=== PATIENT | male | born 1945 | race Caucasian/White ===

== ENCOUNTER 2018-08-12 12:45 | Emergency (ER) | payer MEDICARE, OTHER, SELFPAY ==
[2018-08-12 12:48] VITALS: BP 192/105; PULSE 68; RESP 18; TEMP 36.7; O2SAT 97
--- NOTE | 2018-08-12 13:16 | ED.ABDPAIN ---
HPI - Abdominal Pain General Chief Complaint: Abdominal Pain Stated Complaint: SEVERE ABD PAIN Time Seen by Provider: 08/12/18 12:55 Source: patient Mode of arrival: ambulatory Limitations: no limitations History of Present Illness HPI narrative: Patient is a 73-year-old male with a history of kidney stones and myositis was at physical therapy today when he felt like he could not continue because of abdominal pain. He states that last night he went to bed without any symptoms. Woke up at 0200 hr in the morning with some right-sided abdominal pain. He did go back to sleep. When he woke up again the pain was there again in potential little bit worse. It has worsened throughout the day. Some nausea but no vomiting. Did have a bowel movement and urinated without any symptoms and did not changes abdominal pain. He has had prior abdominal surgeries. Has had his appendix removed. Has not tried anything for symptoms prior to arrival Related Data Home Medications Medication Instructions Recorded Confirmed allopurinol 300 mg PO DAILY #0 04/10/12 08/12/18 acetaminophen 1 dose PO PRN PRN 08/12/18 08/12/18 aspirin 81 mg PO DAILY 08/12/18 08/12/18 losartan 75 mg PO DAILY 08/12/18 08/12/18 melatonin 1 tab PO BEDTIME PRN 08/12/18 08/12/18 turmeric 1 tab PO DAILY 08/12/18 08/12/18 vit C,T-Ck-yysvv-lutein-zeaxan 1 cap PO BID 08/12/18 08/12/18 [PreserVision AREDS-2] Previous Rx's Medication Instructions Recorded cyclobenzaprine 10 mg PO TID PRN #14 tab 08/12/18 Allergies Allergy/AdvReac Type Severity Reaction Status Date / Time oxycodone [From Percocet] Allergy Intermediate Nausea Verified 08/12/18 12:54 codeine AdvReac Mild Redness of Verified 08/12/18 12:54 Skin Review of Systems Constitutional Denies fever(s) and Denies headache(s) ENT Ears, Nose, Mouth, and Throat: Denies headache(s) Cardiovascular Denies chest pain and Denies dyspnea Respiratory Denies dyspnea Gastrointestinal Gastrointestinal: Reports abdominal pain, Denies change in stool character, Reports nausea and Denies vomiting Genitourinary Denies hematuria, Denies flank pain, Denies urinary incontinence and Denies urinary urgency Musculoskeletal Denies myalgias and Denies arthralgias Integumentary/Breasts Denies rash Neurologic Denies headache(s) Hematologic/Lymphatic Comments: On aspirin PFSH Medical History Coronary artery disease (Acute) Hyperlipidemia (Acute) Hypertension (Acute) Kidney stones (Acute) Surgical History H/O lithotripsy (Acute) Hx of appendectomy (Acute) Social History Smoking Status: Former smoker Social History Smoking Status: Former smoker Exam Initial Vital Signs Initial Vital Signs: Vital Signs Temperature 98.1 F 08/12/18 12:48 Pulse Rate 68 08/12/18 12:48 Respiratory Rate 18 08/12/18 12:48 Blood Pressure 192/105 H 08/12/18 12:48 Pulse Oximetry 97 08/12/18 12:48 Const General: cooperative, healthy appearing, comfortable, well developed, well groomed and No acute distress Orientation: alert, awake and oriented x3 HENMT Head: normal to inspection and normocephalic Resp Effort & Inspection: normal respiratory effort Auscultation: clear to auscultation bilaterally Cardio Rate: regular rate Rhythm: regular rhythm GI Inspection: non-distended Palpation: soft, No firm, No guarding and tender (Right upper quadrant and right side of abdomen) Back/Spine/Pelvis Back: No CVA tenderness Skin Lesions: no lesions Rashes: no rashes Neuro General: alert, awake and oriented x3 Cognition: normal cognition Speech: speech normal Gait: normal gait Extrem General: normal to inspection and capillary refill normal Psych Appearance: grossly normal and well kempt Attitude: cooperative Course Orders Ordered: ED Orders 08/12/18 12:55 EKG-12 Lead Stat 08/12/18 13:17 CT abdomen pelvis w con Stat 08/12/18 13:20 CKMB Panel (CK + CKMB) Stat Complete Blood Count AUTO DIFF Stat Comprehensive Metabolic Panel Stat Lipase Stat 08/12/18 13:32 Partial Thromboplastin Time Stat Prothrombin Time INR Stat 08/12/18 15:04 Urine Microscopic Stat Discontinued Medications Sodium Chloride (Normal Saline 0.9%) 1,000 mls @ 1,000 mls/hr IV BOLUS ONE Stop: 08/12/18 13:54 Last Infusion: 08/12/18 14:45 Dose: 0 mls/hr Admin: 08/12/18 13:31 Dose: 1,000 mls/hr Vital Signs - 8 hr 08/12/18 12:48 08/12/18 13:35 08/12/18 14:00 Temperature 98.1 F Pulse Rate 68 66 66 Respiratory Rate 18 14 16 Blood Pressure 192/105 H Blood Pressure [Left Arm] 169/94 H 172/98 H Pulse Oximetry 97 95 93 08/12/18 15:03 Temperature Pulse Rate 67 Respiratory Rate 20 Blood Pressure Blood Pressure [Left Arm] 180/99 H Pulse Oximetry 98 MDM - Abdominal Pain Lab Data Attestation: I reviewed the patient's lab results. Result diagrams: 08/12/18 13:20 08/12/18 13:20 Lab Results 08/12/18 08/12/18 08/12/18 Range/Units 13:20 13:20 13:20 WBC 9.1 (4.5-11.0) X10^3/uL RBC 4.61 (4.5-5.9) X10^6/uL Hgb 15.5 (13.5-17.5) g/dL Hct 45.7 (41-53) % MCV 99.1 (80-100) fL MCH 33.6 (26-34) PG MCHC 34.0 (30-36) % RDW 13.7 (11.6-14.8) % Plt Count 209 (150-400) X10^3/uL Neut % (Auto) 59.8 (50-75) % Lymph % (Auto) 23.3 L (25-40) % [place] % (Auto) 12.6 (3-14) % Eos % (Auto) 3.1 (2-4) % Baso % (Auto) 1.2 (0-2) % Neut # (Auto) 5400 (0954-7113) /uL Lymph # (Auto) 2100 (2727-8236) /uL [place] # (Auto) 1100 H (0-900) /uL Eos # (Auto) 300 (0-450) /uL Baso # (Auto) 100 (0-100) /uL PT (10.1-12.7) SECONDS INR (0.9-1.3) APTT (26.4-36.2) SECONDS Sodium 139 (137-145) mmol/L Potassium 4.1 (3.4-5.1) mmol/L Chloride 105 (98-107) mmol/L Carbon Dioxide 23 (22-32) mmol/L BUN 20 (9-20) mg/dL Creatinine 0.80 (0.66-1.25) mg/dL Estimated GFR > 60.0 (>60) mL/min BUN/Creatinine Ratio 25.0 H (6-22) Glucose 118 H (80-110) mg/dL Calcium 9.1 (8.4-10.2) mg/dL Total Bilirubin 0.7 (0.2-1.3) mg/dL AST 63 H (17-59) IU/L ALT 61 (21-72) IU/L Alkaline Phosphatase 59 (38-126) U/L Total Creatine Kinase Cancelled CK-MB (CK-2) (<2.37) ng/mL CK-MB (CK-2) Rel Index (1.5-5.0) % Total Protein 8.1 (6.3-8.2) g/dL Albumin 4.4 (3.5-5.0) g/dL Globulin 3.7 (1.7-4.1) g/dL Albumin/Globulin Ratio 1.2 (1.0-2.8) Lipase 172 (23-300) U/L Urine RBC (0-5/HPF) Urine WBC (0-5/HPF) Urine Bacteria (None) Ur Culture Indicated? 08/12/18 08/12/18 08/12/18 Range/Units 13:20 13:32 15:04 WBC (4.5-11.0) X10^3/uL RBC (4.5-5.9) X10^6/uL Hgb (13.5-17.5) g/dL Hct (41-53) % MCV (80-100) fL MCH (26-34) PG MCHC (30-36) % RDW (11.6-14.8) % Plt Count (150-400) X10^3/uL Neut % (Auto) (50-75) % Lymph % (Auto) (25-40) % [place] % (Auto) (3-14) % Eos % (Auto) (2-4) % Baso % (Auto) (0-2) % Neut # (Auto) (4265-7500) /uL Lymph # (Auto) (8146-7126) /uL [place] # (Auto) (0-900) /uL Eos # (Auto) (0-450) /uL Baso # (Auto) (0-100) /uL PT 12.7 (10.1-12.7) SECONDS INR 1.1 (0.9-1.3) APTT 34 (26.4-36.2) SECONDS Sodium (137-145) mmol/L Potassium (3.4-5.1) mmol/L Chloride (98-107) mmol/L Carbon Dioxide (22-32) mmol/L BUN (9-20) mg/dL Creatinine (0.66-1.25) mg/dL Estimated GFR (>60) mL/min BUN/Creatinine Ratio (6-22) Glucose (80-110) mg/dL Calcium (8.4-10.2) mg/dL Total Bilirubin (0.2-1.3) mg/dL AST (17-59) IU/L ALT (21-72) IU/L Alkaline Phosphatase (38-126) U/L Total Creatine Kinase 742 H CK-MB (CK-2) 18.80 H (<2.37) ng/mL CK-MB (CK-2) Rel Index 2.5 (1.5-5.0) % Total Protein (6.3-8.2) g/dL Albumin (3.5-5.0) g/dL Globulin (1.7-4.1) g/dL Albumin/Globulin Ratio (1.0-2.8) Lipase (23-300) U/L Urine RBC 5-10/hpf H (0-5/HPF) Urine WBC None seen (0-5/HPF) Urine Bacteria None seen (None) Ur Culture Indicated? Cult not indicated Point of care testing: Urine Dip Bedside Urine Glucose Negative Bedside Urine Bilirubin - Negative Bedside Urine Ketone - Negative Urine Specific [place] 1.020 Bedside Urine Occult Blood +/- Bedside Urine pH 6.0 Bedside Urine Protein +/- 15 Bedside Urine Urobilinogen - Negative Bedside Urine Nitrite - Negative Bedside Urine Leukocytes - Negative Esterase Imaging Data CT scan - abdomen: Radiologist's impression: PROCEDURE: CT ABDOMEN PELVIS W CON INDICATIONS: right-sided abdominal pain TECHNIQUE: After the administration of intravenous contrast, 5 mm thick sections acquired from the diaphragm to the symphysis. 5 mm coronal and sagittal reformats were acquired. For radiation dose reduction, the following was used: automated exposure control, adjustment of mA and/or kV according to patient size. COMPARISON: [facility], MR, L-SPINE WITHOUT CONTRAST, 10/17/2015, 18:49. [facility], CT, KIDNEY/ URETER/BLADDER, 02/17/2011, 14:42. Formerly [facility], CT, ABDOMEN WITH AND WITHOUT CONTR, 07/09/2011, 10:57. Former[facility], CT, ABDOMEN/PELVIS WITH CONTRAST, 09/27/2004, 15:28. FINDINGS: Image quality: Significant streak artifact is present within the pelvis obscuring areas of evaluation secondary to metallic streak artifact from bilateral hip arthroplasty. ABDOMEN: Lung bases: Lung bases are clear. Heart size is normal. Solid organs: Liver is normal in size. Steatosis is present. Previous focus of relative enhancement within the medial right hepatic lobe is not well seen on current exam. Gallbladder is unremarkable. Biliary system is non dilated. Pancreas enhances normally. Spleen is normal in size and enhancement. No adrenal nodules. Kidneys are are mildly atrophic bilaterally, left greater than right. Multiple sub-centimeter renal calculi are present, appearing unchanged. Left renal cyst is unchanged. Peritoneum and bowel: Bowel loops demonstrate normal wall thickness and caliber. No free fluid or air. Nodes and vessels: No retroperitoneal or mesenteric adenopathy by size criteria. Aorta and inferior vena cava are normal in size. Miscellaneous: Fat-containing ventral hernia is noted. PELVIS: Genitourinary: Bladder wall thickness is normal. It is noted that significant portions of the inferior bladder are not well evaluated secondary to significant metallic streak artifact from bilateral hip arthroplasty. Miscellaneous: No inguinal hernias or adenopathy. Bones: No suspicious bony lesions. Superior endplate deformity at L3 is unchanged. IMPRESSION: 1. No visualized cause of acute right-sided abdominal pain. 2. Bilateral renal calculi, unchanged. No obstruction. Dictated by: Shabnam Rudolph M.D. on 08/12/2018 at 14:58 Approved by: Shabnam Rudolph M.D. on 08/12/2018 at 15:05 ECG Data Attestation: I personally reviewed and interpreted this ECG as follows: Prior ECG tracings: not available for review Interpretation: Sinus rhythm Ventricular rate is 65 First degree AV block Normal QRS Normal QTC Occasional PACs No ST T wave changes MDM Narrative Medical decision making narrative: Patient's CT scan was negative. Labs unremarkable. His CK today is actually better than what it has been in the past according to the patient. With a negative CT scan and unremarkable labs I do suspect that his symptoms today are musculoskeletal. He does have hydrocodone at home. Will send home with Flexeril. He has no rashes consistent with zoster. Patient was given return precautions. Will hold on further workup for now. With he and his expressed understanding and agreement with plan. Discharge Plan Departure Patient Disposition: Home Clinical Impression: Muscle spasm Abdominal pain Qualifiers: Abdominal location: unspecified location Qualified Code(s): R10.9 - Unspecified abdominal pain Instructions: DI for Abdominal Pain-Adult, DI for Muscle Spasm Activity Restrictions/Additional Instructions: I would recommend that you call Dr. Mojica for a follow-up. Take the pain medication you have at home for any discomfort. He could also take the muscle relaxer that you were given today for any discomfort as well. These medications can make you drowsy so no driving. Return to the emergency department for any new or worsening symptoms Prescriptions: New cyclobenzaprine 10 mg tablet 10 mg PO TID PRN (Reason: muscle spasm) Qty: 14 RF: 0 No Action allopurinol 300 MG tablet 300 mg PO DAILY Qty: 0 RF: 0 losartan 50 mg Tablet 75 mg PO DAILY RF: 0 acetaminophen 325 mg Tablet 1 dose PO PRN PRN (Reason: pain) RF: 0 aspirin 81 mg Tablet,Delayed Release (Dr/Ec) 81 mg PO DAILY RF: 0 PreserVision AREDS-2 [id number] Capsule 1 cap PO BID RF: 0 melatonin 1 tab PO BEDTIME PRN (Reason: Insomnia) RF: 0 turmeric 1 tab PO DAILY RF: 0 Referrals: Spike Mojica MD [Primary Care Provider] -
[2018-08-12] MEDS: SODIUM CHLORIDE 0.9% 1,000 ML 1000 ML IV (13:31)
[2018-08-12 13:33] LABS: Add Manual Diff / Slide Review NO; Basophils Absolute Auto 100 /uL (0-100); Basophils Percent Auto 1.2 % (0-2); Eosinophils Absolute Auto 300 /uL (0-450); Eosinophils Percent Auto 3.1 % (2-4); Hematocrit 45.7 % (41-53); Hemoglobin 15.5 g/dL (13.5-17.5); Lymphocytes Absolute Auto 2100 /uL (1100-4500); Lymphocytes Percent Auto 23.3 % (25-40); Mean Corpuscular Hemoglobin 33.6 PG (26-34); Mean Corpuscular Volume 99.1 fL (80-100); Monocytes Absolute Auto 1100 /uL (0-900); Monocytes Percent Auto 12.6 % (3-14); Neutrophils Absolute Auto 5400 /uL (1500-7000); Neutrophils Percent Auto 59.8 % (50-75); Platelet Count 209 X10^3/uL (150-400); Red Blood Cell Count 4.61 X10^6/uL (4.5-5.9); Red Cell Distribution Width 13.7 % (11.6-14.8); White Blood Cell Count 9.1 X10^3/uL (4.5-11.0)
[2018-08-12 13:35] VITALS: BP 169/94; PULSE 66; RESP 14; O2SAT 95
[2018-08-12 13:39] LABS: Creatine Kinase 742 U/L (55-170)
[2018-08-12 13:41] LABS: Alanine Aminotransferase 61 IU/L (21-72); Albumin 4.4 g/dL (3.5-5.0); Albumin Globulin Ratio 1.2 (1.0-2.8); Alkaline Phosphatase 59 U/L (38-126); Aspartate Aminotransferase 63 IU/L (17-59); Bilirubin Total 0.7 mg/dL (0.2-1.3); Blood Urea Nitrogen 20 mg/dL (9-20); Calcium 9.1 mg/dL (8.4-10.2); Carbon Dioxide 23 mmol/L (22-32); Chloride 105 mmol/L (98-107); Estimated Glomerular Filt Rate > 60.0 mL/min (>60); Globulin 3.7 g/dL (1.7-4.1); Glucose 118 mg/dL (80-110); HEMOLYSIS 27 (0-50); Lipase 172 U/L (23-300); Potassium 4.1 mmol/L (3.4-5.1); Sodium 139 mmol/L (137-145); Total Protein 8.1 g/dL (6.3-8.2)
[2018-08-12 13:43] LABS: INR 1.1 (0.9-1.3); Prothrombin Time 12.7 SECONDS (10.1-12.7)
[2018-08-12 13:46] LABS: PTT Partial Thromboplastin Tim 34 SECONDS (26.4-36.2)
[2018-08-12 13:55] LABS: CKMB % Relative Index 2.5 % (1.5-5.0)
[2018-08-12 14:00] VITALS: BP 172/98; PULSE 66; RESP 16; O2SAT 93
[2018-08-12 15:03] VITALS: BP 180/99; PULSE 67; RESP 20; O2SAT 98
[2018-08-12 15:25] LABS: Bacteria Urine None Seen; WBC Urine None Seen (0-5/HPF)
[2018-08-12 15:45] LABS: Culture Indicated Urine Cult Not Indicated; RBC Urine 5-10/HPF (0-5/HPF)
[2018-08-12 16:08] VITALS: BP 171/104; PULSE 65; RESP 19; O2SAT 97
== END 2018-08-12 16:09 | disposition home or self-care (01) ==
PROVIDERS: Emergency Provider Emergency Medicine; PCP Family Medicine
DX: R10.9 Unspecified abdominal pain (principal)
CPT/HCPCS: 36415; 36591; 74177; 80053; 81003; 81015; 82550; 82553; 83690; 85025; 85610; 85730; 93005; 96360; 99283; 99285; Q9967

== ENCOUNTER 2018-12-15 12:00 | Outpatient (RCR) | payer MEDICARE, OTHER, SELFPAY ==
--- NOTE | 2018-05-01 12:45 | PT.OIE ---
Current Diagnoses Myositis, unspecified (05/01/18) Provider Visit Care Team Role Provider Type Clement Deleon MD Family Provider Physician Specialty: Cardiology Address: [address] [place] [address] [address], [place], [address] Email: Spike Mojica MD Attending Provider Physician Primary Care Provider Specialty: Family Practice Address: [address] [facility] [place], [address] Email: Physical Therapy Initial Evaluation PT-OP-A Visit Information Start: 05/02/18 13:13 Freq: Status: Active Protocol: Document 05/01/18 12:45 RCC (Rec: 05/02/18 13:42 RCC [email or web address]) Out-Patient Physical Therapy Visit Information Visit Information Visit Type Initial Evaluation Visit Start Time 12:00 Visit Stop Time 12:45 Total Visit Minutes 45 Visit Number 1 Number of RESEARCH PROFESSIONAL Visits 0 Evaluation Information Evaluation Date 05/01/18 PT-OP-B Current Condition Start: 05/02/18 13:13 Freq: Status: Active Protocol: Document 05/01/18 12:45 RCC (Rec: 05/02/18 13:42 RCC [email or web address]) Current Condition History of Current Condition Onset Date 2015 Current Complaints SOB, weakness, unable to ambulate for exercise, pain all over body History of Current Condition Pt is a 73 y/o male presenting to physical therapy with a c/ o weakness, SOB with activity, pain throughout the body and inability to walk outdoors for exercise. 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 He states that initially his weakness and loss of function gradually started in 2015 after his from cancer. Pt admits he would sit for 6-8 hours a day, doing nothing. He has a complex medical history (see below). Pt admits that now he is embarrassed to see what little exercise he can do now but is extremely motivated to get better. He has found a female partner which he would like to be able to walk outdoors on trails with. 2 years ago, he was able to walk about 2.5 miles using walking sticks/poles. Treatment Goals Patient/Caregiver Goals walk outdoors on trails for exercise (walking on pavement increases his arthritic pain). Prior Functional Status Baseline Function- Mobility Modified Independent Baseline Function- Gait modified indep with increased time to travel community distances Baseline Function- Recreation/Hobbies trail walking 2.5 miles with walking sticks (2 yrs ago) Current Functional Impairments (Reported) Functional Limitations- Mobility/Gait fatigue/SOB and increased pain with community ambulation Functional Limitations- Recreation/ unable to perform Hobbies Personal Factors Other Personal Factors That May Effect cardiac history with 2 stents Therapy/Recovery placed, OA, L popliteal artery surgery/reconstruction, h/o prostate CA with radiation (45 sessions), HTN, B MIGUEL, depression since 2015 ( of spouse), multiple back and knee surgeries. PT-OP-E Functional Tests Start: 05/02/18 13:13 Freq: Status: Active Protocol: Document 05/01/18 12:45 RCC (Rec: 05/02/18 13:42 RCC [email or web address]) Functional Tests 6 Minute Walk Test Distance 803 Device Used none Comments 2 standing rest breaks; O2 saturation 92-96% on RA, HR 80 to 109 bpm PT-OP-G Mobility & Gait Start: 05/02/18 13:13 Freq: Status: Active Protocol: Document 05/01/18 12:45 RCC (Rec: 05/02/18 13:42 RCC [email or web address]) OP Mobility Evaluation Bed Mobility Rolling indep. Supine to and from Sit indep. but slow due to pain/ weakness OP Gait Assessment Gait Deviations General Gait Pattern Antalgic Decreased Feet Clearance Flexed Trunk Lateral Trunk Lean Wide Based Gait Stair Climbing Evaluation Evaluation Level of Assist On Stairs Independent Devices Stair Climbing Assistive Devices Left Railing Right Railing Technique/Endurance Stair Climbing Direction Ascend and Descend Stair Climbing Technique Step Over Step Number of Steps Climbed 6 Comments Stair Climbing Comments antalgic, excessive BLE ER, decreased eccentric control of B knees when descending. PT-OP-M Strength Start: 05/02/18 13:13 Freq: Status: Active Protocol: Document 05/01/18 12:45 RCC (Rec: 05/02/18 13:42 RCC [email or web address]) Hip Strength Hip Manual Muscle Testing Right Flexion (L2) 3+ Fair+ External Rotation 3 Fair Internal Rotation 4 Good Left Flexion (L2) 4- Good- External Rotation 3 Fair Internal Rotation 4 Good Knee Strength Knee Manual Muscle Testing Right Flexion (S2) 4 Good Extension (L3) 4+ Good+ Left Flexion (S2) 4- Good- Extension (L3) 4 Good Ankle/Foot Strength Ankle and Foot Manual Muscle Testing Right Dorsiflexion (L4) 4+ Good+ Left Dorsiflexion (L4) 4+ Good+ PT-OP-T Assessment and Plan Start: 05/02/18 13:13 Freq: Status: Active Protocol: Document 05/01/18 12:45 RCC (Rec: 05/02/18 13:42 RCC [email or web address]) Physical Therapy Assessment Rehab Potential Rehabilitation Potential Good Evaluation Complexity Number of Personal Factors/Comorbidities 3 or More Number of Body Systems Impaired 4 or More Clinical Presentation at Evaluation Evolving Impairments Impairments Activity Tolerance Functional Activities Functional Mobility Gait Pain Posture Strength Goals 6 minute walk test Impairment 6 MWT- 803 ft Short Term Goal (STG) >1,000 ft with 6 Minute Walk Test to improve exercise tolerance and decrease risk for falls. STG Duration 4 weeks Bowling Floor Desk Clerk Goal (LTG) >1,200 ft with 6 Minute Walk Test to improve exercise tolerance and decrease risk for falls. LTG Duration 8 weeks trail walking Impairment inability to walk on trails due to pain and fatigue Short Term Goal (STG) pt will walk outdoors on trails with bilateral walking sticks for 15 min, 3 days per week. STG Duration 4 weeks Bowling Floor Desk Clerk Goal (LTG) pt will walk outdoors on trails with bilateral walking sticks for 30 min, 5 days per week as part of an indep. home program for exercise and cardiovascular benefits. LTG Duration 8 weeks LE strength Impairment LE weakness Short Term Goal (STG) 4/5 or greater LE strength with MMT to improve functional mobility and tolerance to stairs in community. STG Duration 4 weeks Retirement Goal (LTG) 4+/5 or greater LE strength with MMT to improve functional mobility and tolerance to stairs in community. LTG Duration 8 weeks Assessment Summary Assessment Pt presents with multiple co- morbidities which have impaired his overall function progressively worsening since the passing of his 2 years ago. Pt is not longer able to perform daily activities, including outdoor ambulation/walking program, due to weakness, pain, and overall deconditioning. Pt appears highly motivated to improve, but is not safe to perform indep. home exercise program yet for strengthening and cardiovascular activities. Pt with general LE weakness, and is only able to ambulate 803 ft in 6 minutes (peers in his age group mean distance is >1500 ft) therefore he is well below the normal activity level for peers of the same age. Pt would greatly benefit from skilled physical therapy to progress his strength, gait tolerance, and overall improvements with activity level to progress toward his functional goals and be able to tolerate stairs and walking outdoors with his significant other. Pt would greatly benefit from aquatic physical therapy as well, but pt admits to feeling apprehensive given his current physical appearance. Physical Therapy Plan Frequency and Duration Frequency of Treatment 3x/Week Duration of Treatment 8 weeks Plan of Care Start Date 05/01/18 Plan of Care End Date 06/26/18 Therapeutic Interventions Therapeutic Interventions Aquatic Therapy Balance Training Gait Training Home Exercise Program Manual Therapy Neuromuscular Re-education Orthotic/Prosthetic Management Patient/Caregiver Education Self-Care/Home Management Taping Therapeutic Activities Therapeutic Exercises Modalities Cold Pack/Ice Massage Electric Stimulation Hot Packs Ultrasound Next Visit Focus/Plan Next Note Type Treatment Note Next Visit Plan hip IR/ER strengthening, Shuttle leg press, B heel raises, Sci-fit (<5 min), hip flexion (standing or supine and add to HEP).
--- NOTE | 2018-05-02 12:45 | PT.OIE ---
Current Diagnoses Myositis, unspecified (05/01/18) Provider Visit Care Team Role Provider Type Clement Deleon MD Family Provider Physician Specialty: Cardiology Address: [address] [place] [address] [address], [place], [address] Email: Spike Mojica MD Attending Provider Physician Primary Care Provider Specialty: Family Practice Address: [address] [facility], [address] Email: Physical Therapy Initial Evaluation PT-OP-A Visit Information Start: 05/02/18 13:13 Freq: Status: Active Protocol: Document 05/01/18 12:45 RCC (Rec: 05/02/18 13:42 RCC [email or web address]) Out-Patient Physical Therapy Visit Information Visit Information Visit Type Initial Evaluation Visit Start Time 12:00 Visit Stop Time 12:45 Total Visit Minutes 45 Visit Number 1 Number of VEHICLE CARE SPECIALIST Visits 0 Evaluation Information Evaluation Date 05/01/18 PT-OP-B Current Condition Start: 05/02/18 13:13 Freq: Status: Active Protocol: Document 05/01/18 12:45 RCC (Rec: 05/02/18 13:42 RCC [email or web address]) Current Condition History of Current Condition Onset Date 2015 Current Complaints SOB, weakness, unable to ambulate for exercise, pain all over body History of Current Condition Pt is a 73 y/o male presenting to physical therapy with a c/ o weakness, SOB with activity, pain throughout the body and inability to walk outdoors for exercise. 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 He states that initially his weakness and loss of function gradually started in 2015 after his from cancer. Pt admits he would sit for 6-8 hours a day, doing nothing. He has a complex medical history (see below). Pt admits that now he is embarrassed to see what little exercise he can do now but is extremely motivated to get better. He has found a female partner which he would like to be able to walk outdoors on trails with. 2 years ago, he was able to walk about 2.5 miles using walking sticks/poles. Treatment Goals Patient/Caregiver Goals walk outdoors on trails for exercise (walking on pavement increases his arthritic pain). Prior Functional Status Baseline Function- Mobility Modified Independent Baseline Function- Gait modified indep with increased time to travel community distances Baseline Function- Recreation/Hobbies trail walking 2.5 miles with walking sticks (2 yrs ago) Current Functional Impairments (Reported) Functional Limitations- Mobility/Gait fatigue/SOB and increased pain with community ambulation Functional Limitations- Recreation/ unable to perform Hobbies Personal Factors Other Personal Factors That May Effect cardiac history with 2 stents Therapy/Recovery placed, OA, L popliteal artery surgery/reconstruction, h/o prostate CA with radiation (45 sessions), HTN, B MIGUEL, depression since 2015 ( of spouse), multiple back and knee surgeries. PT-OP-E Functional Tests Start: 05/02/18 13:13 Freq: Status: Active Protocol: Document 05/01/18 12:45 RCC (Rec: 05/02/18 13:42 RCC [email or web address]) Functional Tests 6 Minute Walk Test Distance 803 Device Used none Comments 2 standing rest breaks; O2 saturation 92-96% on RA, HR 80 to 109 bpm PT-OP-G Mobility & Gait Start: 05/02/18 13:13 Freq: Status: Active Protocol: Document 05/01/18 12:45 RCC (Rec: 05/02/18 13:42 RCC [email or web address]) OP Mobility Evaluation Bed Mobility Rolling indep. Supine to and from Sit indep. but slow due to pain/ weakness OP Gait Assessment Gait Deviations General Gait Pattern Antalgic Decreased Feet Clearance Flexed Trunk Lateral Trunk Lean Wide Based Gait Stair Climbing Evaluation Evaluation Level of Assist On Stairs Independent Devices Stair Climbing Assistive Devices Left Railing Right Railing Technique/Endurance Stair Climbing Direction Ascend and Descend Stair Climbing Technique Step Over Step Number of Steps Climbed 6 Comments Stair Climbing Comments antalgic, excessive BLE ER, decreased eccentric control of B knees when descending. PT-OP-M Strength Start: 05/02/18 13:13 Freq: Status: Active Protocol: Document 05/01/18 12:45 RCC (Rec: 05/02/18 13:42 RCC [email or web address]) Hip Strength Hip Manual Muscle Testing Right Flexion (L2) 3+ Fair+ External Rotation 3 Fair Internal Rotation 4 Good Left Flexion (L2) 4- Good- External Rotation 3 Fair Internal Rotation 4 Good Knee Strength Knee Manual Muscle Testing Right Flexion (S2) 4 Good Extension (L3) 4+ Good+ Left Flexion (S2) 4- Good- Extension (L3) 4 Good Ankle/Foot Strength Ankle and Foot Manual Muscle Testing Right Dorsiflexion (L4) 4+ Good+ Left Dorsiflexion (L4) 4+ Good+ PT-OP-T Assessment and Plan Start: 05/02/18 13:13 Freq: Status: Active Protocol: Document 05/01/18 12:45 RCC (Rec: 05/02/18 13:42 RCC [email or web address]) Physical Therapy Assessment Rehab Potential Rehabilitation Potential Good Evaluation Complexity Number of Personal Factors/Comorbidities 3 or More Number of Body Systems Impaired 4 or More Clinical Presentation at Evaluation Evolving Impairments Impairments Activity Tolerance Functional Activities Functional Mobility Gait Pain Posture Strength Goals 6 minute walk test Impairment 6 MWT- 803 ft Short Term Goal (STG) >1,000 ft with 6 Minute Walk Test to improve exercise tolerance and decrease risk for falls. STG Duration 4 weeks Wood Tile Installer Goal (LTG) >1,200 ft with 6 Minute Walk Test to improve exercise tolerance and decrease risk for falls. LTG Duration 8 weeks trail walking Impairment inability to walk on trails due to pain and fatigue Short Term Goal (STG) pt will walk outdoors on trails with bilateral walking sticks for 15 min, 3 days per week. STG Duration 4 weeks Wood Tile Installer Goal (LTG) pt will walk outdoors on trails with bilateral walking sticks for 30 min, 5 days per week as part of an indep. home program for exercise and cardiovascular benefits. LTG Duration 8 weeks LE strength Impairment LE weakness Short Term Goal (STG) 4/5 or greater LE strength with MMT to improve functional mobility and tolerance to stairs in community. STG Duration 4 weeks Half-Way Goal (LTG) 4+/5 or greater LE strength with MMT to improve functional mobility and tolerance to stairs in community. LTG Duration 8 weeks Assessment Summary Assessment Pt presents with multiple co- morbidities which have impaired his overall function progressively worsening since the passing of his 2 years ago. Pt is not longer able to perform daily activities, including outdoor ambulation/walking program, due to weakness, pain, and overall deconditioning. Pt appears highly motivated to improve, but is not safe to perform indep. home exercise program yet for strengthening and cardiovascular activities. Pt with general LE weakness, and is only able to ambulate 803 ft in 6 minutes (peers in his age group mean distance is >1500 ft) therefore he is well below the normal activity level for peers of the same age. Pt would greatly benefit from skilled physical therapy to progress his strength, gait tolerance, and overall improvements with activity level to progress toward his functional goals and be able to tolerate stairs and walking outdoors with his significant other. Pt would greatly benefit from aquatic physical therapy as well, but pt admits to feeling apprehensive given his current physical appearance. Physical Therapy Plan Frequency and Duration Frequency of Treatment 3x/Week Duration of Treatment 8 weeks Plan of Care Start Date 05/01/18 Plan of Care End Date 06/26/18 Therapeutic Interventions Therapeutic Interventions Aquatic Therapy Balance Training Gait Training Home Exercise Program Manual Therapy Neuromuscular Re-education Orthotic/Prosthetic Management Patient/Caregiver Education Self-Care/Home Management Taping Therapeutic Activities Therapeutic Exercises Modalities Cold Pack/Ice Massage Electric Stimulation Hot Packs Ultrasound Next Visit Focus/Plan Next Note Type Treatment Note Next Visit Plan hip IR/ER strengthening, Shuttle leg press, B heel raises, Sci-fit (<5 min), hip flexion (standing or supine and add to HEP).
--- NOTE | 2018-05-05 16:44 | PT.OTN ---
Current Diagnoses Myositis, unspecified (05/05/18) Physical Therapy Treatment Note PT-OP-A Visit Information Start: 05/02/18 13:13 Freq: Status: Active Protocol: Document 05/05/18 16:37 GGD (Rec: 05/05/18 16:43 GGD [email or web address]) Out-Patient Physical Therapy Visit Information Visit Information Visit Type Treatment Note Visit Start Time 14:30 Visit Stop Time 15:15 Total Visit Minutes 45 Visit Number 2 Number of SENIOR OPERATIONS ANALYST Visits 1 Evaluation Information Evaluation Date 05/01/18 PT-OP-B Current Condition Start: 05/02/18 13:13 Freq: Status: Active Protocol: Document 05/01/18 12:45 RCC (Rec: 05/02/18 13:42 RCC [email or web address]) Current Condition History of Current Condition Onset Date 2015 Current Complaints SOB, weakness, unable to ambulate for exercise, pain all over body History of Current Condition Pt is a 73 y/o male presenting to physical therapy with a c/ o weakness, SOB with activity, pain throughout the body and inability to walk outdoors for exercise. 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 He states that initially his weakness and loss of function gradually started in 2015 after his from cancer. Pt admits he would sit for 6-8 hours a day, doing nothing. He has a complex medical history (see below). Pt admits that now he is embarrassed to see what little exercise he can do now but is extremely motivated to get better. He has found a female partner which he would like to be able to walk outdoors on trails with. 2 years ago, he was able to walk about 2.5 miles using walking sticks/poles. Treatment Goals Patient/Caregiver Goals walk outdoors on trails for exercise (walking on pavement increases his arthritic pain). Prior Functional Status Baseline Function- Mobility Modified Independent Baseline Function- Gait modified indep with increased time to travel community distances Baseline Function- Recreation/Hobbies trail walking 2.5 miles with walking sticks (2 yrs ago) Current Functional Impairments (Reported) Functional Limitations- Mobility/Gait fatigue/SOB and increased pain with community ambulation Functional Limitations- Recreation/ unable to perform Hobbies Personal Factors Other Personal Factors That May Effect cardiac history with 2 stents Therapy/Recovery placed, OA, L popliteal artery surgery/reconstruction, h/o prostate CA with radiation (45 sessions), HTN, B MIGUEL, depression since 2016 ( of spouse), multiple back and knee surgeries. PT-OP-C Subjective Start: 05/02/18 13:13 Freq: Status: Active Protocol: Document 05/05/18 16:37 GGD (Rec: 05/05/18 16:43 GGD [email or web address]) OP-PT Subjective Patient Comments Patient Comments Pt states he is sore today. PT-OP-E Functional Tests Start: 05/02/18 13:13 Freq: Status: Active Protocol: Document 05/01/18 12:45 RCC (Rec: 05/02/18 13:42 RCC [email or web address]) Functional Tests 6 Minute Walk Test Distance 803 Device Used none Comments 2 standing rest breaks; O2 saturation 92-96% on RA, HR 80 to 109 bpm PT-OP-G Mobility & Gait Start: 05/02/18 13:13 Freq: Status: Active Protocol: Document 05/01/18 12:45 RCC (Rec: 05/02/18 13:42 RCC [email or web address]) OP Mobility Evaluation Bed Mobility Rolling indep. Supine to and from Sit indep. but slow due to pain/ weakness OP Gait Assessment Gait Deviations General Gait Pattern Antalgic Decreased Feet Clearance Flexed Trunk Lateral Trunk Lean Wide Based Gait Stair Climbing Evaluation Evaluation Level of Assist On Stairs Independent Devices Stair Climbing Assistive Devices Left Railing Right Railing Technique/Endurance Stair Climbing Direction Ascend and Descend Stair Climbing Technique Step Over Step Number of Steps Climbed 6 Comments Stair Climbing Comments antalgic, excessive BLE ER, decreased eccentric control of B knees when descending. PT-OP-M Strength Start: 05/02/18 13:13 Freq: Status: Active Protocol: Document 05/01/18 12:45 RCC (Rec: 05/02/18 13:42 RCC [email or web address]) Hip Strength Hip Manual Muscle Testing Right Flexion (L2) 3+ Fair+ External Rotation 3 Fair Internal Rotation 4 Good Left Flexion (L2) 4- Good- External Rotation 3 Fair Internal Rotation 4 Good Knee Strength Knee Manual Muscle Testing Right Flexion (S2) 4 Good Extension (L3) 4+ Good+ Left Flexion (S2) 4- Good- Extension (L3) 4 Good Ankle/Foot Strength Ankle and Foot Manual Muscle Testing Right Dorsiflexion (L4) 4+ Good+ Left Dorsiflexion (L4) 4+ Good+ PT-OP-Q Treatments Start: 05/02/18 13:13 Freq: Status: Active Protocol: Document 05/05/18 16:37 GGD (Rec: 05/05/18 16:43 GGD [email or web address]) Cardio Equipment Recumbent Stepper (Sci-Fit) Duration (Minutes) 6 Resistance 1 Gym Equipment Shuttle Recovery Unilateral Squats Resistance 50# Reps/Time 4 Bilateral Squats Resistance 87# Reps/Time 3 Therapeutic Exercises Supine Exercises 1 Supine Exercise Name SLR Side bilateral Reps/Minutes 10 Sidelying Exercises 2 Sidelying Exercise Name reverse Clamshells Side bilateral Reps/Minutes 15 1 Sidelying Exercise Name Clamshells Side bilateral Reps/Minutes 15 Standing Exercises 2 Standing Exercise Name marches Side bilateral Reps/Minutes 10 1 Standing Exercise Name Heel raises Side bilateral Reps/Minutes 20 Neuro Re-Education Treatment Balance Activities 1 Details SLS Reps/Duration 4 Self-Care/Home Management Treatment Education Patient Education Home Exercise Program PT-OP-T Assessment and Plan Start: 05/02/18 13:13 Freq: Status: Active Protocol: Document 05/05/18 16:37 GGD (Rec: 05/05/18 16:43 GGD [email or web address]) Physical Therapy Assessment Assessment Summary Assessment Pt need cues for pace with exercises. He did fatigue, but didn't need rest breaks. HE was able to progress HEP without increase in pain. Physical Therapy Plan Frequency and Duration Frequency of Treatment 3x/Week Duration of Treatment 8 weeks Plan of Care Start Date 05/01/18 Plan of Care End Date 06/26/18 Next Visit Focus/Plan Next Note Type Treatment Note Next Visit Plan Progress LE strengthening, balance and HEP.
--- NOTE | 2018-05-08 10:30 | PT.OTN ---
Current Diagnoses Myositis, unspecified (05/08/18) Physical Therapy Treatment Note PT-OP-A Visit Information Start: 05/02/18 13:13 Freq: Status: Active Protocol: Document 05/08/18 10:30 RCC (Rec: 05/08/18 15:48 RCC [email or web address]) Out-Patient Physical Therapy Visit Information Visit Information Visit Type Treatment Note Visit Start Time 09:47 Visit Stop Time 10:30 Total Visit Minutes 43 Visit Number 3 Number of ALMOND PASTE MIXER Visits 0 Evaluation Information Evaluation Date 05/01/18 PT-OP-B Current Condition Start: 05/02/18 13:13 Freq: Status: Active Protocol: Document 05/01/18 12:45 RCC (Rec: 05/02/18 13:42 RCC [email or web address]) Current Condition History of Current Condition Onset Date 2015 Current Complaints SOB, weakness, unable to ambulate for exercise, pain all over body History of Current Condition Pt is a 73 y/o male presenting to physical therapy with a c/ o weakness, SOB with activity, pain throughout the body and inability to walk outdoors for exercise. 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 He states that initially his weakness and loss of function gradually started in 2015 after his from cancer. Pt admits he would sit for 6-8 hours a day, doing nothing. He has a complex medical history (see below). Pt admits that now he is embarrassed to see what little exercise he can do now but is extremely motivated to get better. He has found a female partner which he would like to be able to walk outdoors on trails with. 2 years ago, he was able to walk about 2.5 miles using walking sticks/poles. Treatment Goals Patient/Caregiver Goals walk outdoors on trails for exercise (walking on pavement increases his arthritic pain). Prior Functional Status Baseline Function- Mobility Modified Independent Baseline Function- Gait modified indep with increased time to travel community distances Baseline Function- Recreation/Hobbies trail walking 2.5 miles with walking sticks (2 yrs ago) Current Functional Impairments (Reported) Functional Limitations- Mobility/Gait fatigue/SOB and increased pain with community ambulation Functional Limitations- Recreation/ unable to perform Hobbies Personal Factors Other Personal Factors That May Effect cardiac history with 2 stents Therapy/Recovery placed, OA, L popliteal artery surgery/reconstruction, h/o prostate CA with radiation (45 sessions), HTN, B MIGUEL, depression since 2016 ( of spouse), multiple back and knee surgeries. PT-OP-C Subjective Start: 05/02/18 13:13 Freq: Status: Active Protocol: Document 05/08/18 10:30 RCC (Rec: 05/08/18 15:48 RCC [email or web address]) OP-PT Subjective Patient Comments Patient Comments Pt was sore but no increased pain since last session. PT-OP-E Functional Tests Start: 05/02/18 13:13 Freq: Status: Active Protocol: Document 05/01/18 12:45 RCC (Rec: 05/02/18 13:42 RCC [email or web address]) Functional Tests 6 Minute Walk Test Distance 803 Device Used none Comments 2 standing rest breaks; O2 saturation 92-96% on RA, HR 80 to 109 bpm PT-OP-G Mobility & Gait Start: 05/02/18 13:13 Freq: Status: Active Protocol: Document 05/01/18 12:45 RCC (Rec: 05/02/18 13:42 RCC [email or web address]) OP Mobility Evaluation Bed Mobility Rolling indep. Supine to and from Sit indep. but slow due to pain/ weakness OP Gait Assessment Gait Deviations General Gait Pattern Antalgic Decreased Feet Clearance Flexed Trunk Lateral Trunk Lean Wide Based Gait Stair Climbing Evaluation Evaluation Level of Assist On Stairs Independent Devices Stair Climbing Assistive Devices Left Railing Right Railing Technique/Endurance Stair Climbing Direction Ascend and Descend Stair Climbing Technique Step Over Step Number of Steps Climbed 6 Comments Stair Climbing Comments antalgic, excessive BLE ER, decreased eccentric control of B knees when descending. PT-OP-M Strength Start: 05/02/18 13:13 Freq: Status: Active Protocol: Document 05/01/18 12:45 RCC (Rec: 05/02/18 13:42 RCC [email or web address]) Hip Strength Hip Manual Muscle Testing Right Flexion (L2) 3+ Fair+ External Rotation 3 Fair Internal Rotation 4 Good Left Flexion (L2) 4- Good- External Rotation 3 Fair Internal Rotation 4 Good Knee Strength Knee Manual Muscle Testing Right Flexion (S2) 4 Good Extension (L3) 4+ Good+ Left Flexion (S2) 4- Good- Extension (L3) 4 Good Ankle/Foot Strength Ankle and Foot Manual Muscle Testing Right Dorsiflexion (L4) 4+ Good+ Left Dorsiflexion (L4) 4+ Good+ PT-OP-Q Treatments Start: 05/02/18 13:13 Freq: Status: Active Protocol: Document 05/08/18 10:30 RCC (Rec: 05/08/18 15:48 RCC [email or web address]) Cardio Equipment Recumbent Stepper (Sci-Fit) Duration (Minutes) 8 Resistance 2 Other 1.37 mi Gym Equipment Cable Column (Body Solid) Leg Curl Resistance 50# Reps/Time 2x15 Leg Extension Resistance 40# Reps/Time 2x15 Shuttle Recovery Unilateral Squats Resistance 50# Reps/Time 2x15 Bilateral Squats Resistance 87# Reps/Time 2x15 Therapeutic Exercises Standing Exercises heel cord stretch Standing Exercise Name heel cord stretch Side bilateral Equipment Used HOLLY Reps/Minutes 2x30 sec HS stretch Standing Exercise Name hamstring stretch Side bilateral Equipment Used stairs Reps/Minutes 2x30 sec resisted walking Standing Exercise Name lateral, forward, backward Side bilateral Resistance L2 band Reps/Minutes 2 laps each PT-OP-T Assessment and Plan Start: 05/02/18 13:13 Freq: Status: Active Protocol: Document 05/08/18 10:30 RCC (Rec: 05/08/18 15:48 RCC [email or web address]) Physical Therapy Assessment Assessment Summary Assessment Pt required manual assistance getting off of the Shuttle Recovery leg press today due to low back, but no increased low back pain today after session. Pt would greatly benefit from careful progression of core stability to support lumbar spine. He continues to be highly motivated to participate in therapy. Physical Therapy Plan Frequency and Duration Frequency of Treatment 3x/Week Duration of Treatment 8 weeks Plan of Care Start Date 05/01/18 Plan of Care End Date 06/26/18 Next Visit Focus/Plan Next Note Type Treatment Note Next Visit Plan transverse abdominal activation->to marching, core activation in standing ( Shuttle Balance Board?)
--- NOTE | 2018-05-11 15:24 | PT.OTN ---
Current Diagnoses Myositis, unspecified (05/11/18) Physical Therapy Treatment Note PT-OP-A Visit Information Start: 05/02/18 13:13 Freq: Status: Active Protocol: Document 05/11/18 08:21 EA (Rec: 05/11/18 08:26 EA [id number]) Out-Patient Physical Therapy Visit Information Visit Information Visit Type Treatment Note Visit Start Time 07:30 Visit Stop Time 08:13 Total Visit Minutes 43 Visit Number 4 Number of KITCHEN STEWARDESS Visits 0 PT-OP-B Current Condition Start: 05/02/18 13:13 Freq: Status: Active Protocol: Document 05/01/18 12:45 RCC (Rec: 05/02/18 13:42 RCC [email or web address]) Current Condition History of Current Condition Onset Date 2015 Current Complaints SOB, weakness, unable to ambulate for exercise, pain all over body History of Current Condition Pt is a 73 y/o male presenting to physical therapy with a c/ o weakness, SOB with activity, pain throughout the body and inability to walk outdoors for exercise. 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 He states that initially his weakness and loss of function gradually started in 2015 after his from cancer. Pt admits he would sit for 6-8 hours a day, doing nothing. He has a complex medical history (see below). Pt admits that now he is embarrassed to see what little exercise he can do now but is extremely motivated to get better. He has found a female partner which he would like to be able to walk outdoors on trails with. 2 years ago, he was able to walk about 2.5 miles using walking sticks/poles. Treatment Goals Patient/Caregiver Goals walk outdoors on trails for exercise (walking on pavement increases his arthritic pain). Prior Functional Status Baseline Function- Mobility Modified Independent Baseline Function- Gait modified indep with increased time to travel community distances Baseline Function- Recreation/Hobbies trail walking 2.5 miles with walking sticks (2 yrs ago) Current Functional Impairments (Reported) Functional Limitations- Mobility/Gait fatigue/SOB and increased pain with community ambulation Functional Limitations- Recreation/ unable to perform Hobbies Personal Factors Other Personal Factors That May Effect cardiac history with 2 stents Therapy/Recovery placed, OA, L popliteal artery surgery/reconstruction, h/o prostate CA with radiation (45 sessions), HTN, B MIGUEL, depression since 2016 ( of spouse), multiple back and knee surgeries. PT-OP-C Subjective Start: 05/02/18 13:13 Freq: Status: Active Protocol: Document 05/11/18 08:21 EA (Rec: 05/11/18 08:26 EA [id number]) OP-PT Subjective Patient Comments Patient Comments Pt reports went for a trail work for 30 mins with his partner;states balance is quite an issue this time. PT-OP-E Functional Tests Start: 05/02/18 13:13 Freq: Status: Active Protocol: Document 05/01/18 12:45 RCC (Rec: 05/02/18 13:42 RCC [email or web address]) Functional Tests 6 Minute Walk Test Distance 803 Device Used none Comments 2 standing rest breaks; O2 saturation 92-96% on RA, HR 80 to 109 bpm PT-OP-G Mobility & Gait Start: 05/02/18 13:13 Freq: Status: Active Protocol: Document 05/01/18 12:45 RCC (Rec: 05/02/18 13:42 RCC [email or web address]) OP Mobility Evaluation Bed Mobility Rolling indep. Supine to and from Sit indep. but slow due to pain/ weakness OP Gait Assessment Gait Deviations General Gait Pattern Antalgic Decreased Feet Clearance Flexed Trunk Lateral Trunk Lean Wide Based Gait Stair Climbing Evaluation Evaluation Level of Assist On Stairs Independent Devices Stair Climbing Assistive Devices Left Railing Right Railing Technique/Endurance Stair Climbing Direction Ascend and Descend Stair Climbing Technique Step Over Step Number of Steps Climbed 6 Comments Stair Climbing Comments antalgic, excessive BLE ER, decreased eccentric control of B knees when descending. PT-OP-M Strength Start: 05/02/18 13:13 Freq: Status: Active Protocol: Document 05/01/18 12:45 RCC (Rec: 05/02/18 13:42 RCC [email or web address]) Hip Strength Hip Manual Muscle Testing Right Flexion (L2) 3+ Fair+ External Rotation 3 Fair Internal Rotation 4 Good Left Flexion (L2) 4- Good- External Rotation 3 Fair Internal Rotation 4 Good Knee Strength Knee Manual Muscle Testing Right Flexion (S2) 4 Good Extension (L3) 4+ Good+ Left Flexion (S2) 4- Good- Extension (L3) 4 Good Ankle/Foot Strength Ankle and Foot Manual Muscle Testing Right Dorsiflexion (L4) 4+ Good+ Left Dorsiflexion (L4) 4+ Good+ PT-OP-Q Treatments Start: 05/02/18 13:13 Freq: Status: Active Protocol: Document 05/11/18 08:21 EA (Rec: 05/11/18 08:26 EA [id number]) Cardio Equipment Recumbent Stepper (Sci-Fit) Duration (Minutes) 9 Resistance 2 Other 1.4 mi Gym Equipment Cable Column (Body Solid) Leg Curl Resistance 50# Reps/Time 2x15 Leg Extension Resistance 40# Reps/Time 2x15 Shuttle Recovery Unilateral Squats Resistance 50# Reps/Time 2x15 Bilateral Squats Resistance 100# Reps/Time 2x15 Therapeutic Exercises Supine Exercises 1 Supine Exercise Name SLR Side bilateral Reps/Minutes 10 Sidelying Exercises 2 Sidelying Exercise Name reverse Clamshells Side bilateral Reps/Minutes 15 Standing Exercises heel cord stretch Standing Exercise Name heel cord stretch Side bilateral Equipment Used HOLLY Reps/Minutes 2x30 sec HS stretch Standing Exercise Name hamstring stretch Side bilateral Equipment Used stairs Reps/Minutes 2x30 sec 2 Standing Exercise Name marches Side bilateral Reps/Minutes 10 1 Standing Exercise Name Heel raises Side bilateral Reps/Minutes 20 PT-OP-T Assessment and Plan Start: 05/02/18 13:13 Freq: Status: Active Protocol: Document 05/11/18 08:21 EA (Rec: 05/11/18 08:26 EA [id number]) Physical Therapy Assessment Assessment Summary Assessment Pt required manual assistance getting off/on of the Shuttle Recovery leg press today; SOB still noted and that's why frequent rests was required. Patient will cont with current program. Physical Therapy Plan Next Visit Focus/Plan Next Note Type Treatment Note Next Visit Plan transverse abdominal activation->to marching, core activation in standing ( Shuttle Balance Board?)
--- NOTE | 2018-05-12 14:27 | PT.OTN ---
Current Diagnoses Myositis, unspecified (05/12/18) Physical Therapy Treatment Note PT-OP-A Visit Information Start: 05/02/18 13:13 Freq: Status: Active Protocol: Document 05/12/18 13:36 LRN (Rec: 05/12/18 14:25 LRN [id number]) Out-Patient Physical Therapy Visit Information Visit Information Visit Type Treatment Note Visit Start Time 13:36 Visit Stop Time 14:21 Total Visit Minutes 45 Visit Number 5 Number of SIGN POSTER Visits 0 Evaluation Information Evaluation Date 05/01/18 PT-OP-B Current Condition Start: 05/02/18 13:13 Freq: Status: Active Protocol: Document 05/01/18 12:45 RCC (Rec: 05/02/18 13:42 RCC [email or web address]) Current Condition History of Current Condition Onset Date 2015 Current Complaints SOB, weakness, unable to ambulate for exercise, pain all over body History of Current Condition Pt is a 73 y/o male presenting to physical therapy with a c/ o weakness, SOB with activity, pain throughout the body and inability to walk outdoors for exercise. 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 He states that initially his weakness and loss of function gradually started in 2015 after his from cancer. Pt admits he would sit for 6-8 hours a day, doing nothing. He has a complex medical history (see below). Pt admits that now he is embarrassed to see what little exercise he can do now but is extremely motivated to get better. He has found a female partner which he would like to be able to walk outdoors on trails with. 2 years ago, he was able to walk about 2.5 miles using walking sticks/poles. Treatment Goals Patient/Caregiver Goals walk outdoors on trails for exercise (walking on pavement increases his arthritic pain). Prior Functional Status Baseline Function- Mobility Modified Independent Baseline Function- Gait modified indep with increased time to travel community distances Baseline Function- Recreation/Hobbies trail walking 2.5 miles with walking sticks (2 yrs ago) Current Functional Impairments (Reported) Functional Limitations- Mobility/Gait fatigue/SOB and increased pain with community ambulation Functional Limitations- Recreation/ unable to perform Hobbies Personal Factors Other Personal Factors That May Effect cardiac history with 2 stents Therapy/Recovery placed, OA, L popliteal artery surgery/reconstruction, h/o prostate CA with radiation (45 sessions), HTN, B MIGUEL, depression since 2016 ( of spouse), multiple back and knee surgeries. PT-OP-C Subjective Start: 05/02/18 13:13 Freq: Status: Active Protocol: Document 05/12/18 13:36 LRN (Rec: 05/12/18 14:25 LRN [id number]) OP-PT Subjective Patient Comments Patient Comments States he is sore from the work out yesterday in PT. PT-OP-E Functional Tests Start: 05/02/18 13:13 Freq: Status: Active Protocol: Document 05/01/18 12:45 RCC (Rec: 05/02/18 13:42 RCC [email or web address]) Functional Tests 6 Minute Walk Test Distance 803 Device Used none Comments 2 standing rest breaks; O2 saturation 92-96% on RA, HR 80 to 109 bpm PT-OP-G Mobility & Gait Start: 05/02/18 13:13 Freq: Status: Active Protocol: Document 05/01/18 12:45 RCC (Rec: 05/02/18 13:42 RCC [email or web address]) OP Mobility Evaluation Bed Mobility Rolling indep. Supine to and from Sit indep. but slow due to pain/ weakness OP Gait Assessment Gait Deviations General Gait Pattern Antalgic Decreased Feet Clearance Flexed Trunk Lateral Trunk Lean Wide Based Gait Stair Climbing Evaluation Evaluation Level of Assist On Stairs Independent Devices Stair Climbing Assistive Devices Left Railing Right Railing Technique/Endurance Stair Climbing Direction Ascend and Descend Stair Climbing Technique Step Over Step Number of Steps Climbed 6 Comments Stair Climbing Comments antalgic, excessive BLE ER, decreased eccentric control of B knees when descending. PT-OP-M Strength Start: 05/02/18 13:13 Freq: Status: Active Protocol: Document 05/01/18 12:45 RCC (Rec: 05/02/18 13:42 RCC [email or web address]) Hip Strength Hip Manual Muscle Testing Right Flexion (L2) 3+ Fair+ External Rotation 3 Fair Internal Rotation 4 Good Left Flexion (L2) 4- Good- External Rotation 3 Fair Internal Rotation 4 Good Knee Strength Knee Manual Muscle Testing Right Flexion (S2) 4 Good Extension (L3) 4+ Good+ Left Flexion (S2) 4- Good- Extension (L3) 4 Good Ankle/Foot Strength Ankle and Foot Manual Muscle Testing Right Dorsiflexion (L4) 4+ Good+ Left Dorsiflexion (L4) 4+ Good+ PT-OP-Q Treatments Start: 05/02/18 13:13 Freq: Status: Active Protocol: Document 05/12/18 13:36 LRN (Rec: 05/12/18 14:25 LRN [id number]) Cardio Equipment Recumbent Stepper (Sci-Fit) Duration (Minutes) 10 Resistance 2 Other 1.4 mi Gym Equipment Cable Column (Body Solid) Leg Curl Resistance 50# Reps/Time 2x15, 8x Leg Extension Resistance 40# Reps/Time 2x15 Shuttle Recovery Unilateral Squats Resistance 50# Reps/Time 2x15 Bilateral Squats Resistance 100# Reps/Time 2x15 Therapeutic Exercises Sidelying Exercises Transverse Abdominus Sidelying Exercise Name Isometric contraction Side bilateral Reps/Minutes 10x each 2 Sidelying Exercise Name reverse Clamshells Side bilateral Reps/Minutes 15x 1 Sidelying Exercise Name Clamshells Side bilateral Reps/Minutes 15x PT-OP-T Assessment and Plan Start: 05/02/18 13:13 Freq: Status: Active Protocol: Document 05/12/18 13:36 LRN (Rec: 05/12/18 14:25 LRN [id number]) Physical Therapy Assessment Assessment Summary Assessment Pt did not need assist to lift legs into Scifit or Shuttle. SOB still noted. Pt is able to perform a TA contraction but has difficulty maintaining it during functional movements (rolling side to side). Physical Therapy Plan Frequency and Duration Frequency of Treatment 3x/Week Duration of Treatment 8 weeks Plan of Care Start Date 05/01/18 Plan of Care End Date 06/26/18 Next Visit Focus/Plan Next Note Type Treatment Note Next Visit Plan Add Quad stretch bilaterally. Cont with transverse abdominal activation->to marching, core activation in standing (Shuttle Balance Board?)
--- NOTE | 2018-05-19 14:30 | PT.OTN ---
Current Diagnoses Myositis, unspecified (05/19/18) Physical Therapy Treatment Note PT-OP-A Visit Information Start: 05/02/18 13:13 Freq: Status: Active Protocol: Document 05/19/18 10:30 GGD (Rec: 05/19/18 14:30 GGD [email or web address]) Out-Patient Physical Therapy Visit Information Visit Information Visit Type Treatment Note Visit Start Time 10:30 Visit Stop Time 11:11 Total Visit Minutes 41 Visit Number 6 Number of CEMENT LOADER Visits 1 Evaluation Information Evaluation Date 05/01/18 PT-OP-B Current Condition Start: 05/02/18 13:13 Freq: Status: Active Protocol: Document 05/01/18 12:45 RCC (Rec: 05/02/18 13:42 RCC [email or web address]) Current Condition History of Current Condition Onset Date 2015 Current Complaints SOB, weakness, unable to ambulate for exercise, pain all over body History of Current Condition Pt is a 73 y/o male presenting to physical therapy with a c/ o weakness, SOB with activity, pain throughout the body and inability to walk outdoors for exercise. 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 He states that initially his weakness and loss of function gradually started in 2015 after his from cancer. Pt admits he would sit for 6-8 hours a day, doing nothing. He has a complex medical history (see below). Pt admits that now he is embarrassed to see what little exercise he can do now but is extremely motivated to get better. He has found a female partner which he would like to be able to walk outdoors on trails with. 2 years ago, he was able to walk about 2.5 miles using walking sticks/poles. Treatment Goals Patient/Caregiver Goals walk outdoors on trails for exercise (walking on pavement increases his arthritic pain). Prior Functional Status Baseline Function- Mobility Modified Independent Baseline Function- Gait modified indep with increased time to travel community distances Baseline Function- Recreation/Hobbies trail walking 2.5 miles with walking sticks (2 yrs ago) Current Functional Impairments (Reported) Functional Limitations- Mobility/Gait fatigue/SOB and increased pain with community ambulation Functional Limitations- Recreation/ unable to perform Hobbies Personal Factors Other Personal Factors That May Effect cardiac history with 2 stents Therapy/Recovery placed, OA, L popliteal artery surgery/reconstruction, h/o prostate CA with radiation (45 sessions), HTN, B MIGUEL, depression since 2016 ( of spouse), multiple back and knee surgeries. PT-OP-C Subjective Start: 05/02/18 13:13 Freq: Status: Active Protocol: Document 05/19/18 10:30 GGD (Rec: 05/19/18 14:30 GGD [email or web address]) OP-PT Subjective Patient Comments Patient Comments Pt states that he is having a easier time with the stairs. PT-OP-E Functional Tests Start: 05/02/18 13:13 Freq: Status: Active Protocol: Document 05/01/18 12:45 RCC (Rec: 05/02/18 13:42 RCC [email or web address]) Functional Tests 6 Minute Walk Test Distance 803 Device Used none Comments 2 standing rest breaks; O2 saturation 92-96% on RA, HR 80 to 109 bpm PT-OP-G Mobility & Gait Start: 05/02/18 13:13 Freq: Status: Active Protocol: Document 05/01/18 12:45 RCC (Rec: 05/02/18 13:42 RCC [email or web address]) OP Mobility Evaluation Bed Mobility Rolling indep. Supine to and from Sit indep. but slow due to pain/ weakness OP Gait Assessment Gait Deviations General Gait Pattern Antalgic Decreased Feet Clearance Flexed Trunk Lateral Trunk Lean Wide Based Gait Stair Climbing Evaluation Evaluation Level of Assist On Stairs Independent Devices Stair Climbing Assistive Devices Left Railing Right Railing Technique/Endurance Stair Climbing Direction Ascend and Descend Stair Climbing Technique Step Over Step Number of Steps Climbed 6 Comments Stair Climbing Comments antalgic, excessive BLE ER, decreased eccentric control of B knees when descending. PT-OP-M Strength Start: 05/02/18 13:13 Freq: Status: Active Protocol: Document 05/01/18 12:45 RCC (Rec: 05/02/18 13:42 RCC [email or web address]) Hip Strength Hip Manual Muscle Testing Right Flexion (L2) 3+ Fair+ External Rotation 3 Fair Internal Rotation 4 Good Left Flexion (L2) 4- Good- External Rotation 3 Fair Internal Rotation 4 Good Knee Strength Knee Manual Muscle Testing Right Flexion (S2) 4 Good Extension (L3) 4+ Good+ Left Flexion (S2) 4- Good- Extension (L3) 4 Good Ankle/Foot Strength Ankle and Foot Manual Muscle Testing Right Dorsiflexion (L4) 4+ Good+ Left Dorsiflexion (L4) 4+ Good+ PT-OP-Q Treatments Start: 05/02/18 13:13 Freq: Status: Active Protocol: Document 05/19/18 10:30 GGD (Rec: 05/19/18 14:30 GGD [email or web address]) Cardio Equipment Recumbent Stepper (Sci-Fit) Duration (Minutes) 10 Resistance 3 Gym Equipment Cable Column (Body Solid) Leg Curl Resistance 50# Reps/Time 2x15 Leg Extension Resistance 35# Reps/Time 2x15 Shuttle Recovery Unilateral Squats Resistance 50# Reps/Time 2x15 Bilateral Squats Resistance 100# Reps/Time 2x15 Therapeutic Exercises Supine Exercises 4 Supine Exercise Name bridges Side bilateral Reps/Minutes 20 3 Supine Exercise Name pirif stretch Side bilateral Reps/Minutes 2 Comments passive 2 Supine Exercise Name Marching with Transverse abdominus Side bilateral Reps/Minutes 10 1 Supine Exercise Name SLR Side bilateral Reps/Minutes 10 Prone Exercises 1 Prone Exercise Name Quad stretch Side bilateral Reps/Minutes 60 secs. Comments passive Sitting Exercises 1 Sitting Exercise Name hamstring stretch Reps/Minutes 2 Standing Exercises heel cord stretch Standing Exercise Name heel cord stretch Side bilateral Equipment Used HOLLY Reps/Minutes 2x30 sec PT-OP-T Assessment and Plan Start: 05/02/18 13:13 Freq: Status: Active Protocol: Document 05/19/18 10:30 GGD (Rec: 05/19/18 14:30 GGD [email or web address]) Physical Therapy Assessment Goals 6 minute walk test Impairment 6 MWT- 803 ft Short Term Goal (STG) >1,000 ft with 6 Minute Walk Test to improve exercise tolerance and decrease risk for falls. STG Duration 4 weeks Parachute Harness Rigger Goal (LTG) >1,200 ft with 6 Minute Walk Test to improve exercise tolerance and decrease risk for falls. LTG Duration 8 weeks trail walking Impairment inability to walk on trails due to pain and fatigue Short Term Goal (STG) pt will walk outdoors on trails with bilateral walking sticks for 15 min, 3 days per week. STG Duration 4 weeks Custodial Goal (LTG) pt will walk outdoors on trails with bilateral walking sticks for 30 min, 5 days per week as part of an indep. home program for exercise and cardiovascular benefits. LTG Duration 8 weeks LE strength Impairment LE weakness Short Term Goal (STG) 4/5 or greater LE strength with MMT to improve functional mobility and tolerance to stairs in community. STG Duration 4 weeks Custodial Goal (LTG) 4+/5 or greater LE strength with MMT to improve functional mobility and tolerance to stairs in community. LTG Duration 8 weeks Assessment Summary Assessment Pt needed lesss assistance with LE on and off shuttle. He had less knee pain with decrease ressistance on knee extension. He had improved tolerance to exercise. Physical Therapy Plan Frequency and Duration Frequency of Treatment 3x/Week Duration of Treatment 8 weeks Plan of Care Start Date 05/01/18 Plan of Care End Date 06/26/18 Next Visit Focus/Plan Next Note Type Treatment Note Next Visit Plan Progress UE, glute and core strengthening
--- NOTE | 2018-05-21 15:20 | PT.OTN ---
Current Diagnoses Myositis, unspecified (05/21/18) Physical Therapy Treatment Note PT-OP-A Visit Information Start: 05/02/18 13:13 Freq: Status: Active Protocol: Document 05/21/18 15:20 RCC (Rec: 05/21/18 15:37 RCC [email or web address]) Out-Patient Physical Therapy Visit Information Visit Information Visit Type Treatment Note Visit Start Time 14:30 Visit Stop Time 15:20 Total Visit Minutes 50 Visit Number 7 Number of SPEEDER HAND Visits 0 Evaluation Information Evaluation Date 05/01/18 PT-OP-B Current Condition Start: 05/02/18 13:13 Freq: Status: Active Protocol: Document 05/01/18 12:45 RCC (Rec: 05/02/18 13:42 RCC [email or web address]) Current Condition History of Current Condition Onset Date 2015 Current Complaints SOB, weakness, unable to ambulate for exercise, pain all over body History of Current Condition Pt is a 73 y/o male presenting to physical therapy with a c/ o weakness, SOB with activity, pain throughout the body and inability to walk outdoors for exercise. 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 He states that initially his weakness and loss of function gradually started in 2015 after his from cancer. Pt admits he would sit for 6-8 hours a day, doing nothing. He has a complex medical history (see below). Pt admits that now he is embarrassed to see what little exercise he can do now but is extremely motivated to get better. He has found a female partner which he would like to be able to walk outdoors on trails with. 2 years ago, he was able to walk about 2.5 miles using walking sticks/poles. Treatment Goals Patient/Caregiver Goals walk outdoors on trails for exercise (walking on pavement increases his arthritic pain). Prior Functional Status Baseline Function- Mobility Modified Independent Baseline Function- Gait modified indep with increased time to travel community distances Baseline Function- Recreation/Hobbies trail walking 2.5 miles with walking sticks (2 yrs ago) Current Functional Impairments (Reported) Functional Limitations- Mobility/Gait fatigue/SOB and increased pain with community ambulation Functional Limitations- Recreation/ unable to perform Hobbies Personal Factors Other Personal Factors That May Effect cardiac history with 2 stents Therapy/Recovery placed, OA, L popliteal artery surgery/reconstruction, h/o prostate CA with radiation (45 sessions), HTN, B MIGUEL, depression since 2016 ( of spouse), multiple back and knee surgeries. PT-OP-C Subjective Start: 05/02/18 13:13 Freq: Status: Active Protocol: Document 05/21/18 15:20 RCC (Rec: 05/21/18 15:37 RCC [email or web address]) OP-PT Subjective Patient Comments Patient Comments Pt reports some L knee soreness after back to back sessions last week. Pt does feel like it is easier for him to move and is noticing that curbs feel less challenging to him. PT-OP-E Functional Tests Start: 05/02/18 13:13 Freq: Status: Active Protocol: Document 05/01/18 12:45 RCC (Rec: 05/02/18 13:42 RCC [email or web address]) Functional Tests 6 Minute Walk Test Distance 803 Device Used none Comments 2 standing rest breaks; O2 saturation 92-96% on RA, HR 80 to 109 bpm PT-OP-G Mobility & Gait Start: 05/02/18 13:13 Freq: Status: Active Protocol: Document 05/01/18 12:45 RCC (Rec: 05/02/18 13:42 RCC [email or web address]) OP Mobility Evaluation Bed Mobility Rolling indep. Supine to and from Sit indep. but slow due to pain/ weakness OP Gait Assessment Gait Deviations General Gait Pattern Antalgic Decreased Feet Clearance Flexed Trunk Lateral Trunk Lean Wide Based Gait Stair Climbing Evaluation Evaluation Level of Assist On Stairs Independent Devices Stair Climbing Assistive Devices Left Railing Right Railing Technique/Endurance Stair Climbing Direction Ascend and Descend Stair Climbing Technique Step Over Step Number of Steps Climbed 6 Comments Stair Climbing Comments antalgic, excessive BLE ER, decreased eccentric control of B knees when descending. PT-OP-M Strength Start: 05/02/18 13:13 Freq: Status: Active Protocol: Document 05/01/18 12:45 RCC (Rec: 05/02/18 13:42 RCC [email or web address]) Hip Strength Hip Manual Muscle Testing Right Flexion (L2) 3+ Fair+ External Rotation 3 Fair Internal Rotation 4 Good Left Flexion (L2) 4- Good- External Rotation 3 Fair Internal Rotation 4 Good Knee Strength Knee Manual Muscle Testing Right Flexion (S2) 4 Good Extension (L3) 4+ Good+ Left Flexion (S2) 4- Good- Extension (L3) 4 Good Ankle/Foot Strength Ankle and Foot Manual Muscle Testing Right Dorsiflexion (L4) 4+ Good+ Left Dorsiflexion (L4) 4+ Good+ PT-OP-Q Treatments Start: 05/02/18 13:13 Freq: Status: Active Protocol: Document 05/21/18 15:20 RCC (Rec: 05/21/18 15:37 RCC [email or web address]) Cardio Equipment Recumbent Stepper (Sci-Fit) Duration (Minutes) 10 Resistance 3.4 Gym Equipment Cable Column (Body Solid) Rows Resistance 30# Reps/Time 2x15 Lat Pull Down Resistance 40# Reps/Time 2x15 Leg Curl Resistance 50# Reps/Time 2x15 Leg Extension Resistance 40# Reps/Time 2x15 Shuttle Recovery Unilateral Squats Resistance 62# Reps/Time 2x12 Bilateral Squats Resistance 100# Reps/Time 2x15 Therapeutic Exercises Supine Exercises 4 Supine Exercise Name bridges Side bilateral Reps/Minutes 2x15 Standing Exercises push ups Standing Exercise Name push ups using one // bar Side bilateral Reps/Minutes 2x10 Comments VC back alignment heel cord stretch Standing Exercise Name heel cord stretch Side bilateral Equipment Used HOLLY Reps/Minutes 2x30 sec HS stretch Standing Exercise Name hamstring stretch Side bilateral Equipment Used stairs Reps/Minutes 2x30 sec PT-OP-T Assessment and Plan Start: 05/02/18 13:13 Freq: Status: Active Protocol: Document 05/21/18 15:20 [facility] (Rec: 05/21/18 15:37 [facility] [email or web address]) Physical Therapy Assessment Assessment Summary Assessment Pt able to increase resistance on Shuttle leg press and with leg extension. He fatigues rapidly with push ups using a parallel bar, and he requires cuing to activate his core to stabilize his lumbar spine when fatigued. Physical Therapy Plan Frequency and Duration Frequency of Treatment 3x/Week Duration of Treatment 8 weeks Plan of Care Start Date 05/01/18 Plan of Care End Date 06/26/18 Next Visit Focus/Plan Next Note Type Treatment Note Next Visit Plan lateral step up/down, cont. core strengthening.
--- NOTE | 2018-05-26 14:51 | PT.OTN ---
Current Diagnoses Myositis, unspecified (05/26/18) Physical Therapy Treatment Note PT-OP-A Visit Information Start: 05/02/18 13:13 Freq: Status: Active Protocol: Document 05/26/18 10:30 GGD (Rec: 05/26/18 14:51 GGD [email or web address]) Out-Patient Physical Therapy Visit Information Visit Information Visit Type Treatment Note Visit Start Time 10:30 Visit Stop Time 11:10 Total Visit Minutes 40 Visit Number 8 Number of MALTER OPERATOR Visits 1 Evaluation Information Evaluation Date 05/01/18 PT-OP-B Current Condition Start: 05/02/18 13:13 Freq: Status: Active Protocol: Document 05/01/18 12:45 RCC (Rec: 05/02/18 13:42 RCC [email or web address]) Current Condition History of Current Condition Onset Date 2015 Current Complaints SOB, weakness, unable to ambulate for exercise, pain all over body History of Current Condition Pt is a 73 y/o male presenting to physical therapy with a c/ o weakness, SOB with activity, pain throughout the body and inability to walk outdoors for exercise. 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 He states that initially his weakness and loss of function gradually started in 2015 after his from cancer. Pt admits he would sit for 6-8 hours a day, doing nothing. He has a complex medical history (see below). Pt admits that now he is embarrassed to see what little exercise he can do now but is extremely motivated to get better. He has found a female partner which he would like to be able to walk outdoors on trails with. 2 years ago, he was able to walk about 2.5 miles using walking sticks/poles. Treatment Goals Patient/Caregiver Goals walk outdoors on trails for exercise (walking on pavement increases his arthritic pain). Prior Functional Status Baseline Function- Mobility Modified Independent Baseline Function- Gait modified indep with increased time to travel community distances Baseline Function- Recreation/Hobbies trail walking 2.5 miles with walking sticks (2 yrs ago) Current Functional Impairments (Reported) Functional Limitations- Mobility/Gait fatigue/SOB and increased pain with community ambulation Functional Limitations- Recreation/ unable to perform Hobbies Personal Factors Other Personal Factors That May Effect cardiac history with 2 stents Therapy/Recovery placed, OA, L popliteal artery surgery/reconstruction, h/o prostate CA with radiation (45 sessions), HTN, B MIGUEL, depression since 2016 ( of spouse), multiple back and knee surgeries. PT-OP-C Subjective Start: 05/02/18 13:13 Freq: Status: Active Protocol: Document 05/26/18 10:30 GGD (Rec: 05/26/18 14:51 GGD [email or web address]) OP-PT Subjective Patient Comments Patient Comments Pt states that he had increase in low back pain and quad pain the last two days. He feels the increase in pain is do to stress. PT-OP-E Functional Tests Start: 05/02/18 13:13 Freq: Status: Active Protocol: Document 05/01/18 12:45 RCC (Rec: 05/02/18 13:42 RCC [email or web address]) Functional Tests 6 Minute Walk Test Distance 803 Device Used none Comments 2 standing rest breaks; O2 saturation 92-96% on RA, HR 80 to 109 bpm PT-OP-G Mobility & Gait Start: 05/02/18 13:13 Freq: Status: Active Protocol: Document 05/01/18 12:45 RCC (Rec: 05/02/18 13:42 RCC [email or web address]) OP Mobility Evaluation Bed Mobility Rolling indep. Supine to and from Sit indep. but slow due to pain/ weakness OP Gait Assessment Gait Deviations General Gait Pattern Antalgic Decreased Feet Clearance Flexed Trunk Lateral Trunk Lean Wide Based Gait Stair Climbing Evaluation Evaluation Level of Assist On Stairs Independent Devices Stair Climbing Assistive Devices Left Railing Right Railing Technique/Endurance Stair Climbing Direction Ascend and Descend Stair Climbing Technique Step Over Step Number of Steps Climbed 6 Comments Stair Climbing Comments antalgic, excessive BLE ER, decreased eccentric control of B knees when descending. PT-OP-M Strength Start: 05/02/18 13:13 Freq: Status: Active Protocol: Document 05/01/18 12:45 RCC (Rec: 05/02/18 13:42 RCC [email or web address]) Hip Strength Hip Manual Muscle Testing Right Flexion (L2) 3+ Fair+ External Rotation 3 Fair Internal Rotation 4 Good Left Flexion (L2) 4- Good- External Rotation 3 Fair Internal Rotation 4 Good Knee Strength Knee Manual Muscle Testing Right Flexion (S2) 4 Good Extension (L3) 4+ Good+ Left Flexion (S2) 4- Good- Extension (L3) 4 Good Ankle/Foot Strength Ankle and Foot Manual Muscle Testing Right Dorsiflexion (L4) 4+ Good+ Left Dorsiflexion (L4) 4+ Good+ PT-OP-Q Treatments Start: 05/02/18 13:13 Freq: Status: Active Protocol: Document 05/26/18 10:30 GGD (Rec: 05/26/18 14:51 GGD [email or web address]) Cardio Equipment Recumbent Stepper (Sci-Fit) Duration (Minutes) 10 Resistance 3.4 Gym Equipment Cable Column (Body Solid) Rows Resistance 30# Reps/Time 2x15 Lat Pull Down Resistance 40# Reps/Time 2x15 Leg Curl Resistance 50# Reps/Time 2x15 Leg Extension Resistance 40# Reps/Time 2x15 Shuttle Recovery Unilateral Squats Resistance 62# Reps/Time 2x12 Bilateral Squats Resistance 100# Reps/Time 2x15 Therapeutic Exercises Standing Exercises 3 Standing Exercise Name Lateral step ups Side bilateral Resistance 6 in step Reps/Minutes 10 heel cord stretch Standing Exercise Name heel cord stretch Side bilateral Equipment Used HOLLY Reps/Minutes 2x30 sec HS stretch Standing Exercise Name hamstring stretch Side bilateral Equipment Used stairs Reps/Minutes 2x30 sec PT-OP-T Assessment and Plan Start: 05/02/18 13:13 Freq: Status: Active Protocol: Document 05/26/18 10:30 GGD (Rec: 05/26/18 14:51 GGD [email or web address]) Physical Therapy Assessment Assessment Summary Assessment Pt good tolerance with exercise and not C/O of increase in pain. He did fatigue with with lateral step ups. Physical Therapy Plan Frequency and Duration Frequency of Treatment 3x/Week Duration of Treatment 8 weeks Plan of Care Start Date 05/01/18 Plan of Care End Date 06/26/18 Next Visit Focus/Plan Next Note Type Treatment Note Next Visit Plan advance strengthening as tolerate
--- NOTE | 2018-05-29 14:30 | PT.OTN ---
Current Diagnoses Myositis, unspecified (05/29/18) Physical Therapy Treatment Note PT-OP-A Visit Information Start: 05/02/18 13:13 Freq: Status: Active Protocol: Document 05/29/18 14:30 RCC (Rec: 05/29/18 15:46 RCC [email or web address]) Out-Patient Physical Therapy Visit Information Visit Information Visit Type Treatment Note Visit Start Time 13:45 Visit Stop Time 14:30 Total Visit Minutes 45 Visit Number 9 Number of RN BARIATRIC Visits 0 Evaluation Information Evaluation Date 05/01/18 PT-OP-B Current Condition Start: 05/02/18 13:13 Freq: Status: Active Protocol: Document 05/01/18 12:45 RCC (Rec: 05/02/18 13:42 RCC [email or web address]) Current Condition History of Current Condition Onset Date 2015 Current Complaints SOB, weakness, unable to ambulate for exercise, pain all over body History of Current Condition Pt is a 73 y/o male presenting to physical therapy with a c/ o weakness, SOB with activity, pain throughout the body and inability to walk outdoors for exercise. 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 He states that initially his weakness and loss of function gradually started in 2015 after his from cancer. Pt admits he would sit for 6-8 hours a day, doing nothing. He has a complex medical history (see below). Pt admits that now he is embarrassed to see what little exercise he can do now but is extremely motivated to get better. He has found a female partner which he would like to be able to walk outdoors on trails with. 2 years ago, he was able to walk about 2.5 miles using walking sticks/poles. Treatment Goals Patient/Caregiver Goals walk outdoors on trails for exercise (walking on pavement increases his arthritic pain). Prior Functional Status Baseline Function- Mobility Modified Independent Baseline Function- Gait modified indep with increased time to travel community distances Baseline Function- Recreation/Hobbies trail walking 2.5 miles with walking sticks (2 yrs ago) Current Functional Impairments (Reported) Functional Limitations- Mobility/Gait fatigue/SOB and increased pain with community ambulation Functional Limitations- Recreation/ unable to perform Hobbies Personal Factors Other Personal Factors That May Effect cardiac history with 2 stents Therapy/Recovery placed, OA, L popliteal artery surgery/reconstruction, h/o prostate CA with radiation (45 sessions), HTN, B MIGUEL, depression since 2016 ( of spouse), multiple back and knee surgeries. PT-OP-C Subjective Start: 05/02/18 13:13 Freq: Status: Active Protocol: Document 05/29/18 14:30 RCC (Rec: 05/29/18 15:46 RCC [email or web address]) OP-PT Subjective Patient Comments Patient Comments Pt with increased stress over the past week, feels like this has contributed to some of his back pain. He feels better going up/down stairs and up/down curbs compared to prior to starting PT. PT-OP-E Functional Tests Start: 05/02/18 13:13 Freq: Status: Active Protocol: Document 05/29/18 14:30 RCC (Rec: 05/29/18 15:46 RCC [email or web address]) Functional Tests 6 Minute Walk Test Distance 862 Device Used none PT-OP-G Mobility & Gait Start: 05/02/18 13:13 Freq: Status: Active Protocol: Document 05/29/18 14:30 RCC (Rec: 05/29/18 15:46 RCC [email or web address]) Stair Climbing Evaluation Evaluation Level of Assist On Stairs Independent Devices Stair Climbing Assistive Devices Right Railing Technique/Endurance Stair Climbing Direction Ascend and Descend Stair Climbing Technique Step Over Step Number of Steps Climbed 6 Comments Stair Climbing Comments impaired eccentric control L descending PT-OP-M Strength Start: 05/02/18 13:13 Freq: Status: Active Protocol: Document 05/29/18 14:30 RCC (Rec: 05/29/18 15:46 RCC [email or web address]) Hip Strength Hip Manual Muscle Testing Right Flexion (L2) 4- Good- External Rotation 3 Fair Internal Rotation 4+ Good+ Left Flexion (L2) 4+ Good+ External Rotation 3 Fair Internal Rotation 4+ Good+ Knee Strength Knee Manual Muscle Testing Right Flexion (S2) 4+ Good+ Extension (L3) 5 Normal Left Flexion (S2) 4+ Good+ Extension (L3) 4 Good PT-OP-Q Treatments Start: 05/02/18 13:13 Freq: Status: Active Protocol: Document 05/29/18 14:30 RCC (Rec: 05/29/18 15:46 RCC [email or web address]) Cardio Equipment Recumbent Stepper (Sci-Fit) Duration (Minutes) 10 Resistance 3 Seat Position 16 Therapeutic Exercises Sidelying Exercises 2 Sidelying Exercise Name reverse Clamshells Side bilateral Reps/Minutes 15x 1 Sidelying Exercise Name Clamshells Side bilateral Reps/Minutes 15x Standing Exercises push ups Standing Exercise Name push ups using one // bar Side bilateral Reps/Minutes x10 Comments VC back alignment heel cord stretch Standing Exercise Name heel cord stretch Side bilateral Equipment Used HOLLY Reps/Minutes 2x30 sec HS stretch Standing Exercise Name hamstring stretch Side bilateral Equipment Used stairs Reps/Minutes 2x30 sec Therapeutic Activity Therapeutic Activity LE MMT Comments lower extremity manual muscle testing 6 MWT Comments 6 Minute Walk Test PT-OP-T Assessment and Plan Start: 05/02/18 13:13 Freq: Status: Active Protocol: Document 05/29/18 14:30 RCC (Rec: 05/29/18 15:46 RCC [email or web address]) Physical Therapy Assessment Assessment Summary Assessment Pt required tactile cuing to prevent excessive trunk rotation when performing hip ER. Overall, pt's LE strength has improve with manual muscle testing. His 6 Minute Walk Test was increased to 862 ft, less standing rest breaks, and less pain in low back. Physical Therapy Plan Frequency and Duration Frequency of Treatment 3x/Week Duration of Treatment 8 weeks Plan of Care Start Date 05/01/18 Plan of Care End Date 06/26/18 Next Visit Focus/Plan Next Note Type Treatment Note Next Visit Plan core stability, balance training.
--- NOTE | 2018-06-02 15:06 | PT.OTN ---
Current Diagnoses Myositis, unspecified (06/02/18) Physical Therapy Treatment Note PT-OP-A Visit Information Start: 05/02/18 13:13 Freq: Status: Active Protocol: Document 06/02/18 12:01 GGD (Rec: 06/02/18 15:06 GGD [email or web address]) Out-Patient Physical Therapy Visit Information Visit Information Visit Type Treatment Note Visit Start Time 12:00 Visit Stop Time 12:40 Total Visit Minutes 40 Visit Number 10 Number of FOOD CRITIC Visits 1 Evaluation Information Evaluation Date 05/01/18 PT-OP-B Current Condition Start: 05/02/18 13:13 Freq: Status: Active Protocol: Document 05/01/18 12:45 RCC (Rec: 05/02/18 13:42 RCC [email or web address]) Current Condition History of Current Condition Onset Date 2015 Current Complaints SOB, weakness, unable to ambulate for exercise, pain all over body History of Current Condition Pt is a 73 y/o male presenting to physical therapy with a c/ o weakness, SOB with activity, pain throughout the body and inability to walk outdoors for exercise. 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 He states that initially his weakness and loss of function gradually started in 2015 after his from cancer. Pt admits he would sit for 6-8 hours a day, doing nothing. He has a complex medical history (see below). Pt admits that now he is embarrassed to see what little exercise he can do now but is extremely motivated to get better. He has found a female partner which he would like to be able to walk outdoors on trails with. 2 years ago, he was able to walk about 2.5 miles using walking sticks/poles. Treatment Goals Patient/Caregiver Goals walk outdoors on trails for exercise (walking on pavement increases his arthritic pain). Prior Functional Status Baseline Function- Mobility Modified Independent Baseline Function- Gait modified indep with increased time to travel community distances Baseline Function- Recreation/Hobbies trail walking 2.5 miles with walking sticks (2 yrs ago) Current Functional Impairments (Reported) Functional Limitations- Mobility/Gait fatigue/SOB and increased pain with community ambulation Functional Limitations- Recreation/ unable to perform Hobbies Personal Factors Other Personal Factors That May Effect cardiac history with 2 stents Therapy/Recovery placed, OA, L popliteal artery surgery/reconstruction, h/o prostate CA with radiation (45 sessions), HTN, B MIGUEL, depression since 2016 ( of spouse), multiple back and knee surgeries. PT-OP-C Subjective Start: 05/02/18 13:13 Freq: Status: Active Protocol: Document 06/02/18 12:01 GGD (Rec: 06/02/18 15:06 GGD [email or web address]) OP-PT Subjective Patient Comments Patient Comments Pt states his joints are ache today. PT-OP-E Functional Tests Start: 05/02/18 13:13 Freq: Status: Active Protocol: Document 05/29/18 14:30 RCC (Rec: 05/29/18 15:46 RCC [email or web address]) Functional Tests 6 Minute Walk Test Distance 862 Device Used none PT-OP-G Mobility & Gait Start: 05/02/18 13:13 Freq: Status: Active Protocol: Document 05/29/18 14:30 RCC (Rec: 05/29/18 15:46 RCC [email or web address]) Stair Climbing Evaluation Evaluation Level of Assist On Stairs Independent Devices Stair Climbing Assistive Devices Right Railing Technique/Endurance Stair Climbing Direction Ascend and Descend Stair Climbing Technique Step Over Step Number of Steps Climbed 6 Comments Stair Climbing Comments impaired eccentric control L descending PT-OP-M Strength Start: 05/02/18 13:13 Freq: Status: Active Protocol: Document 05/29/18 14:30 RCC (Rec: 05/29/18 15:46 RCC [email or web address]) Hip Strength Hip Manual Muscle Testing Right Flexion (L2) 4- Good- External Rotation 3 Fair Internal Rotation 4+ Good+ Left Flexion (L2) 4+ Good+ External Rotation 3 Fair Internal Rotation 4+ Good+ Knee Strength Knee Manual Muscle Testing Right Flexion (S2) 4+ Good+ Extension (L3) 5 Normal Left Flexion (S2) 4+ Good+ Extension (L3) 4 Good PT-OP-Q Treatments Start: 05/02/18 13:13 Freq: Status: Active Protocol: Document 06/02/18 12:01 GGD (Rec: 06/02/18 15:06 GGD [email or web address]) Cardio Equipment Recumbent Stepper (Sci-Fit) Duration (Minutes) 10 Resistance 3 Seat Position 16 Gym Equipment Cable Column (Body Solid) Rows Resistance 30# Reps/Time 2x15 Lat Pull Down Resistance 40# Reps/Time 2x15 Leg Curl Resistance 50# Reps/Time 2x15 Leg Extension Resistance 40# Reps/Time 2x15 Shuttle Recovery Unilateral Squats Resistance 62# Reps/Time 2x12 Bilateral Squats Resistance 100# Reps/Time 2x15 Therapeutic Exercises Standing Exercises 3 Standing Exercise Name Lateral step ups Side bilateral Resistance 6 in step Reps/Minutes 10 push ups Standing Exercise Name push ups using one // bar Side bilateral Reps/Minutes x10 Comments VC back alignment heel cord stretch Standing Exercise Name heel cord stretch Side bilateral Equipment Used HOLLY Reps/Minutes 2x30 sec HS stretch Standing Exercise Name hamstring stretch Side bilateral Equipment Used stairs Reps/Minutes 2x30 sec PT-OP-T Assessment and Plan Start: 05/02/18 13:13 Freq: Status: Active Protocol: Document 06/02/18 12:01 GGD (Rec: 06/02/18 15:06 GGD [email or web address]) Physical Therapy Assessment Assessment Summary Assessment Pt needing less cueing. He needs min A for sit to stand from low seat for UE strengthening. Physical Therapy Plan Frequency and Duration Frequency of Treatment 3x/Week Duration of Treatment 8 weeks Plan of Care Start Date 05/01/18 Plan of Care End Date 06/26/18 Next Visit Focus/Plan Next Note Type Treatment Note Next Visit Plan core stability, balance training and flexiblity
--- NOTE | 2018-06-05 12:46 | PT.OTN ---
Current Diagnoses Myositis, unspecified (06/05/18) Physical Therapy Treatment Note PT-OP-A Visit Information Start: 05/02/18 13:13 Freq: Status: Active Protocol: Document 06/05/18 12:46 RCC (Rec: 06/07/18 13:58 RCC [email or web address]) Out-Patient Physical Therapy Visit Information Visit Information Visit Type Treatment Note Visit Start Time 12:00 Visit Stop Time 12:46 Total Visit Minutes 46 Visit Number 11 Number of AUTOMATIC PAINT SPRAYER OPERATOR Visits 0 Evaluation Information Evaluation Date 05/01/18 PT-OP-B Current Condition Start: 05/02/18 13:13 Freq: Status: Active Protocol: Document 05/01/18 12:45 RCC (Rec: 05/02/18 13:42 RCC [email or web address]) Current Condition History of Current Condition Onset Date 2015 Current Complaints SOB, weakness, unable to ambulate for exercise, pain all over body History of Current Condition Pt is a 73 y/o male presenting to physical therapy with a c/ o weakness, SOB with activity, pain throughout the body and inability to walk outdoors for exercise. 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 He states that initially his weakness and loss of function gradually started in 2015 after his from cancer. Pt admits he would sit for 6-8 hours a day, doing nothing. He has a complex medical history (see below). Pt admits that now he is embarrassed to see what little exercise he can do now but is extremely motivated to get better. He has found a female partner which he would like to be able to walk outdoors on trails with. 2 years ago, he was able to walk about 2.5 miles using walking sticks/poles. Treatment Goals Patient/Caregiver Goals walk outdoors on trails for exercise (walking on pavement increases his arthritic pain). Prior Functional Status Baseline Function- Mobility Modified Independent Baseline Function- Gait modified indep with increased time to travel community distances Baseline Function- Recreation/Hobbies trail walking 2.5 miles with walking sticks (2 yrs ago) Current Functional Impairments (Reported) Functional Limitations- Mobility/Gait fatigue/SOB and increased pain with community ambulation Functional Limitations- Recreation/ unable to perform Hobbies Personal Factors Other Personal Factors That May Effect cardiac history with 2 stents Therapy/Recovery placed, OA, L popliteal artery surgery/reconstruction, h/o prostate CA with radiation (45 sessions), HTN, B MIGUEL, depression since 2016 ( of spouse), multiple back and knee surgeries. PT-OP-C Subjective Start: 05/02/18 13:13 Freq: Status: Active Protocol: Document 06/05/18 12:46 RCC (Rec: 06/07/18 13:58 RCC [email or web address]) OP-PT Subjective Patient Comments Patient Comments Pt states stairs are getting easier, but he had issuses with sit to stand from a low seat at a restaurant last night. PT-OP-E Functional Tests Start: 05/02/18 13:13 Freq: Status: Active Protocol: Document 05/29/18 14:30 RCC (Rec: 05/29/18 15:46 RCC [email or web address]) Functional Tests 6 Minute Walk Test Distance 862 Device Used none PT-OP-G Mobility & Gait Start: 05/02/18 13:13 Freq: Status: Active Protocol: Document 05/29/18 14:30 RCC (Rec: 05/29/18 15:46 RCC [email or web address]) Stair Climbing Evaluation Evaluation Level of Assist On Stairs Independent Devices Stair Climbing Assistive Devices Right Railing Technique/Endurance Stair Climbing Direction Ascend and Descend Stair Climbing Technique Step Over Step Number of Steps Climbed 6 Comments Stair Climbing Comments impaired eccentric control L descending PT-OP-M Strength Start: 05/02/18 13:13 Freq: Status: Active Protocol: Document 05/29/18 14:30 RCC (Rec: 05/29/18 15:46 RCC [email or web address]) Hip Strength Hip Manual Muscle Testing Right Flexion (L2) 4- Good- External Rotation 3 Fair Internal Rotation 4+ Good+ Left Flexion (L2) 4+ Good+ External Rotation 3 Fair Internal Rotation 4+ Good+ Knee Strength Knee Manual Muscle Testing Right Flexion (S2) 4+ Good+ Extension (L3) 5 Normal Left Flexion (S2) 4+ Good+ Extension (L3) 4 Good PT-OP-Q Treatments Start: 05/02/18 13:13 Freq: Status: Active Protocol: Document 06/05/18 12:46 RCC (Rec: 06/07/18 13:58 RCC [email or web address]) Cardio Equipment Recumbent Stepper (Sci-Fit) Duration (Minutes) 10 Resistance 3 Seat Position 16 Gym Equipment Cable Column (Body Solid) Rows Resistance 30# Reps/Time 2x15 Lat Pull Down Resistance 40# Reps/Time 2x15 Shuttle Recovery Unilateral Squats Resistance 62# Reps/Time 2x12 Bilateral Squats Resistance 100# Reps/Time 2x15 Therapeutic Exercises Standing Exercises triceps extension Side bilateral Resistance L4 Reps/Minutes 2x10 push ups Standing Exercise Name push ups using one // bar Side bilateral Reps/Minutes x10 Comments VC back alignment heel cord stretch Standing Exercise Name heel cord stretch Side bilateral Equipment Used HOLLY Reps/Minutes 2x30 sec HS stretch Standing Exercise Name hamstring stretch Side bilateral Equipment Used stairs Reps/Minutes 2x30 sec Manual Therapy Treatment Soft Tissue Mobilization lumbar paraspinals and QL Mobilization Type Myofascial Release Rolling Intensity/Depth Moderate Body Position Sidelying Comments bilateral PT-OP-T Assessment and Plan Start: 05/02/18 13:13 Freq: Status: Active Protocol: Document 06/05/18 12:46 RCC (Rec: 06/07/18 13:58 RCC [email or web address]) Physical Therapy Assessment Assessment Summary Assessment Pt with large amounts 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 He was able to stand more erect after manual therapy. Physical Therapy Plan Frequency and Duration Frequency of Treatment 3x/Week Duration of Treatment 8 weeks Plan of Care Start Date 05/01/18 Plan of Care End Date 06/26/18 Next Visit Focus/Plan Next Note Type Treatment Note Next Visit Plan Shuttle balance, elliptical for cardio?
--- NOTE | 2018-06-09 17:21 | PT.OTN ---
Current Diagnoses Myositis, unspecified (06/09/18) Physical Therapy Treatment Note PT-OP-A Visit Information Start: 05/02/18 13:13 Freq: Status: Active Protocol: Document 06/09/18 17:13 GGD (Rec: 06/09/18 17:21 GGD [email or web address]) Out-Patient Physical Therapy Visit Information Visit Information Visit Type Treatment Note Visit Start Time 12:00 Visit Stop Time 12:50 Total Visit Minutes 50 Visit Number 12 Number of EMR TRAINER Visits 1 Evaluation Information Evaluation Date 05/01/18 PT-OP-B Current Condition Start: 05/02/18 13:13 Freq: Status: Active Protocol: Document 05/01/18 12:45 RCC (Rec: 05/02/18 13:42 RCC [email or web address]) Current Condition History of Current Condition Onset Date 2015 Current Complaints SOB, weakness, unable to ambulate for exercise, pain all over body History of Current Condition Pt is a 73 y/o male presenting to physical therapy with a c/ o weakness, SOB with activity, pain throughout the body and inability to walk outdoors for exercise. 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 He states that initially his weakness and loss of function gradually started in 2015 after his from cancer. Pt admits he would sit for 6-8 hours a day, doing nothing. He has a complex medical history (see below). Pt admits that now he is embarrassed to see what little exercise he can do now but is extremely motivated to get better. He has found a female partner which he would like to be able to walk outdoors on trails with. 2 years ago, he was able to walk about 2.5 miles using walking sticks/poles. Treatment Goals Patient/Caregiver Goals walk outdoors on trails for exercise (walking on pavement increases his arthritic pain). Prior Functional Status Baseline Function- Mobility Modified Independent Baseline Function- Gait modified indep with increased time to travel community distances Baseline Function- Recreation/Hobbies trail walking 2.5 miles with walking sticks (2 yrs ago) Current Functional Impairments (Reported) Functional Limitations- Mobility/Gait fatigue/SOB and increased pain with community ambulation Functional Limitations- Recreation/ unable to perform Hobbies Personal Factors Other Personal Factors That May Effect cardiac history with 2 stents Therapy/Recovery placed, OA, L popliteal artery surgery/reconstruction, h/o prostate CA with radiation (45 sessions), HTN, B MIGUEL, depression since 2016 ( of spouse), multiple back and knee surgeries. PT-OP-C Subjective Start: 05/02/18 13:13 Freq: Status: Active Protocol: Document 06/09/18 17:13 GGD (Rec: 06/09/18 17:21 GGD [email or web address]) OP-PT Subjective Patient Comments Patient Comments Pt states he felt less back pain after last visit. PT-OP-E Functional Tests Start: 05/02/18 13:13 Freq: Status: Active Protocol: Document 05/29/18 14:30 RCC (Rec: 05/29/18 15:46 RCC [email or web address]) Functional Tests 6 Minute Walk Test Distance 862 Device Used none PT-OP-G Mobility & Gait Start: 05/02/18 13:13 Freq: Status: Active Protocol: Document 05/29/18 14:30 RCC (Rec: 05/29/18 15:46 RCC [email or web address]) Stair Climbing Evaluation Evaluation Level of Assist On Stairs Independent Devices Stair Climbing Assistive Devices Right Railing Technique/Endurance Stair Climbing Direction Ascend and Descend Stair Climbing Technique Step Over Step Number of Steps Climbed 6 Comments Stair Climbing Comments impaired eccentric control L descending PT-OP-M Strength Start: 05/02/18 13:13 Freq: Status: Active Protocol: Document 05/29/18 14:30 RCC (Rec: 05/29/18 15:46 RCC [email or web address]) Hip Strength Hip Manual Muscle Testing Right Flexion (L2) 4- Good- External Rotation 3 Fair Internal Rotation 4+ Good+ Left Flexion (L2) 4+ Good+ External Rotation 3 Fair Internal Rotation 4+ Good+ Knee Strength Knee Manual Muscle Testing Right Flexion (S2) 4+ Good+ Extension (L3) 5 Normal Left Flexion (S2) 4+ Good+ Extension (L3) 4 Good PT-OP-Q Treatments Start: 05/02/18 13:13 Freq: Status: Active Protocol: Document 06/09/18 17:13 GGD (Rec: 06/09/18 17:21 GGD [email or web address]) Cardio Equipment Elliptical Duration (Minutes) 3 Resistance 0 Other Pt fell getting off and was I for floor to standing Therapeutic Exercises Standing Exercises shoulder extension Standing Exercise Name shoulder extension Side bilateral Resistance L4 triceps extension Side bilateral Resistance L4 Reps/Minutes 2x10 heel cord stretch Standing Exercise Name heel cord stretch Side bilateral Equipment Used HOLLY Reps/Minutes 2x30 sec HS stretch Standing Exercise Name hamstring stretch Side bilateral Equipment Used stairs Reps/Minutes 2x30 sec Manual Therapy Treatment Soft Tissue Mobilization lumbar paraspinals and QL Mobilization Type Myofascial Release Rolling Intensity/Depth Moderate Body Position Sidelying Comments bilateral PT-OP-R Modalities Start: 05/02/18 13:13 Freq: Status: Active Protocol: Document 06/09/18 17:13 GGD (Rec: 06/09/18 17:21 GGD [email or web address]) Hot Pack/Cold Pack Treatment Cold Pack Location L/S Patient Position Sitting Treatment Duration (minutes) 10 Patient Tolerance Good PT-OP-T Assessment and Plan Start: 05/02/18 13:13 Freq: Status: Active Protocol: Document 06/09/18 17:13 GGD (Rec: 06/09/18 17:21 GGD [email or web address]) Physical Therapy Assessment Assessment Summary Assessment Pt fell getting of elliptical to the right. He didn't use the middle step. He landed on right side and was independent with coming to standing. He reported no injury and wanted to continue treatment. Pt good tolerance to light exercise and STM. Physical Therapy Plan Frequency and Duration Frequency of Treatment 3x/Week Duration of Treatment 8 weeks Plan of Care Start Date 05/01/18 Plan of Care End Date 06/26/18 Next Visit Focus/Plan Next Note Type Treatment Note Next Visit Plan Reasse after fall.
--- NOTE | 2018-06-12 13:23 | PT.OTN ---
Current Diagnoses Myositis, unspecified (06/12/18) Physical Therapy Treatment Note PT-OP-A Visit Information Start: 05/02/18 13:13 Freq: Status: Active Protocol: Document 06/12/18 12:00 HH (Rec: 06/12/18 13:23 HH [email or web address]) Out-Patient Physical Therapy Visit Information Visit Information Visit Type Treatment Note Visit Start Time 12:00 Visit Stop Time 12:45 Total Visit Minutes 45 Visit Number 13 Number of PHOTOGRAPHIC PRINTER Visits 1 PT-OP-B Current Condition Start: 05/02/18 13:13 Freq: Status: Active Protocol: Document 05/01/18 12:45 RCC (Rec: 05/02/18 13:42 RCC [email or web address]) Current Condition History of Current Condition Onset Date 2015 Current Complaints SOB, weakness, unable to ambulate for exercise, pain all over body History of Current Condition Pt is a 73 y/o male presenting to physical therapy with a c/ o weakness, SOB with activity, pain throughout the body and inability to walk outdoors for exercise. 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 He states that initially his weakness and loss of function gradually started in 2015 after his from cancer. Pt admits he would sit for 6-8 hours a day, doing nothing. He has a complex medical history (see below). Pt admits that now he is embarrassed to see what little exercise he can do now but is extremely motivated to get better. He has found a female partner which he would like to be able to walk outdoors on trails with. 2 years ago, he was able to walk about 2.5 miles using walking sticks/poles. Treatment Goals Patient/Caregiver Goals walk outdoors on trails for exercise (walking on pavement increases his arthritic pain). Prior Functional Status Baseline Function- Mobility Modified Independent Baseline Function- Gait modified indep with increased time to travel community distances Baseline Function- Recreation/Hobbies trail walking 2.5 miles with walking sticks (2 yrs ago) Current Functional Impairments (Reported) Functional Limitations- Mobility/Gait fatigue/SOB and increased pain with community ambulation Functional Limitations- Recreation/ unable to perform Hobbies Personal Factors Other Personal Factors That May Effect cardiac history with 2 stents Therapy/Recovery placed, OA, L popliteal artery surgery/reconstruction, h/o prostate CA with radiation (45 sessions), HTN, B MIGUEL, depression since 2016 ( of spouse), multiple back and knee surgeries. PT-OP-C Subjective Start: 05/02/18 13:13 Freq: Status: Active Protocol: Document 06/12/18 12:00 HH (Rec: 06/12/18 13:23 HH [email or web address]) OP-PT Subjective Patient Comments Patient Comments Pt fell off from an eliptical last visit and c/o severe L LBP 03/02. Pt is currently taking hydrocodone once every 6 to 8 hours. He c/o pain goes up to 9/10 during mobility and decrease without movement. Pt also c/o lower back spasm during mobility. PT-OP-E Functional Tests Start: 05/02/18 13:13 Freq: Status: Active Protocol: Document 05/29/18 14:30 RCC (Rec: 05/29/18 15:46 RCC [email or web address]) Functional Tests 6 Minute Walk Test Distance 862 Device Used none PT-OP-G Mobility & Gait Start: 05/02/18 13:13 Freq: Status: Active Protocol: Document 05/29/18 14:30 RCC (Rec: 05/29/18 15:46 RCC [email or web address]) Stair Climbing Evaluation Evaluation Level of Assist On Stairs Independent Devices Stair Climbing Assistive Devices Right Railing Technique/Endurance Stair Climbing Direction Ascend and Descend Stair Climbing Technique Step Over Step Number of Steps Climbed 6 Comments Stair Climbing Comments impaired eccentric control L descending PT-OP-M Strength Start: 05/02/18 13:13 Freq: Status: Active Protocol: Document 05/29/18 14:30 RCC (Rec: 05/29/18 15:46 RCC [email or web address]) Hip Strength Hip Manual Muscle Testing Right Flexion (L2) 4- Good- External Rotation 3 Fair Internal Rotation 4+ Good+ Left Flexion (L2) 4+ Good+ External Rotation 3 Fair Internal Rotation 4+ Good+ Knee Strength Knee Manual Muscle Testing Right Flexion (S2) 4+ Good+ Extension (L3) 5 Normal Left Flexion (S2) 4+ Good+ Extension (L3) 4 Good PT-OP-Q Treatments Start: 05/02/18 13:13 Freq: Status: Active Protocol: Document 06/12/18 12:00 HH (Rec: 06/12/18 13:23 HH [email or web address]) Manual Therapy Treatment Soft Tissue Mobilization lumbar paraspinals and QL Body Location IASTM and MR Mobilization Type Myofascial Release Rolling Intensity/Depth Moderate Body Position Sidelying Comments L Nerve Glides passive neural glides Nerve sciatic Body Position Supine Comments passive/ AAROM SLR with L LE Neuro Re-Education Treatment Other Activities isometric trunk ROT Comments MET for lumbar ROT isometric resisted trunk ext and flexion Comments MET for seated trunk ext and flexion supine hip wipers Comments passive / AAROM wipers in supine PT-OP-R Modalities Start: 05/02/18 13:13 Freq: Status: Active Protocol: Document 06/09/18 17:13 GGD (Rec: 06/09/18 17:21 GGD [email or web address]) Hot Pack/Cold Pack Treatment Cold Pack Location L/S Patient Position Sitting Treatment Duration (minutes) 10 Patient Tolerance Good PT-OP-T Assessment and Plan Start: 05/02/18 13:13 Freq: Status: Active Protocol: Document 06/12/18 12:00 HH (Rec: 06/12/18 13:23 HH [email or web address]) Physical Therapy Assessment Assessment Summary Assessment Pt fell getting out of the elliptical last visit. c/o acute L LBP with spasm for past two days who needs to take hydrocodone to reduce his pain. Pt presents increased trunk flexion and L antalgic gait with his cane today due to pain. Pt also presents significant muscle spasm with light touch at L paraspinals today. Pt also demonstrates decreased in segmental mobility with his trunk due to pain. Pt states he feels decrease in LBP and I could move better now after IASTM at paraspinals, MET with overall hip movements to facilitate activation of trunk and hip stabilizers. Physical Therapy Plan Next Visit Focus/Plan Next Note Type Treatment Note Next Visit Plan cont monitor pt's current acute LBP. MET to facilitate segmental mobilty
--- NOTE | 2018-06-17 12:45 | PT.OTN ---
Current Diagnoses Myositis, unspecified (06/17/18) Physical Therapy Treatment Note PT-OP-A Visit Information Start: 05/02/18 13:13 Freq: Status: Active Protocol: Document 06/17/18 12:45 RCC (Rec: 06/17/18 13:39 RCC [email or web address]) Out-Patient Physical Therapy Visit Information Visit Information Visit Type Treatment Note Visit Start Time 12:03 Visit Stop Time 12:45 Total Visit Minutes 42 Visit Number 14 Number of PROGRAM TRAINER Visits 0 Evaluation Information Evaluation Date 05/01/18 Precautions Precautions fall precautions on/off machines PT-OP-B Current Condition Start: 05/02/18 13:13 Freq: Status: Active Protocol: Document 05/01/18 12:45 RCC (Rec: 05/02/18 13:42 RCC [email or web address]) Current Condition History of Current Condition Onset Date 2015 Current Complaints SOB, weakness, unable to ambulate for exercise, pain all over body History of Current Condition Pt is a 73 y/o male presenting to physical therapy with a c/ o weakness, SOB with activity, pain throughout the body and inability to walk outdoors for exercise. 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 He states that initially his weakness and loss of function gradually started in 2016 after his from cancer. Pt admits he would sit for 6-8 hours a day, doing nothing. He has a complex medical history (see below). Pt admits that now he is embarrassed to see what little exercise he can do now but is extremely motivated to get better. He has found a female partner which he would like to be able to walk outdoors on trails with. 2 years ago, he was able to walk about 2.5 miles using walking sticks/poles. Treatment Goals Patient/Caregiver Goals walk outdoors on trails for exercise (walking on pavement increases his arthritic pain). Prior Functional Status Baseline Function- Mobility Modified Independent Baseline Function- Gait modified indep with increased time to travel community distances Baseline Function- Recreation/Hobbies trail walking 2.5 miles with walking sticks (2 yrs ago) Current Functional Impairments (Reported) Functional Limitations- Mobility/Gait fatigue/SOB and increased pain with community ambulation Functional Limitations- Recreation/ unable to perform Hobbies Personal Factors Other Personal Factors That May Effect cardiac history with 2 stents Therapy/Recovery placed, OA, L popliteal artery surgery/reconstruction, h/o prostate CA with radiation (45 sessions), HTN, B MIGUEL, depression since 2016 ( of spouse), multiple back and knee surgeries. PT-OP-C Subjective Start: 05/02/18 13:13 Freq: Status: Active Protocol: Document 06/17/18 12:45 RCC (Rec: 06/17/18 13:39 RCC [email or web address]) OP-PT Subjective Patient Comments Patient Comments Pt states his pain is decreasing somewhat since his fall on Friday of last week, although he does have bruising on the L posterior leg, but it is healing. He had an episode of increased pain in the anterior L hip one time when laying down, but has not happened since then. PT-OP-E Functional Tests Start: 05/02/18 13:13 Freq: Status: Active Protocol: Document 05/29/18 14:30 RCC (Rec: 05/29/18 15:46 RCC [email or web address]) Functional Tests 6 Minute Walk Test Distance 862 Device Used none PT-OP-G Mobility & Gait Start: 05/02/18 13:13 Freq: Status: Active Protocol: Document 05/29/18 14:30 RCC (Rec: 05/29/18 15:46 RCC [email or web address]) Stair Climbing Evaluation Evaluation Level of Assist On Stairs Independent Devices Stair Climbing Assistive Devices Right Railing Technique/Endurance Stair Climbing Direction Ascend and Descend Stair Climbing Technique Step Over Step Number of Steps Climbed 6 Comments Stair Climbing Comments impaired eccentric control L descending PT-OP-M Strength Start: 05/02/18 13:13 Freq: Status: Active Protocol: Document 05/29/18 14:30 RCC (Rec: 05/29/18 15:46 RCC [email or web address]) Hip Strength Hip Manual Muscle Testing Right Flexion (L2) 4- Good- External Rotation 3 Fair Internal Rotation 4+ Good+ Left Flexion (L2) 4+ Good+ External Rotation 3 Fair Internal Rotation 4+ Good+ Knee Strength Knee Manual Muscle Testing Right Flexion (S2) 4+ Good+ Extension (L3) 5 Normal Left Flexion (S2) 4+ Good+ Extension (L3) 4 Good PT-OP-Q Treatments Start: 05/02/18 13:13 Freq: Status: Active Protocol: Document 06/17/18 12:45 RCC (Rec: 06/17/18 13:39 RCC [email or web address]) Manual Therapy Treatment Soft Tissue Mobilization gluteals and piriformis Mobilization Type Myofascial Release Rolling Intensity/Depth Moderate Body Position Sidelying Comments left lumbar paraspinals and QL Mobilization Type Myofascial Release Rolling Intensity/Depth Moderate Body Position Sidelying Comments left Self-Care/Home Management Treatment Education Patient Education Joint Protection Pain Management Other Education discussed with pt and his S.O. about healing process from trauma, i.e. stages of acute vs. subacute healing and more of a gentle approach to getting back to prior level of activity. 10 min PT-OP-R Modalities Start: 05/02/18 13:13 Freq: Status: Active Protocol: Document 06/09/18 17:13 GGD (Rec: 06/09/18 17:21 GGD [email or web address]) Hot Pack/Cold Pack Treatment Cold Pack Location L/S Patient Position Sitting Treatment Duration (minutes) 10 Patient Tolerance Good PT-OP-T Assessment and Plan Start: 05/02/18 13:13 Freq: Status: Active Protocol: Document 06/17/18 12:45 RCC (Rec: 06/17/18 13:39 RCC [email or web address]) Physical Therapy Assessment Assessment Summary Assessment Pt is able to get up/down from a normal height chair with increased amount of time and UE support. He was using a SPC on the R side this session, which appears to be appropriate given his increased pain in the L back and hip. Hopeful to progress his activity tolerance with caution, likely adding back in resistance training slowly starting next week if he continues to improve. Physical Therapy Plan Frequency and Duration Frequency of Treatment 3x/Week Duration of Treatment 8 weeks Plan of Care Start Date 05/01/18 Plan of Care End Date 06/26/18 Next Visit Focus/Plan Next Note Type Treatment Note Next Visit Plan STR and stretching as tolerated, gentle core stabilization (TA activation).
--- NOTE | 2018-06-19 12:50 | PT.OTN ---
Current Diagnoses Myositis, unspecified (06/19/18) Physical Therapy Treatment Note PT-OP-A Visit Information Start: 05/02/18 13:13 Freq: Status: Active Protocol: Document 06/19/18 12:50 RCC (Rec: 06/19/18 13:35 RCC [email or web address]) Out-Patient Physical Therapy Visit Information Visit Information Visit Type Treatment Note Visit Start Time 12:00 Visit Stop Time 12:50 Total Visit Minutes 50 Visit Number 15 Number of DIAGNOSTICS SALES DEVELOPER Visits 0 Evaluation Information Evaluation Date 05/01/18 PT-OP-B Current Condition Start: 05/02/18 13:13 Freq: Status: Active Protocol: Document 05/01/18 12:45 RCC (Rec: 05/02/18 13:42 RCC [email or web address]) Current Condition History of Current Condition Onset Date 2015 Current Complaints SOB, weakness, unable to ambulate for exercise, pain all over body History of Current Condition Pt is a 73 y/o male presenting to physical therapy with a c/ o weakness, SOB with activity, pain throughout the body and inability to walk outdoors for exercise. 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 He states that initially his weakness and loss of function gradually started in 2015 after his from cancer. Pt admits he would sit for 6-8 hours a day, doing nothing. He has a complex medical history (see below). Pt admits that now he is embarrassed to see what little exercise he can do now but is extremely motivated to get better. He has found a female partner which he would like to be able to walk outdoors on trails with. 2 years ago, he was able to walk about 2.5 miles using walking sticks/poles. Treatment Goals Patient/Caregiver Goals walk outdoors on trails for exercise (walking on pavement increases his arthritic pain). Prior Functional Status Baseline Function- Mobility Modified Independent Baseline Function- Gait modified indep with increased time to travel community distances Baseline Function- Recreation/Hobbies trail walking 2.5 miles with walking sticks (2 yrs ago) Current Functional Impairments (Reported) Functional Limitations- Mobility/Gait fatigue/SOB and increased pain with community ambulation Functional Limitations- Recreation/ unable to perform Hobbies Personal Factors Other Personal Factors That May Effect cardiac history with 2 stents Therapy/Recovery placed, OA, L popliteal artery surgery/reconstruction, h/o prostate CA with radiation (45 sessions), HTN, B MIGUEL, depression since 2016 ( of spouse), multiple back and knee surgeries. PT-OP-C Subjective Start: 05/02/18 13:13 Freq: Status: Active Protocol: Document 06/19/18 12:50 RCC (Rec: 06/19/18 13:35 RCC [email or web address]) OP-PT Subjective Patient Comments Patient Comments Pt pain is decreased in the low back, but still present s/ p fall 10 days ago. His main complaint today is feeling weakness in the L quadriceps. PT-OP-E Functional Tests Start: 05/02/18 13:13 Freq: Status: Active Protocol: Document 05/29/18 14:30 RCC (Rec: 05/29/18 15:46 RCC [email or web address]) Functional Tests 6 Minute Walk Test Distance 862 Device Used none PT-OP-G Mobility & Gait Start: 05/02/18 13:13 Freq: Status: Active Protocol: Document 05/29/18 14:30 RCC (Rec: 05/29/18 15:46 RCC [email or web address]) Stair Climbing Evaluation Evaluation Level of Assist On Stairs Independent Devices Stair Climbing Assistive Devices Right Railing Technique/Endurance Stair Climbing Direction Ascend and Descend Stair Climbing Technique Step Over Step Number of Steps Climbed 6 Comments Stair Climbing Comments impaired eccentric control L descending PT-OP-M Strength Start: 05/02/18 13:13 Freq: Status: Active Protocol: Document 05/29/18 14:30 RCC (Rec: 05/29/18 15:46 RCC [email or web address]) Hip Strength Hip Manual Muscle Testing Right Flexion (L2) 4- Good- External Rotation 3 Fair Internal Rotation 4+ Good+ Left Flexion (L2) 4+ Good+ External Rotation 3 Fair Internal Rotation 4+ Good+ Knee Strength Knee Manual Muscle Testing Right Flexion (S2) 4+ Good+ Extension (L3) 5 Normal Left Flexion (S2) 4+ Good+ Extension (L3) 4 Good PT-OP-Q Treatments Start: 05/02/18 13:13 Freq: Status: Active Protocol: Document 06/19/18 12:50 RCC (Rec: 06/19/18 13:35 RCC [email or web address]) Cardio Equipment Recumbent Stepper (Sci-Fit) Duration (Minutes) 8 Resistance 1 Seat Position 16 Gym Equipment Shuttle Recovery Unilateral Squats Details band around L thigh Resistance 37# Reps/Time x15 each Bilateral Squats Resistance 62# Reps/Time 2x15 Therapeutic Exercises Standing Exercises step downs Standing Exercise Name step downs with LLE on 4 block- going down to slanted board on the R Equipment Used // bars Reps/Minutes 15 heel cord stretch Standing Exercise Name heel cord stretch Side bilateral Equipment Used HOLLY Reps/Minutes 2x30 sec HS stretch Standing Exercise Name hamstring stretch Side bilateral Equipment Used stairs Reps/Minutes 2x30 sec Manual Therapy Treatment Soft Tissue Mobilization gluteals and piriformis Mobilization Type Myofascial Release Rolling Intensity/Depth Moderate Body Position Sidelying Comments left lumbar paraspinals and QL Mobilization Type Myofascial Release Rolling Intensity/Depth Moderate Body Position Sidelying Comments bilateral PT-OP-R Modalities Start: 05/02/18 13:13 Freq: Status: Active Protocol: Document 06/09/18 17:13 GGD (Rec: 06/09/18 17:21 GGD [email or web address]) Hot Pack/Cold Pack Treatment Cold Pack Location L/S Patient Position Sitting Treatment Duration (minutes) 10 Patient Tolerance Good PT-OP-T Assessment and Plan Start: 05/02/18 13:13 Freq: Status: Active Protocol: Document 06/19/18 12:50 RCC (Rec: 06/19/18 13:35 RCC [email or web address]) Physical Therapy Assessment Assessment Summary Assessment Pt with difficulty initially with step downs with the LLE on 4 step, requiring the use of a slanted board to decrease the height of the step down. After cuing and training, pt able to perform without c/o pain in anterior knee with proper knee alignment (tended to fall into valgus). Pt was able to increase activity tolerance somewhat today without c/o back pain. Physical Therapy Plan Frequency and Duration Frequency of Treatment 3x/Week Duration of Treatment 8 weeks Plan of Care Start Date 05/01/18 Plan of Care End Date 06/26/18 Next Visit Focus/Plan Next Note Type Treatment Note Next Visit Plan re-introduce UE and LE strengthening as tolerated ( watch for low back pain), increased back to 10 min Sci- fit
--- NOTE | 2018-06-22 12:48 | PT.OTN ---
Current Diagnoses Myositis, unspecified (06/22/18) Physical Therapy Treatment Note PT-OP-A Visit Information Start: 05/02/18 13:13 Freq: Status: Active Protocol: Document 06/22/18 12:00 DCW (Rec: 06/22/18 12:48 DCW [id number]) Out-Patient Physical Therapy Visit Information Visit Information Visit Type Treatment Note Visit Start Time 12:00 Visit Stop Time 12:45 Total Visit Minutes 45 Visit Number 16 Number of ROD BENDING MACHINE OPERATOR Visits 0 Evaluation Information Evaluation Date 05/01/18 PT-OP-B Current Condition Start: 05/02/18 13:13 Freq: Status: Active Protocol: Document 05/01/18 12:45 RCC (Rec: 05/02/18 13:42 RCC [email or web address]) Current Condition History of Current Condition Onset Date 2015 Current Complaints SOB, weakness, unable to ambulate for exercise, pain all over body History of Current Condition Pt is a 73 y/o male presenting to physical therapy with a c/ o weakness, SOB with activity, pain throughout the body and inability to walk outdoors for exercise. 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 He states that initially his weakness and loss of function gradually started in 2015 after his from cancer. Pt admits he would sit for 6-8 hours a day, doing nothing. He has a complex medical history (see below). Pt admits that now he is embarrassed to see what little exercise he can do now but is extremely motivated to get better. He has found a female partner which he would like to be able to walk outdoors on trails with. 2 years ago, he was able to walk about 2.5 miles using walking sticks/poles. Treatment Goals Patient/Caregiver Goals walk outdoors on trails for exercise (walking on pavement increases his arthritic pain). Prior Functional Status Baseline Function- Mobility Modified Independent Baseline Function- Gait modified indep with increased time to travel community distances Baseline Function- Recreation/Hobbies trail walking 2.5 miles with walking sticks (2 yrs ago) Current Functional Impairments (Reported) Functional Limitations- Mobility/Gait fatigue/SOB and increased pain with community ambulation Functional Limitations- Recreation/ unable to perform Hobbies Personal Factors Other Personal Factors That May Effect cardiac history with 2 stents Therapy/Recovery placed, OA, L popliteal artery surgery/reconstruction, h/o prostate CA with radiation (45 sessions), HTN, B MIGUEL, depression since 2016 ( of spouse), multiple back and knee surgeries. PT-OP-C Subjective Start: 05/02/18 13:13 Freq: Status: Active Protocol: Document 06/22/18 12:00 DCW (Rec: 06/22/18 12:48 DCW [id number]) OP-PT Subjective Patient Comments Patient Comments Pt reports he is 80% better following his fall, but notes that his left leg has just felt heavy ever since. PT-OP-E Functional Tests Start: 05/02/18 13:13 Freq: Status: Active Protocol: Document 05/29/18 14:30 RCC (Rec: 05/29/18 15:46 RCC [email or web address]) Functional Tests 6 Minute Walk Test Distance 862 Device Used none PT-OP-G Mobility & Gait Start: 05/02/18 13:13 Freq: Status: Active Protocol: Document 05/29/18 14:30 RCC (Rec: 05/29/18 15:46 RCC [email or web address]) Stair Climbing Evaluation Evaluation Level of Assist On Stairs Independent Devices Stair Climbing Assistive Devices Right Railing Technique/Endurance Stair Climbing Direction Ascend and Descend Stair Climbing Technique Step Over Step Number of Steps Climbed 6 Comments Stair Climbing Comments impaired eccentric control L descending PT-OP-M Strength Start: 05/02/18 13:13 Freq: Status: Active Protocol: Document 05/29/18 14:30 RCC (Rec: 05/29/18 15:46 RCC [email or web address]) Hip Strength Hip Manual Muscle Testing Right Flexion (L2) 4- Good- External Rotation 3 Fair Internal Rotation 4+ Good+ Left Flexion (L2) 4+ Good+ External Rotation 3 Fair Internal Rotation 4+ Good+ Knee Strength Knee Manual Muscle Testing Right Flexion (S2) 4+ Good+ Extension (L3) 5 Normal Left Flexion (S2) 4+ Good+ Extension (L3) 4 Good PT-OP-Q Treatments Start: 05/02/18 13:13 Freq: Status: Active Protocol: Document 06/22/18 12:00 DCW (Rec: 06/22/18 12:48 DCW [id number]) Cardio Equipment Recumbent Stepper (Sci-Fit) Duration (Minutes) 8 Resistance 3 Seat Position 16 Gym Equipment Shuttle Recovery Unilateral Squats Details band around L thigh Resistance 37# Reps/Time x15 each Bilateral Squats Resistance 75# Reps/Time 2x15 Therapeutic Exercises Standing Exercises heel cord stretch Standing Exercise Name heel cord stretch Side bilateral Equipment Used HOLLY Reps/Minutes 2x30 sec HS stretch Standing Exercise Name hamstring stretch Side bilateral Equipment Used stairs Reps/Minutes 2x30 sec Manual Therapy Treatment Soft Tissue Mobilization gluteals and piriformis Mobilization Type Myofascial Release Rolling Intensity/Depth Moderate Body Position Sidelying Comments left lumbar paraspinals and QL Mobilization Type Myofascial Release Rolling Intensity/Depth Moderate Body Position Sidelying Comments bilateral PT-OP-R Modalities Start: 05/02/18 13:13 Freq: Status: Active Protocol: Document 06/09/18 17:13 GGD (Rec: 06/09/18 17:21 GGD [email or web address]) Hot Pack/Cold Pack Treatment Cold Pack Location L/S Patient Position Sitting Treatment Duration (minutes) 10 Patient Tolerance Good PT-OP-T Assessment and Plan Start: 05/02/18 13:13 Freq: Status: Active Protocol: Document 06/22/18 12:00 DCW (Rec: 06/22/18 12:48 DCW [id number]) Physical Therapy Assessment Assessment Summary Assessment Pt tolerated treatment well, although complaining of increased left-sided numbness in his LE. Physical Therapy Plan Frequency and Duration Frequency of Treatment 3x/Week Duration of Treatment 8 weeks Plan of Care Start Date 05/01/18 Plan of Care End Date 06/26/18 Next Visit Focus/Plan Next Note Type Treatment Note Next Visit Plan re-introduce UE and LE strengthening as tolerated ( watch for low back pain), increased back to 10 min Sci- fit
--- NOTE | 2018-06-26 12:50 | PT.OPPOC ---
Current Diagnoses Myositis, unspecified (06/26/18) Provider Visit Care Team Role Provider Type Clement Deleon MD Family Provider Physician Specialty: Cardiology Address: [address] [place] [address] [address], [place], [address] Email: Spike Mojica MD Attending Provider Physician Primary Care Provider Specialty: Family Practice Address: [address] [facility] [place], [address] Email: Plan Of Care PT-OP-T Assessment and Plan Start: 05/02/18 13:13 Freq: Status: Active Protocol: Document 06/26/18 12:50 RCC (Rec: 06/26/18 13:40 RCC [email or web address]) Physical Therapy Assessment Goals 6 minute walk test Impairment 6 MWT- 862 ft Short Term Goal (STG) >1,000 ft with 6 Minute Walk Test to improve exercise tolerance and decrease risk for falls. STG Duration 4 weeks Skilled Nursing Goal (LTG) >1,200 ft with 6 Minute Walk Test to improve exercise tolerance and decrease risk for falls. LTG Duration 8 weeks trail walking Impairment inability to walk on trails due to pain and fatigue Short Term Goal (STG) pt will walk outdoors on trails with bilateral walking sticks for 15 min, 3 days per week. *walking outdoors 1-2 days per week 06/26/18 STG Duration 4 weeks Channel Business Manager Goal (LTG) pt will walk outdoors on trails with bilateral walking sticks for 30 min, 5 days per week as part of an indep. home program for exercise and cardiovascular benefits. LTG Duration 8 weeks LE strength Impairment LE weakness Short Term Goal (STG) 4/5 or greater LE strength with MMT to improve functional mobility and tolerance to stairs in community. *good progress- hip ER still < 4/5 with MMT but improved. STG Duration 4 weeks Channel Business Manager Goal (LTG) 4+/5 or greater LE strength with MMT to improve functional moblity and tolerance to stairs in community. LTG Duration 8 weeks Progress Towards Goals Progress Towards Goals Slow Progress - Other Assessment Summary Assessment Pt had a fall from the elliptical machine during his therapy session on 06/09/2018, which caused increased pain on the L side (LLE) and low back pain. His pain is decreasing per pt report, and his strength has improved since initial evaluation, but his progress has been slowed since his fall and impacted intervention with therapy to progress with a more reserved approach. Pt continues to be motivated to improve, and is demonstrating improvements in strength and his 6 Minute Walk Test required less rest breaks when performed in May of 2018. Pt would benefit from continued physical therapy to progress his HEP and exercises safely and appropriately, and to improve his participation in walking for exercise and improve his functional independence. Physical Therapy Plan Frequency and Duration Frequency of Treatment 3x/Week Duration of Treatment 8 weeks Plan of Care Start Date 06/26/18 Plan of Care End Date 08/21/18 Therapeutic Interventions Therapeutic Interventions Aquatic Therapy Balance Training Gait Training Home Exercise Program Manual Therapy Neuromuscular Re-education Orthotic/Prosthetic Management Patient/Caregiver Education Self-Care/Home Management Taping Therapeutic Activities Therapeutic Exercises Modalities Cold Pack/Ice Massage Electric Stimulation Hot Packs Ultrasound Next Visit Focus/Plan Next Note Type Treatment Note Next Visit Plan continue to progress lower body and core stabilization ( supine core exercises to be initiated next session). Plan of Care Plan of Care Start Date 06/26/18 Plan of Care End Date 08/21/18 Please Sign and Return: I have reviewed this Plan of Care and certify that the skilled therapy services above are required to meet the patient?s needs. Physician Signature Date Printed Name and Credentials Clinical Instructor Signature Printed Name and Credentials
--- NOTE | 2018-06-26 12:50 | PT.OTN ---
Current Diagnoses Myositis, unspecified (06/26/18) Physical Therapy Treatment Note PT-OP-A Visit Information Start: 05/02/18 13:13 Freq: Status: Active Protocol: Document 06/26/18 12:50 RCC (Rec: 06/26/18 13:40 RCC [email or web address]) Out-Patient Physical Therapy Visit Information Visit Information Visit Type Treatment Note Visit Start Time 12:00 Visit Stop Time 12:50 Total Visit Minutes 50 Visit Number 17 Number of DIRECTOR ONLINE MARKETING Visits 0 Evaluation Information Evaluation Date 05/01/18 PT-OP-B Current Condition Start: 05/02/18 13:13 Freq: Status: Active Protocol: Document 05/01/18 12:45 RCC (Rec: 05/02/18 13:42 RCC [email or web address]) Current Condition History of Current Condition Onset Date 2015 Current Complaints SOB, weakness, unable to ambulate for exercise, pain all over body History of Current Condition Pt is a 73 y/o male presenting to physical therapy with a c/ o weakness, SOB with activity, pain throughout the body and inability to walk outdoors for exercise. 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 He states that initially his weakness and loss of function gradually started in 2015 after his from cancer. Pt admits he would sit for 6-8 hours a day, doing nothing. He has a complex medical history (see below). Pt admits that now he is embarrassed to see what little exercise he can do now but is extremely motivated to get better. He has found a female partner which he would like to be able to walk outdoors on trails with. 2 years ago, he was able to walk about 2.5 miles using walking sticks/poles. Treatment Goals Patient/Caregiver Goals walk outdoors on trails for exercise (walking on pavement increases his arthritic pain). Prior Functional Status Baseline Function- Mobility Modified Independent Baseline Function- Gait modified indep with increased time to travel community distances Baseline Function- Recreation/Hobbies trail walking 2.5 miles with walking sticks (2 yrs ago) Current Functional Impairments (Reported) Functional Limitations- Mobility/Gait fatigue/SOB and increased pain with community ambulation Functional Limitations- Recreation/ unable to perform Hobbies Personal Factors Other Personal Factors That May Effect cardiac history with 2 stents Therapy/Recovery placed, OA, L popliteal artery surgery/reconstruction, h/o prostate CA with radiation (45 sessions), HTN, B MIGUEL, depression since 2016 ( of spouse), multiple back and knee surgeries. PT-OP-C Subjective Start: 05/02/18 13:13 Freq: Status: Active Protocol: Document 06/26/18 12:50 RCC (Rec: 06/26/18 13:40 RCC [email or web address]) OP-PT Subjective Patient Comments Patient Comments Pt states he continues to see improvements with his leg strength, but still getting heaviness with his LLE. His back continues to get fatigued after performing standing exercises. Patient Reported Progress Improving PT-OP-E Functional Tests Start: 05/02/18 13:13 Freq: Status: Active Protocol: Document 05/29/18 14:30 RCC (Rec: 05/29/18 15:46 RCC [email or web address]) Functional Tests 6 Minute Walk Test Distance 862 Device Used none PT-OP-G Mobility & Gait Start: 05/02/18 13:13 Freq: Status: Active Protocol: Document 05/29/18 14:30 RCC (Rec: 05/29/18 15:46 RCC [email or web address]) Stair Climbing Evaluation Evaluation Level of Assist On Stairs Independent Devices Stair Climbing Assistive Devices Right Railing Technique/Endurance Stair Climbing Direction Ascend and Descend Stair Climbing Technique Step Over Step Number of Steps Climbed 6 Comments Stair Climbing Comments impaired eccentric control L descending PT-OP-M Strength Start: 05/02/18 13:13 Freq: Status: Active Protocol: Document 06/26/18 12:50 RCC (Rec: 06/26/18 13:40 RCC [email or web address]) Hip Strength Hip Manual Muscle Testing Right Flexion (L2) 4 Good External Rotation 3+ Fair+ Internal Rotation 4+ Good+ Left Flexion (L2) 4+ Good+ External Rotation 3+ Fair+ Internal Rotation 4+ Good+ Knee Strength Knee Manual Muscle Testing Right Flexion (S2) 4+ Good+ Extension (L3) 5 Normal Left Flexion (S2) 4+ Good+ Extension (L3) 4+ Good+ Ankle/Foot Strength Ankle and Foot Manual Muscle Testing Right Dorsiflexion (L4) 4+ Good+ Left Dorsiflexion (L4) 4+ Good+ PT-OP-Q Treatments Start: 05/02/18 13:13 Freq: Status: Active Protocol: Document 06/26/18 12:50 RCC (Rec: 06/26/18 13:40 RCC [email or web address]) Cardio Equipment Recumbent Stepper (Sci-Fit) Duration (Minutes) 10 Resistance 1 Seat Position 16 Gym Equipment Cable Column (Body Solid) Rows Resistance 40# Reps/Time 2x15 Lat Pull Down Resistance 40# Reps/Time 2x15 Shuttle Recovery Unilateral Squats Resistance 37# Reps/Time x15 each Bilateral Squats Resistance 75# Reps/Time 2x15 Therapeutic Exercises Standing Exercises triceps extension Side bilateral Resistance L4 Reps/Minutes 2x10 heel cord stretch Standing Exercise Name heel cord stretch Side bilateral Equipment Used HOLLY Reps/Minutes 2x30 sec HS stretch Standing Exercise Name hamstring stretch Side bilateral Equipment Used stairs Reps/Minutes 2x30 sec resisted walking Standing Exercise Name lateral, forward, backward Side bilateral Resistance L2 band Reps/Minutes 3 laps each PT-OP-R Modalities Start: 05/02/18 13:13 Freq: Status: Active Protocol: Document 06/09/18 17:13 GGD (Rec: 06/09/18 17:21 GGD [email or web address]) Hot Pack/Cold Pack Treatment Cold Pack Location L/S Patient Position Sitting Treatment Duration (minutes) 10 Patient Tolerance Good PT-OP-T Assessment and Plan Start: 05/02/18 13:13 Freq: Status: Active Protocol: Document 06/26/18 12:50 RCC (Rec: 06/26/18 13:40 RCC [email or web address]) Physical Therapy Assessment Goals 6 minute walk test Impairment 6 MWT- 862 ft Short Term Goal (STG) >1,000 ft with 6 Minute Walk Test to improve exercise tolerance and decrease risk for falls. STG Duration 4 weeks Usp Goal (LTG) >1,200 ft with 6 Minute Walk Test to improve exercise tolerance and decrease risk for falls. LTG Duration 8 weeks trail walking Impairment inability to walk on trails due to pain and fatigue Short Term Goal (STG) pt will walk outdoors on trails with bilateral walking sticks for 15 min, 3 days per week. *walking outdoors 1-2 days per week 06/26/18 STG Duration 4 weeks Usp Goal (LTG) pt will walk outdoors on trails with bilateral walking sticks for 30 min, 5 days per week as part of an indep. home program for exercise and cardiovascular benefits. LTG Duration 8 weeks LE strength Impairment LE weakness Short Term Goal (STG) 4/5 or greater LE strength with MMT to improve functional mobility and tolerance to stairs in community. *good progress- hip ER still < 4/5 with MMT but improved. STG Duration 4 weeks Usp Goal (LTG) 4+/5 or greater LE strength with MMT to improve functional moblity and tolerance to stairs in community. LTG Duration 8 weeks Progress Towards Goals Progress Towards Goals Slow Progress - Other Assessment Summary Assessment Pt had a fall from the elliptical machine during his therapy session on 06/09/2018, which caused increased pain on the L side (LLE) and low back pain. His pain is decreasing per pt report, and his strength has improved since initial evaluation, but his progress has been slowed since his fall and impacted intervention with therapy to progress with a more reserved approach. Pt continues to be motivated to improve, and is demonstrating improvements in strength and his 6 Minute Walk Test required less rest breaks when performed in May of 2018. Pt would benefit from continued physical therapy to progress his HEP and exercises safely and appropriately, and to improve his participation in walking for exercise and improve his functional independence. Physical Therapy Plan Frequency and Duration Frequency of Treatment 3x/Week Duration of Treatment 8 weeks Plan of Care Start Date 06/26/18 Plan of Care End Date 08/21/18 Therapeutic Interventions Therapeutic Interventions Aquatic Therapy Balance Training Gait Training Home Exercise Program Manual Therapy Neuromuscular Re-education Orthotic/Prosthetic Management Patient/Caregiver Education Self-Care/Home Management Taping Therapeutic Activities Therapeutic Exercises Modalities Cold Pack/Ice Massage Electric Stimulation Hot Packs Ultrasound Next Visit Focus/Plan Next Note Type Treatment Note Next Visit Plan continue to progress lower body and core stabilization ( supine core exercises to be initiated next session).
--- NOTE | 2018-06-30 14:13 | PT.OTN ---
Current Diagnoses Myositis, unspecified (06/30/18) Physical Therapy Treatment Note PT-OP-A Visit Information Start: 05/02/18 13:13 Freq: Status: Active Protocol: Document 06/30/18 12:00 DCW (Rec: 06/30/18 14:13 DCW [id number]) Out-Patient Physical Therapy Visit Information Visit Information Visit Type Treatment Note Visit Start Time 12:00 Visit Stop Time 12:45 Total Visit Minutes 45 Visit Number 18 Number of ENVIRONMENTAL PROTECTION GEOLOGIST Visits 0 Evaluation Information Evaluation Date 05/01/18 PT-OP-B Current Condition Start: 05/02/18 13:13 Freq: Status: Active Protocol: Document 05/01/18 12:45 RCC (Rec: 05/02/18 13:42 RCC [email or web address]) Current Condition History of Current Condition Onset Date 2015 Current Complaints SOB, weakness, unable to ambulate for exercise, pain all over body History of Current Condition Pt is a 73 y/o male presenting to physical therapy with a c/ o weakness, SOB with activity, pain throughout the body and inability to walk outdoors for exercise. 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 He states that initially his weakness and loss of function gradually started in 2015 after his from cancer. Pt admits he would sit for 6-8 hours a day, doing nothing. He has a complex medical history (see below). Pt admits that now he is embarrassed to see what little exercise he can do now but is extremely motivated to get better. He has found a female partner which he would like to be able to walk outdoors on trails with. 2 years ago, he was able to walk about 2.5 miles using walking sticks/poles. Treatment Goals Patient/Caregiver Goals walk outdoors on trails for exercise (walking on pavement increases his arthritic pain). Prior Functional Status Baseline Function- Mobility Modified Independent Baseline Function- Gait modified indep with increased time to travel community distances Baseline Function- Recreation/Hobbies trail walking 2.5 miles with walking sticks (2 yrs ago) Current Functional Impairments (Reported) Functional Limitations- Mobility/Gait fatigue/SOB and increased pain with community ambulation Functional Limitations- Recreation/ unable to perform Hobbies Personal Factors Other Personal Factors That May Effect cardiac history with 2 stents Therapy/Recovery placed, OA, L popliteal artery surgery/reconstruction, h/o prostate CA with radiation (45 sessions), HTN, B MIGUEL, depression since 2016 ( of spouse), multiple back and knee surgeries. PT-OP-C Subjective Start: 05/02/18 13:13 Freq: Status: Active Protocol: Document 06/30/18 12:00 DCW (Rec: 06/30/18 14:13 DCW [id number]) OP-PT Subjective Patient Comments Patient Comments I think that I'm finally back to where I was before my fall . PT-OP-E Functional Tests Start: 05/02/18 13:13 Freq: Status: Active Protocol: Document 05/29/18 14:30 RCC (Rec: 05/29/18 15:46 RCC [email or web address]) Functional Tests 6 Minute Walk Test Distance 862 Device Used none PT-OP-G Mobility & Gait Start: 05/02/18 13:13 Freq: Status: Active Protocol: Document 05/29/18 14:30 RCC (Rec: 05/29/18 15:46 RCC [email or web address]) Stair Climbing Evaluation Evaluation Level of Assist On Stairs Independent Devices Stair Climbing Assistive Devices Right Railing Technique/Endurance Stair Climbing Direction Ascend and Descend Stair Climbing Technique Step Over Step Number of Steps Climbed 6 Comments Stair Climbing Comments impaired eccentric control L descending PT-OP-M Strength Start: 05/02/18 13:13 Freq: Status: Active Protocol: Document 06/26/18 12:50 RCC (Rec: 06/26/18 13:40 RCC [email or web address]) Hip Strength Hip Manual Muscle Testing Right Flexion (L2) 4 Good External Rotation 3+ Fair+ Internal Rotation 4+ Good+ Left Flexion (L2) 4+ Good+ External Rotation 3+ Fair+ Internal Rotation 4+ Good+ Knee Strength Knee Manual Muscle Testing Right Flexion (S2) 4+ Good+ Extension (L3) 5 Normal Left Flexion (S2) 4+ Good+ Extension (L3) 4+ Good+ Ankle/Foot Strength Ankle and Foot Manual Muscle Testing Right Dorsiflexion (L4) 4+ Good+ Left Dorsiflexion (L4) 4+ Good+ PT-OP-Q Treatments Start: 05/02/18 13:13 Freq: Status: Active Protocol: Document 06/30/18 12:00 DCW (Rec: 06/30/18 14:13 DCW [id number]) Cardio Equipment Recumbent Stepper (Sci-Fit) Duration (Minutes) 9 Resistance 3 Seat Position 16 Gym Equipment Cable Column (Body Solid) Rows Resistance 40# Reps/Time 2x15 Lat Pull Down Resistance 40# Reps/Time 2x15 Shuttle Recovery Unilateral Squats Resistance 37# Reps/Time x15 each Bilateral Squats Resistance 75# Reps/Time 2x15 Therapeutic Exercises Standing Exercises heel cord stretch Standing Exercise Name heel cord stretch Side bilateral Equipment Used HOLLY Reps/Minutes 2x30 sec HS stretch Standing Exercise Name hamstring stretch Side bilateral Equipment Used stairs Reps/Minutes 2x30 sec resisted walking Standing Exercise Name lateral Side bilateral Resistance Green Equipment Used T-band Reps/Minutes 3 laps each Other Exercises Hurdles/Foam Other Exercise Name Hurdles/Foam Comments Staggered, Tandem, Side- stepping Neuro Re-Education Treatment Balance Activities 1 Details Romberg Stance Comments Eyes open/closed PT-OP-R Modalities Start: 05/02/18 13:13 Freq: Status: Active Protocol: Document 06/09/18 17:13 GGD (Rec: 06/09/18 17:21 GGD [email or web address]) Hot Pack/Cold Pack Treatment Cold Pack Location L/S Patient Position Sitting Treatment Duration (minutes) 10 Patient Tolerance Good PT-OP-T Assessment and Plan Start: 05/02/18 13:13 Freq: Status: Active Protocol: Document 06/30/18 12:00 DCW (Rec: 06/30/18 14:13 DCW [id number]) Physical Therapy Assessment Assessment Summary Assessment Pt noticing small improvement in LE strength, which has helped increase some stability and activity tolerance, although pt continues to desplay quick fatigue and LE weakness Physical Therapy Plan Frequency and Duration Frequency of Treatment 3x/Week Duration of Treatment 8 weeks Plan of Care Start Date 06/26/18 Plan of Care End Date 08/21/18 Therapeutic Interventions Therapeutic Interventions Aquatic Therapy Balance Training Gait Training Home Exercise Program Manual Therapy Neuromuscular Re-education Orthotic/Prosthetic Management Patient/Caregiver Education Self-Care/Home Management Taping Therapeutic Activities Therapeutic Exercises Modalities Cold Pack/Ice Massage Electric Stimulation Hot Packs Ultrasound Next Visit Focus/Plan Next Note Type Treatment Note Next Visit Plan continue to progress lower body and core stabilization ( supine core exercises to be initiated next session).
--- NOTE | 2018-07-03 12:50 | PT.OTN ---
Current Diagnoses Myositis, unspecified (07/03/18) Physical Therapy Treatment Note PT-OP-A Visit Information Start: 05/02/18 13:13 Freq: Status: Active Protocol: Document 07/03/18 12:50 RCC (Rec: 07/03/18 13:39 RCC [email or web address]) Out-Patient Physical Therapy Visit Information Visit Information Visit Type Treatment Note Visit Start Time 12:06 Visit Stop Time 12:50 Total Visit Minutes 44 Visit Number 19 Number of SMALL ARMS REPAIRER Visits 0 Evaluation Information Evaluation Date 05/01/18 PT-OP-B Current Condition Start: 05/02/18 13:13 Freq: Status: Active Protocol: Document 05/01/18 12:45 RCC (Rec: 05/02/18 13:42 RCC [email or web address]) Current Condition History of Current Condition Onset Date 2015 Current Complaints SOB, weakness, unable to ambulate for exercise, pain all over body History of Current Condition Pt is a 73 y/o male presenting to physical therapy with a c/ o weakness, SOB with activity, pain throughout the body and inability to walk outdoors for exercise. 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 He states that initially his weakness and loss of function gradually started in 2015 after his from cancer. Pt admits he would sit for 6-8 hours a day, doing nothing. He has a complex medical history (see below). Pt admits that now he is embarrassed to see what little exercise he can do now but is extremely motivated to get better. He has found a female partner which he would like to be able to walk outdoors on trails with. 2 years ago, he was able to walk about 2.5 miles using walking sticks/poles. Treatment Goals Patient/Caregiver Goals walk outdoors on trails for exercise (walking on pavement increases his arthritic pain). Prior Functional Status Baseline Function- Mobility Modified Independent Baseline Function- Gait modified indep with increased time to travel community distances Baseline Function- Recreation/Hobbies trail walking 2.5 miles with walking sticks (2 yrs ago) Current Functional Impairments (Reported) Functional Limitations- Mobility/Gait fatigue/SOB and increased pain with community ambulation Functional Limitations- Recreation/ unable to perform Hobbies Personal Factors Other Personal Factors That May Effect cardiac history with 2 stents Therapy/Recovery placed, OA, L popliteal artery surgery/reconstruction, h/o prostate CA with radiation (45 sessions), HTN, B MIGUEL, depression since 2016 ( of spouse), multiple back and knee surgeries. PT-OP-C Subjective Start: 05/02/18 13:13 Freq: Status: Active Protocol: Document 07/03/18 12:50 RCC (Rec: 07/03/18 13:39 RCC [email or web address]) OP-PT Subjective Patient Comments Patient Comments Pt feeling like his knees are more stable, but still has difficulty getting out of low seats. PT-OP-E Functional Tests Start: 05/02/18 13:13 Freq: Status: Active Protocol: Document 05/29/18 14:30 RCC (Rec: 05/29/18 15:46 RCC [email or web address]) Functional Tests 6 Minute Walk Test Distance 862 Device Used none PT-OP-G Mobility & Gait Start: 05/02/18 13:13 Freq: Status: Active Protocol: Document 05/29/18 14:30 RCC (Rec: 05/29/18 15:46 RCC [email or web address]) Stair Climbing Evaluation Evaluation Level of Assist On Stairs Independent Devices Stair Climbing Assistive Devices Right Railing Technique/Endurance Stair Climbing Direction Ascend and Descend Stair Climbing Technique Step Over Step Number of Steps Climbed 6 Comments Stair Climbing Comments impaired eccentric control L descending PT-OP-M Strength Start: 05/02/18 13:13 Freq: Status: Active Protocol: Document 06/26/18 12:50 RCC (Rec: 06/26/18 13:40 RCC [email or web address]) Hip Strength Hip Manual Muscle Testing Right Flexion (L2) 4 Good External Rotation 3+ Fair+ Internal Rotation 4+ Good+ Left Flexion (L2) 4+ Good+ External Rotation 3+ Fair+ Internal Rotation 4+ Good+ Knee Strength Knee Manual Muscle Testing Right Flexion (S2) 4+ Good+ Extension (L3) 5 Normal Left Flexion (S2) 4+ Good+ Extension (L3) 4+ Good+ Ankle/Foot Strength Ankle and Foot Manual Muscle Testing Right Dorsiflexion (L4) 4+ Good+ Left Dorsiflexion (L4) 4+ Good+ PT-OP-Q Treatments Start: 05/02/18 13:13 Freq: Status: Active Protocol: Document 07/03/18 12:50 RCC (Rec: 07/03/18 13:39 RCC [email or web address]) Cardio Equipment Recumbent Stepper (Sci-Fit) Duration (Minutes) 10 Resistance 3 Seat Position 16 Other 1.61 distance Gym Equipment Cable Column (Body Solid) Rows Resistance 40# Reps/Time 2x15 Lat Pull Down Resistance 40# Reps/Time 2x15 Therapeutic Ball LTR Ball Size/Color 65 cm Body Position Supine Reps/Duration 1x10 each side reverse leg press Exercise Details bilateral Ball Size/Color 65 cm Body Position Supine Reps/Duration 1x10 Comments L2 band around feet knee and hip flex/extension Exercise Details bilateral Ball Size/Color 65 cm Body Position Supine Reps/Duration 1x15 Therapeutic Exercises Supine Exercises hip flexor stretch Supine Exercise Name psoas and rectus femoris stretch Side bilateral Reps/Minutes 1 each Comments LE off EOB Standing Exercises heel cord stretch Standing Exercise Name heel cord stretch Side bilateral Equipment Used HOLLY Reps/Minutes 2x30 sec HS stretch Standing Exercise Name hamstring stretch Side bilateral Equipment Used stairs Reps/Minutes 2x30 sec Therapeutic Activity Therapeutic Activity STS training Name sit to stand training Reps/Minutes 9 min Comments discussion, demonstration and performance of sit<->stand from chair- alignment, progression of exercises in clinic to advance PT-OP-R Modalities Start: 05/02/18 13:13 Freq: Status: Active Protocol: Document 06/09/18 17:13 GGD (Rec: 06/09/18 17:21 GGD [email or web address]) Hot Pack/Cold Pack Treatment Cold Pack Location L/S Patient Position Sitting Treatment Duration (minutes) 10 Patient Tolerance Good PT-OP-T Assessment and Plan Start: 05/02/18 13:13 Freq: Status: Active Protocol: Document 07/03/18 12:50 RCC (Rec: 07/03/18 13:39 RCC [email or web address]) Physical Therapy Assessment Assessment Summary Assessment Pt with (+) crepitus bilateral knees with sit<->stand from standard chair, requires UE assistance to perform. Pt with fatigue with initiating core stability training, but no c/o low back pain. Physical Therapy Plan Frequency and Duration Frequency of Treatment 3x/Week Duration of Treatment 8 weeks Plan of Care Start Date 06/26/18 Plan of Care End Date 08/21/18 Next Visit Focus/Plan Next Note Type Treatment Note Next Visit Plan advance knee and hip strengthening, balance and core.
--- NOTE | 2018-07-07 16:00 | PT.OTN ---
Current Diagnoses Myositis, unspecified (07/07/18) Physical Therapy Treatment Note PT-OP-A Visit Information Start: 05/02/18 13:13 Freq: Status: Active Protocol: Document 07/07/18 12:00 GGD (Rec: 07/07/18 16:00 GGD [email or web address]) Out-Patient Physical Therapy Visit Information Visit Information Visit Type Treatment Note Visit Start Time 12:00 Visit Stop Time 12:42 Total Visit Minutes 42 Visit Number 20 Number of DISEASE EDUCATION SPECIALIST Visits 1 Evaluation Information Evaluation Date 05/01/18 PT-OP-B Current Condition Start: 05/02/18 13:13 Freq: Status: Active Protocol: Document 05/01/18 12:45 RCC (Rec: 05/02/18 13:42 RCC [email or web address]) Current Condition History of Current Condition Onset Date 2015 Current Complaints SOB, weakness, unable to ambulate for exercise, pain all over body History of Current Condition Pt is a 73 y/o male presenting to physical therapy with a c/ o weakness, SOB with activity, pain throughout the body and inability to walk outdoors for exercise. 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 He states that initially his weakness and loss of function gradually started in 2015 after his from cancer. Pt admits he would sit for 6-8 hours a day, doing nothing. He has a complex medical history (see below). Pt admits that now he is embarrassed to see what little exercise he can do now but is extremely motivated to get better. He has found a female partner which he would like to be able to walk outdoors on trails with. 2 years ago, he was able to walk about 2.5 miles using walking sticks/poles. Treatment Goals Patient/Caregiver Goals walk outdoors on trails for exercise (walking on pavement increases his arthritic pain). Prior Functional Status Baseline Function- Mobility Modified Independent Baseline Function- Gait modified indep with increased time to travel community distances Baseline Function- Recreation/Hobbies trail walking 2.5 miles with walking sticks (2 yrs ago) Current Functional Impairments (Reported) Functional Limitations- Mobility/Gait fatigue/SOB and increased pain with community ambulation Functional Limitations- Recreation/ unable to perform Hobbies Personal Factors Other Personal Factors That May Effect cardiac history with 2 stents Therapy/Recovery placed, OA, L popliteal artery surgery/reconstruction, h/o prostate CA with radiation (45 sessions), HTN, B MIGUEL, depression since 2016 ( of spouse), multiple back and knee surgeries. PT-OP-C Subjective Start: 05/02/18 13:13 Freq: Status: Active Protocol: Document 07/07/18 12:00 GGD (Rec: 07/07/18 16:00 GGD [email or web address]) OP-PT Subjective Patient Comments Patient Comments Pt states he is a little sore after doing some work in the garage. PT-OP-E Functional Tests Start: 05/02/18 13:13 Freq: Status: Active Protocol: Document 05/29/18 14:30 RCC (Rec: 05/29/18 15:46 RCC [email or web address]) Functional Tests 6 Minute Walk Test Distance 862 Device Used none PT-OP-G Mobility & Gait Start: 05/02/18 13:13 Freq: Status: Active Protocol: Document 05/29/18 14:30 RCC (Rec: 05/29/18 15:46 RCC [email or web address]) Stair Climbing Evaluation Evaluation Level of Assist On Stairs Independent Devices Stair Climbing Assistive Devices Right Railing Technique/Endurance Stair Climbing Direction Ascend and Descend Stair Climbing Technique Step Over Step Number of Steps Climbed 6 Comments Stair Climbing Comments impaired eccentric control L descending PT-OP-M Strength Start: 05/02/18 13:13 Freq: Status: Active Protocol: Document 06/26/18 12:50 RCC (Rec: 06/26/18 13:40 RCC [email or web address]) Hip Strength Hip Manual Muscle Testing Right Flexion (L2) 4 Good External Rotation 3+ Fair+ Internal Rotation 4+ Good+ Left Flexion (L2) 4+ Good+ External Rotation 3+ Fair+ Internal Rotation 4+ Good+ Knee Strength Knee Manual Muscle Testing Right Flexion (S2) 4+ Good+ Extension (L3) 5 Normal Left Flexion (S2) 4+ Good+ Extension (L3) 4+ Good+ Ankle/Foot Strength Ankle and Foot Manual Muscle Testing Right Dorsiflexion (L4) 4+ Good+ Left Dorsiflexion (L4) 4+ Good+ PT-OP-Q Treatments Start: 05/02/18 13:13 Freq: Status: Active Protocol: Document 07/07/18 12:00 GGD (Rec: 07/07/18 16:00 GGD [email or web address]) Cardio Equipment Recumbent Stepper (Sci-Fit) Duration (Minutes) 10 Resistance 3 Seat Position 16 Other 1.61 distance Gym Equipment Cable Column (Body Solid) Rows Resistance 40# Reps/Time 2x15 Lat Pull Down Resistance 40# Reps/Time 2x15 Therapeutic Ball LTR Ball Size/Color 65 cm Body Position Supine Reps/Duration 1x10 each side reverse leg press Exercise Details bilateral Ball Size/Color 65 cm Body Position Supine Reps/Duration 1x10 Comments L2 band around feet knee and hip flex/extension Exercise Details bilateral Ball Size/Color 65 cm Body Position Supine Reps/Duration 1x15 Therapeutic Exercises Supine Exercises hip er/abd Resistance L 2 Equipment Used thera band Reps/Minutes 15 x hip flexor stretch Supine Exercise Name psoas and rectus femoris stretch Side bilateral Reps/Minutes 1 each Comments LE off EOB Standing Exercises heel cord stretch Standing Exercise Name heel cord stretch Side bilateral Equipment Used HOLLY Reps/Minutes 2x30 sec HS stretch Standing Exercise Name hamstring stretch Side bilateral Equipment Used stairs Reps/Minutes 2x30 sec PT-OP-R Modalities Start: 05/02/18 13:13 Freq: Status: Active Protocol: Document 06/09/18 17:13 GGD (Rec: 06/09/18 17:21 GGD [email or web address]) Hot Pack/Cold Pack Treatment Cold Pack Location L/S Patient Position Sitting Treatment Duration (minutes) 10 Patient Tolerance Good PT-OP-T Assessment and Plan Start: 05/02/18 13:13 Freq: Status: Active Protocol: Document 07/07/18 12:00 GGD (Rec: 07/07/18 16:00 GGD [email or web address]) Physical Therapy Assessment Goals 6 minute walk test Impairment 6 MWT- 862 ft Short Term Goal (STG) >1,000 ft with 6 Minute Walk Test to improve exercise tolerance and decrease risk for falls. STG Duration 4 weeks Spanisher Goal (LTG) >1,200 ft with 6 Minute Walk Test to improve exercise tolerance and decrease risk for falls. LTG Duration 8 weeks trail walking Impairment inability to walk on trails due to pain and fatigue Short Term Goal (STG) pt will walk outdoors on trails with bilateral walking sticks for 15 min, 3 days per week. *walking outdoors 1-2 days per week 06/26/18 STG Duration 4 weeks Senior Care Goal (LTG) pt will walk outdoors on trails with bilateral walking sticks for 30 min, 5 days per week as part of an indep. home program for exercise and cardiovascular benefits. LTG Duration 8 weeks LE strength Impairment LE weakness Short Term Goal (STG) 4/5 or greater LE strength with MMT to improve functional mobility and tolerance to stairs in community. *good progress- hip ER still < 4/5 with MMT but improved. STG Duration 4 weeks Senior Care Goal (LTG) 4+/5 or greater LE strength with MMT to improve functional moblity and tolerance to stairs in community. LTG Duration 8 weeks Assessment Summary Assessment Pt had increase in hamstring pain with balance exercises. He also needed increase in rest breaks during treatment, due to C/O fatigue. Physical Therapy Plan Frequency and Duration Frequency of Treatment 3x/Week Duration of Treatment 8 weeks Plan of Care Start Date 06/26/18 Plan of Care End Date 08/21/18 Next Visit Focus/Plan Next Note Type Treatment Note Next Visit Plan advance knee and hip strengthening, balance and core.
--- NOTE | 2018-07-10 12:50 | PT.OTN ---
Current Diagnoses Myositis, unspecified (07/10/18) Physical Therapy Treatment Note PT-OP-A Visit Information Start: 05/02/18 13:13 Freq: Status: Active Protocol: Document 07/10/18 12:50 RCC (Rec: 07/10/18 13:38 RCC [email or web address]) Out-Patient Physical Therapy Visit Information Visit Information Visit Type Treatment Note Visit Start Time 12:05 Visit Stop Time 12:50 Total Visit Minutes 45 Visit Number 21 Number of FUR FLOOR WORKER Visits 0 Evaluation Information Evaluation Date 05/01/18 PT-OP-B Current Condition Start: 05/02/18 13:13 Freq: Status: Active Protocol: Document 05/01/18 12:45 RCC (Rec: 05/02/18 13:42 RCC [email or web address]) Current Condition History of Current Condition Onset Date 2015 Current Complaints SOB, weakness, unable to ambulate for exercise, pain all over body History of Current Condition Pt is a 73 y/o male presenting to physical therapy with a c/ o weakness, SOB with activity, pain throughout the body and inability to walk outdoors for exercise. 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 He states that initially his weakness and loss of function gradually started in 2015 after his from cancer. Pt admits he would sit for 6-8 hours a day, doing nothing. He has a complex medical history (see below). Pt admits that now he is embarrassed to see what little exercise he can do now but is extremely motivated to get better. He has found a female partner which he would like to be able to walk outdoors on trails with. 2 years ago, he was able to walk about 2.5 miles using walking sticks/poles. Treatment Goals Patient/Caregiver Goals walk outdoors on trails for exercise (walking on pavement increases his arthritic pain). Prior Functional Status Baseline Function- Mobility Modified Independent Baseline Function- Gait modified indep with increased time to travel community distances Baseline Function- Recreation/Hobbies trail walking 2.5 miles with walking sticks (2 yrs ago) Current Functional Impairments (Reported) Functional Limitations- Mobility/Gait fatigue/SOB and increased pain with community ambulation Functional Limitations- Recreation/ unable to perform Hobbies Personal Factors Other Personal Factors That May Effect cardiac history with 2 stents Therapy/Recovery placed, OA, L popliteal artery surgery/reconstruction, h/o prostate CA with radiation (45 sessions), HTN, B MIGUEL, depression since 2016 ( of spouse), multiple back and knee surgeries. PT-OP-C Subjective Start: 05/02/18 13:13 Freq: Status: Active Protocol: Document 07/10/18 12:50 RCC (Rec: 07/10/18 13:38 RCC [email or web address]) OP-PT Subjective Patient Comments Patient Comments Pt reports his back is sore today after standing a lot at a lunch meeting. PT-OP-E Functional Tests Start: 05/02/18 13:13 Freq: Status: Active Protocol: Document 05/29/18 14:30 RCC (Rec: 05/29/18 15:46 RCC [email or web address]) Functional Tests 6 Minute Walk Test Distance 862 Device Used none PT-OP-G Mobility & Gait Start: 05/02/18 13:13 Freq: Status: Active Protocol: Document 05/29/18 14:30 RCC (Rec: 05/29/18 15:46 RCC [email or web address]) Stair Climbing Evaluation Evaluation Level of Assist On Stairs Independent Devices Stair Climbing Assistive Devices Right Railing Technique/Endurance Stair Climbing Direction Ascend and Descend Stair Climbing Technique Step Over Step Number of Steps Climbed 6 Comments Stair Climbing Comments impaired eccentric control L descending PT-OP-M Strength Start: 05/02/18 13:13 Freq: Status: Active Protocol: Document 06/26/18 12:50 RCC (Rec: 06/26/18 13:40 RCC [email or web address]) Hip Strength Hip Manual Muscle Testing Right Flexion (L2) 4 Good External Rotation 3+ Fair+ Internal Rotation 4+ Good+ Left Flexion (L2) 4+ Good+ External Rotation 3+ Fair+ Internal Rotation 4+ Good+ Knee Strength Knee Manual Muscle Testing Right Flexion (S2) 4+ Good+ Extension (L3) 5 Normal Left Flexion (S2) 4+ Good+ Extension (L3) 4+ Good+ Ankle/Foot Strength Ankle and Foot Manual Muscle Testing Right Dorsiflexion (L4) 4+ Good+ Left Dorsiflexion (L4) 4+ Good+ PT-OP-Q Treatments Start: 05/02/18 13:13 Freq: Status: Active Protocol: Document 07/10/18 12:50 RCC (Rec: 07/10/18 13:38 RCC [email or web address]) Cardio Equipment Recumbent Stepper (Sci-Fit) Duration (Minutes) 10 Resistance 4 Seat Position 16 Other 1.71 distance Gym Equipment Cable Column (Body Solid) Rows Resistance 40# Reps/Time 2x15 Lat Pull Down Resistance 40# Reps/Time 2x15 Shuttle Recovery Unilateral Squats Resistance 50# Reps/Time x12 each Bilateral Squats Resistance 75# Reps/Time 2x15 Therapeutic Exercises Standing Exercises heel cord stretch Standing Exercise Name heel cord stretch Side bilateral Equipment Used HOLLY Reps/Minutes 2x30 sec HS stretch Standing Exercise Name hamstring stretch Side bilateral Equipment Used stairs Reps/Minutes 2x30 sec Manual Therapy Treatment Soft Tissue Mobilization lumbar paraspinals and QL Mobilization Type Myofascial Release Rolling Intensity/Depth Moderate Body Position Sidelying Comments bilateral Neuro Re-Education Treatment Balance Activities SLS Details SLS- bilateral Surface firm PT-OP-R Modalities Start: 05/02/18 13:13 Freq: Status: Active Protocol: Document 06/09/18 17:13 GGD (Rec: 06/09/18 17:21 GGD [email or web address]) Hot Pack/Cold Pack Treatment Cold Pack Location L/S Patient Position Sitting Treatment Duration (minutes) 10 Patient Tolerance Good PT-OP-T Assessment and Plan Start: 05/02/18 13:13 Freq: Status: Active Protocol: Document 07/10/18 12:50 RCC (Rec: 07/10/18 13:38 RCC [email or web address]) Physical Therapy Assessment Assessment Summary Assessment L>R tone noted in the QL and lumbar paraspinals today, likely due to increased standing resulting in fatigue and poor standing posture. Pt did increase his distance with Sci-fit 0.10 miles, with increased resistance as well. Physical Therapy Plan Frequency and Duration Frequency of Treatment 3x/Week Duration of Treatment 8 weeks Plan of Care Start Date 06/26/18 Plan of Care End Date 08/21/18 Next Visit Focus/Plan Next Note Type Treatment Note Next Visit Plan SLS, tilt-board with progression to Shuttle Balance . Core stabilization
--- NOTE | 2018-07-14 14:40 | PT.OTN ---
Current Diagnoses Myositis, unspecified (07/14/18) Physical Therapy Treatment Note PT-OP-A Visit Information Start: 05/02/18 13:13 Freq: Status: Active Protocol: Document 07/14/18 14:35 GGD (Rec: 07/14/18 14:40 GGD [email or web address]) Out-Patient Physical Therapy Visit Information Visit Information Visit Type Treatment Note Visit Start Time 12:00 Visit Stop Time 12:45 Total Visit Minutes 45 Visit Number 22 Number of DEICER KIT ASSEMBLER Visits 1 Evaluation Information Evaluation Date 05/01/18 PT-OP-B Current Condition Start: 05/02/18 13:13 Freq: Status: Active Protocol: Document 05/01/18 12:45 RCC (Rec: 05/02/18 13:42 RCC [email or web address]) Current Condition History of Current Condition Onset Date 2015 Current Complaints SOB, weakness, unable to ambulate for exercise, pain all over body History of Current Condition Pt is a 73 y/o male presenting to physical therapy with a c/ o weakness, SOB with activity, pain throughout the body and inability to walk outdoors for exercise. 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 He states that initially his weakness and loss of function gradually started in 2015 after his from cancer. Pt admits he would sit for 6-8 hours a day, doing nothing. He has a complex medical history (see below). Pt admits that now he is embarrassed to see what little exercise he can do now but is extremely motivated to get better. He has found a female partner which he would like to be able to walk outdoors on trails with. 2 years ago, he was able to walk about 2.5 miles using walking sticks/poles. Treatment Goals Patient/Caregiver Goals walk outdoors on trails for exercise (walking on pavement increases his arthritic pain). Prior Functional Status Baseline Function- Mobility Modified Independent Baseline Function- Gait modified indep with increased time to travel community distances Baseline Function- Recreation/Hobbies trail walking 2.5 miles with walking sticks (2 yrs ago) Current Functional Impairments (Reported) Functional Limitations- Mobility/Gait fatigue/SOB and increased pain with community ambulation Functional Limitations- Recreation/ unable to perform Hobbies Personal Factors Other Personal Factors That May Effect cardiac history with 2 stents Therapy/Recovery placed, OA, L popliteal artery surgery/reconstruction, h/o prostate CA with radiation (45 sessions), HTN, B MIGUEL, depression since 2016 ( of spouse), multiple back and knee surgeries. PT-OP-C Subjective Start: 05/02/18 13:13 Freq: Status: Active Protocol: Document 07/14/18 14:35 GGD (Rec: 07/14/18 14:40 GGD [email or web address]) OP-PT Subjective Patient Comments Patient Comments PT state he could feel the increase in the steeper after last visit. PT-OP-E Functional Tests Start: 05/02/18 13:13 Freq: Status: Active Protocol: Document 05/29/18 14:30 RCC (Rec: 05/29/18 15:46 RCC [email or web address]) Functional Tests 6 Minute Walk Test Distance 862 Device Used none PT-OP-G Mobility & Gait Start: 05/02/18 13:13 Freq: Status: Active Protocol: Document 05/29/18 14:30 RCC (Rec: 05/29/18 15:46 RCC [email or web address]) Stair Climbing Evaluation Evaluation Level of Assist On Stairs Independent Devices Stair Climbing Assistive Devices Right Railing Technique/Endurance Stair Climbing Direction Ascend and Descend Stair Climbing Technique Step Over Step Number of Steps Climbed 6 Comments Stair Climbing Comments impaired eccentric control L descending PT-OP-M Strength Start: 05/02/18 13:13 Freq: Status: Active Protocol: Document 06/26/18 12:50 RCC (Rec: 06/26/18 13:40 RCC [email or web address]) Hip Strength Hip Manual Muscle Testing Right Flexion (L2) 4 Good External Rotation 3+ Fair+ Internal Rotation 4+ Good+ Left Flexion (L2) 4+ Good+ External Rotation 3+ Fair+ Internal Rotation 4+ Good+ Knee Strength Knee Manual Muscle Testing Right Flexion (S2) 4+ Good+ Extension (L3) 5 Normal Left Flexion (S2) 4+ Good+ Extension (L3) 4+ Good+ Ankle/Foot Strength Ankle and Foot Manual Muscle Testing Right Dorsiflexion (L4) 4+ Good+ Left Dorsiflexion (L4) 4+ Good+ PT-OP-Q Treatments Start: 05/02/18 13:13 Freq: Status: Active Protocol: Document 07/14/18 14:35 GGD (Rec: 07/14/18 14:40 GGD [email or web address]) Cardio Equipment Recumbent Stepper (Sci-Fit) Duration (Minutes) 10 Resistance 4 Seat Position 16 Other 1.98 distance Gym Equipment Cable Column (Body Solid) Rows Resistance 40# Reps/Time 2x15 Lat Pull Down Resistance 40# Reps/Time 2x15 Shuttle Recovery Unilateral Squats Resistance 50# Reps/Time x12 each Bilateral Squats Resistance 75# Reps/Time 2x15 Therapeutic Exercises Standing Exercises heel cord stretch Standing Exercise Name heel cord stretch Side bilateral Equipment Used HOLLY Reps/Minutes 2x30 sec HS stretch Standing Exercise Name hamstring stretch Side bilateral Equipment Used stairs Reps/Minutes 2x30 sec Neuro Re-Education Treatment Balance Activities 2 Details balance board Reps/Duration 1 min each Comments forward/backwards, side to side SLS Details SLS- bilateral Surface firm PT-OP-R Modalities Start: 05/02/18 13:13 Freq: Status: Active Protocol: Document 06/09/18 17:13 GGD (Rec: 06/09/18 17:21 GGD [email or web address]) Hot Pack/Cold Pack Treatment Cold Pack Location L/S Patient Position Sitting Treatment Duration (minutes) 10 Patient Tolerance Good PT-OP-T Assessment and Plan Start: 05/02/18 13:13 Freq: Status: Active Protocol: Document 07/14/18 14:35 GGD (Rec: 07/14/18 14:40 GGD [email or web address]) Physical Therapy Assessment Assessment Summary Assessment Pt able to increase distance on scifit. He did have increase in fatigue and needed rest after scifit. He was able to progress balance and did better with SLS. Physical Therapy Plan Frequency and Duration Frequency of Treatment 3x/Week Duration of Treatment 8 weeks Plan of Care Start Date 06/26/18 Plan of Care End Date 08/21/18 Next Visit Focus/Plan Next Note Type Treatment Note Next Visit Plan Progress Balance. Core stabilization
--- NOTE | 2018-07-21 16:25 | PT.OTN ---
Current Diagnoses Myositis, unspecified (07/21/18) Physical Therapy Treatment Note PT-OP-A Visit Information Start: 05/02/18 13:13 Freq: Status: Active Protocol: Document 07/21/18 14:00 GGD (Rec: 07/21/18 16:25 GGD [email or web address]) Out-Patient Physical Therapy Visit Information Visit Information Visit Type Treatment Note Visit Start Time 12:00 Visit Stop Time 12:40 Total Visit Minutes 40 Visit Number 23 Number of HVAC R INSTRUCTOR Visits 2 Evaluation Information Evaluation Date 05/01/18 PT-OP-B Current Condition Start: 05/02/18 13:13 Freq: Status: Active Protocol: Document 05/01/18 12:45 RCC (Rec: 05/02/18 13:42 RCC [email or web address]) Current Condition History of Current Condition Onset Date 2015 Current Complaints SOB, weakness, unable to ambulate for exercise, pain all over body History of Current Condition Pt is a 73 y/o male presenting to physical therapy with a c/ o weakness, SOB with activity, pain throughout the body and inability to walk outdoors for exercise. 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 He states that initially his weakness and loss of function gradually started in 2015 after his from cancer. Pt admits he would sit for 6-8 hours a day, doing nothing. He has a complex medical history (see below). Pt admits that now he is embarrassed to see what little exercise he can do now but is extremely motivated to get better. He has found a female partner which he would like to be able to walk outdoors on trails with. 2 years ago, he was able to walk about 2.5 miles using walking sticks/poles. Treatment Goals Patient/Caregiver Goals walk outdoors on trails for exercise (walking on pavement increases his arthritic pain). Prior Functional Status Baseline Function- Mobility Modified Independent Baseline Function- Gait modified indep with increased time to travel community distances Baseline Function- Recreation/Hobbies trail walking 2.5 miles with walking sticks (2 yrs ago) Current Functional Impairments (Reported) Functional Limitations- Mobility/Gait fatigue/SOB and increased pain with community ambulation Functional Limitations- Recreation/ unable to perform Hobbies Personal Factors Other Personal Factors That May Effect cardiac history with 2 stents Therapy/Recovery placed, OA, L popliteal artery surgery/reconstruction, h/o prostate CA with radiation (45 sessions), HTN, B MIGUEL, depression since 2016 ( of spouse), multiple back and knee surgeries. PT-OP-C Subjective Start: 05/02/18 13:13 Freq: Status: Active Protocol: Document 07/21/18 14:00 GGD (Rec: 07/21/18 16:25 GGD [email or web address]) OP-PT Subjective Patient Comments Patient Comments Pt states he walked two days in a row and has very painful calfs. PT-OP-E Functional Tests Start: 05/02/18 13:13 Freq: Status: Active Protocol: Document 05/29/18 14:30 RCC (Rec: 05/29/18 15:46 RCC [email or web address]) Functional Tests 6 Minute Walk Test Distance 862 Device Used none PT-OP-G Mobility & Gait Start: 05/02/18 13:13 Freq: Status: Active Protocol: Document 05/29/18 14:30 RCC (Rec: 05/29/18 15:46 RCC [email or web address]) Stair Climbing Evaluation Evaluation Level of Assist On Stairs Independent Devices Stair Climbing Assistive Devices Right Railing Technique/Endurance Stair Climbing Direction Ascend and Descend Stair Climbing Technique Step Over Step Number of Steps Climbed 6 Comments Stair Climbing Comments impaired eccentric control L descending PT-OP-M Strength Start: 05/02/18 13:13 Freq: Status: Active Protocol: Document 06/26/18 12:50 RCC (Rec: 06/26/18 13:40 RCC [email or web address]) Hip Strength Hip Manual Muscle Testing Right Flexion (L2) 4 Good External Rotation 3+ Fair+ Internal Rotation 4+ Good+ Left Flexion (L2) 4+ Good+ External Rotation 3+ Fair+ Internal Rotation 4+ Good+ Knee Strength Knee Manual Muscle Testing Right Flexion (S2) 4+ Good+ Extension (L3) 5 Normal Left Flexion (S2) 4+ Good+ Extension (L3) 4+ Good+ Ankle/Foot Strength Ankle and Foot Manual Muscle Testing Right Dorsiflexion (L4) 4+ Good+ Left Dorsiflexion (L4) 4+ Good+ PT-OP-Q Treatments Start: 05/02/18 13:13 Freq: Status: Active Protocol: Document 07/21/18 14:00 GGD (Rec: 07/21/18 16:25 GGD [email or web address]) Cardio Equipment Recumbent Stepper (Sci-Fit) Duration (Minutes) 10 Resistance 4 Seat Position 16 Other 1.72 distance Gym Equipment Cable Column (Body Solid) Rows Resistance 40# Reps/Time 2x15 Lat Pull Down Resistance 40# Reps/Time 2x15 Shuttle Recovery Unilateral Squats Resistance 50# Reps/Time x12 each Bilateral Squats Resistance 75# Reps/Time 2x15 Therapeutic Exercises Standing Exercises heel cord stretch Standing Exercise Name heel cord stretch Side bilateral Equipment Used HOLLY Reps/Minutes 2x30 sec HS stretch Standing Exercise Name hamstring stretch Side bilateral Equipment Used stairs Reps/Minutes 2x30 sec Neuro Re-Education Treatment Balance Activities SLS Details SLS- bilateral Surface firm PT-OP-R Modalities Start: 05/02/18 13:13 Freq: Status: Active Protocol: Document 06/09/18 17:13 GGD (Rec: 06/09/18 17:21 GGD [email or web address]) Hot Pack/Cold Pack Treatment Cold Pack Location L/S Patient Position Sitting Treatment Duration (minutes) 10 Patient Tolerance Good PT-OP-T Assessment and Plan Start: 05/02/18 13:13 Freq: Status: Active Protocol: Document 07/21/18 14:00 GGD (Rec: 07/21/18 16:25 GGD [email or web address]) Physical Therapy Assessment Assessment Summary Assessment Pt had increase in fatigue and needed rest breaks. He had mild increase in calf tightness and pain with exercise. Physical Therapy Plan Frequency and Duration Frequency of Treatment 3x/Week Duration of Treatment 8 weeks Plan of Care Start Date 06/26/18 Plan of Care End Date 08/21/18 Next Visit Focus/Plan Next Note Type Treatment Note Next Visit Plan Progress Balance. Core stabilization
--- NOTE | 2018-07-24 12:05 | PT.OTN ---
Current Diagnoses Myositis, unspecified (07/24/18) Physical Therapy Treatment Note PT-OP-A Visit Information Start: 05/02/18 13:13 Freq: Status: Active Protocol: Document 07/24/18 12:05 RCC (Rec: 07/24/18 13:39 RCC [email or web address]) Out-Patient Physical Therapy Visit Information Visit Information Visit Type Treatment Note Visit Start Time 12:05 Visit Stop Time 12:45 Total Visit Minutes 40 Visit Number 24 Number of CLOTH COVERED HELMET PULLER Visits 0 Evaluation Information Evaluation Date 05/01/18 PT-OP-B Current Condition Start: 05/02/18 13:13 Freq: Status: Active Protocol: Document 05/01/18 12:45 RCC (Rec: 05/02/18 13:42 RCC [email or web address]) Current Condition History of Current Condition Onset Date 2015 Current Complaints SOB, weakness, unable to ambulate for exercise, pain all over body History of Current Condition Pt is a 73 y/o male presenting to physical therapy with a c/ o weakness, SOB with activity, pain throughout the body and inability to walk outdoors for exercise. 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 He states that initially his weakness and loss of function gradually started in 2015 after his from cancer. Pt admits he would sit for 6-8 hours a day, doing nothing. He has a complex medical history (see below). Pt admits that now he is embarrassed to see what little exercise he can do now but is extremely motivated to get better. He has found a female partner which he would like to be able to walk outdoors on trails with. 2 years ago, he was able to walk about 2.5 miles using walking sticks/poles. Treatment Goals Patient/Caregiver Goals walk outdoors on trails for exercise (walking on pavement increases his arthritic pain). Prior Functional Status Baseline Function- Mobility Modified Independent Baseline Function- Gait modified indep with increased time to travel community distances Baseline Function- Recreation/Hobbies trail walking 2.5 miles with walking sticks (2 yrs ago) Current Functional Impairments (Reported) Functional Limitations- Mobility/Gait fatigue/SOB and increased pain with community ambulation Functional Limitations- Recreation/ unable to perform Hobbies Personal Factors Other Personal Factors That May Effect cardiac history with 2 stents Therapy/Recovery placed, OA, L popliteal artery surgery/reconstruction, h/o prostate CA with radiation (45 sessions), HTN, B MIGUEL, depression since 2016 ( of spouse), multiple back and knee surgeries. PT-OP-C Subjective Start: 05/02/18 13:13 Freq: Status: Active Protocol: Document 07/24/18 12:05 RCC (Rec: 07/24/18 13:39 RCC [email or web address]) OP-PT Subjective Patient Comments Patient Comments Pt notes that his calves are feeling less painful but still tight. PT-OP-E Functional Tests Start: 05/02/18 13:13 Freq: Status: Active Protocol: Document 05/29/18 14:30 RCC (Rec: 05/29/18 15:46 RCC [email or web address]) Functional Tests 6 Minute Walk Test Distance 862 Device Used none PT-OP-G Mobility & Gait Start: 05/02/18 13:13 Freq: Status: Active Protocol: Document 05/29/18 14:30 RCC (Rec: 05/29/18 15:46 RCC [email or web address]) Stair Climbing Evaluation Evaluation Level of Assist On Stairs Independent Devices Stair Climbing Assistive Devices Right Railing Technique/Endurance Stair Climbing Direction Ascend and Descend Stair Climbing Technique Step Over Step Number of Steps Climbed 6 Comments Stair Climbing Comments impaired eccentric control L descending PT-OP-M Strength Start: 05/02/18 13:13 Freq: Status: Active Protocol: Document 06/26/18 12:50 RCC (Rec: 06/26/18 13:40 RCC [email or web address]) Hip Strength Hip Manual Muscle Testing Right Flexion (L2) 4 Good External Rotation 3+ Fair+ Internal Rotation 4+ Good+ Left Flexion (L2) 4+ Good+ External Rotation 3+ Fair+ Internal Rotation 4+ Good+ Knee Strength Knee Manual Muscle Testing Right Flexion (S2) 4+ Good+ Extension (L3) 5 Normal Left Flexion (S2) 4+ Good+ Extension (L3) 4+ Good+ Ankle/Foot Strength Ankle and Foot Manual Muscle Testing Right Dorsiflexion (L4) 4+ Good+ Left Dorsiflexion (L4) 4+ Good+ PT-OP-Q Treatments Start: 05/02/18 13:13 Freq: Status: Active Protocol: Document 07/24/18 12:05 RCC (Rec: 07/24/18 13:39 RCC [email or web address]) Cardio Equipment Recumbent Stepper (Sci-Fit) Duration (Minutes) 10 Resistance 4 Seat Position 16 Other 1.86 distance Gym Equipment Cable Column (Body Solid) Rows Resistance 40# Reps/Time 3x15 Lat Pull Down Resistance 40# Reps/Time 2x15 Therapeutic Exercises Supine Exercises LAQ Side bilateral Resistance 2 lbs Equipment Used AW Reps/Minutes x15 each QS Supine Exercise Name quad set Side bilateral Reps/Minutes x10 Comments 5 sec hold SLR- hip flexion Side bilateral Reps/Minutes 2x5 Comments lift 6 Standing Exercises heel cord stretch Standing Exercise Name heel cord stretch Side bilateral Equipment Used HOLLY Reps/Minutes 2x30 sec HS stretch Standing Exercise Name hamstring stretch Side bilateral Equipment Used stairs Reps/Minutes 2x30 sec Neuro Re-Education Treatment Balance Activities SLS Details SLS- bilateral Surface firm Other Activities heel to toe gait forward Details in // bars for UE support PT-OP-R Modalities Start: 05/02/18 13:13 Freq: Status: Active Protocol: Document 06/09/18 17:13 GGD (Rec: 06/09/18 17:21 GGD [email or web address]) Hot Pack/Cold Pack Treatment Cold Pack Location L/S Patient Position Sitting Treatment Duration (minutes) 10 Patient Tolerance Good PT-OP-T Assessment and Plan Start: 05/02/18 13:13 Freq: Status: Active Protocol: Document 07/24/18 12:05 RCC (Rec: 07/24/18 13:39 RCC [email or web address]) Physical Therapy Assessment Assessment Summary Assessment Pt with less noted discomfort in bilateral calves today. Pt unable to lift either LE with SLR to height of opposite knee due to low back pain and weakness. Physical Therapy Plan Frequency and Duration Frequency of Treatment 3x/Week Duration of Treatment 8 weeks Plan of Care Start Date 06/26/18 Plan of Care End Date 08/21/18 Next Visit Focus/Plan Next Note Type Treatment Note Next Visit Plan core and LE strengthening ( quadriceps in open chain)
--- NOTE | 2018-07-29 12:03 | PT.OTN ---
Current Diagnoses Myositis, unspecified (07/29/18) Physical Therapy Treatment Note PT-OP-A Visit Information Start: 05/02/18 13:13 Freq: Status: Active Protocol: Document 07/29/18 12:03 RCC (Rec: 07/29/18 13:31 RCC [email or web address]) Out-Patient Physical Therapy Visit Information Visit Information Visit Type Treatment Note Visit Start Time 12:03 Visit Stop Time 12:50 Total Visit Minutes 47 Visit Number 25 Number of MANAGER GRAPHIC Visits 0 Evaluation Information Evaluation Date 05/01/18 PT-OP-B Current Condition Start: 05/02/18 13:13 Freq: Status: Active Protocol: Document 05/01/18 12:45 RCC (Rec: 05/02/18 13:42 RCC [email or web address]) Current Condition History of Current Condition Onset Date 2015 Current Complaints SOB, weakness, unable to ambulate for exercise, pain all over body History of Current Condition Pt is a 73 y/o male presenting to physical therapy with a c/ o weakness, SOB with activity, pain throughout the body and inability to walk outdoors for exercise. 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 He states that initially his weakness and loss of function gradually started in 2015 after his from cancer. Pt admits he would sit for 6-8 hours a day, doing nothing. He has a complex medical history (see below). Pt admits that now he is embarrassed to see what little exercise he can do now but is extremely motivated to get better. He has found a female partner which he would like to be able to walk outdoors on trails with. 2 years ago, he was able to walk about 2.5 miles using walking sticks/poles. Treatment Goals Patient/Caregiver Goals walk outdoors on trails for exercise (walking on pavement increases his arthritic pain). Prior Functional Status Baseline Function- Mobility Modified Independent Baseline Function- Gait modified indep with increased time to travel community distances Baseline Function- Recreation/Hobbies trail walking 2.5 miles with walking sticks (2 yrs ago) Current Functional Impairments (Reported) Functional Limitations- Mobility/Gait fatigue/SOB and increased pain with community ambulation Functional Limitations- Recreation/ unable to perform Hobbies Personal Factors Other Personal Factors That May Effect cardiac history with 2 stents Therapy/Recovery placed, OA, L popliteal artery surgery/reconstruction, h/o prostate CA with radiation (45 sessions), HTN, B MIGUEL, depression since 2016 ( of spouse), multiple back and knee surgeries. 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 PT-OP-E Functional Tests Start: 05/02/18 13:13 Freq: Status: Active Protocol: Document 05/29/18 14:30 RCC (Rec: 05/29/18 15:46 RCC [email or web address]) Functional Tests 6 Minute Walk Test Distance 862 Device Used none PT-OP-G Mobility & Gait Start: 05/02/18 13:13 Freq: Status: Active Protocol: Document 05/29/18 14:30 RCC (Rec: 05/29/18 15:46 RCC [email or web address]) Stair Climbing Evaluation Evaluation Level of Assist On Stairs Independent Devices Stair Climbing Assistive Devices Right Railing Technique/Endurance Stair Climbing Direction Ascend and Descend Stair Climbing Technique Step Over Step Number of Steps Climbed 6 Comments Stair Climbing Comments impaired eccentric control L descending PT-OP-M Strength Start: 05/02/18 13:13 Freq: Status: Active Protocol: Document 06/26/18 12:50 RCC (Rec: 06/26/18 13:40 RCC [email or web address]) Hip Strength Hip Manual Muscle Testing Right Flexion (L2) 4 Good External Rotation 3+ Fair+ Internal Rotation 4+ Good+ Left Flexion (L2) 4+ Good+ External Rotation 3+ Fair+ Internal Rotation 4+ Good+ Knee Strength Knee Manual Muscle Testing Right Flexion (S2) 4+ Good+ Extension (L3) 5 Normal Left Flexion (S2) 4+ Good+ Extension (L3) 4+ Good+ Ankle/Foot Strength Ankle and Foot Manual Muscle Testing Right Dorsiflexion (L4) 4+ Good+ Left Dorsiflexion (L4) 4+ Good+ PT-OP-Q Treatments Start: 05/02/18 13:13 Freq: Status: Active Protocol: Document 07/29/18 12:03 RCC (Rec: 07/29/18 13:34 RCC [email or web address]) Cardio Equipment Recumbent Stepper (Sci-Fit) Duration (Minutes) 10 Resistance 4 Seat Position 16 Other 1.67 distance Gym Equipment Therapeutic Ball knee and hip flex/extension Exercise Details bilateral Ball Size/Color 65 cm Body Position Supine Reps/Duration 2x15 Therapeutic Exercises Supine Exercises piriformis stretch Side bilateral Reps/Minutes 2x30 sec Comments manual adductor stretch Side bilateral Reps/Minutes 2x30 sec Comments manual HS stretch Side bilateral Reps/Minutes 2x30 sec Comments manual hip flexor stretch Supine Exercise Name psoas and rectus femoris stretch Side bilateral Reps/Minutes 2 each Comments LE off EOB Standing Exercises heel cord stretch Standing Exercise Name heel cord stretch Side bilateral Equipment Used HOLLY Reps/Minutes 2x30 sec Manual Therapy Treatment Soft Tissue Mobilization quadriceps, psoas, IT band Body Location bilateral Mobilization Type Myofascial Release Rolling Trigger Point Release Intensity/Depth Moderate Body Position Hooklying Comments with hands and the stick PT-OP-T Assessment and Plan Start: 05/02/18 13:13 Freq: Status: Active Protocol: Document 07/29/18 12:03 RCC (Rec: 07/29/18 13:31 RCC [email or web address]) Physical Therapy Assessment Assessment Summary Assessment Pt with improved standing posture after manual therapy and rolling with stick to hip flexors and quadriceps. Pt continues to have difficulty with house chores and still limited with his ambulation on uneven ground outside. Physical Therapy Plan Frequency and Duration Frequency of Treatment 3x/Week Duration of Treatment 8 weeks Plan of Care Start Date 06/26/18 Plan of Care End Date 08/21/18 Next Visit Focus/Plan Next Note Type Treatment Note Next Visit Plan cont. quad strengthening, core stability.
--- NOTE | 2018-07-31 12:10 | PT.OTN ---
Current Diagnoses Myositis, unspecified (07/31/18) Physical Therapy Treatment Note PT-OP-A Visit Information Start: 05/02/18 13:13 Freq: Status: Active Protocol: Document 07/31/18 12:10 RCC (Rec: 07/31/18 13:07 RCC [email or web address]) Out-Patient Physical Therapy Visit Information Visit Information Visit Type Treatment Note Visit Start Time 12:10 Visit Stop Time 12:55 Total Visit Minutes 45 Visit Number 26 Number of LIQUIFIED NATURAL GAS SPECIALIST Visits 0 Evaluation Information Evaluation Date 05/01/18 PT-OP-B Current Condition Start: 05/02/18 13:13 Freq: Status: Active Protocol: Document 05/01/18 12:45 RCC (Rec: 05/02/18 13:42 [facility] [email or web address]) Current Condition History of Current Condition Onset Date 2015 Current Complaints SOB, weakness, unable to ambulate for exercise, pain all over body History of Current Condition Pt is a 73 y/o male presenting to physical therapy with a c/ o weakness, SOB with activity, pain throughout the body and inability to walk outdoors for exercise. 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 He states that initially his weakness and loss of function gradually started in 2015 after his from cancer. Pt admits he would sit for 6-8 hours a day, doing nothing. He has a complex medical history (see below). Pt admits that now he is embarrassed to see what little exercise he can do now but is extremely motivated to get better. He has found a female partner which he would like to be able to walk outdoors on trails with. 2 years ago, he was able to walk about 2.5 miles using walking sticks/poles. Treatment Goals Patient/Caregiver Goals walk outdoors on trails for exercise (walking on pavement increases his arthritic pain). Prior Functional Status Baseline Function- Mobility Modified Independent Baseline Function- Gait modified indep with increased time to travel community distances Baseline Function- Recreation/Hobbies trail walking 2.5 miles with walking sticks (2 yrs ago) Current Functional Impairments (Reported) Functional Limitations- Mobility/Gait fatigue/SOB and increased pain with community ambulation Functional Limitations- Recreation/ unable to perform Hobbies Personal Factors Other Personal Factors That May Effect cardiac history with 2 stents Therapy/Recovery placed, OA, L popliteal artery surgery/reconstruction, h/o prostate CA with radiation (45 sessions), HTN, B MIGUEL, depression since 2016 ( of spouse), multiple back and knee surgeries. PT-OP-C Subjective Start: 05/02/18 13:13 Freq: Status: Active Protocol: Document 07/31/18 12:10 RCC (Rec: 07/31/18 13:07 RCC [email or web address]) OP-PT Subjective Patient Comments Patient Comments Pt notes his quads are better today, but he is having increased bilateral hip discomfort with gait. PT-OP-E Functional Tests Start: 05/02/18 13:13 Freq: Status: Active Protocol: Document 05/29/18 14:30 RCC (Rec: 05/29/18 15:46 RCC [email or web address]) Functional Tests 6 Minute Walk Test Distance 862 Device Used none PT-OP-G Mobility & Gait Start: 05/02/18 13:13 Freq: Status: Active Protocol: Document 05/29/18 14:30 RCC (Rec: 05/29/18 15:46 RCC [email or web address]) Stair Climbing Evaluation Evaluation Level of Assist On Stairs Independent Devices Stair Climbing Assistive Devices Right Railing Technique/Endurance Stair Climbing Direction Ascend and Descend Stair Climbing Technique Step Over Step Number of Steps Climbed 6 Comments Stair Climbing Comments impaired eccentric control L descending PT-OP-M Strength Start: 05/02/18 13:13 Freq: Status: Active Protocol: Document 06/26/18 12:50 RCC (Rec: 06/26/18 13:40 RCC [email or web address]) Hip Strength Hip Manual Muscle Testing Right Flexion (L2) 4 Good External Rotation 3+ Fair+ Internal Rotation 4+ Good+ Left Flexion (L2) 4+ Good+ External Rotation 3+ Fair+ Internal Rotation 4+ Good+ Knee Strength Knee Manual Muscle Testing Right Flexion (S2) 4+ Good+ Extension (L3) 5 Normal Left Flexion (S2) 4+ Good+ Extension (L3) 4+ Good+ Ankle/Foot Strength Ankle and Foot Manual Muscle Testing Right Dorsiflexion (L4) 4+ Good+ Left Dorsiflexion (L4) 4+ Good+ PT-OP-Q Treatments Start: 05/02/18 13:13 Freq: Status: Active Protocol: Document 07/31/18 12:10 RCC (Rec: 07/31/18 13:07 RCC [email or web address]) Cardio Equipment Recumbent Stepper (Sci-Fit) Duration (Minutes) 10 Resistance 4 Seat Position 16 Other 1.71 distance Therapeutic Exercises Standing Exercises heel cord stretch Standing Exercise Name heel cord stretch Side bilateral Equipment Used HOLLY Reps/Minutes 2x30 sec HS stretch Standing Exercise Name hamstring stretch Side bilateral Equipment Used stairs Reps/Minutes 2x30 sec Manual Therapy Treatment Soft Tissue Mobilization gluteals and piriformis Mobilization Type Myofascial Release Rolling Intensity/Depth Moderate Body Position Sidelying Comments bilateral; 15 min each side PT-OP-R Modalities Start: 05/02/18 13:13 Freq: Status: Active Protocol: Document 06/09/18 17:13 GGD (Rec: 06/09/18 17:21 GGD [email or web address]) Hot Pack/Cold Pack Treatment Cold Pack Location L/S Patient Position Sitting Treatment Duration (minutes) 10 Patient Tolerance Good PT-OP-T Assessment and Plan Start: 05/02/18 13:13 Freq: Status: Active Protocol: Document 07/31/18 12:10 RCC (Rec: 07/31/18 13:07 RCC [email or web address]) Physical Therapy Assessment Assessment Summary Assessment Pt with moderate tone in gluteus medius and piriformis bilaterally, likely due to increased time on feet and walking yesterday during grocery shopping. Physical Therapy Plan Frequency and Duration Frequency of Treatment 3x/Week Duration of Treatment 8 weeks Plan of Care Start Date 06/26/18 Plan of Care End Date 08/21/18 Next Visit Focus/Plan Next Note Type Treatment Note Next Visit Plan core stability, gluteal strengthening
--- NOTE | 2018-08-05 12:00 | PT.OTN ---
Current Diagnoses Myositis, unspecified (08/05/18) Physical Therapy Treatment Note PT-OP-A Visit Information Start: 05/02/18 13:13 Freq: Status: Active Protocol: Document 08/05/18 12:00 RCC (Rec: 08/05/18 13:21 RCC [email or web address]) Out-Patient Physical Therapy Visit Information Visit Information Visit Type Treatment Note Visit Start Time 12:00 Visit Stop Time 12:52 Total Visit Minutes 52 Visit Number 27 Number of DRY CLEANING MANAGER Visits 0 Evaluation Information Evaluation Date 05/01/18 PT-OP-B Current Condition Start: 05/02/18 13:13 Freq: Status: Active Protocol: Document 05/01/18 12:45 RCC (Rec: 05/02/18 13:42 RCC [email or web address]) Current Condition History of Current Condition Onset Date 2015 Current Complaints SOB, weakness, unable to ambulate for exercise, pain all over body History of Current Condition Pt is a 73 y/o male presenting to physical therapy with a c/ o weakness, SOB with activity, pain throughout the body and inability to walk outdoors for exercise. 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 He states that initially his weakness and loss of function gradually started in 2015 after his from cancer. Pt admits he would sit for 6-8 hours a day, doing nothing. He has a complex medical history (see below). Pt admits that now he is embarrassed to see what little exercise he can do now but is extremely motivated to get better. He has found a female partner which he would like to be able to walk outdoors on trails with. 2 years ago, he was able to walk about 2.5 miles using walking sticks/poles. Treatment Goals Patient/Caregiver Goals walk outdoors on trails for exercise (walking on pavement increases his arthritic pain). Prior Functional Status Baseline Function- Mobility Modified Independent Baseline Function- Gait modified indep with increased time to travel community distances Baseline Function- Recreation/Hobbies trail walking 2.5 miles with walking sticks (2 yrs ago) Current Functional Impairments (Reported) Functional Limitations- Mobility/Gait fatigue/SOB and increased pain with community ambulation Functional Limitations- Recreation/ unable to perform Hobbies Personal Factors Other Personal Factors That May Effect cardiac history with 2 stents Therapy/Recovery placed, OA, L popliteal artery surgery/reconstruction, h/o prostate CA with radiation (45 sessions), HTN, B MIGUEL, depression since 2016 ( of spouse), multiple back and knee surgeries. PT-OP-C Subjective Start: 05/02/18 13:13 Freq: Status: Active Protocol: Document 08/05/18 12:00 RCC (Rec: 08/05/18 13:21 [facility] [email or web address]) OP-PT Subjective Patient Comments Patient Comments Pt states that his bilateral hips felt much better after the previous session and increased confidence with walking today. PT-OP-E Functional Tests Start: 05/02/18 13:13 Freq: Status: Active Protocol: Document 05/29/18 14:30 RCC (Rec: 05/29/18 15:46 RCC [email or web address]) Functional Tests 6 Minute Walk Test Distance 862 Device Used none PT-OP-G Mobility & Gait Start: 05/02/18 13:13 Freq: Status: Active Protocol: Document 05/29/18 14:30 RCC (Rec: 05/29/18 15:46 RCC [email or web address]) Stair Climbing Evaluation Evaluation Level of Assist On Stairs Independent Devices Stair Climbing Assistive Devices Right Railing Technique/Endurance Stair Climbing Direction Ascend and Descend Stair Climbing Technique Step Over Step Number of Steps Climbed 6 Comments Stair Climbing Comments impaired eccentric control L descending PT-OP-M Strength Start: 05/02/18 13:13 Freq: Status: Active Protocol: Document 06/26/18 12:50 RCC (Rec: 06/26/18 13:40 RCC [email or web address]) Hip Strength Hip Manual Muscle Testing Right Flexion (L2) 4 Good External Rotation 3+ Fair+ Internal Rotation 4+ Good+ Left Flexion (L2) 4+ Good+ External Rotation 3+ Fair+ Internal Rotation 4+ Good+ Knee Strength Knee Manual Muscle Testing Right Flexion (S2) 4+ Good+ Extension (L3) 5 Normal Left Flexion (S2) 4+ Good+ Extension (L3) 4+ Good+ Ankle/Foot Strength Ankle and Foot Manual Muscle Testing Right Dorsiflexion (L4) 4+ Good+ Left Dorsiflexion (L4) 4+ Good+ PT-OP-Q Treatments Start: 05/02/18 13:13 Freq: Status: Active Protocol: Document 08/05/18 12:00 RCC (Rec: 08/05/18 13:21 RCC [email or web address]) Cardio Equipment Recumbent Stepper (Sci-Fit) Duration (Minutes) 10 Resistance 4 Seat Position 16 Other 1.65 distance Gym Equipment Cable Column (Body Solid) Rows Resistance 50# Reps/Time 2x15 Lat Pull Down Resistance 50# Reps/Time 2x15 Therapeutic Exercises Supine Exercises piriformis stretch Side bilateral Reps/Minutes x30 sec Comments manual Standing Exercises hip extension Side bilateral Resistance L1 Reps/Minutes 15 each heel cord stretch Standing Exercise Name heel cord stretch Side bilateral Equipment Used HOLLY Reps/Minutes 2x30 sec HS stretch Standing Exercise Name hamstring stretch Side bilateral Equipment Used stairs Reps/Minutes 2x30 sec Manual Therapy Treatment Soft Tissue Mobilization gluteals and piriformis Mobilization Type Myofascial Release Rolling Intensity/Depth Moderate Body Position Sidelying Comments bilateral; 8 min each side PT-OP-R Modalities Start: 05/02/18 13:13 Freq: Status: Active Protocol: Document 08/05/18 12:00 RCC (Rec: 08/05/18 13:21 [facility] [email or web address]) Hot Pack/Cold Pack Treatment Cold Pack Location bilateral hip/buttock Patient Position Hooklying Treatment Duration (minutes) 10 Patient Tolerance Good Comments strap for compression PT-OP-T Assessment and Plan Start: 05/02/18 13:13 Freq: Status: Active Protocol: Document 08/05/18 12:00 RCC (Rec: 08/05/18 13:21 [facility] [email or web address]) Physical Therapy Assessment Assessment Summary Assessment Pt able to tolerate increased resistance with rows and lat pulldowns today, and added resistance to hip extension without c/o low back pain. Pt does require cuing for posture with standing activities. Physical Therapy Plan Frequency and Duration Frequency of Treatment 3x/Week Duration of Treatment 8 weeks Plan of Care Start Date 06/26/18 Plan of Care End Date 08/21/18 Next Visit Focus/Plan Next Note Type Treatment Note Next Visit Plan core strengthening as toelerated to stabilize lumbar spine
--- NOTE | 2018-08-07 12:00 | PT.OTN ---
Current Diagnoses Myositis, unspecified (08/07/18) Physical Therapy Treatment Note PT-OP-A Visit Information Start: 05/02/18 13:13 Freq: Status: Active Protocol: Document 08/07/18 12:00 RCC (Rec: 08/07/18 15:09 RCC [email or web address]) Out-Patient Physical Therapy Visit Information Visit Information Visit Type Treatment Note Visit Start Time 12:00 Visit Stop Time 12:55 Total Visit Minutes 55 Visit Number 28 Number of DAY WORKER Visits 0 Evaluation Information Evaluation Date 05/01/18 PT-OP-B Current Condition Start: 05/02/18 13:13 Freq: Status: Active Protocol: Document 05/01/18 12:45 RCC (Rec: 05/02/18 13:42 RCC [email or web address]) Current Condition History of Current Condition Onset Date 2015 Current Complaints SOB, weakness, unable to ambulate for exercise, pain all over body History of Current Condition Pt is a 73 y/o male presenting to physical therapy with a c/ o weakness, SOB with activity, pain throughout the body and inability to walk outdoors for exercise. 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 He states that initially his weakness and loss of function gradually started in 2015 after his from cancer. Pt admits he would sit for 6-8 hours a day, doing nothing. He has a complex medical history (see below). Pt admits that now he is embarrassed to see what little exercise he can do now but is extremely motivated to get better. He has found a female partner which he would like to be able to walk outdoors on trails with. 2 years ago, he was able to walk about 2.5 miles using walking sticks/poles. Treatment Goals Patient/Caregiver Goals walk outdoors on trails for exercise (walking on pavement increases his arthritic pain). Prior Functional Status Baseline Function- Mobility Modified Independent Baseline Function- Gait modified indep with increased time to travel community distances Baseline Function- Recreation/Hobbies trail walking 2.5 miles with walking sticks (2 yrs ago) Current Functional Impairments (Reported) Functional Limitations- Mobility/Gait fatigue/SOB and increased pain with community ambulation Functional Limitations- Recreation/ unable to perform Hobbies Personal Factors Other Personal Factors That May Effect cardiac history with 2 stents Therapy/Recovery placed, OA, L popliteal artery surgery/reconstruction, h/o prostate CA with radiation (45 sessions), HTN, B MIGUEL, depression since 2016 ( of spouse), multiple back and knee surgeries. PT-OP-C Subjective Start: 05/02/18 13:13 Freq: Status: Active Protocol: Document 08/07/18 12:00 RCC (Rec: 08/07/18 15:09 RCC [email or web address]) OP-PT Subjective Patient Comments Patient Comments Pt has noticed that putting his shoe on the L foot is easier, and has more flexibility at the hip. PT-OP-E Functional Tests Start: 05/02/18 13:13 Freq: Status: Active Protocol: Document 05/29/18 14:30 RCC (Rec: 05/29/18 15:46 RCC [email or web address]) Functional Tests 6 Minute Walk Test Distance 862 Device Used none PT-OP-G Mobility & Gait Start: 05/02/18 13:13 Freq: Status: Active Protocol: Document 08/07/18 12:00 RCC (Rec: 08/07/18 15:09 RCC [email or web address]) OP Mobility Evaluation Bed Mobility Supine to and from Sit UE support required, slow movements d/t low back pain Transfers Sit to Stand requires UE assistance from low seat PT-OP-M Strength Start: 05/02/18 13:13 Freq: Status: Active Protocol: Document 06/26/18 12:50 RCC (Rec: 06/26/18 13:40 RCC [email or web address]) Hip Strength Hip Manual Muscle Testing Right Flexion (L2) 4 Good External Rotation 3+ Fair+ Internal Rotation 4+ Good+ Left Flexion (L2) 4+ Good+ External Rotation 3+ Fair+ Internal Rotation 4+ Good+ Knee Strength Knee Manual Muscle Testing Right Flexion (S2) 4+ Good+ Extension (L3) 5 Normal Left Flexion (S2) 4+ Good+ Extension (L3) 4+ Good+ Ankle/Foot Strength Ankle and Foot Manual Muscle Testing Right Dorsiflexion (L4) 4+ Good+ Left Dorsiflexion (L4) 4+ Good+ PT-OP-Q Treatments Start: 05/02/18 13:13 Freq: Status: Active Protocol: Document 08/07/18 12:00 RCC (Rec: 08/07/18 15:09 RCC [email or web address]) Cardio Equipment Recumbent Stepper (Sci-Fit) Duration (Minutes) 10 Resistance 4 Seat Position 16 Other 1.86 distance Gym Equipment Cable Column (Body Solid) Rows Resistance 50# Reps/Time 2x20 Lat Pull Down Resistance 50# Reps/Time 2x20 Shuttle Recovery Unilateral Squats Resistance 50# Reps/Time x15 each Bilateral Squats Resistance 87# Reps/Time 15 Therapeutic Exercises Standing Exercises heel cord stretch Standing Exercise Name heel cord stretch Side bilateral Equipment Used HOLLY Reps/Minutes 2x30 sec HS stretch Standing Exercise Name hamstring stretch Side bilateral Equipment Used stairs Reps/Minutes 2x30 sec resisted walking Standing Exercise Name lateral Side bilateral Resistance Green Equipment Used T-band Reps/Minutes 2 laps Manual Therapy Treatment Soft Tissue Mobilization gluteals and piriformis Mobilization Type Myofascial Release Rolling Intensity/Depth Moderate Body Position Sidelying Comments bilateral PT-OP-R Modalities Start: 05/02/18 13:13 Freq: Status: Active Protocol: Document 08/07/18 12:00 RCC (Rec: 08/07/18 15:09 [facility] [email or web address]) Hot Pack/Cold Pack Treatment Cold Pack Location bilateral hip/buttock Patient Position Hooklying Treatment Duration (minutes) 10 Patient Tolerance Good Comments strap for compression PT-OP-T Assessment and Plan Start: 05/02/18 13:13 Freq: Status: Active Protocol: Document 08/07/18 12:00 RCC (Rec: 08/07/18 15:09 [facility] [email or web address]) Physical Therapy Assessment Assessment Summary Assessment Pt requires UE for sit<->stand from low seat, and requires prolonged time to peform log roll and supine<->sit due to fear of increased low back pain and poor mobility and core weakness. He tolerated increased resistance on leg press today, and did not require tactile cuing with lat pulldowns. Physical Therapy Plan Frequency and Duration Frequency of Treatment 3x/Week Duration of Treatment 8 weeks Plan of Care Start Date 06/26/18 Plan of Care End Date 08/21/18 Next Visit Focus/Plan Next Note Type Treatment Note Next Visit Plan core stabilization
--- NOTE | 2018-08-12 12:15 | PT.OTN ---
Current Diagnoses Myositis, unspecified (08/07/18) Physical Therapy Treatment Note PT-OP-A Visit Information Start: 05/02/18 13:13 Freq: Status: Active Protocol: Document 08/12/18 12:15 RCC (Rec: 08/12/18 17:46 RCC [email or web address]) Out-Patient Physical Therapy Visit Information Visit Information Visit Type Cancellation Visit Note pt presented to his session today with c/o R sided flank and abdominal pain. He denies any trauma. Bowel and bladder function is normal per pt. He is unsure of cause. BP 170/96, temperature 98.6, MS 68 bpm, O2 saturation 96% on RA. Negative percussion over kidneys. Tenderness to palpation in lumbar paraspinals, QL on the R as well as flank and abdominal region. Pt is high levels of pain, taken to ER to perform further testing for possible causes. Pt was taken via manual w/c to ER. Cancel today's session. Physical Therapy Plan Frequency and Duration Frequency of Treatment 3x/Week Duration of Treatment 8 weeks Plan of Care Start Date 06/26/18 Plan of Care End Date 08/21/18 Next Visit Focus/Plan Next Note Type Treatment Note Next Visit Plan core stabilization
--- NOTE | 2018-08-19 13:45 | PT.OTN ---
Current Diagnoses Myositis, unspecified (08/19/18) Physical Therapy Treatment Note PT-OP-A Visit Information Start: 05/02/18 13:13 Freq: Status: Active Protocol: Document 08/19/18 13:45 RCC (Rec: 08/20/18 11:07 RCC [email or web address]) Out-Patient Physical Therapy Visit Information Visit Information Visit Type Treatment Note Visit Start Time 13:45 Visit Stop Time 14:28 Total Visit Minutes 43 Visit Number 29 Number of [employer] Visits 0 Evaluation Information Evaluation Date 05/01/18 PT-OP-B Current Condition Start: 05/02/18 13:13 Freq: Status: Active Protocol: Document 05/01/18 12:45 RCC (Rec: 05/02/18 13:42 RCC [email or web address]) Current Condition History of Current Condition Onset Date 2015 Current Complaints SOB, weakness, unable to ambulate for exercise, pain all over body History of Current Condition Pt is a 73 y/o male presenting to physical therapy with a c/ o weakness, SOB with activity, pain throughout the body and inability to walk outdoors for exercise. 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 He states that initially his weakness and loss of function gradually started in 2015 after his from cancer. Pt admits he would sit for 6-8 hours a day, doing nothing. He has a complex medical history (see below). Pt admits that now he is embarrassed to see what little exercise he can do now but is extremely motivated to get better. He has found a female partner which he would like to be able to walk outdoors on trails with. 2 years ago, he was able to walk about 2.5 miles using walking sticks/poles. Treatment Goals Patient/Caregiver Goals walk outdoors on trails for exercise (walking on pavement increases his arthritic pain). Prior Functional Status Baseline Function- Mobility Modified Independent Baseline Function- Gait modified indep with increased time to travel community distances Baseline Function- Recreation/Hobbies trail walking 2.5 miles with walking sticks (2 yrs ago) Current Functional Impairments (Reported) Functional Limitations- Mobility/Gait fatigue/SOB and increased pain with community ambulation Functional Limitations- Recreation/ unable to perform Hobbies Personal Factors Other Personal Factors That May Effect cardiac history with 2 stents Therapy/Recovery placed, OA, L popliteal artery surgery/reconstruction, h/o prostate CA with radiation (45 sessions), HTN, B MIGUEL, depression since 2016 ( of spouse), multiple back and knee surgeries. PT-OP-C Subjective Start: 05/02/18 13:13 Freq: Status: Active Protocol: Document 08/19/18 13:45 RCC (Rec: 08/20/18 11:07 RCC [email or web address]) OP-PT Subjective Patient Comments Patient Comments Pt had a set back the night of 08/11/18 with increased R flank and abdominal pain. He presented to PT on 08/12/18 with this c/o pain, was hypertensive and unable to perform any activities that day. He was sent to the ER by PT and had a workup done which abdominal/pelvic CT was negative for acute findings. He states he took the prescribed muscle relaxors until Friday, has not had any since and pain is still present but not as severe in that region. PT-OP-E Functional Tests Start: 05/02/18 13:13 Freq: Status: Active Protocol: Document 05/29/18 14:30 RCC (Rec: 05/29/18 15:46 RCC [email or web address]) Functional Tests 6 Minute Walk Test Distance 862 Device Used none PT-OP-G Mobility & Gait Start: 05/02/18 13:13 Freq: Status: Active Protocol: Document 08/07/18 12:00 RCC (Rec: 08/07/18 15:09 RCC [email or web address]) OP Mobility Evaluation Bed Mobility Supine to and from Sit UE support required, slow movements d/t low back pain Transfers Sit to Stand requires UE assistance from low seat PT-OP-M Strength Start: 05/02/18 13:13 Freq: Status: Active Protocol: Document 08/19/18 13:45 RCC (Rec: 08/20/18 11:07 RCC [email or web address]) Hip Strength Hip Manual Muscle Testing Right Flexion (L2) 4 Good External Rotation 3+ Fair+ Internal Rotation 4+ Good+ Left Flexion (L2) 5 Normal External Rotation 3+ Fair+ Internal Rotation 4+ Good+ Knee Strength Knee Manual Muscle Testing Right Flexion (S2) 5 Normal Extension (L3) 5 Normal Left Flexion (S2) 4+ Good+ Extension (L3) 4+ Good+ Ankle/Foot Strength Ankle and Foot Manual Muscle Testing Right Dorsiflexion (L4) 4+ Good+ Left Dorsiflexion (L4) 4+ Good+ PT-OP-Q Treatments Start: 05/02/18 13:13 Freq: Status: Active Protocol: Document 08/19/18 13:45 RCC (Rec: 08/20/18 11:07 RCC [email or web address]) Cardio Equipment Recumbent Stepper (Sci-Fit) Duration (Minutes) 10 Resistance 4 Seat Position 16 Other 1.72 distance Therapeutic Exercises Sitting Exercises sidebend and rotation stretches Sitting Exercise Name gentle lumbar SB and rotation stretches to the L Side right Reps/Minutes 3x30 sec each Manual Therapy Treatment Soft Tissue Mobilization R psoas Body Location R iliopsoas Mobilization Type Myofascial Release Sustained Pressure Intensity/Depth Moderate Body Position Hooklying lumbar paraspinals and QL Mobilization Type Myofascial Release Rolling Intensity/Depth Moderate Body Position Sidelying Comments right Other Other Manual Treatments LE MMT PT-OP-R Modalities Start: 05/02/18 13:13 Freq: Status: Active Protocol: Document 08/07/18 12:00 RCC (Rec: 08/07/18 15:09 [facility] [email or web address]) Hot Pack/Cold Pack Treatment Cold Pack Location bilateral hip/buttock Patient Position Hooklying Treatment Duration (minutes) 10 Patient Tolerance Good Comments strap for compression PT-OP-T Assessment and Plan Start: 05/02/18 13:13 Freq: Status: Active Protocol: Document 08/19/18 13:45 RCC (Rec: 08/20/18 11:07 [facility] [email or web address]) Physical Therapy Assessment Goals 6 minute walk test Impairment 6 MWT- 862 ft Short Term Goal (STG) >1,000 ft with 6 Minute Walk Test to improve exercise tolerance and decrease risk for falls. *not tested 08/19/18 d/t new onset pain STG Duration 4 weeks [facility] Goal (LTG) >1,200 ft with 6 Minute Walk Test to improve exercise tolerance and decrease risk for falls. LTG Duration 8 weeks trail walking Impairment inability to walk on trails due to pain and fatigue Short Term Goal (STG) pt will walk outdoors on trails with bilateral walking sticks for 15 min, 3 days per week. *walking outdoors 2 days per week until this week d/t new onset pain 08/19/18 STG Duration 4 weeks [facility] Goal (LTG) pt will walk outdoors on trails with bilateral walking sticks for 30 min, 5 days per week as part of an indep. home program for exercise and cardiovascular benefits. LTG Duration 8 weeks LE strength Impairment LE weakness Short Term Goal (STG) 4/5 or greater LE strength with MMT to improve functional mobility and tolerance to stairs in community. *good progress- hip ER still < 4/5 with MMT but improved 08/19 STG Duration 4 weeks [facility] Goal (LTG) 4+/5 or greater LE strength with MMT to improve functional moblity and tolerance to stairs in community. LTG Duration 8 weeks Progress Towards Goals Progress Towards Goals Slow Progress due to Medical Issues Slow Progress - Other Progress Comments pt with new onset severe abdominal and R sided flank pain 1 week ago, significantly limiting progress this past week and unable to test 6 MWT due to pain today. Assessment Summary Assessment Pt with acute onset R sided flank and abdominal pain on , and he presented to the PT clinic with c/o of this pain. He was found to be hypertensive, therefore no PT interventions were performed on this date and took pt to the ED at [facility] for workup. CT of the abdomen and pelvis was negative for acute findings. His pain was less today, but still limited with his ability to participate in resistance training today as well as prolonged walking. His R iliopsoas presents with hypertonicity as well as his QL on the R. He tolerated manual therapy with improved standing posture after treatment. Due to this recent onset of pain, which is improving slowly, objective measurements were difficult to assess. Given these new findings, this pt will require further ongoing treatment and continued progression of his HEP to advance toward being able to tolerate level trail walking as well as improve his core and LE stability to decrease pain in low back and with daily standing and functional activities. Progress has been slow due to multiple co-morbidities, but pt is highly motivated and continues to be a good candidate for skilled physical therapy rehabilitation. Physical Therapy Plan Frequency and Duration Frequency of Treatment 2x/Week Duration of Treatment 8 weeks Plan of Care Start Date 08/19/18 Plan of Care End Date 10/14/18 Therapeutic Interventions Therapeutic Interventions Aquatic Therapy Balance Training Gait Training Home Exercise Program Manual Therapy Neuromuscular Re-education Orthotic/Prosthetic Management Patient/Caregiver Education Self-Care/Home Management Taping Therapeutic Activities Therapeutic Exercises Modalities Cold Pack/Ice Massage Electric Stimulation Hot Packs Ultrasound Next Visit Focus/Plan Next Note Type Treatment Note Next Visit Plan core stabilization (light initially), cont STR for R psoas and B low back and hip musculature
--- NOTE | 2018-08-21 09:45 | PT.OTN ---
Current Diagnoses Myositis, unspecified (08/21/18) Physical Therapy Treatment Note PT-OP-A Visit Information Start: 05/02/18 13:13 Freq: Status: Active Protocol: Document 08/21/18 09:45 [facility] (Rec: 08/21/18 11:37 [facility] [email or web address]) Out-Patient Physical Therapy Visit Information Visit Information Visit Type Treatment Note Visit Note last prog note written 08/19, visit 29 Visit Start Time 09:45 Visit Stop Time 10:29 Total Visit Minutes 44 Visit Number 30 Number of LANG PATH THERAPIST Visits 0 Evaluation Information Evaluation Date 05/01/18 PT-OP-B Current Condition Start: 05/02/18 13:13 Freq: Status: Active Protocol: Document 05/01/18 12:45 [facility] (Rec: 05/02/18 13:42 [facility] [email or web address]) Current Condition History of Current Condition Onset Date 2015 Current Complaints SOB, weakness, unable to ambulate for exercise, pain all over body History of Current Condition Pt is a 73 y/o male presenting to physical therapy with a c/ o weakness, SOB with activity, pain throughout the body and inability to walk outdoors for exercise. 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 He states that initially his weakness and loss of function gradually started in 2016 after his from cancer. Pt admits he would sit for 6-8 hours a day, doing nothing. He has a complex medical history (see below). Pt admits that now he is embarrassed to see what little exercise he can do now but is extremely motivated to get better. He has found a female partner which he would like to be able to walk outdoors on trails with. 2 years ago, he was able to walk about 2.5 miles using walking sticks/poles. Treatment Goals Patient/Caregiver Goals walk outdoors on trails for exercise (walking on pavement increases his arthritic pain). Prior Functional Status Baseline Function- Mobility Modified Independent Baseline Function- Gait modified indep with increased time to travel community distances Baseline Function- Recreation/Hobbies trail walking 2.5 miles with walking sticks (2 yrs ago) Current Functional Impairments (Reported) Functional Limitations- Mobility/Gait fatigue/SOB and increased pain with community ambulation Functional Limitations- Recreation/ unable to perform Hobbies Personal Factors Other Personal Factors That May Effect cardiac history with 2 stents Therapy/Recovery placed, OA, L popliteal artery surgery/reconstruction, h/o prostate CA with radiation (45 sessions), HTN, B MIGUEL, depression since 2016 ( of spouse), multiple back and knee surgeries. PT-OP-C Subjective Start: 05/02/18 13:13 Freq: Status: Active Protocol: Document 08/21/18 09:45 [facility] (Rec: 08/21/18 11:37 [facility] [email or web address]) OP-PT Subjective Patient Comments Patient Comments Pt notes that pain was still present but not as bad as it was after last session. He is sleeping better with a tumeric supplement before bed. PT-OP-E Functional Tests Start: 05/02/18 13:13 Freq: Status: Active Protocol: Document 05/29/18 14:30 RCC (Rec: 05/29/18 15:46 [facility] [email or web address]) Functional Tests 6 Minute Walk Test Distance 862 Device Used none PT-OP-F Manual Assessment Start: 08/21/18 11:30 Freq: Status: Active Protocol: Document 08/21/18 09:45 RCC (Rec: 08/21/18 11:37 [facility] [email or web address]) Manual Assessments Soft Tissue Assessment Soft Tissue Mobility Assessment mod tension R iliopsoas, QL PT-OP-G Mobility & Gait Start: 05/02/18 13:13 Freq: Status: Active Protocol: Document 08/07/18 12:00 RCC (Rec: 08/07/18 15:09 [facility] [email or web address]) OP Mobility Evaluation Bed Mobility Supine to and from Sit UE support required, slow movements d/t low back pain Transfers Sit to Stand requires UE assistance from low seat PT-OP-M Strength Start: 05/02/18 13:13 Freq: Status: Active Protocol: Document 08/19/18 13:45 RCC (Rec: 08/20/18 11:07 [facility] [email or web address]) Hip Strength Hip Manual Muscle Testing Right Flexion (L2) 4 Good External Rotation 3+ Fair+ Internal Rotation 4+ Good+ Left Flexion (L2) 5 Normal External Rotation 3+ Fair+ Internal Rotation 4+ Good+ Knee Strength Knee Manual Muscle Testing Right Flexion (S2) 5 Normal Extension (L3) 5 Normal Left Flexion (S2) 4+ Good+ Extension (L3) 4+ Good+ Ankle/Foot Strength Ankle and Foot Manual Muscle Testing Right Dorsiflexion (L4) 4+ Good+ Left Dorsiflexion (L4) 4+ Good+ PT-OP-Q Treatments Start: 05/02/18 13:13 Freq: Status: Active Protocol: Document 08/21/18 09:45 [facility] (Rec: 08/21/18 11:37 [facility] [email or web address]) Cardio Equipment Recumbent Stepper (Sci-Fit) Duration (Minutes) 10 Resistance 4 Seat Position 16 Other 1.79 distance Therapeutic Exercises Sidelying Exercises Transverse Abdominus Sidelying Exercise Name Isometric contraction Side bilateral Reps/Minutes 10x each Sitting Exercises sidebend and rotation stretches Sitting Exercise Name gentle lumbar SB and rotation stretches to the L Side right Reps/Minutes 3x30 sec each Manual Therapy Treatment Soft Tissue Mobilization R psoas Body Location R iliopsoas Mobilization Type Myofascial Release Sustained Pressure Intensity/Depth Moderate Body Position Hooklying Comments 16 min lumbar paraspinals and QL Mobilization Type Myofascial Release Rolling Intensity/Depth Moderate Body Position Sidelying Comments right; 17 min PT-OP-R Modalities Start: 05/02/18 13:13 Freq: Status: Active Protocol: Document 08/07/18 12:00 RCC (Rec: 08/07/18 15:09 [facility] [email or web address]) Hot Pack/Cold Pack Treatment Cold Pack Location bilateral hip/buttock Patient Position Hooklying Treatment Duration (minutes) 10 Patient Tolerance Good Comments strap for compression PT-OP-T Assessment and Plan Start: 05/02/18 13:13 Freq: Status: Active Protocol: Document 08/21/18 09:45 RCC (Rec: 08/21/18 11:37 [facility] [email or web address]) Physical Therapy Assessment Assessment Summary Assessment Pt with slightly less tension but still present throughout the lumbar spinal mm and QL, as well as the iliopsoas on the R. He did not require assistance log rolling today on the mat table and no c/o pain with sit<->stand from low seat. Physical Therapy Plan Frequency and Duration Frequency of Treatment 2x/Week Duration of Treatment 8 weeks Plan of Care Start Date 08/19/18 Plan of Care End Date 10/14/18 Next Visit Focus/Plan Next Note Type Treatment Note Next Visit Plan cont. to progress core as able , return to resisted training if tolerable
--- NOTE | 2018-08-26 13:45 | PT.OTN ---
Current Diagnoses Myositis, unspecified (08/26/18) Physical Therapy Treatment Note PT-OP-A Visit Information Start: 05/02/18 13:13 Freq: Status: Active Protocol: Document 08/26/18 13:45 [facility] (Rec: 08/26/18 14:45 [facility] [email or web address]) Out-Patient Physical Therapy Visit Information Visit Information Visit Type Treatment Note Visit Note last prog note written 08/19, visit 29 Visit Start Time 13:45 Visit Stop Time 14:30 Total Visit Minutes 45 Visit Number 31 Number of TAPE STRINGER Visits 0 Evaluation Information Evaluation Date 05/01/18 PT-OP-B Current Condition Start: 05/02/18 13:13 Freq: Status: Active Protocol: Document 05/01/18 12:45 [facility] (Rec: 05/02/18 13:42 [facility] [email or web address]) Current Condition History of Current Condition Onset Date 2015 Current Complaints SOB, weakness, unable to ambulate for exercise, pain all over body History of Current Condition Pt is a 73 y/o male presenting to physical therapy with a c/ o weakness, SOB with activity, pain throughout the body and inability to walk outdoors for exercise. 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 He states that initially his weakness and loss of function gradually started in 2015 after his from cancer. Pt admits he would sit for 6-8 hours a day, doing nothing. He has a complex medical history (see below). Pt admits that now he is embarrassed to see what little exercise he can do now but is extremely motivated to get better. He has found a female partner which he would like to be able to walk outdoors on trails with. 2 years ago, he was able to walk about 2.5 miles using walking sticks/poles. Treatment Goals Patient/Caregiver Goals walk outdoors on trails for exercise (walking on pavement increases his arthritic pain). Prior Functional Status Baseline Function- Mobility Modified Independent Baseline Function- Gait modified indep with increased time to travel community distances Baseline Function- Recreation/Hobbies trail walking 2.5 miles with walking sticks (2 yrs ago) Current Functional Impairments (Reported) Functional Limitations- Mobility/Gait fatigue/SOB and increased pain with community ambulation Functional Limitations- Recreation/ unable to perform Hobbies Personal Factors Other Personal Factors That May Effect cardiac history with 2 stents Therapy/Recovery placed, OA, L popliteal artery surgery/reconstruction, h/o prostate CA with radiation (45 sessions), HTN, B MIGUEL, depression since 2016 ( of spouse), multiple back and knee surgeries. PT-OP-C Subjective Start: 05/02/18 13:13 Freq: Status: Active Protocol: Document 08/26/18 13:45 RCC (Rec: 08/26/18 14:45 [facility] [email or web address]) OP-PT Subjective Patient Comments Patient Comments Pt states that he had R flank and back pain last weekend, but has noticed a good improvement for the past couple of days. He does feel like his posture and walking is getting back to where it was pre-injury. PT-OP-E Functional Tests Start: 05/02/18 13:13 Freq: Status: Active Protocol: Document 05/29/18 14:30 RCC (Rec: 05/29/18 15:46 [facility] [email or web address]) Functional Tests 6 Minute Walk Test Distance 862 Device Used none PT-OP-F Manual Assessment Start: 08/21/18 11:30 Freq: Status: Active Protocol: Document 08/26/18 13:45 RCC (Rec: 08/26/18 14:45 [facility] [email or web address]) Manual Assessments Soft Tissue Assessment Soft Tissue Mobility Assessment mild tension R iliopsoas, mod R QL PT-OP-G Mobility & Gait Start: 05/02/18 13:13 Freq: Status: Active Protocol: Document 08/07/18 12:00 RCC (Rec: 08/07/18 15:09 [facility] [email or web address]) OP Mobility Evaluation Bed Mobility Supine to and from Sit UE support required, slow movements d/t low back pain Transfers Sit to Stand requires UE assistance from low seat PT-OP-M Strength Start: 05/02/18 13:13 Freq: Status: Active Protocol: Document 08/19/18 13:45 RCC (Rec: 08/20/18 11:07 [facility] [email or web address]) Hip Strength Hip Manual Muscle Testing Right Flexion (L2) 4 Good External Rotation 3+ Fair+ Internal Rotation 4+ Good+ Left Flexion (L2) 5 Normal External Rotation 3+ Fair+ Internal Rotation 4+ Good+ Knee Strength Knee Manual Muscle Testing Right Flexion (S2) 5 Normal Extension (L3) 5 Normal Left Flexion (S2) 4+ Good+ Extension (L3) 4+ Good+ Ankle/Foot Strength Ankle and Foot Manual Muscle Testing Right Dorsiflexion (L4) 4+ Good+ Left Dorsiflexion (L4) 4+ Good+ PT-OP-Q Treatments Start: 05/02/18 13:13 Freq: Status: Active Protocol: Document 08/26/18 13:45 RCC (Rec: 08/26/18 14:45 [facility] [email or web address]) Cardio Equipment Recumbent Stepper (Sci-Fit) Duration (Minutes) 10 Resistance 4 Seat Position 16 Other 1.86 distance Therapeutic Exercises Standing Exercises QL stretch Standing Exercise Name @ standing bar Side bilateral Comments chair behind pt push ups Standing Exercise Name push ups using one bar Side bilateral Reps/Minutes x4 Comments VC back alignment heel cord stretch Standing Exercise Name heel cord stretch Side bilateral Equipment Used HOLLY Reps/Minutes 2x30 sec HS stretch Standing Exercise Name hamstring stretch Side bilateral Equipment Used stairs Reps/Minutes 2x30 sec Manual Therapy Treatment Soft Tissue Mobilization R psoas Body Location R iliopsoas Mobilization Type Myofascial Release Sustained Pressure Intensity/Depth Moderate Body Position Hooklying Comments 12 min lumbar paraspinals and QL Mobilization Type Myofascial Release Rolling Intensity/Depth Moderate Body Position Sidelying Comments right; 18 min PT-OP-R Modalities Start: 05/02/18 13:13 Freq: Status: Active Protocol: Document 08/07/18 12:00 RCC (Rec: 08/07/18 15:09 [facility] [email or web address]) Hot Pack/Cold Pack Treatment Cold Pack Location bilateral hip/buttock Patient Position Hooklying Treatment Duration (minutes) 10 Patient Tolerance Good Comments strap for compression PT-OP-T Assessment and Plan Start: 05/02/18 13:13 Freq: Status: Active Protocol: Document 08/26/18 13:45 RCC (Rec: 08/26/18 14:45 [facility] [email or web address]) Physical Therapy Assessment Assessment Summary Assessment Pt with less tension in R psoas today, but QL still with significant tension. Pt is able to perform sit<->supine with less pain and requires less time to perform these activities. Physical Therapy Plan Frequency and Duration Frequency of Treatment 2x/Week Duration of Treatment 8 weeks Plan of Care Start Date 08/19/18 Plan of Care End Date 10/14/18 Next Visit Focus/Plan Next Note Type Treatment Note Next Visit Plan return to lat pulldowns, bar push ups and gentle core and LE stability training as tolerated.
--- NOTE | 2018-08-28 09:45 | PT.OTN ---
Current Diagnoses Myositis, unspecified (08/28/18) Physical Therapy Treatment Note PT-OP-A Visit Information Start: 05/02/18 13:13 Freq: Status: Active Protocol: Document 08/28/18 09:45 RCC (Rec: 08/29/18 13:04 [facility] [email or web address]) Out-Patient Physical Therapy Visit Information Visit Information Visit Type Treatment Note Visit Note prog note 09/30 Visit Start Time 09:45 Visit Stop Time 10:30 Total Visit Minutes 45 Visit Number 32 Number of WINDOW SHADE ESTIMATOR Visits 0 Evaluation Information Evaluation Date 05/01/18 PT-OP-B Current Condition Start: 05/02/18 13:13 Freq: Status: Active Protocol: Document 05/01/18 12:45 RCC (Rec: 05/02/18 13:42 [facility] [email or web address]) Current Condition History of Current Condition Onset Date 2015 Current Complaints SOB, weakness, unable to ambulate for exercise, pain all over body History of Current Condition Pt is a 73 y/o male presenting to physical therapy with a c/ o weakness, SOB with activity, pain throughout the body and inability to walk outdoors for exercise. 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 He states that initially his weakness and loss of function gradually started in 2016 after his from cancer. Pt admits he would sit for 6-8 hours a day, doing nothing. He has a complex medical history (see below). Pt admits that now he is embarrassed to see what little exercise he can do now but is extremely motivated to get better. He has found a female partner which he would like to be able to walk outdoors on trails with. 2 years ago, he was able to walk about 2.5 miles using walking sticks/poles. Treatment Goals Patient/Caregiver Goals walk outdoors on trails for exercise (walking on pavement increases his arthritic pain). Prior Functional Status Baseline Function- Mobility Modified Independent Baseline Function- Gait modified indep with increased time to travel community distances Baseline Function- Recreation/Hobbies trail walking 2.5 miles with walking sticks (2 yrs ago) Current Functional Impairments (Reported) Functional Limitations- Mobility/Gait fatigue/SOB and increased pain with community ambulation Functional Limitations- Recreation/ unable to perform Hobbies Personal Factors Other Personal Factors That May Effect cardiac history with 2 stents Therapy/Recovery placed, OA, L popliteal artery surgery/reconstruction, h/o prostate CA with radiation (45 sessions), HTN, B MIGUEL, depression since 2016 ( of spouse), multiple back and knee surgeries. PT-OP-C Subjective Start: 05/02/18 13:13 Freq: Status: Active Protocol: Document 08/28/18 09:45 RCC (Rec: 08/29/18 13:04 [facility] [email or web address]) OP-PT Subjective Patient Comments Patient Comments Pt states he was sore after last session but is noticing that things are loosening up. PT-OP-E Functional Tests Start: 05/02/18 13:13 Freq: Status: Active Protocol: Document 05/29/18 14:30 RCC (Rec: 05/29/18 15:46 [facility] [email or web address]) Functional Tests 6 Minute Walk Test Distance 862 Device Used none PT-OP-F Manual Assessment Start: 08/21/18 11:30 Freq: Status: Active Protocol: Document 08/28/18 09:45 RCC (Rec: 08/29/18 13:04 [facility] [email or web address]) Manual Assessments Soft Tissue Assessment Soft Tissue Mobility Assessment mild tension R iliopsoas, mild R QL PT-OP-G Mobility & Gait Start: 05/02/18 13:13 Freq: Status: Active Protocol: Document 08/07/18 12:00 RCC (Rec: 08/07/18 15:09 [facility] [email or web address]) OP Mobility Evaluation Bed Mobility Supine to and from Sit UE support required, slow movements d/t low back pain Transfers Sit to Stand requires UE assistance from low seat PT-OP-M Strength Start: 05/02/18 13:13 Freq: Status: Active Protocol: Document 08/19/18 13:45 RCC (Rec: 08/20/18 11:07 [facility] [email or web address]) Hip Strength Hip Manual Muscle Testing Right Flexion (L2) 4 Good External Rotation 3+ Fair+ Internal Rotation 4+ Good+ Left Flexion (L2) 5 Normal External Rotation 3+ Fair+ Internal Rotation 4+ Good+ Knee Strength Knee Manual Muscle Testing Right Flexion (S2) 5 Normal Extension (L3) 5 Normal Left Flexion (S2) 4+ Good+ Extension (L3) 4+ Good+ Ankle/Foot Strength Ankle and Foot Manual Muscle Testing Right Dorsiflexion (L4) 4+ Good+ Left Dorsiflexion (L4) 4+ Good+ PT-OP-Q Treatments Start: 05/02/18 13:13 Freq: Status: Active Protocol: Document 08/28/18 09:45 RCC (Rec: 08/29/18 13:04 [facility] [email or web address]) Cardio Equipment Recumbent Stepper (Sci-Fit) Duration (Minutes) 10 Resistance 4 Seat Position 16 Other 2.02 distance Gym Equipment Cable Column (Body Solid) Rows Resistance 30# Reps/Time 2x20 Lat Pull Down Resistance 30# Reps/Time 2x20 Therapeutic Exercises Other Exercises heel/toe gait Side bilateral Equipment Used // bars Reps/Minutes 3 laps SLS Other Exercise Name single leg standing Side bilateral Reps/Minutes 2 min each Manual Therapy Treatment Soft Tissue Mobilization R psoas Body Location R iliopsoas Mobilization Type Myofascial Release Sustained Pressure Intensity/Depth Moderate Body Position Hooklying Comments 10 min lumbar paraspinals and QL Mobilization Type Myofascial Release Rolling Intensity/Depth Moderate Body Position Sidelying Comments right; 15 min PT-OP-R Modalities Start: 05/02/18 13:13 Freq: Status: Active Protocol: Document 08/07/18 12:00 RCC (Rec: 08/07/18 15:09 [facility] [email or web address]) Hot Pack/Cold Pack Treatment Cold Pack Location bilateral hip/buttock Patient Position Hooklying Treatment Duration (minutes) 10 Patient Tolerance Good Comments strap for compression PT-OP-T Assessment and Plan Start: 05/02/18 13:13 Freq: Status: Active Protocol: Document 08/28/18 09:45 RCC (Rec: 08/29/18 13:04 [facility] [email or web address]) Physical Therapy Assessment Assessment Summary Assessment Pt tolerated lat pull downs and row with lowered resistance without c/o pain today. His single leg standing balance is worse on the R when compared to the L, no crepitus today noted. Pt unable to perform heel to toe gait without using occasional UE support. Physical Therapy Plan Frequency and Duration Frequency of Treatment 2x/Week Duration of Treatment 8 weeks Plan of Care Start Date 08/19/18 Plan of Care End Date 10/14/18 Next Visit Focus/Plan Next Note Type Treatment Note Next Visit Plan return to resitance training as tolerated, progress sit<-> stand and gait.
--- NOTE | 2018-09-02 12:55 | PT.OTN ---
Current Diagnoses Myositis, unspecified (09/02/18) Physical Therapy Treatment Note PT-OP-A Visit Information Start: 05/02/18 13:13 Freq: Status: Active Protocol: Document 09/02/18 11:20 HH (Rec: 09/02/18 12:55 HH [email or web address]) Out-Patient Physical Therapy Visit Information Visit Information Visit Type Treatment Note Visit Start Time 11:20 Visit Stop Time 12:15 Total Visit Minutes 55 Visit Number 33 Number of SHORE WORKER Visits 0 Evaluation Information Evaluation Date 05/01/18 PT-OP-B Current Condition Start: 05/02/18 13:13 Freq: Status: Active Protocol: Document 05/01/18 12:45 RCC (Rec: 05/02/18 13:42 RCC [email or web address]) Current Condition History of Current Condition Onset Date 2015 Current Complaints SOB, weakness, unable to ambulate for exercise, pain all over body History of Current Condition Pt is a 73 y/o male presenting to physical therapy with a c/ o weakness, SOB with activity, pain throughout the body and inability to walk outdoors for exercise. 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 He states that initially his weakness and loss of function gradually started in 2015 after his from cancer. Pt admits he would sit for 6-8 hours a day, doing nothing. He has a complex medical history (see below). Pt admits that now he is embarrassed to see what little exercise he can do now but is extremely motivated to get better. He has found a female partner which he would like to be able to walk outdoors on trails with. 2 years ago, he was able to walk about 2.5 miles using walking sticks/poles. Treatment Goals Patient/Caregiver Goals walk outdoors on trails for exercise (walking on pavement increases his arthritic pain). Prior Functional Status Baseline Function- Mobility Modified Independent Baseline Function- Gait modified indep with increased time to travel community distances Baseline Function- Recreation/Hobbies trail walking 2.5 miles with walking sticks (2 yrs ago) Current Functional Impairments (Reported) Functional Limitations- Mobility/Gait fatigue/SOB and increased pain with community ambulation Functional Limitations- Recreation/ unable to perform Hobbies Personal Factors Other Personal Factors That May Effect cardiac history with 2 stents Therapy/Recovery placed, OA, L popliteal artery surgery/reconstruction, h/o prostate CA with radiation (45 sessions), HTN, B MIGUEL, depression since 2016 ( of spouse), multiple back and knee surgeries. PT-OP-C Subjective Start: 05/02/18 13:13 Freq: Status: Active Protocol: Document 09/02/18 11:20 HH (Rec: 09/02/18 12:55 HH [email or web address]) OP-PT Subjective Patient Comments Patient Comments Sore from last visit but felt really good since friday. But im disappointed how weak are my legs when i was climbing my little steps in my garage. Overall I've getting up and down easier than IE PT-OP-E Functional Tests Start: 05/02/18 13:13 Freq: Status: Active Protocol: Document 05/29/18 14:30 RCC (Rec: 05/29/18 15:46 RCC [email or web address]) Functional Tests 6 Minute Walk Test Distance 862 Device Used none PT-OP-F Manual Assessment Start: 08/21/18 11:30 Freq: Status: Active Protocol: Document 08/28/18 09:45 RCC (Rec: 08/29/18 13:04 RCC [email or web address]) Manual Assessments Soft Tissue Assessment Soft Tissue Mobility Assessment mild tension R iliopsoas, mild R QL PT-OP-G Mobility & Gait Start: 05/02/18 13:13 Freq: Status: Active Protocol: Document 08/07/18 12:00 RCC (Rec: 08/07/18 15:09 RCC [email or web address]) OP Mobility Evaluation Bed Mobility Supine to and from Sit UE support required, slow movements d/t low back pain Transfers Sit to Stand requires UE assistance from low seat PT-OP-M Strength Start: 05/02/18 13:13 Freq: Status: Active Protocol: Document 08/19/18 13:45 RCC (Rec: 08/20/18 11:07 RCC [email or web address]) Hip Strength Hip Manual Muscle Testing Right Flexion (L2) 4 Good External Rotation 3+ Fair+ Internal Rotation 4+ Good+ Left Flexion (L2) 5 Normal External Rotation 3+ Fair+ Internal Rotation 4+ Good+ Knee Strength Knee Manual Muscle Testing Right Flexion (S2) 5 Normal Extension (L3) 5 Normal Left Flexion (S2) 4+ Good+ Extension (L3) 4+ Good+ Ankle/Foot Strength Ankle and Foot Manual Muscle Testing Right Dorsiflexion (L4) 4+ Good+ Left Dorsiflexion (L4) 4+ Good+ PT-OP-Q Treatments Start: 05/02/18 13:13 Freq: Status: Active Protocol: Document 09/02/18 11:20 HH (Rec: 09/02/18 12:55 HH [email or web address]) Cardio Equipment Recumbent Stepper (Sci-Fit) Duration (Minutes) 5 Resistance 8-15 Seat Position 16 Other RPM 35-45, peak at R 15 then drop down to 8 Therapeutic Exercises Supine Exercises supine hip wipers Supine Exercise Name hip wipers Comments end range side to side Sitting Exercises seated flexion Sitting Exercise Name floor touch Comments wide hip Standing Exercises standing pelvic tilt Equipment Used UE on grab bar sit to stand with hip hinge Standing Exercise Name rocking sit to stand Equipment Used from low chair to reg chair Reps/Minutes 3 x2 Comments use trunk rocking motion to facilitate hip hinge squat with UE support Standing Exercise Name slow squat without touching chair Equipment Used UE on treadmill bar Reps/Minutes 6 x 3 Manual Therapy Treatment Soft Tissue Mobilization R psoas Body Location R iliopsoas Mobilization Type Myofascial Release Sustained Pressure Intensity/Depth Moderate Body Position Hooklying Comments 10 min lumbar paraspinals and QL Mobilization Type Myofascial Release Rolling Intensity/Depth Moderate Body Position Sidelying Comments right; 15 min Neuro Re-Education Treatment Balance Activities tennis ball catch Details walking tennis ball catch and throw Equipment tennis ball Comments foward and backward walking with knee bent PT-OP-R Modalities Start: 05/02/18 13:13 Freq: Status: Active Protocol: Document 08/07/18 12:00 RCC (Rec: 08/07/18 15:09 RCC [email or web address]) Hot Pack/Cold Pack Treatment Cold Pack Location bilateral hip/buttock Patient Position Hooklying Treatment Duration (minutes) 10 Patient Tolerance Good Comments strap for compression PT-OP-T Assessment and Plan Start: 05/02/18 13:13 Freq: Status: Active Protocol: Document 09/02/18 11:20 HH (Rec: 09/02/18 12:55 HH [email or web address]) Physical Therapy Assessment Assessment Summary Assessment Pt ericka tx well with increased activity tolerance. Educated pt to use trunk rocking motion and hip hinge for sit to stand. Super slow squat for quad strengthening. Pt stated his RPE 6-7 for this session, as the stepper is the most challenging due to its cardio component Physical Therapy Plan Frequency and Duration Frequency of Treatment 2x/Week Duration of Treatment 8 weeks Plan of Care Start Date 08/19/18 Plan of Care End Date 10/14/18 Next Visit Focus/Plan Next Note Type Treatment Note Next Visit Plan monitor pt's RPE return to resitance training as tolerated, progress sit<-> stand and gait.
--- NOTE | 2018-09-04 13:24 | PT.OTN ---
Current Diagnoses Myositis, unspecified (09/04/18) Physical Therapy Treatment Note PT-OP-A Visit Information Start: 05/02/18 13:13 Freq: Status: Active Protocol: Document 09/04/18 11:15 GGD (Rec: 09/04/18 13:24 GGD [email or web address]) Out-Patient Physical Therapy Visit Information Visit Information Visit Type Treatment Note Visit Start Time 11:15 Visit Stop Time 12:00 Total Visit Minutes 45 Visit Number 34 Number of MUSIC MANAGER Visits 1 Evaluation Information Evaluation Date 05/01/18 PT-OP-B Current Condition Start: 05/02/18 13:13 Freq: Status: Active Protocol: Document 05/01/18 12:45 RCC (Rec: 05/02/18 13:42 RCC [email or web address]) Current Condition History of Current Condition Onset Date 2015 Current Complaints SOB, weakness, unable to ambulate for exercise, pain all over body History of Current Condition Pt is a 73 y/o male presenting to physical therapy with a c/ o weakness, SOB with activity, pain throughout the body and inability to walk outdoors for exercise. 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 He states that initially his weakness and loss of function gradually started in 2015 after his from cancer. Pt admits he would sit for 6-8 hours a day, doing nothing. He has a complex medical history (see below). Pt admits that now he is embarrassed to see what little exercise he can do now but is extremely motivated to get better. He has found a female partner which he would like to be able to walk outdoors on trails with. 2 years ago, he was able to walk about 2.5 miles using walking sticks/poles. Treatment Goals Patient/Caregiver Goals walk outdoors on trails for exercise (walking on pavement increases his arthritic pain). Prior Functional Status Baseline Function- Mobility Modified Independent Baseline Function- Gait modified indep with increased time to travel community distances Baseline Function- Recreation/Hobbies trail walking 2.5 miles with walking sticks (2 yrs ago) Current Functional Impairments (Reported) Functional Limitations- Mobility/Gait fatigue/SOB and increased pain with community ambulation Functional Limitations- Recreation/ unable to perform Hobbies Personal Factors Other Personal Factors That May Effect cardiac history with 2 stents Therapy/Recovery placed, OA, L popliteal artery surgery/reconstruction, h/o prostate CA with radiation (45 sessions), HTN, B MIGUEL, depression since 2016 ( of spouse), multiple back and knee surgeries. PT-OP-C Subjective Start: 05/02/18 13:13 Freq: Status: Active Protocol: Document 09/04/18 11:15 GGD (Rec: 09/04/18 13:24 GGD [email or web address]) OP-PT Subjective Patient Comments Patient Comments Pt states his knees and legs are sore from exercise last visit. PT-OP-E Functional Tests Start: 05/02/18 13:13 Freq: Status: Active Protocol: Document 05/29/18 14:30 RCC (Rec: 05/29/18 15:46 RCC [email or web address]) Functional Tests 6 Minute Walk Test Distance 862 Device Used none PT-OP-F Manual Assessment Start: 08/21/18 11:30 Freq: Status: Active Protocol: Document 08/28/18 09:45 RCC (Rec: 08/29/18 13:04 RCC [email or web address]) Manual Assessments Soft Tissue Assessment Soft Tissue Mobility Assessment mild tension R iliopsoas, mild R QL PT-OP-G Mobility & Gait Start: 05/02/18 13:13 Freq: Status: Active Protocol: Document 08/07/18 12:00 RCC (Rec: 08/07/18 15:09 RCC [email or web address]) OP Mobility Evaluation Bed Mobility Supine to and from Sit UE support required, slow movements d/t low back pain Transfers Sit to Stand requires UE assistance from low seat PT-OP-M Strength Start: 05/02/18 13:13 Freq: Status: Active Protocol: Document 08/19/18 13:45 RCC (Rec: 08/20/18 11:07 RCC [email or web address]) Hip Strength Hip Manual Muscle Testing Right Flexion (L2) 4 Good External Rotation 3+ Fair+ Internal Rotation 4+ Good+ Left Flexion (L2) 5 Normal External Rotation 3+ Fair+ Internal Rotation 4+ Good+ Knee Strength Knee Manual Muscle Testing Right Flexion (S2) 5 Normal Extension (L3) 5 Normal Left Flexion (S2) 4+ Good+ Extension (L3) 4+ Good+ Ankle/Foot Strength Ankle and Foot Manual Muscle Testing Right Dorsiflexion (L4) 4+ Good+ Left Dorsiflexion (L4) 4+ Good+ PT-OP-Q Treatments Start: 05/02/18 13:13 Freq: Status: Active Protocol: Document 09/04/18 11:15 GGD (Rec: 09/04/18 13:24 GGD [email or web address]) Cardio Equipment Recumbent Stepper (Sci-Fit) Duration (Minutes) 10 Resistance 4 Seat Position 16 Other 1.73 distance Therapeutic Exercises Supine Exercises SLR- hip flexion Side bilateral Reps/Minutes 2x5 Comments lift 6 Standing Exercises step ups Standing Exercise Name step ups Side bilateral Resistance 6 inch step Reps/Minutes 5 sit to stand with hip hinge Standing Exercise Name sit to stand Equipment Used mat table Reps/Minutes 3 x2 heel cord stretch Standing Exercise Name heel cord stretch Side bilateral Equipment Used HOLLY Reps/Minutes 2x30 sec HS stretch Standing Exercise Name hamstring stretch Side bilateral Equipment Used stairs Reps/Minutes 2x30 sec Manual Therapy Treatment Soft Tissue Mobilization R psoas Body Location R iliopsoas Mobilization Type Myofascial Release Sustained Pressure Intensity/Depth Moderate Body Position Hooklying Comments 10 min lumbar paraspinals and QL Mobilization Type Myofascial Release Rolling Intensity/Depth Moderate Body Position Sidelying Comments right; 15 min PT-OP-R Modalities Start: 05/02/18 13:13 Freq: Status: Active Protocol: Document 08/07/18 12:00 RCC (Rec: 08/07/18 15:09 RCC [email or web address]) Hot Pack/Cold Pack Treatment Cold Pack Location bilateral hip/buttock Patient Position Hooklying Treatment Duration (minutes) 10 Patient Tolerance Good Comments strap for compression PT-OP-T Assessment and Plan Start: 05/02/18 13:13 Freq: Status: Active Protocol: Document 09/04/18 11:15 GGD (Rec: 09/04/18 13:24 GGD [email or web address]) Physical Therapy Assessment Goals 6 minute walk test Impairment 6 MWT- 862 ft Short Term Goal (STG) >1,000 ft with 6 Minute Walk Test to improve exercise tolerance and decrease risk for falls. *not tested 08/19/18 d/t new onset pain STG Duration 4 weeks Half-Way Goal (LTG) >1,200 ft with 6 Minute Walk Test to improve exercise tolerance and decrease risk for falls. LTG Duration 8 weeks trail walking Impairment inability to walk on trails due to pain and fatigue Short Term Goal (STG) pt will walk outdoors on trails with bilateral walking sticks for 15 min, 3 days per week. 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 home program for exercise and cardiovascular benefits. LTG Duration 8 weeks LE strength Impairment LE weakness Short Term Goal (STG) 4/5 or greater LE strength with MMT to improve functional mobility and tolerance to stairs in community. *good progress- hip ER still < 4/5 with MMT but improved 08/19 STG Duration 4 weeks Half-Way Goal (LTG) 4+/5 or greater LE strength with MMT to improve functional moblity and tolerance to stairs in community. LTG Duration 8 weeks Assessment Summary Assessment Pt had decrease pain with treatment. He did tolerate sit to stands from higher surface and decrease reps. HE need cues for exercise technique. Physical Therapy Plan Frequency and Duration Frequency of Treatment 2x/Week Duration of Treatment 8 weeks Plan of Care Start Date 08/19/18 Plan of Care End Date 10/14/18 Next Visit Focus/Plan Next Note Type Treatment Note Next Visit Plan return to resistance training as tolerated, progress sit<-> stand and gait.
--- NOTE | 2018-09-09 13:06 | PT.OTN ---
Current Diagnoses Myositis, unspecified (09/09/18) Physical Therapy Treatment Note PT-OP-A Visit Information Start: 05/02/18 13:13 Freq: Status: Active Protocol: Document 09/09/18 12:05 HH (Rec: 09/09/18 13:06 HH [email or web address]) Out-Patient Physical Therapy Visit Information Visit Information Visit Type Treatment Note Visit Start Time 12:05 Visit Stop Time 12:55 Total Visit Minutes 50 Visit Number 35 Number of GAME MODERATOR Visits 0 PT-OP-B Current Condition Start: 05/02/18 13:13 Freq: Status: Active Protocol: Document 05/01/18 12:45 RCC (Rec: 05/02/18 13:42 RCC [email or web address]) Current Condition History of Current Condition Onset Date 2015 Current Complaints SOB, weakness, unable to ambulate for exercise, pain all over body History of Current Condition Pt is a 73 y/o male presenting to physical therapy with a c/ o weakness, SOB with activity, pain throughout the body and inability to walk outdoors for exercise. 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 He states that initially his weakness and loss of function gradually started in 2015 after his from cancer. Pt admits he would sit for 6-8 hours a day, doing nothing. He has a complex medical history (see below). Pt admits that now he is embarrassed to see what little exercise he can do now but is extremely motivated to get better. He has found a female partner which he would like to be able to walk outdoors on trails with. 2 years ago, he was able to walk about 2.5 miles using walking sticks/poles. Treatment Goals Patient/Caregiver Goals walk outdoors on trails for exercise (walking on pavement increases his arthritic pain). Prior Functional Status Baseline Function- Mobility Modified Independent Baseline Function- Gait modified indep with increased time to travel community distances Baseline Function- Recreation/Hobbies trail walking 2.5 miles with walking sticks (2 yrs ago) Current Functional Impairments (Reported) Functional Limitations- Mobility/Gait fatigue/SOB and increased pain with community ambulation Functional Limitations- Recreation/ unable to perform Hobbies Personal Factors Other Personal Factors That May Effect cardiac history with 2 stents Therapy/Recovery placed, OA, L popliteal artery surgery/reconstruction, h/o prostate CA with radiation (45 sessions), HTN, B MIGUEL, depression since 2016 ( of spouse), multiple back and knee surgeries. PT-OP-C Subjective Start: 05/02/18 13:13 Freq: Status: Active Protocol: Document 09/09/18 12:05 HH (Rec: 09/09/18 13:06 HH [email or web address]) OP-PT Subjective Patient Comments Patient Comments Im quite sore today after cleaning up in the garage. I think i could do more than before now. PT-OP-E Functional Tests Start: 05/02/18 13:13 Freq: Status: Active Protocol: Document 05/29/18 14:30 RCC (Rec: 05/29/18 15:46 RCC [email or web address]) Functional Tests 6 Minute Walk Test Distance 862 Device Used none PT-OP-F Manual Assessment Start: 08/21/18 11:30 Freq: Status: Active Protocol: Document 08/28/18 09:45 RCC (Rec: 08/29/18 13:04 RCC [email or web address]) Manual Assessments Soft Tissue Assessment Soft Tissue Mobility Assessment mild tension R iliopsoas, mild R QL PT-OP-G Mobility & Gait Start: 05/02/18 13:13 Freq: Status: Active Protocol: Document 08/07/18 12:00 RCC (Rec: 08/07/18 15:09 RCC [email or web address]) OP Mobility Evaluation Bed Mobility Supine to and from Sit UE support required, slow movements d/t low back pain Transfers Sit to Stand requires UE assistance from low seat PT-OP-M Strength Start: 05/02/18 13:13 Freq: Status: Active Protocol: Document 08/19/18 13:45 RCC (Rec: 08/20/18 11:07 RCC [email or web address]) Hip Strength Hip Manual Muscle Testing Right Flexion (L2) 4 Good External Rotation 3+ Fair+ Internal Rotation 4+ Good+ Left Flexion (L2) 5 Normal External Rotation 3+ Fair+ Internal Rotation 4+ Good+ Knee Strength Knee Manual Muscle Testing Right Flexion (S2) 5 Normal Extension (L3) 5 Normal Left Flexion (S2) 4+ Good+ Extension (L3) 4+ Good+ Ankle/Foot Strength Ankle and Foot Manual Muscle Testing Right Dorsiflexion (L4) 4+ Good+ Left Dorsiflexion (L4) 4+ Good+ PT-OP-Q Treatments Start: 11/10/18 13:13 Freq: Status: Active Protocol: Document 09/09/18 12:05 HH (Rec: 09/09/18 13:06 HH [email or web address]) Cardio Equipment Recumbent Stepper (Sci-Fit) Duration (Minutes) 7 Resistance 6 Seat Position 16 Other RPM 35-45 Therapeutic Exercises Standing Exercises step ups Standing Exercise Name step ups Side bilateral Resistance 6 inch step Reps/Minutes 5 standing pelvic tilt Equipment Used UE on grab bar Reps/Minutes 15 x 2 Comments cues for glute engagement Other Exercises SLS Other Exercise Name single leg standing Side bilateral Reps/Minutes 5 secs each x 5mins Neuro Re-Education Treatment Balance Activities slow walking Surface level Equipment within //bar Reps/Duration 8 mins Comments slow walking to facilitate SLS tennis ball catch Details walking tennis ball catch and throw Equipment tennis ball Comments foward and backward walking with knee bent PT-OP-R Modalities Start: 05/02/18 13:13 Freq: Status: Active Protocol: Document 08/07/18 12:00 RCC (Rec: 08/07/18 15:09 RCC [email or web address]) Hot Pack/Cold Pack Treatment Cold Pack Location bilateral hip/buttock Patient Position Hooklying Treatment Duration (minutes) 10 Patient Tolerance Good Comments strap for compression PT-OP-T Assessment and Plan Start: 05/02/18 13:13 Freq: Status: Active Protocol: Document 09/09/18 12:05 (Rec: 09/09/18 13:06 [email or web address]) Physical Therapy Assessment Goals Stair climbing Longterm Goal (LTG) climb stair without holding railings x 4 steps x2 LTG Duration 8 weeks Assessment Summary Assessment RPE for session 5/10 average. Single leg balance activites and stepper are most challenging. Pt demonstrated anxiety of doing stairs without railings. stated I think i have the strength but do not feel confident. Physical Therapy Plan Next Visit Focus/Plan Next Note Type Treatment Note Next Visit Plan resistive training as ericka single leg balance activities stair climbing as ericka
--- NOTE | 2018-09-11 13:08 | PT.OTN ---
Current Diagnoses Myositis, unspecified (09/11/18) Physical Therapy Treatment Note PT-OP-A Visit Information Start: 05/02/18 13:13 Freq: Status: Active Protocol: Document 09/11/18 12:00 HH (Rec: 09/11/18 13:08 HH [email or web address]) Out-Patient Physical Therapy Visit Information Visit Information Visit Type Treatment Note Visit Start Time 12:00 Visit Stop Time 12:45 Total Visit Minutes 45 Visit Number 36 Number of PSYCH COORDINATOR Visits 0 PT-OP-B Current Condition Start: 05/02/18 13:13 Freq: Status: Active Protocol: Document 05/01/18 12:45 RCC (Rec: 05/02/18 13:42 RCC [email or web address]) Current Condition History of Current Condition Onset Date 2015 Current Complaints SOB, weakness, unable to ambulate for exercise, pain all over body History of Current Condition Pt is a 73 y/o male presenting to physical therapy with a c/ o weakness, SOB with activity, pain throughout the body and inability to walk outdoors for exercise. 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 He states that initially his weakness and loss of function gradually started in 2015 after his from cancer. Pt admits he would sit for 6-8 hours a day, doing nothing. He has a complex medical history (see below). Pt admits that now he is embarrassed to see what little exercise he can do now but is extremely motivated to get better. He has found a female partner which he would like to be able to walk outdoors on trails with. 2 years ago, he was able to walk about 2.5 miles using walking sticks/poles. Treatment Goals Patient/Caregiver Goals walk outdoors on trails for exercise (walking on pavement increases his arthritic pain). Prior Functional Status Baseline Function- Mobility Modified Independent Baseline Function- Gait modified indep with increased time to travel community distances Baseline Function- Recreation/Hobbies trail walking 2.5 miles with walking sticks (2 yrs ago) Current Functional Impairments (Reported) Functional Limitations- Mobility/Gait fatigue/SOB and increased pain with community ambulation Functional Limitations- Recreation/ unable to perform Hobbies Personal Factors Other Personal Factors That May Effect cardiac history with 2 stents Therapy/Recovery placed, OA, L popliteal artery surgery/reconstruction, h/o prostate CA with radiation (45 sessions), HTN, B MIGUEL, depression since 2016 ( of spouse), multiple back and knee surgeries. PT-OP-C Subjective Start: 05/02/18 13:13 Freq: Status: Active Protocol: Document 09/11/18 12:00 HH (Rec: 09/11/18 13:08 HH [email or web address]) OP-PT Subjective Patient Comments Patient Comments My back is very sore after last visit and my back has spasm. I want to decrease my exercises intensity. PT-OP-E Functional Tests Start: 05/02/18 13:13 Freq: Status: Active Protocol: Document 05/29/18 14:30 RCC (Rec: 05/29/18 15:46 RCC [email or web address]) Functional Tests 6 Minute Walk Test Distance 862 Device Used none PT-OP-F Manual Assessment Start: 08/21/18 11:30 Freq: Status: Active Protocol: Document 08/28/18 09:45 RCC (Rec: 08/29/18 13:04 RCC [email or web address]) Manual Assessments Soft Tissue Assessment Soft Tissue Mobility Assessment mild tension R iliopsoas, mild R QL PT-OP-G Mobility & Gait Start: 05/02/18 13:13 Freq: Status: Active Protocol: Document 08/07/18 12:00 RCC (Rec: 08/07/18 15:09 RCC [email or web address]) OP Mobility Evaluation Bed Mobility Supine to and from Sit UE support required, slow movements d/t low back pain Transfers Sit to Stand requires UE assistance from low seat PT-OP-M Strength Start: 05/02/18 13:13 Freq: Status: Active Protocol: Document 08/19/18 13:45 RCC (Rec: 08/20/18 11:07 RCC [email or web address]) Hip Strength Hip Manual Muscle Testing Right Flexion (L2) 4 Good External Rotation 3+ Fair+ Internal Rotation 4+ Good+ Left Flexion (L2) 5 Normal External Rotation 3+ Fair+ Internal Rotation 4+ Good+ Knee Strength Knee Manual Muscle Testing Right Flexion (S2) 5 Normal Extension (L3) 5 Normal Left Flexion (S2) 4+ Good+ Extension (L3) 4+ Good+ Ankle/Foot Strength Ankle and Foot Manual Muscle Testing Right Dorsiflexion (L4) 4+ Good+ Left Dorsiflexion (L4) 4+ Good+ PT-OP-Q Treatments Start: 11/10/18 13:13 Freq: Status: Active Protocol: Document 09/11/18 12:00 HH (Rec: 09/11/18 13:08 HH [email or web address]) Cardio Equipment Recumbent Stepper (Sci-Fit) Duration (Minutes) 7 Resistance 6 Seat Position 16 Other RPM 35-45 Gym Equipment Shuttle Recovery Unilateral Squats Details push with heels Resistance 32 Shuttle Recovery Platform Stable Reps/Time 10 x2 Bilateral Squats Details push with heels Resistance 87 Shuttle Recovery Platform Stable Reps/Time 10 x2 Therapeutic Exercises Sitting Exercises seated flexion Sitting Exercise Name floor touch Side bilateral Comments wide hip, knee extended Standing Exercises step ups Standing Exercise Name step ups Side bilateral Resistance 6 inch step Reps/Minutes 5x 4 Comments without UE support PT-OP-R Modalities Start: 05/02/18 13:13 Freq: Status: Active Protocol: Document 08/07/18 12:00 RCC (Rec: 08/07/18 15:09 RCC [email or web address]) Hot Pack/Cold Pack Treatment Cold Pack Location bilateral hip/buttock Patient Position Hooklying Treatment Duration (minutes) 10 Patient Tolerance Good Comments strap for compression PT-OP-T Assessment and Plan Start: 05/02/18 13:13 Freq: Status: Active Protocol: Document 09/11/18 12:00 HH (Rec: 09/11/18 13:08 HH [email or web address]) Physical Therapy Assessment Assessment Summary Assessment RPE for session 5/10 average. step up activities and stepper are most challenging. Pt demonstrated anxiety of doing stairs without railings. Pt tends to get agitated as ex intensity increase. Physical Therapy Plan Next Visit Focus/Plan Next Note Type Treatment Note Next Visit Plan resistive training as ericka single leg balance activities stair climbing as ericka
--- NOTE | 2018-09-16 12:00 | PT.OTN ---
Current Diagnoses Myositis, unspecified (09/16/18) Physical Therapy Treatment Note PT-OP-A Visit Information Start: 05/02/18 13:13 Freq: Status: Active Protocol: Document 09/16/18 12:00 RCC (Rec: 09/16/18 13:41 RCC [email or web address]) Out-Patient Physical Therapy Visit Information Visit Information Visit Type Treatment Note Visit Start Time 12:00 Visit Stop Time 12:45 Total Visit Minutes 45 Visit Number 37 Number of TAXI CAB DRIVER Visits 0 Evaluation Information Evaluation Date 05/01/18 PT-OP-B Current Condition Start: 05/02/18 13:13 Freq: Status: Active Protocol: Document 05/01/18 12:45 RCC (Rec: 05/02/18 13:42 RCC [email or web address]) Current Condition History of Current Condition Onset Date 2015 Current Complaints SOB, weakness, unable to ambulate for exercise, pain all over body History of Current Condition Pt is a 73 y/o male presenting to physical therapy with a c/ o weakness, SOB with activity, pain throughout the body and inability to walk outdoors for exercise. 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 He states that initially his weakness and loss of function gradually started in 2015 after his from cancer. Pt admits he would sit for 6-8 hours a day, doing nothing. He has a complex medical history (see below). Pt admits that now he is embarrassed to see what little exercise he can do now but is extremely motivated to get better. He has found a female partner which he would like to be able to walk outdoors on trails with. 2 years ago, he was able to walk about 2.5 miles using walking sticks/poles. Treatment Goals Patient/Caregiver Goals walk outdoors on trails for exercise (walking on pavement increases his arthritic pain). Prior Functional Status Baseline Function- Mobility Modified Independent Baseline Function- Gait modified indep with increased time to travel community distances Baseline Function- Recreation/Hobbies trail walking 2.5 miles with walking sticks (2 yrs ago) Current Functional Impairments (Reported) Functional Limitations- Mobility/Gait fatigue/SOB and increased pain with community ambulation Functional Limitations- Recreation/ unable to perform Hobbies Personal Factors Other Personal Factors That May Effect cardiac history with 2 stents Therapy/Recovery placed, OA, L popliteal artery surgery/reconstruction, h/o prostate CA with radiation (45 sessions), HTN, B MIGUEL, depression since 2016 ( of spouse), multiple back and knee surgeries. PT-OP-C Subjective Start: 05/02/18 13:13 Freq: Status: Active Protocol: Document 09/16/18 12:00 RCC (Rec: 09/16/18 13:41 RCC [email or web address]) OP-PT Subjective Patient Comments Patient Comments Charles states that his BP has been elevated for 2 weeks, his doctor put him on Amlodipine which has lowered his BP well. He c/o B quad achiness, R>L. PT-OP-E Functional Tests Start: 05/02/18 13:13 Freq: Status: Active Protocol: Document 05/29/18 14:30 RCC (Rec: 05/29/18 15:46 RCC [email or web address]) Functional Tests 6 Minute Walk Test Distance 862 Device Used none PT-OP-F Manual Assessment Start: 08/21/18 11:30 Freq: Status: Active Protocol: Document 08/28/18 09:45 RCC (Rec: 08/29/18 13:04 RCC [email or web address]) Manual Assessments Soft Tissue Assessment Soft Tissue Mobility Assessment mild tension R iliopsoas, mild R QL PT-OP-G Mobility & Gait Start: 05/02/18 13:13 Freq: Status: Active Protocol: Document 08/07/18 12:00 RCC (Rec: 08/07/18 15:09 RCC [email or web address]) OP Mobility Evaluation Bed Mobility Supine to and from Sit UE support required, slow movements d/t low back pain Transfers Sit to Stand requires UE assistance from low seat PT-OP-M Strength Start: 05/02/18 13:13 Freq: Status: Active Protocol: Document 08/19/18 13:45 RCC (Rec: 08/20/18 11:07 RCC [email or web address]) Hip Strength Hip Manual Muscle Testing Right Flexion (L2) 4 Good External Rotation 3+ Fair+ Internal Rotation 4+ Good+ Left Flexion (L2) 5 Normal External Rotation 3+ Fair+ Internal Rotation 4+ Good+ Knee Strength Knee Manual Muscle Testing Right Flexion (S2) 5 Normal Extension (L3) 5 Normal Left Flexion (S2) 4+ Good+ Extension (L3) 4+ Good+ Ankle/Foot Strength Ankle and Foot Manual Muscle Testing Right Dorsiflexion (L4) 4+ Good+ Left Dorsiflexion (L4) 4+ Good+ PT-OP-Q Treatments Start: 05/02/18 13:13 Freq: Status: Active Protocol: Document 09/16/18 12:00 [facility] (Rec: 09/16/18 13:41 [facility] [email or web address]) Cardio Equipment Recumbent Stepper (Sci-Fit) Duration (Minutes) 10 Resistance 4 Seat Position 16 Other 1.83 distance Therapeutic Exercises Supine Exercises hip flexor stretch Supine Exercise Name psoas and rectus femoris stretch Side bilateral Reps/Minutes 2 each Comments LE off EOB Standing Exercises lunges Standing Exercise Name partial lunge with // bars Side bilateral Reps/Minutes 10 each step ups Standing Exercise Name step ups Side bilateral Resistance 6 inch step Reps/Minutes 5x 4 Comments without UE support sit to stand with hip hinge Standing Exercise Name sit to stand Equipment Used mat table Reps/Minutes 3 x2 push ups Standing Exercise Name push ups using one bar Side bilateral Reps/Minutes x8 Comments VC back alignment heel cord stretch Standing Exercise Name heel cord stretch Side bilateral Equipment Used HOLLY Reps/Minutes 2x30 sec HS stretch Standing Exercise Name hamstring stretch Side bilateral Equipment Used stairs Reps/Minutes 2x30 sec Manual Therapy Treatment Soft Tissue Mobilization lumbar paraspinals and QL Mobilization Type Myofascial Release Rolling Intensity/Depth Moderate Body Position Sidelying Comments bilateral; 20 min PT-OP-R Modalities Start: 05/02/18 13:13 Freq: Status: Active Protocol: Document 08/07/18 12:00 [facility] (Rec: 08/07/18 15:09 [facility] [email or web address]) Hot Pack/Cold Pack Treatment Cold Pack Location bilateral hip/buttock Patient Position Hooklying Treatment Duration (minutes) 10 Patient Tolerance Good Comments strap for compression PT-OP-T Assessment and Plan Start: 05/02/18 13:13 Freq: Status: Active Protocol: Document 09/16/18 12:00 [facility] (Rec: 09/16/18 13:41 [facility] [email or web address]) Physical Therapy Assessment Assessment Summary Assessment Pt's BP 132/78 prior to treatment today and tolerated exercise well. Pt without severe increase in low back pain this session, and was able to perform STS with hip hinging to assist with coordinated movement. Physical Therapy Plan Frequency and Duration Frequency of Treatment 2x/Week Duration of Treatment 8 weeks Plan of Care Start Date 08/19/18 Plan of Care End Date 10/14/18 Next Visit Focus/Plan Next Note Type Treatment Note Next Visit Plan gentle progression of standing and resitance training (pt with flare up in pain with increased activity last week); yellow band resisted lateral walking, cont. partial lunges in // bars
--- NOTE | 2018-09-18 13:17 | PT.OTN ---
Current Diagnoses Myositis, unspecified (09/18/18) Physical Therapy Treatment Note PT-OP-A Visit Information Start: 05/02/18 13:13 Freq: Status: Active Protocol: Document 09/18/18 13:06 SA (Rec: 09/18/18 13:17 SA [email or web address]) Out-Patient Physical Therapy Visit Information Visit Information Visit Type Treatment Note Visit Start Time 12:15 Visit Stop Time 13:01 Total Visit Minutes 46 Visit Number 38 Number of CLINICAL DATA ABSTRACTOR Visits 1 PT-OP-B Current Condition Start: 05/02/18 13:13 Freq: Status: Active Protocol: Document 05/01/18 12:45 RCC (Rec: 05/02/18 13:42 RCC [email or web address]) Current Condition History of Current Condition Onset Date 2015 Current Complaints SOB, weakness, unable to ambulate for exercise, pain all over body History of Current Condition Pt is a 73 y/o male presenting to physical therapy with a c/ o weakness, SOB with activity, pain throughout the body and inability to walk outdoors for exercise. 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 He states that initially his weakness and loss of function gradually started in 2015 after his from cancer. Pt admits he would sit for 6-8 hours a day, doing nothing. He has a complex medical history (see below). Pt admits that now he is embarrassed to see what little exercise he can do now but is extremely motivated to get better. He has found a female partner which he would like to be able to walk outdoors on trails with. 2 years ago, he was able to walk about 2.5 miles using walking sticks/poles. Treatment Goals Patient/Caregiver Goals walk outdoors on trails for exercise (walking on pavement increases his arthritic pain). Prior Functional Status Baseline Function- Mobility Modified Independent Baseline Function- Gait modified indep with increased time to travel community distances Baseline Function- Recreation/Hobbies trail walking 2.5 miles with walking sticks (2 yrs ago) Current Functional Impairments (Reported) Functional Limitations- Mobility/Gait fatigue/SOB and increased pain with community ambulation Functional Limitations- Recreation/ unable to perform Hobbies Personal Factors Other Personal Factors That May Effect cardiac history with 2 stents Therapy/Recovery placed, OA, L popliteal artery surgery/reconstruction, h/o prostate CA with radiation (45 sessions), HTN, B MIGUEL, depression since 2016 ( of spouse), multiple back and knee surgeries. PT-OP-C Subjective Start: 05/02/18 13:13 Freq: Status: Active Protocol: Document 09/18/18 13:06 SA (Rec: 09/18/18 13:17 SA [email or web address]) OP-PT Subjective Patient Comments Patient Comments Bill reports BP seems to be leveling out, knees are achy today but back seems a little more mobile. PT-OP-E Functional Tests Start: 05/02/18 13:13 Freq: Status: Active Protocol: Document 05/29/18 14:30 RCC (Rec: 05/29/18 15:46 RCC [email or web address]) Functional Tests 6 Minute Walk Test Distance 862 Device Used none PT-OP-F Manual Assessment Start: 08/21/18 11:30 Freq: Status: Active Protocol: Document 08/28/18 09:45 RCC (Rec: 08/29/18 13:04 RCC [email or web address]) Manual Assessments Soft Tissue Assessment Soft Tissue Mobility Assessment mild tension R iliopsoas, mild R QL PT-OP-G Mobility & Gait Start: 05/02/18 13:13 Freq: Status: Active Protocol: Document 08/07/18 12:00 RCC (Rec: 08/07/18 15:09 RCC [email or web address]) OP Mobility Evaluation Bed Mobility Supine to and from Sit UE support required, slow movements d/t low back pain Transfers Sit to Stand requires UE assistance from low seat PT-OP-M Strength Start: 05/02/18 13:13 Freq: Status: Active Protocol: Document 08/19/18 13:45 RCC (Rec: 08/20/18 11:07 RCC [email or web address]) Hip Strength Hip Manual Muscle Testing Right Flexion (L2) 4 Good External Rotation 3+ Fair+ Internal Rotation 4+ Good+ Left Flexion (L2) 5 Normal External Rotation 3+ Fair+ Internal Rotation 4+ Good+ Knee Strength Knee Manual Muscle Testing Right Flexion (S2) 5 Normal Extension (L3) 5 Normal Left Flexion (S2) 4+ Good+ Extension (L3) 4+ Good+ Ankle/Foot Strength Ankle and Foot Manual Muscle Testing Right Dorsiflexion (L4) 4+ Good+ Left Dorsiflexion (L4) 4+ Good+ PT-OP-Q Treatments Start: 11/10/18 13:13 Freq: Status: Active Protocol: Document 09/18/18 13:06 SA (Rec: 09/18/18 13:17 SA [email or web address]) Cardio Equipment Recumbent Stepper (Sci-Fit) Duration (Minutes) 10 Resistance 4 Seat Position 16 Other 1.77 dist Therapeutic Exercises Standing Exercises lunges Standing Exercise Name partial lunge with // bars Side bilateral Reps/Minutes 10 each step ups Standing Exercise Name step ups Side bilateral Resistance 6 inch step Reps/Minutes 5x 4 Comments without UE support standing pelvic tilt Equipment Used UE on grab bar Reps/Minutes 15 x 2 Comments cues for glute engagement heel cord stretch Standing Exercise Name heel cord stretch Side bilateral Equipment Used HOLLY Reps/Minutes 2x30 sec HS stretch Standing Exercise Name hamstring stretch Side bilateral Equipment Used stairs Reps/Minutes 2x30 sec Manual Therapy Treatment Soft Tissue Mobilization lumbar paraspinals and QL Mobilization Type Myofascial Release Rolling Intensity/Depth Moderate Body Position Sidelying Comments bilateral PT-OP-R Modalities Start: 05/02/18 13:13 Freq: Status: Active Protocol: Document 08/07/18 12:00 RCC (Rec: 08/07/18 15:09 RCC [email or web address]) Hot Pack/Cold Pack Treatment Cold Pack Location bilateral hip/buttock Patient Position Hooklying Treatment Duration (minutes) 10 Patient Tolerance Good Comments strap for compression PT-OP-T Assessment and Plan Start: 05/02/18 13:13 Freq: Status: Active Protocol: Document 09/18/18 13:06 SA (Rec: 09/18/18 13:17 SA [email or web address]) Physical Therapy Assessment Assessment Summary Assessment BP prior to exercise 138/88, pt tolerated ther ex and manual therapy well. Some crepitus in R knee with lunges but did not increase knee pain. No increase in LBP with activity. Physical Therapy Plan Next Visit Focus/Plan Next Note Type Treatment Note Next Visit Plan gentle progression of standing and resitance training (pt with flare up in pain with increased activity last week); yellow band resisted lateral walking, cont. partial lunges in // bars
--- NOTE | 2018-09-25 16:02 | PT.OTN ---
Current Diagnoses Myositis, unspecified (09/25/18) Physical Therapy Treatment Note PT-OP-A Visit Information Start: 05/02/18 13:13 Freq: Status: Active Protocol: Document 09/25/18 16:02 RCC (Rec: 09/25/18 17:07 RCC [email or web address]) Out-Patient Physical Therapy Visit Information Visit Information Visit Type Treatment Note Visit Start Time 16:02 Visit Stop Time 16:49 Total Visit Minutes 47 Visit Number 39 Number of GAS ROLLER OPERATOR Visits 0 Evaluation Information Evaluation Date 05/01/18 PT-OP-B Current Condition Start: 05/02/18 13:13 Freq: Status: Active Protocol: Document 05/01/18 12:45 RCC (Rec: 05/02/18 13:42 RCC [email or web address]) Current Condition History of Current Condition Onset Date 2015 Current Complaints SOB, weakness, unable to ambulate for exercise, pain all over body History of Current Condition Pt is a 73 y/o male presenting to physical therapy with a c/ o weakness, SOB with activity, pain throughout the body and inability to walk outdoors for exercise. 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 He states that initially his weakness and loss of function gradually started in 2015 after his from cancer. Pt admits he would sit for 6-8 hours a day, doing nothing. He has a complex medical history (see below). Pt admits that now he is embarrassed to see what little exercise he can do now but is extremely motivated to get better. He has found a female partner which he would like to be able to walk outdoors on trails with. 2 years ago, he was able to walk about 2.5 miles using walking sticks/poles. Treatment Goals Patient/Caregiver Goals walk outdoors on trails for exercise (walking on pavement increases his arthritic pain). Prior Functional Status Baseline Function- Mobility Modified Independent Baseline Function- Gait modified indep with increased time to travel community distances Baseline Function- Recreation/Hobbies trail walking 2.5 miles with walking sticks (2 yrs ago) Current Functional Impairments (Reported) Functional Limitations- Mobility/Gait fatigue/SOB and increased pain with community ambulation Functional Limitations- Recreation/ unable to perform Hobbies Personal Factors Other Personal Factors That May Effect cardiac history with 2 stents Therapy/Recovery placed, OA, L popliteal artery surgery/reconstruction, h/o prostate CA with radiation (45 sessions), HTN, B MIGUEL, depression since 2016 ( of spouse), multiple back and knee surgeries. PT-OP-C Subjective Start: 05/02/18 13:13 Freq: Status: Active Protocol: Document 09/25/18 16:02 RCC (Rec: 09/25/18 17:07 RCC [email or web address]) OP-PT Subjective Patient Comments Patient Comments Pt was ill this week, unable to attend session on Friday and states overall he is still very fatigued. PT-OP-E Functional Tests Start: 05/02/18 13:13 Freq: Status: Active Protocol: Document 05/29/18 14:30 RCC (Rec: 05/29/18 15:46 RCC [email or web address]) Functional Tests 6 Minute Walk Test Distance 862 Device Used none PT-OP-F Manual Assessment Start: 08/21/18 11:30 Freq: Status: Active Protocol: Document 09/25/18 16:02 RCC (Rec: 09/25/18 17:07 RCC [email or web address]) Manual Assessments Soft Tissue Assessment Soft Tissue Mobility Assessment mild tension in R QL and slight in iliopsoas on the R. PT-OP-G Mobility & Gait Start: 05/02/18 13:13 Freq: Status: Active Protocol: Document 08/07/18 12:00 RCC (Rec: 08/07/18 15:09 RCC [email or web address]) OP Mobility Evaluation Bed Mobility Supine to and from Sit UE support required, slow movements d/t low back pain Transfers Sit to Stand requires UE assistance from low seat PT-OP-M Strength Start: 05/02/18 13:13 Freq: Status: Active Protocol: Document 08/19/18 13:45 RCC (Rec: 08/20/18 11:07 RCC [email or web address]) Hip Strength Hip Manual Muscle Testing Right Flexion (L2) 4 Good External Rotation 3+ Fair+ Internal Rotation 4+ Good+ Left Flexion (L2) 5 Normal External Rotation 3+ Fair+ Internal Rotation 4+ Good+ Knee Strength Knee Manual Muscle Testing Right Flexion (S2) 5 Normal Extension (L3) 5 Normal Left Flexion (S2) 4+ Good+ Extension (L3) 4+ Good+ Ankle/Foot Strength Ankle and Foot Manual Muscle Testing Right Dorsiflexion (L4) 4+ Good+ Left Dorsiflexion (L4) 4+ Good+ PT-OP-Q Treatments Start: 05/02/18 13:13 Freq: Status: Active Protocol: Document 09/25/18 16:02 RCC (Rec: 09/25/18 17:07 RCC [email or web address]) Cardio Equipment Recumbent Stepper (Sci-Fit) Duration (Minutes) 10 Resistance 4.1 Seat Position 16 Other 1.88 dist Gym Equipment Cable Column (Body Solid) Lat Pull Down Resistance 50# Reps/Time x20 Shuttle Recovery Unilateral Squats Resistance 50 Shuttle Recovery Platform Stable Reps/Time 10 x2 Bilateral Squats Resistance 87 Shuttle Recovery Platform Stable Reps/Time 10 x2 Therapeutic Exercises Standing Exercises sit to stand with hip hinge Standing Exercise Name sit to stand Equipment Used mat table heel cord stretch Standing Exercise Name heel cord stretch Side bilateral Equipment Used HOLLY Reps/Minutes 2x30 sec HS stretch Standing Exercise Name hamstring stretch Side bilateral Equipment Used stairs Reps/Minutes 2x30 sec Manual Therapy Treatment Soft Tissue Mobilization R psoas Body Location R iliopsoas Mobilization Type Myofascial Release Sustained Pressure Intensity/Depth Moderate Body Position Sidelying Comments 6 min lumbar paraspinals and QL Mobilization Type Myofascial Release Rolling Intensity/Depth Moderate Body Position Sidelying Comments right; 10 min PT-OP-R Modalities Start: 05/02/18 13:13 Freq: Status: Active Protocol: Document 08/07/18 12:00 RCC (Rec: 08/07/18 15:09 RCC [email or web address]) Hot Pack/Cold Pack Treatment Cold Pack Location bilateral hip/buttock Patient Position Hooklying Treatment Duration (minutes) 10 Patient Tolerance Good Comments strap for compression PT-OP-T Assessment and Plan Start: 05/02/18 13:13 Freq: Status: Active Protocol: Document 09/25/18 16:02 RCC (Rec: 09/25/18 17:07 [facility] [email or web address]) Physical Therapy Assessment Goals Stair climbing [facility] Goal (LTG) climb stair without holding railings x 4 steps x2 LTG Duration 8 weeks 6 minute walk test Impairment 6 MWT- 862 ft Short Term Goal (STG) >1,000 ft with 6 Minute Walk Test to improve exercise tolerance and decrease risk for falls. *not tested 08/19/18 d/t new onset pain STG Duration 4 weeks [facility] Goal (LTG) >1,200 ft with 6 Minute Walk Test to improve exercise tolerance and decrease risk for falls. LTG Duration 8 weeks trail walking Impairment inability to walk on trails due to pain and fatigue Short Term Goal (STG) pt will walk outdoors on trails with bilateral walking sticks for 15 min, 3 days per week. *walking outdoors 2 days per week until this week d/t new onset pain 08/19/18 STG Duration 4 weeks Food And Beverage Server Goal (LTG) pt will walk outdoors on trails with bilateral walking sticks for 30 min, 5 days per week as part of an indep. home program for exercise and cardiovascular benefits. LTG Duration 8 weeks LE strength Impairment LE weakness Short Term Goal (STG) 4/5 or greater LE strength with MMT to improve functional mobility and tolerance to stairs in community. *good progress- hip ER still < 4/5 with MMT but improved 08/19 STG Duration 4 weeks Food And Beverage Server Goal (LTG) 4+/5 or greater LE strength with MMT to improve functional moblity and tolerance to stairs in community. LTG Duration 8 weeks Assessment Summary Assessment 6 Minute Walk test held today due to pt c/o fatigue at beginning of session. He was able to increase the resistance on lat pulls without any discomfort in the psoas on the R, and improved hip hinging with sit<->stand/ squats to/from the mat table. BP 132/82 in sitting on LUE after bike and leg press. Pt is improving, slowly, but continues to be highly motivated to improve and would greatly benefit from the continuation of PT and under the current POC. Physical Therapy Plan Frequency and Duration Frequency of Treatment 2x/Week Duration of Treatment 8 weeks Plan of Care Start Date 08/19/18 Plan of Care End Date 10/14/18 Next Visit Focus/Plan Next Note Type Treatment Note Next Visit Plan cont. to advance core and stabilization of LE as tolerated, standing balance and functional mobility
--- NOTE | 2018-09-28 16:18 | PT.OTN ---
Current Diagnoses Myositis, unspecified (09/28/18) Physical Therapy Treatment Note PT-OP-A Visit Information Start: 05/02/18 13:13 Freq: Status: Active Protocol: Document 09/28/18 15:15 DCW (Rec: 09/28/18 16:15 DCW [id number]) Out-Patient Physical Therapy Visit Information Visit Information Visit Type Treatment Note Visit Start Time 15:15 Visit Stop Time 16:00 Total Visit Minutes 45 Visit Number 40 Number of LABORER [employer] Visits 0 Evaluation Information Evaluation Date 05/01/18 PT-OP-B Current Condition Start: 05/02/18 13:13 Freq: Status: Active Protocol: Document 05/01/18 12:45 RCC (Rec: 05/02/18 13:42 RCC [email or web address]) Current Condition History of Current Condition Onset Date 2015 Current Complaints SOB, weakness, unable to ambulate for exercise, pain all over body History of Current Condition Pt is a 73 y/o male presenting to physical therapy with a c/ o weakness, SOB with activity, pain throughout the body and inability to walk outdoors for exercise. 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 He states that initially his weakness and loss of function gradually started in 2015 after his from cancer. Pt admits he would sit for 6-8 hours a day, doing nothing. He has a complex medical history (see below). Pt admits that now he is embarrassed to see what little exercise he can do now but is extremely motivated to get better. He has found a female partner which he would like to be able to walk outdoors on trails with. 2 years ago, he was able to walk about 2.5 miles using walking sticks/poles. Treatment Goals Patient/Caregiver Goals walk outdoors on trails for exercise (walking on pavement increases his arthritic pain). Prior Functional Status Baseline Function- Mobility Modified Independent Baseline Function- Gait modified indep with increased time to travel community distances Baseline Function- Recreation/Hobbies trail walking 2.5 miles with walking sticks (2 yrs ago) Current Functional Impairments (Reported) Functional Limitations- Mobility/Gait fatigue/SOB and increased pain with community ambulation Functional Limitations- Recreation/ unable to perform Hobbies Personal Factors Other Personal Factors That May Effect cardiac history with 2 stents Therapy/Recovery placed, OA, L popliteal artery surgery/reconstruction, h/o prostate CA with radiation (45 sessions), HTN, B MIGUEL, depression since 2016 ( of spouse), multiple back and knee surgeries. PT-OP-C Subjective Start: 05/02/18 13:13 Freq: Status: Active Protocol: Document 09/28/18 15:15 DCW (Rec: 09/28/18 16:15 DCW [id number]) OP-PT Subjective Patient Comments Patient Comments Pt reports he is still adjusting to his changes in meds, which has caused a drop in his normally quite high blood pressure. PT-OP-E Functional Tests Start: 05/02/18 13:13 Freq: Status: Active Protocol: Document 05/29/18 14:30 RCC (Rec: 05/29/18 15:46 RCC [email or web address]) Functional Tests 6 Minute Walk Test Distance 862 Device Used none PT-OP-F Manual Assessment Start: 08/21/18 11:30 Freq: Status: Active Protocol: Document 09/25/18 16:02 RCC (Rec: 09/25/18 17:07 RCC [email or web address]) Manual Assessments Soft Tissue Assessment Soft Tissue Mobility Assessment mild tension in R QL and slight in iliopsoas on the R. PT-OP-G Mobility & Gait Start: 05/02/18 13:13 Freq: Status: Active Protocol: Document 08/07/18 12:00 RCC (Rec: 08/07/18 15:09 RCC [email or web address]) OP Mobility Evaluation Bed Mobility Supine to and from Sit UE support required, slow movements d/t low back pain Transfers Sit to Stand requires UE assistance from low seat PT-OP-M Strength Start: 05/02/18 13:13 Freq: Status: Active Protocol: Document 08/19/18 13:45 RCC (Rec: 08/20/18 11:07 RCC [email or web address]) Hip Strength Hip Manual Muscle Testing Right Flexion (L2) 4 Good External Rotation 3+ Fair+ Internal Rotation 4+ Good+ Left Flexion (L2) 5 Normal External Rotation 3+ Fair+ Internal Rotation 4+ Good+ Knee Strength Knee Manual Muscle Testing Right Flexion (S2) 5 Normal Extension (L3) 5 Normal Left Flexion (S2) 4+ Good+ Extension (L3) 4+ Good+ Ankle/Foot Strength Ankle and Foot Manual Muscle Testing Right Dorsiflexion (L4) 4+ Good+ Left Dorsiflexion (L4) 4+ Good+ PT-OP-Q Treatments Start: 05/02/18 13:13 Freq: Status: Active Protocol: Document 09/28/18 15:15 DCW (Rec: 09/28/18 16:15 DCW [id number]) Cardio Equipment Recumbent Stepper (Sci-Fit) Duration (Minutes) 10 Resistance 4.1 Seat Position 16 Other 1.93 dist Gym Equipment Cable Column (Body Solid) Lat Pull Down Resistance 50# Reps/Time x20 Shuttle Recovery Unilateral Squats Resistance 50 Shuttle Recovery Platform Stable Reps/Time x20 Bilateral Squats Resistance 87 Shuttle Recovery Platform Stable Reps/Time x20 Therapeutic Exercises Standing Exercises step ups Standing Exercise Name step ups Side bilateral Resistance 6 inch step Reps/Minutes 5x 4 Comments without UE support heel cord stretch Standing Exercise Name heel cord stretch Side bilateral Equipment Used HOLLY Reps/Minutes 2x30 sec HS stretch Standing Exercise Name hamstring stretch Side bilateral Equipment Used stairs Reps/Minutes 2x30 sec resisted walking Standing Exercise Name lateral, fwd, bkwd Side bilateral Resistance Green Equipment Used T-band Reps/Minutes 2 laps Manual Therapy Treatment Soft Tissue Mobilization lumbar paraspinals and QL Mobilization Type Myofascial Release Rolling Intensity/Depth Moderate Body Position Sidelying Comments right; 10 min PT-OP-R Modalities Start: 05/02/18 13:13 Freq: Status: Active Protocol: Document 08/07/18 12:00 RCC (Rec: 08/07/18 15:09 RCC [email or web address]) Hot Pack/Cold Pack Treatment Cold Pack Location bilateral hip/buttock Patient Position Hooklying Treatment Duration (minutes) 10 Patient Tolerance Good Comments strap for compression PT-OP-T Assessment and Plan Start: 05/02/18 13:13 Freq: Status: Active Protocol: Document 09/28/18 15:15 DCW (Rec: 09/28/18 16:15 DCW [id number]) Physical Therapy Assessment Goals Stair climbing [facility] Goal (LTG) climb stair without holding railings x 4 steps x2 LTG Duration 8 weeks 6 minute walk test Impairment 6 MWT- 862 ft Short Term Goal (STG) >1,000 ft with 6 Minute Walk Test to improve exercise tolerance and decrease risk for falls. *not tested 08/19/18 d/t new onset pain STG Duration 4 weeks Senior Care Goal (LTG) >1,200 ft with 6 Minute Walk Test to improve exercise tolerance and decrease risk for falls. LTG Duration 8 weeks trail walking Impairment inability to walk on trails due to pain and fatigue Short Term Goal (STG) pt will walk outdoors on trails with bilateral walking sticks for 15 min, 3 days per week. *walking outdoors 2 days per week until this week d/t new onset pain 08/19/18 STG Duration 4 weeks Senior Care Goal (LTG) pt will walk outdoors on trails with bilateral walking sticks for 30 min, 5 days per week as part of an indep. home program for exercise and cardiovascular benefits. LTG Duration 8 weeks LE strength Impairment LE weakness Short Term Goal (STG) 4/5 or greater LE strength with MMT to improve functional mobility and tolerance to stairs in community. *good progress- hip ER still < 4/5 with MMT but improved 08/19 STG Duration 4 weeks Adoption Agent Goal (LTG) 4+/5 or greater LE strength with MMT to improve functional moblity and tolerance to stairs in community. LTG Duration 8 weeks Assessment Summary Assessment Pt is experiencing noticeable improvement throughout the tone of his lumbar paraspinals and QL. Physical Therapy Plan Frequency and Duration Frequency of Treatment 2x/Week Duration of Treatment 8 weeks Plan of Care Start Date 08/19/18 Plan of Care End Date 10/14/18 Next Visit Focus/Plan Next Note Type Treatment Note Next Visit Plan cont. to advance core and stabilization of LE as tolerated, standing balance and functional mobility
[2018-10-02 09:50] VITALS: BP 142/84
--- NOTE | 2018-10-02 10:35 | PT.OTN ---
Current Diagnoses Myositis, unspecified (10/02/18) Physical Therapy Treatment Note PT-OP-A Visit Information Start: 05/02/18 13:13 Freq: Status: Active Protocol: Document 10/02/18 10:35 RCC (Rec: 10/02/18 13:42 RCC [email or web address]) Out-Patient Physical Therapy Visit Information Visit Information Visit Type Treatment Note Visit Start Time 10:35 Visit Stop Time 11:17 Total Visit Minutes 42 Visit Number 41 Number of ESTHETICIAN/SPA COORDINATOR Visits 0 Evaluation Information Evaluation Date 05/01/18 PT-OP-B Current Condition Start: 05/02/18 13:13 Freq: Status: Active Protocol: Document 05/01/18 12:45 RCC (Rec: 05/02/18 13:42 RCC [email or web address]) Current Condition History of Current Condition Onset Date 2015 Current Complaints SOB, weakness, unable to ambulate for exercise, pain all over body History of Current Condition Pt is a 73 y/o male presenting to physical therapy with a c/ o weakness, SOB with activity, pain throughout the body and inability to walk outdoors for exercise. 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 He states that initially his weakness and loss of function gradually started in 2015 after his from cancer. Pt admits he would sit for 6-8 hours a day, doing nothing. He has a complex medical history (see below). Pt admits that now he is embarrassed to see what little exercise he can do now but is extremely motivated to get better. He has found a female partner which he would like to be able to walk outdoors on trails with. 2 years ago, he was able to walk about 2.5 miles using walking sticks/poles. Treatment Goals Patient/Caregiver Goals walk outdoors on trails for exercise (walking on pavement increases his arthritic pain). Prior Functional Status Baseline Function- Mobility Modified Independent Baseline Function- Gait modified indep with increased time to travel community distances Baseline Function- Recreation/Hobbies trail walking 2.5 miles with walking sticks (2 yrs ago) Current Functional Impairments (Reported) Functional Limitations- Mobility/Gait fatigue/SOB and increased pain with community ambulation Functional Limitations- Recreation/ unable to perform Hobbies Personal Factors Other Personal Factors That May Effect cardiac history with 2 stents Therapy/Recovery placed, OA, L popliteal artery surgery/reconstruction, h/o prostate CA with radiation (45 sessions), HTN, B MIGUEL, depression since 2016 ( of spouse), multiple back and knee surgeries. PT-OP-C Subjective Start: 05/02/18 13:13 Freq: Status: Active Protocol: Document 10/02/18 10:35 RCC (Rec: 10/02/18 13:42 RCC [email or web address]) OP-PT Subjective Patient Comments Patient Comments Pt notes that his MD has increased his BP medication due to HTN. He has had increased stress this week emotionally. PT-OP-E Functional Tests Start: 05/02/18 13:13 Freq: Status: Active Protocol: Document 05/29/18 14:30 RCC (Rec: 05/29/18 15:46 RCC [email or web address]) Functional Tests 6 Minute Walk Test Distance 862 Device Used none PT-OP-F Manual Assessment Start: 08/21/18 11:30 Freq: Status: Active Protocol: Document 09/25/18 16:02 RCC (Rec: 09/25/18 17:07 RCC [email or web address]) Manual Assessments Soft Tissue Assessment Soft Tissue Mobility Assessment mild tension in R QL and slight in iliopsoas on the R. PT-OP-G Mobility & Gait Start: 05/02/18 13:13 Freq: Status: Active Protocol: Document 08/07/18 12:00 RCC (Rec: 08/07/18 15:09 RCC [email or web address]) OP Mobility Evaluation Bed Mobility Supine to and from Sit UE support required, slow movements d/t low back pain Transfers Sit to Stand requires UE assistance from low seat PT-OP-H Neuro Start: 10/02/18 13:36 Freq: Status: Active Protocol: Document 10/02/18 10:35 RCC (Rec: 10/02/18 13:42 RCC [email or web address]) Vital Signs Blood Pressure left arm Blood Pressure (90/60-120/80 mmHg) 142/84 H Blood Pressure Source Manual Cuff PT-OP-M Strength Start: 05/02/18 13:13 Freq: Status: Active Protocol: Document 08/19/18 13:45 RCC (Rec: 08/20/18 11:07 RCC [email or web address]) Hip Strength Hip Manual Muscle Testing Right Flexion (L2) 4 Good External Rotation 3+ Fair+ Internal Rotation 4+ Good+ Left Flexion (L2) 5 Normal External Rotation 3+ Fair+ Internal Rotation 4+ Good+ Knee Strength Knee Manual Muscle Testing Right Flexion (S2) 5 Normal Extension (L3) 5 Normal Left Flexion (S2) 4+ Good+ Extension (L3) 4+ Good+ Ankle/Foot Strength Ankle and Foot Manual Muscle Testing Right Dorsiflexion (L4) 4+ Good+ Left Dorsiflexion (L4) 4+ Good+ PT-OP-Q Treatments Start: 05/02/18 13:13 Freq: Status: Active Protocol: Document 10/02/18 10:35 RCC (Rec: 10/02/18 13:42 RCC [email or web address]) Cardio Equipment Recumbent Stepper (Sci-Fit) Duration (Minutes) 10 Resistance 4.1 Seat Position 16 Other 1.58 dist Manual Therapy Treatment Soft Tissue Mobilization gluteals and piriformis Mobilization Type Myofascial Release Rolling Intensity/Depth Moderate Body Position Sidelying Comments bilateral lumbar paraspinals and QL Mobilization Type Myofascial Release Rolling Intensity/Depth Moderate Body Position Sidelying Comments bilateral; 10 min each PT-OP-R Modalities Start: 05/02/18 13:13 Freq: Status: Active Protocol: Document 08/07/18 12:00 RCC (Rec: 08/07/18 15:09 RCC [email or web address]) Hot Pack/Cold Pack Treatment Cold Pack Location bilateral hip/buttock Patient Position Hooklying Treatment Duration (minutes) 10 Patient Tolerance Good Comments strap for compression PT-OP-T Assessment and Plan Start: 05/02/18 13:13 Freq: Status: Active Protocol: Document 10/02/18 10:35 RCC (Rec: 10/02/18 13:42 [facility] [email or web address]) Physical Therapy Assessment Assessment Summary Assessment Pt with noticeable pain with ambulation and Sci-fit today, therefore mainly worked on manual therapy to assist with decreasing pain in low back and posterior hips. Pt likely with increased pain due to both stress and medical comorbidities. Physical Therapy Plan Frequency and Duration Frequency of Treatment 2x/Week Duration of Treatment 8 weeks Plan of Care Start Date 08/19/18 Plan of Care End Date 10/14/18 Next Visit Focus/Plan Next Note Type Treatment Note Next Visit Plan slow progression back to resistance training as able; gentle core stability training
--- NOTE | 2018-10-07 15:33 | PT.OTN ---
Current Diagnoses Myositis, unspecified (10/07/18) Physical Therapy Treatment Note PT-OP-A Visit Information Start: 05/02/18 13:13 Freq: Status: Active Protocol: Document 10/07/18 12:00 GGD (Rec: 10/07/18 15:33 GGD [email or web address]) Out-Patient Physical Therapy Visit Information Visit Information Visit Type Treatment Note Visit Start Time 12:05 Visit Stop Time 12:45 Total Visit Minutes 40 Visit Number 42 Number of LAYBOY OPERATOR Visits 1 Evaluation Information Evaluation Date 05/01/18 PT-OP-B Current Condition Start: 05/02/18 13:13 Freq: Status: Active Protocol: Document 05/01/18 12:45 RCC (Rec: 05/02/18 13:42 RCC [email or web address]) Current Condition History of Current Condition Onset Date 2015 Current Complaints SOB, weakness, unable to ambulate for exercise, pain all over body History of Current Condition Pt is a 73 y/o male presenting to physical therapy with a c/ o weakness, SOB with activity, pain throughout the body and inability to walk outdoors for exercise. 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 He states that initially his weakness and loss of function gradually started in 2015 after his from cancer. Pt admits he would sit for 6-8 hours a day, doing nothing. He has a complex medical history (see below). Pt admits that now he is embarrassed to see what little exercise he can do now but is extremely motivated to get better. He has found a female partner which he would like to be able to walk outdoors on trails with. 2 years ago, he was able to walk about 2.5 miles using walking sticks/poles. Treatment Goals Patient/Caregiver Goals walk outdoors on trails for exercise (walking on pavement increases his arthritic pain). Prior Functional Status Baseline Function- Mobility Modified Independent Baseline Function- Gait modified indep with increased time to travel community distances Baseline Function- Recreation/Hobbies trail walking 2.5 miles with walking sticks (2 yrs ago) Current Functional Impairments (Reported) Functional Limitations- Mobility/Gait fatigue/SOB and increased pain with community ambulation Functional Limitations- Recreation/ unable to perform Hobbies Personal Factors Other Personal Factors That May Effect cardiac history with 2 stents Therapy/Recovery placed, OA, L popliteal artery surgery/reconstruction, h/o prostate CA with radiation (45 sessions), HTN, B MIGUEL, depression since 2016 ( of spouse), multiple back and knee surgeries. PT-OP-C Subjective Start: 05/02/18 13:13 Freq: Status: Active Protocol: Document 10/07/18 12:00 GGD (Rec: 10/07/18 15:33 GGD [email or web address]) OP-PT Subjective Patient Comments Patient Comments Pt states that he having less pain, but still feels bad after increase in BP medication. PT-OP-E Functional Tests Start: 05/02/18 13:13 Freq: Status: Active Protocol: Document 05/29/18 14:30 RCC (Rec: 05/29/18 15:46 RCC [email or web address]) Functional Tests 6 Minute Walk Test Distance 862 Device Used none PT-OP-F Manual Assessment Start: 08/21/18 11:30 Freq: Status: Active Protocol: Document 09/25/18 16:02 RCC (Rec: 09/25/18 17:07 RCC [email or web address]) Manual Assessments Soft Tissue Assessment Soft Tissue Mobility Assessment mild tension in R QL and slight in iliopsoas on the R. PT-OP-G Mobility & Gait Start: 05/02/18 13:13 Freq: Status: Active Protocol: Document 08/07/18 12:00 RCC (Rec: 08/07/18 15:09 RCC [email or web address]) OP Mobility Evaluation Bed Mobility Supine to and from Sit UE support required, slow movements d/t low back pain Transfers Sit to Stand requires UE assistance from low seat PT-OP-H Neuro Start: 10/02/18 13:36 Freq: Status: Active Protocol: Document 10/02/18 09:50 RCC (Rec: 10/02/18 13:42 RCC [email or web address]) Vital Signs Blood Pressure left arm Blood Pressure (90/60-120/80 mmHg) 142/84 H Blood Pressure Source Manual Cuff PT-OP-M Strength Start: 05/02/18 13:13 Freq: Status: Active Protocol: Document 08/19/18 13:45 RCC (Rec: 08/20/18 11:07 RCC [email or web address]) Hip Strength Hip Manual Muscle Testing Right Flexion (L2) 4 Good External Rotation 3+ Fair+ Internal Rotation 4+ Good+ Left Flexion (L2) 5 Normal External Rotation 3+ Fair+ Internal Rotation 4+ Good+ Knee Strength Knee Manual Muscle Testing Right Flexion (S2) 5 Normal Extension (L3) 5 Normal Left Flexion (S2) 4+ Good+ Extension (L3) 4+ Good+ Ankle/Foot Strength Ankle and Foot Manual Muscle Testing Right Dorsiflexion (L4) 4+ Good+ Left Dorsiflexion (L4) 4+ Good+ PT-OP-Q Treatments Start: 05/02/18 13:13 Freq: Status: Active Protocol: Document 10/07/18 12:00 GGD (Rec: 10/07/18 15:33 GGD [email or web address]) Cardio Equipment Recumbent Stepper (Sci-Fit) Duration (Minutes) 10 Resistance 4.1 Seat Position 16 Other 1.64 dist Therapeutic Exercises Standing Exercises heel cord stretch Standing Exercise Name heel cord stretch Side bilateral Equipment Used HOLLY Reps/Minutes 2x30 sec HS stretch Standing Exercise Name hamstring stretch Side bilateral Equipment Used stairs Reps/Minutes 2x30 sec resisted walking Standing Exercise Name lateral, fwd, bkwd Side bilateral Resistance Green Equipment Used T-band Reps/Minutes 2 laps Manual Therapy Treatment Soft Tissue Mobilization gluteals and piriformis Mobilization Type Myofascial Release Rolling Intensity/Depth Moderate Body Position Sidelying Comments bilateral lumbar paraspinals and QL Mobilization Type Myofascial Release Rolling Intensity/Depth Moderate Body Position Sidelying Comments bilateral; 10 min each PT-OP-R Modalities Start: 05/02/18 13:13 Freq: Status: Active Protocol: Document 08/07/18 12:00 RCC (Rec: 08/07/18 15:09 RCC [email or web address]) Hot Pack/Cold Pack Treatment Cold Pack Location bilateral hip/buttock Patient Position Hooklying Treatment Duration (minutes) 10 Patient Tolerance Good Comments strap for compression PT-OP-T Assessment and Plan Start: 05/02/18 13:13 Freq: Status: Active Protocol: Document 10/07/18 12:00 GGD (Rec: 10/07/18 15:33 GGD [email or web address]) Physical Therapy Assessment Assessment Summary Assessment PT able to return to light exercise. HE had no increase in pain with Sci-fit. Decrease in tone of L/S paraspinals and QL. Physical Therapy Plan Frequency and Duration Frequency of Treatment 2x/Week Duration of Treatment 8 weeks Plan of Care Start Date 08/19/18 Plan of Care End Date 10/14/18 Next Visit Focus/Plan Next Note Type Treatment Note Next Visit Plan slow progression back to resistance training as able; gentle core stability training
--- NOTE | 2018-10-09 13:33 | PT.OTN ---
Current Diagnoses Myositis, unspecified (10/09/18) Physical Therapy Treatment Note PT-OP-A Visit Information Start: 05/02/18 13:13 Freq: Status: Active Protocol: Document 10/09/18 11:15 GGD (Rec: 10/09/18 13:33 GGD [email or web address]) Out-Patient Physical Therapy Visit Information Visit Information Visit Type Treatment Note Visit Start Time 12:00 Visit Stop Time 12:40 Total Visit Minutes 40 Visit Number 43 Number of DATA PROCESSING SYSTEMS CONSULTANT Visits 2 Evaluation Information Evaluation Date 05/01/18 PT-OP-B Current Condition Start: 05/02/18 13:13 Freq: Status: Active Protocol: Document 05/01/18 12:45 RCC (Rec: 05/02/18 13:42 RCC [email or web address]) Current Condition History of Current Condition Onset Date 2015 Current Complaints SOB, weakness, unable to ambulate for exercise, pain all over body History of Current Condition Pt is a 73 y/o male presenting to physical therapy with a c/ o weakness, SOB with activity, pain throughout the body and inability to walk outdoors for exercise. 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 He states that initially his weakness and loss of function gradually started in 2015 after his from cancer. Pt admits he would sit for 6-8 hours a day, doing nothing. He has a complex medical history (see below). Pt admits that now he is embarrassed to see what little exercise he can do now but is extremely motivated to get better. He has found a female partner which he would like to be able to walk outdoors on trails with. 2 years ago, he was able to walk about 2.5 miles using walking sticks/poles. Treatment Goals Patient/Caregiver Goals walk outdoors on trails for exercise (walking on pavement increases his arthritic pain). Prior Functional Status Baseline Function- Mobility Modified Independent Baseline Function- Gait modified indep with increased time to travel community distances Baseline Function- Recreation/Hobbies trail walking 2.5 miles with walking sticks (2 yrs ago) Current Functional Impairments (Reported) Functional Limitations- Mobility/Gait fatigue/SOB and increased pain with community ambulation Functional Limitations- Recreation/ unable to perform Hobbies Personal Factors Other Personal Factors That May Effect cardiac history with 2 stents Therapy/Recovery placed, OA, L popliteal artery surgery/reconstruction, h/o prostate CA with radiation (45 sessions), HTN, B MIGUEL, depression since 2016 ( of spouse), multiple back and knee surgeries. PT-OP-C Subjective Start: 05/02/18 13:13 Freq: Status: Active Protocol: Document 10/09/18 11:15 GGD (Rec: 10/09/18 13:33 GGD [email or web address]) OP-PT Subjective Patient Comments Patient Comments Pt states he feels the same, no increase in pain after last visit. PT-OP-E Functional Tests Start: 05/02/18 13:13 Freq: Status: Active Protocol: Document 05/29/18 14:30 RCC (Rec: 05/29/18 15:46 RCC [email or web address]) Functional Tests 6 Minute Walk Test Distance 862 Device Used none PT-OP-F Manual Assessment Start: 08/21/18 11:30 Freq: Status: Active Protocol: Document 09/25/18 16:02 RCC (Rec: 09/25/18 17:07 RCC [email or web address]) Manual Assessments Soft Tissue Assessment Soft Tissue Mobility Assessment mild tension in R QL and slight in iliopsoas on the R. PT-OP-G Mobility & Gait Start: 05/02/18 13:13 Freq: Status: Active Protocol: Document 08/07/18 12:00 RCC (Rec: 08/07/18 15:09 RCC [email or web address]) OP Mobility Evaluation Bed Mobility Supine to and from Sit UE support required, slow movements d/t low back pain Transfers Sit to Stand requires UE assistance from low seat PT-OP-H Neuro Start: 10/02/18 13:36 Freq: Status: Active Protocol: Document 10/02/18 09:50 RCC (Rec: 10/02/18 13:42 RCC [email or web address]) Vital Signs Blood Pressure left arm Blood Pressure (90/60-120/80 mmHg) 142/84 H Blood Pressure Source Manual Cuff PT-OP-M Strength Start: 05/02/18 13:13 Freq: Status: Active Protocol: Document 08/19/18 13:45 RCC (Rec: 08/20/18 11:07 RCC [email or web address]) Hip Strength Hip Manual Muscle Testing Right Flexion (L2) 4 Good External Rotation 3+ Fair+ Internal Rotation 4+ Good+ Left Flexion (L2) 5 Normal External Rotation 3+ Fair+ Internal Rotation 4+ Good+ Knee Strength Knee Manual Muscle Testing Right Flexion (S2) 5 Normal Extension (L3) 5 Normal Left Flexion (S2) 4+ Good+ Extension (L3) 4+ Good+ Ankle/Foot Strength Ankle and Foot Manual Muscle Testing Right Dorsiflexion (L4) 4+ Good+ Left Dorsiflexion (L4) 4+ Good+ PT-OP-Q Treatments Start: 05/02/18 13:13 Freq: Status: Active Protocol: Document 10/09/18 11:15 GGD (Rec: 10/09/18 13:33 GGD [email or web address]) Cardio Equipment Recumbent Stepper (Sci-Fit) Duration (Minutes) 10 Resistance 4 Seat Position 16 Other 1.54 dist Therapeutic Exercises Supine Exercises SLR- hip flexion Side bilateral Reps/Minutes 2x5 hip er/abd Resistance L 3 Equipment Used thera band Reps/Minutes 15 x 4 Supine Exercise Name bridges Reps/Minutes 10 Standing Exercises heel cord stretch Standing Exercise Name heel cord stretch Side bilateral Equipment Used HOLLY Reps/Minutes 2x30 sec HS stretch Standing Exercise Name hamstring stretch Side bilateral Equipment Used stairs Reps/Minutes 2x30 sec Manual Therapy Treatment Soft Tissue Mobilization gluteals and piriformis Mobilization Type Myofascial Release Rolling Intensity/Depth Moderate Body Position Sidelying Comments bilateral lumbar paraspinals and QL Mobilization Type Myofascial Release Rolling Intensity/Depth Moderate Body Position Sidelying PT-OP-R Modalities Start: 05/02/18 13:13 Freq: Status: Active Protocol: Document 08/07/18 12:00 RCC (Rec: 08/07/18 15:09 RCC [email or web address]) Hot Pack/Cold Pack Treatment Cold Pack Location bilateral hip/buttock Patient Position Hooklying Treatment Duration (minutes) 10 Patient Tolerance Good Comments strap for compression PT-OP-T Assessment and Plan Start: 05/02/18 13:13 Freq: Status: Active Protocol: Document 10/09/18 11:15 GGD (Rec: 10/09/18 13:33 GGD [email or web address]) Physical Therapy Assessment Assessment Summary Assessment Pt had mild fatigue with exercise. He increase in C/O pain with sci-fit, but tolerated at a slower pace. Physical Therapy Plan Frequency and Duration Frequency of Treatment 2x/Week Duration of Treatment 8 weeks Plan of Care Start Date 08/19/18 Plan of Care End Date 04/24/19 Next Visit Focus/Plan Next Note Type Treatment Note Next Visit Plan slow progression back to resistance training as able; gentle core stability training
--- NOTE | 2018-10-14 14:46 | PT.OTN ---
Current Diagnoses Myositis, unspecified (10/14/18) Physical Therapy Treatment Note PT-OP-A Visit Information Start: 05/02/18 13:13 Freq: Status: Active Protocol: Document 10/14/18 14:26 GGD (Rec: 10/14/18 14:30 GGD [email or web address]) Out-Patient Physical Therapy Visit Information Visit Information Visit Type Treatment Note Visit Start Time 14:30 Visit Stop Time 15:15 Total Visit Minutes 40 Visit Number 44 Number of STACK MATCHER Visits 3 Evaluation Information Evaluation Date 05/01/18 PT-OP-B Current Condition Start: 05/02/18 13:13 Freq: Status: Active Protocol: Document 05/01/18 12:45 RCC (Rec: 05/02/18 13:42 RCC [email or web address]) Current Condition History of Current Condition Onset Date 2015 Current Complaints SOB, weakness, unable to ambulate for exercise, pain all over body History of Current Condition Pt is a 73 y/o male presenting to physical therapy with a c/ o weakness, SOB with activity, pain throughout the body and inability to walk outdoors for exercise. 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 He states that initially his weakness and loss of function gradually started in 2015 after his from cancer. Pt admits he would sit for 6-8 hours a day, doing nothing. He has a complex medical history (see below). Pt admits that now he is embarrassed to see what little exercise he can do now but is extremely motivated to get better. He has found a female partner which he would like to be able to walk outdoors on trails with. 2 years ago, he was able to walk about 2.5 miles using walking sticks/poles. Treatment Goals Patient/Caregiver Goals walk outdoors on trails for exercise (walking on pavement increases his arthritic pain). Prior Functional Status Baseline Function- Mobility Modified Independent Baseline Function- Gait modified indep with increased time to travel community distances Baseline Function- Recreation/Hobbies trail walking 2.5 miles with walking sticks (2 yrs ago) Current Functional Impairments (Reported) Functional Limitations- Mobility/Gait fatigue/SOB and increased pain with community ambulation Functional Limitations- Recreation/ unable to perform Hobbies Personal Factors Other Personal Factors That May Effect cardiac history with 2 stents Therapy/Recovery placed, OA, L popliteal artery surgery/reconstruction, h/o prostate CA with radiation (45 sessions), HTN, B MIGUEL, depression since 2016 ( of spouse), multiple back and knee surgeries. PT-OP-C Subjective Start: 05/02/18 13:13 Freq: Status: Active Protocol: Document 10/14/18 14:26 GGD (Rec: 10/14/18 14:30 GGD [email or web address]) OP-PT Subjective Patient Comments Patient Comments Pt states he stopped the increase in BP medication due to increase in pain, fatgue and light headiness. PT-OP-E Functional Tests Start: 05/02/18 13:13 Freq: Status: Active Protocol: Document 10/14/18 14:30 GGD (Rec: 10/14/18 14:32 GGD [email or web address]) Functional Tests 6 Minute Walk Test Distance 837 Comments increase in hip pain. PT-OP-F Manual Assessment Start: 08/21/18 11:30 Freq: Status: Active Protocol: Document 09/25/18 16:02 RCC (Rec: 09/25/18 17:07 RCC [email or web address]) Manual Assessments Soft Tissue Assessment Soft Tissue Mobility Assessment mild tension in R QL and slight in iliopsoas on the R. PT-OP-G Mobility & Gait Start: 05/02/18 13:13 Freq: Status: Active Protocol: Document 10/14/18 14:26 GGD (Rec: 10/14/18 14:30 GGD [email or web address]) Stair Climbing Evaluation Technique/Endurance Stair Climbing Direction Ascend and Descend Stair Climbing Technique Step Over Step Number of Steps Climbed 4 Stair Climbing Set # Repetitions (reps) 2 Comments Stair Climbing Comments used one rail. PT-OP-H Neuro Start: 10/02/18 13:36 Freq: Status: Active Protocol: Document 10/02/18 09:50 RCC (Rec: 10/02/18 13:42 RCC [email or web address]) Vital Signs Blood Pressure left arm Blood Pressure (90/60-120/80 mmHg) 142/84 H Blood Pressure Source Manual Cuff PT-OP-M Strength Start: 05/02/18 13:13 Freq: Status: Active Protocol: Document 08/19/18 13:45 RCC (Rec: 08/20/18 11:07 RCC [email or web address]) Hip Strength Hip Manual Muscle Testing Right Flexion (L2) 4 Good External Rotation 3+ Fair+ Internal Rotation 4+ Good+ Left Flexion (L2) 5 Normal External Rotation 3+ Fair+ Internal Rotation 4+ Good+ Knee Strength Knee Manual Muscle Testing Right Flexion (S2) 5 Normal Extension (L3) 5 Normal Left Flexion (S2) 4+ Good+ Extension (L3) 4+ Good+ Ankle/Foot Strength Ankle and Foot Manual Muscle Testing Right Dorsiflexion (L4) 4+ Good+ Left Dorsiflexion (L4) 4+ Good+ PT-OP-Q Treatments Start: 05/02/18 13:13 Freq: Status: Active Protocol: Document 10/14/18 14:26 GGD (Rec: 10/14/18 14:32 GGD [email or web address]) Therapeutic Exercises Supine Exercises SLR- hip flexion Side bilateral Reps/Minutes 2x5 hip er/abd Resistance L 3 Equipment Used thera band Reps/Minutes 15 x 4 Supine Exercise Name bridges Reps/Minutes 10 Standing Exercises heel cord stretch Standing Exercise Name heel cord stretch Side bilateral Equipment Used HOLLY Reps/Minutes 2x30 sec HS stretch Standing Exercise Name hamstring stretch Side bilateral Equipment Used stairs Reps/Minutes 2x30 sec resisted walking Standing Exercise Name lateral, fwd, bkwd Side bilateral Resistance Green Equipment Used T-band Reps/Minutes 2 laps Therapeutic Activity Therapeutic Activity 6 MWT Comments 6 Minute Walk Test Manual Therapy Treatment Soft Tissue Mobilization gluteals and piriformis Mobilization Type Myofascial Release Rolling Intensity/Depth Moderate Body Position Sidelying Comments bilateral lumbar paraspinals and QL Mobilization Type Myofascial Release Rolling Intensity/Depth Moderate Body Position Sidelying PT-OP-R Modalities Start: 05/02/18 13:13 Freq: Status: Active Protocol: Document 08/07/18 12:00 RCC (Rec: 08/07/18 15:09 RCC [email or web address]) Hot Pack/Cold Pack Treatment Cold Pack Location bilateral hip/buttock Patient Position Hooklying Treatment Duration (minutes) 10 Patient Tolerance Good Comments strap for compression PT-OP-T Assessment and Plan Start: 05/02/18 13:13 Freq: Status: Active Protocol: Document 10/14/18 14:26 GGD (Rec: 10/14/18 14:38 GGD [email or web address]) Physical Therapy Assessment Goals Stair climbing Service Line Bus Cleaner Goal (LTG) climb stair without holding railings x 4 steps x2 10/14/18 climbed stairs with one rail LTG Duration 8 weeks 6 minute walk test Impairment 6 MWT- 862 ft Short Term Goal (STG) >1,000 ft with 6 Minute Walk Test to improve exercise tolerance and decrease risk for falls. *not tested 08/19/18 d/t new onset pain 10/14/18 837 ft with increase in hip pain STG Duration 4 weeks Senior Living Goal (LTG) >1,200 ft with 6 Minute Walk Test to improve exercise tolerance and decrease risk for falls. LTG Duration 8 weeks trail walking Impairment inability to walk on trails due to pain and fatigue Short Term Goal (STG) pt will walk outdoors on trails with bilateral walking sticks for 15 min, 3 days per week. 10/14/18 walking indoors only *walking outdoors 2 days per week until this week d/t new onset pain 08/19/18 STG Duration 4 weeks Service Line Bus Cleaner Goal (LTG) pt will walk outdoors on trails with bilateral walking sticks for 30 min, 5 days per week as part of an indep. home program for exercise and cardiovascular benefits. LTG Duration 8 weeks LE strength Impairment LE weakness Short Term Goal (STG) 4/5 or greater LE strength with MMT to improve functional mobility and tolerance to stairs in community. *good progress- hip ER still < 4/5 with MMT but improved 08/19 STG Duration 4 weeks Senior Living Goal (LTG) 4+/5 or greater LE strength with MMT to improve functional moblity and tolerance to stairs in community. LTG Duration 8 weeks Assessment Summary Assessment He was able to complete 6 Minute Walk had increase in hip pain that limit tolerance. He is progressing with core and hip strength. Pt is improving, slowly, but continues to be highly motivated to improve strength. Physical Therapy Plan Frequency and Duration Frequency of Treatment 2x/Week Duration of Treatment 8 weeks Plan of Care Start Date 10/14/18 Plan of Care End Date 12/02/18 Next Visit Focus/Plan Next Note Type Treatment Note Next Visit Plan slow progression back to resistance training as able; gentle core stability training
--- NOTE | 2018-10-14 17:43 | PT.OPPN ---
Current Diagnoses Myositis, unspecified (10/14/18) Physical Therapy Progress Note PT-OP-A Visit Information Start: 05/02/18 13:13 Freq: Status: Active Protocol: Document 10/14/18 14:26 GGD (Rec: 10/14/18 14:30 GGD [email or web address]) Out-Patient Physical Therapy Visit Information Visit Information Visit Type Treatment Note Visit Start Time 14:30 Visit Stop Time 15:15 Total Visit Minutes 40 Visit Number 44 Number of BUYER Visits 3 Evaluation Information Evaluation Date 05/01/18 PT-OP-B Current Condition Start: 05/02/18 13:13 Freq: Status: Active Protocol: Document 05/01/18 12:45 RCC (Rec: 05/02/18 13:42 RCC [email or web address]) Current Condition History of Current Condition Onset Date 2015 Current Complaints SOB, weakness, unable to ambulate for exercise, pain all over body History of Current Condition Pt is a 73 y/o male presenting to physical therapy with a c/ o weakness, SOB with activity, pain throughout the body and inability to walk outdoors for exercise. 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 He states that initially his weakness and loss of function gradually started in 2015 after his from cancer. Pt admits he would sit for 6-8 hours a day, doing nothing. He has a complex medical history (see below). Pt admits that now he is embarrassed to see what little exercise he can do now but is extremely motivated to get better. He has found a female partner which he would like to be able to walk outdoors on trails with. 2 years ago, he was able to walk about 2.5 miles using walking sticks/poles. Treatment Goals Patient/Caregiver Goals walk outdoors on trails for exercise (walking on pavement increases his arthritic pain). Prior Functional Status Baseline Function- Mobility Modified Independent Baseline Function- Gait modified indep with increased time to travel community distances Baseline Function- Recreation/Hobbies trail walking 2.5 miles with walking sticks (2 yrs ago) Current Functional Impairments (Reported) Functional Limitations- Mobility/Gait fatigue/SOB and increased pain with community ambulation Functional Limitations- Recreation/ unable to perform Hobbies Personal Factors Other Personal Factors That May Effect cardiac history with 2 stents Therapy/Recovery placed, OA, L popliteal artery surgery/reconstruction, h/o prostate CA with radiation (45 sessions), HTN, B MIGUEL, depression since 2016 ( of spouse), multiple back and knee surgeries. PT-OP-C Subjective Start: 05/02/18 13:13 Freq: Status: Active Protocol: Document 10/14/18 14:26 GGD (Rec: 10/14/18 14:30 GGD [email or web address]) OP-PT Subjective Patient Comments Patient Comments Pt states he stopped the increase in BP medication due to increase in pain, fatgue and light headiness. PT-OP-E Functional Tests Start: 05/02/18 13:13 Freq: Status: Active Protocol: Document 10/14/18 14:30 GGD (Rec: 10/14/18 14:32 GGD [email or web address]) Functional Tests 6 Minute Walk Test Distance 837 Comments increase in hip pain. PT-OP-F Manual Assessment Start: 08/21/18 11:30 Freq: Status: Active Protocol: Document 09/25/18 16:02 RCC (Rec: 09/25/18 17:07 RCC [email or web address]) Manual Assessments Soft Tissue Assessment Soft Tissue Mobility Assessment mild tension in R QL and slight in iliopsoas on the R. PT-OP-G Mobility & Gait Start: 05/02/18 13:13 Freq: Status: Active Protocol: Document 10/14/18 14:26 GGD (Rec: 10/14/18 14:30 GGD [email or web address]) Stair Climbing Evaluation Technique/Endurance Stair Climbing Direction Ascend and Descend Stair Climbing Technique Step Over Step Number of Steps Climbed 4 Stair Climbing Set # Repetitions (reps) 2 Comments Stair Climbing Comments used one rail. PT-OP-H Neuro Start: 10/02/18 13:36 Freq: Status: Active Protocol: Document 10/02/18 09:50 RCC (Rec: 10/02/18 13:42 RCC [email or web address]) Vital Signs Blood Pressure left arm Blood Pressure (90/60-120/80 mmHg) 142/84 H Blood Pressure Source Manual Cuff PT-OP-M Strength Start: 05/02/18 13:13 Freq: Status: Active Protocol: Document 08/19/18 13:45 RCC (Rec: 08/20/18 11:07 RCC [email or web address]) Hip Strength Hip Manual Muscle Testing Right Flexion (L2) 4 Good External Rotation 3+ Fair+ Internal Rotation 4+ Good+ Left Flexion (L2) 5 Normal External Rotation 3+ Fair+ Internal Rotation 4+ Good+ Knee Strength Knee Manual Muscle Testing Right Flexion (S2) 5 Normal Extension (L3) 5 Normal Left Flexion (S2) 4+ Good+ Extension (L3) 4+ Good+ Ankle/Foot Strength Ankle and Foot Manual Muscle Testing Right Dorsiflexion (L4) 4+ Good+ Left Dorsiflexion (L4) 4+ Good+ PT-OP-T Assessment and Plan Start: 05/02/18 13:13 Freq: Status: Active Protocol: Document 10/14/18 14:26 GGD (Rec: 10/14/18 14:38 GGD [email or web address]) Physical Therapy Assessment Goals Stair climbing Assisted Goal (LTG) climb stair without holding railings x 4 steps x2 10/14/18 climbed stairs with one rail LTG Duration 8 weeks 6 minute walk test Impairment 6 MWT- 862 ft Short Term Goal (STG) >1,000 ft with 6 Minute Walk Test to improve exercise tolerance and decrease risk for falls. *not tested 08/19/18 d/t new onset pain 10/14/18 837 ft with increase in hip pain STG Duration 4 weeks Assisted Goal (LTG) >1,200 ft with 6 Minute Walk Test to improve exercise tolerance and decrease risk for falls. LTG Duration 8 weeks trail walking Impairment inability to walk on trails due to pain and fatigue Short Term Goal (STG) pt will walk outdoors on trails with bilateral walking sticks for 15 min, 3 days per week. 10/14/18 walking indoors only *walking outdoors 2 days per week until this week d/t new onset pain 08/19/18 STG Duration 4 weeks Small Boat Engineer Goal (LTG) pt will walk outdoors on trails with bilateral walking sticks for 30 min, 5 days per week as part of an indep. home program for exercise and cardiovascular benefits. LTG Duration 8 weeks LE strength Impairment LE weakness Short Term Goal (STG) 4/5 or greater LE strength with MMT to improve functional mobility and tolerance to stairs in community. *good progress- hip ER still < 4/5 with MMT but improved 08/19 STG Duration 4 weeks Small Boat Engineer Goal (LTG) 4+/5 or greater LE strength with MMT to improve functional moblity and tolerance to stairs in community. LTG Duration 8 weeks Assessment Summary Assessment He was able to complate 6 Minute Walk had increase in hip pain that limit tolerance. He is progressing with core and hip strength. Pt is improving, slowly, but continues to be highly motivated to improve strength. Physical Therapy Plan Frequency and Duration Frequency of Treatment 2x/Week Duration of Treatment 8 weeks Plan of Care Start Date 10/14/18 Plan of Care End Date 12/02/18 Next Visit Focus/Plan Next Note Type Treatment Note Next Visit Plan slow progression back to resistance training as able; gentle core stability training
--- NOTE | 2018-10-14 17:44 | PT.OPPOC ---
Current Diagnoses Myositis, unspecified (10/14/18) Provider Visit Care Team Role Provider Type Clement Deleon MD Family Provider Non-Staff Specialty: Cardiology Address: [address] [place] [address] [address], [place], [address] Email: Spike Mojica MD Attending Provider Physician Primary Care Provider Specialty: Family Practice Address: [address] [facility] [place], [address] Email: Plan Of Care PT-OP-T Assessment and Plan Start: 05/02/18 13:13 Freq: Status: Active Protocol: Document 10/14/18 14:26 GGD (Rec: 10/14/18 14:38 GGD [email or web address]) Physical Therapy Assessment Goals Stair climbing Cadd Manager Goal (LTG) climb stair without holding railings x 4 steps x2 10/14/18 climbed stairs with one rail LTG Duration 8 weeks 6 minute walk test Impairment 6 MWT- 862 ft Short Term Goal (STG) >1,000 ft with 6 Minute Walk Test to improve exercise tolerance and decrease risk for falls. *not tested 08/19/18 d/t new onset pain 10/14/18 837 ft with increase in hip pain STG Duration 4 weeks Cadd Manager Goal (LTG) >1,200 ft with 6 Minute Walk Test to improve exercise tolerance and decrease risk for falls. LTG Duration 8 weeks trail walking Impairment inability to walk on trails due to pain and fatigue Short Term Goal (STG) pt will walk outdoors on trails with bilateral walking sticks for 15 min, 3 days per week. 10/14/18 walking indoors only *walking outdoors 2 days per week until this week d/t new onset pain 08/19/18 STG Duration 4 weeks Cadd Manager Goal (LTG) pt will walk outdoors on trails with bilateral walking sticks for 30 min, 5 days per week as part of an indep. home program for exercise and cardiovascular benefits. LTG Duration 8 weeks LE strength Impairment LE weakness Short Term Goal (STG) 4/5 or greater LE strength with MMT to improve functional mobility and tolerance to stairs in community. *good progress- hip ER still < 4/5 with MMT but improved 08/19 STG Duration 4 weeks Cadd Manager Goal (LTG) 4+/5 or greater LE strength with MMT to improve functional moblity and tolerance to stairs in community. LTG Duration 8 weeks Assessment Summary Assessment He was able to complate 6 Minute Walk had increase in hip pain that limit tolerance. He is progressing with core and hip strength. Pt is improving, slowly, but continues to be highly motivated to improve strength. Physical Therapy Plan Frequency and Duration Frequency of Treatment 2x/Week Duration of Treatment 8 weeks Plan of Care Start Date 10/14/18 Plan of Care End Date 12/02/18 Next Visit Focus/Plan Next Note Type Treatment Note Next Visit Plan slow progression back to resistance training as able; gentle core stability training Plan of Care Dates Plan of Care Start Date 10/14/18 Plan of Care End Date 12/02/18 Please Sign and Return: I have reviewed this Plan of Care and certify that the skilled therapy services above are required to meet the patient?s needs. Physician Signature Date Printed Name and Credentials Clinical Instructor Signature Printed Name and Credentials
--- NOTE | 2018-10-16 16:46 | PT.OTN ---
Current Diagnoses Myositis, unspecified (10/16/18) Physical Therapy Treatment Note PT-OP-A Visit Information Start: 05/02/18 13:13 Freq: Status: Active Protocol: Document 10/16/18 16:31 SA (Rec: 10/16/18 16:46 SA [email or web address]) Out-Patient Physical Therapy Visit Information Visit Information Visit Type Treatment Note Visit Start Time 13:45 Visit Stop Time 14:30 Total Visit Minutes 45 Visit Number 45 Number of WRAPPER HANDS SPRAYER Visits 4 PT-OP-B Current Condition Start: 05/02/18 13:13 Freq: Status: Active Protocol: Document 05/01/18 12:45 RCC (Rec: 05/02/18 13:42 RCC [email or web address]) Current Condition History of Current Condition Onset Date 2015 Current Complaints SOB, weakness, unable to ambulate for exercise, pain all over body History of Current Condition Pt is a 73 y/o male presenting to physical therapy with a c/ o weakness, SOB with activity, pain throughout the body and inability to walk outdoors for exercise. 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 He states that initially his weakness and loss of function gradually started in 2015 after his from cancer. Pt admits he would sit for 6-8 hours a day, doing nothing. He has a complex medical history (see below). Pt admits that now he is embarrassed to see what little exercise he can do now but is extremely motivated to get better. He has found a female partner which he would like to be able to walk outdoors on trails with. 2 years ago, he was able to walk about 2.5 miles using walking sticks/poles. Treatment Goals Patient/Caregiver Goals walk outdoors on trails for exercise (walking on pavement increases his arthritic pain). Prior Functional Status Baseline Function- Mobility Modified Independent Baseline Function- Gait modified indep with increased time to travel community distances Baseline Function- Recreation/Hobbies trail walking 2.5 miles with walking sticks (2 yrs ago) Current Functional Impairments (Reported) Functional Limitations- Mobility/Gait fatigue/SOB and increased pain with community ambulation Functional Limitations- Recreation/ unable to perform Hobbies Personal Factors Other Personal Factors That May Effect cardiac history with 2 stents Therapy/Recovery placed, OA, L popliteal artery surgery/reconstruction, h/o prostate CA with radiation (45 sessions), HTN, B MIGUEL, depression since 2016 ( of spouse), multiple back and knee surgeries. PT-OP-C Subjective Start: 05/02/18 13:13 Freq: Status: Active Protocol: Document 10/16/18 16:31 SA (Rec: 10/16/18 16:46 SA [email or web address]) OP-PT Subjective Patient Comments Patient Comments Pt has hasd no c/o dizziness since recent med decrease, has been checking BP 3x/day and it has been normal for him. PT-OP-E Functional Tests Start: 05/02/18 13:13 Freq: Status: Active Protocol: Document 10/14/18 14:30 GGD (Rec: 10/14/18 14:32 GGD [email or web address]) Functional Tests 6 Minute Walk Test Distance 837 Comments increase in hip pain. PT-OP-F Manual Assessment Start: 08/21/18 11:30 Freq: Status: Active Protocol: Document 09/25/18 16:02 RCC (Rec: 09/25/18 17:07 RCC [email or web address]) Manual Assessments Soft Tissue Assessment Soft Tissue Mobility Assessment mild tension in R QL and slight in iliopsoas on the R. PT-OP-G Mobility & Gait Start: 05/02/18 13:13 Freq: Status: Active Protocol: Document 10/14/18 14:26 GGD (Rec: 10/14/18 14:30 GGD [email or web address]) Stair Climbing Evaluation Technique/Endurance Stair Climbing Direction Ascend and Descend Stair Climbing Technique Step Over Step Number of Steps Climbed 4 Stair Climbing Set # Repetitions (reps) 2 Comments Stair Climbing Comments used one rail. PT-OP-H Neuro Start: 10/02/18 13:36 Freq: Status: Active Protocol: Document 10/02/18 09:50 RCC (Rec: 10/02/18 13:42 RCC [email or web address]) Vital Signs Blood Pressure left arm Blood Pressure (90/60-120/80 mmHg) 142/84 H Blood Pressure Source Manual Cuff PT-OP-M Strength Start: 05/02/18 13:13 Freq: Status: Active Protocol: Document 08/19/18 13:45 RCC (Rec: 08/20/18 11:07 RCC [email or web address]) Hip Strength Hip Manual Muscle Testing Right Flexion (L2) 4 Good External Rotation 3+ Fair+ Internal Rotation 4+ Good+ Left Flexion (L2) 5 Normal External Rotation 3+ Fair+ Internal Rotation 4+ Good+ Knee Strength Knee Manual Muscle Testing Right Flexion (S2) 5 Normal Extension (L3) 5 Normal Left Flexion (S2) 4+ Good+ Extension (L3) 4+ Good+ Ankle/Foot Strength Ankle and Foot Manual Muscle Testing Right Dorsiflexion (L4) 4+ Good+ Left Dorsiflexion (L4) 4+ Good+ PT-OP-Q Treatments Start: 05/02/18 13:13 Freq: Status: Active Protocol: Document 10/16/18 16:31 SA (Rec: 10/16/18 16:46 SA [email or web address]) Cardio Equipment Recumbent Stepper (Sci-Fit) Duration (Minutes) 10 Resistance 4 Seat Position 16 Other 1.63 dist Therapeutic Exercises Supine Exercises SLR- hip flexion Side bilateral Reps/Minutes 2 x 6 hip er/abd Resistance L 3 Equipment Used thera band Reps/Minutes 20x 4 Supine Exercise Name bridges Reps/Minutes 10 Standing Exercises heel cord stretch Standing Exercise Name heel cord stretch Side bilateral Equipment Used HOLLY Reps/Minutes 2x30 sec HS stretch Standing Exercise Name hamstring stretch Side bilateral Equipment Used stairs Reps/Minutes 2x30 sec resisted walking Standing Exercise Name lateral, fwd, bkwd Side bilateral Resistance Green Equipment Used T-band Reps/Minutes 2 laps Manual Therapy Treatment Soft Tissue Mobilization gluteals and piriformis Mobilization Type Myofascial Release Rolling Intensity/Depth Moderate Body Position Sidelying Comments bilateral lumbar paraspinals and QL Mobilization Type Myofascial Release Rolling Intensity/Depth Moderate Body Position Sidelying PT-OP-R Modalities Start: 05/02/18 13:13 Freq: Status: Active Protocol: Document 08/07/18 12:00 RCC (Rec: 08/07/18 15:09 RCC [email or web address]) Hot Pack/Cold Pack Treatment Cold Pack Location bilateral hip/buttock Patient Position Hooklying Treatment Duration (minutes) 10 Patient Tolerance Good Comments strap for compression PT-OP-T Assessment and Plan Start: 05/02/18 13:13 Freq: Status: Active Protocol: Document 10/16/18 16:31 SA (Rec: 10/16/18 16:46 SA [email or web address]) Physical Therapy Assessment Assessment Summary Assessment Gradual increase in LE and core strength, had recent increase in pain from doing activity outside on sloped surface. Physical Therapy Plan Next Visit Focus/Plan Next Note Type Treatment Note Next Visit Plan Cont with gentle core stab progressions and LE strengthening.
--- NOTE | 2018-10-21 12:59 | PT.OTN ---
Current Diagnoses Myositis, unspecified (10/21/18) Physical Therapy Treatment Note PT-OP-A Visit Information Start: 05/02/18 13:13 Freq: Status: Active Protocol: Document 10/21/18 12:50 SA (Rec: 10/21/18 12:59 SA [email or web address]) Out-Patient Physical Therapy Visit Information Visit Information Visit Type Treatment Note Visit Start Time 11:15 Visit Stop Time 12:00 Visit Number 45 Number of LEARNING CENTER COORDINATOR Visits 5 PT-OP-B Current Condition Start: 05/02/18 13:13 Freq: Status: Active Protocol: Document 05/01/18 12:45 RCC (Rec: 05/02/18 13:42 RCC [email or web address]) Current Condition History of Current Condition Onset Date 2015 Current Complaints SOB, weakness, unable to ambulate for exercise, pain all over body History of Current Condition Pt is a 73 y/o male presenting to physical therapy with a c/ o weakness, SOB with activity, pain throughout the body and inability to walk outdoors for exercise. 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 He states that initially his weakness and loss of function gradually started in 2015 after his from cancer. Pt admits he would sit for 6-8 hours a day, doing nothing. He has a complex medical history (see below). Pt admits that now he is embarrassed to see what little exercise he can do now but is extremely motivated to get better. He has found a female partner which he would like to be able to walk outdoors on trails with. 2 years ago, he was able to walk about 2.5 miles using walking sticks/poles. Treatment Goals Patient/Caregiver Goals walk outdoors on trails for exercise (walking on pavement increases his arthritic pain). Prior Functional Status Baseline Function- Mobility Modified Independent Baseline Function- Gait modified indep with increased time to travel community distances Baseline Function- Recreation/Hobbies trail walking 2.5 miles with walking sticks (2 yrs ago) Current Functional Impairments (Reported) Functional Limitations- Mobility/Gait fatigue/SOB and increased pain with community ambulation Functional Limitations- Recreation/ unable to perform Hobbies Personal Factors Other Personal Factors That May Effect cardiac history with 2 stents Therapy/Recovery placed, OA, L popliteal artery surgery/reconstruction, h/o prostate CA with radiation (45 sessions), HTN, B MIGUEL, depression since 2016 ( of spouse), multiple back and knee surgeries. PT-OP-C Subjective Start: 05/02/18 13:13 Freq: Status: Active Protocol: Document 10/21/18 12:50 SA (Rec: 10/21/18 12:59 SA [email or web address]) OP-PT Subjective Patient Comments Patient Comments Pt reports feeling very discouraged today, unable to perform easy brick path project at home d/t inability to get up and down from quadriped position. Pt states he knows PT is helping but he wishes he was able to do more. PT-OP-E Functional Tests Start: 05/02/18 13:13 Freq: Status: Active Protocol: Document 10/14/18 14:30 GGD (Rec: 10/14/18 14:32 GGD [email or web address]) Functional Tests 6 Minute Walk Test Distance 837 Comments increase in hip pain. PT-OP-F Manual Assessment Start: 08/21/18 11:30 Freq: Status: Active Protocol: Document 09/25/18 16:02 RCC (Rec: 09/25/18 17:07 RCC [email or web address]) Manual Assessments Soft Tissue Assessment Soft Tissue Mobility Assessment mild tension in R QL and slight in iliopsoas on the R. PT-OP-G Mobility & Gait Start: 05/02/18 13:13 Freq: Status: Active Protocol: Document 10/14/18 14:26 GGD (Rec: 10/14/18 14:30 GGD [email or web address]) Stair Climbing Evaluation Technique/Endurance Stair Climbing Direction Ascend and Descend Stair Climbing Technique Step Over Step Number of Steps Climbed 4 Stair Climbing Set # Repetitions (reps) 2 Comments Stair Climbing Comments used one rail. PT-OP-H Neuro Start: 10/02/18 13:36 Freq: Status: Active Protocol: Document 10/02/18 09:50 RCC (Rec: 10/02/18 13:42 RCC [email or web address]) Vital Signs Blood Pressure left arm Blood Pressure (90/60-120/80 mmHg) 142/84 H Blood Pressure Source Manual Cuff PT-OP-M Strength Start: 05/02/18 13:13 Freq: Status: Active Protocol: Document 08/19/18 13:45 RCC (Rec: 08/20/18 11:07 RCC [email or web address]) Hip Strength Hip Manual Muscle Testing Right Flexion (L2) 4 Good External Rotation 3+ Fair+ Internal Rotation 4+ Good+ Left Flexion (L2) 5 Normal External Rotation 3+ Fair+ Internal Rotation 4+ Good+ Knee Strength Knee Manual Muscle Testing Right Flexion (S2) 5 Normal Extension (L3) 5 Normal Left Flexion (S2) 4+ Good+ Extension (L3) 4+ Good+ Ankle/Foot Strength Ankle and Foot Manual Muscle Testing Right Dorsiflexion (L4) 4+ Good+ Left Dorsiflexion (L4) 4+ Good+ PT-OP-Q Treatments Start: 05/02/18 13:13 Freq: Status: Active Protocol: Document 10/21/18 12:50 SA (Rec: 10/21/18 12:59 SA [email or web address]) Cardio Equipment Recumbent Stepper (Sci-Fit) Duration (Minutes) 10 Resistance 4.2 Seat Position 16 Other 1.72 dist Therapeutic Exercises Supine Exercises hip er/abd Resistance L 3 Equipment Used thera band Reps/Minutes 20x 4 Supine Exercise Name bridges Reps/Minutes 10 Sitting Exercises Seated HS curls Side bilateral Resistance 3# TB Reps/Minutes 12 x each Standing Exercises HS stretch Standing Exercise Name hamstring stretch Side bilateral Reps/Minutes 2x30 sec resisted walking Standing Exercise Name lateral, fwd, bkwd Side bilateral Resistance Green Equipment Used T-band Reps/Minutes 2 laps Manual Therapy Treatment Soft Tissue Mobilization gluteals and piriformis Mobilization Type Myofascial Release Rolling Intensity/Depth Moderate Body Position Sidelying Comments bilateral lumbar paraspinals and QL Mobilization Type Myofascial Release Rolling Intensity/Depth Moderate Body Position Sidelying PT-OP-R Modalities Start: 05/02/18 13:13 Freq: Status: Active Protocol: Document 08/07/18 12:00 RCC (Rec: 08/07/18 15:09 RCC [email or web address]) Hot Pack/Cold Pack Treatment Cold Pack Location bilateral hip/buttock Patient Position Hooklying Treatment Duration (minutes) 10 Patient Tolerance Good Comments strap for compression PT-OP-T Assessment and Plan Start: 05/02/18 13:13 Freq: Status: Active Protocol: Document 10/21/18 12:50 SA (Rec: 10/21/18 12:59 SA [email or web address]) Physical Therapy Assessment Assessment Summary Assessment Pt BP after cardio 150/85. Review of gentle HEP and handout printed for patient( seated HS curls, supine hip ABD/ER and bridging) Pt did not tolerate shallow wall squat. Physical Therapy Plan Next Visit Focus/Plan Next Note Type Treatment Note Next Visit Plan Cont with gentle core stab progressions and LE strengthening.
--- NOTE | 2018-10-27 15:15 | PT.OTN ---
Current Diagnoses Myositis, unspecified (10/27/18) Physical Therapy Treatment Note PT-OP-A Visit Information Start: 05/02/18 13:13 Freq: Status: Active Protocol: Document 10/27/18 14:30 DCW (Rec: 10/27/18 15:15 DCW [id number]) Out-Patient Physical Therapy Visit Information Visit Information Visit Type Treatment Note Visit Start Time 14:30 Visit Stop Time 15:15 Total Visit Minutes 45 Visit Number 47 Number of DIRECTOR RADIATION ONCOLOGY Visits 0 Evaluation Information Evaluation Date 05/01/18 PT-OP-B Current Condition Start: 05/02/18 13:13 Freq: Status: Active Protocol: Document 05/01/18 12:45 RCC (Rec: 05/02/18 13:42 RCC [email or web address]) Current Condition History of Current Condition Onset Date 2015 Current Complaints SOB, weakness, unable to ambulate for exercise, pain all over body History of Current Condition Pt is a 73 y/o male presenting to physical therapy with a c/ o weakness, SOB with activity, pain throughout the body and inability to walk outdoors for exercise. 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 He states that initially his weakness and loss of function gradually started in 2015 after his from cancer. Pt admits he would sit for 6-8 hours a day, doing nothing. He has a complex medical history (see below). Pt admits that now he is embarrassed to see what little exercise he can do now but is extremely motivated to get better. He has found a female partner which he would like to be able to walk outdoors on trails with. 2 years ago, he was able to walk about 2.5 miles using walking sticks/poles. Treatment Goals Patient/Caregiver Goals walk outdoors on trails for exercise (walking on pavement increases his arthritic pain). Prior Functional Status Baseline Function- Mobility Modified Independent Baseline Function- Gait modified indep with increased time to travel community distances Baseline Function- Recreation/Hobbies trail walking 2.5 miles with walking sticks (2 yrs ago) Current Functional Impairments (Reported) Functional Limitations- Mobility/Gait fatigue/SOB and increased pain with community ambulation Functional Limitations- Recreation/ unable to perform Hobbies Personal Factors Other Personal Factors That May Effect cardiac history with 2 stents Therapy/Recovery placed, OA, L popliteal artery surgery/reconstruction, h/o prostate CA with radiation (45 sessions), HTN, B MIGUEL, depression since 2016 ( of spouse), multiple back and knee surgeries. PT-OP-C Subjective Start: 05/02/18 13:13 Freq: Status: Active Protocol: Document 10/27/18 14:30 DCW (Rec: 10/27/18 15:15 DCW [id number]) OP-PT Subjective Patient Comments Patient Comments I know the disease is worse, I can tell my balance is going , my knees can't support me very well when I start to bend them, but I'm learning. I've learned how to mete out my energy, how to deal with off days. PT-OP-E Functional Tests Start: 05/02/18 13:13 Freq: Status: Active Protocol: Document 10/14/18 14:30 GGD (Rec: 10/14/18 14:32 GGD [email or web address]) Functional Tests 6 Minute Walk Test Distance 837 Comments increase in hip pain. PT-OP-F Manual Assessment Start: 08/21/18 11:30 Freq: Status: Active Protocol: Document 09/25/18 16:02 RCC (Rec: 09/25/18 17:07 RCC [email or web address]) Manual Assessments Soft Tissue Assessment Soft Tissue Mobility Assessment mild tension in R QL and slight in iliopsoas on the R. PT-OP-G Mobility & Gait Start: 05/02/18 13:13 Freq: Status: Active Protocol: Document 10/14/18 14:26 GGD (Rec: 10/14/18 14:30 GGD [email or web address]) Stair Climbing Evaluation Technique/Endurance Stair Climbing Direction Ascend and Descend Stair Climbing Technique Step Over Step Number of Steps Climbed 4 Stair Climbing Set # Repetitions (reps) 2 Comments Stair Climbing Comments used one rail. PT-OP-H Neuro Start: 10/02/18 13:36 Freq: Status: Active Protocol: Document 10/02/18 09:50 RCC (Rec: 10/02/18 13:42 RCC [email or web address]) Vital Signs Blood Pressure left arm Blood Pressure (90/60-120/80 mmHg) 142/84 H Blood Pressure Source Manual Cuff PT-OP-M Strength Start: 05/02/18 13:13 Freq: Status: Active Protocol: Document 08/19/18 13:45 RCC (Rec: 08/20/18 11:07 RCC [email or web address]) Hip Strength Hip Manual Muscle Testing Right Flexion (L2) 4 Good External Rotation 3+ Fair+ Internal Rotation 4+ Good+ Left Flexion (L2) 5 Normal External Rotation 3+ Fair+ Internal Rotation 4+ Good+ Knee Strength Knee Manual Muscle Testing Right Flexion (S2) 5 Normal Extension (L3) 5 Normal Left Flexion (S2) 4+ Good+ Extension (L3) 4+ Good+ Ankle/Foot Strength Ankle and Foot Manual Muscle Testing Right Dorsiflexion (L4) 4+ Good+ Left Dorsiflexion (L4) 4+ Good+ PT-OP-Q Treatments Start: 05/02/18 13:13 Freq: Status: Active Protocol: Document 10/27/18 14:30 DCW (Rec: 10/27/18 15:15 DCW [id number]) Cardio Equipment Recumbent Stepper (Sci-Fit) Duration (Minutes) 10 Resistance 4.1 Seat Position 16 Other 1.96 dist Therapeutic Exercises Standing Exercises heel cord stretch Standing Exercise Name heel cord stretch Side bilateral Equipment Used HOLLY Reps/Minutes 2x30 sec HS stretch Standing Exercise Name hamstring stretch Side bilateral Equipment Used stairs Reps/Minutes 2x30 sec resisted walking Standing Exercise Name lateral, fwd, bkwd Side bilateral Resistance Green Equipment Used T-band Reps/Minutes 2 laps Manual Therapy Treatment Soft Tissue Mobilization gluteals and piriformis Mobilization Type Myofascial Release Rolling Intensity/Depth Moderate Body Position Sidelying Comments bilateral lumbar paraspinals and QL Mobilization Type Myofascial Release Rolling Intensity/Depth Moderate Body Position Sidelying PT-OP-R Modalities Start: 05/02/18 13:13 Freq: Status: Active Protocol: Document 08/07/18 12:00 RCC (Rec: 08/07/18 15:09 RCC [email or web address]) Hot Pack/Cold Pack Treatment Cold Pack Location bilateral hip/buttock Patient Position Hooklying Treatment Duration (minutes) 10 Patient Tolerance Good Comments strap for compression PT-OP-T Assessment and Plan Start: 05/02/18 13:13 Freq: Status: Active Protocol: Document 10/27/18 14:30 DCW (Rec: 10/27/18 15:15 DCW [id number]) Physical Therapy Assessment Goals Stair climbing Custodial Goal (LTG) climb stair without holding railings x 4 steps x2 10/14/18 climbed stairs with one rail LTG Duration 8 weeks 6 minute walk test Impairment 6 MWT- 862 ft Short Term Goal (STG) >1,000 ft with 6 Minute Walk Test to improve exercise tolerance and decrease risk for falls. *not tested 08/19/18 d/t new onset pain 10/14/18 837 ft with increase in hip pain STG Duration 4 weeks Custodial Goal (LTG) >1,200 ft with 6 Minute Walk Test to improve exercise tolerance and decrease risk for falls. LTG Duration 8 weeks trail walking Impairment inability to walk on trails due to pain and fatigue Short Term Goal (STG) pt will walk outdoors on trails with bilateral walking sticks for 15 min, 3 days per week. 10/14/18 walking indoors only *walking outdoors 2 days per week until this week d/t new onset pain 08/19/18 STG Duration 4 weeks Custodial Goal (LTG) pt will walk outdoors on trails with bilateral walking sticks for 30 min, 5 days per week as part of an indep. home program for exercise and cardiovascular benefits. LTG Duration 8 weeks LE strength Impairment LE weakness Short Term Goal (STG) 4/5 or greater LE strength with MMT to improve functional mobility and tolerance to stairs in community. *good progress- hip ER still < 4/5 with MMT but improved 08/19 STG Duration 4 weeks Custodial Goal (LTG) 4+/5 or greater LE strength with MMT to improve functional moblity and tolerance to stairs in community. LTG Duration 8 weeks Assessment Summary Assessment BP increased to 178/100 following resisted side- stepping, so focused shifted to manual treatment. Physical Therapy Plan Frequency and Duration Frequency of Treatment 2x/Week Duration of Treatment 8 weeks Plan of Care Start Date 10/14/18 Plan of Care End Date 12/02/18 Next Visit Focus/Plan Next Note Type Treatment Note Next Visit Plan slow progression back to resistance training as able; gentle core stability training
[2018-10-29 12:05] VITALS: BP 142/84
--- NOTE | 2018-10-29 12:05 | PT.OTN ---
Current Diagnoses Myositis, unspecified (10/29/18) Physical Therapy Treatment Note PT-OP-A Visit Information Start: 05/02/18 13:13 Freq: Status: Active Protocol: Document 10/29/18 12:05 RCC (Rec: 10/29/18 12:58 RCC [email or web address]) Out-Patient Physical Therapy Visit Information Visit Information Visit Type Treatment Note Visit Start Time 12:05 Visit Stop Time 12:49 Total Visit Minutes 44 Visit Number 48 Number of BOAT PERSON Visits 0 Evaluation Information Evaluation Date 05/01/18 Precautions Precautions fall precautions on/off machines PT-OP-B Current Condition Start: 05/02/18 13:13 Freq: Status: Active Protocol: Document 05/01/18 12:45 RCC (Rec: 05/02/18 13:42 RCC [email or web address]) Current Condition History of Current Condition Onset Date 2015 Current Complaints SOB, weakness, unable to ambulate for exercise, pain all over body History of Current Condition Pt is a 73 y/o male presenting to physical therapy with a c/ o weakness, SOB with activity, pain throughout the body and inability to walk outdoors for exercise. 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 He states that initially his weakness and loss of function gradually started in 2016 after his from cancer. Pt admits he would sit for 6-8 hours a day, doing nothing. He has a complex medical history (see below). Pt admits that now he is embarrassed to see what little exercise he can do now but is extremely motivated to get better. He has found a female partner which he would like to be able to walk outdoors on trails with. 2 years ago, he was able to walk about 2.5 miles using walking sticks/poles. Treatment Goals Patient/Caregiver Goals walk outdoors on trails for exercise (walking on pavement increases his arthritic pain). Prior Functional Status Baseline Function- Mobility Modified Independent Baseline Function- Gait modified indep with increased time to travel community distances Baseline Function- Recreation/Hobbies trail walking 2.5 miles with walking sticks (2 yrs ago) Current Functional Impairments (Reported) Functional Limitations- Mobility/Gait fatigue/SOB and increased pain with community ambulation Functional Limitations- Recreation/ unable to perform Hobbies Personal Factors Other Personal Factors That May Effect cardiac history with 2 stents Therapy/Recovery placed, OA, L popliteal artery surgery/reconstruction, h/o prostate CA with radiation (45 sessions), HTN, B MIGUEL, depression since 2016 ( of spouse), multiple back and knee surgeries. PT-OP-C Subjective Start: 05/02/18 13:13 Freq: Status: Active Protocol: Document 10/29/18 12:05 RCC (Rec: 10/29/18 12:58 RCC [email or web address]) OP-PT Subjective Patient Comments Patient Comments Pt states that yesterday was a good day, he felt like he was walking more comfortably and stronger in his legs until the afternoon. PT-OP-E Functional Tests Start: 05/02/18 13:13 Freq: Status: Active Protocol: Document 10/14/18 14:30 GGD (Rec: 10/14/18 14:32 GGD [email or web address]) Functional Tests 6 Minute Walk Test Distance 837 Comments increase in hip pain. PT-OP-F Manual Assessment Start: 08/21/18 11:30 Freq: Status: Active Protocol: Document 09/25/18 16:02 RCC (Rec: 09/25/18 17:07 RCC [email or web address]) Manual Assessments Soft Tissue Assessment Soft Tissue Mobility Assessment mild tension in R QL and slight in iliopsoas on the R. PT-OP-G Mobility & Gait Start: 05/02/18 13:13 Freq: Status: Active Protocol: Document 10/14/18 14:26 GGD (Rec: 10/14/18 14:30 GGD [email or web address]) Stair Climbing Evaluation Technique/Endurance Stair Climbing Direction Ascend and Descend Stair Climbing Technique Step Over Step Number of Steps Climbed 4 Stair Climbing Set # Repetitions (reps) 2 Comments Stair Climbing Comments used one rail. PT-OP-H Neuro Start: 10/02/18 13:36 Freq: Status: Active Protocol: Document 10/29/18 12:05 RCC (Rec: 10/29/18 12:58 RCC [email or web address]) Vital Signs Blood Pressure left arm Blood Pressure (90/60-120/80 mmHg) 142/84 H Blood Pressure Source Manual Cuff Left Upper Extremity PT-OP-M Strength Start: 05/02/18 13:13 Freq: Status: Active Protocol: Document 08/19/18 13:45 RCC (Rec: 08/20/18 11:07 RCC [email or web address]) Hip Strength Hip Manual Muscle Testing Right Flexion (L2) 4 Good External Rotation 3+ Fair+ Internal Rotation 4+ Good+ Left Flexion (L2) 5 Normal External Rotation 3+ Fair+ Internal Rotation 4+ Good+ Knee Strength Knee Manual Muscle Testing Right Flexion (S2) 5 Normal Extension (L3) 5 Normal Left Flexion (S2) 4+ Good+ Extension (L3) 4+ Good+ Ankle/Foot Strength Ankle and Foot Manual Muscle Testing Right Dorsiflexion (L4) 4+ Good+ Left Dorsiflexion (L4) 4+ Good+ PT-OP-Q Treatments Start: 05/02/18 13:13 Freq: Status: Active Protocol: Document 10/29/18 12:05 RCC (Rec: 10/29/18 12:58 [facility] [email or web address]) Cardio Equipment Recumbent Stepper (Sci-Fit) Duration (Minutes) 10 Resistance 4.1 Seat Position 16 Other 1.91 dist Gym Equipment Cable Column (Body Solid) Rows Resistance 50 lbs Reps/Time 2x15 Lat Pull Down Reps/Time 2x15 Therapeutic Exercises Standing Exercises forward march, backward stepping Side bilateral Resistance 2 lb AW Equipment Used // bars Reps/Minutes 6 laps each step ups Standing Exercise Name step ups Side bilateral Resistance 8 inch step Reps/Minutes x10 Comments unilat. rail resisted walking Standing Exercise Name lateral, fwd, bkwd Side bilateral Resistance Green Equipment Used T-band Reps/Minutes 2 laps Other Exercises Hurdles Other Exercise Name step over hurdles in// bars Side bilateral Resistance 2 lb AW Equipment Used // bars Reps/Minutes x8 PT-OP-R Modalities Start: 05/02/18 13:13 Freq: Status: Active Protocol: Document 08/07/18 12:00 RCC (Rec: 08/07/18 15:09 [facility] [email or web address]) Hot Pack/Cold Pack Treatment Cold Pack Location bilateral hip/buttock Patient Position Hooklying Treatment Duration (minutes) 10 Patient Tolerance Good Comments strap for compression PT-OP-T Assessment and Plan Start: 05/02/18 13:13 Freq: Status: Active Protocol: Document 10/29/18 12:05 RCC (Rec: 10/29/18 12:58 [facility] [email or web address]) Physical Therapy Assessment Assessment Summary Assessment Pt's BP 142/84 this session. He was fatigued after LE activities today, but fair pacing of exercises. Pt with occasional circumduction bilaterally stepping over hurdles when fatigued. Physical Therapy Plan Frequency and Duration Frequency of Treatment 2x/Week Duration of Treatment 8 weeks Plan of Care Start Date 10/14/18 Plan of Care End Date 12/02/18 Next Visit Focus/Plan Next Note Type Treatment Note Next Visit Plan cont. to advance core stability, LE strengthening
[2018-11-02 13:34] VITALS: BP 220/78
--- NOTE | 2018-11-02 14:08 | PT.OTN ---
Current Diagnoses Myositis, unspecified (11/02/18) Physical Therapy Treatment Note PT-OP-A Visit Information Start: 05/02/18 13:13 Freq: Status: Active Protocol: Document 11/02/18 13:34 LRN (Rec: 11/02/18 14:00 LRN [id number]) Out-Patient Physical Therapy Visit Information Visit Information Visit Type Treatment Note Visit Start Time 13:35 Visit Stop Time 13:51 Total Visit Minutes 16 Visit Number 49 Number of CARDIOLOGY PHYSICIAN ASSISTANT Visits 0 Evaluation Information Evaluation Date 05/01/18 Precautions Precautions fall precautions on/off machines PT-OP-B Current Condition Start: 05/02/18 13:13 Freq: Status: Active Protocol: Document 05/01/18 12:45 RCC (Rec: 05/02/18 13:42 RCC [email or web address]) Current Condition History of Current Condition Onset Date 2015 Current Complaints SOB, weakness, unable to ambulate for exercise, pain all over body History of Current Condition Pt is a 73 y/o male presenting to physical therapy with a c/ o weakness, SOB with activity, pain throughout the body and inability to walk outdoors for exercise. 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 He states that initially his weakness and loss of function gradually started in 2015 after his from cancer. Pt admits he would sit for 6-8 hours a day, doing nothing. He has a complex medical history (see below). Pt admits that now he is embarrassed to see what little exercise he can do now but is extremely motivated to get better. He has found a female partner which he would like to be able to walk outdoors on trails with. 2 years ago, he was able to walk about 2.5 miles using walking sticks/poles. Treatment Goals Patient/Caregiver Goals walk outdoors on trails for exercise (walking on pavement increases his arthritic pain). Prior Functional Status Baseline Function- Mobility Modified Independent Baseline Function- Gait modified indep with increased time to travel community distances Baseline Function- Recreation/Hobbies trail walking 2.5 miles with walking sticks (2 yrs ago) Current Functional Impairments (Reported) Functional Limitations- Mobility/Gait fatigue/SOB and increased pain with community ambulation Functional Limitations- Recreation/ unable to perform Hobbies Personal Factors Other Personal Factors That May Effect cardiac history with 2 stents Therapy/Recovery placed, OA, L popliteal artery surgery/reconstruction, h/o prostate CA with radiation (45 sessions), HTN, B MIGUEL, depression since 2016 ( of spouse), multiple back and knee surgeries. PT-OP-C Subjective Start: 05/02/18 13:13 Freq: Status: Active Protocol: Document 11/02/18 13:34 LRN (Rec: 11/02/18 14:00 LRN [id number]) OP-PT Subjective Patient Comments Patient Comments Did not get out to walk this weekend, had too much to do at home. PT-OP-E Functional Tests Start: 05/02/18 13:13 Freq: Status: Active Protocol: Document 10/14/18 14:30 GGD (Rec: 10/14/18 14:32 GGD [email or web address]) Functional Tests 6 Minute Walk Test Distance 837 Comments increase in hip pain. PT-OP-F Manual Assessment Start: 08/21/18 11:30 Freq: Status: Active Protocol: Document 09/25/18 16:02 RCC (Rec: 09/25/18 17:07 RCC [email or web address]) Manual Assessments Soft Tissue Assessment Soft Tissue Mobility Assessment mild tension in R QL and slight in iliopsoas on the R. PT-OP-G Mobility & Gait Start: 05/02/18 13:13 Freq: Status: Active Protocol: Document 10/14/18 14:26 GGD (Rec: 10/14/18 14:30 GGD [email or web address]) Stair Climbing Evaluation Technique/Endurance Stair Climbing Direction Ascend and Descend Stair Climbing Technique Step Over Step Number of Steps Climbed 4 Stair Climbing Set # Repetitions (reps) 2 Comments Stair Climbing Comments used one rail. PT-OP-H Neuro Start: 10/02/18 13:36 Freq: Status: Active Protocol: Document 11/02/18 13:34 LRN (Rec: 11/02/18 14:00 LRN [id number]) Vital Signs Blood Pressure left arm Blood Pressure (90/60-120/80 mmHg) 220/70 H Blood Pressure Source Manual Cuff Left Upper Extremity Comments Vital Signs Comments Blood pressure at start of therapy was 160/80. Blood pressure after Sci fit 220/78. PT-OP-M Strength Start: 05/02/18 13:13 Freq: Status: Active Protocol: Document 08/19/18 13:45 RCC (Rec: 08/20/18 11:07 RCC [email or web address]) Hip Strength Hip Manual Muscle Testing Right Flexion (L2) 4 Good External Rotation 3+ Fair+ Internal Rotation 4+ Good+ Left Flexion (L2) 5 Normal External Rotation 3+ Fair+ Internal Rotation 4+ Good+ Knee Strength Knee Manual Muscle Testing Right Flexion (S2) 5 Normal Extension (L3) 5 Normal Left Flexion (S2) 4+ Good+ Extension (L3) 4+ Good+ Ankle/Foot Strength Ankle and Foot Manual Muscle Testing Right Dorsiflexion (L4) 4+ Good+ Left Dorsiflexion (L4) 4+ Good+ PT-OP-Q Treatments Start: 05/02/18 13:13 Freq: Status: Active Protocol: Document 11/02/18 13:34 LRN (Rec: 11/02/18 14:00 LRN [id number]) Cardio Equipment Recumbent Stepper (Sci-Fit) Duration (Minutes) 10 Resistance 4.1 Seat Position 16 Other 2.02 dist PT-OP-R Modalities Start: 05/02/18 13:13 Freq: Status: Active Protocol: Document 08/07/18 12:00 RCC (Rec: 08/07/18 15:09 RCC [email or web address]) Hot Pack/Cold Pack Treatment Cold Pack Location bilateral hip/buttock Patient Position Hooklying Treatment Duration (minutes) 10 Patient Tolerance Good Comments strap for compression PT-OP-T Assessment and Plan Start: 05/02/18 13:13 Freq: Status: Active Protocol: Document 11/02/18 13:34 LRN (Rec: 11/02/18 14:00 LRN [id number]) Physical Therapy Assessment Assessment Summary Assessment Pt BP increased to 220/78 immediately after Sci Fit exercise. Pt did not want to continue therapy stating something is wrong, always something different. Normal BP cuff was used. Pt noted he has had a large BP cuff used before. Large cuff not available. Consistency with cuff used if not normal cuff, to take BP is recommended. Pt appeared agitated during subjective questioning. Physical Therapy Plan Frequency and Duration Frequency of Treatment 2x/Week Duration of Treatment 8 weeks Plan of Care Start Date 10/14/18 Plan of Care End Date 12/02/18 Next Visit Focus/Plan Next Note Type Treatment Note Next Visit Plan Monitor BP closely with exercise. Cuff size Lg recommended. Cont. to advance core stability, LE strengthening
--- NOTE | 2018-11-02 14:24 | PT.OTN ---
Current Diagnoses Myositis, unspecified (11/02/18) Physical Therapy Treatment Note PT-OP-A Visit Information Start: 05/02/18 13:13 Freq: Status: Active Protocol: Document 11/02/18 13:34 LRN (Rec: 11/02/18 14:00 LRN [id number]) Out-Patient Physical Therapy Visit Information Visit Information Visit Type Treatment Note Visit Start Time 13:35 Visit Stop Time 13:51 Total Visit Minutes 16 Visit Number 49 Number of PRODUCTION DISPATCHER Visits 0 Evaluation Information Evaluation Date 05/01/18 Precautions Precautions fall precautions on/off machines PT-OP-B Current Condition Start: 05/02/18 13:13 Freq: Status: Active Protocol: Document 05/01/18 12:45 RCC (Rec: 05/02/18 13:42 RCC [email or web address]) Current Condition History of Current Condition Onset Date 2015 Current Complaints SOB, weakness, unable to ambulate for exercise, pain all over body History of Current Condition Pt is a 73 y/o male presenting to physical therapy with a c/ o weakness, SOB with activity, pain throughout the body and inability to walk outdoors for exercise. 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 He states that initially his weakness and loss of function gradually started in 2015 after his from cancer. Pt admits he would sit for 6-8 hours a day, doing nothing. He has a complex medical history (see below). Pt admits that now he is embarrassed to see what little exercise he can do now but is extremely motivated to get better. He has found a female partner which he would like to be able to walk outdoors on trails with. 2 years ago, he was able to walk about 2.5 miles using walking sticks/poles. Treatment Goals Patient/Caregiver Goals walk outdoors on trails for exercise (walking on pavement increases his arthritic pain). Prior Functional Status Baseline Function- Mobility Modified Independent Baseline Function- Gait modified indep with increased time to travel community distances Baseline Function- Recreation/Hobbies trail walking 2.5 miles with walking sticks (2 yrs ago) Current Functional Impairments (Reported) Functional Limitations- Mobility/Gait fatigue/SOB and increased pain with community ambulation Functional Limitations- Recreation/ unable to perform Hobbies Personal Factors Other Personal Factors That May Effect cardiac history with 2 stents Therapy/Recovery placed, OA, L popliteal artery surgery/reconstruction, h/o prostate CA with radiation (45 sessions), HTN, B MIGUEL, depression since 2016 ( of spouse), multiple back and knee surgeries. PT-OP-C Subjective Start: 05/02/18 13:13 Freq: Status: Active Protocol: Document 11/02/18 13:34 LRN (Rec: 11/02/18 14:00 LRN [id number]) OP-PT Subjective Patient Comments Patient Comments Did not get out to walk this weekend, had too much to do at home. PT-OP-E Functional Tests Start: 05/02/18 13:13 Freq: Status: Active Protocol: Document 10/14/18 14:30 GGD (Rec: 10/14/18 14:32 GGD [email or web address]) Functional Tests 6 Minute Walk Test Distance 837 Comments increase in hip pain. PT-OP-F Manual Assessment Start: 08/21/18 11:30 Freq: Status: Active Protocol: Document 09/25/18 16:02 RCC (Rec: 09/25/18 17:07 RCC [email or web address]) Manual Assessments Soft Tissue Assessment Soft Tissue Mobility Assessment mild tension in R QL and slight in iliopsoas on the R. PT-OP-G Mobility & Gait Start: 05/02/18 13:13 Freq: Status: Active Protocol: Document 10/14/18 14:26 GGD (Rec: 10/14/18 14:30 GGD [email or web address]) Stair Climbing Evaluation Technique/Endurance Stair Climbing Direction Ascend and Descend Stair Climbing Technique Step Over Step Number of Steps Climbed 4 Stair Climbing Set # Repetitions (reps) 2 Comments Stair Climbing Comments used one rail. PT-OP-H Neuro Start: 10/02/18 13:36 Freq: Status: Active Protocol: Document 11/02/18 13:34 LRN (Rec: 11/02/18 14:00 LRN [id number]) Vital Signs Blood Pressure left arm Blood Pressure (90/60-120/80 mmHg) 220/78 H Blood Pressure Source Manual Cuff Left Upper Extremity Comments Vital Signs Comments Blood pressure at start of therapy was 160/88. Blood pressure after Sci fit 220/78. PT-OP-M Strength Start: 05/02/18 13:13 Freq: Status: Active Protocol: Document 08/19/18 13:45 RCC (Rec: 08/20/18 11:07 RCC [email or web address]) Hip Strength Hip Manual Muscle Testing Right Flexion (L2) 4 Good External Rotation 3+ Fair+ Internal Rotation 4+ Good+ Left Flexion (L2) 5 Normal External Rotation 3+ Fair+ Internal Rotation 4+ Good+ Knee Strength Knee Manual Muscle Testing Right Flexion (S2) 5 Normal Extension (L3) 5 Normal Left Flexion (S2) 4+ Good+ Extension (L3) 4+ Good+ Ankle/Foot Strength Ankle and Foot Manual Muscle Testing Right Dorsiflexion (L4) 4+ Good+ Left Dorsiflexion (L4) 4+ Good+ PT-OP-Q Treatments Start: 05/02/18 13:13 Freq: Status: Active Protocol: Document 11/02/18 13:34 LRN (Rec: 11/02/18 14:00 LRN [id number]) Cardio Equipment Recumbent Stepper (Sci-Fit) Duration (Minutes) 10 Resistance 4.1 Seat Position 16 Other 2.02 dist PT-OP-R Modalities Start: 05/02/18 13:13 Freq: Status: Active Protocol: Document 08/07/18 12:00 RCC (Rec: 08/07/18 15:09 RCC [email or web address]) Hot Pack/Cold Pack Treatment Cold Pack Location bilateral hip/buttock Patient Position Hooklying Treatment Duration (minutes) 10 Patient Tolerance Good Comments strap for compression PT-OP-T Assessment and Plan Start: 05/02/18 13:13 Freq: Status: Active Protocol: Document 11/02/18 13:34 LRN (Rec: 11/02/18 14:00 LRN [id number]) Physical Therapy Assessment Assessment Summary Assessment Pt BP increased to 220/78 immediately after Sci Fit exercise. Pt did not want to continue therapy stating something is wrong, always something different. Normal BP cuff was used. Pt noted he has had a large BP cuff used before. Large cuff not available. Recommend consistency with cuff used if not normal cuff, to take BP. Pt appeared agitated during subjective questioning. Physical Therapy Plan Frequency and Duration Frequency of Treatment 2x/Week Duration of Treatment 8 weeks Plan of Care Start Date 10/14/18 Plan of Care End Date 12/02/18 Next Visit Focus/Plan Next Note Type Treatment Note Next Visit Plan Monitor BP closely with exercise. Cuff size Lg recommended. Cont. to advance core stability, LE strengthening
--- NOTE | 2018-11-05 13:47 | PT.OTN ---
Current Diagnoses Myositis, unspecified (11/05/18) Physical Therapy Treatment Note PT-OP-A Visit Information Start: 05/02/18 13:13 Freq: Status: Active Protocol: Document 11/05/18 13:47 RCC (Rec: 11/06/18 09:05 RCC [email or web address]) Out-Patient Physical Therapy Visit Information Visit Information Visit Type Treatment Note Visit Start Time 13:47 Visit Stop Time 14:17 Total Visit Minutes 30 Visit Number 50 Number of LIFE SCIENTIST Visits 0 Evaluation Information Evaluation Date 05/01/18 Precautions Precautions fall precautions on/off machines PT-OP-B Current Condition Start: 05/02/18 13:13 Freq: Status: Active Protocol: Document 05/01/18 12:45 RCC (Rec: 05/02/18 13:42 RCC [email or web address]) Current Condition History of Current Condition Onset Date 2015 Current Complaints SOB, weakness, unable to ambulate for exercise, pain all over body History of Current Condition Pt is a 73 y/o male presenting to physical therapy with a c/ o weakness, SOB with activity, pain throughout the body and inability to walk outdoors for exercise. 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 He states that initially his weakness and loss of function gradually started in 2016 after his from cancer. Pt admits he would sit for 6-8 hours a day, doing nothing. He has a complex medical history (see below). Pt admits that now he is embarrassed to see what little exercise he can do now but is extremely motivated to get better. He has found a female partner which he would like to be able to walk outdoors on trails with. 2 years ago, he was able to walk about 2.5 miles using walking sticks/poles. Treatment Goals Patient/Caregiver Goals walk outdoors on trails for exercise (walking on pavement increases his arthritic pain). Prior Functional Status Baseline Function- Mobility Modified Independent Baseline Function- Gait modified indep with increased time to travel community distances Baseline Function- Recreation/Hobbies trail walking 2.5 miles with walking sticks (2 yrs ago) Current Functional Impairments (Reported) Functional Limitations- Mobility/Gait fatigue/SOB and increased pain with community ambulation Functional Limitations- Recreation/ unable to perform Hobbies Personal Factors Other Personal Factors That May Effect cardiac history with 2 stents Therapy/Recovery placed, OA, L popliteal artery surgery/reconstruction, h/o prostate CA with radiation (45 sessions), HTN, B MIGUEL, depression since 2016 ( of spouse), multiple back and knee surgeries. PT-OP-C Subjective Start: 05/02/18 13:13 Freq: Status: Active Protocol: Document 11/05/18 13:47 RCC (Rec: 11/06/18 09:05 RCC [email or web address]) OP-PT Subjective Patient Comments Patient Comments Pt reports that last session was tough. His BP was elevated and just got done at Dr. Mojica' office where he found out his weight gain the past 5 yrs has been substantial. PT-OP-E Functional Tests Start: 05/02/18 13:13 Freq: Status: Active Protocol: Document 10/14/18 14:30 GGD (Rec: 10/14/18 14:32 GGD [email or web address]) Functional Tests 6 Minute Walk Test Distance 837 Comments increase in hip pain. PT-OP-F Manual Assessment Start: 08/21/18 11:30 Freq: Status: Active Protocol: Document 09/25/18 16:02 RCC (Rec: 09/25/18 17:07 RCC [email or web address]) Manual Assessments Soft Tissue Assessment Soft Tissue Mobility Assessment mild tension in R QL and slight in iliopsoas on the R. PT-OP-G Mobility & Gait Start: 05/02/18 13:13 Freq: Status: Active Protocol: Document 10/14/18 14:26 GGD (Rec: 10/14/18 14:30 GGD [email or web address]) Stair Climbing Evaluation Technique/Endurance Stair Climbing Direction Ascend and Descend Stair Climbing Technique Step Over Step Number of Steps Climbed 4 Stair Climbing Set # Repetitions (reps) 2 Comments Stair Climbing Comments used one rail. PT-OP-H Neuro Start: 10/02/18 13:36 Freq: Status: Active Protocol: Document 11/02/18 13:34 LRN (Rec: 11/02/18 14:00 LRN [id number]) Vital Signs Blood Pressure left arm Blood Pressure (90/60-120/80 mmHg) 220/78 H Blood Pressure Source Manual Cuff Left Upper Extremity Comments Vital Signs Comments Blood pressure at start of therapy was 160/88. Blood pressure after Sci fit 220/78. PT-OP-M Strength Start: 05/02/18 13:13 Freq: Status: Active Protocol: Document 08/19/18 13:45 RCC (Rec: 08/20/18 11:07 [facility] [email or web address]) Hip Strength Hip Manual Muscle Testing Right Flexion (L2) 4 Good External Rotation 3+ Fair+ Internal Rotation 4+ Good+ Left Flexion (L2) 5 Normal External Rotation 3+ Fair+ Internal Rotation 4+ Good+ Knee Strength Knee Manual Muscle Testing Right Flexion (S2) 5 Normal Extension (L3) 5 Normal Left Flexion (S2) 4+ Good+ Extension (L3) 4+ Good+ Ankle/Foot Strength Ankle and Foot Manual Muscle Testing Right Dorsiflexion (L4) 4+ Good+ Left Dorsiflexion (L4) 4+ Good+ PT-OP-Q Treatments Start: 05/02/18 13:13 Freq: Status: Active Protocol: Document 11/05/18 13:47 [facility] (Rec: 11/06/18 09:05 [facility] [email or web address]) Therapeutic Activity Therapeutic Activity pt education, review POC and disease process Reps/Minutes 20 min Comments discussed with pt about plan going forward to assist with weight management, exercises in the clinic and at home, precautions about activities that may exacerbate his pain, and the fluxuation of how he is feeling daily due to BP and polymyositis. PT-OP-R Modalities Start: 05/02/18 13:13 Freq: Status: Active Protocol: Document 08/07/18 12:00 [facility] (Rec: 08/07/18 15:09 [facility] [email or web address]) Hot Pack/Cold Pack Treatment Cold Pack Location bilateral hip/buttock Patient Position Hooklying Treatment Duration (minutes) 10 Patient Tolerance Good Comments strap for compression PT-OP-T Assessment and Plan Start: 05/02/18 13:13 Freq: Status: Active Protocol: Document 11/05/18 13:47 [facility] (Rec: 11/06/18 09:05 [facility] [email or web address]) Physical Therapy Assessment Assessment Summary Assessment This session was dedicated to pt education only, no physical activity performed today as pt appeared to have increased stress with his last appointment and HTN. We discussed the plan going forward about increasing activity tolerance and a home program to be initiated with light walking with his significant other, no matter the time or distance initially going forward. He appears very motivated to lose weight and improve activity tolerance , and pleased with discussion and plan. Physical Therapy Plan Frequency and Duration Frequency of Treatment 2x/Week Duration of Treatment 8 weeks Plan of Care Start Date 10/14/18 Plan of Care End Date 12/02/18 Next Visit Focus/Plan Next Note Type Treatment Note Next Visit Plan monitor BP with XL cuff, also make sure pt has eaten before arrival (on a new fasting diet from 7 pm to 11 am).
--- NOTE | 2018-11-10 12:02 | PT.OTN ---
Current Diagnoses Myositis, unspecified (11/10/18) Physical Therapy Treatment Note PT-OP-A Visit Information Start: 05/02/18 13:13 Freq: Status: Active Protocol: Document 11/10/18 11:15 DCW (Rec: 11/10/18 12:01 DCW [id number]) Out-Patient Physical Therapy Visit Information Visit Information Visit Type Treatment Note Visit Start Time 11:15 Visit Stop Time 12:00 Total Visit Minutes 45 Visit Number 51 Number of STREETCAR STARTER Visits 0 Evaluation Information Evaluation Date 05/01/18 Precautions Precautions fall precautions on/off machines PT-OP-B Current Condition Start: 05/02/18 13:13 Freq: Status: Active Protocol: Document 05/01/18 12:45 RCC (Rec: 05/02/18 13:42 RCC [email or web address]) Current Condition History of Current Condition Onset Date 2015 Current Complaints SOB, weakness, unable to ambulate for exercise, pain all over body History of Current Condition Pt is a 73 y/o male presenting to physical therapy with a c/ o weakness, SOB with activity, pain throughout the body and inability to walk outdoors for exercise. 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 He states that initially his weakness and loss of function gradually started in 2015 after his from cancer. Pt admits he would sit for 6-8 hours a day, doing nothing. He has a complex medical history (see below). Pt admits that now he is embarrassed to see what little exercise he can do now but is extremely motivated to get better. He has found a female partner which he would like to be able to walk outdoors on trails with. 2 years ago, he was able to walk about 2.5 miles using walking sticks/poles. Treatment Goals Patient/Caregiver Goals walk outdoors on trails for exercise (walking on pavement increases his arthritic pain). Prior Functional Status Baseline Function- Mobility Modified Independent Baseline Function- Gait modified indep with increased time to travel community distances Baseline Function- Recreation/Hobbies trail walking 2.5 miles with walking sticks (2 yrs ago) Current Functional Impairments (Reported) Functional Limitations- Mobility/Gait fatigue/SOB and increased pain with community ambulation Functional Limitations- Recreation/ unable to perform Hobbies Personal Factors Other Personal Factors That May Effect cardiac history with 2 stents Therapy/Recovery placed, OA, L popliteal artery surgery/reconstruction, h/o prostate CA with radiation (45 sessions), HTN, B MIGUEL, depression since 2016 ( of spouse), multiple back and knee surgeries. PT-OP-C Subjective Start: 05/02/18 13:13 Freq: Status: Active Protocol: Document 11/10/18 11:15 DCW (Rec: 11/10/18 12:01 DCW [id number]) OP-PT Subjective Patient Comments Patient Comments Pt reports he has begun an intermittant fasting diet, which he hopes will help him lose at least 40 pounds. PT-OP-E Functional Tests Start: 05/02/18 13:13 Freq: Status: Active Protocol: Document 10/14/18 14:30 GGD (Rec: 10/14/18 14:32 GGD [email or web address]) Functional Tests 6 Minute Walk Test Distance 837 Comments increase in hip pain. PT-OP-F Manual Assessment Start: 08/21/18 11:30 Freq: Status: Active Protocol: Document 09/25/18 16:02 RCC (Rec: 09/25/18 17:07 RCC [email or web address]) Manual Assessments Soft Tissue Assessment Soft Tissue Mobility Assessment mild tension in R QL and slight in iliopsoas on the R. PT-OP-G Mobility & Gait Start: 05/02/18 13:13 Freq: Status: Active Protocol: Document 10/14/18 14:26 GGD (Rec: 10/14/18 14:30 GGD [email or web address]) Stair Climbing Evaluation Technique/Endurance Stair Climbing Direction Ascend and Descend Stair Climbing Technique Step Over Step Number of Steps Climbed 4 Stair Climbing Set # Repetitions (reps) 2 Comments Stair Climbing Comments used one rail. PT-OP-H Neuro Start: 10/02/18 13:36 Freq: Status: Active Protocol: Document 11/02/18 13:34 LRN (Rec: 11/02/18 14:00 LRN [id number]) Vital Signs Blood Pressure left arm Blood Pressure (90/60-120/80 mmHg) 220/78 H Blood Pressure Source Manual Cuff Left Upper Extremity Comments Vital Signs Comments Blood pressure at start of therapy was 160/88. Blood pressure after Sci fit 220/78. PT-OP-M Strength Start: 05/02/18 13:13 Freq: Status: Active Protocol: Document 08/19/18 13:45 RCC (Rec: 08/20/18 11:07 RCC [email or web address]) Hip Strength Hip Manual Muscle Testing Right Flexion (L2) 4 Good External Rotation 3+ Fair+ Internal Rotation 4+ Good+ Left Flexion (L2) 5 Normal External Rotation 3+ Fair+ Internal Rotation 4+ Good+ Knee Strength Knee Manual Muscle Testing Right Flexion (S2) 5 Normal Extension (L3) 5 Normal Left Flexion (S2) 4+ Good+ Extension (L3) 4+ Good+ Ankle/Foot Strength Ankle and Foot Manual Muscle Testing Right Dorsiflexion (L4) 4+ Good+ Left Dorsiflexion (L4) 4+ Good+ PT-OP-Q Treatments Start: 05/02/18 13:13 Freq: Status: Active Protocol: Document 11/10/18 11:15 DCW (Rec: 11/10/18 12:01 DCW [id number]) Cardio Equipment Recumbent Stepper (Sci-Fit) Duration (Minutes) 10 Resistance 4.0 Seat Position 16 Other 2.00 dist Therapeutic Exercises Standing Exercises heel cord stretch Standing Exercise Name heel cord stretch Side bilateral Equipment Used HOLLY Reps/Minutes 2x30 sec HS stretch Standing Exercise Name hamstring stretch Side bilateral Equipment Used stairs Reps/Minutes 2x30 sec resisted walking Standing Exercise Name lateral, fwd, bkwd Side bilateral Resistance Blue Equipment Used T-band Reps/Minutes 2 laps Other Exercises Hurdles Other Exercise Name step over hurdles in// bars Side bilateral Resistance 2 lb AW Equipment Used // bars Reps/Minutes x8 Comments fwd, side-stepping Manual Therapy Treatment Soft Tissue Mobilization gluteals and piriformis Mobilization Type Myofascial Release Rolling Intensity/Depth Moderate Body Position Sidelying Comments bilateral lumbar paraspinals and QL Mobilization Type Myofascial Release Rolling Intensity/Depth Moderate Body Position Sidelying PT-OP-R Modalities Start: 05/02/18 13:13 Freq: Status: Active Protocol: Document 08/07/18 12:00 RCC (Rec: 08/07/18 15:09 RCC [email or web address]) Hot Pack/Cold Pack Treatment Cold Pack Location bilateral hip/buttock Patient Position Hooklying Treatment Duration (minutes) 10 Patient Tolerance Good Comments strap for compression PT-OP-T Assessment and Plan Start: 05/02/18 13:13 Freq: Status: Active Protocol: Document 11/10/18 11:15 DCW (Rec: 11/10/18 12:01 DCW [id number]) Physical Therapy Assessment Goals Stair climbing Structural Iron Erector Goal (LTG) climb stair without holding railings x 4 steps x2 10/14/18 climbed stairs with one rail LTG Duration 8 weeks 6 minute walk test Impairment 6 MWT- 862 ft Short Term Goal (STG) >1,000 ft with 6 Minute Walk Test to improve exercise tolerance and decrease risk for falls. *not tested 08/19/18 d/t new onset pain 10/14/18 837 ft with increase in hip pain STG Duration 4 weeks Structural Iron Erector Goal (LTG) >1,200 ft with 6 Minute Walk Test to improve exercise tolerance and decrease risk for falls. LTG Duration 8 weeks trail walking Impairment inability to walk on trails due to pain and fatigue Short Term Goal (STG) pt will walk outdoors on trails with bilateral walking sticks for 15 min, 3 days per week. 10/14/18 walking indoors only *walking outdoors 2 days per week until this week d/t new onset pain 08/19/18 STG Duration 4 weeks Structural Iron Erector Goal (LTG) pt will walk outdoors on trails with bilateral walking sticks for 30 min, 5 days per week as part of an indep. home program for exercise and cardiovascular benefits. LTG Duration 8 weeks LE strength Impairment LE weakness Short Term Goal (STG) 4/5 or greater LE strength with MMT to improve functional mobility and tolerance to stairs in community. *good progress- hip ER still < 4/5 with MMT but improved 08/19 STG Duration 4 weeks Structural Iron Erector Goal (LTG) 4+/5 or greater LE strength with MMT to improve functional moblity and tolerance to stairs in community. LTG Duration 8 weeks Assessment Summary Assessment Pt BP remained between 142/84 - 162/90, which, while not optimal, is lower than some of his recent sessions. Physical Therapy Plan Frequency and Duration Frequency of Treatment 2x/Week Duration of Treatment 8 weeks Plan of Care Start Date 10/14/18 Plan of Care End Date 12/02/18 Next Visit Focus/Plan Next Note Type Treatment Note Next Visit Plan monitor BP with XL cuff, also make sure pt has eaten before arrival (on a new fasting diet from 7 pm to 11 am).
[2018-11-13 11:17] VITALS: BP 138/82
--- NOTE | 2018-11-13 11:17 | PT.OTN ---
Current Diagnoses Myositis, unspecified (11/13/18) Physical Therapy Treatment Note PT-OP-A Visit Information Start: 05/02/18 13:13 Freq: Status: Active Protocol: Document 11/13/18 11:17 [facility] (Rec: 11/13/18 12:09 [facility] [email or web address]) Out-Patient Physical Therapy Visit Information Visit Information Visit Type Treatment Note Visit Start Time 11:17 Visit Stop Time 12:00 Total Visit Minutes 43 Visit Number 52 Number of DRY CLEANER HELPER Visits 0 Evaluation Information Evaluation Date 05/01/18 Precautions Precautions fall precautions on/off machines PT-OP-B Current Condition Start: 05/02/18 13:13 Freq: Status: Active Protocol: Document 05/01/18 12:45 RCC (Rec: 05/02/18 13:42 [facility] [email or web address]) Current Condition History of Current Condition Onset Date 2015 Current Complaints SOB, weakness, unable to ambulate for exercise, pain all over body History of Current Condition Pt is a 73 y/o male presenting to physical therapy with a c/ o weakness, SOB with activity, pain throughout the body and inability to walk outdoors for exercise. 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 He states that initially his weakness and loss of function gradually started in 2016 after his from cancer. Pt admits he would sit for 6-8 hours a day, doing nothing. He has a complex medical history (see below). Pt admits that now he is embarrassed to see what little exercise he can do now but is extremely motivated to get better. He has found a female partner which he would like to be able to walk outdoors on trails with. 2 years ago, he was able to walk about 2.5 miles using walking sticks/poles. Treatment Goals Patient/Caregiver Goals walk outdoors on trails for exercise (walking on pavement increases his arthritic pain). Prior Functional Status Baseline Function- Mobility Modified Independent Baseline Function- Gait modified indep with increased time to travel community distances Baseline Function- Recreation/Hobbies trail walking 2.5 miles with walking sticks (2 yrs ago) Current Functional Impairments (Reported) Functional Limitations- Mobility/Gait fatigue/SOB and increased pain with community ambulation Functional Limitations- Recreation/ unable to perform Hobbies Personal Factors Other Personal Factors That May Effect cardiac history with 2 stents Therapy/Recovery placed, OA, L popliteal artery surgery/reconstruction, h/o prostate CA with radiation (45 sessions), HTN, B MIGUEL, depression since 2016 ( of spouse), multiple back and knee surgeries. PT-OP-C Subjective Start: 05/02/18 13:13 Freq: Status: Active Protocol: Document 11/13/18 11:17 RCC (Rec: 11/13/18 12:09 [facility] [email or web address]) OP-PT Subjective Patient Comments Patient Comments Pt compliant with his diet and notes that he did eat before this session. He states he has had a better 4 days than he could remember in regards to less pain with standing activities at home. PT-OP-E Functional Tests Start: 05/02/18 13:13 Freq: Status: Active Protocol: Document 10/14/18 14:30 GGD (Rec: 10/14/18 14:32 GGD [email or web address]) Functional Tests 6 Minute Walk Test Distance 837 Comments increase in hip pain. PT-OP-F Manual Assessment Start: 08/21/18 11:30 Freq: Status: Active Protocol: Document 09/25/18 16:02 RCC (Rec: 09/25/18 17:07 RCC [email or web address]) Manual Assessments Soft Tissue Assessment Soft Tissue Mobility Assessment mild tension in R QL and slight in iliopsoas on the R. PT-OP-G Mobility & Gait Start: 05/02/18 13:13 Freq: Status: Active Protocol: Document 10/14/18 14:26 GGD (Rec: 10/14/18 14:30 GGD [email or web address]) Stair Climbing Evaluation Technique/Endurance Stair Climbing Direction Ascend and Descend Stair Climbing Technique Step Over Step Number of Steps Climbed 4 Stair Climbing Set # Repetitions (reps) 2 Comments Stair Climbing Comments used one rail. PT-OP-H Neuro Start: 10/02/18 13:36 Freq: Status: Active Protocol: Document 11/13/18 11:17 RCC (Rec: 11/13/18 12:09 RCC [email or web address]) Vital Signs Blood Pressure right arm Blood Pressure (90/60-120/80 mmHg) 138/82 H Blood Pressure Source Manual Cuff Right Upper Extremity PT-OP-M Strength Start: 05/02/18 13:13 Freq: Status: Active Protocol: Document 08/19/18 13:45 RCC (Rec: 08/20/18 11:07 RCC [email or web address]) Hip Strength Hip Manual Muscle Testing Right Flexion (L2) 4 Good External Rotation 3+ Fair+ Internal Rotation 4+ Good+ Left Flexion (L2) 5 Normal External Rotation 3+ Fair+ Internal Rotation 4+ Good+ Knee Strength Knee Manual Muscle Testing Right Flexion (S2) 5 Normal Extension (L3) 5 Normal Left Flexion (S2) 4+ Good+ Extension (L3) 4+ Good+ Ankle/Foot Strength Ankle and Foot Manual Muscle Testing Right Dorsiflexion (L4) 4+ Good+ Left Dorsiflexion (L4) 4+ Good+ PT-OP-Q Treatments Start: 05/02/18 13:13 Freq: Status: Active Protocol: Document 11/13/18 11:17 RCC (Rec: 11/13/18 12:09 [facility] [email or web address]) Cardio Equipment Recumbent Stepper (Sci-Fit) Duration (Minutes) 10 Resistance 4.0 Seat Position 16 Other 2.00 dist Gym Equipment Cable Column (Body Solid) Rows Details standing B and alternating rows with PPT Resistance 10 lbs Reps/Time x20 ea Leg Curl Resistance 40# Reps/Time 2x15 Leg Extension Resistance 40# Reps/Time 2x15 Shuttle Recovery Unilateral Squats Resistance 62 Shuttle Recovery Platform Stable Reps/Time 2x10 ea Bilateral Squats Resistance 87 Shuttle Recovery Platform Stable Reps/Time 2x10 Therapeutic Exercises Standing Exercises wall push up Side bilateral Reps/Minutes 2x10 HS stretch Standing Exercise Name hamstring stretch Side bilateral Equipment Used stairs Reps/Minutes 2x30 sec PT-OP-R Modalities Start: 05/02/18 13:13 Freq: Status: Active Protocol: Document 08/07/18 12:00 RCC (Rec: 08/07/18 15:09 [facility] [email or web address]) Hot Pack/Cold Pack Treatment Cold Pack Location bilateral hip/buttock Patient Position Hooklying Treatment Duration (minutes) 10 Patient Tolerance Good Comments strap for compression PT-OP-T Assessment and Plan Start: 05/02/18 13:13 Freq: Status: Active Protocol: Document 11/13/18 11:17 RCC (Rec: 11/13/18 12:09 [facility] [email or web address]) Physical Therapy Assessment Assessment Summary Assessment Pt with less c/o low back pain with PPT in standing activities. He fatigues quickly but appears to be highly motivated to improve. Physical Therapy Plan Frequency and Duration Frequency of Treatment 2x/Week Duration of Treatment 8 weeks Plan of Care Start Date 10/14/18 Plan of Care End Date 12/02/18 Next Visit Focus/Plan Next Note Type Treatment Note Next Visit Plan XL cuff to check BP; advance core stability, standing exercises with PPT
--- NOTE | 2018-11-18 12:02 | PT.OTN ---
Current Diagnoses Myositis, unspecified (11/18/18) Physical Therapy Treatment Note PT-OP-A Visit Information Start: 05/02/18 13:13 Freq: Status: Active Protocol: Document 11/18/18 12:02 RCC (Rec: 11/18/18 13:12 RCC [email or web address]) Out-Patient Physical Therapy Visit Information Visit Information Visit Type Treatment Note Visit Start Time 12:02 Visit Stop Time 12:47 Total Visit Minutes 45 Visit Number 53 Number of ESTIMATOR JEWELRY Visits 0 Evaluation Information Evaluation Date 05/01/18 Precautions Precautions fall precautions on/off machines PT-OP-B Current Condition Start: 05/02/18 13:13 Freq: Status: Active Protocol: Document 05/01/18 12:45 RCC (Rec: 05/02/18 13:42 RCC [email or web address]) Current Condition History of Current Condition Onset Date 2015 Current Complaints SOB, weakness, unable to ambulate for exercise, pain all over body History of Current Condition Pt is a 73 y/o male presenting to physical therapy with a c/ o weakness, SOB with activity, pain throughout the body and inability to walk outdoors for exercise. 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 He states that initially his weakness and loss of function gradually started in 2016 after his from cancer. Pt admits he would sit for 6-8 hours a day, doing nothing. He has a complex medical history (see below). Pt admits that now he is embarrassed to see what little exercise he can do now but is extremely motivated to get better. He has found a female partner which he would like to be able to walk outdoors on trails with. 2 years ago, he was able to walk about 2.5 miles using walking sticks/poles. Treatment Goals Patient/Caregiver Goals walk outdoors on trails for exercise (walking on pavement increases his arthritic pain). Prior Functional Status Baseline Function- Mobility Modified Independent Baseline Function- Gait modified indep with increased time to travel community distances Baseline Function- Recreation/Hobbies trail walking 2.5 miles with walking sticks (2 yrs ago) Current Functional Impairments (Reported) Functional Limitations- Mobility/Gait fatigue/SOB and increased pain with community ambulation Functional Limitations- Recreation/ unable to perform Hobbies Personal Factors Other Personal Factors That May Effect cardiac history with 2 stents Therapy/Recovery placed, OA, L popliteal artery surgery/reconstruction, h/o prostate CA with radiation (45 sessions), HTN, B MIGUEL, depression since 2016 ( of spouse), multiple back and knee surgeries. PT-OP-C Subjective Start: 05/02/18 13:13 Freq: Status: Active Protocol: Document 11/18/18 12:02 RCC (Rec: 11/18/18 13:12 RCC [email or web address]) OP-PT Subjective Patient Comments Patient Comments Pt notes that he had to replace his toilet this past weekend and that was too much . PT-OP-E Functional Tests Start: 05/02/18 13:13 Freq: Status: Active Protocol: Document 10/14/18 14:30 GGD (Rec: 10/14/18 14:32 GGD [email or web address]) Functional Tests 6 Minute Walk Test Distance 837 Comments increase in hip pain. PT-OP-F Manual Assessment Start: 08/21/18 11:30 Freq: Status: Active Protocol: Document 09/25/18 16:02 RCC (Rec: 09/25/18 17:07 RCC [email or web address]) Manual Assessments Soft Tissue Assessment Soft Tissue Mobility Assessment mild tension in R QL and slight in iliopsoas on the R. PT-OP-G Mobility & Gait Start: 05/02/18 13:13 Freq: Status: Active Protocol: Document 10/14/18 14:26 GGD (Rec: 10/14/18 14:30 GGD [email or web address]) Stair Climbing Evaluation Technique/Endurance Stair Climbing Direction Ascend and Descend Stair Climbing Technique Step Over Step Number of Steps Climbed 4 Stair Climbing Set # Repetitions (reps) 2 Comments Stair Climbing Comments used one rail. PT-OP-H Neuro Start: 10/02/18 13:36 Freq: Status: Active Protocol: Document 11/13/18 11:17 RCC (Rec: 11/13/18 12:09 RCC [email or web address]) Vital Signs Blood Pressure right arm Blood Pressure (90/60-120/80 mmHg) 138/82 H Blood Pressure Source Manual Cuff Right Upper Extremity PT-OP-M Strength Start: 05/02/18 13:13 Freq: Status: Active Protocol: Document 08/19/18 13:45 RCC (Rec: 08/20/18 11:07 RCC [email or web address]) Hip Strength Hip Manual Muscle Testing Right Flexion (L2) 4 Good External Rotation 3+ Fair+ Internal Rotation 4+ Good+ Left Flexion (L2) 5 Normal External Rotation 3+ Fair+ Internal Rotation 4+ Good+ Knee Strength Knee Manual Muscle Testing Right Flexion (S2) 5 Normal Extension (L3) 5 Normal Left Flexion (S2) 4+ Good+ Extension (L3) 4+ Good+ Ankle/Foot Strength Ankle and Foot Manual Muscle Testing Right Dorsiflexion (L4) 4+ Good+ Left Dorsiflexion (L4) 4+ Good+ PT-OP-Q Treatments Start: 05/02/18 13:13 Freq: Status: Active Protocol: Document 11/18/18 12:02 RCC (Rec: 11/18/18 13:12 [facility] [email or web address]) Cardio Equipment Recumbent Stepper (Sci-Fit) Duration (Minutes) 10 Resistance 4.0 Seat Position 16 Other 1.67 dist Manual Therapy Treatment Soft Tissue Mobilization lumbar scar tissue Mobilization Type Myofascial Release Rolling Intensity/Depth Moderate Body Position Sidelying gluteals and piriformis Mobilization Type Myofascial Release Rolling Intensity/Depth Moderate Body Position Sidelying Comments bilateral lumbar paraspinals and QL Mobilization Type Myofascial Release Rolling Intensity/Depth Moderate Body Position Sidelying PT-OP-R Modalities Start: 05/02/18 13:13 Freq: Status: Active Protocol: Document 08/07/18 12:00 [facility] (Rec: 08/07/18 15:09 [facility] [email or web address]) Hot Pack/Cold Pack Treatment Cold Pack Location bilateral hip/buttock Patient Position Hooklying Treatment Duration (minutes) 10 Patient Tolerance Good Comments strap for compression PT-OP-T Assessment and Plan Start: 05/02/18 13:13 Freq: Status: Active Protocol: Document 11/18/18 12:02 [facility] (Rec: 11/18/18 13:12 [facility] [email or web address]) Physical Therapy Assessment Assessment Summary Assessment Pt with L>R tension in lumbar paraspinals and QL, increased bilterally since last time performing manual assessment. Pt's BP 140/82 prior to manual therapy. Physical Therapy Plan Frequency and Duration Frequency of Treatment 2x/Week Duration of Treatment 8 weeks Plan of Care Start Date 10/14/18 Plan of Care End Date 12/02/18 Next Visit Focus/Plan Next Note Type Treatment Note Next Visit Plan XL cuff to check BP; advance core stability, standing exercises with PPT
--- NOTE | 2018-11-20 12:01 | PT.OTN ---
Current Diagnoses Myositis, unspecified (11/20/18) Physical Therapy Treatment Note PT-OP-A Visit Information Start: 05/02/18 13:13 Freq: Status: Active Protocol: Document 11/20/18 12:01 RCC (Rec: 11/20/18 13:10 RCC [email or web address]) Out-Patient Physical Therapy Visit Information Visit Information Visit Type Treatment Note Visit Start Time 12:01 Visit Stop Time 12:45 Total Visit Minutes 44 Visit Number 54 Number of FIELD MACHINIST Visits 0 Evaluation Information Evaluation Date 05/01/18 Precautions Precautions fall precautions on/off machines PT-OP-B Current Condition Start: 05/02/18 13:13 Freq: Status: Active Protocol: Document 05/01/18 12:45 RCC (Rec: 05/02/18 13:42 RCC [email or web address]) Current Condition History of Current Condition Onset Date 2015 Current Complaints SOB, weakness, unable to ambulate for exercise, pain all over body History of Current Condition Pt is a 73 y/o male presenting to physical therapy with a c/ o weakness, SOB with activity, pain throughout the body and inability to walk outdoors for exercise. 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 He states that initially his weakness and loss of function gradually started in 2016 after his from cancer. Pt admits he would sit for 6-8 hours a day, doing nothing. He has a complex medical history (see below). Pt admits that now he is embarrassed to see what little exercise he can do now but is extremely motivated to get better. He has found a female partner which he would like to be able to walk outdoors on trails with. 2 years ago, he was able to walk about 2.5 miles using walking sticks/poles. Treatment Goals Patient/Caregiver Goals walk outdoors on trails for exercise (walking on pavement increases his arthritic pain). Prior Functional Status Baseline Function- Mobility Modified Independent Baseline Function- Gait modified indep with increased time to travel community distances Baseline Function- Recreation/Hobbies trail walking 2.5 miles with walking sticks (2 yrs ago) Current Functional Impairments (Reported) Functional Limitations- Mobility/Gait fatigue/SOB and increased pain with community ambulation Functional Limitations- Recreation/ unable to perform Hobbies Personal Factors Other Personal Factors That May Effect cardiac history with 2 stents Therapy/Recovery placed, OA, L popliteal artery surgery/reconstruction, h/o prostate CA with radiation (45 sessions), HTN, B MIGUEL, depression since 2016 ( of spouse), multiple back and knee surgeries. 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 PT-OP-E Functional Tests Start: 05/02/18 13:13 Freq: Status: Active Protocol: Document 10/14/18 14:30 GGD (Rec: 10/14/18 14:32 GGD [email or web address]) Functional Tests 6 Minute Walk Test Distance 837 Comments increase in hip pain. PT-OP-F Manual Assessment Start: 08/21/18 11:30 Freq: Status: Active Protocol: Document 09/25/18 16:02 RCC (Rec: 09/25/18 17:07 RCC [email or web address]) Manual Assessments Soft Tissue Assessment Soft Tissue Mobility Assessment mild tension in R QL and slight in iliopsoas on the R. PT-OP-G Mobility & Gait Start: 05/02/18 13:13 Freq: Status: Active Protocol: Document 10/14/18 14:26 GGD (Rec: 10/14/18 14:30 GGD [email or web address]) Stair Climbing Evaluation Technique/Endurance Stair Climbing Direction Ascend and Descend Stair Climbing Technique Step Over Step Number of Steps Climbed 4 Stair Climbing Set # Repetitions (reps) 2 Comments Stair Climbing Comments used one rail. PT-OP-H Neuro Start: 10/02/18 13:36 Freq: Status: Active Protocol: Document 11/13/18 11:17 RCC (Rec: 11/13/18 12:09 RCC [email or web address]) Vital Signs Blood Pressure right arm Blood Pressure (90/60-120/80 mmHg) 138/82 H Blood Pressure Source Manual Cuff Right Upper Extremity PT-OP-M Strength Start: 05/02/18 13:13 Freq: Status: Active Protocol: Document 08/19/18 13:45 RCC (Rec: 08/20/18 11:07 RCC [email or web address]) Hip Strength Hip Manual Muscle Testing Right Flexion (L2) 4 Good External Rotation 3+ Fair+ Internal Rotation 4+ Good+ Left Flexion (L2) 5 Normal External Rotation 3+ Fair+ Internal Rotation 4+ Good+ Knee Strength Knee Manual Muscle Testing Right Flexion (S2) 5 Normal Extension (L3) 5 Normal Left Flexion (S2) 4+ Good+ Extension (L3) 4+ Good+ Ankle/Foot Strength Ankle and Foot Manual Muscle Testing Right Dorsiflexion (L4) 4+ Good+ Left Dorsiflexion (L4) 4+ Good+ PT-OP-Q Treatments Start: 05/02/18 13:13 Freq: Status: Active Protocol: Document 11/20/18 12:01 [facility] (Rec: 11/20/18 13:10 [facility] [email or web address]) Cardio Equipment Recumbent Stepper (Sci-Fit) Duration (Minutes) 10 Resistance 4.0 Seat Position 16 Other 1.64 dist Therapeutic Activity Therapeutic Activity pt education on HEP Reps/Minutes discussed HEP for progression in moderation to get back to walking outdoors Manual Therapy Treatment Soft Tissue Mobilization lumbar scar tissue Mobilization Type Myofascial Release Rolling Intensity/Depth Moderate Body Position Sidelying lumbar paraspinals and QL Mobilization Type Myofascial Release Rolling Intensity/Depth Moderate Body Position Sidelying PT-OP-T Assessment and Plan Start: 05/02/18 13:13 Freq: Status: Active Protocol: Document 11/20/18 12:01 [facility] (Rec: 11/20/18 13:10 [facility] [email or web address]) Physical Therapy Assessment Assessment Summary Assessment Pt with R > L tension in the QL, likely due to the replacement of the toilet he attempted at home last week. Overall, pt too painful in low back to tolerate resistance training today. Physical Therapy Plan Frequency and Duration Frequency of Treatment 2x/Week Duration of Treatment 8 weeks Plan of Care Start Date 10/14/18 Plan of Care End Date 12/02/18 Next Visit Focus/Plan Next Note Type Treatment Note Next Visit Plan return to light resistance training if able; HS stretching
--- NOTE | 2018-11-24 15:36 | PT.OTN ---
Current Diagnoses Myositis, unspecified (11/24/18) Physical Therapy Treatment Note PT-OP-A Visit Information Start: 05/02/18 13:13 Freq: Status: Active Protocol: Document 11/24/18 12:00 GGD (Rec: 11/24/18 15:36 GGD [email or web address]) Out-Patient Physical Therapy Visit Information Visit Information Visit Type Treatment Note Visit Start Time 12:00 Visit Stop Time 12:44 Total Visit Minutes 44 Visit Number 55 Number of LIME KILN WORKER Visits 1 Evaluation Information Evaluation Date 05/01/18 PT-OP-B Current Condition Start: 05/02/18 13:13 Freq: Status: Active Protocol: Document 05/01/18 12:45 RCC (Rec: 05/02/18 13:42 RCC [email or web address]) Current Condition History of Current Condition Onset Date 2015 Current Complaints SOB, weakness, unable to ambulate for exercise, pain all over body History of Current Condition Pt is a 73 y/o male presenting to physical therapy with a c/ o weakness, SOB with activity, pain throughout the body and inability to walk outdoors for exercise. 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 He states that initially his weakness and loss of function gradually started in 2015 after his from cancer. Pt admits he would sit for 6-8 hours a day, doing nothing. He has a complex medical history (see below). Pt admits that now he is embarrassed to see what little exercise he can do now but is extremely motivated to get better. He has found a female partner which he would like to be able to walk outdoors on trails with. 2 years ago, he was able to walk about 2.5 miles using walking sticks/poles. Treatment Goals Patient/Caregiver Goals walk outdoors on trails for exercise (walking on pavement increases his arthritic pain). Prior Functional Status Baseline Function- Mobility Modified Independent Baseline Function- Gait modified indep with increased time to travel community distances Baseline Function- Recreation/Hobbies trail walking 2.5 miles with walking sticks (2 yrs ago) Current Functional Impairments (Reported) Functional Limitations- Mobility/Gait fatigue/SOB and increased pain with community ambulation Functional Limitations- Recreation/ unable to perform Hobbies Personal Factors Other Personal Factors That May Effect cardiac history with 2 stents Therapy/Recovery placed, OA, L popliteal artery surgery/reconstruction, h/o prostate CA with radiation (45 sessions), HTN, B MIGUEL, depression since 2016 ( of spouse), multiple back and knee surgeries. PT-OP-C Subjective Start: 05/02/18 13:13 Freq: Status: Active Protocol: Document 11/24/18 12:00 GGD (Rec: 11/24/18 15:36 GGD [email or web address]) OP-PT Subjective Patient Comments Patient Comments Pt states he is slowly feeling better after replacing his toilet. PT-OP-E Functional Tests Start: 05/02/18 13:13 Freq: Status: Active Protocol: Document 10/14/18 14:30 GGD (Rec: 10/14/18 14:32 GGD [email or web address]) Functional Tests 6 Minute Walk Test Distance 837 Comments increase in hip pain. PT-OP-F Manual Assessment Start: 08/21/18 11:30 Freq: Status: Active Protocol: Document 09/25/18 16:02 RCC (Rec: 09/25/18 17:07 RCC [email or web address]) Manual Assessments Soft Tissue Assessment Soft Tissue Mobility Assessment mild tension in R QL and slight in iliopsoas on the R. PT-OP-G Mobility & Gait Start: 05/02/18 13:13 Freq: Status: Active Protocol: Document 10/14/18 14:26 GGD (Rec: 10/14/18 14:30 GGD [email or web address]) Stair Climbing Evaluation Technique/Endurance Stair Climbing Direction Ascend and Descend Stair Climbing Technique Step Over Step Number of Steps Climbed 4 Stair Climbing Set # Repetitions (reps) 2 Comments Stair Climbing Comments used one rail. PT-OP-H Neuro Start: 10/02/18 13:36 Freq: Status: Active Protocol: Document 11/13/18 11:17 RCC (Rec: 11/13/18 12:09 RCC [email or web address]) Vital Signs Blood Pressure right arm Blood Pressure (90/60-120/80 mmHg) 138/82 H Blood Pressure Source Manual Cuff Right Upper Extremity PT-OP-M Strength Start: 05/02/18 13:13 Freq: Status: Active Protocol: Document 08/19/18 13:45 RCC (Rec: 08/20/18 11:07 RCC [email or web address]) Hip Strength Hip Manual Muscle Testing Right Flexion (L2) 4 Good External Rotation 3+ Fair+ Internal Rotation 4+ Good+ Left Flexion (L2) 5 Normal External Rotation 3+ Fair+ Internal Rotation 4+ Good+ Knee Strength Knee Manual Muscle Testing Right Flexion (S2) 5 Normal Extension (L3) 5 Normal Left Flexion (S2) 4+ Good+ Extension (L3) 4+ Good+ Ankle/Foot Strength Ankle and Foot Manual Muscle Testing Right Dorsiflexion (L4) 4+ Good+ Left Dorsiflexion (L4) 4+ Good+ PT-OP-Q Treatments Start: 05/02/18 13:13 Freq: Status: Active Protocol: Document 11/24/18 12:00 GGD (Rec: 11/24/18 15:36 GGD [email or web address]) Cardio Equipment Recumbent Stepper (Sci-Fit) Duration (Minutes) 10 Resistance 4.0 Seat Position 16 Other 1.64 dist Gym Equipment Shuttle Recovery Unilateral Squats Resistance 62 Shuttle Recovery Platform Stable Reps/Time 2x10 ea Bilateral Squats Resistance 87 Shuttle Recovery Platform Stable Reps/Time 2x10 Therapeutic Exercises Standing Exercises heel cord stretch Standing Exercise Name heel cord stretch Side bilateral Equipment Used HOLLY Reps/Minutes 2x30 sec HS stretch Standing Exercise Name hamstring stretch Side bilateral Equipment Used stairs Reps/Minutes 2x30 sec Manual Therapy Treatment Soft Tissue Mobilization lumbar scar tissue Mobilization Type Myofascial Release Rolling Intensity/Depth Moderate Body Position Sidelying lumbar paraspinals and QL Mobilization Type Myofascial Release Rolling Intensity/Depth Moderate Body Position Sidelying PT-OP-R Modalities Start: 05/02/18 13:13 Freq: Status: Active Protocol: Document 08/07/18 12:00 RCC (Rec: 08/07/18 15:09 RCC [email or web address]) Hot Pack/Cold Pack Treatment Cold Pack Location bilateral hip/buttock Patient Position Hooklying Treatment Duration (minutes) 10 Patient Tolerance Good Comments strap for compression PT-OP-T Assessment and Plan Start: 05/02/18 13:13 Freq: Status: Active Protocol: Document 11/24/18 12:00 GGD (Rec: 11/24/18 15:36 GGD [email or web address]) Physical Therapy Assessment Goals Stair climbing [facility] Goal (LTG) climb stair without holding railings x 4 steps x2 10/14/18 climbed stairs with one rail LTG Duration 8 weeks 6 minute walk test Impairment 6 MWT- 862 ft Short Term Goal (STG) >1,000 ft with 6 Minute Walk Test to improve exercise tolerance and decrease risk for falls. *not tested 08/19/18 d/t new onset pain 10/14/18 837 ft with increase in hip pain STG Duration 4 weeks Industrial Services Worker Goal (LTG) >1,200 ft with 6 Minute Walk Test to improve exercise tolerance and decrease risk for falls. LTG Duration 8 weeks trail walking Impairment inability to walk on trails due to pain and fatigue Short Term Goal (STG) pt will walk outdoors on trails with bilateral walking sticks for 15 min, 3 days per week. 10/14/18 walking indoors only *walking outdoors 2 days per week until this week d/t new onset pain 08/19/18 STG Duration 4 weeks Industrial Services Worker Goal (LTG) pt will walk outdoors on trails with bilateral walking sticks for 30 min, 5 days per week as part of an indep. home program for exercise and cardiovascular benefits. LTG Duration 8 weeks LE strength Impairment LE weakness Short Term Goal (STG) 4/5 or greater LE strength with MMT to improve functional mobility and tolerance to stairs in community. *good progress- hip ER still < 4/5 with MMT but improved 08/19 STG Duration 4 weeks Industrial Services Worker Goal (LTG) 4+/5 or greater LE strength with MMT to improve functional moblity and tolerance to stairs in community. LTG Duration 8 weeks Assessment Summary Assessment Pt able to return to light exercise. With no increase in pain. Physical Therapy Plan Frequency and Duration Frequency of Treatment 2x/Week Duration of Treatment 8 weeks Plan of Care Start Date 10/14/18 Plan of Care End Date 12/02/18 Next Visit Focus/Plan Next Note Type Treatment Note Next Visit Plan progress light resistance training as tolerate; HS stretching
[2018-11-27 12:05] VITALS: BP 138/82
--- NOTE | 2018-11-27 12:05 | PT.OTN ---
Current Diagnoses Myositis, unspecified (11/27/18) Physical Therapy Treatment Note PT-OP-A Visit Information Start: 05/02/18 13:13 Freq: Status: Active Protocol: Document 11/27/18 12:05 RCC (Rec: 11/28/18 15:35 RCC [email or web address]) Out-Patient Physical Therapy Visit Information Visit Information Visit Type Treatment Note Visit Start Time 12:05 Visit Stop Time 12:45 Total Visit Minutes 40 Visit Number 56 Number of YARN SALVAGER Visits 0 Evaluation Information Evaluation Date 05/01/18 Precautions Precautions fall precautions on/off machines PT-OP-B Current Condition Start: 05/02/18 13:13 Freq: Status: Active Protocol: Document 05/01/18 12:45 RCC (Rec: 05/02/18 13:42 RCC [email or web address]) Current Condition History of Current Condition Onset Date 2015 Current Complaints SOB, weakness, unable to ambulate for exercise, pain all over body History of Current Condition Pt is a 73 y/o male presenting to physical therapy with a c/ o weakness, SOB with activity, pain throughout the body and inability to walk outdoors for exercise. 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 He states that initially his weakness and loss of function gradually started in 2016 after his from cancer. Pt admits he would sit for 6-8 hours a day, doing nothing. He has a complex medical history (see below). Pt admits that now he is embarrassed to see what little exercise he can do now but is extremely motivated to get better. He has found a female partner which he would like to be able to walk outdoors on trails with. 2 years ago, he was able to walk about 2.5 miles using walking sticks/poles. Treatment Goals Patient/Caregiver Goals walk outdoors on trails for exercise (walking on pavement increases his arthritic pain). Prior Functional Status Baseline Function- Mobility Modified Independent Baseline Function- Gait modified indep with increased time to travel community distances Baseline Function- Recreation/Hobbies trail walking 2.5 miles with walking sticks (2 yrs ago) Current Functional Impairments (Reported) Functional Limitations- Mobility/Gait fatigue/SOB and increased pain with community ambulation Functional Limitations- Recreation/ unable to perform Hobbies Personal Factors Other Personal Factors That May Effect cardiac history with 2 stents Therapy/Recovery placed, OA, L popliteal artery surgery/reconstruction, h/o prostate CA with radiation (45 sessions), HTN, B MIGUEL, depression since 2016 ( of spouse), multiple back and knee surgeries. PT-OP-C Subjective Start: 05/02/18 13:13 Freq: Status: Active Protocol: Document 11/27/18 12:05 RCC (Rec: 11/28/18 15:35 RCC [email or web address]) OP-PT Subjective Patient Comments Patient Comments Pt is feeling better today, states that he has been sleeping with less interruptions with pain. PT-OP-E Functional Tests Start: 05/02/18 13:13 Freq: Status: Active Protocol: Document 10/14/18 14:30 GGD (Rec: 10/14/18 14:32 GGD [email or web address]) Functional Tests 6 Minute Walk Test Distance 837 Comments increase in hip pain. PT-OP-F Manual Assessment Start: 08/21/18 11:30 Freq: Status: Active Protocol: Document 09/25/18 16:02 RCC (Rec: 09/25/18 17:07 RCC [email or web address]) Manual Assessments Soft Tissue Assessment Soft Tissue Mobility Assessment mild tension in R QL and slight in iliopsoas on the R. PT-OP-G Mobility & Gait Start: 05/02/18 13:13 Freq: Status: Active Protocol: Document 10/14/18 14:26 GGD (Rec: 10/14/18 14:30 GGD [email or web address]) Stair Climbing Evaluation Technique/Endurance Stair Climbing Direction Ascend and Descend Stair Climbing Technique Step Over Step Number of Steps Climbed 4 Stair Climbing Set # Repetitions (reps) 2 Comments Stair Climbing Comments used one rail. PT-OP-H Neuro Start: 10/02/18 13:36 Freq: Status: Active Protocol: Document 11/27/18 12:05 RCC (Rec: 11/28/18 15:38 RCC [email or web address]) Vital Signs Blood Pressure left arm Blood Pressure (90/60-120/80 mmHg) 138/82 H Blood Pressure Source Manual Cuff PT-OP-M Strength Start: 05/02/18 13:13 Freq: Status: Active Protocol: Document 08/19/18 13:45 RCC (Rec: 08/20/18 11:07 RCC [email or web address]) Hip Strength Hip Manual Muscle Testing Right Flexion (L2) 4 Good External Rotation 3+ Fair+ Internal Rotation 4+ Good+ Left Flexion (L2) 5 Normal External Rotation 3+ Fair+ Internal Rotation 4+ Good+ Knee Strength Knee Manual Muscle Testing Right Flexion (S2) 5 Normal Extension (L3) 5 Normal Left Flexion (S2) 4+ Good+ Extension (L3) 4+ Good+ Ankle/Foot Strength Ankle and Foot Manual Muscle Testing Right Dorsiflexion (L4) 4+ Good+ Left Dorsiflexion (L4) 4+ Good+ PT-OP-Q Treatments Start: 05/02/18 13:13 Freq: Status: Active Protocol: Document 11/27/18 12:05 RCC (Rec: 11/28/18 15:38 RCC [email or web address]) Cardio Equipment Recumbent Stepper (Sci-Fit) Duration (Minutes) 10 Resistance 4.0 Seat Position 16 Other 1.80 dist Gym Equipment Cable Column (Body Solid) Rows Details sitting Resistance 60 lbs Reps/Time 2x10 Lat Pull Down Details sitting Resistance 60 lbs Reps/Time 2x10 Therapeutic Exercises Standing Exercises heel cord stretch Standing Exercise Name heel cord stretch Side bilateral Equipment Used HOLLY Reps/Minutes 2x30 sec HS stretch Standing Exercise Name hamstring stretch Side bilateral Equipment Used stairs Reps/Minutes 2x30 sec Other Exercises Hurdles Other Exercise Name step over hurdles in// bars Side bilateral Resistance 4 lb AW Equipment Used // bars Reps/Minutes x8 Comments fwd, side-stepping Manual Therapy Treatment Soft Tissue Mobilization lumbar scar tissue Body Location bilateral Mobilization Type Myofascial Release Rolling Intensity/Depth Moderate Body Position Sidelying lumbar paraspinals and QL Body Location bilateral Mobilization Type Myofascial Release Rolling Intensity/Depth Moderate Body Position Sidelying PT-OP-R Modalities Start: 05/02/18 13:13 Freq: Status: Active Protocol: Document 08/07/18 12:00 RCC (Rec: 08/07/18 15:09 RCC [email or web address]) Hot Pack/Cold Pack Treatment Cold Pack Location bilateral hip/buttock Patient Position Hooklying Treatment Duration (minutes) 10 Patient Tolerance Good Comments strap for compression PT-OP-T Assessment and Plan Start: 05/02/18 13:13 Freq: Status: Active Protocol: Document 11/27/18 12:05 RCC (Rec: 11/28/18 15:35 RCC [email or web address]) Physical Therapy Assessment Assessment Summary Assessment Pt with R>L pain in lumbar spine today with palpation, but otherwise tolerated exercise with fatigue but less pain and greater pace of activity. Physical Therapy Plan Frequency and Duration Frequency of Treatment 2x/Week Duration of Treatment 8 weeks Plan of Care Start Date 10/14/18 Plan of Care End Date 12/02/18 Next Visit Focus/Plan Next Note Type Treatment Note Next Visit Plan progress light resistance training as tolerate
--- NOTE | 2018-11-30 14:30 | PT.OTN ---
Current Diagnoses Myositis, unspecified (11/30/18) Physical Therapy Treatment Note PT-OP-A Visit Information Start: 05/02/18 13:13 Freq: Status: Active Protocol: Document 11/30/18 13:45 DCW (Rec: 11/30/18 14:30 DCW [id number]) Out-Patient Physical Therapy Visit Information Visit Information Visit Type Treatment Note Visit Start Time 13:45 Visit Stop Time 14:30 Total Visit Minutes 45 Visit Number 57 Number of PIZZA BAKER Visits 0 Evaluation Information Evaluation Date 05/01/18 Precautions Precautions fall precautions on/off machines PT-OP-B Current Condition Start: 05/02/18 13:13 Freq: Status: Active Protocol: Document 05/01/18 12:45 RCC (Rec: 05/02/18 13:42 RCC [email or web address]) Current Condition History of Current Condition Onset Date 2015 Current Complaints SOB, weakness, unable to ambulate for exercise, pain all over body History of Current Condition Pt is a 73 y/o male presenting to physical therapy with a c/ o weakness, SOB with activity, pain throughout the body and inability to walk outdoors for exercise. 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 He states that initially his weakness and loss of function gradually started in 2015 after his from cancer. Pt admits he would sit for 6-8 hours a day, doing nothing. He has a complex medical history (see below). Pt admits that now he is embarrassed to see what little exercise he can do now but is extremely motivated to get better. He has found a female partner which he would like to be able to walk outdoors on trails with. 2 years ago, he was able to walk about 2.5 miles using walking sticks/poles. Treatment Goals Patient/Caregiver Goals walk outdoors on trails for exercise (walking on pavement increases his arthritic pain). Prior Functional Status Baseline Function- Mobility Modified Independent Baseline Function- Gait modified indep with increased time to travel community distances Baseline Function- Recreation/Hobbies trail walking 2.5 miles with walking sticks (2 yrs ago) Current Functional Impairments (Reported) Functional Limitations- Mobility/Gait fatigue/SOB and increased pain with community ambulation Functional Limitations- Recreation/ unable to perform Hobbies Personal Factors Other Personal Factors That May Effect cardiac history with 2 stents Therapy/Recovery placed, OA, L popliteal artery surgery/reconstruction, h/o prostate CA with radiation (45 sessions), HTN, B MIGUEL, depression since 2016 ( of spouse), multiple back and knee surgeries. PT-OP-C Subjective Start: 05/02/18 13:13 Freq: Status: Active Protocol: Document 11/30/18 13:45 DCW (Rec: 11/30/18 14:30 DCW [id number]) OP-PT Subjective Patient Comments Patient Comments Planned to perform reassessment for new POC dates , however pt arrived today reporting feeling lethargic, sore, and did not feel he could walk very well. Decided to put off testing until next visit. PT-OP-E Functional Tests Start: 05/02/18 13:13 Freq: Status: Active Protocol: Document 10/14/18 14:30 GGD (Rec: 10/14/18 14:32 GGD [email or web address]) Functional Tests 6 Minute Walk Test Distance 837 Comments increase in hip pain. PT-OP-F Manual Assessment Start: 08/21/18 11:30 Freq: Status: Active Protocol: Document 09/25/18 16:02 RCC (Rec: 09/25/18 17:07 RCC [email or web address]) Manual Assessments Soft Tissue Assessment Soft Tissue Mobility Assessment mild tension in R QL and slight in iliopsoas on the R. PT-OP-G Mobility & Gait Start: 05/02/18 13:13 Freq: Status: Active Protocol: Document 10/14/18 14:26 GGD (Rec: 10/14/18 14:30 GGD [email or web address]) Stair Climbing Evaluation Technique/Endurance Stair Climbing Direction Ascend and Descend Stair Climbing Technique Step Over Step Number of Steps Climbed 4 Stair Climbing Set # Repetitions (reps) 2 Comments Stair Climbing Comments used one rail. PT-OP-H Neuro Start: 10/02/18 13:36 Freq: Status: Active Protocol: Document 11/27/18 12:05 RCC (Rec: 11/28/18 15:38 RCC [email or web address]) Vital Signs Blood Pressure left arm Blood Pressure (90/60-120/80 mmHg) 138/82 H Blood Pressure Source Manual Cuff PT-OP-M Strength Start: 05/02/18 13:13 Freq: Status: Active Protocol: Document 08/19/18 13:45 RCC (Rec: 08/20/18 11:07 RCC [email or web address]) Hip Strength Hip Manual Muscle Testing Right Flexion (L2) 4 Good External Rotation 3+ Fair+ Internal Rotation 4+ Good+ Left Flexion (L2) 5 Normal External Rotation 3+ Fair+ Internal Rotation 4+ Good+ Knee Strength Knee Manual Muscle Testing Right Flexion (S2) 5 Normal Extension (L3) 5 Normal Left Flexion (S2) 4+ Good+ Extension (L3) 4+ Good+ Ankle/Foot Strength Ankle and Foot Manual Muscle Testing Right Dorsiflexion (L4) 4+ Good+ Left Dorsiflexion (L4) 4+ Good+ PT-OP-Q Treatments Start: 05/02/18 13:13 Freq: Status: Active Protocol: Document 11/30/18 13:45 DCW (Rec: 11/30/18 14:30 DCW [id number]) Cardio Equipment Recumbent Stepper (Sci-Fit) Duration (Minutes) 10 Resistance 4.0 Seat Position 14 Other 2.00 dist Gym Equipment Cable Column (Body Solid) Rows Details sitting Resistance 60 lbs Reps/Time 2x15 Lat Pull Down Details sitting Resistance 60 lbs Reps/Time 2x10 Shuttle Recovery Unilateral Squats Resistance 62# Shuttle Recovery Platform Stable Reps/Time 2x15 ea Bilateral Squats Resistance 87# Shuttle Recovery Platform Stable Reps/Time 2x15 Therapeutic Exercises Standing Exercises heel cord stretch Standing Exercise Name heel cord stretch Side bilateral Equipment Used HOLLY Reps/Minutes 2x30 sec HS stretch Standing Exercise Name hamstring stretch Side bilateral Equipment Used stairs Reps/Minutes 2x30 sec Manual Therapy Treatment Soft Tissue Mobilization lumbar paraspinals and QL Body Location left Mobilization Type Myofascial Release Rolling Intensity/Depth Moderate Body Position Sidelying PT-OP-R Modalities Start: 05/02/18 13:13 Freq: Status: Active Protocol: Document 08/07/18 12:00 RCC (Rec: 08/07/18 15:09 RCC [email or web address]) Hot Pack/Cold Pack Treatment Cold Pack Location bilateral hip/buttock Patient Position Hooklying Treatment Duration (minutes) 10 Patient Tolerance Good Comments strap for compression PT-OP-T Assessment and Plan Start: 05/02/18 13:13 Freq: Status: Active Protocol: Document 11/30/18 13:45 DCW (Rec: 11/30/18 14:30 DCW [id number]) Physical Therapy Assessment Goals Stair climbing [facility] Goal (LTG) climb stair without holding railings x 4 steps x2 10/14/18 climbed stairs with one rail LTG Duration 8 weeks 6 minute walk test Impairment 6 MWT- 862 ft Short Term Goal (STG) >1,000 ft with 6 Minute Walk Test to improve exercise tolerance and decrease risk for falls. *not tested 08/19/18 d/t new onset pain 10/14/18 837 ft with increase in hip pain STG Duration 4 weeks Christmas Bell Ringer Goal (LTG) >1,200 ft with 6 Minute Walk Test to improve exercise tolerance and decrease risk for falls. LTG Duration 8 weeks trail walking Impairment inability to walk on trails due to pain and fatigue Short Term Goal (STG) pt will walk outdoors on trails with bilateral walking sticks for 15 min, 3 days per week. 10/14/18 walking indoors only *walking outdoors 2 days per week until this week d/t new onset pain 08/19/18 STG Duration 4 weeks Christmas Bell Ringer Goal (LTG) pt will walk outdoors on trails with bilateral walking sticks for 30 min, 5 days per week as part of an indep. home program for exercise and cardiovascular benefits. LTG Duration 8 weeks LE strength Impairment LE weakness Short Term Goal (STG) 4/5 or greater LE strength with MMT to improve functional mobility and tolerance to stairs in community. *good progress- hip ER still < 4/5 with MMT but improved 08/19 STG Duration 4 weeks [facility] Goal (LTG) 4+/5 or greater LE strength with MMT to improve functional moblity and tolerance to stairs in community. LTG Duration 8 weeks Assessment Summary Assessment Excellent BP today, measuring 130/78, pt tolerated treatment fairly, but was noticeably more fatigued than normal. Physical Therapy Plan Frequency and Duration Frequency of Treatment 2x/Week Duration of Treatment 8 weeks Plan of Care Start Date 10/14/18 Plan of Care End Date 12/02/18 Next Visit Focus/Plan Next Note Type Progress Note Next Visit Plan progress light resistance training as tolerate
--- NOTE | 2018-12-03 12:05 | PT.OTN ---
Current Diagnoses Myositis, unspecified (12/03/18) Physical Therapy Treatment Note PT-OP-A Visit Information Start: 05/02/18 13:13 Freq: Status: Active Protocol: Document 12/03/18 12:05 RCC (Rec: 12/03/18 13:12 RCC [email or web address]) Out-Patient Physical Therapy Visit Information Visit Information Visit Type Treatment Note Visit Start Time 12:05 Visit Stop Time 12:45 Total Visit Minutes 40 Visit Number 58 Number of TEST FACILITY ENGINEER Visits 0 Evaluation Information Evaluation Date 05/01/18 Precautions Precautions fall precautions on/off machines PT-OP-B Current Condition Start: 05/02/18 13:13 Freq: Status: Active Protocol: Document 05/01/18 12:45 RCC (Rec: 05/02/18 13:42 RCC [email or web address]) Current Condition History of Current Condition Onset Date 2015 Current Complaints SOB, weakness, unable to ambulate for exercise, pain all over body History of Current Condition Pt is a 73 y/o male presenting to physical therapy with a c/ o weakness, SOB with activity, pain throughout the body and inability to walk outdoors for exercise. 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 He states that initially his weakness and loss of function gradually started in 2016 after his from cancer. Pt admits he would sit for 6-8 hours a day, doing nothing. He has a complex medical history (see below). Pt admits that now he is embarrassed to see what little exercise he can do now but is extremely motivated to get better. He has found a female partner which he would like to be able to walk outdoors on trails with. 2 years ago, he was able to walk about 2.5 miles using walking sticks/poles. Treatment Goals Patient/Caregiver Goals walk outdoors on trails for exercise (walking on pavement increases his arthritic pain). Prior Functional Status Baseline Function- Mobility Modified Independent Baseline Function- Gait modified indep with increased time to travel community distances Baseline Function- Recreation/Hobbies trail walking 2.5 miles with walking sticks (2 yrs ago) Current Functional Impairments (Reported) Functional Limitations- Mobility/Gait fatigue/SOB and increased pain with community ambulation Functional Limitations- Recreation/ unable to perform Hobbies Personal Factors Other Personal Factors That May Effect cardiac history with 2 stents Therapy/Recovery placed, OA, L popliteal artery surgery/reconstruction, h/o prostate CA with radiation (45 sessions), HTN, B MIGUEL, depression since 2016 ( of spouse), multiple back and knee surgeries. PT-OP-C Subjective Start: 05/02/18 13:13 Freq: Status: Active Protocol: Document 12/03/18 12:05 RCC (Rec: 12/03/18 13:12 RCC [email or web address]) OP-PT Subjective Patient Comments Patient Comments Pt states he had onset of L hip and back pain upon waking up 2 days ago. He is encouraged that his recovery time appears to be improving. He is able to do some work outside in the yard with less noticable pain. PT-OP-E Functional Tests Start: 05/02/18 13:13 Freq: Status: Active Protocol: Document 12/03/18 12:05 RCC (Rec: 12/03/18 13:12 RCC [email or web address]) Functional Tests 6 Minute Walk Test Comments did not perform today due to pain PT-OP-F Manual Assessment Start: 08/21/18 11:30 Freq: Status: Active Protocol: Document 12/03/18 12:05 RCC (Rec: 12/03/18 13:12 RCC [email or web address]) Manual Assessments Soft Tissue Assessment Soft Tissue Mobility Assessment mod tension L QL PT-OP-G Mobility & Gait Start: 05/02/18 13:13 Freq: Status: Active Protocol: Document 10/14/18 14:26 GGD (Rec: 10/14/18 14:30 GGD [email or web address]) Stair Climbing Evaluation Technique/Endurance Stair Climbing Direction Ascend and Descend Stair Climbing Technique Step Over Step Number of Steps Climbed 4 Stair Climbing Set # Repetitions (reps) 2 Comments Stair Climbing Comments used one rail. PT-OP-H Neuro Start: 10/02/18 13:36 Freq: Status: Active Protocol: Document 11/27/18 12:05 RCC (Rec: 11/28/18 15:38 RCC [email or web address]) Vital Signs Blood Pressure left arm Blood Pressure (90/60-120/80 mmHg) 138/82 H Blood Pressure Source Manual Cuff PT-OP-M Strength Start: 05/02/18 13:13 Freq: Status: Active Protocol: Document 12/03/18 12:05 RCC (Rec: 12/03/18 13:12 RCC [email or web address]) Hip Strength Hip Manual Muscle Testing Right Flexion (L2) 4+ Good+ External Rotation 4- Good- Internal Rotation 4+ Good+ Left Flexion (L2) 5 Normal External Rotation 4- Good- Internal Rotation 4+ Good+ Knee Strength Knee Manual Muscle Testing Right Flexion (S2) 5 Normal Extension (L3) 5 Normal Left Flexion (S2) 4+ Good+ Extension (L3) 5 Normal Ankle/Foot Strength Ankle and Foot Manual Muscle Testing Right Dorsiflexion (L4) 4+ Good+ Left Dorsiflexion (L4) 4+ Good+ PT-OP-Q Treatments Start: 05/02/18 13:13 Freq: Status: Active Protocol: Document 12/03/18 12:05 RCC (Rec: 12/03/18 13:12 RCC [email or web address]) Cardio Equipment Recumbent Stepper (Sci-Fit) Duration (Minutes) 10 Resistance 4.0 Seat Position 14 Other 1.71 dist Therapeutic Exercises Sidelying Exercises Rectus femoris and psoas stretch Side left Reps/Minutes 3x30 sec each Sitting Exercises sidebend and rotation stretches Sitting Exercise Name gentle lumbar SB and rotation stretches to the L Side right Reps/Minutes 3x30 sec each Standing Exercises heel cord stretch Standing Exercise Name heel cord stretch Side bilateral Equipment Used HOLLY Reps/Minutes 2x30 sec HS stretch Standing Exercise Name hamstring stretch Side bilateral Equipment Used stairs Reps/Minutes 2x30 sec Manual Therapy Treatment Soft Tissue Mobilization lumbar scar tissue Body Location bilateral Mobilization Type Myofascial Release Rolling Intensity/Depth Moderate Body Position Sidelying lumbar paraspinals and QL Body Location left Mobilization Type Myofascial Release Rolling Intensity/Depth Moderate Body Position Sidelying PT-OP-R Modalities Start: 05/02/18 13:13 Freq: Status: Active Protocol: Document 08/07/18 12:00 RCC (Rec: 08/07/18 15:09 RCC [email or web address]) Hot Pack/Cold Pack Treatment Cold Pack Location bilateral hip/buttock Patient Position Hooklying Treatment Duration (minutes) 10 Patient Tolerance Good Comments strap for compression PT-OP-T Assessment and Plan Start: 05/02/18 13:13 Freq: Status: Active Protocol: Document 12/03/18 12:05 RCC (Rec: 12/03/18 13:12 RCC [email or web address]) Physical Therapy Assessment Goals Stair climbing Skilled Nursing Goal (LTG) climb stair without holding railings x 4 steps x2 4/24/19 climbed stairs with one rail 12/03/18: alternating steps with unilat rail LTG Duration 8 weeks 6 minute walk test Impairment 6 MWT- 862 ft Short Term Goal (STG) >1,000 ft with 6 Minute Walk Test to improve exercise tolerance and decrease risk for falls. *not tested 08/19/18 d/t new onset pain 10/14/18 837 ft with increase in hip pain STG Duration 4 weeks Associate Artistic Director Goal (LTG) >1,200 ft with 6 Minute Walk Test to improve exercise tolerance and decrease risk for falls. LTG Duration 8 weeks trail walking Impairment inability to walk on trails due to pain and fatigue Short Term Goal (STG) pt will walk outdoors on trails with bilateral walking sticks for 15 min, 3 days per week. 10/14/18 walking indoors only *walking outdoors 2 days per week until this week d/t new onset pain 08/19/18 12/03/18: 3x/wk walking or exercise outdoors- not up to 15 min STG Duration 4 weeks Skilled Nursing Goal (LTG) pt will walk outdoors on trails with bilateral walking sticks for 30 min, 5 days per week as part of an indep. home program for exercise and cardiovascular benefits. LTG Duration 8 weeks LE strength Impairment LE weakness Short Term Goal (STG) 4/5 or greater LE strength with MMT to improve functional mobility and tolerance to stairs in community. *good progress- hip ER still < 4/5 with MMT but improved 08/1912/03/18: mild improvements but still not 4/5 with all MMT STG Duration 4 weeks Skilled Nursing Goal (LTG) 4+/5 or greater LE strength with MMT to improve functional moblity and tolerance to stairs in community. LTG Duration 8 weeks Progress Towards Goals Progress Towards Goals Slow Progress due to Activity Tolerance Slow Progress due to Medical Issues Slow Progress - Other Assessment Summary Assessment Pt progressing with LE strengthening slowly, but continues to be motivated and is working on progressing his activity level and walking at home when able. His new onset of pain in L hip and low back likely due to poor body mechanics and recent increase in clinic activity with resistance. Pt unable to tolerate a 6 Minute Walk Test today. Overall, pt would continue to benefit from skilled physical therapy intervention to progress his walking program to 5x/week, improve strength and stability of the core and LEs, and to allow for improved overall functional activity to decrease progression of functional decline. Physical Therapy Plan Frequency and Duration Frequency of Treatment 2x/Week Duration of Treatment 8 weeks Plan of Care Start Date 12/03/18 Plan of Care End Date 01/28/19 Therapeutic Interventions Therapeutic Interventions Aquatic Therapy Balance Training Gait Training Home Exercise Program Manual Therapy Neuromuscular Re-education Orthotic/Prosthetic Management Patient/Caregiver Education Self-Care/Home Management Taping Therapeutic Activities Therapeutic Exercises Modalities Cold Pack/Ice Massage Electric Stimulation Hot Packs Ultrasound Next Visit Focus/Plan Next Note Type Treatment Note Next Visit Plan light LE and core stabilization.
--- NOTE | 2018-12-03 12:05 | PT.OPPOC ---
Current Diagnoses Myositis, unspecified (12/03/18) Provider Visit Care Team Role Provider Type Clement Deleon MD Family Provider Non-Staff Specialty: Cardiology Address: [address] [place] [address] [address], [place], [address] Email: Spike Mojica MD Attending Provider Physician Primary Care Provider Specialty: Family Practice Address: [address] [facility] [place], [address] Email: Plan Of Care PT-OP-T Assessment and Plan Start: 05/02/18 13:13 Freq: Status: Active Protocol: Document 12/03/18 12:05 RCC (Rec: 12/03/18 13:12 RCC [email or web address]) Physical Therapy Assessment Goals Stair climbing Communication Manager Goal (LTG) climb stair without holding railings x 4 steps x2 10/14/18 climbed stairs with one rail 12/03/18: alternating steps with unilat rail LTG Duration 8 weeks 6 minute walk test Impairment 6 MWT- 862 ft Short Term Goal (STG) >1,000 ft with 6 Minute Walk Test to improve exercise tolerance and decrease risk for falls. *not tested 08/19/18 d/t new onset pain 10/14/18 837 ft with increase in hip pain STG Duration 4 weeks Communication Manager Goal (LTG) >1,200 ft with 6 Minute Walk Test to improve exercise tolerance and decrease risk for falls. LTG Duration 8 weeks trail walking Impairment inability to walk on trails due to pain and fatigue Short Term Goal (STG) pt will walk outdoors on trails with bilateral walking sticks for 15 min, 3 days per week. 10/14/18 walking indoors only *walking outdoors 2 days per week until this week d/t new onset pain 08/19/18 12/03/18: 3x/wk walking or exercise outdoors- not up to 15 min STG Duration 4 weeks Communication Manager Goal (LTG) pt will walk outdoors on trails with bilateral walking sticks for 30 min, 5 days per week as part of an indep. home program for exercise and cardiovascular benefits. LTG Duration 8 weeks LE strength Impairment LE weakness Short Term Goal (STG) 4/5 or greater LE strength with MMT to improve functional mobility and tolerance to stairs in community. *good progress- hip ER still < 4/5 with MMT but improved 08/1912/03/18: mild improvements but still not 4/5 with all MMT STG Duration 4 weeks Communication Manager Goal (LTG) 4+/5 or greater LE strength with MMT to improve functional mobility and tolerance to stairs in community. LTG Duration 8 weeks Progress Towards Goals Progress Towards Goals Slow Progress due to Activity Tolerance Slow Progress due to Medical Issues Slow Progress - Other Assessment Summary Assessment Pt progressing with LE strengthening slowly, but continues to be motivated and is working on progressing his activity level and walking at home when able. His new onset of pain in L hip and low back likely due to poor body mechanics and recent increase in clinic activity with resistance. Pt unable to tolerate a 6 Minute Walk Test today. Overall, pt would continue to benefit from skilled physical therapy intervention to progress his walking program to 5x/week, improve strength and stability of the core and LEs, and to allow for improved overall functional activity to decrease progression of functional decline. Physical Therapy Plan Frequency and Duration Frequency of Treatment 2x/Week Duration of Treatment 8 weeks Plan of Care Start Date 12/03/18 Plan of Care End Date 01/28/19 Therapeutic Interventions Therapeutic Interventions Aquatic Therapy Balance Training Gait Training Home Exercise Program Manual Therapy Neuromuscular Re-education Orthotic/Prosthetic Management Patient/Caregiver Education Self-Care/Home Management Taping Therapeutic Activities Therapeutic Exercises Modalities Cold Pack/Ice Massage Electric Stimulation Hot Packs Ultrasound Next Visit Focus/Plan Next Note Type Treatment Note Next Visit Plan light LE and core stabilization. Plan of Care Dates Plan of Care Start Date 12/03/18 Plan of Care End Date 01/28/19 Please Sign and Return: I have reviewed this Plan of Care and certify that the skilled therapy services above are required to meet the patient?s needs. Physician Signature Date Printed Name and Credentials Clinical Instructor Signature Printed Name and Credentials
--- NOTE | 2018-12-15 12:38 | PT.OTN ---
Current Diagnoses Myositis, unspecified (12/15/18) Physical Therapy Treatment Note PT-OP-A Visit Information Start: 05/02/18 13:13 Freq: Status: Active Protocol: Document 12/15/18 12:00 DCW (Rec: 12/15/18 12:38 DCW [id number]) Out-Patient Physical Therapy Visit Information Visit Information Visit Type Discharge Summary Visit Start Time 12:00 Visit Stop Time 12:26 Total Visit Minutes 26 Visit Number 59 Number of DIRECTOR OF SALES AND MARKETING Visits 0 Evaluation Information Evaluation Date 05/01/18 PT-OP-B Current Condition Start: 05/02/18 13:13 Freq: Status: Active Protocol: Document 05/01/18 12:45 RCC (Rec: 05/02/18 13:42 RCC [email or web address]) Current Condition History of Current Condition Onset Date 2015 Current Complaints SOB, weakness, unable to ambulate for exercise, pain all over body History of Current Condition Pt is a 73 y/o male presenting to physical therapy with a c/ o weakness, SOB with activity, pain throughout the body and inability to walk outdoors for exercise. 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 He states that initially his weakness and loss of function gradually started in 2015 after his from cancer. Pt admits he would sit for 6-8 hours a day, doing nothing. He has a complex medical history (see below). Pt admits that now he is embarrassed to see what little exercise he can do now but is extremely motivated to get better. He has found a female partner which he would like to be able to walk outdoors on trails with. 2 years ago, he was able to walk about 2.5 miles using walking sticks/poles. Treatment Goals Patient/Caregiver Goals walk outdoors on trails for exercise (walking on pavement increases his arthritic pain). Prior Functional Status Baseline Function- Mobility Modified Independent Baseline Function- Gait modified indep with increased time to travel community distances Baseline Function- Recreation/Hobbies trail walking 2.5 miles with walking sticks (2 yrs ago) Current Functional Impairments (Reported) Functional Limitations- Mobility/Gait fatigue/SOB and increased pain with community ambulation Functional Limitations- Recreation/ unable to perform Hobbies Personal Factors Other Personal Factors That May Effect cardiac history with 2 stents Therapy/Recovery placed, OA, L popliteal artery surgery/reconstruction, h/o prostate CA with radiation (45 sessions), HTN, B MIGUEL, depression since 2016 ( of spouse), multiple back and knee surgeries. PT-OP-C Subjective Start: 05/02/18 13:13 Freq: Status: Active Protocol: Document 12/15/18 12:00 DCW (Rec: 12/15/18 12:38 DCW [id number]) OP-PT Subjective Patient Comments Patient Comments Pt arrives today saying after discussing his current situation with his physician, he would like to take a break from therapy to allow his back to fully heal. PT-OP-E Functional Tests Start: 05/02/18 13:13 Freq: Status: Active Protocol: Document 12/03/18 12:05 RCC (Rec: 12/03/18 13:12 RCC [email or web address]) Functional Tests 6 Minute Walk Test Comments did not perform today due to pain PT-OP-F Manual Assessment Start: 08/21/18 11:30 Freq: Status: Active Protocol: Document 12/03/18 12:05 RCC (Rec: 12/03/18 13:12 RCC [email or web address]) Manual Assessments Soft Tissue Assessment Soft Tissue Mobility Assessment mod tension L QL PT-OP-G Mobility & Gait Start: 05/02/18 13:13 Freq: Status: Active Protocol: Document 10/14/18 14:26 GGD (Rec: 10/14/18 14:30 GGD [email or web address]) Stair Climbing Evaluation Technique/Endurance Stair Climbing Direction Ascend and Descend Stair Climbing Technique Step Over Step Number of Steps Climbed 4 Stair Climbing Set # Repetitions (reps) 2 Comments Stair Climbing Comments used one rail. PT-OP-H Neuro Start: 10/02/18 13:36 Freq: Status: Active Protocol: Document 11/27/18 12:05 RCC (Rec: 11/28/18 15:38 RCC [email or web address]) Vital Signs Blood Pressure left arm Blood Pressure (90/60-120/80 mmHg) 138/82 H Blood Pressure Source Manual Cuff PT-OP-M Strength Start: 05/02/18 13:13 Freq: Status: Active Protocol: Document 12/03/18 12:05 RCC (Rec: 12/03/18 13:12 RCC [email or web address]) Hip Strength Hip Manual Muscle Testing Right Flexion (L2) 4+ Good+ External Rotation 4- Good- Internal Rotation 4+ Good+ Left Flexion (L2) 5 Normal External Rotation 4- Good- Internal Rotation 4+ Good+ Knee Strength Knee Manual Muscle Testing Right Flexion (S2) 5 Normal Extension (L3) 5 Normal Left Flexion (S2) 4+ Good+ Extension (L3) 5 Normal Ankle/Foot Strength Ankle and Foot Manual Muscle Testing Right Dorsiflexion (L4) 4+ Good+ Left Dorsiflexion (L4) 4+ Good+ PT-OP-Q Treatments Start: 05/02/18 13:13 Freq: Status: Active Protocol: Document 12/15/18 12:00 DCW (Rec: 12/15/18 12:38 DCW [id number]) Therapeutic Exercises Supine Exercises 2 Supine Exercise Name Lumbar flexion stretch Standing Exercises 3 Standing Exercise Name Trunk Rotation stretch HS stretch Standing Exercise Name hamstring stretch Side bilateral Equipment Used stairs Reps/Minutes 2x30 sec 2 Standing Exercise Name Lumbar rotation stretch 1 Standing Exercise Name Lumbar lateral flexion stretchLumbar lateral flexion stretch PT-OP-R Modalities Start: 05/02/18 13:13 Freq: Status: Active Protocol: Document 08/07/18 12:00 RCC (Rec: 08/07/18 15:09 RCC [email or web address]) Hot Pack/Cold Pack Treatment Cold Pack Location bilateral hip/buttock Patient Position Hooklying Treatment Duration (minutes) 10 Patient Tolerance Good Comments strap for compression PT-OP-T Assessment and Plan Start: 05/02/18 13:13 Freq: Status: Active Protocol: Document 12/15/18 12:00 DCW (Rec: 12/15/18 12:38 DCW [id number]) Physical Therapy Assessment Goals Stair climbing Coal Chemist Goal (LTG) climb stair without holding railings x 4 steps x2 10/14/18 climbed stairs with one rail 12/03/18: alternating steps with unilat rail LTG Duration 8 weeks 6 minute walk test Impairment 6 MWT- 862 ft Short Term Goal (STG) >1,000 ft with 6 Minute Walk Test to improve exercise tolerance and decrease risk for falls. *not tested 08/19/18 d/t new onset pain 10/14/18 837 ft with increase in hip pain STG Duration 4 weeks Fpc Goal (LTG) >1,200 ft with 6 Minute Walk Test to improve exercise tolerance and decrease risk for falls. LTG Duration 8 weeks trail walking Impairment inability to walk on trails due to pain and fatigue Short Term Goal (STG) pt will walk outdoors on trails with bilateral walking sticks for 15 min, 3 days per week. 10/14/18 walking indoors only *walking outdoors 2 days per week until this week d/t new onset pain 08/19/18 12/03/18: 3x/wk walking or exercise outdoors- not up to 15 min STG Duration 4 weeks Fpc Goal (LTG) pt will walk outdoors on trails with bilateral walking sticks for 30 min, 5 days per week as part of an indep. home program for exercise and cardiovascular benefits. LTG Duration 8 weeks LE strength Impairment LE weakness Short Term Goal (STG) 4/5 or greater LE strength with MMT to improve functional mobility and tolerance to stairs in community. *good progress- hip ER still < 4/5 with MMT but improved 08/1912/03/18: mild improvements but still not 4/5 with all MMT STG Duration 4 weeks Fpc Goal (LTG) 4+/5 or greater LE strength with MMT to improve functional moblity and tolerance to stairs in community. LTG Duration 8 weeks Assessment Summary Assessment Pt will be discharge from skilled therapy at this time, per pt request for a break from PT Physical Therapy Plan Frequency and Duration Frequency of Treatment 2x/Week Duration of Treatment 8 weeks Plan of Care Start Date 12/03/18 Plan of Care End Date 01/28/19 Therapeutic Interventions Therapeutic Interventions Aquatic Therapy Balance Training Gait Training Home Exercise Program Manual Therapy Neuromuscular Re-education Orthotic/Prosthetic Management Patient/Caregiver Education Self-Care/Home Management Taping Therapeutic Activities Therapeutic Exercises Modalities Cold Pack/Ice Massage Electric Stimulation Hot Packs Ultrasound Next Visit Focus/Plan Next Note Type Treatment Note Next Visit Plan light LE and core stabilization.
== END 2018-12-16 16:36 | disposition home or self-care (01) ==
LOC: PHYS 12:00
PROVIDERS: Family Provider Internal Medicine Cardiovascular Disease; PCP Family Medicine; Visit Provider Family Medicine
DX: M60.9 Myositis, unspecified (principal)
CPT/HCPCS: 97010; 97110; 97112; 97140; 97162; 97530; 97535

== ENCOUNTER → 2020-08-14 14:16 | Outpatient (CLI) | payer MEDICARE, OTHER, SELFPAY ==
[2020-08-14 16:31] LABS: COVID19 -Nasal RAPID Negative (Negative)
== END ==
PROVIDERS: Family Provider Internal Medicine Cardiovascular Disease; PCP Student in an Organized Health Care Education/Training Program; Visit Provider Physician Assistant
DX: Z01.812 Encounter for preprocedural laboratory examination (principal); Z20.822 Contact with and (suspected) exposure to COVID-19
CPT/HCPCS: 87635; C9803

== ENCOUNTER 2021-01-26 13:30 | Outpatient (RCR) | payer MEDICARE, OTHER, SELFPAY ==
--- NOTE | 2020-11-21 15:59 | PT.OIE ---
Current Diagnoses Benign paroxysmal vertigo, unspecified ear (11/21/20) Other myositis, unspecified site (11/21/20) Past Medical History (Last Updated 10/08/20 @ 16:47 by Yunior Atkinson MD) Coronary artery disease Hyperlipidemia Hypertension Kidney stones Past Surgical History (Last Reviewed 04/29/19 @ 10:50 by Johan Ferguson MD) H/O lithotripsy Hx of appendectomy Visit Care Team Role Provider Type Yunior Atkinson MD Attending Provider Physician Family Provider Primary Care Provider Referring Provider Specialty: Internal Medicine Address: [address] [place] [address], [address], [facility] Email: [email or web address] Physical Therapy Initial Evaluation PT-OP-A Visit Information Start: 11/17/20 14:38 Freq: Status: Active Protocol: Document 11/21/20 09:00 AMB (Rec: 11/22/20 15:39 AMB [email or web address]) Out-Patient Physical Therapy Visit Information Visit Information Visit Type Initial Evaluation Visit Start Time 09:00 Visit Stop Time 09:45 Total Visit Minutes 45 Visit Number 1 PT-OP-B Current Condition Start: 11/17/20 14:38 Freq: Status: Active Protocol: Document 11/21/20 09:01 AMB (Rec: 11/21/20 09:18 AMB [id number]) Current Condition History of Current Condition Onset Date One month ago Current Complaints dizziness getting out of bed/ chronic pain with myositis History of Current Condition Dizzy getting out of bed for the past month. Worst about a week ago. Rolling to the left is the worst. Looking down increases symptoms. Lasts 5-10 seconds. Does have myositis that makes mobility very challenging. 2007 high stress started myositis. Would like to work on stretching exercises. Walking currently is very limited- left knee is problematic with multiple arthroscopic surgeries, especially with stairs, lives in 2 story house . Treatment Goals Patient/Caregiver Goals Walk more/get rid of dizziness Prior Functional Status Baseline Function- ADL's Modified Independent Baseline Function- Mobility Modified Independent Personal Factors Other Personal Factors That May Effect myositis, dizziness, multiple Therapy/Recovery orthopedic issues, poor sensation in feet PT-OP-C Subjective Start: 11/17/20 14:38 Freq: Status: Active Protocol: Document 11/21/20 09:00 AMB (Rec: 11/22/20 15:39 AMB [email or web address]) Patient Questionnaires Dizziness Handicap Inventory DHI Score 60 DHI Functional Impairment 60 to 79% Impaired (Score 60- 79) PT-OP-G Mobility & Gait Start: 11/22/20 15:28 Freq: Status: Active Protocol: Document 11/21/20 09:00 AMB (Rec: 11/22/20 15:39 AMB [email or web address]) OP Gait Assessment Comments Gait Comments Ambulates with SPC, flat lumbar spine, WBOS, lack of trunk rotation, antalgic gait PT-OP-O Vestibular Start: 11/17/20 14:38 Freq: Status: Active Protocol: Document 11/21/20 09:00 AMB (Rec: 11/22/20 15:39 AMB [email or web address]) Vestibular Assessment Screening Tests Vestibular Artery Screen Negative Sharp-Prabhakar Test Negative Visual Testing Smooth Pursuits Horizontal WFL Smooth Pursuits Vertical WFL Saccades Horizontal WFL Saccades Vertical WFL Thrust Head Negative Positional Testing [place]-Hallpike Positive Left Comments Vestibular Comments Pt lightly symptomatic with ana-hallpike to the left, all sx were left sided and due to pt's pain and weakness did not perform other tests, but will reassess at next visit. PT-OP-T Assessment and Plan Start: 11/17/20 14:38 Freq: Status: Active Protocol: Document 11/21/20 09:00 AMB (Rec: 11/22/20 15:58 AMB [email or web address]) Physical Therapy Assessment Goals Two Impairment HEP Short Term Goal (STG) Hadley will be independent and consistent with a HEP for strengthening and stretching his LE and core. STG Duration 4 weeks One Impairment dizziness Short Term Goal (STG) Hadley will perform all bed mobility without dizziness. STG Duration 4 weeks Car Builder Goal (LTG) Hadley will have no nystagmus or dizziness with [place]- hallpike or Brandon maneuver. LTG Duration 8 weeks 6 minute walk test Impairment unable to walk for 6 minutes without resting Short Term Goal (STG) Hadley will complete a 6 minute walk test with SPC over smooth surfaces. STG Duration 4 weeks Residential Goal (LTG) Hadley will walk at least 700 feet in 6 minutes to walk half of what would be expected for his age/gender. LTG Duration 8 weeks Assessment Summary Assessment Hadley attends physical therapy with possible BPPV and chronic pain/weakness secondary to myositis. We will first work on his dizziness. We had a poor [place]- Hallpike due to his weakness pain, but he did have some dizziness although nystagmus was not visualized. After his dizziness is further evaluated/treated, we will work on gait tolerance, LE strengthening and stretching to help him better manage his pain and improve his baseline function so that he can walk in the community with less pain. Physical Therapy Plan Frequency and Duration Frequency of Treatment 2x/Week Duration of Treatment 8 weeks Plan of Care Start Date 11/21/20 Plan of Care End Date 01/16/21 Therapeutic Interventions Therapeutic Interventions Aquatic Therapy,Balance Training,Gait Training,Home Exercise Program,Manual Therapy,Neuromuscular Re- education,Self-Care/Home Management,Therapeutic Activities,Therapeutic Exercises Next Visit Focus/Plan Next Note Type Treatment Note Next Visit Plan reassess with eliu
--- NOTE | 2020-11-21 15:59 | PT.OPPOC ---
Physical, Occupational & Speech Therapy At [facility] Current Diagnoses Benign paroxysmal vertigo, unspecified ear (11/21/20) Other myositis, unspecified site (11/21/20) Visit Care Team Role Provider Type Yunior Atkinson MD Attending Provider Physician Family Provider Primary Care Provider Referring Provider Specialty: Internal Medicine Address: [address] [place] [address], [address], [facility] Email: [email or web address] Plan Of Care PT-OP-T Assessment and Plan Start: 11/17/20 14:38 Freq: Status: Active Protocol: Document 11/21/20 09:00 AMB (Rec: 11/22/20 15:58 AMB [email or web address]) Physical Therapy Assessment Goals Two Impairment HEP Short Term Goal (STG) Hadley will be independent and consistent with a HEP for strengthening and stretching his LE and core. STG Duration 4 weeks One Impairment dizziness Short Term Goal (STG) Hadley will perform all bed mobility without dizziness. STG Duration 4 weeks Long-Term Goal (LTG) Hadley will have no nystagmus or dizziness with [place]- hallpike or Brandon maneuver. LTG Duration 8 weeks 6 minute walk test Impairment unable to walk for 6 minutes without resting Short Term Goal (STG) Hadley will complete a 6 minute walk test with SPC over smooth surfaces. STG Duration 4 weeks Long-Term Goal (LTG) Hadley will walk at least 700 feet in 6 minutes to walk half of what would be expected for his age/gender. LTG Duration 8 weeks Assessment Summary Assessment Hadley attends physical therapy with possible BPPV and chronic pain/weakness secondary to myositis. We will first work on his dizziness. We had a poor [place]- Hallpike due to his weakness pain, but he did have some dizziness although nystagmus was not visualized. After his dizziness is further evaluated/treated, we will work on gait tolerance, LE strengthening and stretching to help him better manage his pain and improve his baseline function so that he can walk in the community with less pain. Physical Therapy Plan Frequency and Duration Frequency of Treatment 2x/Week Duration of Treatment 8 weeks Plan of Care Start Date 11/21/20 Plan of Care End Date 01/16/21 Therapeutic Interventions Therapeutic Interventions Aquatic Therapy,Balance Training,Gait Training,Home Exercise Program,Manual Therapy,Neuromuscular Re- education,Self-Care/Home Management,Therapeutic Activities,Therapeutic Exercises Next Visit Focus/Plan Next Note Type Treatment Note Next Visit Plan reassess with eliu Plan of Care Dates Plan of Care Start Date 11/21/20 Plan of Care End Date 01/16/21 Electronically Signed by: Marta Garay, PT 11/22/20 2309 Please Sign and Return: I have reviewed this Plan of Care and certify that the skilled therapy services above are required to meet the patient?s needs. Physician Signature Date Printed Name and Credentials Clinical Instructor Signature Printed Name and Credentials
--- NOTE | 2020-11-24 16:08 | PT.OTN ---
Current Diagnoses Benign paroxysmal vertigo, unspecified ear (11/24/20) Other myositis, unspecified site (11/24/20) Physical Therapy Treatment Note PT-OP-A Visit Information Start: 11/17/20 14:38 Freq: Status: Active Protocol: Document 11/24/20 10:15 AMB (Rec: 11/24/20 10:49 AMB [id number]) Out-Patient Physical Therapy Visit Information Visit Information Visit Type Treatment Note Visit Start Time 10:15 Visit Stop Time 11:00 Total Visit Minutes 45 Visit Number 2 PT-OP-B Current Condition Start: 11/17/20 14:38 Freq: Status: Active Protocol: Document 11/21/20 09:01 AMB (Rec: 11/21/20 09:18 AMB [id number]) Current Condition History of Current Condition Onset Date One month ago Current Complaints dizziness getting out of bed/ chronic pain with myositis History of Current Condition Dizzy getting out of bed for the past month. Worst about a week ago. Rolling to the left is the worst. Looking down increases symptoms. Lasts 5-10 seconds. Does have myositis that makes mobility very challenging. 2007 high stress started myositis. Would like to work on stretching exercises. Walking currently is very limited- left knee is problematic with multiple arthroscopic surgeries, especially with stairs, lives in 2 story house . Treatment Goals Patient/Caregiver Goals Walk more/get rid of dizziness Prior Functional Status Baseline Function- ADL's Modified Independent Baseline Function- Mobility Modified Independent Personal Factors Other Personal Factors That May Effect myositis, dizziness, multiple Therapy/Recovery orthopedic issues, poor sensation in feet PT-OP-C Subjective Start: 11/17/20 14:38 Freq: Status: Active Protocol: Document 11/24/20 10:15 AMB (Rec: 11/24/20 16:08 AMB [email or web address]) OP-PT Subjective Patient Comments Patient Comments Pt states he has been more dizzy to the right and less to the left since last treatment . PT-OP-G Mobility & Gait Start: 11/22/20 15:28 Freq: Status: Active Protocol: Document 11/21/20 09:00 AMB (Rec: 11/22/20 15:39 AMB [email or web address]) OP Gait Assessment Comments Gait Comments Ambulates with SPC, flat lumbar spine, WBOS, lack of trunk rotation, antalgic gait PT-OP-O Vestibular Start: 11/17/20 14:38 Freq: Status: Active Protocol: Document 11/21/20 09:00 AMB (Rec: 11/22/20 15:39 AMB [email or web address]) Vestibular Assessment Screening Tests Vestibular Artery Screen Negative Sharp-Prabhakar Test Negative Visual Testing Smooth Pursuits Horizontal WFL Smooth Pursuits Vertical WFL Saccades Horizontal WFL Saccades Vertical WFL Thrust Head Negative Positional Testing Vand[place]-Hallpike Positive Left Comments Vestibular Comments Pt lightly symptomatic with vandana-hallpike to the left, all sx were left sided and due to pt's pain and weakness did not perform other tests, but will reassess at next visit. PT-OP-Q Treatments Start: 11/17/20 14:38 Freq: Status: Active Protocol: Document 11/24/20 10:15 AMB (Rec: 11/24/20 16:08 AMB [email or web address]) Canalithic Repositioning BPPV Treatment [place] Affected Canal(s) R Reps 2 PT-OP-T Assessment and Plan Start: 11/17/20 14:38 Freq: Status: Active Protocol: Document 11/24/20 10:15 AMB (Rec: 11/24/20 15:55 AMB [email or web address]) Physical Therapy Assessment Assessment Summary Assessment Bill had nystagmus with R supine roll, but did look torsional, so checked R [place]- Hallpike. Pt did have more symptoms on the right and less on the left after the first treatment, so possible he did have bilateral, will need to recheck both and horizontal canal next visit. Physical Therapy Plan Next Visit Focus/Plan Next Note Type Treatment Note Next Visit Plan Check horizontal canal on the Right
--- NOTE | 2020-11-28 11:58 | PT.OTN ---
Current Diagnoses Benign paroxysmal vertigo, unspecified ear (11/28/20) Other myositis, unspecified site (11/28/20) Physical Therapy Treatment Note PT-OP-A Visit Information Start: 11/17/20 14:38 Freq: Status: Active Protocol: Document 11/28/20 11:00 AMB (Rec: 11/28/20 11:36 AMB [id number]) Out-Patient Physical Therapy Visit Information Visit Information Visit Type Treatment Note Visit Start Time 11:00 Visit Stop Time 11:45 Total Visit Minutes 45 Visit Number 3 PT-OP-B Current Condition Start: 11/17/20 14:38 Freq: Status: Active Protocol: Document 11/21/20 09:01 AMB (Rec: 11/21/20 09:18 AMB [id number]) Current Condition History of Current Condition Onset Date One month ago Current Complaints dizziness getting out of bed/ chronic pain with myositis History of Current Condition Dizzy getting out of bed for the past month. Worst about a week ago. Rolling to the left is the worst. Looking down increases symptoms. Lasts 5-10 seconds. Does have myositis that makes mobility very challenging. 2007 high stress started myositis. Would like to work on stretching exercises. Walking currently is very limited- left knee is problematic with multiple arthroscopic surgeries, especially with stairs, lives in 2 story house . Treatment Goals Patient/Caregiver Goals Walk more/get rid of dizziness Prior Functional Status Baseline Function- ADL's Modified Independent Baseline Function- Mobility Modified Independent Personal Factors Other Personal Factors That May Effect myositis, dizziness, multiple Therapy/Recovery orthopedic issues, poor sensation in feet PT-OP-C Subjective Start: 11/17/20 14:38 Freq: Status: Active Protocol: Document 11/28/20 11:00 AMB (Rec: 11/28/20 11:36 AMB [id number]) OP-PT Subjective Patient Comments Patient Comments Pt reports resolution of dizziness. Has had a few moments of a little off balance with quick head turns. PT-OP-E Functional Tests Start: 11/22/20 15:28 Freq: Status: Active Protocol: Document 11/28/20 11:36 AMB (Rec: 11/28/20 11:37 AMB [id number]) Functional Tests 10 Meter Walk Test Distance 10s Device Used SPC Five Times Sit to Stand Test Score 24 Comments from 64cm seat, no UEs PT-OP-G Mobility & Gait Start: 11/22/20 15:28 Freq: Status: Active Protocol: Document 11/21/20 09:00 AMB (Rec: 11/22/20 15:39 AMB [email or web address]) OP Gait Assessment Comments Gait Comments Ambulates with SPC, flat lumbar spine, WBOS, lack of trunk rotation, antalgic gait PT-OP-O Vestibular Start: 11/17/20 14:38 Freq: Status: Active Protocol: Document 11/21/20 09:00 AMB (Rec: 11/22/20 15:39 AMB [email or web address]) Vestibular Assessment Screening Tests Vestibular Artery Screen Negative Sharp-Prabhakar Test Negative Visual Testing Smooth Pursuits Horizontal WFL Smooth Pursuits Vertical WFL Saccades Horizontal WFL Saccades Vertical WFL Thrust Head Negative Positional Testing [place]-Hallpike Positive Left Comments Vestibular Comments Pt lightly symptomatic with ana-hallpike to the left, all sx were left sided and due to pt's pain and weakness did not perform other tests, but will reassess at next visit. PT-OP-Q Treatments Start: 11/17/20 14:38 Freq: Status: Active Protocol: Document 11/28/20 11:00 AMB (Rec: 11/28/20 11:55 AMB [email or web address]) Cardio Equipment Recumbent Elliptical ([employer]) Duration (Minutes) 5 Resistance 2 Therapeutic Exercises Sitting Exercises 1 Sitting Exercise Name sit to stand Reps/Minutes 5 Comments 64 cm surface no UEs Standing Exercises shoulder extension Standing Exercise Name shoulder extension Side bilateral Resistance L2 triceps extension Side bilateral Resistance L2 Reps/Minutes 2x10 Gait Training Gait Activity 1 Description SPC Comments smooth surface- 80 meters- pt fatigued PT-OP-T Assessment and Plan Start: 11/17/20 14:38 Freq: Status: Active Protocol: Document 11/28/20 11:00 AMB (Rec: 11/28/20 11:36 AMB [id number]) Physical Therapy Assessment Goals Two Impairment HEP Short Term Goal (STG) Hadley will be independent and consistent with a HEP for strengthening and stretching his LE and core. STG Duration 4 weeks One Impairment dizziness Short Term Goal (STG) Hadley will perform all bed mobility without dizziness. STG Duration 4 weeks Director [employer] Goal (LTG) Hadley will have no nystagmus or dizziness with [place]- hallpike or Brandon maneuver. LTG Duration 8 weeks 6 minute walk test Impairment unable to walk for 6 minutes without resting Short Term Goal (STG) Hadley will complete a 6 minute walk test with SPC over smooth surfaces. STG Duration 4 weeks [employer] Goal (LTG) Hadley will walk at least 700 feet in 6 minutes to walk half of what would be expected for his age/gender. LTG Duration 8 weeks Assessment Summary Assessment Did not reassess Ana-Hallpike today due to pt pain with maneuver. If spinning continues to be resolved then will be safe to assume BPPV resolved, but will reassess if spinning resumes. Overall pt fatigues very quickly. In comparison to previouslevel of function when in PT previously he is much more deconditioned and painful. 64cm - pt can stand without UE support from this height but not lower. Physical Therapy Plan Next Visit Focus/Plan Next Note Type Treatment Note Next Visit Plan Progress stretching, cardio, gait. Note pt cannot stand from a standard height chair.
--- NOTE | 2020-12-01 10:01 | PT.OTN ---
Current Diagnoses Benign paroxysmal vertigo, unspecified ear (12/01/20) Other myositis, unspecified site (12/01/20) Physical Therapy Treatment Note PT-OP-A Visit Information Start: 11/17/20 14:38 Freq: Status: Active Protocol: Document 12/01/20 08:56 MA (Rec: 12/01/20 09:49 MA [id number]) Out-Patient Physical Therapy Visit Information Visit Information Visit Type Treatment Note Visit Start Time 09:00 Visit Stop Time 09:43 Total Visit Minutes 43 Visit Number 4 Number of ASPHALT LAYER Visits 1 Precautions Precautions fall precautions on/off machines PT-OP-B Current Condition Start: 11/17/20 14:38 Freq: Status: Active Protocol: Document 11/21/20 09:01 AMB (Rec: 11/21/20 09:18 AMB [id number]) Current Condition History of Current Condition Onset Date One month ago Current Complaints dizziness getting out of bed/ chronic pain with myositis History of Current Condition Dizzy getting out of bed for the past month. Worst about a week ago. Rolling to the left is the worst. Looking down increases symptoms. Lasts 5-10 seconds. Does have myositis that makes mobility very challenging. 2007 high stress started myositis. Would like to work on stretching exercises. Walking currently is very limited- left knee is problematic with multiple arthroscopic surgeries, especially with stairs, lives in 2 story house . Treatment Goals Patient/Caregiver Goals Walk more/get rid of dizziness Prior Functional Status Baseline Function- ADL's Modified Independent Baseline Function- Mobility Modified Independent Personal Factors Other Personal Factors That May Effect myositis, dizziness, multiple Therapy/Recovery orthopedic issues, poor sensation in feet PT-OP-C Subjective Start: 11/17/20 14:38 Freq: Status: Active Protocol: Document 12/01/20 08:56 MA (Rec: 12/01/20 09:49 MA [id number]) OP-PT Subjective Patient Comments Patient Comments Pt reports his pain travels around due to myositis. PT-OP-E Functional Tests Start: 11/22/20 15:28 Freq: Status: Active Protocol: Document 11/28/20 11:36 AMB (Rec: 11/28/20 11:37 AMB [id number]) Functional Tests 10 Meter Walk Test Distance 10s Device Used SPC Five Times Sit to Stand Test Score 24 Comments from 64cm seat, no UEs PT-OP-G Mobility & Gait Start: 11/22/20 15:28 Freq: Status: Active Protocol: Document 11/21/20 09:00 AMB (Rec: 11/22/20 15:39 AMB [email or web address]) OP Gait Assessment Comments Gait Comments Ambulates with SPC, flat lumbar spine, WBOS, lack of trunk rotation, antalgic gait PT-OP-O Vestibular Start: 11/17/20 14:38 Freq: Status: Active Protocol: Document 11/21/20 09:00 AMB (Rec: 11/22/20 15:39 AMB [email or web address]) Vestibular Assessment Screening Tests Vestibular Artery Screen Negative Sharp-Prabhakar Test Negative Visual Testing Smooth Pursuits Horizontal WFL Smooth Pursuits Vertical WFL Saccades Horizontal WFL Saccades Vertical WFL Thrust Head Negative Positional Testing [place]-Hallpike Positive Left Comments Vestibular Comments Pt lightly symptomatic with ana-hallpike to the left, all sx were left sided and due to pt's pain and weakness did not perform other tests, but will reassess at next visit. PT-OP-Q Treatments Start: 11/17/20 14:38 Freq: Status: Active Protocol: Document 12/01/20 08:56 MA (Rec: 12/01/20 09:49 MA [id number]) Cardio Equipment Recumbent Elliptical ([employer]) Duration (Minutes) 5 Resistance 2 Therapeutic Exercises Sitting Exercises 1 Sitting Exercise Name sit to stand Reps/Minutes x10 Comments 64 cm surface no UEs Standing Exercises Rows Standing Exercise Name scap retraction Side bilateral Reps/Minutes 2x10 shoulder extension Standing Exercise Name shoulder extension Side bilateral Resistance L2 triceps extension Side bilateral Resistance L2 Reps/Minutes 2x10 Gait Training Gait Activity 1 Description SPC Distance/Duration 2x gym laps with break in between Comments smooth surface- 80 meters- pt fatigued Self-Care/Home Management Treatment Education Other Education Added rows, tricep ext, and shd ext to HEP PT-OP-T Assessment and Plan Start: 11/17/20 14:38 Freq: Status: Active Protocol: Document 12/01/20 08:56 MA (Rec: 12/01/20 09:49 MA [id number]) Physical Therapy Assessment Goals Two Impairment HEP Short Term Goal (STG) Hadley will be independent and consistent with a HEP for strengthening and stretching his LE and core. STG Duration 4 weeks One Impairment dizziness Short Term Goal (STG) Hadley will perform all bed mobility without dizziness. STG Duration 4 weeks Meter Inspector Goal (LTG) Hadley will have no nystagmus or dizziness with [place]- hallpike or Brandon maneuver. LTG Duration 8 weeks 6 minute walk test Impairment unable to walk for 6 minutes without resting Short Term Goal (STG) Hadley will complete a 6 minute walk test with SPC over smooth surfaces. STG Duration 4 weeks Snf Goal (LTG) Hadley will walk at least 700 feet in 6 minutes to walk half of what would be expected for his age/gender. LTG Duration 8 weeks Assessment Summary Assessment Pt requires frequent rest breaks throughout session. He is able to complete 2 laps of gym today with a 2 min rest break in between each lap. Added arm exercises to HEP; rows, shd ext, and tricep ext. pt needs cues for posture and core during arm exercises to avoid LBP. Will add leg exercises with TB next session . Discussed working on community ambulation on uneven surfaces next session per pt' s request. Pt will bring his walking sticks and PT will ensure a high chair is left outside for rest breaks due to pt unable to stand from standard height chair. Physical Therapy Plan Frequency and Duration Frequency of Treatment 2x/Week Duration of Treatment 8 weeks Plan of Care Start Date 11/21/20 Plan of Care End Date 01/16/21 Therapeutic Interventions Therapeutic Interventions Aquatic Therapy,Balance Training,Gait Training,Home Exercise Program,Manual Therapy,Neuromuscular Re- education,Self-Care/Home Management,Therapeutic Activities,Therapeutic Exercises Next Visit Focus/Plan Next Note Type Treatment Note Next Visit Plan Pt will bring walking sticks for gait on uneven surfaces outside next session. Bring high chair from [employer] outside for rest breaks. Add leg exercises like hip extension, marching, etc to HEP next session. Progress stretching, cardio, gait. Note pt cannot stand from a standard height chair.
--- NOTE | 2020-12-06 16:54 | PT.OTN ---
Current Diagnoses Benign paroxysmal vertigo, unspecified ear (12/06/20) Other myositis, unspecified site (12/06/20) Physical Therapy Treatment Note PT-OP-A Visit Information Start: 11/17/20 14:38 Freq: Status: Active Protocol: Document 12/06/20 16:09 MA (Rec: 12/06/20 16:54 MA [id number]) Out-Patient Physical Therapy Visit Information Visit Information Visit Type Treatment Note Visit Start Time 16:05 Visit Stop Time 16:43 Total Visit Minutes 38 Visit Number 5 Number of SLIDE MACHINE TENDER Visits 2 Precautions Precautions fall precautions on/off machines PT-OP-B Current Condition Start: 11/17/20 14:38 Freq: Status: Active Protocol: Document 11/21/20 09:01 AMB (Rec: 11/21/20 09:18 AMB [id number]) Current Condition History of Current Condition Onset Date One month ago Current Complaints dizziness getting out of bed/ chronic pain with myositis History of Current Condition Dizzy getting out of bed for the past month. Worst about a week ago. Rolling to the left is the worst. Looking down increases symptoms. Lasts 5-10 seconds. Does have myositis that makes mobility very challenging. 2007 high stress started myositis. Would like to work on stretching exercises. Walking currently is very limited- left knee is problematic with multiple arthroscopic surgeries, especially with stairs, lives in 2 story house . Treatment Goals Patient/Caregiver Goals Walk more/get rid of dizziness Prior Functional Status Baseline Function- ADL's Modified Independent Baseline Function- Mobility Modified Independent Personal Factors Other Personal Factors That May Effect myositis, dizziness, multiple Therapy/Recovery orthopedic issues, poor sensation in feet PT-OP-C Subjective Start: 11/17/20 14:38 Freq: Status: Active Protocol: Document 12/06/20 16:09 MA (Rec: 12/06/20 16:54 MA [id number]) OP-PT Subjective Patient Comments Patient Comments Pt states he has been really tired and nauseas today. He does not want to try walking outside because he doesn't think he can make it far PT-OP-E Functional Tests Start: 11/22/20 15:28 Freq: Status: Active Protocol: Document 11/28/20 11:36 AMB (Rec: 11/28/20 11:37 AMB [id number]) Functional Tests 10 Meter Walk Test Distance 10s Device Used SPC Five Times Sit to Stand Test Score 24 Comments from 64cm seat, no UEs PT-OP-G Mobility & Gait Start: 11/22/20 15:28 Freq: Status: Active Protocol: Document 11/21/20 09:00 AMB (Rec: 11/22/20 15:39 AMB [email or web address]) OP Gait Assessment Comments Gait Comments Ambulates with SPC, flat lumbar spine, WBOS, lack of trunk rotation, antalgic gait PT-OP-O Vestibular Start: 11/17/20 14:38 Freq: Status: Active Protocol: Document 11/21/20 09:00 AMB (Rec: 11/22/20 15:39 AMB [email or web address]) Vestibular Assessment Screening Tests Vestibular Artery Screen Negative Sharp-Prabhakar Test Negative Visual Testing Smooth Pursuits Horizontal WFL Smooth Pursuits Vertical WFL Saccades Horizontal WFL Saccades Vertical WFL Thrust Head Negative Positional Testing Ana-Hallpike Positive Left Comments Vestibular Comments Pt lightly symptomatic with ana-hallpike to the left, all sx were left sided and due to pt's pain and weakness did not perform other tests, but will reassess at next visit. PT-OP-Q Treatments Start: 11/17/20 14:38 Freq: Status: Active Protocol: Document 12/06/20 16:09 MA (Rec: 12/06/20 16:54 MA [id number]) Cardio Equipment Recumbent Elliptical ([employer]) Duration (Minutes) 5 Resistance 3 Seat Position 14 Therapeutic Exercises Supine Exercises Bridges Reps/Minutes 5x5 sec Stretches Supine Exercise Name Passive HS stretch, rashi stretch Side bilateral Reps/Minutes 2 min ea Standing Exercises Rows Standing Exercise Name scap retraction Side bilateral Reps/Minutes 2x10 shoulder extension Standing Exercise Name shoulder extension Side bilateral Resistance L2 triceps extension Side bilateral Resistance L2 Reps/Minutes 2x10 PT-OP-T Assessment and Plan Start: 11/17/20 14:38 Freq: Status: Active Protocol: Document 12/06/20 16:09 MA (Rec: 12/06/20 16:54 MA [id number]) Physical Therapy Assessment Goals Two Impairment HEP Short Term Goal (STG) Hadley will be independent and consistent with a HEP for strengthening and stretching his LE and core. STG Duration 4 weeks One Impairment dizziness Short Term Goal (STG) Hadley will perform all bed mobility without dizziness. STG Duration 4 weeks Nylon Hot Wire Cutter Goal (LTG) Hadley will have no nystagmus or dizziness with Ana- hallpike or Brandon maneuver. LTG Duration 8 weeks 6 minute walk test Impairment unable to walk for 6 minutes without resting Short Term Goal (STG) Hadley will complete a 6 minute walk test with SPC over smooth surfaces. STG Duration 4 weeks Nylon Hot Wire Cutter Goal (LTG) Hadley will walk at least 700 feet in 6 minutes to walk half of what would be expected for his age/gender. LTG Duration 8 weeks Assessment Summary Assessment Pt was having a bad day with his myositis today. He needed frequent, long rest breaks and struggled to complete single sets of exercises without gasping and c/o of pain. Stretched pt's HS and hip flexors passively with pt feeling some relief. Pt arrived with walking sticks but didn't feel he could complete outdoor ambulation training today. He will bring them again Friday but has been using them instead of the cane since last visit because he feels it helps with his back pain and stability. He sees a myositis specialist at the end of the month but is not willing to take any medication for the mm pains. Physical Therapy Plan Frequency and Duration Frequency of Treatment 2x/Week Duration of Treatment 8 weeks Plan of Care Start Date 11/21/20 Plan of Care End Date 01/16/21 Therapeutic Interventions Therapeutic Interventions Aquatic Therapy,Balance Training,Gait Training,Home Exercise Program,Manual Therapy,Neuromuscular Re- education,Self-Care/Home Management,Therapeutic Activities,Therapeutic Exercises Next Visit Focus/Plan Next Note Type Treatment Note Next Visit Plan Pt will bring walking sticks for gait on uneven surfaces outside next session. Bring high chair from lobby outside for rest breaks. Add leg exercises like hip extension, marching, etc to HEP next session. Progress stretching, cardio, gait. Note pt cannot stand from a standard height chair.
--- NOTE | 2020-12-08 12:09 | PT.OTN ---
Current Diagnoses Benign paroxysmal vertigo, unspecified ear (12/08/20) Other myositis, unspecified site (12/08/20) Physical Therapy Treatment Note PT-OP-A Visit Information Start: 11/17/20 14:38 Freq: Status: Active Protocol: Document 12/08/20 11:24 MA (Rec: 12/08/20 12:08 MA [id number]) Out-Patient Physical Therapy Visit Information Visit Information Visit Type Treatment Note Visit Start Time 11:15 Visit Stop Time 11:55 Total Visit Minutes 40 Visit Number 6 Number of PLANER HAND Visits 3 Precautions Precautions fall precautions on/off machines PT-OP-B Current Condition Start: 11/17/20 14:38 Freq: Status: Active Protocol: Document 11/21/20 09:01 AMB (Rec: 11/21/20 09:18 AMB [id number]) Current Condition History of Current Condition Onset Date One month ago Current Complaints dizziness getting out of bed/ chronic pain with myositis History of Current Condition Dizzy getting out of bed for the past month. Worst about a week ago. Rolling to the left is the worst. Looking down increases symptoms. Lasts 5-10 seconds. Does have myositis that makes mobility very challenging. 2007 high stress started myositis. Would like to work on stretching exercises. Walking currently is very limited- left knee is problematic with multiple arthroscopic surgeries, especially with stairs, lives in 2 story house . Treatment Goals Patient/Caregiver Goals Walk more/get rid of dizziness Prior Functional Status Baseline Function- ADL's Modified Independent Baseline Function- Mobility Modified Independent Personal Factors Other Personal Factors That May Effect myositis, dizziness, multiple Therapy/Recovery orthopedic issues, poor sensation in feet PT-OP-C Subjective Start: 11/17/20 14:38 Freq: Status: Active Protocol: Document 12/08/20 11:24 MA (Rec: 12/08/20 12:08 MA [id number]) OP-PT Subjective Patient Comments Patient Comments Yesterday was a really, really bad day. I had tears streaming down my face when I woke up because I was in so much pain. My flexability has improved a bit thought and I was able to put on my own shoes. Pt sees rheumatoid dr on Friday. PT-OP-E Functional Tests Start: 11/22/20 15:28 Freq: Status: Active Protocol: Document 11/28/20 11:36 AMB (Rec: 11/28/20 11:37 AMB [id number]) Functional Tests 10 Meter Walk Test Distance 10s Device Used SPC Five Times Sit to Stand Test Score 24 Comments from 64cm seat, no UEs PT-OP-G Mobility & Gait Start: 11/22/20 15:28 Freq: Status: Active Protocol: Document 11/21/20 09:00 AMB (Rec: 11/22/20 15:39 AMB [email or web address]) OP Gait Assessment Comments Gait Comments Ambulates with SPC, flat lumbar spine, WBOS, lack of trunk rotation, antalgic gait PT-OP-O Vestibular Start: 11/17/20 14:38 Freq: Status: Active Protocol: Document 11/21/20 09:00 AMB (Rec: 11/22/20 15:39 AMB [email or web address]) Vestibular Assessment Screening Tests Vestibular Artery Screen Negative Sharp-Prabhakar Test Negative Visual Testing Smooth Pursuits Horizontal WFL Smooth Pursuits Vertical WFL Saccades Horizontal WFL Saccades Vertical WFL Thrust Head Negative Positional Testing Ana-Hallpike Positive Left Comments Vestibular Comments Pt lightly symptomatic with ana-hallpike to the left, all sx were left sided and due to pt's pain and weakness did not perform other tests, but will reassess at next visit. PT-OP-Q Treatments Start: 11/17/20 14:38 Freq: Status: Active Protocol: Document 12/08/20 11:24 MA (Rec: 12/08/20 12:08 MA [id number]) Cardio Equipment Recumbent Elliptical ([email or web address]) Duration (Minutes) 6 Resistance 3 Seat Position 14 Therapeutic Exercises Supine Exercises Bridges Reps/Minutes 5x5 sec 2x Standing Exercises hip extension Side bilateral Equipment Used // bars Reps/Minutes 2x10 Manual Therapy Treatment Soft Tissue Mobilization Biceps Body Location R bicep Mobilization Type Rolling,Sustained Pressure, Trigger Point Release Intensity/Depth Moderate Body Position Supine Comments mod-deep pressure Self-Care/Home Management Treatment Education Other Education Discussed logging in a journal what pt does daily and if he has good/bad days what seems to be the common theme. PT-OP-T Assessment and Plan Start: 11/17/20 14:38 Freq: Status: Active Protocol: Document 12/08/20 11:24 MA (Rec: 12/08/20 12:08 MA [id number]) Physical Therapy Assessment Goals Two Impairment HEP Short Term Goal (STG) Hadley will be independent and consistent with a HEP for strengthening and stretching his LE and core. STG Duration 4 weeks One Impairment dizziness Short Term Goal (STG) Hadley will perform all bed mobility without dizziness. STG Duration 4 weeks Flat Lock Machine Operator Goal (LTG) Hadley will have no nystagmus or dizziness with Ana- hallpike or Brandon maneuver. LTG Duration 8 weeks 6 minute walk test Impairment unable to walk for 6 minutes without resting Short Term Goal (STG) Hadley will complete a 6 minute walk test with SPC over smooth surfaces. STG Duration 4 weeks Jail Goal (LTG) Hadley will walk at least 700 feet in 6 minutes to walk half of what would be expected for his age/gender. LTG Duration 8 weeks Assessment Summary Assessment Pt is having a better day today but still felt he needed to take it easier due to amount of pain he was in . Pt was bale to do 6 min of cardio today vs usual 5 . He could perform standing hip ext with moderate cues on R to avoid trunk flexion. Added hip ext to HEP. Discussed using a journal and tracking good/bad days of myositis. Physical Therapy Plan Frequency and Duration Frequency of Treatment 2x/Week Duration of Treatment 8 weeks Plan of Care Start Date 11/21/20 Plan of Care End Date 01/16/21 Therapeutic Interventions Therapeutic Interventions Aquatic Therapy,Balance Training,Gait Training,Home Exercise Program,Manual Therapy,Neuromuscular Re- education,Self-Care/Home Management,Therapeutic Activities,Therapeutic Exercises Next Visit Focus/Plan Next Note Type Treatment Note Next Visit Plan Pt will bring walking sticks for gait on uneven surfaces outside next session. Bring high chair from [employer] outside for rest breaks. Add leg exercises like hip extension, marching, etc to HEP next session. Progress stretching, cardio, gait. Note pt cannot stand from a standard height chair.
--- NOTE | 2020-12-11 14:39 | PT.OTN ---
Current Diagnoses Benign paroxysmal vertigo, unspecified ear (12/11/20) Other myositis, unspecified site (12/11/20) Physical Therapy Treatment Note PT-OP-A Visit Information Start: 11/17/20 14:38 Freq: Status: Active Protocol: Document 12/11/20 11:15 AMB (Rec: 12/11/20 11:45 AMB [id number]) Out-Patient Physical Therapy Visit Information Visit Information Visit Type Treatment Note Visit Start Time 11:15 Visit Stop Time 11:55 Total Visit Minutes 40 Visit Number 7 Number of INSTRUCTOR ADJUNCT SURGICAL TECHNICIAN Visits 0 PT-OP-B Current Condition Start: 11/17/20 14:38 Freq: Status: Active Protocol: Document 11/21/20 09:01 AMB (Rec: 11/21/20 09:18 AMB [id number]) Current Condition History of Current Condition Onset Date One month ago Current Complaints dizziness getting out of bed/ chronic pain with myositis History of Current Condition Dizzy getting out of bed for the past month. Worst about a week ago. Rolling to the left is the worst. Looking down increases symptoms. Lasts 5-10 seconds. Does have myositis that makes mobility very challenging. 2007 high stress started myositis. Would like to work on stretching exercises. Walking currently is very limited- left knee is problematic with multiple arthroscopic surgeries, especially with stairs, lives in 2 story house . Treatment Goals Patient/Caregiver Goals Walk more/get rid of dizziness Prior Functional Status Baseline Function- ADL's Modified Independent Baseline Function- Mobility Modified Independent Personal Factors Other Personal Factors That May Effect myositis, dizziness, multiple Therapy/Recovery orthopedic issues, poor sensation in feet PT-OP-C Subjective Start: 11/17/20 14:38 Freq: Status: Active Protocol: Document 12/11/20 11:15 AMB (Rec: 12/11/20 11:45 AMB [id number]) OP-PT Subjective Patient Comments Patient Comments Pain has been worse, PT-OP-E Functional Tests Start: 11/22/20 15:28 Freq: Status: Active Protocol: Document 11/28/20 11:36 AMB (Rec: 11/28/20 11:37 AMB [id number]) Functional Tests 10 Meter Walk Test Distance 10s Device Used SPC Five Times Sit to Stand Test Score 24 Comments from 64cm seat, no UEs PT-OP-G Mobility & Gait Start: 11/22/20 15:28 Freq: Status: Active Protocol: Document 11/21/20 09:00 AMB (Rec: 11/22/20 15:39 AMB [email or web address]) OP Gait Assessment Comments Gait Comments Ambulates with SPC, flat lumbar spine, WBOS, lack of trunk rotation, antalgic gait PT-OP-O Vestibular Start: 11/17/20 14:38 Freq: Status: Active Protocol: Document 11/21/20 09:00 AMB (Rec: 11/22/20 15:39 AMB [email or web address]) Vestibular Assessment Screening Tests Vestibular Artery Screen Negative Sharp-Prabhakar Test Negative Visual Testing Smooth Pursuits Horizontal WFL Smooth Pursuits Vertical WFL Saccades Horizontal WFL Saccades Vertical WFL Thrust Head Negative Positional Testing [place]-Hallpike Positive Left Comments Vestibular Comments Pt lightly symptomatic with ana-hallpike to the left, all sx were left sided and due to pt's pain and weakness did not perform other tests, but will reassess at next visit. PT-OP-Q Treatments Start: 11/17/20 14:38 Freq: Status: Active Protocol: Document 12/11/20 11:15 AMB (Rec: 12/11/20 11:45 AMB [id number]) Cardio Equipment Recumbent Elliptical (POS on CLOUD) Duration (Minutes) 6 Resistance 1 Seat Position 14 Therapeutic Exercises Supine Exercises serratus punch Supine Exercise Name R difficult, L easy Side bilateral Resistance 2# Reps/Minutes 2x10 Bridges Reps/Minutes 5x5 sec 2x Stretches Supine Exercise Name Passive HS stretch, rashi stretch, passive shoulder flexion Side bilateral Reps/Minutes 2 min ea Sitting Exercises 1 Sitting Exercise Name sit to stand Reps/Minutes 2x5 Comments 64 cm surface no UEs PT-OP-T Assessment and Plan Start: 11/17/20 14:38 Freq: Status: Active Protocol: Document 12/11/20 11:15 AMB (Rec: 12/11/20 11:45 AMB [id number]) Physical Therapy Assessment Assessment Summary Assessment Pt continues to have pain flare that limits his gait in therapy. Reduced resistance with recubent stepper to see if that helps with L knee pain . Physical Therapy Plan Next Visit Focus/Plan Next Visit Plan Held uneven gait due to pt increased pain.
--- NOTE | 2020-12-15 09:38 | PT.OTN ---
Current Diagnoses Benign paroxysmal vertigo, unspecified ear (12/15/20) Other myositis, unspecified site (12/15/20) Physical Therapy Treatment Note PT-OP-A Visit Information Start: 11/17/20 14:38 Freq: Status: Active Protocol: Document 12/15/20 09:00 AMB (Rec: 12/15/20 09:38 AMB [id number]) Out-Patient Physical Therapy Visit Information Visit Information Visit Type Treatment Note Visit Start Time 09:00 Visit Stop Time 09:45 Total Visit Minutes 45 Visit Number 8 PT-OP-B Current Condition Start: 11/17/20 14:38 Freq: Status: Active Protocol: Document 11/21/20 09:01 AMB (Rec: 11/21/20 09:18 AMB [id number]) Current Condition History of Current Condition Onset Date One month ago Current Complaints dizziness getting out of bed/ chronic pain with myositis History of Current Condition Dizzy getting out of bed for the past month. Worst about a week ago. Rolling to the left is the worst. Looking down increases symptoms. Lasts 5-10 seconds. Does have myositis that makes mobility very challenging. 2007 high stress started myositis. Would like to work on stretching exercises. Walking currently is very limited- left knee is problematic with multiple arthroscopic surgeries, especially with stairs, lives in 2 story house . Treatment Goals Patient/Caregiver Goals Walk more/get rid of dizziness Prior Functional Status Baseline Function- ADL's Modified Independent Baseline Function- Mobility Modified Independent Personal Factors Other Personal Factors That May Effect myositis, dizziness, multiple Therapy/Recovery orthopedic issues, poor sensation in feet PT-OP-C Subjective Start: 11/17/20 14:38 Freq: Status: Active Protocol: Document 12/15/20 09:00 AMB (Rec: 12/15/20 09:38 AMB [id number]) OP-PT Subjective Patient Comments Patient Comments Pt has had more pain with low back and would like to d/c bridges PT-OP-E Functional Tests Start: 11/22/20 15:28 Freq: Status: Active Protocol: Document 11/28/20 11:36 AMB (Rec: 11/28/20 11:37 AMB [id number]) Functional Tests 10 Meter Walk Test Distance 10s Device Used SPC Five Times Sit to Stand Test Score 24 Comments from 64cm seat, no UEs PT-OP-G Mobility & Gait Start: 11/22/20 15:28 Freq: Status: Active Protocol: Document 11/21/20 09:00 AMB (Rec: 11/22/20 15:39 AMB [email or web address]) OP Gait Assessment Comments Gait Comments Ambulates with SPC, flat lumbar spine, WBOS, lack of trunk rotation, antalgic gait PT-OP-O Vestibular Start: 11/17/20 14:38 Freq: Status: Active Protocol: Document 11/21/20 09:00 AMB (Rec: 11/22/20 15:39 AMB [email or web address]) Vestibular Assessment Screening Tests Vestibular Artery Screen Negative Sharp-Prabhakar Test Negative Visual Testing Smooth Pursuits Horizontal WFL Smooth Pursuits Vertical WFL Saccades Horizontal WFL Saccades Vertical WFL Thrust Head Negative Positional Testing [place]-Hallpike Positive Left Comments Vestibular Comments Pt lightly symptomatic with ana-hallpike to the left, all sx were left sided and due to pt's pain and weakness did not perform other tests, but will reassess at next visit. PT-OP-Q Treatments Start: 11/17/20 14:38 Freq: Status: Active Protocol: Document 12/15/20 09:00 AMB (Rec: 12/15/20 09:38 AMB [id number]) Cardio Equipment Recumbent Stepper ([employer]) Duration (Minutes) 7 Resistance 1.0 Gym Equipment Shuttle Recovery Unilateral Squats Shuttle Recovery Platform Stable Bilateral Squats Resistance 75# Shuttle Recovery Platform Stable Reps/Time 2x15 Therapeutic Exercises Supine Exercises Stretches Supine Exercise Name Passive HS stretch, rashi stretch, passive shoulder flexion Side bilateral Reps/Minutes 2 min ea Gait Training Gait Activity 1 Description SPC Distance/Duration 2x gym laps with break in between Comments smooth surface- 80 meters- pt fatigued Neuro Re-Education Treatment Vestibular Rehabilitation VOR Retraining Distance From Target arm length Reps/Duration 3 min PT-OP-T Assessment and Plan Start: 11/17/20 14:38 Freq: Status: Active Protocol: Document 12/15/20 09:00 AMB (Rec: 12/15/20 09:38 AMB [id number]) Physical Therapy Assessment Assessment Summary Assessment Back pain continues to limit exercise/gait. Pt tolerated VOR exercises well for continued mild off balance with head turns. Physical Therapy Plan Next Visit Focus/Plan Next Note Type Treatment Note Next Visit Plan Holding uneven gait and bridges due to pain today.
--- NOTE | 2020-12-28 11:54 | PT.OTN ---
Current Diagnoses Benign paroxysmal vertigo, unspecified ear (12/28/20) Other myositis, unspecified site (12/28/20) Physical Therapy Treatment Note PT-OP-A Visit Information Start: 11/17/20 14:38 Freq: Status: Active Protocol: Document 12/28/20 11:00 AMB (Rec: 12/28/20 11:35 AMB [id number]) Out-Patient Physical Therapy Visit Information Visit Information Visit Type Treatment Note Visit Start Time 11:00 Visit Stop Time 11:45 Total Visit Minutes 45 Visit Number 9 PT-OP-B Current Condition Start: 11/17/20 14:38 Freq: Status: Active Protocol: Document 11/21/20 09:01 AMB (Rec: 11/21/20 09:18 AMB [id number]) Current Condition History of Current Condition Onset Date One month ago Current Complaints dizziness getting out of bed/ chronic pain with myositis History of Current Condition Dizzy getting out of bed for the past month. Worst about a week ago. Rolling to the left is the worst. Looking down increases symptoms. Lasts 5-10 seconds. Does have myositis that makes mobility very challenging. 2007 high stress started myositis. Would like to work on stretching exercises. Walking currently is very limited- left knee is problematic with multiple arthroscopic surgeries, especially with stairs, lives in 2 story house . Treatment Goals Patient/Caregiver Goals Walk more/get rid of dizziness Prior Functional Status Baseline Function- ADL's Modified Independent Baseline Function- Mobility Modified Independent Personal Factors Other Personal Factors That May Effect myositis, dizziness, multiple Therapy/Recovery orthopedic issues, poor sensation in feet PT-OP-C Subjective Start: 11/17/20 14:38 Freq: Status: Active Protocol: Document 12/28/20 11:00 AMB (Rec: 12/28/20 11:35 AMB [id number]) OP-PT Subjective Patient Comments Patient Comments Pt reports continued to have back and left knee pain. PT-OP-E Functional Tests Start: 11/22/20 15:28 Freq: Status: Active Protocol: Document 11/28/20 11:36 AMB (Rec: 11/28/20 11:37 AMB [id number]) Functional Tests 10 Meter Walk Test Distance 10s Device Used SPC Five Times Sit to Stand Test Score 24 Comments from 64cm seat, no UEs PT-OP-G Mobility & Gait Start: 11/22/20 15:28 Freq: Status: Active Protocol: Document 11/21/20 09:00 AMB (Rec: 11/22/20 15:39 AMB [email or web address]) OP Gait Assessment Comments Gait Comments Ambulates with SPC, flat lumbar spine, WBOS, lack of trunk rotation, antalgic gait PT-OP-O Vestibular Start: 11/17/20 14:38 Freq: Status: Active Protocol: Document 11/21/20 09:00 AMB (Rec: 11/22/20 15:39 AMB [email or web address]) Vestibular Assessment Screening Tests Vestibular Artery Screen Negative Sharp-Prabhakar Test Negative Visual Testing Smooth Pursuits Horizontal WFL Smooth Pursuits Vertical WFL Saccades Horizontal WFL Saccades Vertical WFL Thrust Head Negative Positional Testing [place]-Hallpike Positive Left Comments Vestibular Comments Pt lightly symptomatic with vandana-hallpike to the left, all sx were left sided and due to pt's pain and weakness did not perform other tests, but will reassess at next visit. PT-OP-Q Treatments Start: 11/17/20 14:38 Freq: Status: Active Protocol: Document 12/28/20 11:00 AMB (Rec: 12/28/20 11:35 AMB [id number]) Therapeutic Exercises Sitting Exercises 1 Sitting Exercise Name sit to stand Reps/Minutes 2x5 Comments 61 cm surface no UEs Standing Exercises shoulder extension Standing Exercise Name shoulder extension Side bilateral Resistance L3 triceps extension Side bilateral Resistance L3 Reps/Minutes 2x10 Gait Training Gait Activity 1 Description walking sticks Distance/Duration 2x gym laps without break Comments smooth surface- 80 meters- pt fatigued PT-OP-T Assessment and Plan Start: 11/17/20 14:38 Freq: Status: Active Protocol: Document 12/28/20 11:00 AMB (Rec: 12/28/20 11:35 AMB [id number]) Physical Therapy Assessment Assessment Summary Assessment Pt had to crawl up stairs at home because he tried to get on the floor. Educated pt to avoid floor transfers if at all possible. Pt did tolerate sit to stand from lower surface and more gait today, but progress is slow. Physical Therapy Plan Next Visit Focus/Plan Next Note Type Progress Note Next Visit Plan Discontinue bridges per pt request
--- NOTE | 2021-01-03 11:12 | PT.OTN ---
Current Diagnoses Benign paroxysmal vertigo, unspecified ear (01/03/21) Other myositis, unspecified site (01/03/21) Physical Therapy Treatment Note PT-OP-A Visit Information Start: 11/17/20 14:38 Freq: Status: Active Protocol: Document 01/03/21 10:15 AMB (Rec: 01/03/21 10:58 AMB [id number]) Out-Patient Physical Therapy Visit Information Visit Information Visit Type Progress Note Visit Start Time 10:15 Visit Stop Time 11:00 Total Visit Minutes 45 Visit Number 10 PT-OP-B Current Condition Start: 11/17/20 14:38 Freq: Status: Active Protocol: Document 11/21/20 09:01 AMB (Rec: 11/21/20 09:18 AMB [id number]) Current Condition History of Current Condition Onset Date One month ago Current Complaints dizziness getting out of bed/ chronic pain with myositis History of Current Condition Dizzy getting out of bed for the past month. Worst about a week ago. Rolling to the left is the worst. Looking down increases symptoms. Lasts 5-10 seconds. Does have myositis that makes mobility very challenging. 2007 high stress started myositis. Would like to work on stretching exercises. Walking currently is very limited- left knee is problematic with multiple arthroscopic surgeries, especially with stairs, lives in 2 story house . Treatment Goals Patient/Caregiver Goals Walk more/get rid of dizziness Prior Functional Status Baseline Function- ADL's Modified Independent Baseline Function- Mobility Modified Independent Personal Factors Other Personal Factors That May Effect myositis, dizziness, multiple Therapy/Recovery orthopedic issues, poor sensation in feet PT-OP-C Subjective Start: 11/17/20 14:38 Freq: Status: Active Protocol: Document 01/03/21 10:15 AMB (Rec: 01/03/21 10:58 AMB [id number]) OP-PT Subjective Patient Comments Patient Comments Pt reports he has been sleeping poorly the last couple nights. 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 PT-OP-E Functional Tests Start: 11/22/20 15:28 Freq: Status: Active Protocol: Document 11/28/20 11:36 AMB (Rec: 11/28/20 11:37 AMB [id number]) Functional Tests 10 Meter Walk Test Distance 10s Device Used SPC Five Times Sit to Stand Test Score 24 Comments from 64cm seat, no UEs PT-OP-G Mobility & Gait Start: 11/22/20 15:28 Freq: Status: Active Protocol: Document 11/21/20 09:00 AMB (Rec: 11/22/20 15:39 AMB [email or web address]) OP Gait Assessment Comments Gait Comments Ambulates with SPC, flat lumbar spine, WBOS, lack of trunk rotation, antalgic gait PT-OP-O Vestibular Start: 11/17/20 14:38 Freq: Status: Active Protocol: Document 11/21/20 09:00 AMB (Rec: 11/22/20 15:39 AMB [email or web address]) Vestibular Assessment Screening Tests Vestibular Artery Screen Negative Sharp-Prabhakar Test Negative Visual Testing Smooth Pursuits Horizontal WFL Smooth Pursuits Vertical WFL Saccades Horizontal WFL Saccades Vertical WFL Thrust Head Negative Positional Testing Ana-Hallpike Positive Left Comments Vestibular Comments Pt lightly symptomatic with ana-hallpike to the left, all sx were left sided and due to pt's pain and weakness did not perform other tests, but will reassess at next visit. PT-OP-Q Treatments Start: 11/17/20 14:38 Freq: Status: Active Protocol: Document 01/03/21 10:15 AMB (Rec: 01/03/21 10:58 AMB [id number]) Therapeutic Exercises Sitting Exercises 1 Sitting Exercise Name sit to stand Reps/Minutes 2x5 Comments 60 cm surface no UEs Standing Exercises shoulder ER Standing Exercise Name #3 t band Reps/Minutes 2x10 triceps extension Side bilateral Resistance L3 Reps/Minutes 2x10 Gait Training Gait Activity stairs Device Used railing Level of Assistance SBA Distance/Duration 3 stairs Treatment Focus x3 1 Description walking sticks Distance/Duration 1x gym laps without break Comments smooth surface- 80 meters- pt fatigued PT-OP-T Assessment and Plan Start: 11/17/20 14:38 Freq: Status: Active Protocol: Document 01/03/21 10:15 AMB (Rec: 01/03/21 10:58 AMB [id number]) Physical Therapy Assessment Goals Two Impairment HEP Short Term Goal (STG) Hadley will be independent and consistent with a HEP for strengthening and stretching his LE and core. STG Duration 4 weeks One Impairment dizziness Short Term Goal (STG) Hadley will perform all bed mobility without dizziness. STG Duration MET Snf Goal (LTG) Hadley will have no nystagmus or dizziness with Ana- hallpike or Brandon maneuver. LTG Duration MET 6 minute walk test Impairment unable to walk for 6 minutes without resting Short Term Goal (STG) Hadley will complete a 6 minute walk test with SPC over smooth surfaces. STG Duration 4 weeks Snf Goal (LTG) Hadley will walk at least 700 feet in 6 minutes to walk half of what would be expected for his age/gender. LTG Duration 8 weeks Assessment Summary Assessment Pt is slowly progressing with his sit to stand, but has been very disheartened by the weakness that he is dealing with. BPPV is better. Pt is hoping to progress his gait, but progress is slow. Physical Therapy Plan Next Visit Focus/Plan Next Note Type Treatment Note Next Visit Plan Continue progress strengthening.
--- NOTE | 2021-01-05 14:58 | PT.OTN ---
Current Diagnoses Benign paroxysmal vertigo, unspecified ear (01/05/21) Other myositis, unspecified site (01/05/21) Physical Therapy Treatment Note PT-OP-A Visit Information Start: 11/17/20 14:38 Freq: Status: Active Protocol: Document 01/05/21 10:15 AMB (Rec: 01/05/21 10:48 AMB [id number]) Out-Patient Physical Therapy Visit Information Visit Information Visit Type Treatment Note Visit Start Time 10:15 Visit Stop Time 11:00 Total Visit Minutes 45 Visit Number 11 PT-OP-B Current Condition Start: 11/17/20 14:38 Freq: Status: Active Protocol: Document 11/21/20 09:01 AMB (Rec: 11/21/20 09:18 AMB [id number]) Current Condition History of Current Condition Onset Date One month ago Current Complaints dizziness getting out of bed/ chronic pain with myositis History of Current Condition Dizzy getting out of bed for the past month. Worst about a week ago. Rolling to the left is the worst. Looking down increases symptoms. Lasts 5-10 seconds. Does have myositis that makes mobility very challenging. 2007 high stress started myositis. Would like to work on stretching exercises. Walking currently is very limited- left knee is problematic with multiple arthroscopic surgeries, especially with stairs, lives in 2 story house . Treatment Goals Patient/Caregiver Goals Walk more/get rid of dizziness Prior Functional Status Baseline Function- ADL's Modified Independent Baseline Function- Mobility Modified Independent Personal Factors Other Personal Factors That May Effect myositis, dizziness, multiple Therapy/Recovery orthopedic issues, poor sensation in feet PT-OP-C Subjective Start: 11/17/20 14:38 Freq: Status: Active Protocol: Document 01/05/21 10:15 AMB (Rec: 01/05/21 10:48 AMB [id number]) OP-PT Subjective Patient Comments Patient Comments Pt reports his upper arms have been pretty sore. PT-OP-E Functional Tests Start: 11/22/20 15:28 Freq: Status: Active Protocol: Document 11/28/20 11:36 AMB (Rec: 11/28/20 11:37 AMB [id number]) Functional Tests 10 Meter Walk Test Distance 10s Device Used SPC Five Times Sit to Stand Test Score 24 Comments from 64cm seat, no UEs PT-OP-G Mobility & Gait Start: 11/22/20 15:28 Freq: Status: Active Protocol: Document 11/21/20 09:00 AMB (Rec: 11/22/20 15:39 AMB [email or web address]) OP Gait Assessment Comments Gait Comments Ambulates with SPC, flat lumbar spine, WBOS, lack of trunk rotation, antalgic gait PT-OP-O Vestibular Start: 11/17/20 14:38 Freq: Status: Active Protocol: Document 11/21/20 09:00 AMB (Rec: 11/22/20 15:39 AMB [email or web address]) Vestibular Assessment Screening Tests Vestibular Artery Screen Negative Sharp-Prabhakar Test Negative Visual Testing Smooth Pursuits Horizontal WFL Smooth Pursuits Vertical WFL Saccades Horizontal WFL Saccades Vertical WFL Thrust Head Negative Positional Testing [place]-Hallpike Positive Left Comments Vestibular Comments Pt lightly symptomatic with ana-hallpike to the left, all sx were left sided and due to pt's pain and weakness did not perform other tests, but will reassess at next visit. PT-OP-Q Treatments Start: 11/17/20 14:38 Freq: Status: Active Protocol: Document 01/05/21 10:15 AMB (Rec: 01/05/21 11:01 AMB [id number]) Therapeutic Exercises Sitting Exercises 2 Sitting Exercise Name LAQ Side bilateral Resistance #2 ankle weights Reps/Minutes 2x10 1 Sitting Exercise Name sit to stand Reps/Minutes 2x5 Comments 60 cm surface no UEs Standing Exercises shoulder ER Standing Exercise Name #3 t band Reps/Minutes 2x10 Rows Standing Exercise Name scap retraction Side bilateral Resistance #3 t band Reps/Minutes 2x10 Gait Training Gait Activity 1 Description walking sticks Distance/Duration 2x gym laps without break Comments smooth surface- 80 meters- pt fatigued PT-OP-T Assessment and Plan Start: 11/17/20 14:38 Freq: Status: Active Protocol: Document 01/05/21 10:15 AMB (Rec: 01/05/21 10:48 AMB [id number]) Physical Therapy Assessment Assessment Summary Assessment Pt is tolerating some strengthening, but pain continues to limit his progress. Physical Therapy Plan Next Visit Focus/Plan Next Note Type Treatment Note Next Visit Plan Continue LE/UE strengthening, gait training, HEP progression for stretching.
--- NOTE | 2021-01-12 13:12 | PT.OTN ---
Current Diagnoses Benign paroxysmal vertigo, unspecified ear (01/12/21) Other myositis, unspecified site (01/12/21) Physical Therapy Treatment Note PT-OP-A Visit Information Start: 11/17/20 14:38 Freq: Status: Active Protocol: Document 01/12/21 11:23 MA (Rec: 01/12/21 11:57 MA [id number]) Out-Patient Physical Therapy Visit Information Visit Information Visit Type Treatment Note Visit Start Time 11:15 Visit Stop Time 11:55 Total Visit Minutes 40 Visit Number 12 Number of COUNT TEAM CLERK Visits 1 Precautions Precautions fall precautions on/off machines PT-OP-B Current Condition Start: 11/17/20 14:38 Freq: Status: Active Protocol: Document 11/21/20 09:01 AMB (Rec: 11/21/20 09:18 AMB [id number]) Current Condition History of Current Condition Onset Date One month ago Current Complaints dizziness getting out of bed/ chronic pain with myositis History of Current Condition Dizzy getting out of bed for the past month. Worst about a week ago. Rolling to the left is the worst. Looking down increases symptoms. Lasts 5-10 seconds. Does have myositis that makes mobility very challenging. 2007 high stress started myositis. Would like to work on stretching exercises. Walking currently is very limited- left knee is problematic with multiple arthroscopic surgeries, especially with stairs, lives in 2 story house . Treatment Goals Patient/Caregiver Goals Walk more/get rid of dizziness Prior Functional Status Baseline Function- ADL's Modified Independent Baseline Function- Mobility Modified Independent Personal Factors Other Personal Factors That May Effect myositis, dizziness, multiple Therapy/Recovery orthopedic issues, poor sensation in feet PT-OP-C Subjective Start: 11/17/20 14:38 Freq: Status: Active Protocol: Document 01/12/21 11:23 MA (Rec: 01/12/21 11:57 MA [id number]) OP-PT Subjective Patient Comments Patient Comments Pt's RUE has been very sore. He requests [facility] PT-OP-E Functional Tests Start: 11/22/20 15:28 Freq: Status: Active Protocol: Document 11/28/20 11:36 AMB (Rec: 11/28/20 11:37 AMB [id number]) Functional Tests 10 Meter Walk Test Distance 10s Device Used SPC Five Times Sit to Stand Test Score 24 Comments from 64cm seat, no UEs PT-OP-G Mobility & Gait Start: 11/22/20 15:28 Freq: Status: Active Protocol: Document 11/21/20 09:00 AMB (Rec: 11/22/20 15:39 AMB [id number]) OP Gait Assessment Comments Gait Comments Ambulates with SPC, flat lumbar spine, WBOS, lack of trunk rotation, antalgic gait PT-OP-O Vestibular Start: 11/17/20 14:38 Freq: Status: Active Protocol: Document 11/21/20 09:00 AMB (Rec: 11/22/20 15:39 AMB [email or web address]) Vestibular Assessment Screening Tests Vestibular Artery Screen Negative Sharp-Prabhakar Test Negative Visual Testing Smooth Pursuits Horizontal WFL Smooth Pursuits Vertical WFL Saccades Horizontal WFL Saccades Vertical WFL Thrust Head Negative Positional Testing Ana-Hallpike Positive Left Comments Vestibular Comments Pt lightly symptomatic with ana-hallpike to the left, all sx were left sided and due to pt's pain and weakness did not perform other tests, but will reassess at next visit. PT-OP-Q Treatments Start: 11/17/20 14:38 Freq: Status: Active Protocol: Document 01/12/21 11:23 MA (Rec: 01/12/21 11:57 MA [id number]) Therapeutic Exercises Sitting Exercises 2 Sitting Exercise Name LAQ Side bilateral Resistance #2 ankle weights Reps/Minutes 2x10 1 Sitting Exercise Name sit to stand Reps/Minutes x10 Comments 60 cm surface no UEs Standing Exercises Mini Lunges Standing Exercise Name mini lunge holding coutner top Side bilateral Equipment Used counter top Reps/Minutes 6x ea Comments pt having L inferior knee pain Gait Training Gait Activity stairs Device Used R railing Level of Assistance SBA Distance/Duration 3 stairs Treatment Focus x3 1 Description walking sticks Distance/Duration 2x gym laps without break Comments smooth surface- 80 meters- pt fatigued Manual Therapy Treatment Soft Tissue Mobilization Biceps Body Location R bicep Mobilization Type Rolling,Sustained Pressure, Trigger Point Release Intensity/Depth Moderate Body Position Supine Comments mod-deep pressure PT-OP-T Assessment and Plan Start: 11/17/20 14:38 Freq: Status: Active Protocol: Document 01/12/21 11:23 MA (Rec: 01/12/21 11:57 MA [id number]) Physical Therapy Assessment Goals Two Impairment HEP Short Term Goal (STG) Hadley will be independent and consistent with a HEP for strengthening and stretching his LE and core. STG Duration 4 weeks One Impairment dizziness Short Term Goal (STG) Hadley will perform all bed mobility without dizziness. STG Duration MET [employer] Goal (LTG) Hadley will have no nystagmus or dizziness with [place]- hallpike or Brandon maneuver. LTG Duration MET 6 minute walk test Impairment unable to walk for 6 minutes without resting Short Term Goal (STG) Hadley will complete a 6 minute walk test with SPC over smooth surfaces. STG Duration 4 weeks Half-Way Goal (LTG) Hadley will walk at least 700 feet in 6 minutes to walk half of what would be expected for his age/gender. LTG Duration 8 weeks Assessment Summary Assessment Charles is able to complete 2 laps of gym totaling ~400 ft without c/o pain or SOB. Focused session on stair training attempting stepping with R hand on R rail and L hand using walking stick vs twisting torso and pulling on R rail with both hands to ascend/descend. Pt shows good form using walking stick but feels more unstable and worries about LLEs giving out. Pt has L knee pain when performing mini lunges at countertop. Discussed possibly working on floor transfers overtime as pt gets stronger using UEs to push up off two stable objects. Physical Therapy Plan Frequency and Duration Frequency of Treatment 2x/Week Duration of Treatment 8 weeks Plan of Care Start Date 11/21/20 Plan of Care End Date 01/16/21 Therapeutic Interventions Therapeutic Interventions Aquatic Therapy,Balance Training,Gait Training,Home Exercise Program,Manual Therapy,Neuromuscular Re- education,Self-Care/Home Management,Therapeutic Activities,Therapeutic Exercises Next Visit Focus/Plan Next Note Type Treatment Note Next Visit Plan Continue LE/UE strengthening, gait training, HEP progression for stretching.
--- NOTE | 2021-01-24 15:22 | PT.OTN ---
Current Diagnoses Benign paroxysmal vertigo, unspecified ear (01/24/21) Other myositis, unspecified site (01/24/21) Physical Therapy Treatment Note PT-OP-A Visit Information Start: 11/17/20 14:38 Freq: Status: Active Protocol: Document 01/24/21 12:45 AMB (Rec: 01/24/21 13:01 AMB [id number]) Out-Patient Physical Therapy Visit Information Visit Information Visit Type Progress Note Visit Start Time 12:45 Visit Stop Time 13:30 Total Visit Minutes 45 Visit Number 13 PT-OP-B Current Condition Start: 11/17/20 14:38 Freq: Status: Active Protocol: Document 11/21/20 09:01 AMB (Rec: 11/21/20 09:18 AMB [id number]) Current Condition History of Current Condition Onset Date One month ago Current Complaints dizziness getting out of bed/ chronic pain with myositis History of Current Condition Dizzy getting out of bed for the past month. Worst about a week ago. Rolling to the left is the worst. Looking down increases symptoms. Lasts 5-10 seconds. Does have myositis that makes mobility very challenging. 2007 high stress started myositis. Would like to work on stretching exercises. Walking currently is very limited- left knee is problematic with multiple arthroscopic surgeries, especially with stairs, lives in 2 story house . 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 PT-OP-E Functional Tests Start: 11/22/20 15:28 Freq: Status: Active Protocol: Document 01/24/21 12:45 AMB (Rec: 01/24/21 13:10 AMB [id number]) Functional Tests 2 Minute Walk Test Distance 320 Device Used walking 10 Meter Walk Test Distance 8 Device Used SPC Five Times Sit to Stand Test Score 16 Comments from 64cm, no UE PT-OP-G Mobility & Gait Start: 11/22/20 15:28 Freq: Status: Active Protocol: Document 11/21/20 09:00 AMB (Rec: 11/22/20 15:39 AMB [id number]) OP Gait Assessment Comments Gait Comments Ambulates with SPC, flat lumbar spine, WBOS, lack of trunk rotation, antalgic gait PT-OP-O Vestibular Start: 11/17/20 14:38 Freq: Status: Active Protocol: Document 11/21/20 09:00 AMB (Rec: 11/22/20 15:39 AMB [id number]) Vestibular Assessment Screening Tests Vestibular Artery Screen Negative Sharp-Prabhakar Test Negative Visual Testing Smooth Pursuits Horizontal WFL Smooth Pursuits Vertical WFL Saccades Horizontal WFL Saccades Vertical WFL Thrust Head Negative Positional Testing [place]-Hallpike Positive Left Comments Vestibular Comments Pt lightly symptomatic with ana-hallpike to the left, all sx were left sided and due to pt's pain and weakness did not perform other tests, but will reassess at next visit. PT-OP-Q Treatments Start: 11/17/20 14:38 Freq: Status: Active Protocol: Document 01/24/21 12:45 AMB (Rec: 01/24/21 13:20 AMB [id number]) Therapeutic Exercises Supine Exercises Stretches Supine Exercise Name Passive HS stretch, rashi stretch, passive shoulder flexion Side bilateral Reps/Minutes 2 min ea Standing Exercises hip extension Side bilateral Equipment Used // bars Reps/Minutes 2x10 shoulder extension Standing Exercise Name shoulder extension Side bilateral Resistance L3 triceps extension Side bilateral Resistance L3 Reps/Minutes 2x10 Gait Training Gait Activity 1 Description walking sticks Distance/Duration 2x gym laps without break Comments smooth surface- 80 meters- pt fatigued PT-OP-T Assessment and Plan Start: 11/17/20 14:38 Freq: Status: Active Protocol: Document 01/24/21 12:45 AMB (Rec: 01/24/21 13:20 AMB [id number]) Physical Therapy Assessment Goals Two Impairment HEP Short Term Goal (STG) Hadley will be independent and consistent with a HEP for strengthening and stretching his LE and core. STG Duration 4 weeks One Impairment dizziness Short Term Goal (STG) Hadley will perform all bed mobility without dizziness. STG Duration MET Detective Chief Goal (LTG) Hadley will have no nystagmus or dizziness with Ana- hallpike or Brandon maneuver. LTG Duration MET 6 minute walk test Impairment unable to walk for 6 minutes without resting Short Term Goal (STG) Hadley will complete a 6 minute walk test with SPC over smooth surfaces. PROGRESS MADE: 2 minute walk test completed. STG Duration 4 weeks Correction Goal (LTG) Hadley will walk at least 700 feet in 6 minutes to walk half of what would be expected for his age/gender. 01/24: 320 feet in 2 minutes. LTG Duration 8 weeks Assessment Summary Assessment Charles had increased SOB with 2 minute walk test today, but has shown good improvement in his 5x sit to stand and 10 meter walk test. He is depressed about his arthritis and does not want to medicate his myositis and is not interested in joint replacement. His neuropathy continues to limit his balance . Overall he has progressed in PT (cutting down his 5x sit to stand by almost half) but he does not really see the progress. Extensive patient education/ counseling in regards to his pain and mobility today. Physical Therapy Plan Frequency and Duration Frequency of Treatment 2x/Week Duration of Treatment 8 weeks Plan of Care Start Date 01/24/21 Plan of Care End Date 03/21/21 Therapeutic Interventions Therapeutic Interventions Aquatic Therapy,Balance Training,Gait Training,Home Exercise Program,Manual Therapy,Neuromuscular Re- education,Self-Care/Home Management,Therapeutic Activities,Therapeutic Exercises Next Visit Focus/Plan Next Note Type Treatment Note Next Visit Plan Continue LE/UE strengthening, gait training, HEP progression for stretching.
--- NOTE | 2021-01-24 15:23 | PT.OPPOC ---
Physical, Occupational & Speech Therapy At [facility] Current Diagnoses Benign paroxysmal vertigo, unspecified ear (01/24/21) Other myositis, unspecified site (01/24/21) Visit Care Team Role Provider Type Yunior Atkinson MD Attending Provider Physician Family Provider Primary Care Provider Referring Provider Specialty: Internal Medicine Address: [address] [place] [address], [address], [address] Email: [email or web address] Plan Of Care PT-OP-T Assessment and Plan Start: 11/17/20 14:38 Freq: Status: Active Protocol: Document 01/24/21 12:45 AMB (Rec: 01/24/21 13:20 AMB [id number]) Physical Therapy Assessment Goals Two Impairment HEP Short Term Goal (STG) Hadley will be independent and consistent with a HEP for strengthening and stretching his LE and core. STG Duration 4 weeks One Impairment dizziness Short Term Goal (STG) Hadley will perform all bed mobility without dizziness. STG Duration MET Snf Goal (LTG) Hadley will have no nystagmus or dizziness with [place]- hallpike or Brandon maneuver. LTG Duration MET 6 minute walk test Impairment unable to walk for 6 minutes without resting Short Term Goal (STG) Hadley will complete a 6 minute walk test with SPC over smooth surfaces. PROGRESS MADE: 2 minute walk test completed. STG Duration 4 weeks Cloth Shrinking Machine Operator Helper Goal (LTG) Hadley will walk at least 700 feet in 6 minutes to walk half of what would be expected for his age/gender. 01/24: 320 feet in 2 minutes. LTG Duration 8 weeks Assessment Summary Assessment Charles had increased SOB with 2 minute walk test today, but has shown good improvement in his 5x sit to stand and 10 meter walk test. He is depressed about his arthritis and does not want to medicate his myositis and is not interested in joint replacement. His neuropathy continues to limit his balance . Overall he has progressed in PT (cutting down his 5x sit to stand by almost half) but he does not really see the progress. Extensive patient education/ counseling in regards to his pain and mobility today. Physical Therapy Plan Frequency and Duration Frequency of Treatment 2x/Week Duration of Treatment 8 weeks Plan of Care Start Date 01/24/21 Plan of Care End Date 03/21/21 Therapeutic Interventions Therapeutic Interventions Aquatic Therapy,Balance Training,Gait Training,Home Exercise Program,Manual Therapy,Neuromuscular Re- education,Self-Care/Home Management,Therapeutic Activities,Therapeutic Exercises Next Visit Focus/Plan Next Note Type Treatment Note Next Visit Plan Continue LE/UE strengthening, gait training, HEP progression for stretching. Plan of Care Dates Plan of Care Start Date 01/24/21 Plan of Care End Date 03/21/21 Electronically Signed by: Marta Garay, PT 01/24/21 1787 Please Sign and Return: I have reviewed this Plan of Care and certify that the skilled therapy services above are required to meet the patient?s needs. Physician Signature Date Printed Name and Credentials Clinical Instructor Signature Printed Name and Credentials
--- NOTE | 2021-01-26 15:28 | PT.OTN ---
Current Diagnoses Benign paroxysmal vertigo, unspecified ear (01/26/21) Other myositis, unspecified site (01/26/21) Physical Therapy Treatment Note PT-OP-A Visit Information Start: 11/17/20 14:38 Freq: Status: Active Protocol: Document 01/26/21 13:30 AMB (Rec: 01/26/21 14:09 AMB [id number]) Out-Patient Physical Therapy Visit Information Visit Information Visit Type Treatment Note Visit Start Time 13:30 Visit Stop Time 14:15 Total Visit Minutes 45 Visit Number 14 PT-OP-B Current Condition Start: 11/17/20 14:38 Freq: Status: Active Protocol: Document 11/21/20 09:01 AMB (Rec: 11/21/20 09:18 AMB [id number]) Current Condition History of Current Condition Onset Date One month ago Current Complaints dizziness getting out of bed/ chronic pain with myositis History of Current Condition Dizzy getting out of bed for the past month. Worst about a week ago. Rolling to the left is the worst. Looking down increases symptoms. Lasts 5-10 seconds. Does have myositis that makes mobility very challenging. 2007 high stress started myositis. Would like to work on stretching exercises. Walking currently is very limited- left knee is problematic with multiple arthroscopic surgeries, especially with stairs, lives in 2 story house . Treatment Goals Patient/Caregiver Goals Walk more/get rid of dizziness Prior Functional Status Baseline Function- ADL's Modified Independent Baseline Function- Mobility Modified Independent Personal Factors Other Personal Factors That May Effect myositis, dizziness, multiple Therapy/Recovery orthopedic issues, poor sensation in feet PT-OP-C Subjective Start: 11/17/20 14:38 Freq: Status: Active Protocol: Document 01/26/21 13:30 AMB (Rec: 01/26/21 14:09 AMB [id number]) OP-PT Subjective Patient Comments Patient Comments Pt reports increased pain in his shoulders and knees today. PT-OP-E Functional Tests Start: 11/22/20 15:28 Freq: Status: Active Protocol: Document 01/24/21 12:45 AMB (Rec: 01/24/21 13:10 AMB [id number]) Functional Tests 2 Minute Walk Test Distance 320 Device Used walking 10 Meter Walk Test Distance 8 Device Used SPC Five Times Sit to Stand Test Score 16 Comments from 64cm, no UE PT-OP-G Mobility & Gait Start: 11/22/20 15:28 Freq: Status: Active Protocol: Document 11/21/20 09:00 AMB (Rec: 11/22/20 15:39 AMB [id number]) OP Gait Assessment Comments Gait Comments Ambulates with SPC, flat lumbar spine, WBOS, lack of trunk rotation, antalgic gait PT-OP-O Vestibular Start: 11/17/20 14:38 Freq: Status: Active Protocol: Document 11/21/20 09:00 AMB (Rec: 11/22/20 15:39 AMB [id number]) Vestibular Assessment Screening Tests Vestibular Artery Screen Negative Sharp-Prabhakar Test Negative Visual Testing Smooth Pursuits Horizontal WFL Smooth Pursuits Vertical WFL Saccades Horizontal WFL Saccades Vertical WFL Thrust Head Negative Positional Testing [place]-Hallpike Positive Left Comments Vestibular Comments Pt lightly symptomatic with ana-hallpike to the left, all sx were left sided and due to pt's pain and weakness did not perform other tests, but will reassess at next visit. PT-OP-Q Treatments Start: 11/17/20 14:38 Freq: Status: Active Protocol: Document 01/26/21 13:30 AMB (Rec: 01/26/21 14:09 AMB [id number]) Therapeutic Exercises Sitting Exercises 1 Sitting Exercise Name sit to stand Reps/Minutes x10 Comments 60 cm surface no UEs Standing Exercises Rows Standing Exercise Name scap retraction Side bilateral Resistance #3 t band Reps/Minutes 2x10 Gait Training Gait Activity 1 Description walking sticks Distance/Duration 2x gym laps without break Comments smooth surface- 80 meters- pt fatigued PT-OP-T Assessment and Plan Start: 11/17/20 14:38 Freq: Status: Active Protocol: Document 01/26/21 13:30 AMB (Rec: 01/26/21 14:09 AMB [id number]) Physical Therapy Assessment Goals Two Impairment HEP Short Term Goal (STG) Hadley will be independent and consistent with a HEP for strengthening and stretching his LE and core. STG Duration 4 weeks One Impairment dizziness Short Term Goal (STG) Hadley will perform all bed mobility without dizziness. STG Duration MET [facility] Goal (LTG) Hadley will have no nystagmus or dizziness with [place]- hallpike or Brandon maneuver. LTG Duration MET 6 minute walk test Impairment unable to walk for 6 minutes without resting Short Term Goal (STG) Hadley will complete a 6 minute walk test with SPC over smooth surfaces. PROGRESS MADE: 2 minute walk test completed. STG Duration 4 weeks Manufacturing Associate Goal (LTG) Hadley will walk at least 700 feet in 6 minutes to walk half of what would be expected for his age/gender. 01/24: 320 feet in 2 minutes. LTG Duration 8 weeks Assessment Summary Assessment Charles continued to need continued education re the role of exercise and pain control. He does state thate he sees improvement since starting PT, but continues to have pain. Reminded him of his stated goals of improved walking. Physical Therapy Plan Next Visit Focus/Plan Next Note Type Treatment Note Next Visit Plan Continue LE/UE strengthening, gait training, HEP progression for stretching.
--- NOTE | 2021-02-05 15:19 | PT.OPDS ---
Current Diagnoses Benign paroxysmal vertigo, unspecified ear (01/26/21) Other myositis, unspecified site (01/26/21) Visit Care Team Role Provider Type Yunior Atkinson MD Attending Provider Physician Family Provider Primary Care Provider Referring Provider Specialty: Internal Medicine Address: [address] [place] [address], [address], [address] Email: [email or web address] Visit Number Visit Number 14 Discharge Summary PT-OP-B Current Condition Start: 11/17/20 14:38 Freq: Status: Active Protocol: Document 11/21/20 09:01 AMB (Rec: 11/21/20 09:18 AMB [id number]) Current Condition History of Current Condition Onset Date One month ago Current Complaints dizziness getting out of bed/ chronic pain with myositis History of Current Condition Dizzy getting out of bed for the past month. Worst about a week ago. Rolling to the left is the worst. Looking down increases symptoms. Lasts 5-10 seconds. Does have myositis that makes mobility very challenging. 2007 high stress started myositis. Would like to work on stretching exercises. Walking currently is very limited- left knee is problematic with multiple arthroscopic surgeries, especially with stairs, lives in 2 story house . Treatment Goals Patient/Caregiver Goals Walk more/get rid of dizziness Prior Functional Status Baseline Function- ADL's Modified Independent Baseline Function- Mobility Modified Independent Personal Factors Other Personal Factors That May Effect myositis, dizziness, multiple Therapy/Recovery orthopedic issues, poor sensation in feet PT-OP-C Subjective Start: 11/17/20 14:38 Freq: Status: Active Protocol: Document 01/26/21 13:30 AMB (Rec: 01/26/21 14:09 AMB [id number]) OP-PT Subjective Patient Comments Patient Comments Pt reports increased pain in his shoulders and knees today. PT-OP-E Functional Tests Start: 11/22/20 15:28 Freq: Status: Active Protocol: Document 01/24/21 12:45 AMB (Rec: 01/24/21 13:10 AMB [id number]) Functional Tests 2 Minute Walk Test Distance 320 Device Used walking 10 Meter Walk Test Distance 8 Device Used SPC Five Times Sit to Stand Test Score 16 Comments from 64cm, no UE PT-OP-G Mobility & Gait Start: 11/22/20 15:28 Freq: Status: Active Protocol: Document 11/21/20 09:00 AMB (Rec: 11/22/20 15:39 AMB [email or web address]) OP Gait Assessment Comments Gait Comments Ambulates with SPC, flat lumbar spine, WBOS, lack of trunk rotation, antalgic gait PT-OP-O Vestibular Start: 11/17/20 14:38 Freq: Status: Active Protocol: Document 11/21/20 09:00 AMB (Rec: 11/22/20 15:39 AMB [email or web address]) Vestibular Assessment Screening Tests Vestibular Artery Screen Negative Sharp-Prabhakar Test Negative Visual Testing Smooth Pursuits Horizontal WFL Smooth Pursuits Vertical WFL Saccades Horizontal WFL Saccades Vertical WFL Thrust Head Negative Positional Testing Ana-Hallpike Positive Left Comments Vestibular Comments Pt lightly symptomatic with ana-hallpike to the left, all sx were left sided and due to pt's pain and weakness did not perform other tests, but will reassess at next visit. PT-OP-T Assessment and Plan Start: 11/17/20 14:38 Freq: Status: Active Protocol: Document 02/05/21 15:17 AMB (Rec: 02/05/21 15:19 AMB [email or web address]) Physical Therapy Assessment Assessment Summary Assessment Pt's called in and reported pt had an FL and needs to be discharged from PT . He had been seen for 14 visits, but had not yet met his goals. Physical Therapy Plan Discharge Physical Therapy Discharge Reasons Change in Medical Status
== END 2021-02-06 07:56 | disposition home or self-care (01) ==
LOC: PHYS 13:30
PROVIDERS: Family Provider Student in an Organized Health Care Education/Training Program; PCP Student in an Organized Health Care Education/Training Program; Referring Provider Student in an Organized Health Care Education/Training Program; Visit Provider Student in an Organized Health Care Education/Training Program
DX: H81.10 Benign paroxysmal vertigo, unspecified ear (principal); M60.80 Other myositis, unspecified site
CPT/HCPCS: 95992; 97110; 97112; 97116; 97140; 97162

== ENCOUNTER 2021-01-29 05:58 | Emergency (ER) | payer MEDICARE, OTHER, SELFPAY ==
[2021-01-29] VITALS (36 sets, daily range): BP systolic 131–193; BP diastolic 57–102; PULSE 61–110; RESP 12–43; TEMP 36.6; O2SAT 92–96; BMI 39.9
--- NOTE | 2021-01-29 06:20 | DI.RAD.S_ITS ---
PROCEDURE: XR CHEST 1V INDICATIONS: chest pain TECHNIQUE: One view of the chest was acquired. COMPARISON: None. FINDINGS: Surgical changes and devices: None. Lungs and pleura: Lungs are clear. No pleural effusions or pneumothorax. Mediastinum: Mediastinal contours appear normal. Heart size is normal. Bones and chest wall: No suspicious bony lesions. Overlying soft tissues appear unremarkable. IMPRESSION: No acute cardiopulmonary abnormality. This report is concordant with the overnight preliminary interpretation. Dictated by: Balta Galvan M.D. on 01/29/2021 at 7:56 Approved by: Balta Galvan M.D. on 01/29/2021 at 7:59
[2021-01-29 06:27] LABS: Add Manual Diff / Slide Review NO; Basophils Absolute Auto 100 /uL (0-100); Basophils Percent Auto 0.6 % (0-2); Eosinophils Absolute Auto 300 /uL (0-450); Eosinophils Percent Auto 2.6 % (2-4); Hematocrit 46.1 % (41-53); Hemoglobin 15.4 g/dL (13.5-17.5); Lymphocytes Absolute Auto 2600 /uL (1100-4500); Lymphocytes Percent Auto 25.4 % (25-40); Mean Corpuscular HGB Conc 33.4 % (30-36); Mean Corpuscular Hemoglobin 33.5 PG (26-34); Mean Corpuscular Volume 100.1 fL (80-100); Monocytes Absolute Auto 1600 /uL (0-900); Monocytes Percent Auto 15.5 % (3-14); Neutrophils Absolute Auto 5700 /uL (1500-7000); Neutrophils Percent Auto 55.9 % (50-75); Platelet Count 191 X10^3/uL (150-400); White Blood Cell Count 10.2 X10^3/uL (4.5-11.0)
[2021-01-29 06:32] LABS: Alanine Aminotransferase 69 IU/L (<50); Albumin 4.2 g/dL (3.5-5.0); Albumin Globulin Ratio 1.1 (1.0-2.8); Alkaline Phosphatase 69 U/L (38-126); Aspartate Aminotransferase 66 IU/L (17-59); BUN Creatinine Ratio 32.1 (6-22); Bilirubin Total 0.6 mg/dL (0.2-1.3); Blood Urea Nitrogen 27 mg/dL (9-20); Calcium 9.9 mg/dL (8.4-10.2); Carbon Dioxide 27 mmol/L (22-32); Chloride 107 mmol/L (98-107); Creatine Kinase 783 U/L (55-170); Estimated Glomerular Filt Rate > 60.0 mL/min (>60); Globulin 3.9 g/dL (1.7-4.1); Glucose 131 mg/dL (80-110); Lipase 91 U/L (23-300); Potassium 4.6 mmol/L (3.4-5.1); Sodium 142 mmol/L (137-145); Total Protein 8.1 g/dL (6.3-8.2)
[2021-01-29 06:47] LABS: CKMB % Relative Index 2.5 % (1.5-5.0)
--- NOTE | 2021-01-29 06:50 | PC.NURSE ---
Pt describes his pain as radiating from his chest to his abd and up to his R shoulder. MD informed. No changes in medications
[2021-01-29 06:59] LABS: NT-proBNP (BNP-Adult 18+) 213 pg/mL (<450)
[2021-01-29] MEDS: HEPARIN DRIP 25,000 UNIT/500 ML IV.SOLN 20 UNIT IV (06:59)
[2021-01-29] MEDS: NITROGLYCERIN 50 MG/250 ML INFUS..BTL IV (07:00)
[2021-01-29] MEDS: HEPARIN 5,000 UNIT/ML VIAL 5000 UNIT IV (07:02)
[2021-01-29 07:05] LABS: HEMOLYSIS 20 (0-50); PTT Partial Thromboplastin Tim 38 SECONDS (26.4-36.2)
[2021-01-29 07:11] LABS: Troponin I 0.644 ng/mL (0.01-0.034)
--- NOTE | 2021-01-29 07:15 | ED_ITS ---
HPI - Chest Pain <Nata Palma - Last Filed: 01/30/21 12:46> General Chief Complaint: Chest Pain Stated Complaint: Chest Pain Time Seen by Provider: 01/29/21 06:24 Source: patient and EMS Mode of arrival: EMS Limitations: no limitations History of Present Illness HPI narrative: This is a 76-year-old male with known cardiac stents placed in 2010. Patient has a history of myositis as well as osteoarthritis, gout, hypertension and takes naltrexone prescribed for his nature path for his myositis. Patient takes an aspirin 81 mg daily. Patient has woken up twice this week with substernal chest pain that radiates to his shoulder. Most recently this morning but had an episode last night at 9:00 p.m. as well. Patient had aspirin 324 mg and nitro sublingual with EMS which helped but not totally resolved. He denies shortness of breath. He denies diaphoresis. He has had a little nausea. He denies any vomiting. Patient denies any swelling his extremities. No abdominal, back or flank pain. Patient does not follow regularly with a check out clerk. His primary care Dr. Atkinson. 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 Related Data Home Medications Medication Instructions Recorded Confirmed acetaminophen 325 mg tablet 1 dose PO PRN PRN 08/12/18 11/15/20 aspirin 81 mg tablet,delayed 81 mg PO DAILY 08/12/18 11/15/20 release turmeric 1 tab PO DAILY 08/12/18 11/15/20 vit C 250 mg-vit E 90 mg-zinc 40 1 cap PO BID 08/12/18 11/15/20 mg-copper 1 [id number] capsule (PreserVision AREDS-2) Resmed Airsense 10 CPAP #1 ea 04/29/19 11/15/20 vit C 250 mg-vit E 200 unit-zinc 1 tab PO BID 10/04/20 11/15/20 12.5 mg-copper 1 [id number] tablet (ICaps AREDS2 (copper citrate)) Previous Rx's Medication Instructions Recorded losartan 100 mg tablet 100 mg PO DAILY #90 tab 12/22/20 allopurinol 300 mg tablet 300 mg PO DAILY #90 tab 07/27/20 amlodipine 5 mg tablet 5 mg PO DAILY #90 tab 08/02/20 Allergies Allergy/AdvReac Type Severity Reaction Status Date / Time oxycodone [From Percocet] Allergy Intermediate Nausea Verified 11/15/20 11:23 [id number] Reductase AdvReac Severe Autoimmune Verified 11/15/20 11:23 Inhibitor myositis codeine AdvReac Mild Redness of Verified 11/15/20 11:23 Skin Review of Systems <Nata Palma DO - Last Filed: 01/30/21 12:46> Review of Systems ROS Unobtainable: All systems reviewed & are unremarkable except as noted in HPI and below Patient History <Nata Palma DO - Last Filed: 01/30/21 12:46> Medical History Coronary artery disease Hyperlipidemia Hypertension Kidney stones Surgical History H/O lithotripsy Hx of appendectomy Social History Smoking Status: Former smoker Smoking Status: Former smoker alcohol intake frequency: a few times a week Substance Use Type: does not use Exam <Nata Palma DO - Last Filed: 01/30/21 12:46> Narrative Exam Narrative: GENERAL: Alert and oriented x three, male in mild distress. HEENT: Head normocephalic, atraumatic, EOMI, pupils reactive, face symmetric, moist mucous membranes NECK: Supple, full range of motion CARDIOVASCULAR: Regular rate and rhythm without murmurs, rubs or gallops. Non reproducible chest pain. RESPIRATORY: Breath sounds equal bilaterally, no wheezes rales or rhonchi. ABDOMEN: Soft, nontender. Normoactive bowel sounds all 4 quadrants. No guarding or rebound, rigidity, no mass : No CVA tenderness EXTREMITIES: Normal range of motion, no edema. Neurovascularly intact NEUROLOGICAL: Cranial nerves II through XII grossly intact. Moving all extremities SKIN: Warm, dry, no petechiae, no rashes or lesions. Initial Vital Signs Initial Vital Signs: Vital Signs Temperature 98 F 01/29/21 06:00 Pulse Rate 63 01/29/21 06:00 Respiratory Rate 18 01/29/21 06:00 Blood Pressure 141/83 H 01/29/21 06:00 Pulse Oximetry 94 01/29/21 06:00 <Spike Renee DO - Last Filed: 01/29/21 17:18> Initial Vital Signs Initial Vital Signs: Vital Signs Temperature 98 F 01/29/21 06:00 Pulse Rate 63 01/29/21 06:00 Respiratory Rate 18 01/29/21 06:00 Blood Pressure 141/83 H 01/29/21 06:00 Pulse Oximetry 94 01/29/21 06:00 Course <Nata Palma DO - Last Filed: 01/30/21 12:46> Orders Ordered: Discontinued Medications Acetaminophen (Acetaminophen 325 Mg Tablet) 650 mg PO NOW ONE Stop: 01/29/21 08:29 Last Admin: 01/29/21 08:39 Dose: 650 mg Documented by: MAIKEL Heparin Sodium (Porcine) (Heparin 5,000 Unit/Ml Vial) 5,000 unit IV NOW ONE Stop: 01/29/21 06:51 Last Admin: 01/29/21 07:02 Dose: 5,000 unit Documented by: IRISH Nitroglycerin (Nitroglycerin) 50 mg in 250 mls @ 1.5 mls/hr IV TITRATE RAFIQ; Protocol Last Titration: 01/29/21 17:42 Dose: 5 mcg/min, 1.5 mls/hr Documented by: Admin: 01/29/21 07:00 Dose: 5 mcg/min, 1.5 mls/hr Documented by: IRISH Heparin Sodium/Dextrose (Heparin Drip) 25,000 unit in 500 mls @ 20 mls/hr IV CONT RAFIQ; Protocol Last Titration: 01/29/21 17:41 Dose: 950 units/hr, 19 mls/hr Documented by: Titration: 01/29/21 10:20 Dose: 950 units/hr, 19 mls/hr Documented by: Admin: 01/29/21 06:59 Dose: 1,000 units/hr, 20 mls/hr Documented by: IRISH Nitroglycerin (Nitroglycerin Oint 1 Inch/Gm Oint...G.) 1 inch TOP NOW ONE Stop: 01/29/21 06:38 Last Admin: 01/29/21 06:51 Dose: Not Given Documented by: IRISH Vital Signs Vital signs: Vital Signs - 8 hr 01/29/21 09:30 01/29/21 09:32 01/29/21 10:00 Temperature Pulse Rate 72 77 71 Respiratory Rate 28 H 18 14 Blood Pressure 148/87 H Pulse Oximetry 92 94 94 01/29/21 10:30 01/29/21 11:00 01/29/21 11:28 Temperature Pulse Rate 72 72 76 Respiratory Rate 21 23 16 Blood Pressure 149/80 H Pulse Oximetry 94 93 93 01/29/21 11:30 01/29/21 12:00 01/29/21 12:31 Temperature Pulse Rate 77 78 80 Respiratory Rate 23 23 43 H Blood Pressure 145/78 H 164/85 H Pulse Oximetry 95 92 95 01/29/21 12:33 01/29/21 13:00 01/29/21 13:30 Temperature Pulse Rate 74 73 74 Respiratory Rate 22 21 19 Blood Pressure 153/86 H 162/98 H 168/93 H Pulse Oximetry 94 93 94 01/29/21 13:53 01/29/21 14:00 01/29/21 14:01 Temperature 97.8 F Pulse Rate 73 74 Respiratory Rate 23 24 Blood Pressure 162/87 H Pulse Oximetry 92 92 01/29/21 14:30 01/29/21 14:38 01/29/21 15:00 Temperature Pulse Rate 75 71 76 Respiratory Rate 20 16 16 Blood Pressure 179/98 H 193/98 H Pulse Oximetry 96 96 96 01/29/21 15:30 01/29/21 16:00 Temperature Pulse Rate 76 76 Respiratory Rate 21 23 Blood Pressure 177/100 H 177/87 H Pulse Oximetry 94 96 <Spike Renee, DO - Last Filed: 01/29/21 17:18> Orders Ordered: Discontinued Medications Acetaminophen (Acetaminophen 325 Mg Tablet) 650 mg PO NOW ONE Stop: 01/29/21 08:29 Last Admin: 01/29/21 08:39 Dose: 650 mg Documented by: MAIKEL Heparin Sodium (Porcine) (Heparin 5,000 Unit/Ml Vial) 5,000 unit IV NOW ONE Stop: 01/29/21 06:51 Last Admin: 01/29/21 07:02 Dose: 5,000 unit Documented by: IRISH Nitroglycerin (Nitroglycerin) 50 mg in 250 mls @ 1.5 mls/hr IV TITRATE RAFIQ; Protocol Last Titration: 01/29/21 17:42 Dose: 5 mcg/min, 1.5 mls/hr Documented by: Admin: 01/29/21 07:00 Dose: 5 mcg/min, 1.5 mls/hr Documented by: IRISH Heparin Sodium/Dextrose (Heparin Drip) 25,000 unit in 500 mls @ 20 mls/hr IV CONT RAFIQ; Protocol Last Titration: 01/29/21 17:41 Dose: 950 units/hr, 19 mls/hr Documented by: Titration: 01/29/21 10:20 Dose: 950 units/hr, 19 mls/hr Documented by: Admin: 01/29/21 06:59 Dose: 1,000 units/hr, 20 mls/hr Documented by: IRISH Nitroglycerin (Nitroglycerin Oint 1 Inch/Gm Oint...G.) 1 inch TOP NOW ONE Stop: 01/29/21 06:38 Last Admin: 01/29/21 06:51 Dose: Not Given Documented by: IRISH Vital Signs Vital signs: Vital Signs - 8 hr 01/29/21 09:30 01/29/21 09:32 01/29/21 10:00 Temperature Pulse Rate 72 77 71 Respiratory Rate 28 H 18 14 Blood Pressure 148/87 H Pulse Oximetry 92 94 94 01/29/21 10:30 01/29/21 11:00 01/29/21 11:28 Temperature Pulse Rate 72 72 76 Respiratory Rate 21 23 16 Blood Pressure 149/80 H Pulse Oximetry 94 93 93 01/29/21 11:30 01/29/21 12:00 01/29/21 12:31 Temperature Pulse Rate 77 78 80 Respiratory Rate 23 23 43 H Blood Pressure 145/78 H 164/85 H Pulse Oximetry 95 92 95 01/29/21 12:33 01/29/21 13:00 01/29/21 13:30 Temperature Pulse Rate 74 73 74 Respiratory Rate 22 21 19 Blood Pressure 153/86 H 162/98 H 168/93 H Pulse Oximetry 94 93 94 01/29/21 13:53 01/29/21 14:00 01/29/21 14:01 Temperature 97.8 F Pulse Rate 73 74 Respiratory Rate 23 24 Blood Pressure 162/87 H Pulse Oximetry 92 92 01/29/21 14:30 01/29/21 14:38 01/29/21 15:00 Temperature Pulse Rate 75 71 76 Respiratory Rate 20 16 16 Blood Pressure 179/98 H 193/98 H Pulse Oximetry 96 96 96 01/29/21 15:30 01/29/21 16:00 Temperature Pulse Rate 76 76 Respiratory Rate 21 23 Blood Pressure 177/100 H 177/87 H Pulse Oximetry 94 96 MDM - Chest Pain <Nata Palma, - Last Filed: 01/30/21 12:46> Lab Data Result diagrams: 01/29/21 06:00 01/29/21 06:00 Labs: Lab Results 01/29/21 01/29/21 01/29/21 Range/Units 06:00 06:00 06:00 WBC 10.2 (4.5-11.0) X10^3/uL RBC 4.60 (4.5-5.9) X10^6/uL Hgb 15.4 (13.5-17.5) g/dL Hct 46.1 (41-53) % MCV 100.1 H (80-100) fL MCH 33.5 (26-34) PG MCHC 33.4 (30-36) % RDW 14.0 (11.6-14.8) % Plt Count 191 (150-400) X10^3/uL Neut % (Auto) 55.9 (50-75) % Lymph % (Auto) 25.4 (25-40) % [place] % (Auto) 15.5 H (3-14) % Eos % (Auto) 2.6 (2-4) % Baso % (Auto) 0.6 (0-2) % Neut # (Auto) 5700 (3894-5114) /uL Lymph # (Auto) 2600 (1245-3730) /uL [place] # (Auto) 1600 H (0-900) /uL Eos # (Auto) 300 (0-450) /uL Baso # (Auto) 100 (0-100) /uL APTT (26.4-36.2) SECONDS Sodium 142 (137-145) mmol/L Potassium 4.6 (3.4-5.1) mmol/L Chloride 107 (98-107) mmol/L Carbon Dioxide 27 (22-32) mmol/L BUN 27 H (9-20) mg/dL Creatinine 0.84 (0.66-1.25) mg/dL Estimated GFR > 60.0 (>60) mL/min BUN/Creatinine Ratio 32.1 H (6-22) Glucose 131 H (80-110) mg/dL Calcium 9.9 (8.4-10.2) mg/dL Total Bilirubin 0.6 (0.2-1.3) mg/dL AST 66 H (17-59) IU/L ALT 69 H (<50) IU/L Alkaline Phosphatase 69 (38-126) U/L Total Creatine Kinase 783 H (55-170) U/L CK-MB (CK-2) 19.20 H (<2.37) ng/mL CK-MB (CK-2) Rel Index 2.5 (1.5-5.0) % Troponin I 0.644 H* (0.01-0.034) ng/mL NT-Pro-B Natriuret Pep 213 (<450) pg/mL Total Protein 8.1 (6.3-8.2) g/dL Albumin 4.2 (3.5-5.0) g/dL Globulin 3.9 (1.7-4.1) g/dL Albumin/Globulin Ratio 1.1 (1.0-2.8) Lipase 91 (23-300) U/L SARS-CoV-2 (PCR) (Negative) 01/29/21 01/29/21 01/29/21 Range/Units 06:00 08:38 09:06 WBC (4.5-11.0) X10^3/uL RBC (4.5-5.9) X10^6/uL Hgb (13.5-17.5) g/dL Hct (41-53) % MCV (80-100) fL MCH (26-34) PG MCHC (30-36) % RDW (11.6-14.8) % Plt Count (150-400) X10^3/uL Neut % (Auto) (50-75) % Lymph % (Auto) (25-40) % [place] % (Auto) (3-14) % Eos % (Auto) (2-4) % Baso % (Auto) (0-2) % Neut # (Auto) (3557-3177) /uL Lymph # (Auto) (8121-1135) /uL [place] # (Auto) (0-900) /uL Eos # (Auto) (0-450) /uL Baso # (Auto) (0-100) /uL APTT 38 H 76 H* D (26.4-36.2) SECONDS Sodium (137-145) mmol/L Potassium (3.4-5.1) mmol/L Chloride (98-107) mmol/L Carbon Dioxide (22-32) mmol/L BUN (9-20) mg/dL Creatinine (0.66-1.25) mg/dL Estimated GFR (>60) mL/min BUN/Creatinine Ratio (6-22) Glucose (80-110) mg/dL Calcium (8.4-10.2) mg/dL Total Bilirubin (0.2-1.3) mg/dL AST (17-59) IU/L ALT (<50) IU/L Alkaline Phosphatase (38-126) U/L Total Creatine Kinase (55-170) U/L CK-MB (CK-2) (<2.37) ng/mL CK-MB (CK-2) Rel Index (1.5-5.0) % Troponin I (0.01-0.034) ng/mL NT-Pro-B Natriuret Pep (<450) pg/mL Total Protein (6.3-8.2) g/dL Albumin (3.5-5.0) g/dL Globulin (1.7-4.1) g/dL Albumin/Globulin Ratio (1.0-2.8) Lipase (23-300) U/L SARS-CoV-2 (PCR) Negative (Negative) 01/29/21 01/29/21 01/29/21 Range/Units 09:06 15:09 17:38 WBC (4.5-11.0) X10^3/uL RBC (4.5-5.9) X10^6/uL Hgb (13.5-17.5) g/dL Hct (41-53) % MCV (80-100) fL MCH (26-34) PG MCHC (30-36) % RDW (11.6-14.8) % Plt Count (150-400) X10^3/uL Neut % (Auto) (50-75) % Lymph % (Auto) (25-40) % [place] % (Auto) (3-14) % Eos % (Auto) (2-4) % Baso % (Auto) (0-2) % Neut # (Auto) (4031-2951) /uL Lymph # (Auto) (0377-1314) /uL [place] # (Auto) (0-900) /uL Eos # (Auto) (0-450) /uL Baso # (Auto) (0-100) /uL APTT 54 H D (26.4-36.2) SECONDS Sodium (137-145) mmol/L Potassium (3.4-5.1) mmol/L Chloride (98-107) mmol/L Carbon Dioxide (22-32) mmol/L BUN (9-20) mg/dL Creatinine (0.66-1.25) mg/dL Estimated GFR (>60) mL/min BUN/Creatinine Ratio (6-22) Glucose (80-110) mg/dL Calcium (8.4-10.2) mg/dL Total Bilirubin (0.2-1.3) mg/dL AST (17-59) IU/L ALT (<50) IU/L Alkaline Phosphatase (38-126) U/L Total Creatine Kinase 718 H (55-170) U/L CK-MB (CK-2) 19.70 H (<2.37) ng/mL CK-MB (CK-2) Rel Index 2.7 (1.5-5.0) % Troponin I 0.698 H* 1.300 H* (0.01-0.034) ng/mL NT-Pro-B Natriuret Pep (<450) pg/mL Total Protein (6.3-8.2) g/dL Albumin (3.5-5.0) g/dL Globulin (1.7-4.1) g/dL Albumin/Globulin Ratio (1.0-2.8) Lipase (23-300) U/L SARS-CoV-2 (PCR) (Negative) Imaging Data Chest x-ray: Radiologist's Impression: No active disease in the chest. ECG Data Attestation: I personally reviewed and interpreted this ECG as follows: Interpretation: EKG 1. Sinus rhythm first-degree AV block. Nonspecific change. Rate of 73 RI 228, QRS is 78 QTC of 427. Nonspecific change. EKG 2. Sinus rhythm first-degree AV block rate of 64, RI 272, QRS 82 and QTC 394. MDM Narrative Medical decision making narrative: 76-year-old male comes with complaint of chest which seems of very cardiac in nature. Chest pain was returning in the department after nitro sublingual and was started on nitro drip and heparin. Patient has had aspirin 324 mg while labs are pending. Patient was signed out to Dr. Renee. Dr renee: Received turned over, reviewed patient's history and physical. Performed my own independent exam. Patient's EKG has nonspecific changes. Presenting symptoms helped with Nitro-Bid as that wore off his symptoms return. He is placed on a nitro drip and has been pain-free since then. Is also started on heparin. Troponin elevated. Discussed the case with Internal Medicine and also Cardiology at who accepts the patient in transfer. I did discuss transfer with the patient. He expressed understanding agreement. He is stable for transport. <Spike Renee, DO - Last Filed: 01/29/21 17:18> Lab Data Labs: Lab Results 01/29/21 01/29/21 01/29/21 Range/Units 06:00 06:00 06:00 WBC 10.2 (4.5-11.0) X10^3/uL RBC 4.60 (4.5-5.9) X10^6/uL Hgb 15.4 (13.5-17.5) g/dL Hct 46.1 (41-53) % MCV 100.1 H (80-100) fL MCH 33.5 (26-34) PG MCHC 33.4 (30-36) % RDW 14.0 (11.6-14.8) % Plt Count 191 (150-400) X10^3/uL Neut % (Auto) 55.9 (50-75) % Lymph % (Auto) 25.4 (25-40) % [place] % (Auto) 15.5 H (3-14) % Eos % (Auto) 2.6 (2-4) % Baso % (Auto) 0.6 (0-2) % Neut # (Auto) 5700 (0649-8474) /uL Lymph # (Auto) 2600 (9012-7113) /uL [place] # (Auto) 1600 H (0-900) /uL Eos # (Auto) 300 (0-450) /uL Baso # (Auto) 100 (0-100) /uL APTT (26.4-36.2) SECONDS Sodium 142 (137-145) mmol/L Potassium 4.6 (3.4-5.1) mmol/L Chloride 107 (98-107) mmol/L Carbon Dioxide 27 (22-32) mmol/L BUN 27 H (9-20) mg/dL Creatinine 0.84 (0.66-1.25) mg/dL Estimated GFR > 60.0 (>60) mL/min BUN/Creatinine Ratio 32.1 H (6-22) Glucose 131 H (80-110) mg/dL Calcium 9.9 (8.4-10.2) mg/dL Total Bilirubin 0.6 (0.2-1.3) mg/dL AST 66 H (17-59) IU/L ALT 69 H (<50) IU/L Alkaline Phosphatase 69 (38-126) U/L Total Creatine Kinase 783 H (55-170) U/L CK-MB (CK-2) 19.20 H (<2.37) ng/mL CK-MB (CK-2) Rel Index 2.5 (1.5-5.0) % Troponin I 0.644 H* (0.01-0.034) ng/mL NT-Pro-B Natriuret Pep 213 (<450) pg/mL Total Protein 8.1 (6.3-8.2) g/dL Albumin 4.2 (3.5-5.0) g/dL Globulin 3.9 (1.7-4.1) g/dL Albumin/Globulin Ratio 1.1 (1.0-2.8) Lipase 91 (23-300) U/L SARS-CoV-2 (PCR) (Negative) 01/29/21 01/29/21 01/29/21 Range/Units 06:00 08:38 09:06 WBC (4.5-11.0) X10^3/uL RBC (4.5-5.9) X10^6/uL Hgb (13.5-17.5) g/dL Hct (41-53) % MCV (80-100) fL MCH (26-34) PG MCHC (30-36) % RDW (11.6-14.8) % Plt Count (150-400) X10^3/uL Neut % (Auto) (50-75) % Lymph % (Auto) (25-40) % [place] % (Auto) (3-14) % Eos % (Auto) (2-4) % Baso % (Auto) (0-2) % Neut # (Auto) (7313-0274) /uL Lymph # (Auto) (4305-0357) /uL [place] # (Auto) (0-900) /uL Eos # (Auto) (0-450) /uL Baso # (Auto) (0-100) /uL APTT 38 H 76 H* D (26.4-36.2) SECONDS Sodium (137-145) mmol/L Potassium (3.4-5.1) mmol/L Chloride (98-107) mmol/L Carbon Dioxide (22-32) mmol/L BUN (9-20) mg/dL Creatinine (0.66-1.25) mg/dL Estimated GFR (>60) mL/min BUN/Creatinine Ratio (6-22) Glucose (80-110) mg/dL Calcium (8.4-10.2) mg/dL Total Bilirubin (0.2-1.3) mg/dL AST (17-59) IU/L ALT (<50) IU/L Alkaline Phosphatase (38-126) U/L Total Creatine Kinase (55-170) U/L CK-MB (CK-2) (<2.37) ng/mL CK-MB (CK-2) Rel Index (1.5-5.0) % Troponin I (0.01-0.034) ng/mL NT-Pro-B Natriuret Pep (<450) pg/mL Total Protein (6.3-8.2) g/dL Albumin (3.5-5.0) g/dL Globulin (1.7-4.1) g/dL Albumin/Globulin Ratio (1.0-2.8) Lipase (23-300) U/L SARS-CoV-2 (PCR) Negative (Negative) 01/29/21 01/29/21 01/29/21 Range/Units 09:06 15:09 17:38 WBC (4.5-11.0) X10^3/uL RBC (4.5-5.9) X10^6/uL Hgb (13.5-17.5) g/dL Hct (41-53) % MCV (80-100) fL MCH (26-34) PG MCHC (30-36) % RDW (11.6-14.8) % Plt Count (150-400) X10^3/uL Neut % (Auto) (50-75) % Lymph % (Auto) (25-40) % [place] % (Auto) (3-14) % Eos % (Auto) (2-4) % Baso % (Auto) (0-2) % Neut # (Auto) (1993-9362) /uL Lymph # (Auto) (4739-2142) /uL [place] # (Auto) (0-900) /uL Eos # (Auto) (0-450) /uL Baso # (Auto) (0-100) /uL APTT 54 H D (26.4-36.2) SECONDS Sodium (137-145) mmol/L Potassium (3.4-5.1) mmol/L Chloride (98-107) mmol/L Carbon Dioxide (22-32) mmol/L BUN (9-20) mg/dL Creatinine (0.66-1.25) mg/dL Estimated GFR (>60) mL/min BUN/Creatinine Ratio (6-22) Glucose (80-110) mg/dL Calcium (8.4-10.2) mg/dL Total Bilirubin (0.2-1.3) mg/dL AST (17-59) IU/L ALT (<50) IU/L Alkaline Phosphatase (38-126) U/L Total Creatine Kinase 718 H (55-170) U/L CK-MB (CK-2) 19.70 H (<2.37) ng/mL CK-MB (CK-2) Rel Index 2.7 (1.5-5.0) % Troponin I 0.698 H* 1.300 H* (0.01-0.034) ng/mL NT-Pro-B Natriuret Pep (<450) pg/mL Total Protein (6.3-8.2) g/dL Albumin (3.5-5.0) g/dL Globulin (1.7-4.1) g/dL Albumin/Globulin Ratio (1.0-2.8) Lipase (23-300) U/L SARS-CoV-2 (PCR) (Negative) MDM Narrative Medical decision making narrative: 76-year-old male comes with complaint of chest which seems of very cardiac in nature. Chest pain was returning in the department after nitro sublingual and was started on nitro drip and heparin. Patient has had aspirin 324 mg Patient was signed out to Dr. Renee. Dr renee: Received turned over, reviewed patient's history and physical. Performed my own independent exam. Patient's EKG has nonspecific changes. Presenting symptoms helped with Nitro-Bid as that wore off his symptoms return. He is placed on a nitro drip and has been pain-free since then. Is also started on heparin. Troponin elevated. Discussed the case with Internal Medicine and also Cardiology at who accepts the patient in transfer. I did discuss transfer with the patient. He expressed understanding agreement. He is stable for transport. <Spike Renee, DO - Last Filed: 01/29/21 17:18> Critical Care Time Critical Care Time: Yes Total Critical Care Time: 45 Attestation: The high probability of a clinically significant, sudden or life threatening deterioration of the cardiovascular system(s) required my full and direct attention, intervention and personal management. The aggregate critical care time was [45] minutes. This time is in addition to time spent performing reported procedures but includes the following: [x] Data Review and interpretation [x] Patient assessment and monitoring of vital signs [x] Documentation [x] Medication orders and management Discharge Plan Departure Patient Disposition: [facility] Clinical Impression: Non-ST elevation AK (NSTEMI) Prescriptions: No Action losartan 100 mg tablet 100 mg PO DAILY Qty: 90 RF: 3 allopurinol 300 mg tablet 300 mg PO DAILY Qty: 90 RF: 3 amlodipine 5 mg tablet 5 mg PO DAILY Qty: 90 RF: 3 ICaps AREDS2 (copper citrate) 250 mg-200 unit -12.5 mg-1 mg tablet 1 tab PO BID RF: 0 acetaminophen 325 mg Tablet 1 dose PO PRN PRN (Reason: pain) RF: 0 aspirin 81 mg Tablet,Delayed Release (Dr/Ec) 81 mg PO DAILY RF: 0 PreserVision AREDS-2 [id number] Capsule 1 cap PO BID RF: 0 turmeric 1 tab PO DAILY RF: 0 (DME) Resmed Airsense 10 CPAP Qty: 1 RF: 0 Referrals: Yunior Atkinson MD [Primary Care Provider] -
[2021-01-29] MEDS: ACETAMINOPHEN 325 MG TABLET 650 MG PO (08:39)
[2021-01-29 08:54] LABS: COVID19 -Nasal RAPID Negative (Negative)
[2021-01-29 09:32] LABS: Creatine Kinase 718 U/L (55-170)
[2021-01-29 09:48] LABS: CKMB % Relative Index 2.7 % (1.5-5.0); Troponin I 0.698 ng/mL (0.01-0.034)
[2021-01-29 10:01] LABS: PTT Partial Thromboplastin Tim 76 SECONDS (26.4-36.2)
--- NOTE | 2021-01-29 10:02 | PC.NURSE ---
in to do cardiac assessment and pt was tearful, states he's scared, explained he's in good care. and that [facility] is also a [facility] hospital. pt and his began talking, he seemed more calm.
--- NOTE | 2021-01-29 10:24 | PC.NURSE ---
Discussed Heparin Protocol with Dr Renee. PTT at 4hr junie 76, decreased heparin drip to 19ml/hr based on protocol. Additional PTT will be drawn at 1500.
--- NOTE | 2021-01-29 15:10 | PC.NURSE ---
Dr Renee made aware of patient blood pressures trending up. No further orders at this time.
[2021-01-29 15:30] LABS: PTT Partial Thromboplastin Tim 54 SECONDS (26.4-36.2)
== END 2021-01-29 18:03 | disposition short-term general hospital (02) ==
PROVIDERS: Emergency Medicine; Emergency Provider Emergency Medicine; Family Provider Student in an Organized Health Care Education/Training Program; PCP Student in an Organized Health Care Education/Training Program
DX: I21.4 Non-ST elevation (NSTEMI) myocardial infarction (principal); R07.9 Chest pain, unspecified; Z20.822 Contact with and (suspected) exposure to COVID-19
CPT/HCPCS: 36415; 71045; 80053; 82550; 82553; 83690; 83880; 84484; 85025; 85730; 87635; 93005; 96365; 96366; 96368; 96375; 99284; 99291; C9803; J1644

== ENCOUNTER → 2021-07-11 14:14 | Outpatient (CLI) | payer MEDICARE, OTHER, SELFPAY ==
[2021-07-11 15:17] LABS: Hematocrit 45.7 % (41-53); Hemoglobin 15.3 g/dL (13.5-17.5); Mean Corpuscular HGB Conc 33.6 % (30-36); Mean Corpuscular Hemoglobin 32.8 PG (26-34); Mean Corpuscular Volume 97.8 fL (80-100); Platelet Count 207 X10^3/uL (150-400); Red Blood Cell Count 4.68 X10^6/uL (4.5-5.9); Red Cell Distribution Width 14.2 % (11.6-14.8)
[2021-07-11 15:47] LABS: Alanine Aminotransferase 55 IU/L (<50); Albumin 4.5 g/dL (3.5-5.0); Albumin Globulin Ratio 1.2 (1.0-2.8); Alkaline Phosphatase 62 U/L (38-126); Aspartate Aminotransferase 51 IU/L (17-59); BUN Creatinine Ratio 30.8 (6-22); Bilirubin Total 0.6 mg/dL (0.2-1.3); Blood Urea Nitrogen 28 mg/dL (9-20); Calcium 9.6 mg/dL (8.4-10.2); Carbon Dioxide 22 mmol/L (22-32); Chloride 109 mmol/L (98-107); Cholesterol 132 mg/dL (140-199); Estimated Glomerular Filt Rate > 60.0 mL/min (>60); Globulin 3.8 g/dL (1.7-4.1); Glucose 87 mg/dL (80-110); HDL Cholesterol 26 mg/dL (40-60); HEMOLYSIS < 15 (0-50); Potassium 4.9 mmol/L (3.4-5.1); Sodium 141 mmol/L (137-145); Total Protein 8.3 g/dL (6.3-8.2); Triglycerides 458 mg/dL (35-150)
[2021-07-17 02:09] LABS: CK-BB 0 % (0); CK-MB 5 % (0-3); CK-MM 91 % (97-100); Macro Type 1 4 % (Not Observed); Macro Type 2 0 % (Not Observed)
== END ==
PROVIDERS: Family Provider Student in an Organized Health Care Education/Training Program; PCP Student in an Organized Health Care Education/Training Program; Referring Provider Student in an Organized Health Care Education/Training Program; Visit Provider Student in an Organized Health Care Education/Training Program
DX: E78.5 Hyperlipidemia, unspecified (principal); I10 Essential (primary) hypertension; M60.80 Other myositis, unspecified site
CPT/HCPCS: 36415; 80053; 80061; 82550; 82553; 85027

== ENCOUNTER 2021-08-23 12:30 | Outpatient (RCR) | payer MEDICARE, OTHER, SELFPAY | END 2021-08-23 14:30 | LOC: CAR 12:30 | PROVIDERS: Family Provider Student in an Organized Health Care Education/Training Program; PCP Student in an Organized Health Care Education/Training Program; Referring Provider Internal Medicine; Visit Provider Internal Medicine | DX: Z95.5 Presence of coronary angioplasty implant and graft (principal) | CPT/HCPCS: 93798 ==

== ENCOUNTER → 2022-06-08 13:37 | Outpatient (CLI) | payer MEDICARE, OTHER, SELFPAY ==
--- NOTE | 2022-06-08 13:40 | DI.RAD.S_ITS ---
PROCEDURE: XR SHOULDER LT MIN 2V INDICATIONS: R>L shoulder pain s/p fall TECHNIQUE: 3 views of the shoulder were acquired. COMPARISON: None. FINDINGS: Bones: Mild acromioclavicular and moderate glenohumeral degenerative changes. No acute fracture or dislocation identified. Soft tissues: No suspicious calcifications. IMPRESSION: Shoulder degenerative changes without acute radiographic abnormality. If there is high concern for further derangement, consider MRI evaluation. Dictated by: Pal Zuniga M.D. on 06/08/2022 at 16:54 Approved by: Pal Zuniga M.D. on 06/08/2022 at 16:55
--- NOTE | 2022-06-08 13:40 | DI.RAD.S_ITS ---
PROCEDURE: XR SHOULDER RT MIN 2V INDICATIONS: R>L shoulder pain s/p fall TECHNIQUE: 3 views of the shoulder were acquired. COMPARISON: None. FINDINGS: Bones: Crby-de-jjxtiiuj acromioclavicular and glenohumeral degenerative changes. No acute fracture or dislocation identified. Soft tissues: No suspicious soft tissue calcifications. IMPRESSION: Aaxt-zs-dulvzfvz degenerative changes of the shoulder. If there is high concern for further derangement, consider MRI evaluation. Dictated by: Pal Zuniga M.D. on 06/08/2022 at 16:53 Approved by: Pal Zuniga M.D. on 06/08/2022 at 16:54
--- NOTE | 2022-06-08 13:40 | DI.RAD.S_ITS ---
PROCEDURE: XR LUMBAR SPINE MIN 4V INDICATIONS: Low Back Pain TECHNIQUE: Five views of the lumbar spine COMPARISON: None. FINDINGS: Bones: Bilateral hip arthroplasties. Moderate degenerative changes. Endplate deformities are probably chronic. These were likely present on prior MRI. Evaluation is significantly limited by poor penetration of x-ray. Oblique views are difficult to interpret. Soft tissues: Overlying bowel gas pattern is normal. No suspicious soft tissue calcifications. IMPRESSION: Suspected spondylosis and chronic endplate deformities. Radiograph is limited due to poor penetration of the x-ray. If there is high concern for further derangement, consider MRI evaluation. Dictated by: Pal Zuniga M.D. on 06/08/2022 at 16:55 Approved by: Pal Zuniga M.D. on 06/08/2022 at 16:58
== END ==
PROVIDERS: Family Provider Student in an Organized Health Care Education/Training Program; PCP Student in an Organized Health Care Education/Training Program; Referring Provider Anesthesiology; Visit Provider Anesthesiology
DX: M54.17 Radiculopathy, lumbosacral region (principal); M25.511 Pain in right shoulder; M25.512 Pain in left shoulder; Z96.643 Presence of artificial hip joint, bilateral
CPT/HCPCS: 72110; 73030

== ENCOUNTER 2022-07-30 00:27 | Emergency (ER) | payer MEDICARE, OTHER, SELFPAY ==
[2022-07-30] VITALS (17 sets, daily range): BP systolic 144–169; BP diastolic 74–107; PULSE 86–100; RESP 12–27; TEMP 36.6; O2SAT 91–96
--- NOTE | 2022-07-30 00:35 | ED.TRAUMA ---
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 He states that he was in his normal state of health and remembers being at the top of a flight of 9 stairs and does not know how he ended up at the bottom. He has what he refers to as a rug burn on the top of his head but denies any neck or back pain. He states his shoulder which was recently injected actually feels quite good. Denies chest pain or shortness of breath. He has no nausea, vomiting or diarrhea. He denies any abdominal pain, hip pain or lower extremity injuries Related Data Home Medications Medication Instructions Recorded Confirmed acetaminophen 325 mg tablet 1 dose PO PRN PRN pain 08/12/18 06/25/22 aspirin 81 mg tablet,delayed 81 mg PO DAILY 08/12/18 06/25/22 release turmeric 1 tab PO DAILY 08/12/18 06/25/22 vit C 250 mg-vit E 90 mg-zinc 40 1 cap PO BID 08/12/18 06/25/22 mg-copper 1 [id number]-gofkmr capsule (PreserVision AREDS-2) Resmed Airsense 10 CPAP #1 ea 04/29/19 06/25/22 vit C 250 mg-vit E 200 unit-zinc 1 tab PO BID 10/04/20 06/25/22 12.5 mg-copper 1 bg-faf-bbplbf tablet (ICaps AREDS2 (copper citrate)) alirocumab 150 mg/mL subcutaneous 150 mg SUBCUT Q14D 04/03/22 06/25/22 pen injector (Praluent Pen) apixaban 5 mg tablet (Eliquis) 5 mg PO BID 04/03/22 06/25/22 icosapent ethyl 1 gram capsule 2 g PO BID 04/03/22 06/25/22 metoprolol succinate 50 mg 50 mg PO DAILY 04/03/22 06/25/22 tablet,extended release 24 hr amlodipine 10 mg tablet 10 mg PO DAILY 05/20/22 06/25/22 carvedilol 12.5 mg tablet 12.5 mg PO DAILY 05/20/22 06/25/22 hydrochlorothiazide 25 mg tablet 25 mg PO DAILY 05/20/22 06/25/22 Previous Rx's Medication Instructions Recorded naltrexone hcl 4.5 mg PO DAILY #90 caps 08/29/21 losartan 100 mg tablet 100 mg PO DAILY #15 tabs 02/04/22 allopurinol 300 mg tablet 300 mg PO DAILY #90 tabs 04/03/22 methocarbamol 500 mg tablet 500 mg PO TID #60 tabs 05/20/22 lidocaine 5 % topical patch 1 patch topical DAILY #30 ea 06/25/22 Allergies Allergy/AdvReac Type Severity Reaction Status Date / Time prednisone Allergy Severe Confusion Verified 06/25/22 13:20 celecoxib [From Celebrex] Allergy Intermediate Gastrointestinal Verified 06/25/22 13:16 Upset oxycodone [From Percocet] Allergy Intermediate Nausea Verified 05/20/22 11:40 Nqejfhx-WHU-ZlK Reductase AdvReac Severe Autoimmune Verified 05/20/22 11:40 Inhibitor myositis [Bgdsbsf-Xov-Oed Reductase Inhibitor] codeine AdvReac Mild Redness of Verified 05/20/22 11:40 Skin Review of Systems Review of Systems Narrative: GENERAL: Denies chills, fatigue, malaise, fever, sweats. HEENT: Denies sinus pain, ear pain, sore throat, difficulty swallowing, dizziness. RESPIRATORY: Denies dyspnea, cough, wheezing, hemoptysis, sputum. CARDIOVASCULAR: Denies chest pain, palpitations, orthopnea, edema, GASTROINTESTINAL: Denies nausea, vomiting, abdominal pain, diarrhea, constipation, melena. : Denies dysuria, frequency, incontinence, hematuria, urinary retention. MUSCULOSKELETAL: denies weakness, joint pain, or bony pain SKIN: Denies rash, skin lesions, or other NEUROLOGIC: Denies weakness, headache, numbness, change in speech, confusion, seizures, incoordination. PSYCHIATRIC: No concerning psychosocial issues. 12 point review of systems is negative except for those stated above Patient History Medical History Coronary artery disease Hyperlipidemia Hypertension Kidney stones Low back pain Shoulder pain Surgical History H/O lithotripsy Hx of appendectomy Social History Smoking Status: Former smoker Smoking Status: Former smoker alcohol intake frequency: a few times a week Substance Use Type: does not use Exam Narrative Exam Narrative: GENERAL: [77] year old patient appears stated age. Well-developed patient, in mild distress. GCS 15 HEAD: Very superficial abrasion right parietal scalp, no laceration, occipital hematoma, no obvious depressed skull fracture EYES: Pupils equal round and reactive. No hyphema Extraocular motions intact. No scleral icterus. No injection or drainage. ENT: Nose without bleeding, purulent drainage. No nasal septal hematoma Throat without erythema, tonsillar hypertrophy or exudate. Airway patent. NECK: Trachea midline. Non tender, no step-offs, crepitance, no change with axial load CARDIOVASCULAR: Regular rate and rhythm without murmurs, gallops, or rubs. RESPIRATORY: Clear to auscultation. Breath sounds equal bilaterally. No wheezes, rales, or rhonchi. GASTROINTESTINAL: Abdomen soft, non-tender, nondistended. EXTREMITIES: No edema or joint tenderness. BACK: Nontender without deformity or crepitance. No flank tenderness. NEURO: AOx3. SKIN: No rash or erythema of visible areas Initial Vital Signs Initial Vital Signs: Vital Signs Pulse Rate 100 H 07/30/22 00:29 Blood Pressure 163/107 H 07/30/22 00:29 Pulse Oximetry 93 07/30/22 00:29 Oxygen Delivery Method 07/30/22 00:29 Course Orders Ordered: ED Orders 07/30/22 00:29 Complete Blood Count AUTO DIFF Stat Comprehensive Metabolic Panel Stat Ethanol (ETOH) Stat Lactate (Lactic Acid) Stat Lipase Stat Type and Screen Stat 07/30/22 00:35 Urine Drug Screen, Rapid Stat EKG-12 Lead Stat 07/30/22 00:36 CT cervical spine wo con Stat CT chest abd pel w con Stat CT head/brain wo con Stat 07/30/22 01:16 Partial Thromboplastin Time Stat Prothrombin Time INR Stat 07/30/22 01:24 COVID19 -Nasal RAPID/Pre-Proc Stat Consultations Consultation #1: 0150 - [facility] [place], [facility] activated 0155 - Dr. Fulton ([facility]) accepts. No need for TXA, [facility], hold off for now. 0157 - [facility] cannot fly due to weather 0210 - [facility] is here, checked with commercial airline pilot/weather, ok for transfer (patient/family enrolled with [employer] online PRIOR to departure from ED) Vital Signs Vital signs: Vital Signs - 8 hr 07/30/22 00:30 07/30/22 00:43 07/30/22 00:29 Temperature 97.8 F Pulse Rate 96 H 97 H Respiratory Rate 18 20 Blood Pressure 163/107 H 162/99 H 163/107 H Pulse Oximetry 96 93 Oxygen Delivery Method Room Air Room Air Oxygen Flow Rate 07/30/22 00:29 07/30/22 00:30 07/30/22 00:44 Temperature Pulse Rate 100 H 98 H Respiratory Rate Blood Pressure 162/99 H Pulse Oximetry 93 94 Oxygen Delivery Method Room Air Room Air Oxygen Flow Rate 07/30/22 00:44 07/30/22 01:12 07/30/22 01:14 Temperature Pulse Rate 96 H 89 Respiratory Rate 24 22 Blood Pressure 155/80 H Pulse Oximetry 93 Oxygen Delivery Method Oxygen Flow Rate 07/30/22 01:14 07/30/22 01:21 07/30/22 01:21 Temperature Pulse Rate 91 H 86 Respiratory Rate 16 12 Blood Pressure 164/79 H Pulse Oximetry 93 93 Oxygen Delivery Method Oxygen Flow Rate 07/30/22 01:30 07/30/22 01:31 07/30/22 01:31 Temperature Pulse Rate 88 89 Respiratory Rate 14 13 Blood Pressure 165/88 H Pulse Oximetry Oxygen Delivery Method Oxygen Flow Rate 07/30/22 01:41 07/30/22 01:41 Temperature Pulse Rate 92 H Respiratory Rate 21 Blood Pressure 144/74 H Pulse Oximetry 92 Oxygen Delivery Method Oxygen Flow Rate 0 MDM - Trauma Lab Data 07/30/22 00:29 07/30/22 00:29 Labs: Lab Results 07/30/22 07/30/22 07/30/22 Range/Units 00:29 00:29 00:29 WBC 13.4 H (4.5-11.0) X10^3/uL RBC 4.61 (4.5-5.9) X10^6/uL Hgb 15.5 (13.5-17.5) g/dL Hct 45.9 (41-53) % MCV 99.4 (80-100) fL MCH 33.6 (26-34) PG MCHC 33.8 (30-36) % RDW 14.1 (11.6-14.8) % Plt Count 201 (150-400) X10^3/uL Neut % (Auto) 88.2 H (50-75) % Lymph % (Auto) 8.3 L (25-40) % Zapata % (Auto) 3.1 (3-14) % Eos % (Auto) 0.1 L (2-4) % Baso % (Auto) 0.3 (0-2) % Neut # (Auto) 19455 H (0246-3243) /uL Lymph # (Auto) 1100 (5187-9526) /uL Zapata # (Auto) 400 (0-900) /uL Eos # (Auto) 0 (0-450) /uL Baso # (Auto) 0 (0-100) /uL PT (10.1-12.7) SECONDS INR (0.9-1.3) APTT (26-36) SECONDS Sodium 142 (137-145) mmol/L Potassium 4.6 (3.4-5.1) mmol/L Chloride 107 (98-107) mmol/L Carbon Dioxide 19 L (22-32) mmol/L BUN 51 H (9-20) mg/dL Creatinine 0.79 (0.66-1.25) mg/dL Estimated GFR > 60 (>60) mL/min BUN/Creatinine Ratio 64.6 H (6-22) Glucose 190 H (80-110) mg/dL Lactate 1.8 (0.7-2.1) mmol/L Calcium 9.6 (8.4-10.2) mg/dL Total Bilirubin 0.6 (0.2-1.3) mg/dL AST 39 (17-59) IU/L ALT 49 (<50) IU/L Alkaline Phosphatase 68 (38-126) U/L Total Protein 8.4 H (6.3-8.2) g/dL Albumin 4.4 (3.5-5.0) g/dL Globulin 4.0 (1.7-4.1) g/dL Albumin/Globulin Ratio 1.1 (1.0-2.8) Lipase 99 (23-300) U/L Ethyl Alcohol < 10 ( - 10) mg/dL Blood Type Antibody Screen 07/30/22 07/30/22 Range/Units 00:29 01:16 WBC (4.5-11.0) X10^3/uL RBC (4.5-5.9) X10^6/uL Hgb (13.5-17.5) g/dL Hct (41-53) % MCV (80-100) fL MCH (26-34) PG MCHC (30-36) % RDW (11.6-14.8) % Plt Count (150-400) X10^3/uL Neut % (Auto) (50-75) % Lymph % (Auto) (25-40) % Zapata % (Auto) (3-14) % Eos % (Auto) (2-4) % Baso % (Auto) (0-2) % Neut # (Auto) (1021-3277) /uL Lymph # (Auto) (3239-9191) /uL Zapata # (Auto) (0-900) /uL Eos # (Auto) (0-450) /uL Baso # (Auto) (0-100) /uL PT 17.4 H (10.1-12.7) SECONDS INR 1.5 H (0.9-1.3) APTT 37 H (26-36) SECONDS Sodium (137-145) mmol/L Potassium (3.4-5.1) mmol/L Chloride (98-107) mmol/L Carbon Dioxide (22-32) mmol/L BUN (9-20) mg/dL Creatinine (0.66-1.25) mg/dL Estimated GFR (>60) mL/min BUN/Creatinine Ratio (6-22) Glucose (80-110) mg/dL Lactate (0.7-2.1) mmol/L Calcium (8.4-10.2) mg/dL Total Bilirubin (0.2-1.3) mg/dL AST (17-59) IU/L ALT (<50) IU/L Alkaline Phosphatase (38-126) U/L Total Protein (6.3-8.2) g/dL Albumin (3.5-5.0) g/dL Globulin (1.7-4.1) g/dL Albumin/Globulin Ratio (1.0-2.8) Lipase (23-300) U/L Ethyl Alcohol ( - 10) mg/dL Blood Type O Positive Antibody Screen Negative Point of Care Testing Glucose POC [address] scan - head: Radiologist's Impression: [address] [address] [address] Scan Report Signed Patient: Hadley Wilkes MR#: [id number] : 1945 Acct:[id number] Age/Sex: 77 / M Date of Service: 07/30/22 Loc: ED Accession Number: [id number] ?? Procedure: CT head/brain wo con Ordering Provider: Mariano Culp D.O. PROCEDURE:? CT HEAD/BRAIN WO CON ? INDICATIONS:? Trauma ? TECHNIQUE:? Noncontrast 4.5 mm thick angled axial sections acquired from the foramen magnum to the vertex, with coronal and sagittal reformats.? For radiation dose reduction, the following was used:? automated exposure control, adjustment of mA and/or kV according to patient size.? ? COMPARISON:? [facility], CT, CT CERVICAL SPINE WO CON, 07/30/2022, 0:55.? [facility], CT, HEAD WITHOUT CONTRAST, 06/17/2008, 14:06. ? FINDINGS:? Image quality:? Excellent.? ? CSF spaces:? Basal cisterns are patent. ? There is mild cerebral volume loss, with resultant ventricular and sulcal prominence.? ? Brain:? There is a small amount of subdural hemorrhage tracking along the falx anteriorly.? A small amount of subdural hemorrhage is also demonstrated layering along the right tentorium.? On the left, there is a minimal amount of subarachnoid hemorrhage within a left frontal lobe sulcus along the sylvian fissure as seen on series 2, image 16. No midline shift.? No intracranial mass.? There are subcortical, periventricular and deep white matter hypodensities consistent with mild chronic small vessel ischemic changes.? The mazariegos-white matter junction appears preserved.? There is intracranial internal carotid artery atherosclerosis.? ? Skull and face:? There is right posterior parietal scalp soft tissue swelling with a lobulated small scalp hematoma.? Calvarium and visualized facial bones appear intact, without suspicious lesions.? ? Sinuses:? Visualized sinuses and mastoids are clear.? ? IMPRESSION:? ? 1. Small amount of subdural hematoma along the falx and along the right tentorium as well as minimal left frontal subarachnoid hemorrhage as described.? No midline shift or other mass effect.? Findings discussed with Dr. Culp on 07/30/2022 at 1:21 a.m.. ? 2. Mild cerebral volume loss and chronic white matter small vessel ischemic changes.? ? 3. Right posterior parietal scalp hematoma without evidence of calvarium fracture. ? ? Dictated by: Gigi Russo M.D. on 07/30/2022 at 1:20 ? ? Approved by: Gigi Russo M.D. on 07/30/2022 at 1:27 ? CT - cervical spine: Radiologist's Impression: [address] [address] [address] Scan Report Signed Patient: Hadley Wilkes MR#: [id number] : 1945 Acct:[id number] Age/Sex: 77 / M Date of Service: 07/30/22 Loc: ED Accession Number: [id number] ?? Procedure: CT head/brain wo con Ordering Provider: Mariano Culp D.O. PROCEDURE:? CT HEAD/BRAIN WO CON ? INDICATIONS:? Trauma ? TECHNIQUE:? Noncontrast 4.5 mm thick angled axial sections acquired from the foramen magnum to the vertex, with coronal and sagittal reformats.? For radiation dose reduction, the following was used:? automated exposure control, adjustment of mA and/or kV according to patient size.? ? COMPARISON:? [facility], CT, CT CERVICAL SPINE WO CON, 07/30/2022, 0:55.? [facility], CT, HEAD WITHOUT CONTRAST, 06/17/2008, 14:06. ? FINDINGS:? Image quality:? Excellent.? ? CSF spaces:? Basal cisterns are patent. ? There is mild cerebral volume loss, with resultant ventricular and sulcal prominence.? ? Brain:? There is a small amount of subdural hemorrhage tracking along the falx anteriorly.? A small amount of subdural hemorrhage is also demonstrated layering along the right tentorium.? On the left, there is a minimal amount of subarachnoid hemorrhage within a left frontal lobe sulcus along the sylvian fissure as seen on series 2, image 16. No midline shift.? No intracranial mass.? There are subcortical, periventricular and deep white matter hypodensities consistent with mild chronic small vessel ischemic changes.? The mazariegos-white matter junction appears preserved.? There is intracranial internal carotid artery atherosclerosis.? ? Skull and face:? There is right posterior parietal scalp soft tissue swelling with a lobulated small scalp hematoma.? Calvarium and visualized facial bones appear intact, without suspicious lesions.? ? Sinuses:? Visualized sinuses and mastoids are clear.? ? IMPRESSION:? ? 1. Small amount of subdural hematoma along the falx and along the right tentorium as well as minimal left frontal subarachnoid hemorrhage as described.? No midline shift or other mass effect.? Findings discussed with Dr. Culp on 07/30/2022 at 1:21 a.m.. ? 2. Mild cerebral volume loss and chronic white matter small vessel ischemic changes.? ? 3. Right posterior parietal scalp hematoma without evidence of calvarium fracture. ? ? Dictated by: Gigi Russo M.D. on 07/30/2022 at 1:20 ? ? Approved by: Gigi Russo M.D. on 07/30/2022 at 1:27 ? MDM Narrative Medical decision making narrative: [77-year-old male former smoker on anticoagulation with traumatic head injury resulting in subdural and subarachnoid hemorrhage on Eliquis] Multiple etiologies for patient's symptoms considered including, but not limited to: [Subarachnoid, subdural, cervical fracture versus other] Prior Charts reviewed: Multiple prior ED notes Labs reviewed and interpreted by myself: No significant abnormal findings Imaging reviewed: Small subarachnoid and small subdural without midline shift, C-spine cleared prior to departure Consultations: Discussed with on-call radiologist (Dr. Russo), also discussed with emergency physician at [facility] (Dr. Fulton) Patient and understand and agree with diagnosis and plan Critical Care Time Critical Care Time Critical Care Time: Yes Total Critical Care Time: 40 Attestation: Critical Care Time [40] minutes: Critical care time is separate from other billable procedures. This critical care time includes consultation with family and other consulting doctors, review of records, and interpretation of data from labs, EKGs, imaging, etc. Discharge Plan Departure Patient Disposition: [facility] Clinical Impression: Acute subdural hematoma, Subarachnoid bleed Prescriptions: No Action naltrexone hcl 4.5 mg PO DAILY Qty: 90 3RF losartan 100 mg tablet 100 mg PO DAILY Qty: 15 0RF Rx Instructions: NO FUTURE FILLS UNTIL SEEN. PLEASE CALL TO SCHEDULE APPT. THANKS 12/21/21 + 02/04/22. ICaps AREDS2 (copper citrate) 250 mg-200 unit -12.5 mg-1 mg tablet 1 tab PO BID icosapent ethyl 1 gram capsule 2 g PO BID metoprolol succinate 50 mg tablet extended release 24 hr 50 mg PO DAILY Praluent Pen 150 mg/mL pen injector 150 mg SUBCUT Q14D Eliquis 5 mg tablet 5 mg PO BID allopurinol 300 mg tablet 300 mg PO DAILY Qty: 90 3RF acetaminophen 325 mg Tablet 1 dose PO PRN PRN (Reason: pain) aspirin 81 mg Tablet,Delayed Release (Dr/Ec) 81 mg PO DAILY PreserVision AREDS-2 [id number]-ykhw-[id number]-mg Capsule 1 cap PO BID turmeric 1 tab PO DAILY hydrochlorothiazide 25 mg tablet 25 mg PO DAILY carvedilol 12.5 mg tablet 12.5 mg PO DAILY amlodipine 10 mg tablet 10 mg PO DAILY methocarbamol 500 mg tablet 500 mg PO TID Qty: 60 2RF lidocaine 5 % adhesive patch,medicated 1 patch topical DAILY Qty: 30 1RF Rx Instructions: leave on most painful area for 12 hrs (DME) Resmed Airsense 10 CPAP Qty: 1 Rx Instructions: Pressure: 10-18 cmH2O DME: [employer] Referrals: Yunior Atkinson MD [Primary Care Provider] -
--- NOTE | 2022-07-30 00:36 | DI.CT.S_ITS ---
PROCEDURE: CT CERVICAL SPINE WO CON INDICATIONS: Trauma TECHNIQUE: Noncontrast 3 mm thick sections acquired from the skull base to the T4 level. Sagittal and coronal reformats were then constructed. For radiation dose reduction, the following was used: automated exposure control, adjustment of mA and/or kV according to patient size. COMPARISON: None. FINDINGS: Image quality: There is mild motion artifact. Bones: No fractures or subluxation. There is straightening of the cervical lordosis. Extensive multilevel degenerative disc disease and facet joint arthropathy are present. Visualized superior ribs are intact. Soft tissues: Prevertebral soft tissues are normal in thickness. No paravertebral hematomas. No apical pneumothoraces. IMPRESSION: 1. No fracture or subluxation. Dictated by: Gigi Russo M.D. on 07/30/2022 at 1:27 Approved by: Gigi Russo M.D. on 07/30/2022 at 1:29
--- NOTE | 2022-07-30 00:36 | DI.CT.S_ITS ---
PROCEDURE: CT HEAD/BRAIN WO CON INDICATIONS: Trauma TECHNIQUE: Noncontrast 4.5 mm thick angled axial sections acquired from the foramen magnum to the vertex, with coronal and sagittal reformats. For radiation dose reduction, the following was used: automated exposure control, adjustment of mA and/or kV according to patient size. COMPARISON: [facility], CT, CT CERVICAL SPINE WO CON, 07/30/2022, 0:55. [facility], CT, HEAD WITHOUT CONTRAST, 06/17/2008, 14:06. FINDINGS: Image quality: Excellent. CSF spaces: Basal cisterns are patent. There is mild cerebral volume loss, with resultant ventricular and sulcal prominence. Brain: There is a small amount of subdural hemorrhage tracking along the falx anteriorly. A small amount of subdural hemorrhage is also demonstrated layering along the right tentorium. On the left, there is a minimal amount of subarachnoid hemorrhage within a left frontal lobe sulcus along the sylvian fissure as seen on series 2, image 16. No midline shift. No intracranial mass. There are subcortical, periventricular and deep white matter hypodensities consistent with mild chronic small vessel ischemic changes. The mazariegos-white matter junction appears preserved. There is intracranial internal carotid artery atherosclerosis. Skull and face: There is right posterior parietal scalp soft tissue swelling with a lobulated small scalp hematoma. Calvarium and visualized facial bones appear intact, without suspicious lesions. Sinuses: Visualized sinuses and mastoids are clear. IMPRESSION: 1. Small amount of subdural hematoma along the falx and along the right tentorium as well as minimal left frontal subarachnoid hemorrhage as described. No midline shift or other mass effect. Findings discussed with Dr. Culp on 07/30/2022 at 1:21 a.m.. 2. Mild cerebral volume loss and chronic white matter small vessel ischemic changes. 3. Right posterior parietal scalp hematoma without evidence of calvarium fracture. Dictated by: Gigi Russo M.D. on 07/30/2022 at 1:20 Approved by: Gigi Russo M.D. on 07/30/2022 at 1:27
--- NOTE | 2022-07-30 00:36 | DI.CT.S_ITS ---
PROCEDURE: CT CHEST ABD PEL W CON INDICATIONS: Trauma TECHNIQUE: After the administration of intravenous contrast, 5 mm thick sections acquired from the lung apices to the symphysis. 2.5 mm thick coronal and sagittal reformats were acquired. Additional 7 mm thick coronal maximum intensity projection (MIP) reformats acquired through the lungs. Optional 10-minute delayed imaging may be performed from the kidneys to the bladder. For radiation dose reduction, the following was used: automated exposure control, adjustment of mA and/or kV according to patient size. COMPARISON: [facility], CT, CT ABDOMEN PELVIS W CON, 08/12/2018, 14:18. FINDINGS: Image quality: There is metallic streak artifact from patient's bilateral hip prostheses. CHEST: Lower Neck: No lymphadenopathy by size criteria. Thyroid: Visualized thyroid demonstrates no discrete nodules. Axillae: No lymphadenopathy by size criteria. Chest Wall: Unremarkable. Lungs and Airways: No pulmonary contusions or lacerations. There is mild dependent atelectasis bilaterally. The trachea and central airways are patent. Pleura: No pneumothorax or pleural effusions. Heart: Heart size is normal. No pericardial effusion. Thoracic Vessels: The aorta and pulmonary arteries are normal in size. Mediastinum and Alanna: No lymphadenopathy by size criteria. No definite mediastinal hematomas. Esophagus: No wall thickening. No hiatal hernia. ABDOMEN: Liver: No hepatic lacerations or perihepatic fluid collections. There is hypoattenuation of the liver consistent with fatty infiltration. Gallbladder: Within normal limits without calcified gallstones. Biliary ducts: No biliary ductal dilatation. Pancreas: There is mild fatty atrophy of the pancreas. Spleen: Normal in size. No splenic lacerations or perisplenic fluid collections. A few scattered punctate calcifications within the spleen are consistent sequelae of old granulomas disease. Adrenal Glands: No adrenal nodules. Kidneys and Ureters: No hydronephrosis. Multiple, at least 12, nonobstructing stones are demonstrated within the right kidney with the largest measuring up to 0.5 cm and demonstrating attenuation values of approximately 500-600 Hounsfield units. On the left, there are at least 9 nonobstructing stones with the largest measuring up to 0.7 cm with attenuation values of approximately 500-600 Hounsfield units. There are few left renal cysts. There is focal renal cortical thinning in the right kidney consistent with sequelae of prior trauma, infection, or infarct. Stomach and Bowel: Stomach, small bowel loops, and colon are normal in caliber and wall thickness. No pericecal inflammatory changes to suggest appendicitis. Peritoneum: No abnormal intraperitoneal fluid. No free air. Ventral Wall: No hernia. Abdominal Nodes: No retroperitoneal or mesenteric adenopathy by size criteria. Vessels: Aorta and inferior vena cava are normal in size. PELVIS: Pelvic Organs: Unremarkable. Bladder: Unremarkable. Pelvic Nodes: No enlarged lymph nodes. Miscellaneous: No inguinal hernias are seen. Bones: No acute displaced fractures identified. There is a suspected mild buckle fracture of the left 7th rib anterolaterally. Visualized osseous structures demonstrate no suspicious focal lesions. IMPRESSION: 1. Suspected mild wall buckle fracture of the left anterolateral 7th rib. No displaced fracture identified. 2. Elsewhere, no definite acute traumatic abnormality in the chest, abdomen, or pelvis. 3. Bilateral nephrolithiasis without evidence of obstructive uropathy. Dictated by: Gigi Russo M.D. on 07/30/2022 at 2:06 Approved by: Gigi Russo M.D. on 07/30/2022 at 2:14
[2022-07-30 00:47] LABS: Add Manual Diff / Slide Review NO; Basophils Absolute Auto 0 /uL (0-100); Basophils Percent Auto 0.3 % (0-2); Eosinophils Absolute Auto 0 /uL (0-450); Eosinophils Percent Auto 0.1 % (2-4); Hematocrit 45.9 % (41-53); Hemoglobin 15.5 g/dL (13.5-17.5); Lymphocytes Absolute Auto 1100 /uL (1100-4500); Lymphocytes Percent Auto 8.3 % (25-40); Mean Corpuscular HGB Conc 33.8 % (30-36); Mean Corpuscular Hemoglobin 33.6 PG (26-34); Mean Corpuscular Volume 99.4 fL (80-100); Monocytes Absolute Auto 400 /uL (0-900); Monocytes Percent Auto 3.1 % (3-14); Neutrophils Absolute Auto 11800 /uL (1500-7000); Neutrophils Percent Auto 88.2 % (50-75); Platelet Count 201 X10^3/uL (150-400); Red Blood Cell Count 4.61 X10^6/uL (4.5-5.9); Red Cell Distribution Width 14.1 % (11.6-14.8); White Blood Cell Count 13.4 X10^3/uL (4.5-11.0)
[2022-07-30 00:50] LABS: Lactate (Lactic Acid) 1.8 mmol/L (0.7-2.1)
[2022-07-30 00:53] LABS: Alanine Aminotransferase 49 IU/L (<50); Albumin 4.4 g/dL (3.5-5.0); Albumin Globulin Ratio 1.1 (1.0-2.8); Alkaline Phosphatase 68 U/L (38-126); Aspartate Aminotransferase 39 IU/L (17-59); BUN Creatinine Ratio 64.6 (6-22); Bilirubin Total 0.6 mg/dL (0.2-1.3); Blood Urea Nitrogen 51 mg/dL (9-20); Calcium 9.6 mg/dL (8.4-10.2); Carbon Dioxide 19 mmol/L (22-32); Chloride 107 mmol/L (98-107); Estimated Glomerular Filt Rate > 60 mL/min (>60); Ethanol (ETOH) < 10 mg/dL; Glucose 190 mg/dL (80-110); HEMOLYSIS 31 (0-50); Lipase 99 U/L (23-300); Potassium 4.6 mmol/L (3.4-5.1); Sodium 142 mmol/L (137-145); Total Protein 8.4 g/dL (6.3-8.2)
[2022-07-30 01:48] LABS: INR 1.5 (0.9-1.3); PTT Partial Thromboplastin Tim 37 SECONDS (26-36); Prothrombin Time 17.4 SECONDS (10.1-12.7)
[2022-07-30 01:53] LABS: COVID19 -Nasal RAPID Negative (Negative)
--- NOTE | 2022-07-30 01:54 | PC.NURSE ---
0130: Pt head of bed at 30 degrees per provider request.
[2022-07-30 02:20] LABS: UR Morphine/Opiate cutoff 300 Negative (Negative); Ur Creatinine Normal (Normal); Ur Specific Gravity Normal (Normal); Urine Amphetamines Negative (Negative); Urine Barbiturates Negative (Negative); Urine Benzodiazepines Negative (Negative); Urine Cocaine Negative (Negative); Urine MDMA Negative (Negative); Urine Methadone Negative (Negative); Urine Methamphetamines Negative (Negative); Urine Oxycodone Negative (Negative); Urine Phencyclidine Negative (Negative); Urine Tetrahydrocannabinol Negative (Negative); Urine Tricyclic Antidepressant Negative (Negative); Urine pH Normal (Normal)
--- NOTE | 2022-07-30 02:46 | PC.NURSE ---
0130: Pt upgraded to full trauma.
== END 2022-07-30 02:38 | disposition short-term general hospital (02) ==
PROVIDERS: Emergency Provider Emergency Medicine; Family Provider Student in an Organized Health Care Education/Training Program; PCP Student in an Organized Health Care Education/Training Program
DX: S06.5XAA Traumatic subdural hemorrhage with loss of consciousness status unknown, initial encounter (principal); S06.6XAA Traumatic subarachnoid hemorrhage with loss of consciousness status unknown, initial encounter; W10.9XXA Fall (on) (from) unspecified stairs and steps, initial encounter; Z79.01 Long term (current) use of anticoagulants
CPT/HCPCS: 36415; 70450; 71260; 72125; 74177; 80053; 80305; 80320; 82962; 83605; 83690; 85025; 85610; 85730; 86850; 86900; 86901; 87635; 93005; 99291; 99292; C9803; Q9967

== ENCOUNTER 2022-07-30 12:00 | Inpatient (IN) | payer MEDICARE, OTHER, SELFPAY ==
[2022-07-30] VITALS (116 sets, daily range): BP systolic 81–137; BP diastolic 51–77; PULSE 72–126; RESP 12–41; TEMP 36.4; O2SAT 87–98; BMI 28.7
--- NOTE | 2022-07-30 11:59 | ED_ITS ---
HPI - General Adult <Kimani Luque MD - Last Filed: 07/30/22 20:07> General Chief complaint: Fall Stated complaint: Recent subdural,increased weakness,unequal pupils Time Seen by Provider: 07/30/22 12:15 History of Present Illness HPI narrative: 77 year old male presenting with concern for increased weakness and right eye blurriness in the setting of recently diagnosed subarachnoid and subdural hematoma. Patient was recent evaluate this emergency department, identified to have SDH and SAH, transferred to [facility], repeat scan showed stable exam, patient was discharged. On discharging, patient had blurriness of the right eye and some pain at this location, patient was administered multiple doses of opiate based pain medications, on arriving back home, patient had difficulty ambulating due to generalized weakness, noted to have right eye that is more dilated than normal, and had low blood pressure on EMS arrival. On presentation, patient alert interactive, answering questions appropriately, reports persistent headache, denies focal weakness in the upper or lower extremities. Related Data Home Medications Medication Instructions Recorded Confirmed acetaminophen 325 mg tablet 1 dose PO PRN PRN pain 08/12/18 06/25/22 aspirin 81 mg tablet,delayed 81 mg PO DAILY 08/12/18 06/25/22 release turmeric 1 tab PO DAILY 08/12/18 06/25/22 vit C 250 mg-vit E 90 mg-zinc 40 1 cap PO BID 08/12/18 06/25/22 mg-copper 1 [id number] capsule (PreserVision AREDS-2) Resmed Airsense 10 CPAP #1 ea 04/29/19 06/25/22 vit C 250 mg-vit E 200 unit-zinc 1 tab PO BID 10/04/20 06/25/22 12.5 mg-copper 1 [id number] tablet (ICaps AREDS2 (copper citrate)) alirocumab 150 mg/mL subcutaneous 150 mg SUBCUT Q14D 04/03/22 06/25/22 pen injector (Praluent Pen) apixaban 5 mg tablet (Eliquis) 5 mg PO BID 04/03/22 06/25/22 icosapent ethyl 1 gram capsule 2 g PO BID 04/03/22 06/25/22 metoprolol succinate 50 mg 50 mg PO DAILY 04/03/22 06/25/22 tablet,extended release 24 hr amlodipine 10 mg tablet 10 mg PO DAILY 05/20/22 06/25/22 carvedilol 12.5 mg tablet 12.5 mg PO DAILY 05/20/22 06/25/22 hydrochlorothiazide 25 mg tablet 25 mg PO DAILY 05/20/22 06/25/22 Previous Rx's Medication Instructions Recorded naltrexone hcl 4.5 mg PO DAILY #90 caps 08/29/21 losartan 100 mg tablet 100 mg PO DAILY #15 tabs 02/04/22 allopurinol 300 mg tablet 300 mg PO DAILY #90 tabs 04/03/22 methocarbamol 500 mg tablet 500 mg PO TID #60 tabs 05/20/22 lidocaine 5 % topical patch 1 patch topical DAILY #30 ea 06/25/22 Allergies Allergy/AdvReac Type Severity Reaction Status Date / Time prednisone Allergy Severe Confusion Verified 07/30/22 12:16 celecoxib [From Celebrex] Allergy Intermediate Gastrointestinal Verified 07/30/22 12:16 Upset oxycodone [From Percocet] Allergy Intermediate Nausea Verified 07/30/22 12:16 Tceapty-UEA-MhJ Reductase AdvReac Severe Autoimmune Verified 07/30/22 12:16 Inhibitor myositis [Ooahral-Pnh-Kya Reductase Inhibitor] codeine AdvReac Mild Redness of Verified 07/30/22 12:16 Skin <Mariano Culp DO - Last Filed: 07/31/22 00:52> Review of Systems Narrative: GENERAL: See HPI HEENT: See HPI RESPIRATORY: Denies dyspnea, cough, wheezing, hemoptysis, sputum. CARDIOVASCULAR: Denies chest pain, palpitations, orthopnea, edema, GASTROINTESTINAL: Denies nausea, vomiting, abdominal pain, diarrhea, constipation, melena. : Denies dysuria, frequency, incontinence, hematuria, urinary retention. MUSCULOSKELETAL: denies weakness, joint pain, or bony pain SKIN: Denies rash, skin lesions, or other NEUROLOGIC: See HPI. PSYCHIATRIC: No concerning psychosocial issues. 12 point review of systems is negative except for those stated above Patient History <Kimani Luque MD - Last Filed: 07/30/22 20:07> Medical History Coronary artery disease Hyperlipidemia Hypertension Kidney stones Low back pain Shoulder pain Surgical History H/O lithotripsy Hx of appendectomy Social History Smoking Status: Former smoker Exam <Kimani Luque MD - Last Filed: 07/30/22 20:07> Narrative Exam Narrative: Vitals reviewed. Nursing note reviewed Constitutional: interactive HENT: Moist mucous membranes EYES: Right extra ocular movements are diminished, patient with intact lateral gaze, case does not cross the midline, no significant upward/inferior/medial gaze, right pupil is dilated and minimally reactive at approximately 8 mm, left pupil is 2-3 mm and reactive, extraocular movements are intact on the left, right pupil droops over the eye NECK: no masses CV: Well perfused peripherally, no cyanosis present PULM: Unlabored respirations, symmetric chest rise ABD: Non-distended MS: No gross deformities, no asymmetric edema noted SKIN: Warm and dry. PSYCH: Appropriate affect NEURO: Follows simple commands, moves extremities, interactive with exam, symmetric strength and sensation in bilateral upper and lower extremities, Initial Vital Signs Initial Vital Signs: Vital Signs Temperature 97.6 F 07/30/22 11:55 Pulse Rate 76 07/30/22 11:55 Respiratory Rate 16 07/30/22 11:55 Blood Pressure 98/62 07/30/22 11:55 Pulse Oximetry 93 07/30/22 11:55 Oxygen Delivery Method 07/30/22 11:55 <Mariano Culp DO - Last Filed: 07/31/22 00:52> Initial Vital Signs Initial Vital Signs: Vital Signs Temperature 97.6 F 07/30/22 11:55 Pulse Rate 76 07/30/22 11:55 Respiratory Rate 16 07/30/22 11:55 Blood Pressure 98/62 07/30/22 11:55 Pulse Oximetry 93 07/30/22 11:55 Oxygen Delivery Method 07/30/22 11:55 Course <Kimani Luque MD - Last Filed: 07/30/22 20:07> Orders Ordered: ED Orders 07/30/22 20:00 BMP [Basic Metabolic Panel] Stat CBC Auto Diff [Complete Blood Count AUTO DIFF] Stat 07/30/22 20:20 Creatinine Urine Random Stat Sodium Urine Random Stat 07/30/22 20:30 Ictotest Urine Stat UA Complete [Urinalysis and Microscopic] Stat 07/30/22 20:52 US renal complete Stat Discontinued Medications Acetaminophen (Acetaminophen 325 Mg Tablet) 650 mg PO NOW ONE Stop: 07/30/22 16:40 Last Admin: 07/30/22 16:46 Dose: 650 mg Documented By: ALEXSANDRA Prothrombin Complex Concent ( Human) 2,500 unit/Miscellaneous 100 mls @ 751.147 mls/hr IV NOW ONE Stop: 07/30/22 12:52 Last Infusion: 07/30/22 13:11 Dose: 0 unit/kg/min, 0 mls/hr Documented By: ROSA MARIA Admin: 07/30/22 12:50 Dose: 3 unit/kg/min, 751.147 mls/hr Documented By: ROSA MARIA Sodium Chloride (Normal Saline 0.9%) 1,000 mls @ 1,000 mls/hr IV BOLUS ONE Stop: 07/30/22 15:39 Last Infusion: 07/30/22 16:18 Dose: 0 mls/hr Documented By: ROSA MARIA Admin: 07/30/22 14:42 Dose: 1,000 mls/hr Documented By: ROSA MARIA Sodium Chloride (Normal Saline 0.9%) 1,000 mls @ 1,000 mls/hr IV BOLUS ONE Stop: 07/30/22 17:38 Last Infusion: 07/30/22 17:51 Dose: 0 mls/hr Documented By: Admin: 07/30/22 16:47 Dose: 1,000 mls/hr Documented By: ALEXSANDRA Lactated Ringer's (Lactated Ringers) 1,000 mls @ 1,000 mls/hr IV BOLUS ONE Stop: 07/30/22 23:25 Last Infusion: 07/30/22 23:44 Dose: 0 mls/hr Documented By: Admin: 07/30/22 22:37 Dose: 1,000 mls/hr Documented By: ALEXSANDRA Proparacaine HCl (Proparacaine 0.5% Ophth Oriana) 1 drops EYE-RIGHT NOW ONE Stop: 07/30/22 12:41 Last Admin: 07/30/22 12:43 Dose: 1 drop Documented By: ROSA MARIA Vital Signs Vital signs: Vital Signs - 8 hr 07/30/22 16:50 07/30/22 16:50 07/30/22 17:00 Pulse Rate 84 82 Pulse Rate [Orthostatic Lying] Pulse Rate [Orthostatic Sitting] Pulse Rate [Orthostatic Standing] Respiratory Rate 20 16 Blood Pressure 98/61 Blood Pressure [Orthostatic Lying] Blood Pressure [Orthostatic Sitting] Blood Pressure [Orthostatic Standing] Pulse Oximetry 95 94 Oxygen Delivery Method Oxygen Flow Rate 07/30/22 17:02 07/30/22 17:02 07/30/22 17:10 Pulse Rate 81 81 Pulse Rate [Orthostatic Lying] Pulse Rate [Orthostatic Sitting] Pulse Rate [Orthostatic Standing] Respiratory Rate 20 19 Blood Pressure 103/59 L Blood Pressure [Orthostatic Lying] Blood Pressure [Orthostatic Sitting] Blood Pressure [Orthostatic Standing] Pulse Oximetry 94 96 Oxygen Delivery Method Oxygen Flow Rate 07/30/22 17:13 07/30/22 17:13 07/30/22 17:16 Pulse Rate 80 79 Pulse Rate [Orthostatic Lying] Pulse Rate [Orthostatic Sitting] Pulse Rate [Orthostatic Standing] Respiratory Rate 17 22 Blood Pressure 93/55 L Blood Pressure [Orthostatic Lying] Blood Pressure [Orthostatic Sitting] Blood Pressure [Orthostatic Standing] Pulse Oximetry 95 94 Oxygen Delivery Method Oxygen Flow Rate 07/30/22 17:16 07/30/22 17:20 07/30/22 17:20 Pulse Rate 78 Pulse Rate [Orthostatic Lying] Pulse Rate [Orthostatic Sitting] Pulse Rate [Orthostatic Standing] Respiratory Rate 16 Blood Pressure 101/61 101/64 Blood Pressure [Orthostatic Lying] Blood Pressure [Orthostatic Sitting] Blood Pressure [Orthostatic Standing] Pulse Oximetry 91 Oxygen Delivery Method Oxygen Flow Rate 07/30/22 17:25 07/30/22 17:25 07/30/22 17:30 Pulse Rate 79 Pulse Rate [Orthostatic Lying] Pulse Rate [Orthostatic Sitting] Pulse Rate [Orthostatic Standing] Respiratory Rate 17 Blood Pressure 103/63 106/66 Blood Pressure [Orthostatic Lying] Blood Pressure [Orthostatic Sitting] Blood Pressure [Orthostatic Standing] Pulse Oximetry 91 Oxygen Delivery Method Oxygen Flow Rate 07/30/22 17:30 07/30/22 17:35 07/30/22 17:35 Pulse Rate 79 79 Pulse Rate [Orthostatic Lying] Pulse Rate [Orthostatic Sitting] Pulse Rate [Orthostatic Standing] Respiratory Rate 17 17 Blood Pressure 112/69 Blood Pressure [Orthostatic Lying] Blood Pressure [Orthostatic Sitting] Blood Pressure [Orthostatic Standing] Pulse Oximetry 91 94 Oxygen Delivery Method Oxygen Flow Rate 07/30/22 17:40 07/30/22 17:40 07/30/22 17:45 Pulse Rate 78 80 Pulse Rate [Orthostatic Lying] Pulse Rate [Orthostatic Sitting] Pulse Rate [Orthostatic Standing] Respiratory Rate 16 23 Blood Pressure 118/70 Blood Pressure [Orthostatic Lying] Blood Pressure [Orthostatic Sitting] Blood Pressure [Orthostatic Standing] Pulse Oximetry 91 93 Oxygen Delivery Method Oxygen Flow Rate 07/30/22 17:45 07/30/22 17:50 07/30/22 17:50 Pulse Rate 77 Pulse Rate [Orthostatic Lying] Pulse Rate [Orthostatic Sitting] Pulse Rate [Orthostatic Standing] Respiratory Rate 17 Blood Pressure 109/61 101/60 Blood Pressure [Orthostatic Lying] Blood Pressure [Orthostatic Sitting] Blood Pressure [Orthostatic Standing] Pulse Oximetry 93 Oxygen Delivery Method Oxygen Flow Rate 07/30/22 18:33 07/30/22 17:55 07/30/22 17:55 Pulse Rate 76 Pulse Rate [Orthostatic Lying] 80 Pulse Rate [Orthostatic Sitting] 95 H Pulse Rate [Orthostatic Standing] 99 H Respiratory Rate 16 Blood Pressure 101/59 L Blood Pressure [Orthostatic Lying] 129/66 Blood Pressure [Orthostatic Sitting] 109/55 L Blood Pressure [Orthostatic Standing] 92/54 L Pulse Oximetry 91 Oxygen Delivery Method Oxygen Flow Rate 07/30/22 18:00 07/30/22 18:09 07/30/22 18:09 Pulse Rate 77 78 Pulse Rate [Orthostatic Lying] Pulse Rate [Orthostatic Sitting] Pulse Rate [Orthostatic Standing] Respiratory Rate 17 16 Blood Pressure 122/68 Blood Pressure [Orthostatic Lying] Blood Pressure [Orthostatic Sitting] Blood Pressure [Orthostatic Standing] Pulse Oximetry 93 Oxygen Delivery Method Oxygen Flow Rate 07/30/22 18:10 07/30/22 18:10 07/30/22 18:15 Pulse Rate 78 Pulse Rate [Orthostatic Lying] Pulse Rate [Orthostatic Sitting] Pulse Rate [Orthostatic Standing] Respiratory Rate 17 Blood Pressure 129/66 109/55 L Blood Pressure [Orthostatic Lying] Blood Pressure [Orthostatic Sitting] Blood Pressure [Orthostatic Standing] Pulse Oximetry 95 Oxygen Delivery Method Oxygen Flow Rate 07/30/22 18:15 07/30/22 18:17 07/30/22 18:17 Pulse Rate 93 H 98 H Pulse Rate [Orthostatic Lying] Pulse Rate [Orthostatic Sitting] Pulse Rate [Orthostatic Standing] Respiratory Rate 20 22 Blood Pressure 92/54 L Blood Pressure [Orthostatic Lying] Blood Pressure [Orthostatic Sitting] Blood Pressure [Orthostatic Standing] Pulse Oximetry 97 Oxygen Delivery Method Oxygen Flow Rate 07/30/22 18:24 07/30/22 18:24 07/30/22 18:30 Pulse Rate 101 H 83 Pulse Rate [Orthostatic Lying] Pulse Rate [Orthostatic Sitting] Pulse Rate [Orthostatic Standing] Respiratory Rate 21 Blood Pressure 127/73 Blood Pressure [Orthostatic Lying] Blood Pressure [Orthostatic Sitting] Blood Pressure [Orthostatic Standing] Pulse Oximetry 98 97 Oxygen Delivery Method Oxygen Flow Rate 07/30/22 18:35 07/30/22 18:40 07/30/22 18:45 Pulse Rate 87 84 82 Pulse Rate [Orthostatic Lying] Pulse Rate [Orthostatic Sitting] Pulse Rate [Orthostatic Standing] Respiratory Rate 24 18 20 Blood Pressure Blood Pressure [Orthostatic Lying] Blood Pressure [Orthostatic Sitting] Blood Pressure [Orthostatic Standing] Pulse Oximetry 94 94 92 Oxygen Delivery Method Oxygen Flow Rate 07/30/22 18:50 07/30/22 18:55 07/30/22 18:55 Pulse Rate 81 81 Pulse Rate [Orthostatic Lying] Pulse Rate [Orthostatic Sitting] Pulse Rate [Orthostatic Standing] Respiratory Rate 22 19 Blood Pressure 101/62 Blood Pressure [Orthostatic Lying] Blood Pressure [Orthostatic Sitting] Blood Pressure [Orthostatic Standing] Pulse Oximetry 91 94 Oxygen Delivery Method Oxygen Flow Rate 07/30/22 19:00 07/30/22 19:00 07/30/22 19:05 Pulse Rate 80 Pulse Rate [Orthostatic Lying] Pulse Rate [Orthostatic Sitting] Pulse Rate [Orthostatic Standing] Respiratory Rate 18 Blood Pressure 108/61 106/61 Blood Pressure [Orthostatic Lying] Blood Pressure [Orthostatic Sitting] Blood Pressure [Orthostatic Standing] Pulse Oximetry 91 Oxygen Delivery Method Oxygen Flow Rate 07/30/22 19:05 07/30/22 19:10 07/30/22 19:10 Pulse Rate 80 79 Pulse Rate [Orthostatic Lying] Pulse Rate [Orthostatic Sitting] Pulse Rate [Orthostatic Standing] Respiratory Rate 20 18 Blood Pressure 108/61 Blood Pressure [Orthostatic Lying] Blood Pressure [Orthostatic Sitting] Blood Pressure [Orthostatic Standing] Pulse Oximetry 94 Oxygen Delivery Method Oxygen Flow Rate 07/30/22 19:15 07/30/22 19:15 07/30/22 19:20 Pulse Rate 80 Pulse Rate [Orthostatic Lying] Pulse Rate [Orthostatic Sitting] Pulse Rate [Orthostatic Standing] Respiratory Rate 18 Blood Pressure 107/58 L 108/59 L Blood Pressure [Orthostatic Lying] Blood Pressure [Orthostatic Sitting] Blood Pressure [Orthostatic Standing] Pulse Oximetry 91 Oxygen Delivery Method Oxygen Flow Rate 07/30/22 19:20 07/30/22 19:25 07/30/22 19:25 Pulse Rate 79 79 Pulse Rate [Orthostatic Lying] Pulse Rate [Orthostatic Sitting] Pulse Rate [Orthostatic Standing] Respiratory Rate 18 17 Blood Pressure 112/61 Blood Pressure [Orthostatic Lying] Blood Pressure [Orthostatic Sitting] Blood Pressure [Orthostatic Standing] Pulse Oximetry 91 Oxygen Delivery Method Oxygen Flow Rate 07/30/22 19:30 07/30/22 19:30 07/30/22 19:35 Pulse Rate 78 Pulse Rate [Orthostatic Lying] Pulse Rate [Orthostatic Sitting] Pulse Rate [Orthostatic Standing] Respiratory Rate 18 Blood Pressure 117/58 L 109/59 L Blood Pressure [Orthostatic Lying] Blood Pressure [Orthostatic Sitting] Blood Pressure [Orthostatic Standing] Pulse Oximetry 91 Oxygen Delivery Method Oxygen Flow Rate 07/30/22 19:35 07/30/22 19:40 07/30/22 19:40 Pulse Rate 80 85 Pulse Rate [Orthostatic Lying] Pulse Rate [Orthostatic Sitting] Pulse Rate [Orthostatic Standing] Respiratory Rate 18 16 Blood Pressure 116/55 L Blood Pressure [Orthostatic Lying] Blood Pressure [Orthostatic Sitting] Blood Pressure [Orthostatic Standing] Pulse Oximetry 91 93 Oxygen Delivery Method Oxygen Flow Rate 07/30/22 19:45 07/30/22 19:45 07/30/22 19:50 Pulse Rate 79 Pulse Rate [Orthostatic Lying] Pulse Rate [Orthostatic Sitting] Pulse Rate [Orthostatic Standing] Respiratory Rate 18 Blood Pressure 119/58 L 109/56 L Blood Pressure [Orthostatic Lying] Blood Pressure [Orthostatic Sitting] Blood Pressure [Orthostatic Standing] Pulse Oximetry 91 Oxygen Delivery Method Oxygen Flow Rate 07/30/22 19:50 07/30/22 19:55 07/30/22 19:55 Pulse Rate 79 78 Pulse Rate [Orthostatic Lying] Pulse Rate [Orthostatic Sitting] Pulse Rate [Orthostatic Standing] Respiratory Rate 18 23 Blood Pressure 107/59 L Blood Pressure [Orthostatic Lying] Blood Pressure [Orthostatic Sitting] Blood Pressure [Orthostatic Standing] Pulse Oximetry 91 93 Oxygen Delivery Method Oxygen Flow Rate 07/30/22 20:00 07/30/22 20:00 07/30/22 20:05 Pulse Rate 96 H Pulse Rate [Orthostatic Lying] Pulse Rate [Orthostatic Sitting] Pulse Rate [Orthostatic Standing] Respiratory Rate Blood Pressure 118/56 L 111/54 L Blood Pressure [Orthostatic Lying] Blood Pressure [Orthostatic Sitting] Blood Pressure [Orthostatic Standing] Pulse Oximetry 94 Oxygen Delivery Method Oxygen Flow Rate 07/30/22 20:05 07/30/22 20:10 07/30/22 20:10 Pulse Rate 87 90 Pulse Rate [Orthostatic Lying] Pulse Rate [Orthostatic Sitting] Pulse Rate [Orthostatic Standing] Respiratory Rate 22 23 Blood Pressure 109/57 L Blood Pressure [Orthostatic Lying] Blood Pressure [Orthostatic Sitting] Blood Pressure [Orthostatic Standing] Pulse Oximetry 96 94 Oxygen Delivery Method Oxygen Flow Rate 07/30/22 20:20 07/30/22 20:21 07/30/22 20:21 Pulse Rate 99 H 97 H Pulse Rate [Orthostatic Lying] Pulse Rate [Orthostatic Sitting] Pulse Rate [Orthostatic Standing] Respiratory Rate Blood Pressure 98/77 Blood Pressure [Orthostatic Lying] Blood Pressure [Orthostatic Sitting] Blood Pressure [Orthostatic Standing] Pulse Oximetry Oxygen Delivery Method Oxygen Flow Rate 07/30/22 20:29 07/30/22 20:29 07/30/22 20:30 Pulse Rate 90 Pulse Rate [Orthostatic Lying] Pulse Rate [Orthostatic Sitting] Pulse Rate [Orthostatic Standing] Respiratory Rate 24 Blood Pressure 121/63 114/57 L Blood Pressure [Orthostatic Lying] Blood Pressure [Orthostatic Sitting] Blood Pressure [Orthostatic Standing] Pulse Oximetry 98 Oxygen Delivery Method Oxygen Flow Rate 07/30/22 20:30 07/30/22 20:35 07/30/22 20:35 Pulse Rate 87 84 Pulse Rate [Orthostatic Lying] Pulse Rate [Orthostatic Sitting] Pulse Rate [Orthostatic Standing] Respiratory Rate 21 19 Blood Pressure 99/53 L Blood Pressure [Orthostatic Lying] Blood Pressure [Orthostatic Sitting] Blood Pressure [Orthostatic Standing] Pulse Oximetry 97 92 Oxygen Delivery Method Oxygen Flow Rate 07/30/22 20:40 07/30/22 20:40 07/30/22 20:45 Pulse Rate 83 Pulse Rate [Orthostatic Lying] Pulse Rate [Orthostatic Sitting] Pulse Rate [Orthostatic Standing] Respiratory Rate 19 Blood Pressure 81/51 L 84/53 L Blood Pressure [Orthostatic Lying] Blood Pressure [Orthostatic Sitting] Blood Pressure [Orthostatic Standing] Pulse Oximetry 91 Oxygen Delivery Method Oxygen Flow Rate 07/30/22 20:45 07/30/22 20:49 07/30/22 20:49 Pulse Rate 85 83 Pulse Rate [Orthostatic Lying] Pulse Rate [Orthostatic Sitting] Pulse Rate [Orthostatic Standing] Respiratory Rate 17 21 Blood Pressure 86/55 L Blood Pressure [Orthostatic Lying] Blood Pressure [Orthostatic Sitting] Blood Pressure [Orthostatic Standing] Pulse Oximetry 93 Oxygen Delivery Method Oxygen Flow Rate 07/30/22 20:50 07/30/22 20:50 07/30/22 20:55 Pulse Rate 84 Pulse Rate [Orthostatic Lying] Pulse Rate [Orthostatic Sitting] Pulse Rate [Orthostatic Standing] Respiratory Rate 20 Blood Pressure 93/56 L 91/53 L Blood Pressure [Orthostatic Lying] Blood Pressure [Orthostatic Sitting] Blood Pressure [Orthostatic Standing] Pulse Oximetry 90 L Oxygen Delivery Method Nasal Cannula Oxygen Flow Rate 2 07/30/22 20:55 07/30/22 21:00 07/30/22 21:00 Pulse Rate 82 79 Pulse Rate [Orthostatic Lying] Pulse Rate [Orthostatic Sitting] Pulse Rate [Orthostatic Standing] Respiratory Rate 16 18 Blood Pressure 100/59 L Blood Pressure [Orthostatic Lying] Blood Pressure [Orthostatic Sitting] Blood Pressure [Orthostatic Standing] Pulse Oximetry 96 94 Oxygen Delivery Method Nasal Cannula Oxygen Flow Rate 2 07/30/22 21:05 07/30/22 21:05 07/30/22 21:10 Pulse Rate 80 Pulse Rate [Orthostatic Lying] Pulse Rate [Orthostatic Sitting] Pulse Rate [Orthostatic Standing] Respiratory Rate 18 Blood Pressure 102/58 L 103/57 L Blood Pressure [Orthostatic Lying] Blood Pressure [Orthostatic Sitting] Blood Pressure [Orthostatic Standing] Pulse Oximetry 94 Oxygen Delivery Method Oxygen Flow Rate 07/30/22 21:10 07/30/22 21:15 07/30/22 21:15 Pulse Rate 81 77 Pulse Rate [Orthostatic Lying] Pulse Rate [Orthostatic Sitting] Pulse Rate [Orthostatic Standing] Respiratory Rate 16 17 Blood Pressure 109/56 L Blood Pressure [Orthostatic Lying] Blood Pressure [Orthostatic Sitting] Blood Pressure [Orthostatic Standing] Pulse Oximetry 93 93 Oxygen Delivery Method Oxygen Flow Rate 07/30/22 21:20 07/30/22 21:20 07/30/22 21:25 Pulse Rate 77 Pulse Rate [Orthostatic Lying] Pulse Rate [Orthostatic Sitting] Pulse Rate [Orthostatic Standing] Respiratory Rate 19 Blood Pressure 113/58 L 113/55 L Blood Pressure [Orthostatic Lying] Blood Pressure [Orthostatic Sitting] Blood Pressure [Orthostatic Standing] Pulse Oximetry 95 Oxygen Delivery Method Oxygen Flow Rate 07/30/22 21:25 07/30/22 21:30 07/30/22 21:30 Pulse Rate 77 78 Pulse Rate [Orthostatic Lying] Pulse Rate [Orthostatic Sitting] Pulse Rate [Orthostatic Standing] Respiratory Rate 18 18 Blood Pressure 118/60 Blood Pressure [Orthostatic Lying] Blood Pressure [Orthostatic Sitting] Blood Pressure [Orthostatic Standing] Pulse Oximetry 95 93 Oxygen Delivery Method Oxygen Flow Rate 07/30/22 21:35 07/30/22 21:35 07/30/22 21:40 Pulse Rate 91 H Pulse Rate [Orthostatic Lying] Pulse Rate [Orthostatic Sitting] Pulse Rate [Orthostatic Standing] Respiratory Rate 32 H Blood Pressure 119/63 120/67 Blood Pressure [Orthostatic Lying] Blood Pressure [Orthostatic Sitting] Blood Pressure [Orthostatic Standing] Pulse Oximetry 94 Oxygen Delivery Method Oxygen Flow Rate 07/30/22 21:40 07/30/22 21:45 07/30/22 21:50 Pulse Rate 90 90 Pulse Rate [Orthostatic Lying] Pulse Rate [Orthostatic Sitting] Pulse Rate [Orthostatic Standing] Respiratory Rate 23 35 H Blood Pressure 127/64 Blood Pressure [Orthostatic Lying] Blood Pressure [Orthostatic Sitting] Blood Pressure [Orthostatic Standing] Pulse Oximetry 97 93 Oxygen Delivery Method Oxygen Flow Rate 07/30/22 21:50 07/30/22 21:55 07/30/22 22:00 Pulse Rate 83 84 Pulse Rate [Orthostatic Lying] Pulse Rate [Orthostatic Sitting] Pulse Rate [Orthostatic Standing] Respiratory Rate 23 30 H Blood Pressure 107/59 L Blood Pressure [Orthostatic Lying] Blood Pressure [Orthostatic Sitting] Blood Pressure [Orthostatic Standing] Pulse Oximetry 96 92 Oxygen Delivery Method Oxygen Flow Rate 07/30/22 22:00 07/30/22 22:05 07/30/22 22:05 Pulse Rate 88 80 Pulse Rate [Orthostatic Lying] Pulse Rate [Orthostatic Sitting] Pulse Rate [Orthostatic Standing] Respiratory Rate 22 18 Blood Pressure 108/52 L Blood Pressure [Orthostatic Lying] Blood Pressure [Orthostatic Sitting] Blood Pressure [Orthostatic Standing] Pulse Oximetry 95 95 Oxygen Delivery Method Oxygen Flow Rate 07/30/22 22:10 07/30/22 22:10 07/30/22 22:15 Pulse Rate 82 Pulse Rate [Orthostatic Lying] Pulse Rate [Orthostatic Sitting] Pulse Rate [Orthostatic Standing] Respiratory Rate 21 Blood Pressure 110/52 L 137/66 Blood Pressure [Orthostatic Lying] Blood Pressure [Orthostatic Sitting] Blood Pressure [Orthostatic Standing] Pulse Oximetry 96 Oxygen Delivery Method Oxygen Flow Rate 07/30/22 22:15 07/30/22 22:20 07/30/22 22:20 Pulse Rate 81 78 Pulse Rate [Orthostatic Lying] Pulse Rate [Orthostatic Sitting] Pulse Rate [Orthostatic Standing] Respiratory Rate 22 25 H Blood Pressure 131/51 L Blood Pressure [Orthostatic Lying] Blood Pressure [Orthostatic Sitting] Blood Pressure [Orthostatic Standing] Pulse Oximetry 97 97 Oxygen Delivery Method Oxygen Flow Rate 07/30/22 22:25 07/30/22 22:25 07/30/22 22:30 Pulse Rate 79 Pulse Rate [Orthostatic Lying] Pulse Rate [Orthostatic Sitting] Pulse Rate [Orthostatic Standing] Respiratory Rate 21 Blood Pressure 96/51 L 100/55 L Blood Pressure [Orthostatic Lying] Blood Pressure [Orthostatic Sitting] Blood Pressure [Orthostatic Standing] Pulse Oximetry 96 Oxygen Delivery Method Oxygen Flow Rate 07/30/22 22:30 07/30/22 22:35 07/30/22 22:35 Pulse Rate 75 77 Pulse Rate [Orthostatic Lying] Pulse Rate [Orthostatic Sitting] Pulse Rate [Orthostatic Standing] Respiratory Rate 18 27 H Blood Pressure 101/59 L Blood Pressure [Orthostatic Lying] Blood Pressure [Orthostatic Sitting] Blood Pressure [Orthostatic Standing] Pulse Oximetry 96 97 Oxygen Delivery Method Oxygen Flow Rate 07/30/22 22:40 07/30/22 22:40 07/30/22 22:45 Pulse Rate 74 126 H Pulse Rate [Orthostatic Lying] Pulse Rate [Orthostatic Sitting] Pulse Rate [Orthostatic Standing] Respiratory Rate 23 17 Blood Pressure 111/58 L Blood Pressure [Orthostatic Lying] Blood Pressure [Orthostatic Sitting] Blood Pressure [Orthostatic Standing] Pulse Oximetry 97 96 Oxygen Delivery Method Oxygen Flow Rate 07/30/22 22:50 07/30/22 22:55 07/30/22 23:00 Pulse Rate 118 H 75 Pulse Rate [Orthostatic Lying] Pulse Rate [Orthostatic Sitting] Pulse Rate [Orthostatic Standing] Respiratory Rate 32 H 21 Blood Pressure 114/58 L Blood Pressure [Orthostatic Lying] Blood Pressure [Orthostatic Sitting] Blood Pressure [Orthostatic Standing] Pulse Oximetry 96 97 Oxygen Delivery Method Oxygen Flow Rate 07/30/22 23:00 07/30/22 23:05 07/30/22 23:10 Pulse Rate 75 81 Pulse Rate [Orthostatic Lying] Pulse Rate [Orthostatic Sitting] Pulse Rate [Orthostatic Standing] Respiratory Rate 15 32 H Blood Pressure 116/57 L Blood Pressure [Orthostatic Lying] Blood Pressure [Orthostatic Sitting] Blood Pressure [Orthostatic Standing] Pulse Oximetry 97 92 Oxygen Delivery Method Oxygen Flow Rate 07/30/22 23:10 07/30/22 23:15 07/30/22 23:20 Pulse Rate 75 80 Pulse Rate [Orthostatic Lying] Pulse Rate [Orthostatic Sitting] Pulse Rate [Orthostatic Standing] Respiratory Rate 17 30 H Blood Pressure 94/59 L Blood Pressure [Orthostatic Lying] Blood Pressure [Orthostatic Sitting] Blood Pressure [Orthostatic Standing] Pulse Oximetry 93 84 L Oxygen Delivery Method Oxygen Flow Rate 07/30/22 23:20 07/30/22 23:25 07/30/22 23:30 Pulse Rate 83 90 91 H Pulse Rate [Orthostatic Lying] Pulse Rate [Orthostatic Sitting] Pulse Rate [Orthostatic Standing] Respiratory Rate 28 H 32 H 41 H Blood Pressure Blood Pressure [Orthostatic Lying] Blood Pressure [Orthostatic Sitting] Blood Pressure [Orthostatic Standing] Pulse Oximetry 90 L 78 L Oxygen Delivery Method Oxygen Flow Rate 07/30/22 23:37 07/30/22 23:40 07/30/22 23:40 Pulse Rate 91 H 81 Pulse Rate [Orthostatic Lying] Pulse Rate [Orthostatic Sitting] Pulse Rate [Orthostatic Standing] Respiratory Rate 24 Blood Pressure 107/63 Blood Pressure [Orthostatic Lying] Blood Pressure [Orthostatic Sitting] Blood Pressure [Orthostatic Standing] Pulse Oximetry 83 L 82 L Oxygen Delivery Method Oxygen Flow Rate 07/30/22 23:45 Pulse Rate 80 Pulse Rate [Orthostatic Lying] Pulse Rate [Orthostatic Sitting] Pulse Rate [Orthostatic Standing] Respiratory Rate 17 Blood Pressure Blood Pressure [Orthostatic Lying] Blood Pressure [Orthostatic Sitting] Blood Pressure [Orthostatic Standing] Pulse Oximetry Oxygen Delivery Method Oxygen Flow Rate <Mariano Culp, DO - Last Filed: 07/31/22 00:52> Orders Ordered: ED Orders 07/30/22 20:00 BMP [Basic Metabolic Panel] Stat CBC Auto Diff [Complete Blood Count AUTO DIFF] Stat 07/30/22 20:20 Creatinine Urine Random Stat Sodium Urine Random Stat 07/30/22 20:30 Ictotest Urine Stat UA Complete [Urinalysis and Microscopic] Stat 07/30/22 20:52 US renal complete Stat Discontinued Medications Acetaminophen (Acetaminophen 325 Mg Tablet) 650 mg PO NOW ONE Stop: 07/30/22 16:40 Last Admin: 07/30/22 16:46 Dose: 650 mg Documented By: ALEXSANDRA Prothrombin Complex Concent ( Human) 2,500 unit/Miscellaneous 100 mls @ 751.147 mls/hr IV NOW ONE Stop: 07/30/22 12:52 Last Infusion: 07/30/22 13:11 Dose: 0 unit/kg/min, 0 mls/hr Documented By: ROSA MARIA Admin: 07/30/22 12:50 Dose: 3 unit/kg/min, 751.147 mls/hr Documented By: ROSA MARIA Sodium Chloride (Normal Saline 0.9%) 1,000 mls @ 1,000 mls/hr IV BOLUS ONE Stop: 07/30/22 15:39 Last Infusion: 07/30/22 16:18 Dose: 0 mls/hr Documented By: ROSA MARIA Admin: 07/30/22 14:42 Dose: 1,000 mls/hr Documented By: ROSA MARIA Sodium Chloride (Normal Saline 0.9%) 1,000 mls @ 1,000 mls/hr IV BOLUS ONE Stop: 07/30/22 17:38 Last Infusion: 07/30/22 17:51 Dose: 0 mls/hr Documented By: Admin: 07/30/22 16:47 Dose: 1,000 mls/hr Documented By: ALEXSANDRA Lactated Ringer's (Lactated Ringers) 1,000 mls @ 1,000 mls/hr IV BOLUS ONE Stop: 07/30/22 23:25 Last Infusion: 07/30/22 23:44 Dose: 0 mls/hr Documented By: Admin: 07/30/22 22:37 Dose: 1,000 mls/hr Documented By: ALEXSANDRA Proparacaine HCl (Proparacaine 0.5% Ophth [place]) 1 drops EYE-RIGHT NOW ONE Stop: 07/30/22 12:41 Last Admin: 07/30/22 12:43 Dose: 1 drop Documented By: ROSA MARIA Vital Signs Vital signs: Vital Signs - 8 hr 07/30/22 16:50 07/30/22 16:50 07/30/22 17:00 Pulse Rate 84 82 Pulse Rate [Orthostatic Lying] Pulse Rate [Orthostatic Sitting] Pulse Rate [Orthostatic Standing] Respiratory Rate 20 16 Blood Pressure 98/61 Blood Pressure [Orthostatic Lying] Blood Pressure [Orthostatic Sitting] Blood Pressure [Orthostatic Standing] Pulse Oximetry 95 94 Oxygen Delivery Method Oxygen Flow Rate 07/30/22 17:02 07/30/22 17:02 07/30/22 17:10 Pulse Rate 81 81 Pulse Rate [Orthostatic Lying] Pulse Rate [Orthostatic Sitting] Pulse Rate [Orthostatic Standing] Respiratory Rate 20 19 Blood Pressure 103/59 L Blood Pressure [Orthostatic Lying] Blood Pressure [Orthostatic Sitting] Blood Pressure [Orthostatic Standing] Pulse Oximetry 94 96 Oxygen Delivery Method Oxygen Flow Rate 07/30/22 17:13 07/30/22 17:13 07/30/22 17:16 Pulse Rate 80 79 Pulse Rate [Orthostatic Lying] Pulse Rate [Orthostatic Sitting] Pulse Rate [Orthostatic Standing] Respiratory Rate 17 22 Blood Pressure 93/55 L Blood Pressure [Orthostatic Lying] Blood Pressure [Orthostatic Sitting] Blood Pressure [Orthostatic Standing] Pulse Oximetry 95 94 Oxygen Delivery Method Oxygen Flow Rate 07/30/22 17:16 07/30/22 17:20 07/30/22 17:20 Pulse Rate 78 Pulse Rate [Orthostatic Lying] Pulse Rate [Orthostatic Sitting] Pulse Rate [Orthostatic Standing] Respiratory Rate 16 Blood Pressure 101/61 101/64 Blood Pressure [Orthostatic Lying] Blood Pressure [Orthostatic Sitting] Blood Pressure [Orthostatic Standing] Pulse Oximetry 91 Oxygen Delivery Method Oxygen Flow Rate 07/30/22 17:25 07/30/22 17:25 07/30/22 17:30 Pulse Rate 79 Pulse Rate [Orthostatic Lying] Pulse Rate [Orthostatic Sitting] Pulse Rate [Orthostatic Standing] Respiratory Rate 17 Blood Pressure 103/63 106/66 Blood Pressure [Orthostatic Lying] Blood Pressure [Orthostatic Sitting] Blood Pressure [Orthostatic Standing] Pulse Oximetry 91 Oxygen Delivery Method Oxygen Flow Rate 07/30/22 17:30 07/30/22 17:35 07/30/22 17:35 Pulse Rate 79 79 Pulse Rate [Orthostatic Lying] Pulse Rate [Orthostatic Sitting] Pulse Rate [Orthostatic Standing] Respiratory Rate 17 17 Blood Pressure 112/69 Blood Pressure [Orthostatic Lying] Blood Pressure [Orthostatic Sitting] Blood Pressure [Orthostatic Standing] Pulse Oximetry 91 94 Oxygen Delivery Method Oxygen Flow Rate 07/30/22 17:40 07/30/22 17:40 07/30/22 17:45 Pulse Rate 78 80 Pulse Rate [Orthostatic Lying] Pulse Rate [Orthostatic Sitting] Pulse Rate [Orthostatic Standing] Respiratory Rate 16 23 Blood Pressure 118/70 Blood Pressure [Orthostatic Lying] Blood Pressure [Orthostatic Sitting] Blood Pressure [Orthostatic Standing] Pulse Oximetry 91 93 Oxygen Delivery Method Oxygen Flow Rate 07/30/22 17:45 07/30/22 17:50 07/30/22 17:50 Pulse Rate 77 Pulse Rate [Orthostatic Lying] Pulse Rate [Orthostatic Sitting] Pulse Rate [Orthostatic Standing] Respiratory Rate 17 Blood Pressure 109/61 101/60 Blood Pressure [Orthostatic Lying] Blood Pressure [Orthostatic Sitting] Blood Pressure [Orthostatic Standing] Pulse Oximetry 93 Oxygen Delivery Method Oxygen Flow Rate 07/30/22 18:33 07/30/22 17:55 07/30/22 17:55 Pulse Rate 76 Pulse Rate [Orthostatic Lying] 80 Pulse Rate [Orthostatic Sitting] 95 H Pulse Rate [Orthostatic Standing] 99 H Respiratory Rate 16 Blood Pressure 101/59 L Blood Pressure [Orthostatic Lying] 129/66 Blood Pressure [Orthostatic Sitting] 109/55 L Blood Pressure [Orthostatic Standing] 92/54 L Pulse Oximetry 91 Oxygen Delivery Method Oxygen Flow Rate 07/30/22 18:00 07/30/22 18:09 07/30/22 18:09 Pulse Rate 77 78 Pulse Rate [Orthostatic Lying] Pulse Rate [Orthostatic Sitting] Pulse Rate [Orthostatic Standing] Respiratory Rate 17 16 Blood Pressure 122/68 Blood Pressure [Orthostatic Lying] Blood Pressure [Orthostatic Sitting] Blood Pressure [Orthostatic Standing] Pulse Oximetry 93 Oxygen Delivery Method Oxygen Flow Rate 07/30/22 18:10 07/30/22 18:10 07/30/22 18:15 Pulse Rate 78 Pulse Rate [Orthostatic Lying] Pulse Rate [Orthostatic Sitting] Pulse Rate [Orthostatic Standing] Respiratory Rate 17 Blood Pressure 129/66 109/55 L Blood Pressure [Orthostatic Lying] Blood Pressure [Orthostatic Sitting] Blood Pressure [Orthostatic Standing] Pulse Oximetry 95 Oxygen Delivery Method Oxygen Flow Rate 07/30/22 18:15 07/30/22 18:17 07/30/22 18:17 Pulse Rate 93 H 98 H Pulse Rate [Orthostatic Lying] Pulse Rate [Orthostatic Sitting] Pulse Rate [Orthostatic Standing] Respiratory Rate 20 22 Blood Pressure 92/54 L Blood Pressure [Orthostatic Lying] Blood Pressure [Orthostatic Sitting] Blood Pressure [Orthostatic Standing] Pulse Oximetry 97 Oxygen Delivery Method Oxygen Flow Rate 07/30/22 18:24 07/30/22 18:24 07/30/22 18:30 Pulse Rate 101 H 83 Pulse Rate [Orthostatic Lying] Pulse Rate [Orthostatic Sitting] Pulse Rate [Orthostatic Standing] Respiratory Rate 21 Blood Pressure 127/73 Blood Pressure [Orthostatic Lying] Blood Pressure [Orthostatic Sitting] Blood Pressure [Orthostatic Standing] Pulse Oximetry 98 97 Oxygen Delivery Method Oxygen Flow Rate 07/30/22 18:35 07/30/22 18:40 07/30/22 18:45 Pulse Rate 87 84 82 Pulse Rate [Orthostatic Lying] Pulse Rate [Orthostatic Sitting] Pulse Rate [Orthostatic Standing] Respiratory Rate 24 18 20 Blood Pressure Blood Pressure [Orthostatic Lying] Blood Pressure [Orthostatic Sitting] Blood Pressure [Orthostatic Standing] Pulse Oximetry 94 94 92 Oxygen Delivery Method Oxygen Flow Rate 07/30/22 18:50 07/30/22 18:55 07/30/22 18:55 Pulse Rate 81 81 Pulse Rate [Orthostatic Lying] Pulse Rate [Orthostatic Sitting] Pulse Rate [Orthostatic Standing] Respiratory Rate 22 19 Blood Pressure 101/62 Blood Pressure [Orthostatic Lying] Blood Pressure [Orthostatic Sitting] Blood Pressure [Orthostatic Standing] Pulse Oximetry 91 94 Oxygen Delivery Method Oxygen Flow Rate 07/30/22 19:00 07/30/22 19:00 07/30/22 19:05 Pulse Rate 80 Pulse Rate [Orthostatic Lying] Pulse Rate [Orthostatic Sitting] Pulse Rate [Orthostatic Standing] Respiratory Rate 18 Blood Pressure 108/61 106/61 Blood Pressure [Orthostatic Lying] Blood Pressure [Orthostatic Sitting] Blood Pressure [Orthostatic Standing] Pulse Oximetry 91 Oxygen Delivery Method Oxygen Flow Rate 07/30/22 19:05 07/30/22 19:10 07/30/22 19:10 Pulse Rate 80 79 Pulse Rate [Orthostatic Lying] Pulse Rate [Orthostatic Sitting] Pulse Rate [Orthostatic Standing] Respiratory Rate 20 18 Blood Pressure 108/61 Blood Pressure [Orthostatic Lying] Blood Pressure [Orthostatic Sitting] Blood Pressure [Orthostatic Standing] Pulse Oximetry 94 Oxygen Delivery Method Oxygen Flow Rate 07/30/22 19:15 07/30/22 19:15 07/30/22 19:20 Pulse Rate 80 Pulse Rate [Orthostatic Lying] Pulse Rate [Orthostatic Sitting] Pulse Rate [Orthostatic Standing] Respiratory Rate 18 Blood Pressure 107/58 L 108/59 L Blood Pressure [Orthostatic Lying] Blood Pressure [Orthostatic Sitting] Blood Pressure [Orthostatic Standing] Pulse Oximetry 91 Oxygen Delivery Method Oxygen Flow Rate 07/30/22 19:20 07/30/22 19:25 07/30/22 19:25 Pulse Rate 79 79 Pulse Rate [Orthostatic Lying] Pulse Rate [Orthostatic Sitting] Pulse Rate [Orthostatic Standing] Respiratory Rate 18 17 Blood Pressure 112/61 Blood Pressure [Orthostatic Lying] Blood Pressure [Orthostatic Sitting] Blood Pressure [Orthostatic Standing] Pulse Oximetry 91 Oxygen Delivery Method Oxygen Flow Rate 07/30/22 19:30 07/30/22 19:30 07/30/22 19:35 Pulse Rate 78 Pulse Rate [Orthostatic Lying] Pulse Rate [Orthostatic Sitting] Pulse Rate [Orthostatic Standing] Respiratory Rate 18 Blood Pressure 117/58 L 109/59 L Blood Pressure [Orthostatic Lying] Blood Pressure [Orthostatic Sitting] Blood Pressure [Orthostatic Standing] Pulse Oximetry 91 Oxygen Delivery Method Oxygen Flow Rate 07/30/22 19:35 07/30/22 19:40 07/30/22 19:40 Pulse Rate 80 85 Pulse Rate [Orthostatic Lying] Pulse Rate [Orthostatic Sitting] Pulse Rate [Orthostatic Standing] Respiratory Rate 18 16 Blood Pressure 116/55 L Blood Pressure [Orthostatic Lying] Blood Pressure [Orthostatic Sitting] Blood Pressure [Orthostatic Standing] Pulse Oximetry 91 93 Oxygen Delivery Method Oxygen Flow Rate 07/30/22 19:45 07/30/22 19:45 07/30/22 19:50 Pulse Rate 79 Pulse Rate [Orthostatic Lying] Pulse Rate [Orthostatic Sitting] Pulse Rate [Orthostatic Standing] Respiratory Rate 18 Blood Pressure 119/58 L 109/56 L Blood Pressure [Orthostatic Lying] Blood Pressure [Orthostatic Sitting] Blood Pressure [Orthostatic Standing] Pulse Oximetry 91 Oxygen Delivery Method Oxygen Flow Rate 07/30/22 19:50 07/30/22 19:55 07/30/22 19:55 Pulse Rate 79 78 Pulse Rate [Orthostatic Lying] Pulse Rate [Orthostatic Sitting] Pulse Rate [Orthostatic Standing] Respiratory Rate 18 23 Blood Pressure 107/59 L Blood Pressure [Orthostatic Lying] Blood Pressure [Orthostatic Sitting] Blood Pressure [Orthostatic Standing] Pulse Oximetry 91 93 Oxygen Delivery Method Oxygen Flow Rate 07/30/22 20:00 07/30/22 20:00 07/30/22 20:05 Pulse Rate 96 H Pulse Rate [Orthostatic Lying] Pulse Rate [Orthostatic Sitting] Pulse Rate [Orthostatic Standing] Respiratory Rate Blood Pressure 118/56 L 111/54 L Blood Pressure [Orthostatic Lying] Blood Pressure [Orthostatic Sitting] Blood Pressure [Orthostatic Standing] Pulse Oximetry 94 Oxygen Delivery Method Oxygen Flow Rate 07/30/22 20:05 07/30/22 20:10 07/30/22 20:10 Pulse Rate 87 90 Pulse Rate [Orthostatic Lying] Pulse Rate [Orthostatic Sitting] Pulse Rate [Orthostatic Standing] Respiratory Rate 22 23 Blood Pressure 109/57 L Blood Pressure [Orthostatic Lying] Blood Pressure [Orthostatic Sitting] Blood Pressure [Orthostatic Standing] Pulse Oximetry 96 94 Oxygen Delivery Method Oxygen Flow Rate 07/30/22 20:20 07/30/22 20:21 07/30/22 20:21 Pulse Rate 99 H 97 H Pulse Rate [Orthostatic Lying] Pulse Rate [Orthostatic Sitting] Pulse Rate [Orthostatic Standing] Respiratory Rate Blood Pressure 98/77 Blood Pressure [Orthostatic Lying] Blood Pressure [Orthostatic Sitting] Blood Pressure [Orthostatic Standing] Pulse Oximetry Oxygen Delivery Method Oxygen Flow Rate 07/30/22 20:29 07/30/22 20:29 07/30/22 20:30 Pulse Rate 90 Pulse Rate [Orthostatic Lying] Pulse Rate [Orthostatic Sitting] Pulse Rate [Orthostatic Standing] Respiratory Rate 24 Blood Pressure 121/63 114/57 L Blood Pressure [Orthostatic Lying] Blood Pressure [Orthostatic Sitting] Blood Pressure [Orthostatic Standing] Pulse Oximetry 98 Oxygen Delivery Method Oxygen Flow Rate 07/30/22 20:30 07/30/22 20:35 07/30/22 20:35 Pulse Rate 87 84 Pulse Rate [Orthostatic Lying] Pulse Rate [Orthostatic Sitting] Pulse Rate [Orthostatic Standing] Respiratory Rate 21 19 Blood Pressure 99/53 L Blood Pressure [Orthostatic Lying] Blood Pressure [Orthostatic Sitting] Blood Pressure [Orthostatic Standing] Pulse Oximetry 97 92 Oxygen Delivery Method Oxygen Flow Rate 07/30/22 20:40 07/30/22 20:40 07/30/22 20:45 Pulse Rate 83 Pulse Rate [Orthostatic Lying] Pulse Rate [Orthostatic Sitting] Pulse Rate [Orthostatic Standing] Respiratory Rate 19 Blood Pressure 81/51 L 84/53 L Blood Pressure [Orthostatic Lying] Blood Pressure [Orthostatic Sitting] Blood Pressure [Orthostatic Standing] Pulse Oximetry 91 Oxygen Delivery Method Oxygen Flow Rate 07/30/22 20:45 07/30/22 20:49 07/30/22 20:49 Pulse Rate 85 83 Pulse Rate [Orthostatic Lying] Pulse Rate [Orthostatic Sitting] Pulse Rate [Orthostatic Standing] Respiratory Rate 17 21 Blood Pressure 86/55 L Blood Pressure [Orthostatic Lying] Blood Pressure [Orthostatic Sitting] Blood Pressure [Orthostatic Standing] Pulse Oximetry 93 Oxygen Delivery Method Oxygen Flow Rate 07/30/22 20:50 07/30/22 20:50 07/30/22 20:55 Pulse Rate 84 Pulse Rate [Orthostatic Lying] Pulse Rate [Orthostatic Sitting] Pulse Rate [Orthostatic Standing] Respiratory Rate 20 Blood Pressure 93/56 L 91/53 L Blood Pressure [Orthostatic Lying] Blood Pressure [Orthostatic Sitting] Blood Pressure [Orthostatic Standing] Pulse Oximetry 90 L Oxygen Delivery Method Nasal Cannula Oxygen Flow Rate 2 07/30/22 20:55 07/30/22 21:00 07/30/22 21:00 Pulse Rate 82 79 Pulse Rate [Orthostatic Lying] Pulse Rate [Orthostatic Sitting] Pulse Rate [Orthostatic Standing] Respiratory Rate 16 18 Blood Pressure 100/59 L Blood Pressure [Orthostatic Lying] Blood Pressure [Orthostatic Sitting] Blood Pressure [Orthostatic Standing] Pulse Oximetry 96 94 Oxygen Delivery Method Nasal Cannula Oxygen Flow Rate 2 07/30/22 21:05 07/30/22 21:05 07/30/22 21:10 Pulse Rate 80 Pulse Rate [Orthostatic Lying] Pulse Rate [Orthostatic Sitting] Pulse Rate [Orthostatic Standing] Respiratory Rate 18 Blood Pressure 102/58 L 103/57 L Blood Pressure [Orthostatic Lying] Blood Pressure [Orthostatic Sitting] Blood Pressure [Orthostatic Standing] Pulse Oximetry 94 Oxygen Delivery Method Oxygen Flow Rate 07/30/22 21:10 07/30/22 21:15 07/30/22 21:15 Pulse Rate 81 77 Pulse Rate [Orthostatic Lying] Pulse Rate [Orthostatic Sitting] Pulse Rate [Orthostatic Standing] Respiratory Rate 16 17 Blood Pressure 109/56 L Blood Pressure [Orthostatic Lying] Blood Pressure [Orthostatic Sitting] Blood Pressure [Orthostatic Standing] Pulse Oximetry 93 93 Oxygen Delivery Method Oxygen Flow Rate 07/30/22 21:20 07/30/22 21:20 07/30/22 21:25 Pulse Rate 77 Pulse Rate [Orthostatic Lying] Pulse Rate [Orthostatic Sitting] Pulse Rate [Orthostatic Standing] Respiratory Rate 19 Blood Pressure 113/58 L 113/55 L Blood Pressure [Orthostatic Lying] Blood Pressure [Orthostatic Sitting] Blood Pressure [Orthostatic Standing] Pulse Oximetry 95 Oxygen Delivery Method Oxygen Flow Rate 07/30/22 21:25 07/30/22 21:30 07/30/22 21:30 Pulse Rate 77 78 Pulse Rate [Orthostatic Lying] Pulse Rate [Orthostatic Sitting] Pulse Rate [Orthostatic Standing] Respiratory Rate 18 18 Blood Pressure 118/60 Blood Pressure [Orthostatic Lying] Blood Pressure [Orthostatic Sitting] Blood Pressure [Orthostatic Standing] Pulse Oximetry 95 93 Oxygen Delivery Method Oxygen Flow Rate 07/30/22 21:35 07/30/22 21:35 07/30/22 21:40 Pulse Rate 91 H Pulse Rate [Orthostatic Lying] Pulse Rate [Orthostatic Sitting] Pulse Rate [Orthostatic Standing] Respiratory Rate 32 H Blood Pressure 119/63 120/67 Blood Pressure [Orthostatic Lying] Blood Pressure [Orthostatic Sitting] Blood Pressure [Orthostatic Standing] Pulse Oximetry 94 Oxygen Delivery Method Oxygen Flow Rate 07/30/22 21:40 07/30/22 21:45 07/30/22 21:50 Pulse Rate 90 90 Pulse Rate [Orthostatic Lying] Pulse Rate [Orthostatic Sitting] Pulse Rate [Orthostatic Standing] Respiratory Rate 23 35 H Blood Pressure 127/64 Blood Pressure [Orthostatic Lying] Blood Pressure [Orthostatic Sitting] Blood Pressure [Orthostatic Standing] Pulse Oximetry 97 93 Oxygen Delivery Method Oxygen Flow Rate 07/30/22 21:50 07/30/22 21:55 07/30/22 22:00 Pulse Rate 83 84 Pulse Rate [Orthostatic Lying] Pulse Rate [Orthostatic Sitting] Pulse Rate [Orthostatic Standing] Respiratory Rate 23 30 H Blood Pressure 107/59 L Blood Pressure [Orthostatic Lying] Blood Pressure [Orthostatic Sitting] Blood Pressure [Orthostatic Standing] Pulse Oximetry 96 92 Oxygen Delivery Method Oxygen Flow Rate 07/30/22 22:00 07/30/22 22:05 07/30/22 22:05 Pulse Rate 88 80 Pulse Rate [Orthostatic Lying] Pulse Rate [Orthostatic Sitting] Pulse Rate [Orthostatic Standing] Respiratory Rate 22 18 Blood Pressure 108/52 L Blood Pressure [Orthostatic Lying] Blood Pressure [Orthostatic Sitting] Blood Pressure [Orthostatic Standing] Pulse Oximetry 95 95 Oxygen Delivery Method Oxygen Flow Rate 07/30/22 22:10 07/30/22 22:10 07/30/22 22:15 Pulse Rate 82 Pulse Rate [Orthostatic Lying] Pulse Rate [Orthostatic Sitting] Pulse Rate [Orthostatic Standing] Respiratory Rate 21 Blood Pressure 110/52 L 137/66 Blood Pressure [Orthostatic Lying] Blood Pressure [Orthostatic Sitting] Blood Pressure [Orthostatic Standing] Pulse Oximetry 96 Oxygen Delivery Method Oxygen Flow Rate 07/30/22 22:15 07/30/22 22:20 07/30/22 22:20 Pulse Rate 81 78 Pulse Rate [Orthostatic Lying] Pulse Rate [Orthostatic Sitting] Pulse Rate [Orthostatic Standing] Respiratory Rate 22 25 H Blood Pressure 131/51 L Blood Pressure [Orthostatic Lying] Blood Pressure [Orthostatic Sitting] Blood Pressure [Orthostatic Standing] Pulse Oximetry 97 97 Oxygen Delivery Method Oxygen Flow Rate 07/30/22 22:25 07/30/22 22:25 07/30/22 22:30 Pulse Rate 79 Pulse Rate [Orthostatic Lying] Pulse Rate [Orthostatic Sitting] Pulse Rate [Orthostatic Standing] Respiratory Rate 21 Blood Pressure 96/51 L 100/55 L Blood Pressure [Orthostatic Lying] Blood Pressure [Orthostatic Sitting] Blood Pressure [Orthostatic Standing] Pulse Oximetry 96 Oxygen Delivery Method Oxygen Flow Rate 07/30/22 22:30 07/30/22 22:35 07/30/22 22:35 Pulse Rate 75 77 Pulse Rate [Orthostatic Lying] Pulse Rate [Orthostatic Sitting] Pulse Rate [Orthostatic Standing] Respiratory Rate 18 27 H Blood Pressure 101/59 L Blood Pressure [Orthostatic Lying] Blood Pressure [Orthostatic Sitting] Blood Pressure [Orthostatic Standing] Pulse Oximetry 96 97 Oxygen Delivery Method Oxygen Flow Rate 07/30/22 22:40 07/30/22 22:40 07/30/22 22:45 Pulse Rate 74 126 H Pulse Rate [Orthostatic Lying] Pulse Rate [Orthostatic Sitting] Pulse Rate [Orthostatic Standing] Respiratory Rate 23 17 Blood Pressure 111/58 L Blood Pressure [Orthostatic Lying] Blood Pressure [Orthostatic Sitting] Blood Pressure [Orthostatic Standing] Pulse Oximetry 97 96 Oxygen Delivery Method Oxygen Flow Rate 07/30/22 22:50 07/30/22 22:55 07/30/22 23:00 Pulse Rate 118 H 75 Pulse Rate [Orthostatic Lying] Pulse Rate [Orthostatic Sitting] Pulse Rate [Orthostatic Standing] Respiratory Rate 32 H 21 Blood Pressure 114/58 L Blood Pressure [Orthostatic Lying] Blood Pressure [Orthostatic Sitting] Blood Pressure [Orthostatic Standing] Pulse Oximetry 96 97 Oxygen Delivery Method Oxygen Flow Rate 07/30/22 23:00 07/30/22 23:05 07/30/22 23:10 Pulse Rate 75 81 Pulse Rate [Orthostatic Lying] Pulse Rate [Orthostatic Sitting] Pulse Rate [Orthostatic Standing] Respiratory Rate 15 32 H Blood Pressure 116/57 L Blood Pressure [Orthostatic Lying] Blood Pressure [Orthostatic Sitting] Blood Pressure [Orthostatic Standing] Pulse Oximetry 97 92 Oxygen Delivery Method Oxygen Flow Rate 07/30/22 23:10 07/30/22 23:15 07/30/22 23:20 Pulse Rate 75 80 Pulse Rate [Orthostatic Lying] Pulse Rate [Orthostatic Sitting] Pulse Rate [Orthostatic Standing] Respiratory Rate 17 30 H Blood Pressure 94/59 L Blood Pressure [Orthostatic Lying] Blood Pressure [Orthostatic Sitting] Blood Pressure [Orthostatic Standing] Pulse Oximetry 93 84 L Oxygen Delivery Method Oxygen Flow Rate 07/30/22 23:20 07/30/22 23:25 07/30/22 23:30 Pulse Rate 83 90 91 H Pulse Rate [Orthostatic Lying] Pulse Rate [Orthostatic Sitting] Pulse Rate [Orthostatic Standing] Respiratory Rate 28 H 32 H 41 H Blood Pressure Blood Pressure [Orthostatic Lying] Blood Pressure [Orthostatic Sitting] Blood Pressure [Orthostatic Standing] Pulse Oximetry 90 L 78 L Oxygen Delivery Method Oxygen Flow Rate 07/30/22 23:37 07/30/22 23:40 07/30/22 23:40 Pulse Rate 91 H 81 Pulse Rate [Orthostatic Lying] Pulse Rate [Orthostatic Sitting] Pulse Rate [Orthostatic Standing] Respiratory Rate 24 Blood Pressure 107/63 Blood Pressure [Orthostatic Lying] Blood Pressure [Orthostatic Sitting] Blood Pressure [Orthostatic Standing] Pulse Oximetry 83 L 82 L Oxygen Delivery Method Oxygen Flow Rate 07/30/22 23:45 Pulse Rate 80 Pulse Rate [Orthostatic Lying] Pulse Rate [Orthostatic Sitting] Pulse Rate [Orthostatic Standing] Respiratory Rate 17 Blood Pressure Blood Pressure [Orthostatic Lying] Blood Pressure [Orthostatic Sitting] Blood Pressure [Orthostatic Standing] Pulse Oximetry Oxygen Delivery Method Oxygen Flow Rate Medical Decision Making <Kimani Luque MD - Last Filed: 07/30/22 20:07> Lab Data 07/30/22 12:30 07/30/22 12:30 Labs: Lab Results 07/30/22 07/30/22 07/30/22 Range/Units 12:30 12:30 12:30 WBC 19.6 H (4.5-11.0) X10^3/uL RBC 3.94 L (4.5-5.9) X10^6/uL Hgb 12.9 L (13.5-17.5) g/dL Hct 39.9 L (41-53) % MCV 101.3 H (80-100) fL MCH 32.9 (26-34) PG MCHC 32.5 (30-36) % RDW 14.5 (11.6-14.8) % Plt Count 225 (150-400) X10^3/uL Neut % (Auto) 83.4 H (50-75) % Lymph % (Auto) 8.7 L (25-40) % [place] % (Auto) 7.7 (3-14) % Eos % (Auto) 0.0 L (2-4) % Baso % (Auto) 0.2 (0-2) % Neut # (Auto) 35364 H (8152-8939) /uL Lymph # (Auto) 1700 (6921-5023) /uL [place] # (Auto) 1500 H (0-900) /uL Eos # (Auto) 0 (0-450) /uL Baso # (Auto) 0 (0-100) /uL PT 17.1 H (10.1-12.7) SECONDS INR 1.5 H (0.9-1.3) Sodium 143 (137-145) mmol/L Potassium 4.8 (3.4-5.1) mmol/L Chloride 108 H (98-107) mmol/L Carbon Dioxide 20 L (22-32) mmol/L BUN 56 H (9-20) mg/dL Creatinine 1.65 H (0.66-1.25) mg/dL Estimated GFR 42 L (>60) mL/min BUN/Creatinine Ratio 33.9 H (6-22) Glucose 190 H (80-110) mg/dL Calcium 9.0 (8.4-10.2) mg/dL Total Bilirubin 0.9 (0.2-1.3) mg/dL AST 31 (17-59) IU/L ALT 42 (<50) IU/L Alkaline Phosphatase 58 (38-126) U/L Total Protein 7.5 (6.3-8.2) g/dL Albumin 4.2 (3.5-5.0) g/dL Globulin 3.3 (1.7-4.1) g/dL Albumin/Globulin Ratio 1.3 (1.0-2.8) Urine Color Urine Appearance Urine pH (4.5-8.0) Ur Specific [place] (1.000-1.035) Urine Protein (Negative) Urine Glucose (UA) (Negative) g/dL Urine Ketones (NEGATIVE) Urine Occult Blood (Negative) Urine Nitrate (Negative) Urine Bilirubin (NEGATIVE) Ur Bilirubin Confirm (Negative) Urine Urobilinogen (0.2) E.U./dL Ur Leukocyte Esterase (NEGATIVE) Urine RBC (0-5/HPF) Urine WBC (0-5/HPF) Ur Squamous Epith Cells (0-5/HPF) Urine Bacteria (None) Ur Culture Indicated? Ur Random Sodium (30-90) mmol/L Urine Creatinine mg/dL 07/30/22 07/30/22 07/30/22 Range/Units 20:00 20:00 20:20 WBC 19.4 H (4.5-11.0) X10^3/uL RBC 3.46 L (4.5-5.9) X10^6/uL Hgb 11.5 L (13.5-17.5) g/dL Hct 35.0 L (41-53) % MCV 101.0 H (80-100) fL MCH 33.2 (26-34) PG MCHC 32.9 (30-36) % RDW 14.6 (11.6-14.8) % Plt Count 183 (150-400) X10^3/uL Neut % (Auto) 72.0 (50-75) % Lymph % (Auto) 15.0 L (25-40) % [place] % (Auto) 12.5 (3-14) % Eos % (Auto) 0.1 L (2-4) % Baso % (Auto) 0.4 (0-2) % Neut # (Auto) 95105 H (2728-2931) /uL Lymph # (Auto) 2900 (1399-6257) /uL [place] # (Auto) 2400 H (0-900) /uL Eos # (Auto) 0 (0-450) /uL Baso # (Auto) 100 (0-100) /uL PT (10.1-12.7) SECONDS INR (0.9-1.3) Sodium 143 (137-145) mmol/L Potassium 5.0 (3.4-5.1) mmol/L Chloride 107 (98-107) mmol/L Carbon Dioxide 22 (22-32) mmol/L BUN 61 H (9-20) mg/dL Creatinine 1.89 H (0.66-1.25) mg/dL Estimated GFR 36 L (>60) mL/min BUN/Creatinine Ratio 32.3 H (6-22) Glucose 135 H (80-110) mg/dL Calcium 8.4 (8.4-10.2) mg/dL Total Bilirubin (0.2-1.3) mg/dL AST (17-59) IU/L ALT (<50) IU/L Alkaline Phosphatase (38-126) U/L Total Protein (6.3-8.2) g/dL Albumin (3.5-5.0) g/dL Globulin (1.7-4.1) g/dL Albumin/Globulin Ratio (1.0-2.8) Urine Color Urine Appearance Urine pH (4.5-8.0) Ur Specific [place] (1.000-1.035) Urine Protein (Negative) Urine Glucose (UA) (Negative) g/dL Urine Ketones (NEGATIVE) Urine Occult Blood (Negative) Urine Nitrate (Negative) Urine Bilirubin (NEGATIVE) Ur Bilirubin Confirm (Negative) Urine Urobilinogen (0.2) E.U./dL Ur Leukocyte Esterase (NEGATIVE) Urine RBC (0-5/HPF) Urine WBC (0-5/HPF) Ur Squamous Epith Cells (0-5/HPF) Urine Bacteria (None) Ur Culture Indicated? Ur Random Sodium 8 L (30-90) mmol/L Urine Creatinine 145.7 mg/dL 07/30/22 Range/Units 20:30 WBC (4.5-11.0) X10^3/uL RBC (4.5-5.9) X10^6/uL Hgb (13.5-17.5) g/dL Hct (41-53) % MCV (80-100) fL MCH (26-34) PG MCHC (30-36) % RDW (11.6-14.8) % Plt Count (150-400) X10^3/uL Neut % (Auto) (50-75) % Lymph % (Auto) (25-40) % [place] % (Auto) (3-14) % Eos % (Auto) (2-4) % Baso % (Auto) (0-2) % Neut # (Auto) (6078-7083) /uL Lymph # (Auto) (2163-3689) /uL [place] # (Auto) (0-900) /uL Eos # (Auto) (0-450) /uL Baso # (Auto) (0-100) /uL PT (10.1-12.7) SECONDS INR (0.9-1.3) Sodium (137-145) mmol/L Potassium (3.4-5.1) mmol/L Chloride (98-107) mmol/L Carbon Dioxide (22-32) mmol/L BUN (9-20) mg/dL Creatinine (0.66-1.25) mg/dL Estimated GFR (>60) mL/min BUN/Creatinine Ratio (6-22) Glucose (80-110) mg/dL Calcium (8.4-10.2) mg/dL Total Bilirubin (0.2-1.3) mg/dL AST (17-59) IU/L ALT (<50) IU/L Alkaline Phosphatase (38-126) U/L Total Protein (6.3-8.2) g/dL Albumin (3.5-5.0) g/dL Globulin (1.7-4.1) g/dL Albumin/Globulin Ratio (1.0-2.8) Urine Color Yellow Urine Appearance Sl cloudy Urine pH 5.0 (4.5-8.0) Ur Specific [place] 1.010 (1.000-1.035) Urine Protein 1+ H (Negative) Urine Glucose (UA) Negative (Negative) g/dL Urine Ketones Trace H (NEGATIVE) Urine Occult Blood Trace-intact (Negative) Urine Nitrate Negative (Negative) Urine Bilirubin 1+ H (NEGATIVE) Ur Bilirubin Confirm Negative (Negative) Urine Urobilinogen 1.0 (0.2) E.U./dL Ur Leukocyte Esterase Negative (NEGATIVE) Urine RBC 0-1/hpf (0-5/HPF) Urine WBC 1-5/hpf (0-5/HPF) Ur Squamous Epith Cells 1-5 /hpf (0-5/HPF) Urine Bacteria None seen (None) Ur Culture Indicated? Cult not indicated Ur Random Sodium (30-90) mmol/L Urine Creatinine mg/dL [facility] Narrative Medical decision making narrative: 77-year-old male presenting with generalized weakness, difficulty with ambulation, diplopia and right eye blurry vision in the setting of recently diagnosed subdural hematoma and subarachnoid hemorrhage at this facility, re cently transferred to [facility] where repeat scan was reassuring and patient was discharged. On presentation, patient with vital signs notable for relative hypotension, systolics in the 90s to 100s. 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 Initial concern for worsening intracranial hemorrhage, medication effect, peripheral neuropathy, CVA, mass lesion, orthostasis. Repeat CT head obtained and with possible minimal change from prior, no obvious marked difference. Discussed findings with Neurosurgery at [facility], no change when compared with imaging obtained at [facility], neurosurgery recommending CTA to evaluate for alternative pathology, do not feel that progression of bleeding represents primary etiology to explain the patient's symptoms. CTA head and neck obtained in with subtle extension of hemorrhage to include the area adjacent to the cavernous sinus which likely represents the etiology of the patient's 3rd nerve palsy. Discussed findings with stroke Neurology and general neurology service at [facility], agree that symptoms do seem to represent isolated peripheral nerve palsy, unlikely CVA. No specific recommendations for acute management or expectant management in the outpatient setting. Discussed findings with patient and family member at bedside. On repeat evaluation, patient with minimal improvement. Given patient's gradual improvement in level of interaction orientation, generalized weakness with fluids and time to metabolize multiple doses of opiate pain medications, suspect symptoms are multifactorial with 3rd nerve palsy in the setting of intracranial hemorrhage and medication effect related to opiate use. Discussed plan for follow-up imaging with MR, however, patient is not able to obtain MR imaging at this facility due to body habitus. Given low suspicion for CVA, discussed plan for discharge pending ambulation trial and follow up in outpatient setting with primary care physician and Neurology, outpatient MR imaging to facilitate repeat evaluation. Patient and family member comfortable with this plan. Initial ambulation trial following IV fluid, patient is able to stand with walker at bedside, however, patient does become orthostatic with standing, discussed plan for IV fluids and repeat evaluation. Patient is actively signed out to oncoming emergency department provider team with disposition pending repeat evaluation following IV fluid administration and repeat ambulation trial. <Mariano Culp, DO - Last Filed: 07/31/22 00:52> Lab Data Labs: Lab Results 07/30/22 07/30/22 07/30/22 Range/Units 12:30 12:30 12:30 WBC 19.6 H (4.5-11.0) X10^3/uL RBC 3.94 L (4.5-5.9) X10^6/uL Hgb 12.9 L (13.5-17.5) g/dL Hct 39.9 L (41-53) % MCV 101.3 H (80-100) fL MCH 32.9 (26-34) PG MCHC 32.5 (30-36) % RDW 14.5 (11.6-14.8) % Plt Count 225 (150-400) X10^3/uL Neut % (Auto) 83.4 H (50-75) % Lymph % (Auto) 8.7 L (25-40) % [place] % (Auto) 7.7 (3-14) % Eos % (Auto) 0.0 L (2-4) % Baso % (Auto) 0.2 (0-2) % Neut # (Auto) 02935 H (7429-2279) /uL Lymph # (Auto) 1700 (2904-2970) /uL [place] # (Auto) 1500 H (0-900) /uL Eos # (Auto) 0 (0-450) /uL Baso # (Auto) 0 (0-100) /uL PT 17.1 H (10.1-12.7) SECONDS INR 1.5 H (0.9-1.3) Sodium 143 (137-145) mmol/L Potassium 4.8 (3.4-5.1) mmol/L Chloride 108 H (98-107) mmol/L Carbon Dioxide 20 L (22-32) mmol/L BUN 56 H (9-20) mg/dL Creatinine 1.65 H (0.66-1.25) mg/dL Estimated GFR 42 L (>60) mL/min BUN/Creatinine Ratio 33.9 H (6-22) Glucose 190 H (80-110) mg/dL Calcium 9.0 (8.4-10.2) mg/dL Total Bilirubin 0.9 (0.2-1.3) mg/dL AST 31 (17-59) IU/L ALT 42 (<50) IU/L Alkaline Phosphatase 58 (38-126) U/L Total Protein 7.5 (6.3-8.2) g/dL Albumin 4.2 (3.5-5.0) g/dL Globulin 3.3 (1.7-4.1) g/dL Albumin/Globulin Ratio 1.3 (1.0-2.8) Urine Color Urine Appearance Urine pH (4.5-8.0) Ur Specific [place] (1.000-1.035) Urine Protein (Negative) Urine Glucose (UA) (Negative) g/dL Urine Ketones (NEGATIVE) Urine Occult Blood (Negative) Urine Nitrate (Negative) Urine Bilirubin (NEGATIVE) Ur Bilirubin Confirm (Negative) Urine Urobilinogen (0.2) E.U./dL Ur Leukocyte Esterase (NEGATIVE) Urine RBC (0-5/HPF) Urine WBC (0-5/HPF) Ur Squamous Epith Cells (0-5/HPF) Urine Bacteria (None) Ur Culture Indicated? Ur Random Sodium (30-90) mmol/L Urine Creatinine mg/dL 07/30/22 07/30/22 07/30/22 Range/Units 20:00 20:00 20:20 WBC 19.4 H (4.5-11.0) X10^3/uL RBC 3.46 L (4.5-5.9) X10^6/uL Hgb 11.5 L (13.5-17.5) g/dL Hct 35.0 L (41-53) % MCV 101.0 H (80-100) fL MCH 33.2 (26-34) PG MCHC 32.9 (30-36) % RDW 14.6 (11.6-14.8) % Plt Count 183 (150-400) X10^3/uL Neut % (Auto) 72.0 (50-75) % Lymph % (Auto) 15.0 L (25-40) % [place] % (Auto) 12.5 (3-14) % Eos % (Auto) 0.1 L (2-4) % Baso % (Auto) 0.4 (0-2) % Neut # (Auto) 25978 H (3098-8909) /uL Lymph # (Auto) 2900 (1167-7423) /uL [place] # (Auto) 2400 H (0-900) /uL Eos # (Auto) 0 (0-450) /uL Baso # (Auto) 100 (0-100) /uL PT (10.1-12.7) SECONDS INR (0.9-1.3) Sodium 143 (137-145) mmol/L Potassium 5.0 (3.4-5.1) mmol/L Chloride 107 (98-107) mmol/L Carbon Dioxide 22 (22-32) mmol/L BUN 61 H (9-20) mg/dL Creatinine 1.89 H (0.66-1.25) mg/dL Estimated GFR 36 L (>60) mL/min BUN/Creatinine Ratio 32.3 H (6-22) Glucose 135 H (80-110) mg/dL Calcium 8.4 (8.4-10.2) mg/dL Total Bilirubin (0.2-1.3) mg/dL AST (17-59) IU/L ALT (<50) IU/L Alkaline Phosphatase (38-126) U/L Total Protein (6.3-8.2) g/dL Albumin (3.5-5.0) g/dL Globulin (1.7-4.1) g/dL Albumin/Globulin Ratio (1.0-2.8) Urine Color Urine Appearance Urine pH (4.5-8.0) Ur Specific [place] (1.000-1.035) Urine Protein (Negative) Urine Glucose (UA) (Negative) g/dL Urine Ketones (NEGATIVE) Urine Occult Blood (Negative) Urine Nitrate (Negative) Urine Bilirubin (NEGATIVE) Ur Bilirubin Confirm (Negative) Urine Urobilinogen (0.2) E.U./dL Ur Leukocyte Esterase (NEGATIVE) Urine RBC (0-5/HPF) Urine WBC (0-5/HPF) Ur Squamous Epith Cells (0-5/HPF) Urine Bacteria (None) Ur Culture Indicated? Ur Random Sodium 8 L (30-90) mmol/L Urine Creatinine 145.7 mg/dL 07/30/22 Range/Units 20:30 WBC (4.5-11.0) X10^3/uL RBC (4.5-5.9) X10^6/uL Hgb (13.5-17.5) g/dL Hct (41-53) % MCV (80-100) fL MCH (26-34) PG MCHC (30-36) % RDW (11.6-14.8) % Plt Count (150-400) X10^3/uL Neut % (Auto) (50-75) % Lymph % (Auto) (25-40) % [place] % (Auto) (3-14) % Eos % (Auto) (2-4) % Baso % (Auto) (0-2) % Neut # (Auto) (6193-8440) /uL Lymph # (Auto) (4779-1149) /uL [place] # (Auto) (0-900) /uL Eos # (Auto) (0-450) /uL Baso # (Auto) (0-100) /uL PT (10.1-12.7) SECONDS INR (0.9-1.3) Sodium (137-145) mmol/L Potassium (3.4-5.1) mmol/L Chloride (98-107) mmol/L Carbon Dioxide (22-32) mmol/L BUN (9-20) mg/dL Creatinine (0.66-1.25) mg/dL Estimated GFR (>60) mL/min BUN/Creatinine Ratio (6-22) Glucose (80-110) mg/dL Calcium (8.4-10.2) mg/dL Total Bilirubin (0.2-1.3) mg/dL AST (17-59) IU/L ALT (<50) IU/L Alkaline Phosphatase (38-126) U/L Total Protein (6.3-8.2) g/dL Albumin (3.5-5.0) g/dL Globulin (1.7-4.1) g/dL Albumin/Globulin Ratio (1.0-2.8) Urine Color Yellow Urine Appearance Sl cloudy Urine pH 5.0 (4.5-8.0) Ur Specific [place] 1.010 (1.000-1.035) Urine Protein 1+ H (Negative) Urine Glucose (UA) Negative (Negative) g/dL Urine Ketones Trace H (NEGATIVE) Urine Occult Blood Trace-intact (Negative) Urine Nitrate Negative (Negative) Urine Bilirubin 1+ H (NEGATIVE) Ur Bilirubin Confirm Negative (Negative) Urine Urobilinogen 1.0 (0.2) E.U./dL Ur Leukocyte Esterase Negative (NEGATIVE) Urine RBC 0-1/hpf (0-5/HPF) Urine WBC 1-5/hpf (0-5/HPF) Ur Squamous Epith Cells 1-5 /hpf (0-5/HPF) Urine Bacteria None seen (None) Ur Culture Indicated? Cult not indicated Ur Random Sodium (30-90) mmol/L Urine Creatinine mg/dL [facility] Narrative Medical decision making narrative: 77-year-old male presenting with generalized weakness, difficulty with ambulation, diplopia and right eye blurry vision in the setting of recently diagnosed subdural hematoma and subarachnoid hemorrhage at this facility, recently transferred to [facility] where repeat scan was reassuring and patient was discharged. On presentation, patient with vital signs notable for relative hypotension, systolics in the 90s to 100s. Physical exam notable for alert and interactive 77-year-old male, reassuring cardiopulmo nary exam, benign abdomen, neurologic exam notable for isolated 3rd nerve palsy with eyelid droop, pupillary dilation, and altered extraocular movements as above. Initial concern for worsening intracranial hemorrhage, medication effect, peripheral neuropathy, CVA, mass lesion, orthostasis. Repeat CT head obtained and with possible minimal change from prior, no obvious marked difference. Discussed findings with Neurosurgery at [facility], no change when compared with imaging obtained at [facility], neurosurgery recommending CTA to evaluate for alternative pathology, do not feel that progression of bleeding represents primary etiology to explain the patient's symptoms. CTA head and neck obtained in with subtle extension of hemorrhage to include the area adjacent to the cavernous sinus which likely represents the etiology of the patient's 3rd nerve palsy. Discussed findings with stroke Neurology and general neurology service at [facility], agree that symptoms do seem to represent isolated peripheral nerve palsy, unlikely CVA. No specific recommendations for acute management or expectant management in the outpatient setting. Discussed findings with patient and family member at bedside. On repeat evaluation, patient with minimal improvement. Given patient's gradual improvement in level of interaction orientation, generalized weakness with fluids and time to metabolize multiple doses of opiate pain medications, suspect symptoms are multifactorial with 3rd nerve palsy in the setting of intracranial hemorrhage and medication effect related to opiate use. Discussed plan for follow-up imaging with MR, however, patient is not able to obtain MR imaging at this facility due to body habitus. Given low suspicion for CVA, discussed plan for discharge pending ambulation trial and follow up in outpatient setting with primary care physician and Neurology, outpatient MR imaging to facilitate repeat evaluation. Patient and family member comfortable with this plan. Initial ambulation trial following IV fluid, patient is able to stand with walker at bedside, however, patient does become orthostatic with standing, discussed plan for IV fluids and repeat evaluation. Patient is actively signed out to [facility] emergency de partment provider team with disposition pending repeat evaluation following IV fluid administration and repeat ambulation trial. [1800] (Robbi) Patient received in sign out from [Ene]. I have reviewed the clinical course and performed an independent history and physical exam. As the evening has worn on patient's blood pressure thankfully has improved as has his alertness but he still is feeling quite weak. Despite 2 L fluid bolus his creatinine continues to rise. Patient requires hospitalization to monitor/manage DEMETRICE. He had been NPO for upwards of 24 hours, received various medications and multiple contrasted CT scans. He does have dry mucous membranes and some poor skin turgor, decreased urine output, and FeNa notes likely pre-renal cause. Renal ultrasound demonstrates no obstructive uropathy. Patient and understand and agree with diagnosis and plan <Mariano Culp, DO - Last Filed: 07/31/22 00:52> Critical Care Time Critical Care Time: Yes Total Critical Care Time: 60 Attestation: The high probability of a clinically significant, sudden or life threatening deterioration of the [] system(s) required my full and direct attention, intervention and personal management. The aggregate critical care time was [60] minutes. This time is in addition to time spent performing reported procedures but includes the following: [x] Data Review and interpretation [x] Patient assessment and monitoring of vital signs [x] Documentation []x Medication orders and management Discharge Plan Departure Patient Disposition: Admitted As Inpatient Clinical Impression: Acute kidney injury, Subdural hematoma, Subarachnoid hematoma, Closed rib fracture, 3rd cranial nerve palsy, Traumatic hematoma of right shoulder Admit Date/Time: 07/31/22 00:37 Admit Provider: Purvi Gomez
--- NOTE | 2022-07-30 12:01 | DI.CT.S_ITS ---
PROCEDURE: CT CERVICAL SPINE WO CON INDICATIONS: fall TECHNIQUE: Noncontrast 3 mm thick sections acquired from the skull base to the T4 level. Sagittal and coronal reformats were then constructed. For radiation dose reduction, the following was used: automated exposure control, adjustment of mA and/or kV according to patient size. COMPARISON: [facility], CT, CT CERVICAL SPINE WO CON, 07/30/2022, 0:55. FINDINGS: No acute fracture. Degenerative straightening of the usual cervical lordosis. No listhesis or other traumatic malalignment. Degenerative changes redemonstrated. IMPRESSION: No acute finding. Dictated by: Saeed Newby M.D. on 07/30/2022 at 12:19 Approved by: Saeed Newby M.D. on 07/30/2022 at 12:20
--- NOTE | 2022-07-30 12:01 | DI.CT.S_ITS ---
PROCEDURE: CT HEAD/BRAIN WO CON INDICATIONS: eval worsening sdh TECHNIQUE: Noncontrast 4.5 mm thick angled axial sections acquired from the foramen magnum to the vertex, with coronal and sagittal reformats. For radiation dose reduction, the following was used: automated exposure control, adjustment of mA and/or kV according to patient size. COMPARISON: [facility], CT, CT HEAD/BRAIN WO CON, 07/30/2022, 0:55. FINDINGS: Increased density and slightly increased thickness of right tentorial leaflet subdural hematoma and posterior falx. No significant associated mass effect. No CT evidence of acute infarct. No additional intracranial hemorrhage. Right parietal scalp hematoma is not significantly changed. No gross orbital abnormality. Paranasal sinuses and mastoid air cells predominantly clear. IMPRESSION: Very slightly increased density and thickness of right tentorial and posterior falx subdural hematoma. Dictated by: Saeed Newby M.D. on 07/30/2022 at 12:17 Approved by: Saeed Newby M.D. on 07/30/2022 at 12:19
--- NOTE | 2022-07-30 12:10 | DI.RAD.S_ITS ---
PROCEDURE: XR CHEST 1V INDICATIONS: prior fall TECHNIQUE: One view of the chest was acquired. COMPARISON: [facility], CR, XR CHEST 1V, 01/29/2021, 6:28. FINDINGS: Surgical changes and devices: None. Lungs and pleura: No focal consolidation or mass. No pleural effusions or pneumothorax. There is left basilar atelectasis. Mediastinum: Mediastinal contours appear normal. Heart size is enlarged. Bones and chest wall: No suspicious bony lesions. Overlying soft tissues appear unremarkable. IMPRESSION: Left basilar atelectasis. Dictated by: Aravind Palm M.D. on 07/30/2022 at 12:56 Approved by: Aravind Palm M.D. on 07/30/2022 at 12:58
[2022-07-30] MEDS: PROPARACAINE 0.5% OPHTH SOL 1 DROPS EYE-RIGHT (12:43)
[2022-07-30] MEDS: PROTHROMBIN CPLX(PCC)4FACT 2,500 UNIT in ISOOSMOTIC VEHICLE 0 ML 751.147 UNIT IV (12:50)
[2022-07-30 12:53] LABS: Add Manual Diff / Slide Review NO; Basophils Absolute Auto 0 /uL (0-100); Basophils Percent Auto 0.2 % (0-2); Eosinophils Absolute Auto 0 /uL (0-450); Hematocrit 39.9 % (41-53); Hemoglobin 12.9 g/dL (13.5-17.5); Lymphocytes Absolute Auto 1700 /uL (1100-4500); Lymphocytes Percent Auto 8.7 % (25-40); Mean Corpuscular HGB Conc 32.5 % (30-36); Mean Corpuscular Hemoglobin 32.9 PG (26-34); Mean Corpuscular Volume 101.3 fL (80-100); Monocytes Absolute Auto 1500 /uL (0-900); Monocytes Percent Auto 7.7 % (3-14); Neutrophils Absolute Auto 16400 /uL (1500-7000); Neutrophils Percent Auto 83.4 % (50-75); Platelet Count 225 X10^3/uL (150-400); Red Blood Cell Count 3.94 X10^6/uL (4.5-5.9); Red Cell Distribution Width 14.5 % (11.6-14.8); White Blood Cell Count 19.6 X10^3/uL (4.5-11.0)
[2022-07-30 13:00] LABS: INR 1.5 (0.9-1.3); Prothrombin Time 17.1 SECONDS (10.1-12.7)
[2022-07-30 13:04] LABS: Alanine Aminotransferase 42 IU/L (<50); Albumin 4.2 g/dL (3.5-5.0); Albumin Globulin Ratio 1.3 (1.0-2.8); Alkaline Phosphatase 58 U/L (38-126); Aspartate Aminotransferase 31 IU/L (17-59); BUN Creatinine Ratio 33.9 (6-22); Bilirubin Total 0.9 mg/dL (0.2-1.3); Blood Urea Nitrogen 56 mg/dL (9-20); Carbon Dioxide 20 mmol/L (22-32); Chloride 108 mmol/L (98-107); Estimated Glomerular Filt Rate 42 mL/min (>60); Globulin 3.3 g/dL (1.7-4.1); Glucose 190 mg/dL (80-110); HEMOLYSIS < 15 (0-50); Potassium 4.8 mmol/L (3.4-5.1); Sodium 143 mmol/L (137-145); Total Protein 7.5 g/dL (6.3-8.2)
--- NOTE | 2022-07-30 13:10 | DI.CT.S_ITS ---
PROCEDURE: CT ANGIO HEAD AND NECK INDICATIONS: right pupilary change, recent SDH/SAH TECHNIQUE: Noncontrast images were performed earlier in the day and not repeated. After the administration of intravenous contrast, 1 mm thick sections acquired from the aortic arch through the [place] of [place]. Post-contrast 4.5 mm thick sections then re-acquired from the foramen magnum to the vertex. 3-dimensional [id number] (MIP) and/or volume rendering reformats were acquired of the central intracranial vasculature and neck separately. For radiation dose reduction, the following was used: automated exposure control, adjustment of mA and/or kV according to patient size. COMPARISON: [facility], CT, CT CERVICAL SPINE WO CON, 07/30/2022, 12:08. [facility], CT, CT HEAD/BRAIN WO CON, 07/30/2022, 0:55. [facility], CT, CT HEAD/BRAIN WO CON, 07/30/2022, 12:08. FINDINGS: Image quality: Excellent. BRAIN: CSF spaces: Ventricles are normal in size and shape. Basal cisterns are patent. No extra-axial fluid collections. Brain: Although not well demonstrated on this study with IV contrast, there is again seen right-sided subdural hemorrhage, as manifested by asymmetric thickening of the right tentorium. This is not progressed compared to the recent prior examination. No midline shift. No intracranial masses. James-white matter interface appears intact. Skull and face: Right posterior scalp hematoma is again seen, without an associated calvarial fracture. Calvarium and facial bones appear intact, without suspicious lesions. Orbits appear normal. Sinuses: Sinuses and mastoids are clear. HEAD CT ANGIOGRAPHY: Anterior circulation: Intracranial internal carotid arteries are normal in size and flow. The flow within the paired anterior cerebral arteries is normal and symmetric. The flow within the middle cerebral arteries is normal and symmetric. The anterior communicating artery is not well seen. No aneurysms are seen. Posterior circulation: Visualized portions of the vertebral arteries demonstrate normal caliber, and join to form a normal appearing basilar artery. Flow within the posterior cerebral arteries is normal and symmetric. No aneurysms are seen. NECK CT ANGIOGRAPHY: Carotid system: The great vessels demonstrate a conventional anatomy as they arise from the aortic arch. The origins of the common carotid arteries appear patent. The common carotid arteries demonstrate normal caliber and courses. The bifurcation regions demonstrate atherosclerotic irregularity with calcification. There is approximately 50% narrowing seen involving the right proximal internal carotid artery. 60-70% narrowing can be seen involving the origin of the left internal carotid artery. The more distal internal carotid arteries demonstrate normal course and caliber. No findings of dissection can be seen. Posterior circulation: The origins of the vertebral arteries both appear widely patent. The more superior extracranial portions of both vertebral arteries also demonstrate normal courses and calibers. They join to form a normal appearing basilar artery. Soft tissues: Visualized neck soft tissues demonstrate no suspicious abnormalities. Bones: No suspicious bony lesions. Visualized cervical spine appears normally aligned. Moderate to prominent cervical spine degenerative change can be seen. IMPRESSION: No acute changes are seen to explain the patient's presenting symptoms. Mild right-sided subdural hemorrhage again seen, with thickening of the right tentorium. Right-sided scalp hematoma again seen posteriorly, without an associated calvarial fracture. Focal calcification with narrowing can be seen involving proximal internal carotid arteries, left worse than right. Any quantitative measurements of stenosis were performed using NASCET criteria. Dictated by: Donnell Yeboah M.D. on 07/30/2022 at 12:35 Approved by: Donnell Yeboah M.D. on 07/30/2022 at 12:40
--- NOTE | 2022-07-30 13:18 | PC.NURSE ---
Pt brought back to ED after discharging from [facility] and being unable to get out of the car when he got home due to weakness. Pt is unable to open right eye. Right pupil is at 5mm, unreactive and unequal from left eye which is at 2mm and reactive. Pt reports feeling really out of it after meds given at [facility]. Pt reports having been given oxycontin and something for nausea. states she noticed his right eye looking different before discharging from [facility]. Pt has multiple bruises from fall on right shoulder, left chest, and lower back/buttock. Chronic back pain at 5/10. Assisted to reposition for comfort.
[2022-07-30] MEDS: SODIUM CHLORIDE 0.9% 1,000 ML 1000 ML IV ×2 (14:42→16:47)
[2022-07-30] MEDS: ACETAMINOPHEN 325 MG TABLET 650 MG PO (16:46)
[2022-07-30 20:12] LABS: Add Manual Diff / Slide Review NO; Basophils Absolute Auto 100 /uL (0-100); Basophils Percent Auto 0.4 % (0-2); Eosinophils Absolute Auto 0 /uL (0-450); Eosinophils Percent Auto 0.1 % (2-4); Hemoglobin 11.5 g/dL (13.5-17.5); Lymphocytes Absolute Auto 2900 /uL (1100-4500); Mean Corpuscular HGB Conc 32.9 % (30-36); Mean Corpuscular Hemoglobin 33.2 PG (26-34); Monocytes Absolute Auto 2400 /uL (0-900); Monocytes Percent Auto 12.5 % (3-14); Neutrophils Absolute Auto 14000 /uL (1500-7000); Platelet Count 183 X10^3/uL (150-400); Red Blood Cell Count 3.46 X10^6/uL (4.5-5.9); Red Cell Distribution Width 14.6 % (11.6-14.8); White Blood Cell Count 19.4 X10^3/uL (4.5-11.0)
[2022-07-30 20:24] LABS: BUN Creatinine Ratio 32.3 (6-22); Blood Urea Nitrogen 61 mg/dL (9-20); Calcium 8.4 mg/dL (8.4-10.2); Carbon Dioxide 22 mmol/L (22-32); Chloride 107 mmol/L (98-107); Estimated Glomerular Filt Rate 36 mL/min (>60); Glucose 135 mg/dL (80-110); HEMOLYSIS < 15 (0-50); Sodium 143 mmol/L (137-145)
--- NOTE | 2022-07-30 20:52 | DI.US.S_ITS ---
PROCEDURE: US RENAL COMPLETE INDICATIONS: DEMETRICE TECHNIQUE: Real-time scanning was performed of the kidneys and bladder, with image documentation. COMPARISON: [facility], CT, CT CHEST ABD PEL W CON, 07/30/2022, 0:55. [facility], US, RENAL COMPLETE, 06/09/2015, 10:02. FINDINGS: Kidneys: Right kidney measures 13.2 cm long; left kidney measures 13.8 cm long. Right renal cortical thickness is 1.5 cm; left renal cortical thickness is 1.1 cm. Renal cortical echotexture appears within normal limits. No hydronephrosis. There is an echogenic focus in the right kidney compatible with a renal stone measuring up to 0.6 cm. Additional stones seen in the right and left kidneys on recent CT not well visualized on the current study. There are 2 simple appearing left renal cysts. Bladder: Urinary bladder was nondistended. Miscellaneous: No free pelvic fluid. IMPRESSION: 1. No evidence of hydronephrosis. 2. Small nonobstructing right renal stone. Additional stones seen in the bilateral kidneys on recent CT are not well visualized on the current study. Dictated by: Gigi Russo M.D. on 07/30/2022 at 22:56 Approved by: Gigi Russo M.D. on 07/30/2022 at 23:19
[2022-07-30 20:53] LABS: Creatinine Urine Random 145.7 mg/dL; Sodium Urine Random 8 mmol/L (30-90)
[2022-07-30 21:01] LABS: Appearance Urine UA SL CLOUDY; Bilirubin Urine UA 1+ (NEGATIVE); Color Urine UA YELLOW; Glucose Urine UA NEGATIVE (Negative); Ketones Urine UA TRACE (NEGATIVE); Leukocyte Esterase Urine UA NEGATIVE (NEGATIVE); Nitrite Urine UA NEGATIVE (Negative); Occult Blood Urine UA TRACE-INTACT (Negative); Protein Urine UA 1+ (Negative)
[2022-07-30 21:08] LABS: Ictotest Urine Negative (Negative)
[2022-07-30 21:11] LABS: Bacteria Urine None Seen; Culture Indicated Urine Cult Not Indicated; RBC Urine 0-1/HPF (0-5/HPF); Squamous Epithelial Cell Urine 1-5 /HPF (0-5/HPF); WBC Urine 1-5/HPF (0-5/HPF)
[2022-07-30] MEDS: LACTATED RINGERS 1,000 ML 1000 ML IV (22:37)
[2022-07-31] VITALS (184 sets, daily range): BP systolic 106–163; BP diastolic 57–85; PULSE 67–105; RESP 6–32; TEMP 36.6–37.4; O2SAT 86–97; BMI 28.7
[2022-07-31] MEDS: LACTATED RINGERS 1,000 ML 175 ML IV (00:49)
--- NOTE | 2022-07-31 01:14 | P.HP_ITS ---
History of Present Illness History of Present Illness Date Patient Seen: 07/31/22 Time Patient Seen: 01:14 Chief complaint: Recent subdural,increased weakness,unequal pupils Narrative: Hadley Wilkes is a 77 y.o. male with a history of atrial fibrillation anticoag ulated on apixaban, NSTEMI, wet macular degeneration, kidney stones, being worked up for myositis, hx of bladder cancer was in his usual state of health when he was on a landing in his home and apparently fell down a flight of 9 stairs and sustained a subdural hematoma and a left frontal subacrachnoid hemmorrhage yesterday. He was airlifted to [facility] and apparently discharged earlier today. He represented to the ED today with increased weakness and inability to walk, right eye blurrieness X 6 hours. Stated he was administered multiple doses of IV dilaudid. He now complains of weakness, right eye and left sided rib pain determined to have sustained a buckle fracture and mild hypotension. Prior to transfer to [facility], 6 CTs were done in additional to another non-contrast CT at [facility]. He presented with worsening creatinine values and went from a normal eGFR of 60 to 36. He is being requested for admission for an acute kidney injury. Head and neck CTA was repeated today confirming no acute changes from previous imaging studies done the day before. Indicated a mild amount of subdural/subaractnoid blood along the right cavernous sinus. He is afebrile, blood pressure 107/63 heart rate 80 respiratory rate 17 oxygen saturation of 97% on 2 on a nasal CPAP machine he weighs 104.3 kg with a BMI of 28.7. WBC is 19.4 he is mildly anemic with hemoglobin and hematocrit of 11.5 and 35 he does have a left shift of 14,000 PT is 17.1 INR 1.5 creatinine is 1.89 however his baseline yesterday was normal his EGFR is 36 glucose 135 UA is unremarkable, COVID 19 PCR done at 2:00 a.m. this morning was negative. Patient History Medical History Coronary artery disease Hx of non-ST elevation myocardial infarction (NSTEMI) Hyperlipidemia Hypertension Kidney stones Low back pain Shoulder pain Surgical History H/O lithotripsy Hx of appendectomy Hx of cardiac catheterization Family & Social History Family History Mother Renal cancer Father War operations involving destruction of aircraft due to collision with other aircraft, personnel, sequela Safety & Behavioral: Feels Safe in Current Yes Environment Been Physically Hurt or No Threatened By a Person Tobacco & Substance use: Smoking Status Former smoker alcohol intake frequency a few times a week Substance Use Type does not use Meds Home Medications and Allergies Home Medications Medication Instructions Recorded Confirmed Type acetaminophen 325 mg tablet 1 dose PO PRN PRN pain 08/12/18 06/25/22 History aspirin 81 mg tablet,delayed 81 mg PO DAILY 08/12/18 07/31/22 History release turmeric 1 tab PO DAILY 08/12/18 06/25/22 History vit C 250 mg-vit E 90 mg-zinc 40 1 cap PO BID 08/12/18 06/25/22 History mg-copper 1 [id number]-lkuqsa capsule (PreserVision AREDS-2) Resmed Airsense 10 CPAP #1 ea 04/29/19 06/25/22 History vit C 250 mg-vit E 200 unit-zinc 1 tab PO BID 10/04/20 06/25/22 History 12.5 mg-copper 1 at-odu-uovusl tablet (ICaps AREDS2 (copper citrate)) naltrexone hcl 4.5 mg PO DAILY #90 caps 08/29/21 06/25/22 Rx losartan 100 mg tablet 100 mg PO DAILY #15 tabs 02/04/22 07/31/22 Rx alirocumab 150 mg/mL subcutaneous 150 mg SUBCUT Q14D 04/03/22 06/25/22 History pen injector (Praluent Pen) allopurinol 300 mg tablet 300 mg PO DAILY #90 tabs 04/03/22 07/31/22 Rx apixaban 5 mg tablet (Eliquis) 5 mg PO BID 04/03/22 06/25/22 History icosapent ethyl 1 gram capsule 2 g PO BID 04/03/22 06/25/22 History metoprolol succinate 50 mg 50 mg PO DAILY 04/03/22 06/25/22 History tablet,extended release 24 hr amlodipine 10 mg tablet 10 mg PO DAILY 05/20/22 07/31/22 History carvedilol 12.5 mg tablet 12.5 mg PO DAILY 05/20/22 07/31/22 History hydrochlorothiazide 25 mg tablet 25 mg PO DAILY 05/20/22 07/31/22 History methocarbamol 500 mg tablet 500 mg PO TID #60 tabs 05/20/22 06/25/22 Rx lidocaine 5 % topical patch 1 patch topical DAILY #30 ea 06/25/22 06/25/22 Rx Allergies Allergy/AdvReac Type Severity Reaction Status Date / Time prednisone Allergy Severe Confusion Verified 07/30/22 12:16 celecoxib [From Celebrex] Allergy Intermediate Gastrointestinal Verified 07/30/22 12:16 Upset oxycodone [From Percocet] Allergy Intermediate Nausea Verified 07/30/22 12:16 Syxkwak-[id number] Reductase AdvReac Severe Autoimmune Verified 07/30/22 12:16 Inhibitor myositis [Rbyvpqs-Drd-Sek Reductase Inhibitor] codeine AdvReac Mild Redness of Verified 07/30/22 12:16 Skin Review of Systems Review of Systems ROS: Yes All systems reviewed with the patient and are negative except as otherwise documented Exam Vital Signs (past 8 hours): - 07/30/22 17:16 07/30/22 17:16 07/30/22 17:20 Pulse Rate 79 78 Pulse Rate [Orthostatic Lying] Pulse Rate [Orthostatic Sitting] Pulse Rate [Orthostatic Standing] Respiratory Rate 22 16 Blood Pressure 101/61 Blood Pressure [Orthostatic Lying] Blood Pressure [Orthostatic Sitting] Blood Pressure [Orthostatic Standing] Pulse Oximetry 94 91 Oxygen Delivery Method Oxygen Flow Rate 07/30/22 17:20 07/30/22 17:25 07/30/22 17:25 Pulse Rate 79 Pulse Rate [Orthostatic Lying] Pulse Rate [Orthostatic Sitting] Pulse Rate [Orthostatic Standing] Respiratory Rate 17 Blood Pressure 101/64 103/63 Blood Pressure [Orthostatic Lying] Blood Pressure [Orthostatic Sitting] Blood Pressure [Orthostatic Standing] Pulse Oximetry 91 Oxygen Delivery Method Oxygen Flow Rate 07/30/22 17:30 07/30/22 17:30 07/30/22 17:35 Pulse Rate 79 79 Pulse Rate [Orthostatic Lying] Pulse Rate [Orthostatic Sitting] Pulse Rate [Orthostatic Standing] Respiratory Rate 17 17 Blood Pressure 106/66 Blood Pressure [Orthostatic Lying] Blood Pressure [Orthostatic Sitting] Blood Pressure [Orthostatic Standing] Pulse Oximetry 91 94 Oxygen Delivery Method Oxygen Flow Rate 07/30/22 17:35 07/30/22 17:40 07/30/22 17:40 Pulse Rate 78 Pulse Rate [Orthostatic Lying] Pulse Rate [Orthostatic Sitting] Pulse Rate [Orthostatic Standing] Respiratory Rate 16 Blood Pressure 112/69 118/70 Blood Pressure [Orthostatic Lying] Blood Pressure [Orthostatic Sitting] Blood Pressure [Orthostatic Standing] Pulse Oximetry 91 Oxygen Delivery Method Oxygen Flow Rate 07/30/22 17:45 07/30/22 17:45 07/30/22 17:50 Pulse Rate 80 Pulse Rate [Orthostatic Lying] Pulse Rate [Orthostatic Sitting] Pulse Rate [Orthostatic Standing] Respiratory Rate 23 Blood Pressure 109/61 101/60 Blood Pressure [Orthostatic Lying] Blood Pressure [Orthostatic Sitting] Blood Pressure [Orthostatic Standing] Pulse Oximetry 93 Oxygen Delivery Method Oxygen Flow Rate 07/30/22 17:50 07/30/22 18:33 07/30/22 17:55 Pulse Rate 77 76 Pulse Rate [Orthostatic Lying] 80 Pulse Rate [Orthostatic Sitting] 95 H Pulse Rate [Orthostatic Standing] 99 H Respiratory Rate 17 16 Blood Pressure Blood Pressure [Orthostatic Lying] 129/66 Blood Pressure [Orthostatic Sitting] 109/55 L Blood Pressure [Orthostatic Standing] 92/54 L Pulse Oximetry 93 91 Oxygen Delivery Method Oxygen Flow Rate 07/30/22 17:55 07/30/22 18:00 07/30/22 18:09 Pulse Rate 77 78 Pulse Rate [Orthostatic Lying] Pulse Rate [Orthostatic Sitting] Pulse Rate [Orthostatic Standing] Respiratory Rate 17 16 Blood Pressure 101/59 L Blood Pressure [Orthostatic Lying] Blood Pressure [Orthostatic Sitting] Blood Pressure [Orthostatic Standing] Pulse Oximetry 93 Oxygen Delivery Method Oxygen Flow Rate 07/30/22 18:09 07/30/22 18:10 07/30/22 18:10 Pulse Rate 78 Pulse Rate [Orthostatic Lying] Pulse Rate [Orthostatic Sitting] Pulse Rate [Orthostatic Standing] Respiratory Rate 17 Blood Pressure 122/68 129/66 Blood Pressure [Orthostatic Lying] Blood Pressure [Orthostatic Sitting] Blood Pressure [Orthostatic Standing] Pulse Oximetry 95 Oxygen Delivery Method Oxygen Flow Rate 07/30/22 18:15 07/30/22 18:15 07/30/22 18:17 Pulse Rate 93 H 98 H Pulse Rate [Orthostatic Lying] Pulse Rate [Orthostatic Sitting] Pulse Rate [Orthostatic Standing] Respiratory Rate 20 22 Blood Pressure 109/55 L Blood Pressure [Orthostatic Lying] Blood Pressure [Orthostatic Sitting] Blood Pressure [Orthostatic Standing] Pulse Oximetry 97 Oxygen Delivery Method Oxygen Flow Rate 07/30/22 18:17 07/30/22 18:24 07/30/22 18:24 Pulse Rate 101 H Pulse Rate [Orthostatic Lying] Pulse Rate [Orthostatic Sitting] Pulse Rate [Orthostatic Standing] Respiratory Rate Blood Pressure 92/54 L 127/73 Blood Pressure [Orthostatic Lying] Blood Pressure [Orthostatic Sitting] Blood Pressure [Orthostatic Standing] Pulse Oximetry 98 Oxygen Delivery Method Oxygen Flow Rate 07/30/22 18:30 07/30/22 18:35 07/30/22 18:40 Pulse Rate 83 87 84 Pulse Rate [Orthostatic Lying] Pulse Rate [Orthostatic Sitting] Pulse Rate [Orthostatic Standing] Respiratory Rate 21 24 18 Blood Pressure Blood Pressure [Orthostatic Lying] Blood Pressure [Orthostatic Sitting] Blood Pressure [Orthostatic Standing] Pulse Oximetry 97 94 94 Oxygen Delivery Method Oxygen Flow Rate 07/30/22 18:45 07/30/22 18:50 07/30/22 18:55 Pulse Rate 82 81 81 Pulse Rate [Orthostatic Lying] Pulse Rate [Orthostatic Sitting] Pulse Rate [Orthostatic Standing] Respiratory Rate 20 22 19 Blood Pressure Blood Pressure [Orthostatic Lying] Blood Pressure [Orthostatic Sitting] Blood Pressure [Orthostatic Standing] Pulse Oximetry 92 91 94 Oxygen Delivery Method Oxygen Flow Rate 07/30/22 18:55 07/30/22 19:00 07/30/22 19:00 Pulse Rate 80 Pulse Rate [Orthostatic Lying] Pulse Rate [Orthostatic Sitting] Pulse Rate [Orthostatic Standing] Respiratory Rate 18 Blood Pressure 101/62 108/61 Blood Pressure [Orthostatic Lying] Blood Pressure [Orthostatic Sitting] Blood Pressure [Orthostatic Standing] Pulse Oximetry 91 Oxygen Delivery Method Oxygen Flow Rate 07/30/22 19:05 07/30/22 19:05 07/30/22 19:10 Pulse Rate 80 Pulse Rate [Orthostatic Lying] Pulse Rate [Orthostatic Sitting] Pulse Rate [Orthostatic Standing] Respiratory Rate 20 Blood Pressure 106/61 108/61 Blood Pressure [Orthostatic Lying] Blood Pressure [Orthostatic Sitting] Blood Pressure [Orthostatic Standing] Pulse Oximetry 94 Oxygen Delivery Method Oxygen Flow Rate 07/30/22 19:10 07/30/22 19:15 07/30/22 19:15 Pulse Rate 79 80 Pulse Rate [Orthostatic Lying] Pulse Rate [Orthostatic Sitting] Pulse Rate [Orthostatic Standing] Respiratory Rate 18 18 Blood Pressure 107/58 L Blood Pressure [Orthostatic Lying] Blood Pressure [Orthostatic Sitting] Blood Pressure [Orthostatic Standing] Pulse Oximetry 91 Oxygen Delivery Method Oxygen Flow Rate 07/30/22 19:20 07/30/22 19:20 07/30/22 19:25 Pulse Rate 79 Pulse Rate [Orthostatic Lying] Pulse Rate [Orthostatic Sitting] Pulse Rate [Orthostatic Standing] Respiratory Rate 18 Blood Pressure 108/59 L 112/61 Blood Pressure [Orthostatic Lying] Blood Pressure [Orthostatic Sitting] Blood Pressure [Orthostatic Standing] Pulse Oximetry Oxygen Delivery Method Oxygen Flow Rate 07/30/22 19:25 07/30/22 19:30 07/30/22 19:30 Pulse Rate 79 78 Pulse Rate [Orthostatic Lying] Pulse Rate [Orthostatic Sitting] Pulse Rate [Orthostatic Standing] Respiratory Rate 17 18 Blood Pressure 117/58 L Blood Pressure [Orthostatic Lying] Blood Pressure [Orthostatic Sitting] Blood Pressure [Orthostatic Standing] Pulse Oximetry 91 91 Oxygen Delivery Method Oxygen Flow Rate 07/30/22 19:35 07/30/22 19:35 07/30/22 19:40 Pulse Rate 80 Pulse Rate [Orthostatic Lying] Pulse Rate [Orthostatic Sitting] Pulse Rate [Orthostatic Standing] Respiratory Rate 18 Blood Pressure 109/59 L 116/55 L Blood Pressure [Orthostatic Lying] Blood Pressure [Orthostatic Sitting] Blood Pressure [Orthostatic Standing] Pulse Oximetry 91 Oxygen Delivery Method Oxygen Flow Rate 07/30/22 19:40 07/30/22 19:45 07/30/22 19:45 Pulse Rate 85 79 Pulse Rate [Orthostatic Lying] Pulse Rate [Orthostatic Sitting] Pulse Rate [Orthostatic Standing] Respiratory Rate 16 18 Blood Pressure 119/58 L Blood Pressure [Orthostatic Lying] Blood Pressure [Orthostatic Sitting] Blood Pressure [Orthostatic Standing] Pulse Oximetry 93 91 Oxygen Delivery Method Oxygen Flow Rate 07/30/22 19:50 07/30/22 19:50 07/30/22 19:55 Pulse Rate 79 Pulse Rate [Orthostatic Lying] Pulse Rate [Orthostatic Sitting] Pulse Rate [Orthostatic Standing] Respiratory Rate 18 Blood Pressure 109/56 L 107/59 L Blood Pressure [Orthostatic Lying] Blood Pressure [Orthostatic Sitting] Blood Pressure [Orthostatic Standing] Pulse Oximetry 91 Oxygen Delivery Method Oxygen Flow Rate 07/30/22 19:55 07/30/22 20:00 07/30/22 20:00 Pulse Rate 78 96 H Pulse Rate [Orthostatic Lying] Pulse Rate [Orthostatic Sitting] Pulse Rate [Orthostatic Standing] Respiratory Rate 23 Blood Pressure 118/56 L Blood Pressure [Orthostatic Lying] Blood Pressure [Orthostatic Sitting] Blood Pressure [Orthostatic Standing] Pulse Oximetry 93 94 Oxygen Delivery Method Oxygen Flow Rate 07/30/22 20:05 07/30/22 20:05 07/30/22 20:10 Pulse Rate 87 Pulse Rate [Orthostatic Lying] Pulse Rate [Orthostatic Sitting] Pulse Rate [Orthostatic Standing] Respiratory Rate 22 Blood Pressure 111/54 L 109/57 L Blood Pressure [Orthostatic Lying] Blood Pressure [Orthostatic Sitting] Blood Pressure [Orthostatic Standing] Pulse Oximetry 96 Oxygen Delivery Method Oxygen Flow Rate 07/30/22 20:10 07/30/22 20:20 07/30/22 20:21 Pulse Rate 90 99 H 97 H Pulse Rate [Orthostatic Lying] Pulse Rate [Orthostatic Sitting] Pulse Rate [Orthostatic Standing] Respiratory Rate 23 Blood Pressure Blood Pressure [Orthostatic Lying] Blood Pressure [Orthostatic Sitting] Blood Pressure [Orthostatic Standing] Pulse Oximetry 94 Oxygen Delivery Method Oxygen Flow Rate 07/30/22 20:21 07/30/22 20:29 07/30/22 20:29 Pulse Rate 90 Pulse Rate [Orthostatic Lying] Pulse Rate [Orthostatic Sitting] Pulse Rate [Orthostatic Standing] Respiratory Rate 24 Blood Pressure 98/77 121/63 Blood Pressure [Orthostatic Lying] Blood Pressure [Orthostatic Sitting] Blood Pressure [Orthostatic Standing] Pulse Oximetry 98 Oxygen Delivery Method Oxygen Flow Rate 07/30/22 20:30 07/30/22 20:30 07/30/22 20:35 Pulse Rate 87 Pulse Rate [Orthostatic Lying] Pulse Rate [Orthostatic Sitting] Pulse Rate [Orthostatic Standing] Respiratory Rate 21 Blood Pressure 114/57 L 99/53 L Blood Pressure [Orthostatic Lying] Blood Pressure [Orthostatic Sitting] Blood Pressure [Orthostatic Standing] Pulse Oximetry 97 Oxygen Delivery Method Oxygen Flow Rate 07/30/22 20:35 07/30/22 20:40 07/30/22 20:40 Pulse Rate 84 83 Pulse Rate [Orthostatic Lying] Pulse Rate [Orthostatic Sitting] Pulse Rate [Orthostatic Standing] Respiratory Rate 19 19 Blood Pressure 81/51 L Blood Pressure [Orthostatic Lying] Blood Pressure [Orthostatic Sitting] Blood Pressure [Orthostatic Standing] Pulse Oximetry 92 91 Oxygen Delivery Method Oxygen Flow Rate 07/30/22 20:45 07/30/22 20:45 07/30/22 20:49 Pulse Rate 85 83 Pulse Rate [Orthostatic Lying] Pulse Rate [Orthostatic Sitting] Pulse Rate [Orthostatic Standing] Respiratory Rate 17 21 Blood Pressure 84/53 L Blood Pressure [Orthostatic Lying] Blood Pressure [Orthostatic Sitting] Blood Pressure [Orthostatic Standing] Pulse Oximetry 93 Oxygen Delivery Method Oxygen Flow Rate 07/30/22 20:49 07/30/22 20:50 07/30/22 20:50 Pulse Rate 84 Pulse Rate [Orthostatic Lying] Pulse Rate [Orthostatic Sitting] Pulse Rate [Orthostatic Standing] Respiratory Rate 20 Blood Pressure 86/55 L 93/56 L Blood Pressure [Orthostatic Lying] Blood Pressure [Orthostatic Sitting] Blood Pressure [Orthostatic Standing] Pulse Oximetry 90 L Oxygen Delivery Method Nasal Cannula Oxygen Flow Rate 2 07/30/22 20:55 07/30/22 20:55 07/30/22 21:00 Pulse Rate 82 Pulse Rate [Orthostatic Lying] Pulse Rate [Orthostatic Sitting] Pulse Rate [Orthostatic Standing] Respiratory Rate 16 Blood Pressure 91/53 L 100/59 L Blood Pressure [Orthostatic Lying] Blood Pressure [Orthostatic Sitting] Blood Pressure [Orthostatic Standing] Pulse Oximetry 96 Oxygen Delivery Method Nasal Cannula Oxygen Flow Rate 2 07/30/22 21:00 07/30/22 21:05 07/30/22 21:05 Pulse Rate 79 80 Pulse Rate [Orthostatic Lying] Pulse Rate [Orthostatic Sitting] Pulse Rate [Orthostatic Standing] Respiratory Rate 18 18 Blood Pressure 102/58 L Blood Pressure [Orthostatic Lying] Blood Pressure [Orthostatic Sitting] Blood Pressure [Orthostatic Standing] Pulse Oximetry 94 94 Oxygen Delivery Method Oxygen Flow Rate 07/30/22 21:10 07/30/22 21:10 07/30/22 21:15 Pulse Rate 81 Pulse Rate [Orthostatic Lying] Pulse Rate [Orthostatic Sitting] Pulse Rate [Orthostatic Standing] Respiratory Rate 16 Blood Pressure 103/57 L 109/56 L Blood Pressure [Orthostatic Lying] Blood Pressure [Orthostatic Sitting] Blood Pressure [Orthostatic Standing] Pulse Oximetry 93 Oxygen Delivery Method Oxygen Flow Rate 07/30/22 21:15 07/30/22 21:20 07/30/22 21:20 Pulse Rate 77 77 Pulse Rate [Orthostatic Lying] Pulse Rate [Orthostatic Sitting] Pulse Rate [Orthostatic Standing] Respiratory Rate 17 19 Blood Pressure 113/58 L Blood Pressure [Orthostatic Lying] Blood Pressure [Orthostatic Sitting] Blood Pressure [Orthostatic Standing] Pulse Oximetry 93 95 Oxygen Delivery Method Oxygen Flow Rate 07/30/22 21:25 07/30/22 21:25 07/30/22 21:30 Pulse Rate 77 Pulse Rate [Orthostatic Lying] Pulse Rate [Orthostatic Sitting] Pulse Rate [Orthostatic Standing] Respiratory Rate 18 Blood Pressure 113/55 L 118/60 Blood Pressure [Orthostatic Lying] Blood Pressure [Orthostatic Sitting] Blood Pressure [Orthostatic Standing] Pulse Oximetry 95 Oxygen Delivery Method Oxygen Flow Rate 07/30/22 21:30 07/30/22 21:35 07/30/22 21:35 Pulse Rate 78 91 H Pulse Rate [Orthostatic Lying] Pulse Rate [Orthostatic Sitting] Pulse Rate [Orthostatic Standing] Respiratory Rate 18 32 H Blood Pressure 119/63 Blood Pressure [Orthostatic Lying] Blood Pressure [Orthostatic Sitting] Blood Pressure [Orthostatic Standing] Pulse Oximetry 93 94 Oxygen Delivery Method Oxygen Flow Rate 07/30/22 21:40 07/30/22 21:40 07/30/22 21:45 Pulse Rate 90 90 Pulse Rate [Orthostatic Lying] Pulse Rate [Orthostatic Sitting] Pulse Rate [Orthostatic Standing] Respiratory Rate 23 35 H Blood Pressure 120/67 Blood Pressure [Orthostatic Lying] Blood Pressure [Orthostatic Sitting] Blood Pressure [Orthostatic Standing] Pulse Oximetry 97 93 Oxygen Delivery Method Oxygen Flow Rate 07/30/22 21:50 07/30/22 21:50 07/30/22 21:55 Pulse Rate 83 84 Pulse Rate [Orthostatic Lying] Pulse Rate [Orthostatic Sitting] Pulse Rate [Orthostatic Standing] Respiratory Rate 23 30 H Blood Pressure 127/64 Blood Pressure [Orthostatic Lying] Blood Pressure [Orthostatic Sitting] Blood Pressure [Orthostatic Standing] Pulse Oximetry 96 92 Oxygen Delivery Method Oxygen Flow Rate 07/30/22 22:00 07/30/22 22:00 07/30/22 22:05 Pulse Rate 88 Pulse Rate [Orthostatic Lying] Pulse Rate [Orthostatic Sitting] Pulse Rate [Orthostatic Standing] Respiratory Rate 22 Blood Pressure 107/59 L 108/52 L Blood Pressure [Orthostatic Lying] Blood Pressure [Orthostatic Sitting] Blood Pressure [Orthostatic Standing] Pulse Oximetry 95 Oxygen Delivery Method Oxygen Flow Rate 07/30/22 22:05 07/30/22 22:10 07/30/22 22:10 Pulse Rate 80 82 Pulse Rate [Orthostatic Lying] Pulse Rate [Orthostatic Sitting] Pulse Rate [Orthostatic Standing] Respiratory Rate 18 21 Blood Pressure 110/52 L Blood Pressure [Orthostatic Lying] Blood Pressure [Orthostatic Sitting] Blood Pressure [Orthostatic Standing] Pulse Oximetry 95 96 Oxygen Delivery Method Oxygen Flow Rate 07/30/22 22:15 07/30/22 22:15 07/30/22 22:20 Pulse Rate 81 Pulse Rate [Orthostatic Lying] Pulse Rate [Orthostatic Sitting] Pulse Rate [Orthostatic Standing] Respiratory Rate 22 Blood Pressure 137/66 131/51 L Blood Pressure [Orthostatic Lying] Blood Pressure [Orthostatic Sitting] Blood Pressure [Orthostatic Standing] Pulse Oximetry 97 Oxygen Delivery Method Oxygen Flow Rate 07/30/22 22:20 07/30/22 22:25 07/30/22 22:25 Pulse Rate 78 79 Pulse Rate [Orthostatic Lying] Pulse Rate [Orthostatic Sitting] Pulse Rate [Orthostatic Standing] Respiratory Rate 25 H 21 Blood Pressure 96/51 L Blood Pressure [Orthostatic Lying] Blood Pressure [Orthostatic Sitting] Blood Pressure [Orthostatic Standing] Pulse Oximetry 97 96 Oxygen Delivery Method Oxygen Flow Rate 07/30/22 22:30 07/30/22 22:30 07/30/22 22:35 Pulse Rate 75 Pulse Rate [Orthostatic Lying] Pulse Rate [Orthostatic Sitting] Pulse Rate [Orthostatic Standing] Respiratory Rate 18 Blood Pressure 100/55 L 101/59 L Blood Pressure [Orthostatic Lying] Blood Pressure [Orthostatic Sitting] Blood Pressure [Orthostatic Standing] Pulse Oximetry 96 Oxygen Delivery Method Oxygen Flow Rate 07/30/22 22:35 07/30/22 22:40 07/30/22 22:40 Pulse Rate 77 74 Pulse Rate [Orthostatic Lying] Pulse Rate [Orthostatic Sitting] Pulse Rate [Orthostatic Standing] Respiratory Rate 27 H 23 Blood Pressure 111/58 L Blood Pressure [Orthostatic Lying] Blood Pressure [Orthostatic Sitting] Blood Pressure [Orthostatic Standing] Pulse Oximetry 97 97 Oxygen Delivery Method Oxygen Flow Rate 07/30/22 22:45 07/30/22 22:50 07/30/22 22:55 Pulse Rate 126 H 118 H 75 Pulse Rate [Orthostatic Lying] Pulse Rate [Orthostatic Sitting] Pulse Rate [Orthostatic Standing] Respiratory Rate 17 32 H 21 Blood Pressure Blood Pressure [Orthostatic Lying] Blood Pressure [Orthostatic Sitting] Blood Pressure [Orthostatic Standing] Pulse Oximetry 96 96 97 Oxygen Delivery Method Oxygen Flow Rate 07/30/22 23:00 07/30/22 23:00 07/30/22 23:05 Pulse Rate 75 81 Pulse Rate [Orthostatic Lying] Pulse Rate [Orthostatic Sitting] Pulse Rate [Orthostatic Standing] Respiratory Rate 15 32 H Blood Pressure 114/58 L Blood Pressure [Orthostatic Lying] Blood Pressure [Orthostatic Sitting] Blood Pressure [Orthostatic Standing] Pulse Oximetry 97 92 Oxygen Delivery Method Oxygen Flow Rate 07/30/22 23:10 07/30/22 23:10 07/30/22 23:15 Pulse Rate 75 80 Pulse Rate [Orthostatic Lying] Pulse Rate [Orthostatic Sitting] Pulse Rate [Orthostatic Standing] Respiratory Rate 17 30 H Blood Pressure 116/57 L Blood Pressure [Orthostatic Lying] Blood Pressure [Orthostatic Sitting] Blood Pressure [Orthostatic Standing] Pulse Oximetry 93 84 L Oxygen Delivery Method Oxygen Flow Rate 07/30/22 23:20 07/30/22 23:20 07/30/22 23:25 Pulse Rate 83 90 Pulse Rate [Orthostatic Lying] Pulse Rate [Orthostatic Sitting] Pulse Rate [Orthostatic Standing] Respiratory Rate 28 H 32 H Blood Pressure 94/59 L Blood Pressure [Orthostatic Lying] Blood Pressure [Orthostatic Sitting] Blood Pressure [Orthostatic Standing] Pulse Oximetry 90 L Oxygen Delivery Method Oxygen Flow Rate 07/30/22 23:30 07/30/22 23:37 07/30/22 23:40 Pulse Rate 91 H 91 H Pulse Rate [Orthostatic Lying] Pulse Rate [Orthostatic Sitting] Pulse Rate [Orthostatic Standing] Respiratory Rate 41 H Blood Pressure 107/63 Blood Pressure [Orthostatic Lying] Blood Pressure [Orthostatic Sitting] Blood Pressure [Orthostatic Standing] Pulse Oximetry 78 L 83 L Oxygen Delivery Method Oxygen Flow Rate 07/30/22 23:40 07/30/22 23:45 Pulse Rate 81 80 Pulse Rate [Orthostatic Lying] Pulse Rate [Orthostatic Sitting] Pulse Rate [Orthostatic Standing] Respiratory Rate 24 17 Blood Pressure Blood Pressure [Orthostatic Lying] Blood Pressure [Orthostatic Sitting] Blood Pressure [Orthostatic Standing] Pulse Oximetry 82 L Oxygen Delivery Method Oxygen Flow Rate Oxygen Delivery Method Nasal Cannula Oxygen Flow Rate 2 Narrative Exam Narrative: Gen: Alert, oriented, obese 77 y.o. male, NAD HEENT: normocephalic appearing, right eye palsy, conjunctiva clear, sclera non- icteric, oral mucosa pink and moist Neck: supple, full ROM, no JVD, trachea is midline Resp: Using a CPAP machine, Lungs CTA, non-labored breathing left posterior chest tenderness CV: RRR, no murmur or rubs Abd: soft, non-tender, normoactive BTs Skin: Approximately 10 cm area of eccymosis on right upper posterior shoulder Neuro: Alert and oriented X 4 w/no focal deficits. Speech clear and coherent. Extremities: moves all 4 extremities, is ambulatory, negative Lorrie?s sign Psyche: normal mood and affect. Objective Labs 07/30/22 20:00 07/30/22 20:00 Labs: Laboratory Results - last 24 hr 07/30/22 07/30/22 07/30/22 12:30 12:30 12:30 WBC 19.6 H RBC 3.94 L Hgb 12.9 L Hct 39.9 L MCV 101.3 H MCH 32.9 MCHC 32.5 RDW 14.5 Plt Count 225 Neut % (Auto) 83.4 H Lymph % (Auto) 8.7 L [place] % (Auto) 7.7 Eos % (Auto) 0.0 L Baso % (Auto) 0.2 Neut # (Auto) 62849 H Lymph # (Auto) 1700 [place] # (Auto) 1500 H Eos # (Auto) 0 Baso # (Auto) 0 PT 17.1 H INR 1.5 H Sodium 143 Potassium 4.8 Chloride 108 H Carbon Dioxide 20 L BUN 56 H Creatinine 1.65 H Estimated GFR 42 L BUN/Creatinine Ratio 33.9 H Glucose 190 H Calcium 9.0 Total Bilirubin 0.9 AST 31 ALT 42 Alkaline Phosphatase 58 Total Protein 7.5 Albumin 4.2 Globulin 3.3 Albumin/Globulin Ratio 1.3 Urine Color Urine Appearance Urine pH Ur Specific [place] Urine Protein Urine Glucose (UA) Urine Ketones Urine Occult Blood Urine Nitrate Urine Bilirubin Ur Bilirubin Confirm Urine Urobilinogen Ur Leukocyte Esterase Urine RBC Urine WBC Ur Squamous Epith Cells Urine Bacteria Ur Culture Indicated? Ur Random Sodium Urine Creatinine 07/30/22 07/30/22 07/30/22 20:00 20:00 20:20 WBC 19.4 H RBC 3.46 L Hgb 11.5 L Hct 35.0 L MCV 101.0 H MCH 33.2 MCHC 32.9 RDW 14.6 Plt Count 183 Neut % (Auto) 72.0 Lymph % (Auto) 15.0 L [place] % (Auto) 12.5 Eos % (Auto) 0.1 L Baso % (Auto) 0.4 Neut # (Auto) 03153 H Lymph # (Auto) 2900 [place] # (Auto) 2400 H Eos # (Auto) 0 Baso # (Auto) 100 PT INR Sodium 143 Potassium 5.0 Chloride 107 Carbon Dioxide 22 BUN 61 H Creatinine 1.89 H Estimated GFR 36 L BUN/Creatinine Ratio 32.3 H Glucose 135 H Calcium 8.4 Total Bilirubin AST ALT Alkaline Phosphatase Total Protein Albumin Globulin Albumin/Globulin Ratio Urine Color Urine Appearance Urine pH Ur Specific [place] Urine Protein Urine Glucose (UA) Urine Ketones Urine Occult Blood Urine Nitrate Urine Bilirubin Ur Bilirubin Confirm Urine Urobilinogen Ur Leukocyte Esterase Urine RBC Urine WBC Ur Squamous Epith Cells Urine Bacteria Ur Culture Indicated? Ur Random Sodium 8 L Urine Creatinine 145.7 07/30/22 20:30 WBC RBC Hgb Hct MCV MCH MCHC RDW Plt Count Neut % (Auto) Lymph % (Auto) [place] % (Auto) Eos % (Auto) Baso % (Auto) Neut # (Auto) Lymph # (Auto) [place] # (Auto) Eos # (Auto) Baso # (Auto) PT INR Sodium Potassium Chloride Carbon Dioxide BUN Creatinine Estimated GFR BUN/Creatinine Ratio Glucose Calcium Total Bilirubin AST ALT Alkaline Phosphatase Total Protein Albumin Globulin Albumin/Globulin Ratio Urine Color Yellow Urine Appearance Sl cloudy Urine pH 5.0 Ur Specific [place] 1.010 Urine Protein 1+ H Urine Glucose (UA) Negative Urine Ketones Trace H Urine Occult Blood Trace-intact Urine Nitrate Negative Urine Bilirubin 1+ H Ur Bilirubin Confirm Negative Urine Urobilinogen 1.0 Ur Leukocyte Esterase Negative Urine RBC 0-1/hpf Urine WBC 1-5/hpf Ur Squamous Epith Cells 1-5 /hpf Urine Bacteria None seen Ur Culture Indicated? Cult not indicated Ur Random Sodium Urine Creatinine Assessment & Plan Assessment & Plan narrative: Hadley Wilkes is admitted for an acute DEMETRICE likely secondary to multiple contrast imaging studies due to a fall sustained yesterday and found to have a subarachnoid hemmorhage and subdural hematoma. Acute kidney injury, present on admission * He received 3L fluid boluses, continue LR at 175 ml/hour * Recheck electrolytes and renal function in the am * Renal u/s only reported non-obstructing stones, chronic Weakness, likely secondary to trauma and multiple doses of IV opioids for pain\ * Continue IVF Subarachnoid hemmorhage and subdural hematoma, acute and present on admission * Monitor and treat for pain * [facility] recommended holding anticoagulation for 5 days which would be resumed FridayAugust 05 due to bleeding risk 3rd cranial nerve palsy, right eye * Observe. ED provider discussed case with neurology, it is felt that the extension of the hemmorhage into the right caverous sinus is likely responsible for his 3rd nerve palsy, likely isolated. Atrial fibrillation anticoagulated on apixaban * See above * Cardiac monitoring * He is rate controlled on carvedilol, resume in the am if blood pressure supports CAD * Hold ASA hold until FridayAugust 05 due to bleeding risk * He normally takes prosugrel, platelet inhibitor, hold until FridayAugust 05 due to bleeding risk Other independent historians: , Valery Discussion of results, plan of care with independent HCP/other: ED provider Reviewed outside records: [facility], ED records, imaging studies VTE Prophylaxis: Wells risk score 1.5 X Bilateral SCDs Patient is admitted to the inpatient service due to the severity of disease, risks of further disease progression and this stay is expected to exceed 2 midnights. FEN: IV fluids: LR at 175 ml/hour, diet: heart healthy, labs: CBC, C/BMP, liver enzymes, Mag, PT/INR Consultants None Social determinants of health: none anticipated Dispo: unknown at this time Code status: Full code as discussed with the patient who identifies Valery, his as his surrogate and POA. [X] I have utilized all available immediate resources to obtain, update, or review of the patient's current medications VTE Deep Vein Thrombosis/Pulmonary Embolism Present on Admission: No MIPS - Admit I confirm the patient?s Advance Care Plan is present, Code status is documented, Surrogate decision maker is in patient?s record: Yes MIPS - DC The patient has current or prior documentation of left ventricular ejection fraction (LVEF) less than 40%, or moderate or severely depressed left ventricular systolic function.: No COVID-19 COVID-19 status: Negative Result date/Date tested (Pos, Neg/Pending): 07/30/22 Scores Wells' Criteria for PE Clinical signs and symptoms of DVT: No PE is #1 Dx or equally likely: No Heart rate > 100: No Immobilization at least 3 days or surg in previous 4 weeks: Yes History of PE or DVT: No Hemoptysis: No Malignancy w/Treatment within 6 months or palliative: No Wells' PE Score total: 1.5
[2022-07-31] MEDS: ACETAMINOPHEN 325 MG TABLET 650 MG PO ×2 (04:12→09:33)
[2022-07-31 05:35] LABS: Add Manual Diff / Slide Review NO; Basophils Absolute Auto 100 /uL (0-100); Basophils Percent Auto 0.5 % (0-2); Eosinophils Absolute Auto 100 /uL (0-450); Eosinophils Percent Auto 0.3 % (2-4); Hematocrit 30.2 % (41-53); Lymphocytes Absolute Auto 3400 /uL (1100-4500); Lymphocytes Percent Auto 18.2 % (25-40); Mean Corpuscular Hemoglobin 33.3 PG (26-34); Mean Corpuscular Volume 100.9 fL (80-100); Monocytes Absolute Auto 2500 /uL (0-900); Monocytes Percent Auto 13.2 % (3-14); Neutrophils Absolute Auto 12600 /uL (1500-7000); Neutrophils Percent Auto 67.8 % (50-75); Platelet Count 173 X10^3/uL (150-400); Red Cell Distribution Width 14.7 % (11.6-14.8); White Blood Cell Count 18.7 X10^3/uL (4.5-11.0)
[2022-07-31 05:40] LABS: Alanine Aminotransferase 35 IU/L (<50); Albumin 3.5 g/dL (3.5-5.0); Albumin Globulin Ratio 1.2 (1.0-2.8); Alkaline Phosphatase 51 U/L (38-126); Aspartate Aminotransferase 27 IU/L (17-59); Bilirubin Total 0.5 mg/dL (0.2-1.3); Blood Urea Nitrogen 62 mg/dL (9-20); Calcium 8.2 mg/dL (8.4-10.2); Carbon Dioxide 19 mmol/L (22-32); Chloride 105 mmol/L (98-107); Estimated Glomerular Filt Rate 35 mL/min (>60); Globulin 2.9 g/dL (1.7-4.1); Glucose 104 mg/dL (80-110); HEMOLYSIS < 15 (0-50); Potassium 4.7 mmol/L (3.4-5.1); Sodium 139 mmol/L (137-145); Total Protein 6.4 g/dL (6.3-8.2)
--- NOTE | 2022-07-31 06:46 | PC.NURSE ---
Jason MCLEAN notified about his AM labs not improving.
[2022-07-31] MEDS: SODIUM CHLORIDE 0.9% 1,000 ML 175 ML IV (07:32)
[2022-07-31] MEDS: SODIUM CHLORIDE 0.9% 1,000 ML 1000 ML IV (07:32)
--- NOTE | 2022-07-31 08:10 | PC.NURSE ---
large purple red hematoma and pain to right shoulder. large bruise/hematoma to lower back. pain to lower back. pt assisted x2 to sit upright at side of bed for meal. pt eating meal independently once upright.
[2022-07-31 08:13] LABS: Creatine Kinase 340 U/L (55-170)
[2022-07-31] MEDS: PIPERACILLIN/TAZO 3.375 GM in SODIUM CHLORIDE 0.9% 100 ML IV (09:33)
[2022-07-31 09:37] LABS: Appearance Urine UA CLEAR; Bilirubin Urine UA NEGATIVE (NEGATIVE); Color Urine UA YELLOW; Glucose Urine UA NEGATIVE (Negative); Ketones Urine UA NEGATIVE (NEGATIVE); Leukocyte Esterase Urine UA NEGATIVE (NEGATIVE); Nitrite Urine UA NEGATIVE (Negative); Occult Blood Urine UA NEGATIVE (Negative); Protein Urine UA NEGATIVE (Negative); Urobilinogen Urine UA 0.2 E.U./dL (0.2)
[2022-07-31 09:42] LABS: Bacteria Urine None Seen; Culture Indicated Urine Cult Not Indicated; RBC Urine None Seen (0-5/HPF); Urine Comments Microscopic Normal; WBC Urine None Seen (0-5/HPF)
--- NOTE | 2022-07-31 10:15 | PC.NURSE ---
0830 called hospitalalist office no answer, [phone] called hospitlalist office no answer, [phone] sent text to hospitalist phone. pt has questions, would like to see hospitalist and have updates regarding tylenol for pain, will he be going home, will he be taking any home meds, we understand eliquis is on hold for now. RN has questions regarding will be needing pt for mobilization training/better strength secondary to injury/pain.
--- NOTE | 2022-07-31 10:23 | PC.NURSE ---
[address] gruber called, will be down to speak with patient when able, he is upstairs in acu/icu rounding currently. Will order medication for pain control, reiveiwed with him how he takes 975 tylenol q8hrs at baseline pain/arthritis.
[2022-07-31] MEDS: HYDROCODONE/ACET 5/325 TABLET 1 TAB PO ×4 (10:41→23:27)
--- NOTE | 2022-07-31 13:43 | PC.NURSE ---
1340 Dr Garcia at bs.
--- NOTE | 2022-07-31 14:31 | PC.NURSE ---
Provider [place] called to report that [facility] reported a positive blood culture. Would like to have re-draw for blood cultures. Order entered and lab informed.
--- NOTE | 2022-07-31 14:54 | P.PN_ITS ---
Subjective Subjective Date Patient Seen: 07/31/22 Interval history: 77 y.o. male with a history of atrial fibrillation anticoagulated on apixaban, NSTEMI, LINDA on nasal CPAP, peripheral neuropathy, wet macular degeneration, kidney stones admitted with weakness and DEMETRICE status post subdural hematoma due to falling down flight of stairs. He also had a right cranial nerve 3 palsy. Patient has increasing serum creatinine in spite of aggressive IV fluids over the past 24 hours. There is persistent unexplained leukocytosis. He has complaints of exacerbation of lower back pain relieved with hydrocodone. He states the right eyelid droop and vision are improving. Exam Vital Signs (past 8 hours): - 07/31/22 06:55 07/31/22 07:00 07/31/22 07:05 Temperature Pulse Rate 78 78 79 Respiratory Rate 22 10 L 14 Blood Pressure Pulse Oximetry 95 93 93 Oxygen Delivery Method 07/31/22 07:10 07/31/22 07:15 07/31/22 07:20 Temperature Pulse Rate 74 75 74 Respiratory Rate 17 16 16 Blood Pressure Pulse Oximetry 91 88 L 88 L Oxygen Delivery Method 07/31/22 07:25 07/31/22 07:30 07/31/22 07:35 Temperature Pulse Rate 74 73 Respiratory Rate 16 16 Blood Pressure 140/83 Pulse Oximetry 90 L 90 L Oxygen Delivery Method CPAP 07/31/22 07:35 07/31/22 07:40 07/31/22 07:45 Temperature Pulse Rate 83 73 84 Respiratory Rate 17 16 17 Blood Pressure Pulse Oximetry 93 92 94 Oxygen Delivery Method CPAP 07/31/22 07:50 07/31/22 08:00 07/31/22 08:00 Temperature Pulse Rate 87 84 Respiratory Rate 20 Blood Pressure 140/73 Pulse Oximetry 93 93 Oxygen Delivery Method CPAP 07/31/22 08:05 07/31/22 08:10 07/31/22 08:15 Temperature 97.8 F Pulse Rate 81 88 88 Respiratory Rate 18 21 24 Blood Pressure Pulse Oximetry 95 93 92 Oxygen Delivery Method Room Air Room Air 07/31/22 08:20 07/31/22 08:25 07/31/22 08:30 Temperature Pulse Rate 82 86 91 H Respiratory Rate 20 24 24 Blood Pressure Pulse Oximetry 94 95 93 Oxygen Delivery Method 07/31/22 08:35 07/31/22 08:40 07/31/22 08:51 Temperature Pulse Rate 90 90 85 Respiratory Rate 24 32 H 23 Blood Pressure Pulse Oximetry 93 95 95 Oxygen Delivery Method 07/31/22 08:55 07/31/22 09:00 07/31/22 09:05 Temperature Pulse Rate 87 84 83 Respiratory Rate 26 H 16 17 Blood Pressure Pulse Oximetry 93 93 93 Oxygen Delivery Method CPAP 07/31/22 09:10 07/31/22 09:15 07/31/22 09:20 Temperature Pulse Rate 82 81 80 Respiratory Rate 17 18 15 Blood Pressure Pulse Oximetry 94 93 Oxygen Delivery Method CPAP CPAP 07/31/22 09:25 07/31/22 09:30 07/31/22 09:35 Temperature Pulse Rate 80 85 84 Respiratory Rate 14 21 17 Blood Pressure Pulse Oximetry 93 95 92 Oxygen Delivery Method CPAP CPAP CPAP 07/31/22 09:40 07/31/22 09:42 07/31/22 09:42 Temperature Pulse Rate 79 78 Respiratory Rate 12 14 Blood Pressure 137/69 Pulse Oximetry 95 94 Oxygen Delivery Method CPAP CPAP 07/31/22 09:45 07/31/22 09:50 07/31/22 09:55 Temperature Pulse Rate 79 76 79 Respiratory Rate 12 15 20 Blood Pressure Pulse Oximetry 92 92 94 Oxygen Delivery Method 07/31/22 10:00 07/31/22 10:05 07/31/22 10:10 Temperature Pulse Rate 77 79 78 Respiratory Rate 15 16 24 Blood Pressure Pulse Oximetry 95 92 92 Oxygen Delivery Method 07/31/22 10:15 07/31/22 10:20 07/31/22 10:25 Temperature Pulse Rate 80 78 74 Respiratory Rate 23 17 15 Blood Pressure Pulse Oximetry 94 93 95 Oxygen Delivery Method 07/31/22 10:30 07/31/22 10:35 07/31/22 10:40 Temperature Pulse Rate 73 75 77 Respiratory Rate 18 15 21 Blood Pressure Pulse Oximetry 95 94 94 Oxygen Delivery Method 07/31/22 10:45 07/31/22 10:50 07/31/22 10:55 Temperature Pulse Rate 74 71 74 Respiratory Rate 12 12 21 Blood Pressure Pulse Oximetry 94 94 94 Oxygen Delivery Method 07/31/22 11:00 07/31/22 11:05 07/31/22 11:10 Temperature Pulse Rate 73 76 75 Respiratory Rate 12 17 14 Blood Pressure Pulse Oximetry 96 94 94 Oxygen Delivery Method 07/31/22 11:15 07/31/22 11:20 02/08/23 11:25 Temperature Pulse Rate 74 72 71 Respiratory Rate 16 10 L 9 L Blood Pressure Pulse Oximetry 94 93 93 Oxygen Delivery Method 07/31/22 11:30 07/31/22 11:35 07/31/22 11:40 Temperature Pulse Rate 73 71 69 Respiratory Rate 21 15 16 Blood Pressure Pulse Oximetry 95 95 96 Oxygen Delivery Method 07/31/22 11:45 07/31/22 11:50 07/31/22 11:55 Temperature Pulse Rate 69 71 69 Respiratory Rate 18 15 14 Blood Pressure Pulse Oximetry 96 96 95 Oxygen Delivery Method 07/31/22 12:00 07/31/22 12:00 07/31/22 12:05 Temperature Pulse Rate 69 68 Respiratory Rate 16 14 Blood Pressure 163/74 H Pulse Oximetry 93 93 Oxygen Delivery Method 07/31/22 12:10 07/31/22 12:15 07/31/22 12:20 Temperature Pulse Rate 68 69 79 Respiratory Rate 14 15 Blood Pressure Pulse Oximetry 95 93 96 Oxygen Delivery Method 07/31/22 12:25 07/31/22 12:30 07/31/22 12:35 Temperature Pulse Rate 69 67 71 Respiratory Rate 14 16 18 Blood Pressure Pulse Oximetry 96 93 95 Oxygen Delivery Method 07/31/22 12:40 07/31/22 12:45 07/31/22 12:50 Temperature Pulse Rate 77 77 76 Respiratory Rate 20 19 19 Blood Pressure Pulse Oximetry 94 94 94 Oxygen Delivery Method 07/31/22 12:55 07/31/22 13:00 07/31/22 13:05 Temperature Pulse Rate 78 74 72 Respiratory Rate 19 19 16 Blood Pressure Pulse Oximetry 92 95 95 Oxygen Delivery Method 07/31/22 13:10 07/31/22 13:15 07/31/22 13:20 Temperature Pulse Rate 73 72 72 Respiratory Rate 17 17 16 Blood Pressure Pulse Oximetry 92 92 96 Oxygen Delivery Method 07/31/22 13:25 07/31/22 13:30 07/31/22 13:35 Temperature Pulse Rate 72 74 74 Respiratory Rate 15 14 14 Blood Pressure Pulse Oximetry 92 94 94 Oxygen Delivery Method 07/31/22 13:40 07/31/22 13:52 07/31/22 13:45 Temperature Pulse Rate 80 78 80 Respiratory Rate 21 18 19 Blood Pressure 154/85 H Pulse Oximetry 97 97 96 Oxygen Delivery Method Room Air 07/31/22 13:50 07/31/22 13:52 07/31/22 13:52 Temperature Pulse Rate 80 78 Respiratory Rate 18 18 Blood Pressure 154/85 H Pulse Oximetry 96 97 Oxygen Delivery Method 07/31/22 13:55 07/31/22 14:00 07/31/22 14:05 Temperature Pulse Rate 82 80 79 Respiratory Rate 17 20 20 Blood Pressure Pulse Oximetry 95 95 96 Oxygen Delivery Method 07/31/22 14:10 07/31/22 14:15 07/31/22 14:20 Temperature Pulse Rate 80 90 82 Respiratory Rate 19 Blood Pressure Pulse Oximetry 97 94 96 Oxygen Delivery Method 07/31/22 14:25 Temperature Pulse Rate 80 Respiratory Rate 18 Blood Pressure Pulse Oximetry 93 Oxygen Delivery Method Oxygen Delivery Method Room Air Oxygen Flow Rate 2 Narrative Exam Narrative: General: Alert and conversant, breathing comfortably HEENT: Moderate right upper lid droop, gaze palsy has largely resolved Lungs: Clear to auscultation Heart: Regular rhythm Abdomen: Soft Extremities: Nonedematous Neuro: Affect normal/calm, not confused, speech fluent, no focal extremity weakness Objective Labs 07/31/22 04:07 07/31/22 04:07 Labs: Laboratory Results - last 24 hr 07/30/22 07/30/22 07/30/22 20:00 20:00 20:20 WBC 19.4 H RBC 3.46 L Hgb 11.5 L Hct 35.0 L MCV 101.0 H MCH 33.2 MCHC 32.9 RDW 14.6 Plt Count 183 Neut % (Auto) 72.0 Lymph % (Auto) 15.0 L [place] % (Auto) 12.5 Eos % (Auto) 0.1 L Baso % (Auto) 0.4 Neut # (Auto) 66623 H Lymph # (Auto) 2900 [place] # (Auto) 2400 H Eos # (Auto) 0 Baso # (Auto) 100 Sodium 143 Potassium 5.0 Chloride 107 Carbon Dioxide 22 BUN 61 H Creatinine 1.89 H Estimated GFR 36 L BUN/Creatinine Ratio 32.3 H Glucose 135 H Calcium 8.4 Magnesium Total Bilirubin AST ALT Alkaline Phosphatase Total Creatine Kinase Total Protein Albumin Globulin Albumin/Globulin Ratio Urine Color Urine Appearance Urine pH Ur Specific [place] Urine Protein Urine Glucose (UA) Urine Ketones Urine Occult Blood Urine Nitrate Urine Bilirubin Ur Bilirubin Confirm Urine Urobilinogen Ur Leukocyte Esterase Urine RBC Urine WBC Ur Squamous Epith Cells Urine Bacteria Ur Culture Indicated? Micro UA Comment Ur Random Sodium 8 L Urine Creatinine 145.7 07/30/22 07/31/22 07/31/22 20:30 04:07 04:07 WBC 18.7 H RBC 3.00 L Hgb 10.0 L Hct 30.2 L MCV 100.9 H MCH 33.3 MCHC 33.0 RDW 14.7 Plt Count 173 Neut % (Auto) 67.8 Lymph % (Auto) 18.2 L [place] % (Auto) 13.2 Eos % (Auto) 0.3 L Baso % (Auto) 0.5 Neut # (Auto) 16321 H Lymph # (Auto) 3400 [place] # (Auto) 2500 H Eos # (Auto) 100 Baso # (Auto) 100 Sodium 139 Potassium 4.7 Chloride 105 Carbon Dioxide 19 L BUN 62 H Creatinine 1.94 H Estimated GFR 35 L BUN/Creatinine Ratio 32.0 H Glucose 104 Calcium 8.2 L Magnesium 2.0 Total Bilirubin 0.5 AST 27 ALT 35 Alkaline Phosphatase 51 Total Creatine Kinase Total Protein 6.4 Albumin 3.5 Globulin 2.9 Albumin/Globulin Ratio 1.2 Urine Color Yellow Urine Appearance Sl cloudy Urine pH 5.0 Ur Specific [place] 1.010 Urine Protein 1+ H Urine Glucose (UA) Negative Urine Ketones Trace H Urine Occult Blood Trace-intact Urine Nitrate Negative Urine Bilirubin 1+ H Ur Bilirubin Confirm Negative Urine Urobilinogen 1.0 Ur Leukocyte Esterase Negative Urine RBC 0-1/hpf Urine WBC 1-5/hpf Ur Squamous Epith Cells 1-5 /hpf Urine Bacteria None seen Ur Culture Indicated? Cult not indicated Micro UA Comment Ur Random Sodium Urine Creatinine 07/31/22 07/31/22 04:07 07:05 WBC RBC Hgb Hct MCV MCH MCHC RDW Plt Count Neut % (Auto) Lymph % (Auto) [place] % (Auto) Eos % (Auto) Baso % (Auto) Neut # (Auto) Lymph # (Auto) [place] # (Auto) Eos # (Auto) Baso # (Auto) Sodium Potassium Chloride Carbon Dioxide BUN Creatinine Estimated GFR BUN/Creatinine Ratio Glucose Calcium Magnesium Total Bilirubin AST ALT Alkaline Phosphatase Total Creatine Kinase 340 H Total Protein Albumin Globulin Albumin/Globulin Ratio Urine Color Yellow Urine Appearance Clear Urine pH 5.0 Ur Specific [place] 1.020 Urine Protein Negative Urine Glucose (UA) Negative Urine Ketones Negative Urine Occult Blood Negative Urine Nitrate Negative Urine Bilirubin Negative Ur Bilirubin Confirm Urine Urobilinogen 0.2 Ur Leukocyte Esterase Negative Urine RBC None seen Urine WBC None seen Ur Squamous Epith Cells Urine Bacteria None seen Ur Culture Indicated? Cult not indicated Micro UA Comment Microscopic normal Ur Random Sodium Urine Creatinine PFSH Medical History Coronary artery disease Hx of non-ST elevation myocardial infarction (NSTEMI) Hyperlipidemia Hypertension Kidney stones Low back pain Shoulder pain Surgical History H/O lithotripsy Hx of appendectomy Hx of cardiac catheterization Family History Mother Renal cancer Father War operations involving destruction of aircraft due to collision with other aircraft, personnel, sequela Social History household members: spouse Smoking Status: Former smoker Assessment & Plan Assessment & Plan narrative: 1. Acute kidney injury, possible ATN, secondary to IV contrast -initial creatinine prior to 1st ER visit was 0.79, subsequently increasing creatinine, not improved after 6+ L IV fluids -on July 30 patient had chest/abdomen/pelvis CT with IV contrast and later a head CT with contrast -likely creatinine will peak and then start to improve in the next few days -patient encouraged to take fluids by mouth, hep-locked IV as appears well- hydrated -hold losartan, HCTZ, allopurinol meds and avoid nephrotoxic agents -monitor daily lytes, creatinine 2. 3rd cranial nerve palsy, right eye, secondary to subdural bleed -improving, continue to monitor 3. Subdural hematoma -has small right subdural and minimal left frontal subarachnoid bleed, evaluated at [facility] and discharged same day -stable on CT -hold blood thinners until FridayAugust 05 4. Weakness, left 7th rib fracture uncomplicated, secondary to trauma -PT consult requested -use acetaminophen and hydrocodone as needed 5. Paroxysmal atrial fibrillation -resumed carvedilol 12.5 mg b.i.d. -hold apixaban until FridayAugust 05 6. Hypertension -maintain on amlodipine and carvedilol, hold other meds 7. Leukocytosis, acute -there is no sign of respiratory, urinary or other infection -this is likely stress related or possibly from steroid intra-articular injection he got in his shoulder on same day before he fell and brought to ED -stopped Zosyn 07/31 -trend WBC 8. LINDA -continue own nasal CPAP during sleep DVT prophylaxis: SCDs Time Spent With Patient Critical Care time: I spent a total of [] minutes of critical care time on this patient's care today; this time is exclusive of procedural time.
--- NOTE | 2022-07-31 15:26 | PC.NURSE ---
rn night here blood cx x2
--- NOTE | 2022-07-31 17:44 | PT-IP ANOTE ---
Pt not seen for PT eval today and will check pt tomorrow depending on triage level.
[2022-07-31] MEDS: carvediloL 12.5 MG TABLET PO (20:45)
[2022-07-31] MEDS: SENNOSIDES 8.6 MG TABLET PO (20:45)
[2022-07-31] MEDS: SODIUM CHLORIDE 0.9% FLUSH 10 ML IV (20:45)
--- NOTE | 2022-07-31 22:15 | PC.NURSE ---
Addendum entered by Alvina Massey R.N. 08/01/22 05:02: Patient's call light on and found patient naked and attempting to sit up on edge of bed. Assisted to sitting position with 2 assists. When attempting to lie back down used gait belt, walker and 2 assists but patient unable to get to standing position due to weakness. Mechanical lift utilized with 3 person assist to get him back into bed in lying position. States pain is now 6/10 so medicated with Vicodin. Bedding found to have blood on pad under lower back; no open areas noted. Ice applied to swollen/bruised right shoulder. Addendum entered by Alvina Massey R.N. 08/01/22 01:47: Patient very uncomfortable. Attempted to reposition multiple times but still having difficulty. States pain is back up to 5/10 but had Vicodin at 2327 so unable to give again. Paul MCLAEN, informed and order received for Ativan. When RN went to administer Ativan patient was partially sitting at edge of bed. Assisted to sit on edge of bed and patient able to scoot himself up to head of bed and then assisted back into bed and position onto right side with pillow behind back and then bed tilted to left to relieve pressure from right shoulder. Original Note: Patient is alert and oriented. Breath sounds CTA with RA sat of 95%. Is on continuous oximetry and intermittently will briefly drop into upper 80's but quickly rebounds; denies SOB. Uses CPAP for sleep. HRR. Denies nausea. BT present and abdomen is soft; passing flatus. Voiding per urinal and denies dysuria. Is able to move self in bed. Gait not yet assessed but patient reports he uses 1-2 canes at home with ambulation. Extensive bruising on trunk both anterior and posterior as well as right arm and shoulder. Heels are reddened. Bilateral calf SCD's applied. Medicated earlier with Vicodin for 5/10 generalized pain. Ice packs provided for additional comfort to neck and left ribs. Fall risk score is high and bed alarm is activated. at bedside.
[2022-08-01] MEDS: LORazepam 0.5 MG TABLET PO (01:29)
[2022-08-01 02:44] VITALS: BP 129/71; PULSE 82; RESP 16; TEMP 36.9; O2SAT 92
[2022-08-01] MEDS: HYDROCODONE/ACET 5/325 TABLET 1 TAB PO ×5 (04:49→23:59)
[2022-08-01 06:56] LABS: Add Manual Diff / Slide Review NO; Basophils Absolute Auto 100 /uL (0-100); Basophils Percent Auto 0.6 % (0-2); Eosinophils Absolute Auto 200 /uL (0-450); Eosinophils Percent Auto 1.1 % (2-4); Hemoglobin 8.3 g/dL (13.5-17.5); Lymphocytes Absolute Auto 2700 /uL (1100-4500); Lymphocytes Percent Auto 18.8 % (25-40); Mean Corpuscular Hemoglobin 33.2 PG (26-34); Mean Corpuscular Volume 100.5 fL (80-100); Monocytes Absolute Auto 2000 /uL (0-900); Monocytes Percent Auto 13.8 % (3-14); Neutrophils Absolute Auto 9400 /uL (1500-7000); Neutrophils Percent Auto 65.7 % (50-75); Platelet Count 146 X10^3/uL (150-400); Red Blood Cell Count 2.48 X10^6/uL (4.5-5.9); Red Cell Distribution Width 14.4 % (11.6-14.8); White Blood Cell Count 14.4 X10^3/uL (4.5-11.0)
[2022-08-01 07:08] LABS: Alanine Aminotransferase 36 IU/L (<50); Albumin 3.4 g/dL (3.5-5.0); Albumin Globulin Ratio 1.1 (1.0-2.8); Alkaline Phosphatase 51 U/L (38-126); Aspartate Aminotransferase 27 IU/L (17-59); BUN Creatinine Ratio 45.8 (6-22); Bilirubin Total 0.7 mg/dL (0.2-1.3); Blood Urea Nitrogen 44 mg/dL (9-20); Carbon Dioxide 21 mmol/L (22-32); Chloride 108 mmol/L (98-107); Estimated Glomerular Filt Rate > 60 mL/min (>60); Glucose 108 mg/dL (80-110); HEMOLYSIS < 15 (0-50); Potassium 4.3 mmol/L (3.4-5.1); Sodium 140 mmol/L (137-145); Total Protein 6.4 g/dL (6.3-8.2)
[2022-08-01 08:36] VITALS: BP 125/72; PULSE 85; RESP 20; TEMP 36.8; O2SAT 92
[2022-08-01 08:53] VITALS: BP 125/72; PULSE 85
[2022-08-01] MEDS: DOCUSATE 100 MG CAPSULE 200 MG PO (08:53)
[2022-08-01] MEDS: carvediloL 12.5 MG TABLET PO ×2 (08:53→21:15)
[2022-08-01] MEDS: LIDOCAINE PATCH 1 EACH ADH..PATCH TOP (08:53)
[2022-08-01] MEDS: SODIUM CHLORIDE 0.9% FLUSH 10 ML IV ×2 (09:42→21:16)
--- NOTE | 2022-08-01 10:50 | PT.IIE ---
Current Diagnoses Traumatic subdural hemorrhage with loss of consciousness status unknown, initial encounter (07/31/22) Surgical History (Last Reviewed 07/31/22 @ 01:35 by VINAY Land) H/O lithotripsy Hx of appendectomy Hx of cardiac catheterization Medical History (Last Reviewed 07/31/22 @ 01:35 by VINAY Land) Coronary artery disease Hx of non-ST elevation myocardial infarction (NSTEMI) Hyperlipidemia Hypertension Kidney stones Low back pain Shoulder pain Physical Therapy Inpatient Evaluation/Re-Eval M1 PT/OT-IP Prior Functional Status Start: 08/01/22 15:11 Freq: NEEDED Status: Active Protocol: Document 08/01/22 10:50 AB (Rec: 08/01/22 15:27 AB [email or web address]) Medical Review Prior Functional Status Medical History Reviewed Yes Communication able to make needs known Mobility and Gait pt stated that he is independent with all mobilities and ambulation using a hurrycane most of the time but also able to ambulate without AD Social History Household Members spouse Living Arrangements House Number of Floors (Floors) Two Floors Number of Stairs To Enter/Railing? 2 steps to enter without rails 14 steps R rail to get to the bedroom level: pt stated that he can stay on the first level of the house Home Environment High Toilet,Walk in Shower Home Equipment Hand Held Shower,Lift Recliner ,Grab Bars In Shower Additional Social History Comment pt has a R side bed cane M2 PT-IP Current Condition Start: 08/01/22 15:11 Freq: NEEDED Status: Active Protocol: Document 08/01/22 10:50 AB (Rec: 08/01/22 15:27 AB [email or web address]) Physical Therapy Current Condition Current Condition Evaluation Date 08/01/22 Treatment Diagnosis s/p fall; subdural hematoma; difficulty in walking Onset Date 07/31/22 M3 PT-IP Subjective Start: 08/01/22 15:11 Freq: NEEDED Status: Active Protocol: Document 08/01/22 10:50 AB (Rec: 08/01/22 15:27 AB [email or web address]) Subjective Physical Therapy Visit Type Type Initial Evaluation Visit Start Time 10:50 Visit Stop Time 11:40 Total Visit Minutes 50 Number of PENSION CONSULTANT Visits 0 Physical Therapy Visit Comments Patient Comments agreeable to do PT Therapy Pain Assessment Pain When Pain Assessed At Rest Pain Present Pain Present Pain Reported Location Lower Back Intensity 5 Scale Used Numeric (0 - 10) Pain Management Techniques Distraction,Modification of Treatment,Re-positioning, Timing of Activity with Medications M4 PT-IP Mobility and Gait Start: 08/01/22 15:11 Freq: NEEDED Status: Active Protocol: Document 08/01/22 10:50 AB (Rec: 08/01/22 15:27 AB [id number]) PT-Bed Mobility Assessment Supine to Sit Supine to Sit Minimal Assistance,1 Person Assistance,Head of Bed Elevated,Bedrails Sit to Supine Sit to Supine Minimal Assistance,Bedrails PT-Transfer Assessment Sit to and From Stand Sit to and from Stand Minimal Assistance,1 Person Assistance,Use of Upper Extremities Equipment Transfer Assistive Device Front Wheeled Walker Comments Mobility Comments pt in bed and spouse in room. pt stated that he fell a flight of steps and have rib fracture. (+) hematoma/ bruises on trunk. pt also has R eye issue and unable to open affecting pt's vision. pt stated that he went here at [facility] after the fall but he was flown to [facility] but was sent back home after a few hours. stated that he was not able to get out of the car and came back here in the hospital. pt completed supine to sit min A and cues. pt uses a bed cane at home. pt used side of FWW with PT stabilizing to simulate bed cane at home. pt able to sit on EOB SBA. pt stated that he has not been able to stand from a low surface for years and has a high chair at home. completed sit to stand from elevated bed min A and ambulated in room ~ 20 ft min to mod A and cues using FWW. pt requested to go back to bed. completed sit to supine min A. positioned pt in bed. call light and table placed within reach. spouse stated that she will borrow a FWW from the [employer]. Gait Assessment Gait Gait Assistance Required: Minimum Assistance,Moderate Assistance Distance (Feet) 20 Able to Maintain Weight Bearing Status Yes During Gait Assistive Devices Assistive Device Gait Belt,Front Wheeled Walker Orthotic/Prosthetic Devices or Brace: No Gait Deviations General Gait Pattern Decreased Stride Length, Decreased Feet Clearance Factors Limiting Gait Function Factors Limiting Gait Function Decreased Activity Tolerance, Decreased Strength,Limited Range of Motion,Pain,Poor Balance,Poor Safety Awareness PT-Balance Assessment Sitting Balance and Reactions Static Sitting Balance Ability Good Dynamic Sitting Balance Ability Fair Standing Balance and Reactions Static Standing Balance Ability Fair Dynamic Standing Balance Ability Poor Device Used FWW M5 PT-IP Objective Assessments Start: 08/01/22 15:11 Freq: NEEDED Status: Active Protocol: Document 08/01/22 10:50 AB (Rec: 08/01/22 15:27 AB [id number]) Orientation Orientation/Cognition Level of Alertness Alert Orientation Name,Situation Safety Awareness Decreased Safety Awareness Strength Lower Extremity Strength Hip 4-/5 Knee 4-/5 Muscle Tone Muscle Tone WNL Yes M6 PT-IP Treatment Start: 08/01/22 15:11 Freq: NEEDED Status: Active Protocol: Document 08/01/22 10:50 AB (Rec: 08/01/22 15:27 AB [id number]) Physical Therapy Treatment Education Education Provided Safety M7 PT-IP Assessment and Plan Start: 08/01/22 15:11 Freq: NEEDED Status: Active Protocol: Document 08/01/22 10:50 AB (Rec: 08/01/22 15:27 AB [email or web address]) PT Summary Assessment and Plan Potential Rehabilitation Potential Fair Status of Condition at Evaluation Evolving Summary Impairments Pain,ROM,Strength,Balance, Coordination,Sensation,Tone, Cognition,Bed Mobility, Transfers,Gait,Activity Tolerance Assessment Summary pt requiring min to mod A with mobility using FWW but unable to tolerate much activity with c/o pain and fatigue. pt 's spouse will be able to assist pt at home and caregiver training will be conducted when appropriate. pt also has to complete stair climbing prior to d/c. will continue to assess. Goals Bed Mobility Goal Standby Assistance Transfer Goal Standby Assistance,Front Wheeled Walker Gait Goal Standby Assistance,Front Wheel Walker Gait Distance 100 Other Goals up/down 2 steps using hurrycane CGA Days to Meet Goals 10 Frequency of Treatment Frequency Of Treatment Once a Day Treatment Plan Physical Therapy Treatment Plan Bed Mobility Training,Transfer Training,Gait Training, Therapeutic Exercise,Balance Retraining,Discharge Planning, Hot or Cold Pack,Neuromuscular Re-ed,Coordination Retraining ,Manual Therapy Precautions Other Precautions falls Recommendations To Nursing Amount of Assist Needed 1 Person Assist Discharge Recommendations PT Discharge Recommendations Home with 13/01 Assist Available,Home Health,SNF Rehab,Home vs SNF Equipment Needed for Home Before FWW Discharge Transportation Needs at Discharge Private Vehicle,Wheelchair/ Cabulance
[2022-08-01 12:00] VITALS: BP 145/79; PULSE 78; RESP 17; TEMP 37.1; O2SAT 93
[2022-08-01 12:38] LABS: Enterococcus species Not Detected (Not Detect)
[2022-08-01 12:39] LABS: Acinetobacter baumannii Not Detected (Not Detect); Candida albicans Not Detected (Not Detect); Candida glabrata Not Detected (Not Detect); Candida krusei Not Detected (Not Detect); Candida parapsilosis Not Detected (Not Detect); Candida tropicalis Not Detected (Not Detect); E. coli Not Detected (Not Detect); Enterobacter cloacae complex Not Detected (Not Detect); Enterobacteriaceae species Not Detected (Not Detect); Haemophilus influenzae Not Detected (Not Detect); Listeria monocytogenes Not Detected (Not Detect); Methicillin-resistant gene Not Detected (Not Detect); Neisseria meningitidis Not Detected (Not Detect); Proteus species Not Detected (Not Detect); Pseudomonas aeruginosa Not Detected (Not Detect); Serratia marcescens Not Detected (Not Detect); Staphylococcus species Detected (Not Detect); Streptococcus agalactiae (Gr B Not Detected (Not Detect); Streptococcus pneumonia Not Detected (Not Detect); Streptococcus pyogenes (Gr A) Not Detected (Not Detect); Streptococcus species Not Detected (Not Detect)
--- NOTE | 2022-08-01 13:18 | PM.PN.1 ---
Subjective Subjective Date Patient Seen: 08/01/22 Interval history: 77 y.o. male with a history of atrial fibrillation anticoagulated on apixaban, NSTEMI, LINDA on nasal CPAP, peripheral neuropathy, wet macular degeneration, kidney stones admitted with weakness and DEMETRICE status post subdural hematoma due to falling down flight of stairs.? He also had a right cranial nerve 3 palsy. Patient feels weak and concerned about falling again. States his vision is improving. His renal failure has resolved which was likely due to contrast nephropathy. WBC improving as well likely due to intra-articular steroid injection. Exam Vital Signs (past 8 hours): - 08/01/22 08:36 08/01/22 08:53 08/01/22 12:00 Temperature 98.3 F 98.7 F Pulse Rate 85 85 78 Respiratory Rate 20 17 Blood Pressure 125/72 125/72 145/79 H Pulse Oximetry 92 93 Oxygen Flow Rate 0 0 Oxygen Delivery Method Room Air,CPAP Oxygen Flow Rate 0 Narrative Exam Narrative: General:? Alert and conversant, breathing comfortably HEENT:? Persistent right upper lid droop, pupils equal and reactive, no gaze deviation Lungs:? Clear to auscultation Heart:? Regular rhythm Abdomen: Soft Extremities:? Nonedematous Neuro:? Affect normal/calm, not confused, speech fluent, no focal extremity weakness Skin: Marked ecchymoses over right shoulder/arm and across lower back Objective Labs 08/01/22 05:06 08/01/22 05:06 Labs: Laboratory Results - last 24 hr 07/31/22 08/01/22 08/01/22 15:22 05:06 05:06 WBC 14.4 H RBC 2.48 L Hgb 8.3 L Hct 25.0 L MCV 100.5 H MCH 33.2 MCHC 33.0 RDW 14.4 Plt Count 146 L Neut % (Auto) 65.7 Lymph % (Auto) 18.8 L [place] % (Auto) 13.8 Eos % (Auto) 1.1 L Baso % (Auto) 0.6 Neut # (Auto) 9400 H Lymph # (Auto) 2700 [place] # (Auto) 2000 H Eos # (Auto) 200 Baso # (Auto) 100 Sodium 140 Potassium 4.3 Chloride 108 H Carbon Dioxide 21 L BUN 44 H Creatinine 0.96 Estimated GFR > 60 BUN/Creatinine Ratio 45.8 H Glucose 108 Calcium 8.0 L Total Bilirubin 0.7 AST 27 ALT 36 Alkaline Phosphatase 51 Total Protein 6.4 Albumin 3.4 L Globulin 3.0 Albumin/Globulin Ratio 1.1 A. baumannii (PCR) Not detected Mary albicans (PCR) Not detected C. glabrata (PCR) Not detected C. krusei (PCR) Not detected C. parapsilosis (PCR) Not detected C. tropicalis (PCR) Not detected Enterobacteriac sp PCR Not detected E. cloacae complex PCR Not detected Enterococcus sp PCR Not detected E. coli (PCR) Not detected H. influenzae (PCR) Not detected Klebsiella oxytoca PCR Not detected Klebsiella pneumoniae Not detected List. monocytogenes PCR Not detected N. meningitidis (PCR) Not detected Proteus species (PCR) Not detected Serratia marcescens PCR Not detected Staphylococcus sp PCR Detected H Staph aureus (PCR) Not detected mecA-Methicil Res Gene Not detected Streptococcus sp PCR Not detected Group A Strep (PCR) Not detected Strep agalactiae (PCR) Not detected Strep pneumoniae (PCR) Not detected P. aeruginosa (PCR) Not detected Christie/B-Vanco Res Genes TNP KPC-Carbap Res Gene PCR TNP PFSH Medical History Coronary artery disease Hx of non-ST elevation myocardial infarction (NSTEMI) Hyperlipidemia Hypertension Kidney stones Low back pain Shoulder pain Surgical History H/O lithotripsy Hx of appendectomy Hx of cardiac catheterization Family History Mother Renal cancer Father War operations involving destruction of aircraft due to collision with other aircraft, personnel, sequela Social History household members: spouse Smoking Status: Former smoker Assessment & Plan Assessment & Plan narrative: 1. Acute kidney injury, secondary to IV contrast, resolved -initial creatinine prior to 1st ER visit was 0.79, subsequently increasing creatinine, not improved after 6+ L IV fluids, however GFR back to normal on 08/01 -on July 30 patient had chest/abdomen/pelvis CT with IV contrast and later same day head/neck CTA -patient encouraged to take fluids by mouth, hep-locked IV as appears well-hydrated -continue hold losartan, HCTZ, allopurinol meds and avoid nephrotoxic agents -monitor daily lytes, creatinine 2. 3rd cranial nerve palsy, right eye, secondary to subdural bleed -stable upper lid droop, continue to monitor 3. Subdural hematoma -has small right subdural and minimal left frontal subarachnoid bleed, evaluated at [facility] and discharged same day -stable on CT -hold blood thinners until FridayAugust 05 4. Weakness, left 7th rib fracture uncomplicated, secondary to trauma -PT consult requested -use acetaminophen and hydrocodone as needed 5. Paroxysmal atrial fibrillation, history of CAD -resumed carvedilol 12.5 mg b.i.d. -hold apixaban and ASA until FridayAugust 05 6.? Hypertension -maintain on amlodipine and carvedilol, hold other meds 7.? Leukocytosis, acute, secondary to intra-articular steroid injection -there is no sign of respiratory, urinary or other infection -this is likely from steroid intra-articular injection he got in his shoulder on same day before he fell and brought to ED -stopped Zosyn 07/31 -trend WBC 8.? LINDA -continue own nasal CPAP during sleep 9. Weakness and mobility issues secondary to neuropathy -PT/OT consult 10. Acute anemia -secondary to extensive bruising, Demetrice and hydration DVT prophylaxis: SCDs Time Spent With Patient Critical Care time: I spent a total of [] minutes of critical care time on this patient's care today; this time is exclusive of procedural time.
[2022-08-01] MEDS: ACETAMINOPHEN 325 MG TABLET 650 MG PO (13:55)
[2022-08-01] MEDS: HYDROCODONE/ACET 5/325 TABLET 2 TAB PO (15:34)
[2022-08-01 21:05] VITALS: BP 151/74; PULSE 82; RESP 18; TEMP 37.5; O2SAT 95
[2022-08-01 21:15] VITALS: BP 151/74; PULSE 82
[2022-08-01] MEDS: SENNOSIDES 8.6 MG TABLET PO (21:16)
[2022-08-01] MEDS: MELATONIN 3 MG TABLET 6 MG PO (21:16)
--- NOTE | 2022-08-02 04:08 | PC.NURSE ---
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 Provider Paul informed of Pt request and agreed. Labs and vitals will be held until 0700.
[2022-08-02 04:30] VITALS: BP 140/74; PULSE 71; RESP 18; TEMP 37.1; O2SAT 95
[2022-08-02] MEDS: HYDROCODONE/ACET 5/325 TABLET 2 TAB PO ×4 (04:33→22:02)
[2022-08-02 07:21] LABS: Add Manual Diff / Slide Review NO; Basophils Absolute Auto 100 /uL (0-100); Basophils Percent Auto 0.8 % (0-2); Eosinophils Absolute Auto 300 /uL (0-450); Eosinophils Percent Auto 2.7 % (2-4); Hematocrit 22.8 % (41-53); Hemoglobin 7.6 g/dL (13.5-17.5); Lymphocytes Absolute Auto 2400 /uL (1100-4500); Lymphocytes Percent Auto 22.8 % (25-40); Mean Corpuscular HGB Conc 33.4 % (30-36); Mean Corpuscular Hemoglobin 33.8 PG (26-34); Mean Corpuscular Volume 101.2 fL (80-100); Monocytes Absolute Auto 1300 /uL (0-900); Monocytes Percent Auto 12.1 % (3-14); Neutrophils Absolute Auto 6500 /uL (1500-7000); Neutrophils Percent Auto 61.6 % (50-75); Platelet Count 137 X10^3/uL (150-400); Red Blood Cell Count 2.25 X10^6/uL (4.5-5.9); Red Cell Distribution Width 14.2 % (11.6-14.8); White Blood Cell Count 10.5 X10^3/uL (4.5-11.0)
[2022-08-02 07:33] LABS: Alanine Aminotransferase 35 IU/L (<50); Albumin 3.2 g/dL (3.5-5.0); Alkaline Phosphatase 48 U/L (38-126); Aspartate Aminotransferase 27 IU/L (17-59); BUN Creatinine Ratio 44.6 (6-22); Bilirubin Total 0.8 mg/dL (0.2-1.3); Blood Urea Nitrogen 33 mg/dL (9-20); Calcium 8.1 mg/dL (8.4-10.2); Carbon Dioxide 24 mmol/L (22-32); Chloride 108 mmol/L (98-107); Estimated Glomerular Filt Rate > 60 mL/min (>60); Globulin 3.1 g/dL (1.7-4.1); Glucose 118 mg/dL (80-110); HEMOLYSIS < 15 (0-50); Potassium 4.5 mmol/L (3.4-5.1); Sodium 141 mmol/L (137-145); Total Protein 6.3 g/dL (6.3-8.2)
[2022-08-02 08:54] VITALS: BP 134/78; PULSE 69
[2022-08-02] MEDS: carvediloL 12.5 MG TABLET PO ×2 (08:54→22:03)
[2022-08-02] MEDS: DOCUSATE 100 MG CAPSULE 200 MG PO (08:55)
[2022-08-02] MEDS: LIDOCAINE PATCH 1 EACH ADH..PATCH TOP (08:56)
[2022-08-02 09:00] VITALS: BP 134/75; PULSE 67; RESP 17; TEMP 36.7; O2SAT 95
[2022-08-02] MEDS: DICLOFENAC 1% GEL 100 GM 1 APPLIC TOP ×3 (09:01→17:02)
[2022-08-02] MEDS: SODIUM CHLORIDE 0.9% FLUSH 10 ML IV ×2 (09:01→23:00)
--- NOTE | 2022-08-02 14:40 | P.PN_ITS ---
Subjective Subjective Date Patient Seen: 08/02/22 Interval history: 77 y.o. male with a history of atrial fibrillation anticoagulated on apixaban, NSTEMI, LINDA on nasal CPAP, peripheral neuropathy, wet macular degeneration, kidney stones admitted with weakness and DEMETRICE status post subdural hematoma due to falling down flight of stairs.? He also had a right cranial nerve 3 palsy. Patient feels weak and concerned about falling again. States his vision is improving though slowly. His renal failure has resolved which was likely due to contrast nephropathy, but anemia is continuing to worsen today, most likely hematoma from extensive bruising. He has no hematemsis, melena, or hematochezia. Has not had a bowel movement in a couple of days. Blood cultures repeated today, given possible contaminant from 07/31. Though will start ceftriaxone today given positive in both cultures as well as reported call from [facility] as blood cultures positive there. Exam Vital Signs (past 8 hours): - 08/02/22 08:54 08/02/22 09:00 Temperature 98.1 F Pulse Rate 69 67 Respiratory Rate 17 Blood Pressure 134/78 134/75 Pulse Oximetry 95 Oxygen Flow Rate 3 Oxygen Delivery Method Room Air Oxygen Flow Rate 3 Narrative Exam Narrative: General:? Alert and conversant, breathing comfortably HEENT:? Persistent right upper lid droop, pupils equal and reactive, no gaze deviation Lungs:? Clear to auscultation Heart:? Regular rhythm Abdomen: Soft Extremities:? Nonedematous Neuro:? Affect normal/calm, not confused, speech fluent, no focal extremity weakness Skin: Marked ecchymoses over right shoulder/arm and across lower back Objective Labs 08/02/22 07:00 08/02/22 07:00 Labs: Laboratory Results - last 24 hr 08/02/22 08/02/22 07:00 07:00 WBC 10.5 RBC 2.25 L Hgb 7.6 L Hct 22.8 L MCV 101.2 H MCH 33.8 MCHC 33.4 RDW 14.2 Plt Count 137 L Neut % (Auto) 61.6 Lymph % (Auto) 22.8 L [place] % (Auto) 12.1 Eos % (Auto) 2.7 Baso % (Auto) 0.8 Neut # (Auto) 6500 Lymph # (Auto) 2400 [place] # (Auto) 1300 H Eos # (Auto) 300 Baso # (Auto) 100 Sodium 141 Potassium 4.5 Chloride 108 H Carbon Dioxide 24 BUN 33 H Creatinine 0.74 Estimated GFR > 60 BUN/Creatinine Ratio 44.6 H Glucose 118 H Calcium 8.1 L Total Bilirubin 0.8 AST 27 ALT 35 Alkaline Phosphatase 48 Total Protein 6.3 Albumin 3.2 L Globulin 3.1 Albumin/Globulin Ratio 1.0 PFSH Medical History Coronary artery disease Hx of non-ST elevation myocardial infarction (NSTEMI) Hyperlipidemia Hypertension Kidney stones Low back pain Shoulder pain Surgical History H/O lithotripsy Hx of appendectomy Hx of cardiac catheterization Family History Mother Renal cancer Father War operations involving destruction of aircraft due to collision with other aircraft, personnel, sequela Social History household members: spouse Smoking Status: Former smoker Assessment & Plan Assessment & Plan narrative: 1. Acute kidney injury, secondary to IV contrast, resolved -initial creatinine prior to 1st ER visit was 0.79, subsequently increasing creatinine, not improved after 6+ L IV fluids, however GFR back to normal on 08/01, improved further today. -on July 30 patient had chest/abdomen/pelvis CT with IV contrast and later same day head/neck CTA -patient encouraged to take fluids by mouth, hep-locked IV as appears well- hydrated -continue hold losartan, HCTZ, allopurinol meds and avoid nephrotoxic agents, can resume tomorrow if cr. stable, will continue to watch today given anemia. -monitor daily lytes, creatinine 2. 3rd cranial nerve palsy, right eye, secondary to subdural bleed -stable upper lid droop, continue to monitor 3. Subdural hematoma -has small right subdural and minimal left frontal subarachnoid bleed, evaluated at [facility] and discharged same day -stable on CT -hold blood thinners until FridayAugust 05 4. Weakness, left 7th rib fracture uncomplicated, secondary to trauma -PT consult requested -use acetaminophen and hydrocodone as needed 5. Paroxysmal atrial fibrillation, history of CAD -resumed carvedilol 12.5 mg b.i.d. -hold apixaban and ASA until FridayAugust 05 6.? Hypertension -maintain on amlodipine and carvedilol, hold other meds 7.? Leukocytosis, acute, secondary to intra-articular steroid injection -there is no sign of respiratory, urinary or other infection -this is likely from steroid intra-articular injection he got in his shoulder on same day before he fell and brought to ED -stopped Zosyn 07/31 -trend WBC 8.? LINDA -continue own nasal CPAP during sleep 9. Weakness and mobility issues secondary to neuropathy -PT/OT consult 10. Acute anemia secondary to acute blood loss -secondary to extensive bruising in his back along with IV fluids - transfusion for Hg <7. h/h daily, Hg to 7.6 today. 11. Possible staph bacteremia - blood cultures both positive from 07/31, possible contaminant. Not ill appearing currently. Also of note from [facility] he had positive staph blood cultures per records (not finalized). - repeat blood cultures ordered today. - start ceftriaxone as both cultures from 07/31 were positive. - no current fever and leukocytosis improved. DVT prophylaxis: SCDs Dispo: possible discharge home with home health vs rehab, pending stability of anemia and possible patient's [facility] records were personally reviewed, along with extensive documentation here. Additional Historians include patient's spouse at bedside. COVID-19 COVID-19 status: Negative Time Spent With Patient Critical Care time: I spent a total of [] minutes of critical care time on this patient's care today; this time is exclusive of procedural time. Quality MIPS - Admit I confirm the patient?s Advance Care Plan is present, Code status is documented, Surrogate decision maker is in patient?s record [If Yes, STOP here]: Yes
[2022-08-02] MEDS: cefTRIAXone 2,000 MG in SODIUM CHLORIDE 0.9% 100 ML 200 MG IV (16:30)
[2022-08-02 17:00] VITALS: BP 142/74; PULSE 70; RESP 17; TEMP 36.8; O2SAT 96
--- NOTE | 2022-08-02 17:38 | PT.IPTN ---
Current Diagnoses Traumatic subdural hemorrhage with loss of consciousness status unknown, initial encounter (07/31/22) Physical Therapy Treatment Note M2 PT-IP Current Condition Start: 08/01/22 15:11 Freq: NEEDED Status: Active Protocol: Document 08/01/22 10:50 AB (Rec: 08/01/22 15:27 AB [email or web address]) Physical Therapy Current Condition Current Condition Evaluation Date 08/01/22 Treatment Diagnosis s/p fall; subdural hematoma; difficulty in walking Onset Date 07/31/22 M3 PT-IP Subjective Start: 08/01/22 15:11 Freq: NEEDED Status: Active Protocol: Document 08/02/22 17:21 LJ (Rec: 08/02/22 17:38 LJ [id number]) Subjective Physical Therapy Visit Type Type Treatment Note Visit Start Time 15:42 Visit Stop Time 16:05 Total Visit Minutes 23 Number of WHARF TENDER Visits 1 Physical Therapy Visit Comments Patient Comments agreeable to do PT Therapy Pain Assessment Pain When Pain Assessed At Rest Pain Present Pain Present Pain Reported Location Lower Back Intensity 3 Scale Used Numeric (0 - 10) Pain Management Techniques Distraction,Modification of Treatment,Re-positioning, Timing of Activity with Medications M4 PT-IP Mobility and Gait Start: 08/01/22 15:11 Freq: NEEDED Status: Active Protocol: Document 08/02/22 17:21 LJ (Rec: 08/02/22 17:38 LJ [id number]) PT-Bed Mobility Assessment Sit to Supine Sit to Supine Maximum Assistance,1 Person Assistance,Head of Bed Elevated,Bedrails Scooting Scooting Up and Down in Bed Minimal Assistance PT-Transfer Assessment Comments Mobility Comments Pt sitting on side of bed with nsg assessing skin integrity of back. Pt instructed to sit with upright posture. Completed knee extension and ankle pumps. Pt stated his LLE feels like it went to sleep and he is afraid of falling if he attempts to stand. FWW placed in front of pt and pt instructed to push from bed and loft buttocks to put weight into his LEs. Pt completed this 6x but unable to come to complete standing. Requested to lay down in bed due to fatigue. MaxA with lifting LEs onto bed as pt lowered trunk onto elevated bed. Bed lowered then ModA to position hips and chest in middle of bed. Pt able to complete 4x bridge to scoot to head of bed. HOB elevated and pt made comfortable and given all needs within reach. Gait Assessment Comments Gait Comments unable to come to standing position M5 PT-IP Objective Assessments Start: 08/01/22 15:11 Freq: NEEDED Status: Active Protocol: Document 08/01/22 10:50 AB (Rec: 08/01/22 15:27 AB [email or web address]) Orientation Orientation/Cognition Level of Alertness Alert Orientation Name,Situation Safety Awareness Decreased Safety Awareness Strength Lower Extremity Strength Hip 4-/5 Knee 4-/5 Muscle Tone Muscle Tone WNL Yes M6 PT-IP Treatment Start: 08/01/22 15:11 Freq: NEEDED Status: Active Protocol: Document 08/02/22 17:21 LJ (Rec: 08/02/22 17:38 LJ [id number]) Physical Therapy Treatment Exercises Exercises Ankle Pumps,Quad Sets Education Education Provided Safety M7 PT-IP Assessment and Plan Start: 08/01/22 15:11 Freq: NEEDED Status: Active Protocol: Document 08/02/22 17:21 LJ (Rec: 08/02/22 17:38 LJ [id number]) PT Summary Assessment and Plan Potential Rehabilitation Potential Fair Status of Condition at Evaluation Evolving Summary Impairments Pain,ROM,Strength,Balance, Coordination,Sensation,Tone, Cognition,Bed Mobility, Transfers,Gait,Activity Tolerance Assessment Summary Pt requiring greater level of assist and unable to come to complete standing. At this point, pt will need SNF to iimprove strength, mobility, and gait ability prior to returning home. Goals Bed Mobility Goal Standby Assistance Transfer Goal Standby Assistance,Front Wheeled Walker Gait Goal Standby Assistance,Front Wheel Walker Gait Distance 100 Other Goals up/down 2 steps using hurrycane CGA Days to Meet Goals 10 Frequency of Treatment Frequency Of Treatment Once a Day Treatment Plan Physical Therapy Treatment Plan Bed Mobility Training,Transfer Training,Gait Training, Therapeutic Exercise,Balance Retraining,Discharge Planning, Hot or Cold Pack,Neuromuscular Re-ed,Coordination Retraining ,Manual Therapy Precautions Other Precautions falls Recommendations To Nursing Amount of Assist Needed 1 Person Assist Discharge Recommendations PT Discharge Recommendations Home with 13/01 Assist Available,Home Health,SNF Rehab,Home vs SNF Equipment Needed for Home Before FWW Discharge Transportation Needs at Discharge Private Vehicle,Wheelchair/ Cabulance
--- NOTE | 2022-08-02 19:11 | CM.DANOTE ---
DCP: Assessment. 77 yo male who arrived to ED and was admitted after a fall at home down 9 stairs. This CM Reviewed pt chart and met with pt in his room. Pt laying in his bed with present and attempting him to support him with repositioning. This CM, RN educated and supported pt's with providing pillows to areas of discomfort. Introduced self and role. Pt reports that he does drive at baseline and that he has had [facility] in the near past. He states that he fell down 14 stairs at home and that if he is able to go home that they will have to put in a stair cindy or an elevator to alleviate another accident on the stairs. PCP Yunior Atkinson Insurance Medicare; [facility] Plan: SNF placement when medically stable, PT pending. Manjula Dickinson RN Case Manager Discharge Planning/Care Management Discharge Assessment Start: 08/02/22 19:07 Freq: Status: Active Protocol: Document 08/02/22 19:07 SIGRID (Rec: 08/02/22 19:10 SIGRID [id number]) Discharge Planning Assessment Assigned Accounts Payable Coordinator Manjula Dickinson RN Case Manager Advance Directives? No History Provided By Patient Prior Living Arrangements House Household Members spouse Type of transporation used prior to Drives own vehicle admit Independent with ADL's Yes Is patient alert and oriented? Yes Caregiver for Another No Patient/Family Preference Longterm Facility Barriers to Discharge Yes Comment 9 to 14 steps at home. Although reports that he can live on main floor without the use of steps if needed. Discharge Plan Longterm Facility Transportation Arrangement TBD Referrals Initiated Longterm If patient plan is SNF: Has PASSR been No completed? Medicare Choice List Provided No Whiteboard Updated in Patient Room with Yes name and ext. # of Accounts Payable Coordinator Review Status In Process Next Review Type Continued Stay Review
[2022-08-02 20:00] VITALS: BP 166/95; PULSE 75; RESP 17; TEMP 36.9; O2SAT 95
[2022-08-02 22:03] VITALS: BP 175/93; PULSE 70
[2022-08-02] MEDS: SENNOSIDES 8.6 MG TABLET PO (22:03)
[2022-08-02] MEDS: MELATONIN 3 MG TABLET 6 MG PO (22:04)
[2022-08-03] VITALS (8 sets, daily range): BP systolic 143–160; BP diastolic 78–85; PULSE 66–75; RESP 15–19; TEMP 36.6–37.7; O2SAT 95–98
[2022-08-03] MEDS: HYDROCODONE/ACET 5/325 TABLET 1 TAB PO (02:20)
[2022-08-03 05:09] LABS: Add Manual Diff / Slide Review NO; Basophils Absolute Auto 100 /uL (0-100); Basophils Percent Auto 0.6 % (0-2); Eosinophils Absolute Auto 400 /uL (0-450); Eosinophils Percent Auto 3.3 % (2-4); Hematocrit 24.1 % (41-53); Hemoglobin 8.1 g/dL (13.5-17.5); Lymphocytes Absolute Auto 2700 /uL (1100-4500); Mean Corpuscular HGB Conc 33.8 % (30-36); Mean Corpuscular Hemoglobin 33.9 PG (26-34); Mean Corpuscular Volume 100.3 fL (80-100); Monocytes Absolute Auto 1100 /uL (0-900); Monocytes Percent Auto 9.8 % (3-14); Neutrophils Absolute Auto 7100 /uL (1500-7000); Neutrophils Percent Auto 62.3 % (50-75); Platelet Count 159 X10^3/uL (150-400); Red Cell Distribution Width 14.4 % (11.6-14.8); White Blood Cell Count 11.4 X10^3/uL (4.5-11.0)
[2022-08-03 05:29] LABS: Alanine Aminotransferase 40 IU/L (<50); Albumin 3.5 g/dL (3.5-5.0); Albumin Globulin Ratio 1.1 (1.0-2.8); Alkaline Phosphatase 54 U/L (38-126); Aspartate Aminotransferase 31 IU/L (17-59); BUN Creatinine Ratio 36.6 (6-22); Bilirubin Total 1.1 mg/dL (0.2-1.3); Blood Urea Nitrogen 26 mg/dL (9-20); Calcium 8.3 mg/dL (8.4-10.2); Carbon Dioxide 24 mmol/L (22-32); Chloride 109 mmol/L (98-107); Estimated Glomerular Filt Rate > 60 mL/min (>60); Globulin 3.1 g/dL (1.7-4.1); Glucose 109 mg/dL (80-110); HEMOLYSIS < 15 (0-50); Potassium 4.5 mmol/L (3.4-5.1); Sodium 139 mmol/L (137-145); Total Protein 6.6 g/dL (6.3-8.2)
--- NOTE | 2022-08-03 08:44 | PC.NURSE ---
Addendum entered by Faizan Morrison R.N. 08/03/22 16:21: echo done per orders. continues attentive at bedside. Addendum entered by Faizan Morrison R.N. 08/03/22 13:01: ativan and robaxin per orders of good effect. Used Rema lift to large BSC earlier. tolerated relatively well. Original Note: Pt easily arousable, using home CPAP with no O2 bleed in. Pt A&O, follows commands.
--- NOTE | 2022-08-03 09:09 | DI.ECHO.S_ITS ---
[facility] +---------+ Hospital +---------+ : : [address] : : : [place], [place] : : : : [address] : : : : Phone: [phone]---------+ Echocardiogram Report + + :Name: CAN BLOOM Study Date: 08/03/2022 Height: 75 in : :[facility] ReadingLocation: Weight: 230 lb : : Gender: Male BSA: 2.3 m2 : :: 1945 Age: 77 yrs BP: 143/79 mmHg: :Reason For Study: POSSIBLE STAPH BACTEREMIA : : Performed By: Elizabeth Coelho : :Referring: CHICHO PIERRE : + + Interpretation Summary 1) Moderately increased left ventricular thickness (concentric) with normal size and normal systolic function (EF 60-65%). 2) Normal right ventricular size and function. 3) No significant valvular abnormalities on doppler assessment. No gross evidence for endocarditis, but cannot rule out entirely due to limited visualization of the valves. 4) No prior Echo available for cmparison. Procedure: A two-dimensional transthoracic echocardiogram with color flow and Doppler was performed. The study quality was technically difficult. There is no prior echocardiogram noted for this patient. The patient was in normal sinus rhythm during the exam. Left Ventricle: The left ventricle is normal in size. Left ventricular wall thickness is moderately increased. The ejection fraction is estimated to be 60-65%. There are no obvious focal wall motion abnormalities noted but poor endocardial definition reduces the sensitivity for the detection of such. Diastolic parameters suggest probable normal left ventricular diastolic function and normal filling pressures. Right Ventricle: The right ventricle grossly appears normal in size with probable normal systolic function. Atria: The left atrium is not well visualized. Right atrium not well visualized. Mitral Valve: The mitral valve is grossly normal. There is no mitral regurgitation noted. Aortic Valve: The aortic valve is grossly normal. There is no aortic valve stenosis. No aortic regurgitation is present. Tricuspid Valve: The tricuspid valve is not well visualized. Pulmonary artery pressures cannot be estimated because of the lack of a measurable TR jet velocity but the IVC suggests a CVP of around 8 mmHg. No tricuspid regurgitation. Pulmonic Valve: The pulmonic valve is not well visualized. Great Vessels: The aortic root is normal size. The ascending aorta is normal in size. The IVC is dilated (diameter is greater than 2.1 cm) yet it collapses greater than 50% with a sniff. This suggests a right atrial pressure of 8 mm Hg. Pericardium/ Pleura There is no pericardial effusion. MMode/2D Measurements & Calculations LVIDd: 5.2 cm LVOT diam: 2.2 cm LVIDs: 2.6 cm Ao root diam: 3.7 cm FS: 49.4 % asc Aorta Diam: 3.4 cm EPSS: 0.50 cm IVSd: 1.5 cm LVPWd: 1.4 cm LV troy. diameter/BSA (cm/m^2): 2.2 LV sys. diameter/BSA (cm/m^2): 1.1 IVC diam: 2.2 cm TAPSE: 2.9 cm Doppler Measurements & Calculations Ao V2 max: 158.3 cm/sec LVOT Max Earnest: 130.1 cm/sec Ao V2 mean: 107.6 cm/sec LV V1 max P.8 mmHg Ao max P.0 mmHg LV V1 VTI: 22.4 cm Ao mean P.3 mmHg ALAN(I,D): 2.9 cm2 Ao V2 VTI: 29.2 cm ALAN(V,D): 3.2 cm2 sev ratio: 0.77 ALAN indexed to BSA (cm^2/m^2): 1.3 MV E max earnest: 77.2 cm/sec PA V2 max: 112.1 cm/sec MV A max earnest: 80.6 cm/sec PA V2 mean: 75.1 cm/sec MV E/A: 0.96 PA mean P.5 mmHg Med Peak E' Earnest: 7.2 cm/sec PA pr(Accel): 48.2 mmHg E/E' med: 10.8 Lat Peak E' Earnest: 8.2 cm/sec E/E' lat: 9.4 E/e' average: 10.1 MV dec time: 0.24 sec SV(LVOT): 85.9 ml Reading Physician:04:42 PM
[2022-08-03] MEDS: DOCUSATE 100 MG CAPSULE 200 MG PO (09:43)
[2022-08-03] MEDS: carvediloL 12.5 MG TABLET PO ×2 (09:44→20:37)
[2022-08-03] MEDS: LIDOCAINE PATCH 1 EACH ADH..PATCH TOP (09:44)
[2022-08-03] MEDS: ONDANSETRON 4 MG ODT SL (09:44)
--- NOTE | 2022-08-03 11:06 | CM.DPC ---
DCP Cont: Met with patient and spouse, Pat. Went over Medicare Choice List on ipad, and gave spouse the paper as well. Patient is hopeful to be able to go home. Spouse not happy about the [facility] facilities, and really want him to go home. As a back up, did send referral to [facility], and Delisa indicated, they can accept, would need to bring his CPAP. Patient is hopeful for home with [facility].. Confirmed with Gila at [facility] that patient is currently on hold with them. They will just need a resumption order. P: DCP to continue to follow. Patient and spouse are hopeful to have [facility], instead of fpc, but [facility] does have referral for back up, spouse does not want patient out of town. Beverly Weller RN/[employer] Equipment Repairer
[2022-08-03] MEDS: methocarbamoL 500 MG TABLET 750 MG PO ×2 (12:05→20:39)
[2022-08-03] MEDS: SODIUM CHLORIDE 0.9% FLUSH 10 ML IV ×2 (12:06→20:39)
--- NOTE | 2022-08-03 12:20 | PT-IP ANOTE ---
in room with pt. Pt lying in bed in abvious distress. states pt complaining of excruciating pain in left cervical region. Refused PT at this time. Will check back later.
[2022-08-03] MEDS: LORazepam 2 MG/ML INJ 1 MG IV (12:23)
--- NOTE | 2022-08-03 13:39 | PT-IP ANOTE ---
Pt refused again in afternoon. States pain level too high.
--- NOTE | 2022-08-03 14:33 | P.PN_ITS ---
Subjective Subjective Date Patient Seen: 08/03/22 Interval history: 77 y.o. male with a history of atrial fibrillation anticoagulated on apixaban, NSTEMI, LINDA on nasal CPAP, peripheral neuropathy, wet macular degeneration, kidney stones admitted with weakness and DEMETRICE status post subdural hematoma due to falling down flight of stairs.? He also had a right cranial nerve 3 palsy. Patient has had worsening neck pain today, feels spastic. No numbness or tingling or weakness. Repeat blood cultures negative yesterday. Exam Vital Signs (past 8 hours): - 08/03/22 08:46 08/03/22 09:44 08/03/22 12:00 Temperature 98.0 F 98.2 F Pulse Rate 66 66 71 Respiratory Rate 17 17 Blood Pressure 154/85 H 154/85 H 143/79 H Pulse Oximetry 98 96 Oxygen Flow Rate 0 Oxygen Delivery Method Room Air,CPAP Oxygen Flow Rate 0 Narrative Exam Narrative: General:? Alert and conversant, breathing comfortably HEENT:? Persistent right upper lid droop, pupils equal and reactive, no gaze deviation. Eye patch in place today. Lungs:? Clear to auscultation Heart:? Regular rhythm Abdomen: Soft, non tender, non-distended. Extremities:? Nonedematous Neuro:? Affect normal/calm, not confused, speech fluent, no focal extremity weak ness Skin: Marked ecchymoses over right shoulder/arm and across lower back Objective Labs 08/03/22 04:50 08/03/22 04:50 Labs: Laboratory Results - last 24 hr 08/03/22 08/03/22 04:50 04:50 WBC 11.4 H RBC 2.40 L Hgb 8.1 L Hct 24.1 L MCV 100.3 H MCH 33.9 MCHC 33.8 RDW 14.4 Plt Count 159 Neut % (Auto) 62.3 Lymph % (Auto) 24.0 L [place] % (Auto) 9.8 Eos % (Auto) 3.3 Baso % (Auto) 0.6 Neut # (Auto) 7100 H Lymph # (Auto) 2700 [place] # (Auto) 1100 H Eos # (Auto) 400 Baso # (Auto) 100 Sodium 139 Potassium 4.5 Chloride 109 H Carbon Dioxide 24 BUN 26 H Creatinine 0.71 Estimated GFR > 60 BUN/Creatinine Ratio 36.6 H Glucose 109 Calcium 8.3 L Total Bilirubin 1.1 AST 31 ALT 40 Alkaline Phosphatase 54 Total Protein 6.6 Albumin 3.5 Globulin 3.1 Albumin/Globulin Ratio 1.1 PFSH Medical History Coronary artery disease Hx of non-ST elevation myocardial infarction (NSTEMI) Hyperlipidemia Hypertension Kidney stones Low back pain Shoulder pain Surgical History H/O lithotripsy Hx of appendectomy Hx of cardiac catheterization Family History Mother Renal cancer Father War operations involving destruction of aircraft due to c ollision with other aircraft, personnel, sequela Social History household members: spouse Smoking Status: Former smoker Assessment & Plan Assessment & Plan narrative: 1. Acute kidney injury, secondary to IV contrast, resolved -initial creatinine prior to 1st ER visit was 0.79, subsequently increasing creatinine, not improved after 6+ L IV fluids, however GFR back to normal on 08/01, improved further today. -on July 30 patient had chest/abdomen/pelvis CT with IV contrast and later same day head/neck CTA -patient encouraged to take fluids by mouth, hep-locked IV as appears well- hydrated -held initially losartan, HCTZ, allopurinol meds and avoid nephrotoxic agents, can resume HCTZ and losartan at half home dosing tomorrow. allopurinol on discharge. -monitor daily lytes, creatinine 2. 3rd cranial nerve palsy, right eye, secondary to subdural bleed -stable upper lid droop, continue to monitor 3. Subdural hematoma -has small right subdural and minimal left frontal subarachnoid bleed, evaluated at [facility] and discharged same day -stable on CT -hold blood thinners until FridayAugust 05 4. Weakness, left 7th rib fracture uncomplicated, secondary to trauma -PT consult requested -use acetaminophen and hydrocodone as needed 5. Paroxysmal atrial fibrillation, history of CAD -resumed carvedilol 12.5 mg b.i.d. -hold apixaban and ASA until FridayAugust 05 6.? Hypertension -maintain on amlodipine and carvedilol, hold other meds 7.? Leukocytosis, acute, resolved -there was no sign of respiratory, urinary infection. Blood cultures noted below. -may be related to trauma, unclear if bacteremia present. -stopped Zosyn 07/31, resumed ceftriaxone 08/02. -WBC now normal 8.? LINDA -continue own nasal CPAP during sleep 9. Weakness and mobility issues secondary to neuropathy -PT/OT consult 10. Acute anemia secondary to acute blood loss -secondary to extensive bruising in his back along with IV fluids - transfusion for Hg <7. h/h daily, Hg to 7.6 today. 11. Possible staph bacteremia - blood cultures both positive from 07/31, possible contaminant. Not ill appearing currently. Also of note from [facility] he had positive staph blood cultures per records. [facility] the[facility] e are two different staph species from the two sets of cultures. - It still feels likely that these represent contaminants, however patient had leukocytosis - repeat blood cultures without growth on 08/02. - started ceftriaxone on 08/02 as both cultures from 07/31 were positive. Zosyn given initially then stopped 07/31. - no current fever and leukocytosis improved (prior to initiation of antibiotic s) - TTE ordered but not suspicious for endocarditits. DVT prophylaxis: SCDs Dispo: possible discharge home with home health vs rehab, pending stability of anemia and possible patient's [facility] records were personally reviewed, along with extensive documentation here. Additional Historians include patient's spouse at bedside. COVID-19 COVID-19 status: Negative Time Spent With Patient Critical Care time: I spent a total of [] minutes of critical care time on this patient's care today; this time is exclusive of procedural time.
[2022-08-03] MEDS: cefTRIAXone 2,000 MG in SODIUM CHLORIDE 0.9% 100 ML 200 MG IV (15:41)
[2022-08-03] MEDS: ACETAMINOPHEN 325 MG TABLET 650 MG PO (16:39)
[2022-08-03] MEDS: DICLOFENAC 1% GEL 100 GM 1 APPLIC TOP (17:09)
[2022-08-03] MEDS: SENNOSIDES 8.6 MG TABLET PO (20:37)
[2022-08-03] MEDS: HYDROCODONE/ACET 5/325 TABLET 2 TAB PO (20:37)
[2022-08-03] MEDS: LORazepam 1 MG TABLET PO (20:37)
[2022-08-03] MEDS: MELATONIN 3 MG TABLET 6 MG PO (20:38)
[2022-08-04] VITALS (10 sets, daily range): BP systolic 115–152; BP diastolic 58–83; PULSE 65–82; RESP 16–20; TEMP 36.2–37.5; O2SAT 93–95
[2022-08-04] MEDS: HYDROCODONE/ACET 5/325 TABLET 1 TAB PO ×4 (04:08→20:57)
[2022-08-04] MEDS: hydroCHLOROthiazide 25 MG TABLET 12.5 MG PO (09:17)
[2022-08-04] MEDS: LOSARTAN 50 MG TABLET PO (09:17)
[2022-08-04] MEDS: carvediloL 12.5 MG TABLET PO ×2 (09:21→21:01)
[2022-08-04] MEDS: LIDOCAINE PATCH 1 EACH ADH..PATCH TOP (09:21)
[2022-08-04] MEDS: DOCUSATE 100 MG CAPSULE 200 MG PO (09:21)
[2022-08-04] MEDS: SODIUM CHLORIDE 0.9% FLUSH 10 ML IV ×2 (09:22→20:58)
[2022-08-04] MEDS: ACETAMINOPHEN 325 MG TABLET 650 MG PO ×2 (10:44→21:12)
--- NOTE | 2022-08-04 13:00 | CM.DPC ---
DCP Cont: Met with patient and spouse, Yolanda, in the room to discuss discharge planning. Brought in ipad with Medicare.gov website. Originally, yesterday, had mentioned [facility]. Pat has done her reviews as well, and is adamant about wanting patient to go home to resume his [facility]. Asked he if she wanted to consider skilled as back up, and she indicated, she wants to manage at home. She is working on getting a bedside commode, had seen her get up and use commode in his room, feels that she can manage. P: DCP to continue to follow. Plan now is home with resumption of [facility]. P.T, may need to work tomorrow with spouse on caregiver training. Beverly Weller RN/Retail Equipment Associate
--- NOTE | 2022-08-04 15:35 | PT.IPTN ---
Current Diagnoses Traumatic subdural hemorrhage with loss of consciousness status unknown, initial encounter (07/31/22) Physical Therapy Treatment Note M2 PT-IP Current Condition Start: 08/01/22 15:11 Freq: NEEDED Status: Active Protocol: Document 08/04/22 15:00 SP (Rec: 08/04/22 18:22 SP [id number]) Physical Therapy Current Condition Current Condition Evaluation Date 08/01/22 Treatment Diagnosis s/p fall; subdural hematoma; difficulty in walking Onset Date 07/31/22 M3 PT-IP Subjective Start: 08/01/22 15:11 Freq: NEEDED Status: Active Protocol: Document 08/04/22 15:00 SP (Rec: 08/04/22 18:22 SP [id number]) Subjective Physical Therapy Visit Type Type Treatment Note Visit Start Time 15:00 Visit Stop Time 15:35 Total Visit Minutes 35 Notes in room when arrived. Initiated CGT: donned gait belt, provided support after ed on assessment if able to support pt at home when medically cleared. Number of SEWING MACHINIST Visits 1 Physical Therapy Visit Comments Patient Comments Pt agreeable to working with PT Patient Goals Go home with to assist him. Therapy Pain Assessment Pain When Pain Assessed During Mobility Location Lower Back Intensity 5 Scale Used Numeric (0 - 10) Description Aching,Tender,With Movement Pain Behaviors Facial Grimacing,Restlessness Pain Management Techniques Distraction,Modification of Treatment,Re-positioning, Timing of Activity with Medications M4 PT-IP Mobility and Gait Start: 08/01/22 15:11 Freq: NEEDED Status: Active Protocol: Document 08/04/22 15:00 SP (Rec: 08/04/22 18:22 SP [id number]) PT-Bed Mobility Assessment Supine to Sit Supine to Sit Standby Assistance,Bedrails Sit to Supine Sit to Supine Minimal Assistance,Moderate Assistance,1 Person Assistance ,Bedrails Scooting Scooting to Edge of Bed Standby Assistance PT-Transfer Assessment Sit to and From Stand Sit to and from Stand Contact Guard Assistance, Minimal Assistance,1 Person Assistance,Use of Upper Extremities Equipment Transfer Assistive Device Gait Belt,Tripod Cane/Hurry Cane,Front Wheeled Walker Orthotic/Prosthetic Devices or Brace: No Transfers Transfer Destination Bed Transfer Technique pt ambulated using FWW, hurry cane Transfer Ability Level of Assist Contact Guard Assistance, Minimal Assistance,1 Person Assistance,Use of Upper Extremities Comments Mobility Comments Pt completed HOB flat Supine> sit and scoot to R EOB close SBA using bed rails and heavy BUE support self. Donned gait belt after suggestion safety support, STS cues push from bed to FWW, gait around bed to other side w/ FWW mod BUE WB on FWW, cued back step fully and reach back slow descend sit on bed. Seated rest, pt requested usually uses hurry cane at home. STS w/hurrry cane heavy opp UE push from bed. Short distance gait to sink Min A /SEWING MACHINIST for trunk support decrease foot clearance/stride then pt reach for sink for extra support. Ascend/descend 1 portable step use hurry cane on R and sink grab bar downward pressure like has at home near door to use Min A of / SEWING MACHINIST ( states has a neightbor that ccan help them both if needed 2nd person 2 step enter home) heavy pt BUEs, forward and back 4 step to assimulated home enterance. Pt gait back to side of bed w/ FWW CGA via . Ed for side step fully to HOB CG/Min A slow sit. sit> supine Mod A for BLEs into bed via , able side scoot/ center self in bed. SEWING MACHINIST recommending HHPT and 13/01 available with to assist him when medically cleared. Recommending FWW and BSC for home and stated will be contacting [employer] for borrowing devices tomorrow. Gait Assessment Gait Gait Assistance Required: Contact Guard Assist,Minimum Assistance,1 Person Assist Distance (Feet) 25 Able to Maintain Weight Bearing Status Yes During Gait Assistive Devices Assistive Device Gait Belt,Tripod Cane/Hurry Cane,Front Wheeled Walker Orthotic/Prosthetic Devices or Brace: No Gait Deviations General Gait Pattern Antalgic,Decreased Stride Length,Decreased Feet Clearance,Flexed Trunk Factors Limiting Gait Function Factors Limiting Gait Function Decreased Activity Tolerance, Decreased Strength,Limited Range of Motion,Pain,Poor Balance,Poor Safety Awareness Comments Gait Comments cued tall posture, closer to FWW, increase stride/foot clearance CG/ Min A w/ FWW, Min/Mod A with hurry cane in RUE 3 ft before use sink LUE support. Stair Climbing Assessment Evaluation Level of Assist On Stairs Contact Guard Assistance, Minimal Assistance,Moderate Assistance,1 Person Assistance Devices Stair Climbing Assistive Devices Tripod Cane/Hurry Cane,Left Railing Technique/Endurance Stair Climbing Direction Ascend and Descend Stair Climbing Technique Step to Step Number of Steps Climbed 1 Stair Climbing Set # Repetitions (reps) 2 Comments Stair Climbing Comments see mobility comments PT-Balance Assessment Sitting Balance and Reactions Static Sitting Balance Ability Good Dynamic Sitting Balance Ability Fair Standing Balance and Reactions Static Standing Balance Ability Good Dynamic Standing Balance Ability Fair Device Used FWW, poor w/ hurry cane M5 PT-IP Objective Assessments Start: 08/01/22 15:11 Freq: NEEDED Status: Active Protocol: Document 08/01/22 10:50 AB (Rec: 08/01/22 15:27 AB [id number]) Orientation Orientation/Cognition Level of Alertness Alert Orientation Name,Situation Safety Awareness Decreased Safety Awareness Strength Lower Extremity Strength Hip 4-/5 Knee 4-/5 Muscle Tone Muscle Tone WNL Yes M6 PT-IP Treatment Start: 08/01/22 15:11 Freq: NEEDED Status: Active Protocol: Document 08/04/22 15:00 SP (Rec: 08/04/22 18:22 SP [id number]) Physical Therapy Treatment Education Education Provided Safety M7 PT-IP Assessment and Plan Start: 08/01/22 15:11 Freq: NEEDED Status: Active Protocol: Document 08/04/22 15:00 SP (Rec: 08/04/22 18:22 SP [id number]) PT Summary Assessment and Plan Potential Rehabilitation Potential Fair Status of Condition at Evaluation Evolving Summary Impairments Pain,ROM,Strength,Balance, Coordination,Sensation,Tone, Cognition,Bed Mobility, Transfers,Gait,Activity Tolerance Progress Towards Goals Progressing Toward Goals,Slow Progress due to Pain,Slow Progress due to Activity Tolerance Assessment Summary Pt close SBA sup>Sit, Mod A sit>supine, transfer and gait CGA/ Min gait w/FWW, Min/Mod A w/ Hurrycane before requiring sink support. Completed 2 small steps L HR and hurry cane in RUE heavy BUEs, CG/MIn A of /SEWING MACHINIST and stated tall strong neighbor can give the 2nd person support if needed. Will continue to assess progress. Recommending HHPT available when medically cleared. Goals Bed Mobility Goal Standby Assistance Transfer Goal Standby Assistance,Front Wheeled Walker Gait Goal Standby Assistance,Front Wheel Walker Gait Distance 100 Other Goals up/down 2 steps using hurrycane CGA Days to Meet Goals 10 Frequency of Treatment Frequency Of Treatment Once a Day Treatment Plan Physical Therapy Treatment Plan Bed Mobility Training,Transfer Training,Gait Training, Therapeutic Exercise,Balance Retraining,Discharge Planning, Hot or Cold Pack,Neuromuscular Re-ed,Coordination Retraining ,Manual Therapy Other Recommendations and Next Treatment bed mob, transfers and gait w/ Focus FWW, 2 small step mgt with again in room for strength able complete just 2 of them. Precautions Other Precautions falls Recommendations To Nursing Amount of Assist Needed 1 Person Assist Discharge Recommendations PT Discharge Recommendations Home with 13/01 Assist Available,Home Health Equipment Needed for Home Before FWW, BSC Discharge Transportation Needs at Discharge Private Vehicle
[2022-08-04] MEDS: cefTRIAXone 2,000 MG in SODIUM CHLORIDE 0.9% 100 ML 200 MG IV (15:37)
--- NOTE | 2022-08-04 16:37 | P.PN_ITS ---
Subjective Subjective Date Patient Seen: 08/04/22 Interval history: 77 y.o. male with a history of atrial fibrillation anticoagulated on apixaban, NSTEMI, LINDA on nasal CPAP, peripheral neuropathy, wet macular degeneration, kidney stones admitted with weakness and DEMETRICE status post subdural hematoma due to falling down flight of stairs.? He also had a right cranial nerve 3 palsy. Patient has stable / improving neck pain today, feels spastic. No numbness or tingling or weakness. Repeat blood cultures negative yesterday. He was more mobile today with staff, not a anuja lift. Exam Vital Signs (past 8 hours): - 08/04/22 09:17 08/04/22 09:21 08/04/22 12:00 Temperature 97.7 F Pulse Rate 71 71 69 Respiratory Rate 16 Blood Pressure 132/66 132/66 131/77 Pulse Oximetry 94 Oxygen Flow Rate 0 Oxygen Delivery Method Room Air,CPAP Oxygen Flow Rate 0 Narrative Exam Narrative: General:? Alert and conversant, breathing comfortably HEENT:? Persistent right upper lid droop, pupils equal and reactive, no gaze deviation. Eye patch in place today. Lungs:? Clear to auscultation Heart:? Regular rhythm Abdomen: Soft, non tender, non-distended. Extremities:? Nonedematous Neuro:? Affect normal/calm, not confused, speech fluent, no focal extremity weakness Skin: Marked ecchymoses over right shoulder/arm and across lower back Objective Labs 08/03/22 04:50 08/03/22 04:50 PFSH Medical History Coronary artery disease Hx of non-ST elevation myocardial infarction (NSTEMI) Hyperlipidemia Hypertension Kidney stones Low back pain Shoulder pain Surgical History H/O lithotripsy Hx of appendectomy Hx of cardiac catheterization Family History Mother Renal cancer Father War operations involving destruction of aircraft due to collision with other aircraft, personnel, sequela Social History household members: spouse Smoking Status: Former smoker Assessment & Plan Assessment & Plan narrative: 1. Acute kidney injury, secondary to IV contrast, resolved -initial creatinine prior to 1st ER visit was 0.79, subsequently increasing creatinine, not improved after 6+ L IV fluids, however GFR back to normal on 08/01, and continuing to improve. -on July 30 patient had chest/abdomen/pelvis CT with IV contrast and later same day head/neck CTA -patient encouraged to take fluids by mouth, hep-locked IV as appears well- hydrated -held initially losartan, HCTZ, allopurinol meds and avoid nephrotoxic agents, can resume HCTZ and losartan at half home dosing tomorrow. allopurinol on discharge. -monitor daily lytes, creatinine 2. 3rd cranial nerve palsy, right eye, secondary to subdural bleed -stable upper lid droop, continue to monitor 3. Subdural hematoma -has small right subdural and minimal left frontal subarachnoid bleed, evaluated at [facility] and discharged same day -stable on CT -hold blood thinners until FridayAugust 05 4. Weakness, left 7th rib fracture uncomplicated, secondary to trauma -PT consult requested -use acetaminophen and hydrocodone as needed 5. Paroxysmal atrial fibrillation, history of CAD -resumed carvedilol 12.5 mg b.i.d. -hold apixaban and ASA until FridayAugust 05 6.? Hypertension -maintain on amlodipine and carvedilol, hold other meds 7.? Leukocytosis, acute, resolved -there was no sign of respiratory, urinary infection. Blood cultures noted below. -may be related to trauma, unclear if bacteremia present. -stopped Zosyn 07/31, resumed ceftriaxone 08/02. -WBC now normal 8.? LINDA -continue own nasal CPAP during sleep 9. Weakness and mobility issues secondary to neuropathy -PT/OT consult 10. Acute anemia secondary to acute blood loss -secondary to extensive bruising in his back along with IV fluids - transfusion for Hg <7. h/h daily, Hg to 7.6 today. 11. Possible staph bacteremia - blood cultures both positive from 07/31, possible contaminant. Not ill appearing currently. Also of note from [facility] he had positive staph blood cultures per records. Will work to obtain blood cultures from [facility] as there are two different staph species from the two sets of cultures. - It still feels likely that these represent contaminants, however patient had leukocytosis - repeat blood cultures without growth on 08/02. - started ceftriaxone on 08/02 as both cultures from 07/31 were positive. Zosyn given initially then stopped 07/31. - no current fever and leukocytosis improved (prior to initiation of antibiotics) - TTE ordered but not suspicious for endocarditits. DVT prophylaxis: SCDs Dispo: possible discharge home with home health vs rehab. Will need repeat PT/OT as he was anuja lift but now much improved. patient's [facility] records were personally reviewed, along with extensive documentation here. Additional Historians include patient's spouse at bedside. COVID-19 COVID-19 status: Negative Time Spent With Patient Critical Care time: I spent a total of [] minutes of critical care time on this patient's care today; this time is exclusive of procedural time.
[2022-08-04] MEDS: SENNOSIDES 8.6 MG TABLET PO (20:58)
[2022-08-05 00:10] VITALS: BP 134/74; PULSE 70; RESP 12; O2SAT 94
[2022-08-05] MEDS: HYDROCODONE/ACET 5/325 TABLET 1 TAB PO ×4 (00:33→16:21)
[2022-08-05 05:34] LABS: Add Manual Diff / Slide Review NO; Basophils Absolute Auto 100 /uL (0-100); Basophils Percent Auto 0.7 % (0-2); Eosinophils Absolute Auto 400 /uL (0-450); Hematocrit 23.9 % (41-53); Hemoglobin 8.2 g/dL (13.5-17.5); Lymphocytes Absolute Auto 2100 /uL (1100-4500); Mean Corpuscular HGB Conc 34.3 % (30-36); Mean Corpuscular Hemoglobin 34.8 PG (26-34); Mean Corpuscular Volume 101.5 fL (80-100); Monocytes Absolute Auto 1000 /uL (0-900); Monocytes Percent Auto 9.7 % (3-14); Neutrophils Absolute Auto 7100 /uL (1500-7000); Neutrophils Percent Auto 65.6 % (50-75); Platelet Count 196 X10^3/uL (150-400); Red Blood Cell Count 2.35 X10^6/uL (4.5-5.9); Red Cell Distribution Width 14.7 % (11.6-14.8); White Blood Cell Count 10.7 X10^3/uL (4.5-11.0)
[2022-08-05 05:45] LABS: BUN Creatinine Ratio 40.3 (6-22); Blood Urea Nitrogen 29 mg/dL (9-20); Calcium 8.2 mg/dL (8.4-10.2); Carbon Dioxide 26 mmol/L (22-32); Chloride 106 mmol/L (98-107); Estimated Glomerular Filt Rate > 60 mL/min (>60); Glucose 107 mg/dL (80-110); HEMOLYSIS < 15 (0-50); Magnesium 1.7 mg/dL (1.6-2.3); Potassium 4.1 mmol/L (3.4-5.1); Sodium 137 mmol/L (137-145)
[2022-08-05 06:00] VITALS: BP 114/75; PULSE 71; RESP 19; TEMP 36.7; O2SAT 94
[2022-08-05 08:00] VITALS: BP 150/87; PULSE 71; RESP 17; TEMP 37.3; O2SAT 94
[2022-08-05 08:12] VITALS: BP 150/87; PULSE 71
[2022-08-05] MEDS: carvediloL 12.5 MG TABLET PO (08:12)
[2022-08-05] MEDS: hydroCHLOROthiazide 25 MG TABLET 12.5 MG PO (08:12)
[2022-08-05] MEDS: LOSARTAN 50 MG TABLET PO (08:12)
[2022-08-05] MEDS: DOCUSATE 100 MG CAPSULE 200 MG PO (08:13)
[2022-08-05] MEDS: SODIUM CHLORIDE 0.9% FLUSH 10 ML IV ×2 (08:15→21:00)
[2022-08-05] MEDS: ONDANSETRON 4 MG ODT SL (08:50)
[2022-08-05] MEDS: GABAPENTIN 300 MG CAPSULE PO ×2 (10:09→16:12)
--- NOTE | 2022-08-05 10:54 | OT.IPNOTE ---
Attempted to see pt for OT eval and at this time pt in too much neck pain, nursing and hospitalist aware per pt. Able to suggest ADL equipment needs of BSC and to just sponge bath for now per . Pt's concerned of getting the pt into the car and house. Pt states to have his neighbor make a ramp for him. Pt's wanting to have other options and case management notified to speak with her. NO charge.
[2022-08-05] MEDS: methocarbamoL 500 MG TABLET 750 MG PO ×2 (12:12→18:03)
--- NOTE | 2022-08-05 12:47 | PM.PN.1 ---
Subjective Subjective Date Patient Seen: 08/05/22 Interval history: 77 y.o. male with a history of atrial fibrillation anticoagulated on apixaban, NSTEMI, LINDA on nasal CPAP, peripheral neuropathy, wet macular degeneration, kidney stones admitted with weakness and DEMETRICE status post subdural hematoma due to falling down flight of stairs.? He also had a right cranial nerve 3 palsy. Patient has worsened neck pain today, feels spastic. No numbness or tingling or weakness. Repeat blood cultures negative thus far. He was more mobile today with staff. Exam Vital Signs (past 8 hours): - 08/05/22 06:00 08/05/22 08:12 08/05/22 08:12 Temperature 98.1 F Pulse Rate 71 71 71 Respiratory Rate 19 Blood Pressure 114/75 150/87 H 150/87 H Pulse Oximetry 94 Oxygen Flow Rate 0 08/05/22 08:00 Temperature 99.1 F Pulse Rate 71 Respiratory Rate 17 Blood Pressure 150/87 H Pulse Oximetry 94 Oxygen Flow Rate 0 Oxygen Delivery Method Room Air,CPAP Oxygen Flow Rate 0 Narrative Exam Narrative: General:? Alert and conversant, breathing comfortably HEENT:? Persistent right upper lid droop, pupils equal and reactive, no gaze deviation. Eye patch in place today. Lungs:? Clear to auscultation Heart:? Regular rhythm Abdomen: Soft, non tender, non-distended. Extremities:? Nonedematous Neuro:? Affect normal/calm, not confused, speech fluent, no focal extremity weakness Skin: Marked ecchymoses over right shoulder/arm and across lower back Objective Labs 08/05/22 05:10 08/05/22 05:10 Labs: Laboratory Results - last 24 hr 08/05/22 08/05/22 05:10 05:10 WBC 10.7 RBC 2.35 L Hgb 8.2 L Hct 23.9 L MCV 101.5 H MCH 34.8 H MCHC 34.3 RDW 14.7 Plt Count 196 Neut % (Auto) 65.6 Lymph % (Auto) 20.0 L [place] % (Auto) 9.7 Eos % (Auto) 4.0 Baso % (Auto) 0.7 Neut # (Auto) 7100 H Lymph # (Auto) 2100 [place] # (Auto) 1000 H Eos # (Auto) 400 Baso # (Auto) 100 Sodium 137 Potassium 4.1 Chloride 106 Carbon Dioxide 26 BUN 29 H Creatinine 0.72 Estimated GFR > 60 BUN/Creatinine Ratio 40.3 H Glucose 107 Calcium 8.2 L Magnesium 1.7 PFSH Medical History Coronary artery disease Hx of non-ST elevation myocardial infarction (NSTEMI) Hyperlipidemia Hypertension Kidney stones Low back pain Shoulder pain Surgical History H/O lithotripsy Hx of appendectomy Hx of cardiac catheterization Family History Mother Renal cancer Father War operations involving destruction of aircraft due to collision with other aircraft, personnel, sequela Social History household members: spouse Smoking Status: Former smoker Assessment & Plan Assessment & Plan narrative: 1. Acute kidney injury, secondary to IV contrast, resolved -initial creatinine prior to 1st ER visit was 0.79, subsequently increasing creatinine, not improved after 6+ L IV fluids, however GFR back to normal on 08/01, and remains such today. -on July 30 patient had chest/abdomen/pelvis CT with IV contrast and later same day head/neck CTA -patient encouraged to take fluids by mouth, hep-locked IV as appears well-hydrated -held initially losartan, HCTZ, allopurinol meds and avoid nephrotoxic agents, can resume HCTZ and losartan at half home dosing tomorrow. allopurinol on discharge. -monitor daily lytes, creatinine 2. 3rd cranial nerve palsy, right eye, secondary to subdural bleed -stable upper lid droop, continue to monitor 3. Subdural hematoma -has small right subdural and minimal left frontal subarachnoid bleed, evaluated at [facility] and discharged same day -stable on CT -hold blood thinners until FridayAugust 05, will continue to hold for now until a bit more mobile and h/h continues to be stable (likely due to presumed back hematoma) 4. Weakness, left 7th rib fracture uncomplicated, secondary to trauma -Continue PT -pain control remains difficult, continue robaxin, hydrocodone 1-2 tabs prn, IV for breakthrough currently. 5. Paroxysmal atrial fibrillation, history of CAD -resumed carvedilol 12.5 mg b.i.d. -hold apixaban and ASA until FridayAugust 05. As above will continue to hold apixaban for now with back hematoma, but will resume asa. 6.? Hypertension -maintain on amlodipine and carvedilol, hold other meds 7.? Leukocytosis, acute, resolved -there was no sign of respiratory, urinary infection. Blood cultures noted below. -may be related to trauma, unclear if bacteremia present. -stopped Zosyn 07/31, resumed ceftriaxone 08/02. -WBC now normal 8.? LINDA -continue own nasal CPAP during sleep 9. Weakness and mobility issues secondary to above problems. -PT/OT consult 10. Acute anemia secondary to acute blood loss -secondary to extensive bruising / likely hematoma in his back along with IV fluids - transfusion for Hg <7. h/h daily, Hg to 7.6 at the [facility], now improved to 8.2. 11. Possible staph bacteremia - blood cultures both positive from 07/31, possible contaminant but not entirely sure. Not ill appearing currently. Also of note from [facility] he had positive staph blood cultures per records. Will work to obtain blood cultures from [facility] as there are two different staph species from the two sets of cultures. - It still feels likely that these represent contaminants, however patient had leukocytosis and seems reasonable to continue two weeks total of antibiotic therapy (Can be oral) for possible bacteremia. - repeat blood cultures without growth on 08/02. - started ceftriaxone on 08/02 as both cultures from 07/31 were positive. Zosyn given initially then stopped 07/31. - no current fever and leukocytosis improved (prior to initiation of antibiotics) - TTE ordered but not suspicious for endocarditits. DVT prophylaxis: SCDs Dispo: possible discharge home with home health vs rehab. Will need repeat PT/OT as he was anuja lift but now much improved. Probable discharge home in the next 1-2 days if no further bleeding after restarting asa and re-assessment of mobility. patient's [facility] records were personally reviewed, along with extensive documentation here. Additional Historians include patient's spouse at bedside. COVID-19 COVID-19 status: Negative Time Spent With Patient Critical Care time: I spent a total of [] minutes of critical care time on this patient's care today; this time is exclusive of procedural time.
--- NOTE | 2022-08-05 13:37 | CM.DPC ---
DCP: This CM spoke with Pts significant other with regards to a plan for transportation when pt is medically stable to go home. Per significant other, with pt permission and agreement, they would like to use either [employer] transportation or [employer]. Pt's significant other agrees to pay privately when asked. This CM reviewed the cost per [employer], Maryann whom I spoke with over the phone of 50$ to picker and packer and $4 per mile and a premium of up to $1.00 per Maryann for them coming from [facility]. Pt significant other agrees to pay privately after reviewing with her. She states that she does not care for calling pt's insurance company to authorize or pay for ride when asked by this CM. Pt's significant other called [employer] and she will go there tomorrow at 0900 to pick out a bsc, walker and whatever else she may need to support with care at home. Barrier to discharge today: Pain control Plan: Home tomorrow with significant other and Cecelia FORD. Manjula Dickinson, pro shop attendant
[2022-08-05 14:31] VITALS: BP 142/82; PULSE 68; RESP 17; TEMP 36.6; O2SAT 91
--- NOTE | 2022-08-05 14:53 | PT-IP ANOTE ---
Checked on pt for PT treatment this PM. He stated he is having worsening pain behind his right eye, continued double vision, nausea, and muscle spasm in his head and neck. He did not feel up to therapy today. Noted pt was up with PT yesterday and was able to accomplish a lot. Communicated same to hospitalist . Will follow up with pt as staffing allows. Pt's spouse states she will be available tomorrow for continued caregiver training but uncertain what hours exactly.
--- NOTE | 2022-08-05 14:59 | DI.CT.S_ITS ---
PROCEDURE: CT HEAD/BRAIN WO CON INDICATIONS: worsened vision, recent hemorrhage TECHNIQUE: Noncontrast 4.5 mm thick angled axial sections acquired from the foramen magnum to the vertex, with coronal and sagittal reformats. For radiation dose reduction, the following was used: automated exposure control, adjustment of mA and/or kV according to patient size. COMPARISON: [facility], CT, CT CERVICAL SPINE WO CON, 08/05/2022, 15:23. [facility], CT, CT ANGIO HEAD AND NECK, 07/30/2022, 13:20. [facility], CT, CT HEAD/BRAIN WO CON, 07/30/2022, 12:08. FINDINGS: Image quality: Mild streak artifact can be seen through the skull base. CSF spaces: Basal cisterns are patent. No extra-axial fluid collections. The ventricles are symmetric in size and shape. Brain: There is resolving hemorrhage along the right tentorium. A tiny amount of layering hemorrhage can be seen within the lateral ventricles posteriorly, as on series 2, image 16. On these images common there is minimal hemorrhage seen within the region of the cavernous sinus. No intracranial masses. There is cerebral volume loss for age, with resultant ventricular and sulcal prominence. There are periventricular and deep white matter chronic small vessel ischemic changes. There is intracranial internal carotid artery atherosclerosis. Skull and face: Scalp hematoma can be seen posteriorly and on the right, as on series 2, image 20. No associated calvarial fracture can be seen. Calvarium and visualized facial bones appear intact, without suspicious lesions. Sinuses: Visualized sinuses and mastoids are clear. IMPRESSION: Resolving subdural hemorrhage seen along the right tentorium. A small amount intraventricular hemorrhage is seen, which is attributed to redistribution of the prior hemorrhage. Resolving scalp hematoma seen posteriorly and on the right, without an associated calvarial fracture. Dictated by: Donnell Yeboah M.D. on 08/05/2022 at 14:59 Approved by: Donnell Yeboah M.D. on 08/05/2022 at 15:03
--- NOTE | 2022-08-05 14:59 | DI.CT.S_ITS ---
PROCEDURE: CT CERVICAL SPINE WO CON INDICATIONS: worsened neck pain, re-eval for fracture TECHNIQUE: Noncontrast 3 mm thick sections acquired from the skull base to the T4 level. Sagittal and coronal reformats were then constructed. For radiation dose reduction, the following was used: automated exposure control, adjustment of mA and/or kV according to patient size. COMPARISON: [facility], CT, CT HEAD/BRAIN WO CON, 08/05/2022, 15:23. [facility], CT, CT ANGIO HEAD AND NECK, 07/30/2022, 13:20. [facility], CT, CT CERVICAL SPINE WO CON, 07/30/2022, 12:08. FINDINGS: Image quality: This examination is somewhat limited by quantum mottle artifact. Bones: No fractures or dislocations. Visualized superior ribs are intact. Generalized moderate to prominent degenerative changes are seen, which are worst inferiorly. Soft tissues: There is soft tissue fullness seen within the region of the right tongue base, as on series 3, image 33. Prevertebral soft tissues are normal in thickness. No paravertebral hematomas. No apical pneumothoraces. IMPRESSION: Negative for fracture on this follow-up study. Soft tissue fullness is seen within the region of the right tongue base. Further workup is recommended, which may include narrowing gas can be versus a dedicated soft tissue neck protocol CT with IV contrast. Generalized moderate to prominent degenerative changes can be seen. Dictated by: Donnell Yeboah M.D. on 08/05/2022 at 15:03 Approved by: Donnell Yeboah M.D. on 08/05/2022 at 15:05
[2022-08-05] MEDS: MAGNESIUM CHLORIDE 64 MG TABLET 128 MG PO (16:12)
[2022-08-05] MEDS: cefTRIAXone 2,000 MG in SODIUM CHLORIDE 0.9% 100 ML 200 MG IV (16:12)
[2022-08-06] VITALS (10 sets, daily range): BP systolic 94–146; BP diastolic 45–81; PULSE 68–114; RESP 17–20; TEMP 36.7–37.2; O2SAT 91–93
[2022-08-06] MEDS: methocarbamoL 500 MG TABLET 750 MG PO ×2 (02:13→20:05)
[2022-08-06] MEDS: ACETAMINOPHEN 325 MG TABLET 650 MG PO ×2 (02:13→20:05)
[2022-08-06] MEDS: GABAPENTIN 300 MG CAPSULE PO ×3 (02:13→14:58)
[2022-08-06] MEDS: SENNOSIDES 8.6 MG TABLET PO ×2 (02:13→20:06)
[2022-08-06] MEDS: carvediloL 12.5 MG TABLET PO ×3 (02:15→20:08)
[2022-08-06 05:40] LABS: Add Manual Diff / Slide Review NO; Basophils Absolute Auto 100 /uL (0-100); Basophils Percent Auto 0.6 % (0-2); Eosinophils Absolute Auto 400 /uL (0-450); Eosinophils Percent Auto 3.5 % (2-4); Hematocrit 26.2 % (41-53); Hemoglobin 8.9 g/dL (13.5-17.5); Lymphocytes Absolute Auto 1700 /uL (1100-4500); Mean Corpuscular Hemoglobin 34.6 PG (26-34); Mean Corpuscular Volume 101.9 fL (80-100); Monocytes Absolute Auto 1100 /uL (0-900); Monocytes Percent Auto 10.2 % (3-14); Neutrophils Absolute Auto 7600 /uL (1500-7000); Neutrophils Percent Auto 69.7 % (50-75); Platelet Count 216 X10^3/uL (150-400); Red Blood Cell Count 2.57 X10^6/uL (4.5-5.9); Red Cell Distribution Width 15.1 % (11.6-14.8); White Blood Cell Count 10.9 X10^3/uL (4.5-11.0)
[2022-08-06 05:45] LABS: BUN Creatinine Ratio 29.8 (6-22); Blood Urea Nitrogen 25 mg/dL (9-20); Calcium 8.7 mg/dL (8.4-10.2); Carbon Dioxide 27 mmol/L (22-32); Chloride 104 mmol/L (98-107); Estimated Glomerular Filt Rate > 60 mL/min (>60); Glucose 111 mg/dL (80-110); HEMOLYSIS < 15 (0-50); Magnesium 1.7 mg/dL (1.6-2.3); Potassium 4.2 mmol/L (3.4-5.1); Sodium 138 mmol/L (137-145)
[2022-08-06] MEDS: ONDANSETRON 4 MG ODT SL (06:13)
--- NOTE | 2022-08-06 08:11 | PM.PN.1 ---
Subjective Subjective Date Patient Seen: 08/06/22 Interval history: Patient continues to have intermittent neck pain with spontaneous jerks of his left arm. 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 Bass contacted about any changes to his blood thinners. Exam Vital Signs (past 8 hours): - 08/06/22 01:00 08/06/22 02:15 08/06/22 02:43 Temperature 98.2 F Pulse Rate 114 H 114 H Respiratory Rate 20 Blood Pressure 146/78 H 146/78 H Pulse Oximetry 93 Oxygen Delivery Method CPAP Oxygen Flow Rate 1 Fraction of Inspired Oxygen 08/06/22 01:00 08/06/22 06:00 Temperature 99.0 F Pulse Rate 72 Respiratory Rate 17 Blood Pressure 119/67 Pulse Oximetry 92 Oxygen Delivery Method Nasal Cannula Oxygen Flow Rate 1 Fraction of Inspired Oxygen 24 Fraction of Inspired Oxygen 24 Oxygen Delivery Method CPAP Oxygen Flow Rate 1 Narrative Exam Narrative: General:? Alert and conversant, breathing comfortably HEENT:? Persistent right upper lid droop, pupils equal and reactive, no gaze deviation. Eye patch in place today. Lungs:? Clear to auscultation Heart:? Regular rhythm Abdomen: Soft, non tender, non-distended. Extremities:? Nonedematous Neuro:? Affect normal/calm, not confused, speech fluent, no focal extremity weakness Skin: Marked ecchymoses over right shoulder/arm and across lower back Objective Labs 08/06/22 04:55 08/06/22 04:55 Labs: Laboratory Results - last 24 hr 08/06/22 08/06/22 04:55 04:55 WBC 10.9 RBC 2.57 L Hgb 8.9 L Hct 26.2 L MCV 101.9 H MCH 34.6 H MCHC 34.0 RDW 15.1 H Plt Count 216 Neut % (Auto) 69.7 Lymph % (Auto) 16.0 L [place] % (Auto) 10.2 Eos % (Auto) 3.5 Baso % (Auto) 0.6 Neut # (Auto) 7600 H Lymph # (Auto) 1700 [place] # (Auto) 1100 H Eos # (Auto) 400 Baso # (Auto) 100 Sodium 138 Potassium 4.2 Chloride 104 Carbon Dioxide 27 BUN 25 H Creatinine 0.84 Estimated GFR > 60 BUN/Creatinine Ratio 29.8 H Glucose 111 H Calcium 8.7 Magnesium 1.7 PFSH Medical History Coronary artery disease Hx of non-ST elevation myocardial infarction (NSTEMI) Hyperlipidemia Hypertension Kidney stones Low back pain Shoulder pain Surgical History H/O lithotripsy Hx of appendectomy Hx of cardiac catheterization Family History Mother Renal cancer Father War operations involving destruction of aircraft due to collision with other aircraft, personnel, sequela Social History household members: spouse Smoking Status: Former smoker Assessment & Plan Assessment & Plan narrative: 1. Acute kidney injury, secondary to IV contrast, resolved -initial creatinine prior to 1st ER visit was 0.79, subsequently increasing creatinine, not improved after 6+ L IV fluids, however GFR back to normal on 08/01, and remains such today. -on July 30 patient had chest/abdomen/pelvis CT with IV contrast and later same day head/neck CTA -patient encouraged to take fluids by mouth, hep-locked IV as appears well-hydrated -held initially losartan, HCTZ, allopurinol meds and avoid nephrotoxic agents, now back on home HCTZ and losartan. Will resume allopurinol on discharge. -monitor daily lytes, creatinine 2. 3rd cranial nerve palsy, right eye, secondary to subdural bleed -stable upper lid droop, continue to monitor 3. Subdural hematoma -has small right subdural and minimal left frontal subarachnoid bleed, evaluated at [facility] and discharged same day -stable on CT -per located within [facility] hold blood thinners until FridayAugust 05 -spoke with Dr. 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 Weakness, left 7th rib fracture uncomplicated, secondary to trauma -Continue PT -pain control remains difficult, continue robaxin, hydrocodone 1-2 tabs prn, IV for breakthrough currently. 5. Paroxysmal atrial fibrillation, history of CAD -resumed carvedilol 12.5 mg b.i.d. -hold apixaban for 1-2 weeks, continue aspirin 6.? Hypertension -maintain on amlodipine and carvedilol, hold other meds 7.? Leukocytosis, acute, resolved -there was no sign of respiratory, urinary infection. Blood cultures noted below. -may be related to trauma, unclear if bacteremia present. -stopped Zosyn 07/31, resumed ceftriaxone 08/02. -WBC now normal 8.? LINDA -continue own nasal CPAP during sleep 9. Weakness and mobility issues secondary to above problems. -PT/OT consult 10. Acute anemia secondary to acute blood loss -secondary to extensive bruising / likely hematoma in his back along with IV fluids - transfusion for Hg <7. h/h daily, Hg to 7.6 at the [facility], now improved to 8.2. 11. Possible staph bacteremia - blood cultures both positive from 07/31, possible contaminant but not entirely sure. Not ill appearing currently. Also of note from [facility] he had positive staph blood cultures per records. Will work to obtain blood cultures from located within [facility] as there are two different staph species from the two sets of cultures. - It still feels likely that these represent contaminants, however patient had leukocytosis and seems reasonable to continue abx - repeat blood cultures without growth on 08/02. - started ceftriaxone on 08/02 as both cultures from 07/31 were positive. Zosyn given initially then stopped 07/31. - no current fever and leukocytosis improved (prior to initiation of antibiotics) - TTE ordered but returned with no suspicion for endocarditits. -will treat for 1 week of IV abx to finish on 08/07 DVT prophylaxis: SCDs Dispo: possible discharge home with home health vs rehab. Will need repeat PT/OT as he was anuja lift but now much improved. Probable discharge home in the next 1-2 days if no further bleeding after restarting asa and re-assessment of mobility. COVID-19 COVID-19 status: Negative Time Spent With Patient Critical Care time: I spent a total of [] minutes of critical care time on this patient's care today; this time is exclusive of procedural time.
[2022-08-06] MEDS: hydroCHLOROthiazide 25 MG TABLET 12.5 MG PO (09:44)
[2022-08-06] MEDS: DOCUSATE 100 MG CAPSULE 200 MG PO (09:44)
[2022-08-06] MEDS: LOSARTAN 50 MG TABLET PO (09:44)
[2022-08-06] MEDS: SODIUM CHLORIDE 0.9% FLUSH 10 ML IV ×2 (09:45→20:11)
[2022-08-06] MEDS: LIDOCAINE PATCH 1 EACH ADH..PATCH TOP (09:46)
[2022-08-06] MEDS: DICLOFENAC 1% GEL 100 GM 1 APPLIC TOP ×2 (09:50→18:35)
[2022-08-06] MEDS: HYDROCODONE/ACET 5/325 TABLET 1 TAB PO ×3 (09:50→20:07)
--- NOTE | 2022-08-06 12:20 | PT.IPTN ---
Current Diagnoses Traumatic subdural hemorrhage with loss of consciousness status unknown, initial encounter (07/31/22) Physical Therapy Treatment Note M2 PT-IP Current Condition Start: 08/01/22 15:11 Freq: NEEDED Status: Active Protocol: Document 08/06/22 12:06 LRN (Rec: 08/06/22 12:19 LRN [id number]) Physical Therapy Current Condition Current Condition Evaluation Date 08/01/22 Treatment Diagnosis s/p fall; subdural hematoma; difficulty in walking Onset Date 07/31/22 M3 PT-IP Subjective Start: 08/01/22 15:11 Freq: NEEDED Status: Active Protocol: Document 08/06/22 12:06 LRN (Rec: 08/06/22 12:19 LRN [id number]) Subjective Physical Therapy Visit Type Type Treatment Note Visit Start Time 11:44 Visit Stop Time 12:09 Total Visit Minutes 23 Notes in room during therapy. Physical Therapy Visit Comments Patient Comments Pt c/o MILLER pain 8/10. Initially didn't want therapy, but agreed to bed ex's then sit at edge of bed. Pt refused sitting in chair because too low. Pt finally agreed to bed ex's. Patient Goals Home with to assist. Therapy Pain Assessment Location Lower Back Intensity 8 Scale Used Numeric (0 - 10) Pain Behaviors Facial Grimacing,Restlessness M4 PT-IP Mobility and Gait Start: 08/01/22 15:11 Freq: NEEDED Status: Active Protocol: Document 08/04/22 15:00 SP (Rec: 08/04/22 18:22 SP [id number]) PT-Bed Mobility Assessment Supine to Sit Supine to Sit Standby Assistance,Bedrails Sit to Supine Sit to Supine Minimal Assistance,Moderate Assistance,1 Person Assistance ,Bedrails Scooting Scooting to Edge of Bed Standby Assistance PT-Transfer Assessment Sit to and From Stand Sit to and from Stand Contact Guard Assistance, Minimal Assistance,1 Person Assistance,Use of Upper Extremities Equipment Transfer Assistive Device Gait Belt,Tripod Cane/Hurry Cane,Front Wheeled Walker Orthotic/Prosthetic Devices or Brace: No Transfers Transfer Destination Bed Transfer Technique pt ambulated using FWW, hurry cane Transfer Ability Level of Assist Contact Guard Assistance, Minimal Assistance,1 Person Assistance,Use of Upper Extremities Comments Mobility Comments Pt completed HOB flat Supine> sit and scoot to R EOB close SBA using bed rails and heavy BUE support self. Donned gait belt after suggestion safety support, STS cues push from bed to FWW, gait around bed to other side w/ FWW mod BUE WB on FWW, cued back step fully and reach back slow descend sit on bed. Seated rest, pt requested usually uses hurry cane at home. STS w/hurrry cane heavy opp UE push from bed. Short distance gait to sink Min A /[employer] for trunk support decrease foot clearance/stride then pt reach for sink for extra support. Ascend/descend 1 portable step use hurry cane on R and sink grab bar downward pressure like has at home near door to use Min A of / [employer]IDENTIAL [employer] ( states has a neightbor that ccan help them both if needed 2nd person 2 step enter home) heavy pt BUEs, forward and back 4 step to assimulated home enterance. Pt gait back to side of bed w/ FWW CGA via . Ed for side step fully to HOB CG/Min A slow sit. sit> supine Mod A for BLEs into bed via , able side scoot/ center self in bed. [employer]IAL [employer]IVER recommending HHPT and 24/ available with to assist him when medically cleared. Recommending FWW and BSC for home and stated will be contacting [employer] for borrowing devices tomorrow. Gait Assessment Gait Gait Assistance Required: Contact Guard Assist,Minimum Assistance,1 Person Assist Distance (Feet) 25 Able to Maintain Weight Bearing Status Yes During Gait Assistive Devices Assistive Device Gait Belt,Tripod Cane/Hurry Cane,Front Wheeled Walker Orthotic/Prosthetic Devices or Brace: No Gait Deviations General Gait Pattern Antalgic,Decreased Stride Length,Decreased Feet Clearance,Flexed Trunk Factors Limiting Gait Function Factors Limiting Gait Function Decreased Activity Tolerance, Decreased Strength,Limited Range of Motion,Pain,Poor Balance,Poor Safety Awareness Comments Gait Comments cued tall posture, closer to FWW, increase stride/foot clearance CG/ Min A w/ FWW, Min/Mod A with hurry cane in RUE 3 ft before use sink LUE support. Stair Climbing Assessment Evaluation Level of Assist On Stairs Contact Guard Assistance, Minimal Assistance,Moderate Assistance,1 Person Assistance Devices Stair Climbing Assistive Devices Tripod Cane/Hurry Cane,Left Railing Technique/Endurance Stair Climbing Direction Ascend and Descend Stair Climbing Technique Step to Step Number of Steps Climbed 1 Stair Climbing Set # Repetitions (reps) 2 Comments Stair Climbing Comments see mobility comments PT-Balance Assessment Sitting Balance and Reactions Static Sitting Balance Ability Good Dynamic Sitting Balance Ability Fair Standing Balance and Reactions Static Standing Balance Ability Good Dynamic Standing Balance Ability Fair Device Used FWW, poor w/ hurry cane M5 PT-IP Objective Assessments Start: 08/01/22 15:11 Freq: NEEDED Status: Active Protocol: Document 08/01/22 10:50 AB (Rec: 08/01/22 15:27 AB [id number]) Orientation Orientation/Cognition Level of Alertness Alert Orientation Name,Situation Safety Awareness Decreased Safety Awareness Strength Lower Extremity Strength Hip 4-/5 Knee 4-/5 Muscle Tone Muscle Tone WNL Yes M6 PT-IP Treatment Start: 08/01/22 15:11 Freq: NEEDED Status: Active Protocol: Document 08/06/22 12:06 LRN (Rec: 08/06/22 12:19 LRN [id number]) Physical Therapy Treatment Exercises Exercises Gluteal Sets,Heel Slides, Straight Leg Raises,Supine Hip Abduction Education Education Provided Safety Other Treatments Other Treatment Performed Training for breathing during ex and for pressure to be applied at area of rib fractures if painful. M7 PT-IP Assessment and Plan Start: 08/01/22 15:11 Freq: NEEDED Status: Active Protocol: Document 08/06/22 12:06 LRN (Rec: 08/06/22 12:19 LRN [id number]) PT Summary Assessment and Plan Potential Rehabilitation Potential Fair Status of Condition at Evaluation Evolving Summary Progress Towards Goals Slow Progress due to Pain,Slow Progress due to Medical Issues,Slow Progress due to Activity Tolerance Assessment Summary Pt having severe headache rated 8/10, limiting his desire to mobilize. He was agreeable to ex's and did not complain with ex's. The pt needed assist with SLR otherwise was able to perform them independently. He would be able to tolerate resistance with Bent Knee Fall Out exercise. Pt was encouraged to sit up for lunch and to monitor response to upright sitting. Pt has been sitting upright in bed for meals. Goals Bed Mobility Goal Standby Assistance Transfer Goal Standby Assistance,Front Wheeled Walker Gait Goal Standby Assistance,Front Wheel Walker Gait Distance 100 Other Goals up/down 2 steps using hurrycane CGA Days to Meet Goals 10 Frequency of Treatment Frequency Of Treatment Once a Day Treatment Plan Physical Therapy Treatment Plan Bed Mobility Training,Transfer Training,Gait Training, Therapeutic Exercise,Balance Retraining,Discharge Planning, Hot or Cold Pack,Neuromuscular Re-ed,Coordination Retraining ,Manual Therapy Other Recommendations and Next Treatment Issue T-Band for bed ex of Focus BKFO, and if needed ex handouts. Bed mob, transfers and gait w/ FWW, 2 small step mgt with again in room for strength able complete just 2 of them. Precautions Other Precautions falls Recommendations To Nursing Amount of Assist Needed 1 Person Assist Discharge Recommendations PT Discharge Recommendations Home with / Assist Available,Home Health Equipment Needed for Home Before FWW, BSC Discharge Transportation Needs at Discharge Private Vehicle
[2022-08-06] MEDS: cefTRIAXone 2,000 MG in SODIUM CHLORIDE 0.9% 100 ML 200 MG IV (14:58)
--- NOTE | 2022-08-06 15:43 | OT.IPNOTE ---
Pt resting and not wanting to try OT this PM due pain, pt states to try OT eval tomorrow morning.
[2022-08-07] MEDS: methocarbamoL 500 MG TABLET 750 MG PO (01:03)
[2022-08-07] MEDS: HYDROCODONE/ACET 5/325 TABLET 1 TAB PO ×2 (01:03→13:31)
[2022-08-07 02:00] VITALS: BP 118/61; PULSE 66; RESP 21; TEMP 36.1; O2SAT 93
[2022-08-07 04:41] LABS: Add Manual Diff / Slide Review NO; Basophils Absolute Auto 100 /uL (0-100); Basophils Percent Auto 0.7 % (0-2); Eosinophils Absolute Auto 300 /uL (0-450); Eosinophils Percent Auto 3.6 % (2-4); Hematocrit 25.4 % (41-53); Hemoglobin 8.6 g/dL (13.5-17.5); Lymphocytes Absolute Auto 2000 /uL (1100-4500); Lymphocytes Percent Auto 21.7 % (25-40); Mean Corpuscular HGB Conc 33.7 % (30-36); Mean Corpuscular Hemoglobin 34.4 PG (26-34); Mean Corpuscular Volume 102.1 fL (80-100); Monocytes Absolute Auto 1100 /uL (0-900); Monocytes Percent Auto 11.7 % (3-14); Neutrophils Absolute Auto 5700 /uL (1500-7000); Neutrophils Percent Auto 62.3 % (50-75); Platelet Count 202 X10^3/uL (150-400); Red Blood Cell Count 2.49 X10^6/uL (4.5-5.9); Red Cell Distribution Width 15.5 % (11.6-14.8); White Blood Cell Count 9.1 X10^3/uL (4.5-11.0)
[2022-08-07 04:47] LABS: BUN Creatinine Ratio 33.7 (6-22); Blood Urea Nitrogen 32 mg/dL (9-20); Calcium 8.5 mg/dL (8.4-10.2); Carbon Dioxide 29 mmol/L (22-32); Chloride 106 mmol/L (98-107); Estimated Glomerular Filt Rate > 60 mL/min (>60); Glucose 119 mg/dL (80-110); HEMOLYSIS < 15 (0-50); Magnesium 1.8 mg/dL (1.6-2.3); Potassium 4.2 mmol/L (3.4-5.1); Sodium 137 mmol/L (137-145)
[2022-08-07 07:00] VITALS: RESP 18; TEMP 36.2; O2SAT 92
--- NOTE | 2022-08-07 08:48 | DIET.CONS2 ---
Addendum entered by Tressa Bacon 08/07/22 10:38: RD agrees with [employer] note below. Original Note: Dietary Inpatient Consultation Note Admission Date: 07/31/2022 00:37 RD screened pt for LOS >5 days. Pt consuming 50-100% of meals consistently. No nutrition needs identified. Diet: 07/31/22 Breakfast Heart Healthy Diet Diet Modifications: Sodium Level: 2 gm Sodium Nutrition Percent Meal Consumed 50% 08/06/22 18:00 Percent Meal Consumed 100% 08/06/22 13:46 Percent Meal Consumed 50% 08/06/22 09:00 Percent Meal Consumed 50% 08/05/22 18:00 Percent Meal Consumed 50% 08/05/22 09:00 Electronically Signed by: Nelly Nuñez 08/07/22 08:48 Clinical Dietitian [address] [address]
[2022-08-07] MEDS: LIDOCAINE PATCH 1 EACH ADH..PATCH TOP (09:11)
[2022-08-07 09:12] VITALS: BP 122/63; PULSE 64
[2022-08-07] MEDS: hydroCHLOROthiazide 25 MG TABLET 12.5 MG PO (09:12)
[2022-08-07] MEDS: LOSARTAN 50 MG TABLET PO (09:12)
[2022-08-07] MEDS: DOCUSATE 100 MG CAPSULE 200 MG PO (09:12)
[2022-08-07] MEDS: carvediloL 12.5 MG TABLET PO (09:12)
[2022-08-07] MEDS: ASPIRIN EC 81 MG TABLET PO (09:12)
[2022-08-07] MEDS: DICLOFENAC 1% GEL 100 GM 1 APPLIC TOP ×2 (09:13→13:31)
[2022-08-07] MEDS: SODIUM CHLORIDE 0.9% FLUSH 10 ML IV (09:19)
[2022-08-07] MEDS: HYDROCODONE/ACET 5/325 TABLET 2 TAB PO (10:21)
[2022-08-07 12:00] VITALS: BP 113/62; PULSE 63; RESP 17; TEMP 36.4; O2SAT 92
--- NOTE | 2022-08-07 12:03 | OT.IP.EVAL ---
Current Diagnoses Traumatic subdural hemorrhage with loss of consciousness status unknown, initial encounter (07/31/22) Past Medical History (Last Reviewed 07/31/22 @ 01:35 by VINAY Land) Coronary artery disease Hx of non-ST elevation myocardial infarction (NSTEMI) Hyperlipidemia Hypertension Kidney stones Low back pain Shoulder pain Surgical History (Last Reviewed 07/31/22 @ 01:35 by VINAY Land) H/O lithotripsy Hx of appendectomy Hx of cardiac catheterization Occupational Therapy Inpatient Evaluation/Re-Eval M1 PT/OT-IP Prior Functional Status Start: 08/01/22 15:11 Freq: NEEDED Status: Active Protocol: Document 08/07/22 11:28 [facility] (Rec: 08/07/22 12:44 [facility] [id number]) Medical Review Prior Functional Status Medical History Reviewed Yes Communication able to make needs known Mobility and Gait pt stated that he is independent with all mobilities and ambulation using a hurrycane most of the time but also able to ambulate without AD Activities of Daily Living and IADL's Pt states was assisting him with showers prior. Social History Household Members spouse Living Arrangements House Number of Floors (Floors) Two Floors Number of Stairs To Enter/Railing? 2 steps to enter without rails 14 steps R rail to get to the bedroom level: pt stated that he can stay on the first level of the house Home Environment High Toilet,Walk in Shower Home Equipment Hand Held Shower,Lift Recliner ,Grab Bars In Shower Additional Social History Comment pt has a R side bed cane M2 OT-IP Current Condition Start: 08/07/22 12:04 Freq: Status: Active Protocol: Document 08/07/22 11:28 [facility] (Rec: 08/07/22 12:44 [facility] [id number]) Occupational Therapy Current Condition Current Condition Evaluation Date 08/07/22 Treatment Diagnosis S/p Fall subdural hematoma Diagnosis Onset Date 07/31/22 M3 OT- IP Subjective and Pain Start: 08/07/22 12:04 Freq: Status: Active Protocol: Document 08/07/22 11:28 [facility] (Rec: 08/07/22 12:44 [facility] [id number]) OT- Subjective Occupational Therapy Visit Type Type Initial Evaluation Visit Start Time 11:28 Visit Stop Time 12:03 Total Visit Minutes 31 Occupational Therapy Visit Comments Patient Comments Pt sitting on the BSC when OT came to work with the pt. Patient/Caregiver Goals TO go home. OT Pain Assessment Pain When Pain Assessed During Mobility Pain Present Pain Present Denied Pain M4 OT- IP ADL's Start: 08/07/22 12:04 Freq: Status: Active Protocol: Document 08/07/22 11:28 [facility] (Rec: 08/07/22 12:44 [facility] [id number]) OT [id number] Comments OT Self-Feeding Comments No needs anticipated. OT ADL-Grooming Comments OT Grooming Comments Not performed. OT ADL-Oral Care Comments Oral Care Comments Not performed. OT ADL-Dressing General Eval Lower Body Dressing Ability Maximum Assistance Comments OT Dressing Comments Pt will need extensive assist for all dressing needs. Pt educated on LB dressing equipment or sock aid, cherry cutter , shoe horn, and long handled brush. OT ADL-Toileting General Evaluation Toileting Ability Maximum Assistance Areas Needing Assistance Manage Clothing,Perform Perineal Hygiene Comments OT Toileting Comments Pt will need extensive assist for all hygiene and clothing management needs. OT ADL-Bathing Comments OT Bathing Comments Sponge bath more appropriate at this time. M5 OT- IP IADL's Start: 08/07/22 12:04 Freq: Status: Active Protocol: Document 08/07/22 11:28 [facility] (Rec: 08/07/22 12:44 [facility] [id number]) OT-Instrumental Activities of Daily Living Home Safety Awareness Awareness of Need for Assistance at Home Good Awareness Ability to Problem Solve Emergency Able to Problem Solve Situations M6 OT- IP Functional Cognition Start: 08/07/22 12:04 Freq: Status: Active Protocol: Document 08/07/22 11:28 [facility] (Rec: 08/07/22 12:44 [facility] [id number]) Cognitive Factors Limiting Selfcare Function Cognitive Ability Level of Alertness Alert Patient Orientation Name,Place,Situation Attention Span Ability Capable of Focused Attention, Capable of Sustained Attention Ability to Follow Commands Able to Follow One Step Commands Cognitive Comments Cognitive Assessment Comments Pt able to follow commands for ADl and mobility needs. Would be helpful to do a formal cognitive assessment on the pt . OT- Vision and Hearing OT- Hearing Assessment OT- Hearing Assessment WFL OT- Vision Assessment Diplopia Present Vision Assessment Comments Pt complaining of blurred vision as his right eye does not track well with his left eye at this time from his fall down the steps. M7 OT- IP Mobility and Balance Start: 08/07/22 12:04 Freq: Status: Active Protocol: Document 08/07/22 11:28 [facility] (Rec: 08/07/22 12:44 [facility] [id number]) OT- Bed Mobility Assessment Sit to Supine Sit to Supine Assist Minimal Assistance OT-Transfer Assessment Sit to and From Stand Sit to and from Stand Moderate Assistance Transfers Transfer Ability Minimal Assistance,Moderate Assistance Technique Transfer Destination Bed,Bedside Commode Devices Transfer Assistive Devices Gait Belt,Front Wheeled Walker Comments Mobility Comments Pt able to stand with his from the commode with MIN/ MODA and transfer back to the bed wit MIN/MODA and assist to help get his legs back onto the bed. Educated his to help steady the FWW as pt is fearful on the FWW getting away from him and afraid of falling. OT- Balance Assessment Sitting Balance and Reactions Static Sitting Balance Ability Good Dynamic Sitting Balance Ability Fair Standing Balance and Reactions Static Standing Balance Ability Fair Dynamic Standing Balance Ability Poor M8 OT- IP Objective Assessments Start: 08/07/22 12:04 Freq: Status: Active Protocol: Document 08/07/22 11:28 [facility] (Rec: 08/07/22 12:44 [facility] [id number]) OT Gross Range of Motion Upper Extremity Range of Motion Assessment Bilaterally Impaired OT Strength Upper Extremity Strength Assessment Right Impaired OT Sensation Assessment Edema Edema Comments Pt has swelling/bruising all throughout his RUE. M9 OT- IP Assessment and Plan Start: 08/07/22 12:04 Freq: Status: Active Protocol: Document 08/07/22 11:28 [facility] (Rec: 08/07/22 12:44 [facility] [id number]) OT Summary Assessment and Plan Potential Rehabilitation Potential Good Analytic Complexity at Evaluation Moderate Summary OT Impairments Pain,Range of Motion,Strength, Balance,Functional Mobility, Grooming,Dressing,Toileting, Bathing,Toilet Transfers, Shower Transfers,Activity Tolerance Progress Towards Goals Slow Progress due to Pain,Slow Progress due to Medical Issues,Slow Progress due to Activity Tolerance Assessment Summary Pr MOD complexity and able to go over OT equipment needs and training with his for ADl needs. Pt's able to assist pt for bed mobility, transfers and good understanding to assist for ADl needs. Goals Self-Feeding Goal Independent Grooming Goal Independent Dressing Goal Moderate Assistance Toileting Goal Moderate Assistance Bathing Goal Moderate Assistance Toilet Transfer Goal Contact Guard Assistance Shower Transfer Goal Contact Guard Assistance Days to Meet Goals 15 Frequency of Treatment Frequency Of Treatment Once a Day Treatment Plan OT Treatment Plan ADL Training,Functional Mobility,Patient/Family Education,Discharge Planning Discharge Recommendations OT Discharge Recommendations Home with 13/01 Assist Available,Home Health Home Equipment Needs BSC, shower chair, LB dressing equipment, fww Transportation Needs at Discharge Wheelchair/Cabulance
--- NOTE | 2022-08-07 12:18 | PT.IPTN ---
Current Diagnoses Traumatic subdural hemorrhage with loss of consciousness status unknown, initial encounter (07/31/22) Physical Therapy Treatment Note M2 PT-IP Current Condition Start: 08/01/22 15:11 Freq: NEEDED Status: Active Protocol: Document 08/06/22 12:06 LRN (Rec: 08/06/22 12:19 LRN [id number]) Physical Therapy Current Condition Current Condition Evaluation Date 08/01/22 Treatment Diagnosis s/p fall; subdural hematoma; difficulty in walking Onset Date 07/31/22 M3 PT-IP Subjective Start: 08/01/22 15:11 Freq: NEEDED Status: Active Protocol: Document 08/07/22 11:53 LJ (Rec: 08/07/22 12:18 LJ [id number]) Subjective Physical Therapy Visit Type Type Treatment Note Visit Start Time 11:03 Visit Stop Time 11:24 Total Visit Minutes 21 Notes in room during therapy. Physical Therapy Visit Comments Patient Goals Home with to assist. Therapy Pain Assessment Pain When Pain Assessed During Mobility M4 PT-IP Mobility and Gait Start: 08/01/22 15:11 Freq: NEEDED Status: Active Protocol: Document 08/07/22 11:53 LJ (Rec: 08/07/22 12:18 LJ [id number]) PT-Bed Mobility Assessment Supine to Sit Supine to Sit Standby Assistance,Head of Bed Elevated,Bedrails Scooting Scooting to Edge of Bed Standby Assistance PT-Transfer Assessment Sit to and From Stand Sit to and from Stand Contact Guard Assistance, Minimal Assistance,1 Person Assistance,Use of Upper Extremities Equipment Transfer Assistive Device Gait Belt,Front Wheeled Walker Orthotic/Prosthetic Devices or Brace: No Transfers Transfer Destination Bedside Commode Transfer Technique ambulated with FWW Transfer Ability Level of Assist Contact Guard Assistance,1 Person Assistance,Use of Upper Extremities Comments Mobility Comments Pt in bed reluctantly willing to work with therapy. in room willing to assist pt with mobility. Pt is SBA with bed mobility and CGA with sit<> stand. Slow to stand with heavy use of UEs on walker. Lowered FWW to better accomidate pts height. Min cues to straighted stance but noncompliant. Pt transfered to [facility] next to bed with several small steps providing CGA . Pt reached back and slowly lowered self onto seat. Stated he had to go but unable. This therapist suggested walk around room to get gut moving. Pt ambulated around bed to door and back to BSC assisted by , cued by this therapist proximity to FWW and erect posture. Pt sat back down on BSC and in attendance. Left pt sitting on BSC with in attendance. Notified OT and nsg pt status . Gait Assessment Gait Gait Assistance Required: Contact Guard Assist,1 Person Assist Distance (Feet) 25 Able to Maintain Weight Bearing Status Yes During Gait Assistive Devices Assistive Device Gait Belt,Front Wheeled Walker Orthotic/Prosthetic Devices or Brace: No Gait Deviations General Gait Pattern Antalgic,Decreased Stride Length,Decreased Feet Clearance,Flexed Trunk Factors Limiting Gait Function Factors Limiting Gait Function Decreased Activity Tolerance, Decreased Strength,Limited Range of Motion,Pain,Poor Balance,Poor Safety Awareness Comments Gait Comments cued tall posture, closer to FWW, increase stride/foot clearance. M5 PT-IP Objective Assessments Start: 08/01/22 15:11 Freq: NEEDED Status: Active Protocol: Document 08/01/22 10:50 AB (Rec: 08/01/22 15:27 AB [id number]) Orientation Orientation/Cognition Level of Alertness Alert Orientation Name,Situation Safety Awareness Decreased Safety Awareness Strength Lower Extremity Strength Hip 4-/5 Knee 4-/5 Muscle Tone Muscle Tone WNL Yes M6 PT-IP Treatment Start: 08/01/22 15:11 Freq: NEEDED Status: Active Protocol: Document 08/07/22 11:53 LJ (Rec: 08/07/22 12:18 LJ [id number]) Physical Therapy Treatment Education Education Provided Safety M7 PT-IP Assessment and Plan Start: 08/01/22 15:11 Freq: NEEDED Status: Active Protocol: Document 08/07/22 11:53 [email or web address] (Rec: 08/07/22 12:18 LJ [id number]) PT Summary Assessment and Plan Potential Rehabilitation Potential Fair Status of Condition at Evaluation Evolving Summary Impairments Pain,ROM,Strength,Balance, Coordination,Sensation,Tone, Cognition,Bed Mobility, Transfers,Gait,Activity Tolerance Progress Towards Goals Slow Progress due to Pain,Slow Progress due to Medical Issues,Slow Progress due to Activity Tolerance Assessment Summary Pt reluctant to participate in PT but agreed. assisting pt with mobility and gait. Pt improved with mobility and gait. Has equipment at home and will receive HH. Goals Bed Mobility Goal Standby Assistance Transfer Goal Standby Assistance,Front Wheeled Walker Gait Goal Standby Assistance,Front Wheel Walker Gait Distance 100 Other Goals up/down 2 steps using hurrycane CGA Days to Meet Goals 10 Frequency of Treatment Frequency Of Treatment Once a Day Treatment Plan Physical Therapy Treatment Plan Bed Mobility Training,Transfer Training,Gait Training, Therapeutic Exercise,Balance Retraining,Discharge Planning, Hot or Cold Pack,Neuromuscular Re-ed,Coordination Retraining ,Manual Therapy Precautions Other Precautions falls Recommendations To Nursing Amount of Assist Needed 1 Person Assist Discharge Recommendations PT Discharge Recommendations Home with 13/01 Assist Available,Home Health Equipment Needed for Home Before picked up at [employer] Discharge Transportation Needs at Discharge Private Vehicle
--- NOTE | 2022-08-07 13:42 | PM.DS.1 ---
History of Present Illness History of Present Illness Date Patient Seen: 08/07/22 Time Patient Seen: 01:14 Chief complaint: Recent subdural,increased weakness,unequal pupils Narrative: Hadley Wilkes is a 77 y.o. male with a history of atrial fibrillation anticoagulated on apixaban, NSTEMI, wet macular degeneration, kidney stones, being worked up for myositis, hx of bladder cancer was in his usual state of health when he was on a landing in his home and apparently fell down a flight of 9 stairs and sustained a subdural hematoma and a left frontal subacrachnoid hemmorrhage yesterday. He was airlifted to [facility] and apparently discharged earlier today. He represented to the ED today with increased weakness and inability to walk, right eye blurrieness X 6 hours. Stated he was administered multiple doses of IV dilaudid. He now complains of weakness, right eye and left sided rib pain determined to have sustained a buckle fracture and mild hypotension. Prior to transfer to [facility], 6 CTs were done in additional to another non-contrast CT at [facility]. He presented with worsening creatinine values and went from a normal eGFR of 60 to 36. He is being requested for admission for an acute kidney injury. Head and neck CTA was repeated today confirming no acute changes from previous imaging studies done the day before. Indicated a mild amount of subdural/subaractnoid blood along the right cavernous sinus. He is afebrile, blood pressure 107/63 heart rate 80 respiratory rate 17 oxygen saturation of 97% on 2 on a nasal CPAP machine he weighs 104.3 kg with a BMI of 28.7. WBC is 19.4 he is mildly anemic with hemoglobin and hematocrit of 11.5 and 35 he does have a left shift of 14,000 PT is 17.1 INR 1.5 creatinine is 1.89 however his baseline yesterday was normal his EGFR is 36 glucose 135 UA is unremarkable, COVID 19 PCR done at 2:00 a.m. this morning was negative. Discharge Providers Provider Date of admission: 07/31/22 00:37 Discharge Date: 08/07/22 Primary care physician: Yunior Atkinson MD Consults: 07/31/22 10:25 Consult to Physical Therapy Evaluate & Treat Comment: Physician Instructions: Evaluate and Treat 08/02/22 12:38 Consult to Occupational Therapy Evaluate & Treat Comment: Physician Instructions: Evaluate and treat Discharge provider: Kimani Sidhu DO Summary Hospital Course Discharge Diagnosis: 1. Acute kidney injury, secondary to IV contrast, resolved -initial creatinine prior to 1st ER visit was 0.79, subsequently increasing creatinine, not improved after 6+ L IV fluids, however GFR back to normal on 08/01, and remains such today. -on July 30 patient had chest/abdomen/pelvis CT with IV contrast and later same day head/neck CTA -patient encouraged to take fluids by mouth, hep-locked IV as appears well-hydrated -held initially losartan, HCTZ, allopurinol meds and avoid nephrotoxic agents, now back on home HCTZ and losartan. Will resume allopurinol on discharge. -monitor daily lytes, creatinine 2. 3rd cranial nerve palsy, right eye, secondary to subdural bleed -stable upper lid droop, continue to monitor 3. Subdural hematoma -has small right subdural and minimal left frontal subarachnoid bleed, evaluated at [facility] and discharged same day -stable on CT -per [facility] hold blood thinners until FridayAugust 05 -spoke with Dr. 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 Weakness, left 7th rib fracture uncomplicated, secondary to trauma -Continue PT -pain control remains difficult, continue robaxin, hydrocodone 1-2 tabs prn, IV for breakthrough currently. -PT cleared for home with 5. Paroxysmal atrial fibrillation, history of CAD -resumed carvedilol 12.5 mg b.i.d. -hold apixaban for 1-2 weeks, continue aspirin 6.? Hypertension -maintain on amlodipine and carvedilol, hold other meds 7.? Leukocytosis, acute, resolved -there was no sign of respiratory, urinary infection. Blood cultures noted below. -may be related to trauma, unclear if bacteremia present. -stopped Zosyn 07/31, resumed ceftriaxone 08/02. -WBC now normal 8.? LINDA -continue own nasal CPAP during sleep 9.? Weakness and mobility issues secondary to above problems. -PT/OT consulted and worked with patient 10. Acute anemia secondary to acute blood loss -secondary to extensive bruising / likely hematoma in his back along with IV fluids - transfusion for Hg <7. h/h daily, Hg to 7.6 at the [facility], now improved to 8.2. 11. Possible staph bacteremia ?- blood cultures both positive from 07/31, possible contaminant but not entirely sure. Not ill appearing currently. Also of note from [facility] he had positive staph blood cultures per records. Will work to obtain blood cultures from [facility] as there are two different staph species from the two sets of cultures. ?- It still feels likely that these represent contaminants, however patient had leukocytosis and seems reasonable to continue abx ?- repeat blood cultures without growth on 08/02. ?- started ceftriaxone on 08/02 as both cultures from 07/31 were positive. Zosyn given initially then stopped 07/31. ?- no current fever and leukocytosis improved (prior to initiation of antibiotics) ?- TTE ordered but returned with no suspicion for endocarditits. ?-will treat for 1 week of IV abx to finish on 08/07 Hospital Course: See problem list above. Time Spent with Patient Time spent: Greater than 30 minutes Exam Vital Signs (past 8 hours): - 08/07/22 09:12 08/07/22 09:12 08/07/22 07:00 Temperature 97.2 F L Pulse Rate 64 64 Respiratory Rate 18 Blood Pressure 122/63 122/63 Pulse Oximetry 92 Oxygen Flow Rate 0 08/07/22 12:00 Temperature 97.5 F L Pulse Rate 63 Respiratory Rate 17 Blood Pressure 113/62 Pulse Oximetry 92 Oxygen Flow Rate 0 Fraction of Inspired Oxygen 24 Oxygen Delivery Method Nasal Cannula,CPAP Oxygen Flow Rate 0 Narrative Exam Narrative: General:? Alert and conversant, breathing comfortably HEENT:? Persistent right upper lid droop, pupils equal and reactive, no gaze deviation. Eye patch in place today. Lungs:? Clear to auscultation Heart:? Regular rhythm Abdomen: Soft, non tender, non-distended. Extremities:? Nonedematous Neuro:? Affect normal/calm, not confused, speech fluent, no focal extremity weakness Skin: Marked ecchymoses over right shoulder/arm and across lower back Objective Labs 08/07/22 04:20 08/07/22 04:20 Labs: Laboratory Results - last 24 hr 08/07/22 08/07/22 04:20 04:20 WBC 9.1 RBC 2.49 L Hgb 8.6 L Hct 25.4 L MCV 102.1 H MCH 34.4 H MCHC 33.7 RDW 15.5 H Plt Count 202 Neut % (Auto) 62.3 Lymph % (Auto) 21.7 L [place] % (Auto) 11.7 Eos % (Auto) 3.6 Baso % (Auto) 0.7 Neut # (Auto) 5700 Lymph # (Auto) 2000 [place] # (Auto) 1100 H Eos # (Auto) 300 Baso # (Auto) 100 Sodium 137 Potassium 4.2 Chloride 106 Carbon Dioxide 29 BUN 32 H Creatinine 0.95 Estimated GFR > 60 BUN/Creatinine Ratio 33.7 H Glucose 119 H Calcium 8.5 Magnesium 1.8 PFSH Medical History Coronary artery disease Hx of non-ST elevation myocardial infarction (NSTEMI) Hyperlipidemia Hypertension Kidney stones Low back pain Shoulder pain Surgical History H/O lithotripsy Hx of appendectomy Hx of cardiac catheterization Family History Mother Renal cancer Father War operations involving destruction of aircraft due to collision with other aircraft, personnel, [place] Social History household members: spouse Smoking Status: Former smoker Discharge Plan Discharge Plan Patient Disposition: Home Health Service Provider Discharge Comment: You were admitted after falling down the stairs and sustaining bruising and a small bleed in your head. We are continuing your aspirin due to this but holding your eliquis for 1-2 weeks per your cardiologists recommendation. You may resume the rest of your home meds. I've sent some pain medication to your pharmacy to use in the short term for your neck and back pain. Discharge orders & Medications Prescriptions: New hydrocodone-acetaminophen 5-325 mg Tablet 1 - 2 tab PO Q4HR PRN (Reason: Pain, Severe (7-10)) Qty: 30 0RF Continued naltrexone hcl 4.5 mg PO DAILY Qty: 90 3RF losartan 100 mg tablet 100 mg PO DAILY Qty: 15 0RF Rx Instructions: NO FUTURE FILLS UNTIL SEEN. PLEASE CALL TO SCHEDULE APPT. THANKS 12/21/21 + 02/04/22. ICaps AREDS2 (copper citrate) 250 mg-200 unit -12.5 mg-1 mg tablet 1 tab PO BID icosapent ethyl 1 gram capsule 2 g PO BID Praluent Pen 150 mg/mL pen injector 150 mg SUBCUT Q14D allopurinol 300 mg tablet 300 mg PO DAILY Qty: 90 3RF acetaminophen 325 mg Tablet 3 dose PO PRN PRN (Reason: pain) aspirin 81 mg Tablet,Delayed Release (Dr/Ec) 81 mg PO DAILY PreserVision AREDS-2 [id number] Capsule 1 cap PO BID turmeric 1 tab PO DAILY Eliquis 5 mg tablet 5 mg PO BID Qty: 30 0RF Rx Instructions: restart in 1-2 weeks after bruising has healed hydrochlorothiazide 25 mg tablet 25 mg PO DAILY carvedilol 12.5 mg tablet 12.5 mg PO BID amlodipine 10 mg tablet 10 mg PO DAILY methocarbamol 500 mg tablet 500 mg PO TID Qty: 60 2RF lidocaine 5 % adhesive patch,medicated 1 patch topical DAILY Qty: 30 1RF Rx Instructions: leave on most painful area for 12 hrs (DME) Resmed Airsense 10 CPAP Qty: 1 Rx Instructions: Pressure: 10-18 cmH2O DME: [employer] Follow up/Referrals: Yunior Atkinson MD [Primary Care Provider] - 2 Weeks Visit Report/Discharge Packet Stand Alone Forms: Patient Portal/API, Stroke Signs & Symptoms Discharge Data Primary Care Provider: Yunior Atkinson
[2022-08-07] MEDS: cefTRIAXone 2,000 MG in SODIUM CHLORIDE 0.9% 100 ML 200 MG IV (14:04)
== END 2022-08-07 17:18 | disposition home health service (06) | DRG 682 ==
LOC: ED 18:21 → AC 07-31 00:38
PROVIDERS: Emergency Medicine; Internal Medicine; Admitting Provider Nurse Practitioner Family; Emergency Provider Emergency Medicine; Family Provider Student in an Organized Health Care Education/Training Program; PCP Student in an Organized Health Care Education/Training Program; Referring Provider Emergency Medicine; Visit Provider Nurse Practitioner Family
DX: N17.8 Other acute kidney failure (principal); S06.5XAA Traumatic subdural hemorrhage with loss of consciousness status unknown, initial encounter; S06.6XAA Traumatic subarachnoid hemorrhage with loss of consciousness status unknown, initial encounter; S22.32XA Fracture of one rib, left side, initial encounter for closed fracture; D62 Acute posthemorrhagic anemia; N14.11 Contrast-induced nephropathy; W10.9XXA Fall (on) (from) unspecified stairs and steps, initial encounter; T50.8X5A Adverse effect of diagnostic agents, initial encounter; H49.01 Third [oculomotor] nerve palsy, right eye; I25.10 Atherosclerotic heart disease of native coronary artery without angina pectoris; E78.5 Hyperlipidemia, unspecified; I10 Essential (primary) hypertension; I48.91 Unspecified atrial fibrillation; G47.33 Obstructive sleep apnea (adult) (pediatric); D72.829 Elevated white blood cell count, unspecified; T38.0X5A Adverse effect of glucocorticoids and synthetic analogues, initial encounter; I25.2 Old myocardial infarction; I95.9 Hypotension, unspecified; G62.9 Polyneuropathy, unspecified; H35.3290 Exudative age-related macular degeneration, unspecified eye, stage unspecified; Z20.822 Contact with and (suspected) exposure to COVID-19; S40.011A Contusion of right shoulder, initial encounter; Z79.01 Long term (current) use of anticoagulants; Z79.899 Other long term (current) drug therapy; Z79.82 Long term (current) use of aspirin; Z88.5 Allergy status to narcotic agent; Z88.8 Allergy status to other drugs, medicaments and biological substances; Z80.51 Family history of malignant neoplasm of kidney
CPT/HCPCS: 36415; 70450; 70496; 70498; 71045; 71260; 72125; 74177; 76770; 80048; 80053; 80305; 80320; 81001; 82550; 82570; 82962; 83605; 83690; 83735; 84300; 85025; 85610; 85730; 86850; 86900; 86901; 87040; 87077; 87150; 87186; 87635; 93005; 93010; 93306; 96365; 96366; 96367; 97110; 97162; 97166; 97530; 99285; 99291; 99292; C9803; G0390; J0696; J2060; J2543; J7168; Q9967

== ENCOUNTER 2022-08-08 21:19 | Emergency (ER) | payer MEDICARE, OTHER, SELFPAY ==
[2022-07-31 16:58] VITALS: BMI 28.7
[2022-08-08 21:19] VITALS: BP 168/99; PULSE 121; RESP 28; TEMP 37.2; O2SAT 93; BMI 40.6
[2022-08-08 21:26] VITALS: PULSE 121; RESP 23; O2SAT 94
[2022-08-08 21:30] VITALS: BP 187/121; PULSE 122; RESP 25; O2SAT 93
--- NOTE | 2022-08-08 21:42 | DI.CT.S_ITS ---
PROCEDURE: CT HEAD/BRAIN WO CON INDICATIONS: recent fall w/ sah and subdural TECHNIQUE: Noncontrast 4.5 mm thick angled axial sections acquired from the foramen magnum to the vertex, with coronal and sagittal reformats. For radiation dose reduction, the following was used: automated exposure control, adjustment of mA and/or kV according to patient size. COMPARISON: [facility], CT, CT HEAD/BRAIN WO CON, 08/05/2022, 15:23. FINDINGS: Image quality: Excellent. CSF spaces: Basal cisterns are patent. No extra-axial fluid collections. The ventricles are symmetric in size and shape. Brain: No new intracranial hemorrhage. There is stable amount of evolving hemorrhage along the right tentorium, trace residual hemorrhage in the posterior portion of the right lateral ventricle. The previously noted cavernous sinus hemorrhage is not well seen. There are several tiny basal ganglia lacunar infarcts and periventricular white matter hypodensities. No mass, mass effect, or midline shift. Skull and face: Stable size of right posterior parietal subcutaneous hematoma. Calvarium is intact. Sinuses: Visualized sinuses and mastoids are clear. IMPRESSION: 1. No CT evidence of new process. 2. Trace amount of subdural hemorrhage and intraventricular hemorrhage as described above overall slightly decreased in quantity. 3. Stable right posterior parietal scalp hematoma. Dictated by: Chloé Garcia M.D. on 08/08/2022 at 22:28 Approved by: Chloé Garcia M.D. on 08/08/2022 at 22:36
--- NOTE | 2022-08-08 21:42 | ED_ITS ---
HPI - Altered Mental Status General Chief Complaint: Altered Mental Status Stated Complaint: disoriented- increase drowsiness Time Seen by Provider: 08/08/22 21:31 Source: EMS Mode of arrival: EMS Limitations: no limitations History of Present Illness HPI narrative: This is a 77-year-old male coronary artery disease, hypertension, dyslipidemia, kidney stones, myositis and with recent history of subdural and subarachnoid hematoma transferred to [facility]. 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 Patient was also found to have acute kidney injury was hospitalized for several days discharged 2 days ago and states a t home he seems to be confused or his speech is altered. She states he is not making sense his she thought he had a little bit of blurred speech but also that he has trouble see me to express himself. Patient is able to tell me his name he gets the ear appropriately the month he is able to tell me about most of his history but seems to have some mild confusion. He is able to answer questions pretty clearly but does seem to have trouble expressing certain ideas. He denies any headache, he does have some persistent left-sided chest pain he states rib fractures. No new shortness of breath. No nausea or vomiting. No new vision changes. No new weakness numbness or tingling. Patient was having some constipation but states that improved yesterday. No new urinary changes. He was on Eliquis this has been stopped he is only taking an aspirin daily at this point. notes that he did have some issues while he was in the hospital and was receiving gabapentin as well as IV narcotic pain medications at the same time. She states he is had normal mentation the last several days of his hospital stay. She states he did have Vicodin 2 tablets the last which was at 5:00 a.m, almost 8-12 hours prior to his visit here. Patient has had a head CT in the interim which was reported stable. Patient has not had any new trauma. He is not had any falls. states that he has been from his myositis and recent hospitalization. Home healthcare supposed to arrive tomorrow. Related Data Home Medications Medication Instructions Recorded Confirmed acetaminophen 325 mg tablet 3 dose PO PRN PRN pain 08/12/18 07/31/22 aspirin 81 mg tablet,delayed 81 mg PO DAILY 08/12/18 07/31/22 release turmeric 1 tab PO DAILY 08/12/18 07/31/22 vit C 250 mg-vit E 90 mg-zinc 40 1 cap PO BID 08/12/18 07/31/22 mg-copper 1 qd-lcbrsi-urgjag capsule (PreserVision AREDS-2) Resmed Airsense 10 CPAP #1 ea 04/29/19 08/01/22 vit C 250 mg-vit E 200 unit-zinc 1 tab PO BID 10/04/20 07/31/22 12.5 mg-copper 1 wo-ano-etsxox tablet (ICaps AREDS2 (copper citrate)) alirocumab 150 mg/mL subcutaneous 150 mg SUBCUT Q14D 04/03/22 07/31/22 pen injector (Praluent Pen) icosapent ethyl 1 gram capsule 2 g PO BID 04/03/22 07/31/22 amlodipine 10 mg tablet 10 mg PO DAILY 05/20/22 07/31/22 carvedilol 12.5 mg tablet 12.5 mg PO BID 05/20/22 07/31/22 hydrochlorothiazide 25 mg tablet 25 mg PO DAILY 05/20/22 07/31/22 Previous Rx's Medication Instructions Recorded naltrexone hcl 4.5 mg PO DAILY #90 caps 08/29/21 losartan 100 mg tablet 100 mg PO DAILY #15 tabs 02/04/22 allopurinol 300 mg tablet 300 mg PO DAILY #90 tabs 04/03/22 methocarbamol 500 mg tablet 500 mg PO TID #60 tabs 05/20/22 lidocaine 5 % topical patch 1 patch topical DAILY #30 ea 06/25/22 apixaban 5 mg tablet (Eliquis) 5 mg PO BID #30 tabs 08/07/22 bisacodyl 10 mg rectal suppository 10 mg MT DAILY PRN constipation 08/07/22 (Gentle Laxative (bisacodyl)) #12 ea hydrocodone 5 mg-acetaminophen 325 1 - 2 tab PO Q4HR PRN Pain, Severe 08/07/22 mg tablet (7-10) #30 tabs Allergies Allergy/AdvReac Type Severity Reaction Status Date / Time prednisone Allergy Severe Confusion Verified 07/30/22 12:16 celecoxib [From Celebrex] Allergy Intermediate Gastrointestinal Verified 07/30/22 12:16 Upset oxycodone [From Percocet] Allergy Intermediate Nausea Verified 07/30/22 12:16 Osfdocm-LPV-AmS Reductase AdvReac Severe Autoimmune Verified 07/30/22 12:16 Inhibitor myositis [Nnkrqdh-Vdb-Axt Reductase Inhibitor] codeine AdvReac Mild Redness of Verified 07/30/22 12:16 Skin Review of Systems Review of Systems ROS Unobtainable: All systems reviewed & are unremarkable except as noted in HPI and below Patient History Medical History Coronary artery disease Hx of non-ST elevation myocardial infarction (NSTEMI) Hyperlipidemia Hypertension Kidney stones Low back pain Shoulder pain Surgical History H/O lithotripsy Hx of appendectomy Hx of cardiac catheterization Family History Mother Renal cancer Father War operations involving destruction of aircraft due to collision with other aircraft, personnel, sequela Social History household members: spouse Smoking Status: Former smoker Smoking Status: Former smoker alcohol intake frequency: a few times a week Substance Use Type: does not use Exam Narrative Exam Narrative: GEN: Obese male, alert and oriented to self, location and year, patient answers questions fairly appropriately but does seem to get confused and sometimes searches for answers, patient appears to be in mild distress. HEENT: Atraumatic, pupils are equal round reactive to light, extraocular movements are intact but do seem slightly off on the right, patient can take his eyes extraocular motions but you can tell a difference between the 2 sides. Pupils do actually appear equal today, they are reactive, Nares are clear, TMs are clear with no fluid, there is no conjunctival pallor. Throat is clear without any exudates, erythema, tonsillar enlargement or uvular deviation no facial droop HEART: Tachycardic but Regular rate and rhythm without murmur, clicks, rubs. pulses are equal in upper and lower extremities. No JVD appreciated. LUNGS:Lungs clear to auscultation, no wheezes, rales, crackles, chest moves symmetrically, no tachypnea accessory muscle use. ABD:bowel sounds normal, soft, non-tender, no guarding, rebound, rigidity, no masses noted, no hepatosplenomegaly :No CVA tenderness MSCL: Non-tender, no muscle atrophy, muscles strength 5/5 upper and lower extremities, full range of motion, normal gait NEURO:CN 2-12 intact, sensation normal SKIN: Patient has ecchymosis on his left chest his thigh, right upper ex tremity. Initial Vital Signs Initial Vital Signs: Vital Signs Temperature 99 F 08/08/22 21:19 Pulse Rate 121 H 08/08/22 21:19 Respiratory Rate 28 H 08/08/22 21:19 Blood Pressure 168/99 H 08/08/22 21:19 Pulse Oximetry 93 08/08/22 21:19 Oxygen Delivery Method 08/08/22 21:19 Scores GCS Shahid coma scale eye opening: Spontaneous Xenia coma scale verbal response: Confused Shahid coma scale motor response: Obey commands Shahid coma scale total score: 14 Course Orders Ordered: ED Orders 08/08/22 23:01 [place] [facility] [place] [facility] Stat Discontinued Medications Acetaminophen (Acetaminophen 325 Mg Tablet) 975 mg PO NOW ONE Stop: 08/09/22 05:21 Last Admin: 08/09/22 05:33 Dose: 975 mg Documented By: YOEL Hydrocodone Bitart/Acetaminophen (Hydrocodone/Acet 5/325 Tablet) 2 tab PO NOW ONE Stop: 08/08/22 22:29 Last Admin: 08/08/22 22:48 Dose: 2 tab Documented By: YOEL Levetiracetam 1,000 mg/ Sodium (Chloride) 110 mls @ 440 mls/hr IV NOW ONE Stop: 08/09/22 01:02 Last Infusion: 08/09/22 01:34 Dose: 0 mls/hr Documented By: Admin: 08/09/22 01:19 Dose: 440 mls/hr Documented By: YOEL Consultations Consultation #1: Dr. Gamboa, neurosurgery: Reviewed patient's recent visit for subdural and subarachnoid that patient was seen they are discharged developed a 3rd cranial nerve palsy which was felt to be secondary to his head bleed and ultimately was admitted here for renal failure and discharged yesterday. Discussed with him that patient's and patient's stay his speech is different that he seems sort of confused but almost like an expressive aphasia but not dense patient speak majority of sentences but seems to have trouble getting certain ideas out. He states this is very atypical seizures on the differential but the cranial nerve 3 palsy and recently reported history does not make this seem very likely. He would recommend talking with Neurology. Time: 01:01 Consultation #2: Neurology, [facility]: Dr. Salcido recommends MR and EEG testing. Discussed could be related to medication such as vicodin but no other potential causes. He cannot accept at this time as they have no bed availability. He does not feel strongly that patient needs to be on Keppra regularly and would have goal objective testing rather than continuing with anti epileptic. Time: 01:50 Vital Signs Vital signs: Vital Signs - 8 hr 08/09/22 03:00 08/09/22 03:00 08/09/22 06:23 Temperature 98.2 F Pulse Rate 70 76 Respiratory Rate 21 20 Blood Pressure 117/66 182/74 H Pulse Oximetry 96 94 Oxygen Delivery Method Room Air MDM - Altered Mental Status Lab Data 08/08/22 21:25 08/08/22 21:25 Labs: Lab Results 08/08/22 08/08/22 08/08/22 Range/Units 21:25 21:25 21:25 WBC 11.9 H (4.5-11.0) X10^3/uL RBC 2.84 L (4.5-5.9) X10^6/uL Hgb 9.9 L (13.5-17.5) g/dL Hct 28.9 L (41-53) % MCV 101.8 H (80-100) fL MCH 35.0 H (26-34) PG MCHC 34.3 (30-36) % RDW 16.1 H (11.6-14.8) % Plt Count 239 (150-400) X10^3/uL Neut % (Auto) 73.5 (50-75) % Lymph % (Auto) 14.4 L (25-40) % [place] % (Auto) 9.1 (3-14) % Eos % (Auto) 2.3 (2-4) % Baso % (Auto) 0.7 (0-2) % Neut # (Auto) 8800 H (8826-4373) /uL Lymph # (Auto) 1700 (8703-3656) /uL [place] # (Auto) 1100 H (0-900) /uL Eos # (Auto) 300 (0-450) /uL Baso # (Auto) 100 (0-100) /uL PT 14.6 H (10.1-12.7) SECONDS INR 1.3 (0.9-1.3) APTT 33 (26-36) SECONDS Sodium 137 (137-145) mmol/L Potassium 4.2 (3.4-5.1) mmol/L Chloride 103 (98-107) mmol/L Carbon Dioxide 25 (22-32) mmol/L BUN 24 H (9-20) mg/dL Creatinine 0.65 L (0.66-1.25) mg/dL Estimated GFR > 60 (>60) mL/min BUN/Creatinine Ratio 36.9 H (6-22) Glucose 93 (80-110) mg/dL Lactate (0.7-2.1) mmol/L Calcium 8.8 (8.4-10.2) mg/dL Total Bilirubin 2.2 H (0.2-1.3) mg/dL AST 38 (17-59) IU/L ALT 42 (<50) IU/L Alkaline Phosphatase 78 (38-126) U/L Total Creatine Kinase 289 H (55-170) U/L CK-MB (CK-2) 6.45 H (<2.37) ng/mL CK-MB (CK-2) Rel Index 2.2 (1.5-5.0) % Troponin I < 0.012 (0.01-0.034) ng/mL NT-Pro-B Natriuret Pep 143 (<450) pg/mL Total Protein 7.5 (6.3-8.2) g/dL Albumin 4.0 (3.5-5.0) g/dL Globulin 3.5 (1.7-4.1) g/dL Albumin/Globulin Ratio 1.1 (1.0-2.8) Lipase 49 D (23-300) U/L Procalcitonin (<0.5) ng/mL Urine Color Urine Appearance Urine pH (4.5-8.0) Ur Specific Wallace (1.000-1.035) Urine Protein (Negative) Urine Glucose (UA) (Negative) g/dL Urine Ketones (NEGATIVE) Urine Occult Blood (Negative) Urine Nitrate (Negative) Urine Bilirubin (NEGATIVE) Urine Urobilinogen (0.2) E.U./dL Ur Leukocyte Esterase (NEGATIVE) Urine RBC (0-5/HPF) Urine WBC (0-5/HPF) Ur Squamous Epith Cells (0-5/HPF) Urine Bacteria (None) Ur Culture Indicated? U Opiates 300ng/mL cut (Negative) Ur Oxycodone Screen (Negative) Urine Methadone Screen (Negative) Ur Barbiturates Screen (Negative) U Tricyclic Antidepress (Negative) Ur Phencyclidine Scrn (Negative) Ur Amphetamines Screen (Negative) U Methamphetamines Scrn (Negative) Ur MDMA Scrn (Ecstasy) (Negative) U Benzodiazepines Scrn (Negative) Urine Cocaine Screen (Negative) U Marijuana (THC) Screen (Negative) 08/08/22 08/08/22 08/08/22 Range/Units 21:25 21:25 22:03 WBC (4.5-11.0) X10^3/uL RBC (4.5-5.9) X10^6/uL Hgb (13.5-17.5) g/dL Hct (41-53) % MCV (80-100) fL MCH (26-34) PG MCHC (30-36) % RDW (11.6-14.8) % Plt Count (150-400) X10^3/uL Neut % (Auto) (50-75) % Lymph % (Auto) (25-40) % [place] % (Auto) (3-14) % Eos % (Auto) (2-4) % Baso % (Auto) (0-2) % Neut # (Auto) (8336-6485) /uL Lymph # (Auto) (4272-7512) /uL [place] # (Auto) (0-900) /uL Eos # (Auto) (0-450) /uL Baso # (Auto) (0-100) /uL PT (10.1-12.7) SECONDS INR (0.9-1.3) APTT (26-36) SECONDS Sodium (137-145) mmol/L Potassium (3.4-5.1) mmol/L Chloride (98-107) mmol/L Carbon Dioxide (22-32) mmol/L BUN (9-20) mg/dL Creatinine (0.66-1.25) mg/dL Estimated GFR (>60) mL/min BUN/Creatinine Ratio (6-22) Glucose (80-110) mg/dL Lactate 1.3 (0.7-2.1) mmol/L Calcium (8.4-10.2) mg/dL Total Bilirubin (0.2-1.3) mg/dL AST (17-59) IU/L ALT (<50) IU/L Alkaline Phosphatase (38-126) U/L Total Creatine Kinase (55-170) U/L CK-MB (CK-2) (<2.37) ng/mL CK-MB (CK-2) Rel Index (1.5-5.0) % Troponin I (0.01-0.034) ng/mL NT-Pro-B Natriuret Pep (<450) pg/mL Total Protein (6.3-8.2) g/dL Albumin (3.5-5.0) g/dL Globulin (1.7-4.1) g/dL Albumin/Globulin Ratio (1.0-2.8) Lipase (23-300) U/L Procalcitonin 0.10 (<0.5) ng/mL Urine Color Yellow Urine Appearance Clear Urine pH 7.0 (4.5-8.0) Ur Specific Wallace 1.015 (1.000-1.035) Urine Protein Negative (Negative) Urine Glucose (UA) Negative (Negative) g/dL Urine Ketones Negative (NEGATIVE) Urine Occult Blood Trace-intact (Negative) Urine Nitrate Negative (Negative) Urine Bilirubin Negative (NEGATIVE) Urine Urobilinogen 0.2 (0.2) E.U./dL Ur Leukocyte Esterase Negative (NEGATIVE) Urine RBC 0-1/hpf (0-5/HPF) Urine WBC None seen (0-5/HPF) Ur Squamous Epith Cells None seen (0-5/HPF) Urine Bacteria None seen (None) Ur Culture Indicated? Cult not indicated U Opiates 300ng/mL cut (Negative) Ur Oxycodone Screen (Negative) Urine Methadone Screen (Negative) Ur Barbiturates Screen (Negative) U Tricyclic Antidepress (Negative) Ur Phencyclidine Scrn (Negative) Ur Amphetamines Screen (Negative) U Methamphetamines Scrn (Negative) Ur MDMA Scrn (Ecstasy) (Negative) U Benzodiazepines Scrn (Negative) Urine Cocaine Screen (Negative) U Marijuana (THC) Screen (Negative) 08/08/22 Range/Units 22:03 WBC (4.5-11.0) X10^3/uL RBC (4.5-5.9) X10^6/uL Hgb (13.5-17.5) g/dL Hct (41-53) % MCV (80-100) fL MCH (26-34) PG MCHC (30-36) % RDW (11.6-14.8) % Plt Count (150-400) X10^3/uL Neut % (Auto) (50-75) % Lymph % (Auto) (25-40) % [place] % (Auto) (3-14) % Eos % (Auto) (2-4) % Baso % (Auto) (0-2) % Neut # (Auto) (9609-2764) /uL Lymph # (Auto) (5589-6120) /uL [place] # (Auto) (0-900) /uL Eos # (Auto) (0-450) /uL Baso # (Auto) (0-100) /uL PT (10.1-12.7) SECONDS INR (0.9-1.3) APTT (26-36) SECONDS Sodium (137-145) mmol/L Potassium (3.4-5.1) mmol/L Chloride (98-107) mmol/L Carbon Dioxide (22-32) mmol/L BUN (9-20) mg/dL Creatinine (0.66-1.25) mg/dL Estimated GFR (>60) mL/min BUN/Creatinine Ratio (6-22) Glucose (80-110) mg/dL Lactate (0.7-2.1) mmol/L Calcium (8.4-10.2) mg/dL Total Bilirubin (0.2-1.3) mg/dL AST (17-59) IU/L ALT (<50) IU/L Alkaline Phosphatase (38-126) U/L Total Creatine Kinase (55-170) U/L CK-MB (CK-2) (<2.37) ng/mL CK-MB (CK-2) Rel Index (1.5-5.0) % Troponin I (0.01-0.034) ng/mL NT-Pro-B Natriuret Pep (<450) pg/mL Total Protein (6.3-8.2) g/dL Albumin (3.5-5.0) g/dL Globulin (1.7-4.1) g/dL Albumin/Globulin Ratio (1.0-2.8) Lipase (23-300) U/L Procalcitonin (<0.5) ng/mL Urine Color Urine Appearance Urine pH (4.5-8.0) Ur Specific Wallace (1.000-1.035) Urine Protein (Negative) Urine Glucose (UA) (Negative) g/dL Urine Ketones (NEGATIVE) Urine Occult Blood (Negative) Urine Nitrate (Negative) Urine Bilirubin (NEGATIVE) Urine Urobilinogen (0.2) E.U./dL Ur Leukocyte Esterase (NEGATIVE) Urine RBC (0-5/HPF) Urine WBC (0-5/HPF) Ur Squamous Epith Cells (0-5/HPF) Urine Bacteria (None) Ur Culture Indicated? U Opiates 300ng/mL cut Negative (Negative) Ur Oxycodone Screen Negative (Negative) Urine Methadone Screen Negative (Negative) Ur Barbiturates Screen Negative (Negative) U Tricyclic Antidepress Negative (Negative) Ur Phencyclidine Scrn Negative (Negative) Ur Amphetamines Screen Negative (Negative) U Methamphetamines Scrn Negative (Negative) Ur MDMA Scrn (Ecstasy) Negative (Negative) U Benzodiazepines Scrn Negative (Negative) Urine Cocaine Screen Negative (Negative) U Marijuana (THC) Screen Negative (Negative) Point of Care Testing Glucose POC [address] scan - head: Radiologist's Impression: [address] [address] [address] Scan Report Signed Patient: Hadley Wilkes MR#: [id number] : 1945 Acct:[id number] Age/Sex: 77 / M Date of Service: 08/08/22 Loc: ED Accession Number: [id number] ?? Procedure: CT head/brain wo con Ordering Provider: Nata Palma D.O. PROCEDURE:? CT HEAD/BRAIN WO CON ? INDICATIONS:? recent fall w/ sah and subdural ? TECHNIQUE:? Noncontrast 4.5 mm thick angled axial sections acquired from the foramen magnum to the vertex, with coronal and sagittal reformats.? For radiation dose reduction, the following was used:? automated exposure control, adjustment of mA and/or kV according to patient size.? ? COMPARISON:? [facility], CT, CT HEAD/BRAIN WO CON, 08/05/2022, 15:23. ? FINDINGS:? Image quality:? Excellent.? ? CSF spaces:? Basal cisterns are patent.? No extra-axial fluid collections.? The ventricles are symmetric in size and shape.? ? Brain:? No new intracranial hemorrhage.? There is stable amount of evolving hemorrhage along the right tentorium, trace residual hemorrhage in the posterior portion of the right lateral ventricle.? The previously noted cavernous sinus hemorrhage is not well seen.? There are several tiny basal ganglia lacunar infarcts and periventricular white matter hypodensities.? No mass, mass effect, or midline shift. ? Skull and face:? Stable size of right posterior parietal subcutaneous hematoma.? Calvarium is intact. ? Sinuses:? Visualized sinuses and mastoids are clear.? ? IMPRESSION:? ? 1. No CT evidence of new process. ? 2. Trace amount of subdural hemorrhage and intraventricular hemorrhage as descri bed above overall slightly decreased in quantity. ? 3. Stable right posterior parietal scalp hematoma.? ? ? Dictated by: Chloé Garcia M.D. on 08/08/2022 at 22:28 ? ? Approved by: Chloé Garcia M.D. on 08/08/2022 at 22:36?? Chest x-ray: Radiologist's Impression: ine (More??) Close Chest X-Ray (Signed) Chloé Garcia - 08/08/[address] (Signed) Chloé Garcia - 08/08/[address] (Signed) Donnell Yeboah - 08/05/[address] (Signed) Donnell Yeboah - 08/05/22 Echocardiogram Ultrasound (Signed) Willis Amor - 08/03/22 Renal Ultrasound (Signed) Gigi Russo - 07/30/22 Head/Neck CTA (Addendum) Donnell Yeboah - 07/30/22 Chest X-Ray (Signed) Aravind Palm - 07/30/[address] (Signed) Saeed Newby - 07/30/[address] (Signed) Saeed Newby - 07/30/[address] (Signed) Russo,Gigi - 07/30/22 Chest/Abdomen/Pelvis CT (Signed) Russo,Gigi - 07/30/[address] (Signed) Russo,Gigi - 07/30/22 Shoulder X-Ray (Signed) Efrain,Pal - 06/08/22 Shoulder X-Ray (Signed) Efrain,Pal - 06/08/22 Lumbar Spine X-Ray (Signed) Efrain,Pal - 06/08/22 Outside EKG 03/06/22 Chest X-Ray (Signed) Call,Balta - 01/29/21 Outside DI 01/25/21 DI Result CC 01/16/21 Abdomen/Pelvis CT (Signed) Shabnam Rudolph - 08/12/18 Launch?Image [address] [address] XRay Report Signed Patient: Hadley Wilkes MR#: [id number] : 1945 Acct:[id number] Age/Sex: 77 / M Date of Service: 08/08/22 Loc: ED Accession Number: [id number] ?? Procedure: XR chest 1V Ordering Provider: Nata Palma D.O. PROCEDURE:? XR CHEST 1V ? INDICATIONS:? confusion ? TECHNIQUE:? One view of the chest was acquired.? ? COMPARISON:? [facility], , XR CHEST 1V, 07/30/2022, 12:25. ? FINDINGS:? Lordotic patient position. ? Surgical changes and devices:? Overlying monitoring wires. ? Lungs and pleura:? Lungs are clear.? No pleural effusions or pneumothorax.? ? Mediastinum:? Mediastinal contours appear normal.? Heart size is normal.? ? Bones and chest wall:? No suspicious bony lesions.? Overlying soft tissues appear unremarkable.? ? IMPRESSION:? No acute cardiopulmonary disease.? ? ? Dictated by: Chloé Garcia M.D. on 08/08/2022 at 22:47 ? ? Approved by: Chloé Garcia M.D. on 08/08/2022 at 22:47?? ECG Data Attestation: I personally reviewed and interpreted this ECG as follows: Interpretation: Accelerated junctional rhythm rate of 123 QRS is [address] changes patient had first-degree AV block on EKG from 07/30/2022. EKG #2. Sinus rhythm with first-degree AV block. Rate 85 MT 230 QRS 82 and QTC [address] changes. [facility] Narrative Medical decision making narrative: This is a 77-year-old male with recent subdural and subarachnoid hemorrhage which has been improving on scans. Patient did develop a cranial nerve 3 palsy, had CT angio was seen felt to be secondary to subtle extension of hemorrhage into the area adjacent to the cavernous sinus this was discussed with stroke Neurology in general neurology at [facility] and they agreed this seemed to be an isolated peripheral nerve palsy and not an acute stroke. Patient was not able to obtain MR here secondary to body habitus. Patient was found to have acute kidney injury and was kept for inpatient admission. Discharged his labs show persistent anemia but not worsening, creatinine has improved electrolytes are appropriate, urine is negative. Patient U tox is negative. He did have Vicodin or Bennett earlier in the day but has been quite some time. This could be contributing to his symptoms but his mentation has not improved significantly during his stay. Repeat head CT does not show any worsening bleed, case was discussed with Neurosurgery, Dr Gamboa as well as Neurology, Dr. Salcido at [facility]. Neurosurgery felt seizure was low on the differential but a possibility, neurology felt a possibility recommended objective testing form of EEG and MRI. They are not able to accept currently at [facility]. Patient's states that he was on gabapentin during his hospitalization as well IV narcotics but that these have been stopped he has not had any additional for at least several days. Patient did receive a dose of Keppra although neurosurgery did not feel that he needed to continue with this until he had objective testing. [facility] you do [facility] no beds currently. TMs capacity cast face sheet. Patient's body habitus does make it somewhat difficult to obtain MRI is this is limiting for some facilities as well as seeking facility with EEG availablility. Patient and were updated about current plan and findings. Patient and have decided they would like to return home. She feels that his mentation is clearing. He does seem improved but not normal. He does seem better able to express himself. notes that he did have some of the symptoms while he was in the hospital she feels like it might be related to his medications including his hydrocodone. We discussed that MRI and EEG are recommended and they understand this and they understand they she missed seizure activity that was persistent this can be dangerous and possibly even fatal. Patient states he has ambulated some but is very difficult to get it out of the car she does not think she can manage in asks about help desk assistant with transport home. Patient is agreeable with this as well. He isn't having any other new acute neurologic changes decision and patient and are felt capable of making this decision. They have elected to not be transferred or have further workup. Patient had some increased pain given Tylenol in order to avoid narcotics. Patient stable and transported for BLS. Discharge Plan Departure Patient Disposition: Home Clinical Impression: Altered mental status Activity Restrictions/Additional Instructions: It is recommended by Neurology that you have EEG and MRI to rule out seizure activity or other causes of your mental status changes, you have elected to return home today and not be transferred to have these performed. If you are having recurrent or uncontrolled seizures this can be dangerous and can kill you. I would recommend avoiding sedating medications such as hydrocodone. You may return at any time, please return for new changes in mental status no neurologic changes numbness weakness difficulties with speech, facial droop, new chest pain, shortness of breath, persistent vomiting or other new or concerning changes. Prescriptions: No Action naltrexone hcl 4.5 mg PO DAILY Qty: 90 3RF losartan 100 mg tablet 100 mg PO DAILY Qty: 15 0RF Rx Instructions: NO FUTURE FILLS UNTIL SEEN. PLEASE CALL TO SCHEDULE APPT. THANKS 12/21/21 + 02/04/22. ICaps AREDS2 (copper citrate) 250 mg-200 unit -12.5 mg-1 mg tablet 1 tab PO BID icosapent ethyl 1 gram capsule 2 g PO BID Praluent Pen 150 mg/mL pen injector 150 mg SUBCUT Q14D allopurinol 300 mg tablet 300 mg PO DAILY Qty: 90 3RF acetaminophen 325 mg Tablet 3 dose PO PRN PRN (Reason: pain) aspirin 81 mg Tablet,Delayed Release (Dr/Ec) 81 mg PO DAILY PreserVision AREDS-2 [phone] pi-vdvd-fu-mg Capsule 1 cap PO BID turmeric 1 tab PO DAILY hydrocodone-acetaminophen 5-325 mg Tablet 1 - 2 tab PO Q4HR PRN (Reason: Pain, Severe (7-10)) Qty: 30 0RF Eliquis 5 mg tablet 5 mg PO BID Qty: 30 0RF Rx Instructions: restart in 1-2 weeks after bruising has healed bisacodyl [Gentle Laxative (bisacodyl)] 10 mg suppository 10 mg MT DAILY PRN (Reason: constipation) Qty: 12 0RF hydrochlorothiazide 25 mg tablet 25 mg PO DAILY carvedilol 12.5 mg tablet 12.5 mg PO BID amlodipine 10 mg tablet 10 mg PO DAILY methocarbamol 500 mg tablet 500 mg PO TID Qty: 60 2RF lidocaine 5 % adhesive patch,medicated 1 patch topical DAILY Qty: 30 1RF Rx Instructions: leave on most painful area for 12 hrs (DME) Resmed Airsense 10 CPAP Qty: 1 Rx Instructions: Pressure: 10-18 cmH2O DME: [employer] Referrals: Yunior Atkinson MD [Primary Care Provider] - Stand Alone Forms: Patient Portal/API
--- NOTE | 2022-08-08 21:43 | DI.RAD.S_ITS ---
PROCEDURE: XR CHEST 1V INDICATIONS: confusion TECHNIQUE: One view of the chest was acquired. COMPARISON: [facility], CR, XR CHEST 1V, 07/30/2022, 12:25. FINDINGS: Lordotic patient position. Surgical changes and devices: Overlying monitoring wires. Lungs and pleura: Lungs are clear. No pleural effusions or pneumothorax. Mediastinum: Mediastinal contours appear normal. Heart size is normal. Bones and chest wall: No suspicious bony lesions. Overlying soft tissues appear unremarkable. IMPRESSION: No acute cardiopulmonary disease. Dictated by: Chloé Garcia M.D. on 08/08/2022 at 22:47 Approved by: Chloé Garcia M.D. on 08/08/2022 at 22:47
[2022-08-08 21:45] VITALS: BP 177/106; PULSE 123; RESP 33; O2SAT 92
[2022-08-08 21:55] LABS: Add Manual Diff / Slide Review NO; Basophils Absolute Auto 100 /uL (0-100); Basophils Percent Auto 0.7 % (0-2); Eosinophils Absolute Auto 300 /uL (0-450); Eosinophils Percent Auto 2.3 % (2-4); Hematocrit 28.9 % (41-53); Hemoglobin 9.9 g/dL (13.5-17.5); Lymphocytes Absolute Auto 1700 /uL (1100-4500); Lymphocytes Percent Auto 14.4 % (25-40); Mean Corpuscular HGB Conc 34.3 % (30-36); Mean Corpuscular Volume 101.8 fL (80-100); Monocytes Absolute Auto 1100 /uL (0-900); Monocytes Percent Auto 9.1 % (3-14); Neutrophils Absolute Auto 8800 /uL (1500-7000); Neutrophils Percent Auto 73.5 % (50-75); Platelet Count 239 X10^3/uL (150-400); Red Blood Cell Count 2.84 X10^6/uL (4.5-5.9); Red Cell Distribution Width 16.1 % (11.6-14.8); White Blood Cell Count 11.9 X10^3/uL (4.5-11.0)
[2022-08-08 21:56] LABS: INR 1.3 (0.9-1.3); Prothrombin Time 14.6 SECONDS (10.1-12.7)
[2022-08-08 21:59] LABS: PTT Partial Thromboplastin Tim 33 SECONDS (26-36)
[2022-08-08 22:00] VITALS: PULSE 118; RESP 27; O2SAT 92
[2022-08-08 22:04] LABS: Alanine Aminotransferase 42 IU/L (<50); Albumin Globulin Ratio 1.1 (1.0-2.8); Alkaline Phosphatase 78 U/L (38-126); Aspartate Aminotransferase 38 IU/L (17-59); BUN Creatinine Ratio 36.9 (6-22); Bilirubin Total 2.2 mg/dL (0.2-1.3); Blood Urea Nitrogen 24 mg/dL (9-20); Calcium 8.8 mg/dL (8.4-10.2); Carbon Dioxide 25 mmol/L (22-32); Chloride 103 mmol/L (98-107); Creatine Kinase 289 U/L (55-170); Estimated Glomerular Filt Rate > 60 mL/min (>60); Globulin 3.5 g/dL (1.7-4.1); Glucose 93 mg/dL (80-110); HEMOLYSIS < 15 (0-50); Lactate (Lactic Acid) 1.3 mmol/L (0.7-2.1); Lipase 49 U/L (23-300); Potassium 4.2 mmol/L (3.4-5.1); Sodium 137 mmol/L (137-145); Total Protein 7.5 g/dL (6.3-8.2)
[2022-08-08 22:16] LABS: NT-proBNP (BNP-Adult 18+) 143 pg/mL (<450); Troponin I < 0.012 ng/mL (0.01-0.034)
[2022-08-08 22:19] LABS: CKMB % Relative Index 2.2 % (1.5-5.0); Creatine Kinase MB 6.45 ng/mL (<2.37)
[2022-08-08 22:21] LABS: Appearance Urine UA CLEAR; Bilirubin Urine UA NEGATIVE (NEGATIVE); Color Urine UA YELLOW; Glucose Urine UA NEGATIVE (Negative); Ketones Urine UA NEGATIVE (NEGATIVE); Leukocyte Esterase Urine UA NEGATIVE (NEGATIVE); Nitrite Urine UA NEGATIVE (Negative); Occult Blood Urine UA TRACE-INTACT (Negative); Protein Urine UA NEGATIVE (Negative); Specific Gravity Urine UA 1.015 (1.000-1.035); Urobilinogen Urine UA 0.2 E.U./dL (0.2)
[2022-08-08 22:25] LABS: UR Morphine/Opiate cutoff 300 Negative (Negative); Ur Creatinine Normal (Normal); Ur Specific Gravity Normal (Normal); Urine Amphetamines Negative (Negative); Urine Barbiturates Negative (Negative); Urine Benzodiazepines Negative (Negative); Urine Cocaine Negative (Negative); Urine MDMA Negative (Negative); Urine Methadone Negative (Negative); Urine Methamphetamines Negative (Negative); Urine Oxycodone Negative (Negative); Urine Phencyclidine Negative (Negative); Urine Tetrahydrocannabinol Negative (Negative); Urine Tricyclic Antidepressant Negative (Negative); Urine pH Normal (Normal)
[2022-08-08 22:27] LABS: Bacteria Urine None Seen; Culture Indicated Urine Cult Not Indicated; RBC Urine 0-1/HPF (0-5/HPF); Squamous Epithelial Cell Urine None Seen (0-5/HPF); WBC Urine None Seen (0-5/HPF)
[2022-08-08 22:30] VITALS: PULSE 82; RESP 30; O2SAT 95
[2022-08-08] MEDS: HYDROCODONE/ACET 5/325 TABLET 2 TAB PO (22:48)
[2022-08-09] MEDS: levETIRAcetam 1,000 MG in SODIUM CHLORIDE 0.9% 100 ML 440 MG IV (01:19)
--- NOTE | 2022-08-09 02:58 | PC.NURSE ---
BOILER INSTALLER note: Attempting to transfer patient. Called the following places with the following responses: [facility]: @[phone] [address], no beds. Maybe in AM. Faxed over a facesheet. [facility]: @[phone] [address], no beds, full. Faxed over a face sheet for AM. [facility]: 0[address] no beds, super full, can't even take their own patients. No waitlist. [facility]: [phone]. Didn't give name. Said they were at capacity. Asked me to push images and fax over a demographic sheet. Did both. [facility]: [phone]. No beds. Told RN and Dr. Palma.
[2022-08-09 03:00] VITALS: BP 117/66; PULSE 70; RESP 21; O2SAT 96
[2022-08-09] MEDS: ACETAMINOPHEN 325 MG TABLET 975 MG PO (05:33)
[2022-08-09 06:23] VITALS: BP 182/74; PULSE 76; RESP 20; TEMP 36.8; O2SAT 94
== END 2022-08-09 06:15 | disposition home or self-care (01) ==
PROVIDERS: Emergency Provider Emergency Medicine; Family Provider Student in an Organized Health Care Education/Training Program; PCP Student in an Organized Health Care Education/Training Program
DX: R41.82 Altered mental status, unspecified (principal); Z79.899 Other long term (current) drug therapy; Z86.79 Personal history of other diseases of the circulatory system
CPT/HCPCS: 36415; 70450; 71045; 80053; 80305; 81001; 82550; 82553; 82962; 83605; 83690; 83880; 84145; 84484; 85025; 85610; 85730; 87040; 93005; 93010; 96374; 99284; J1953

== ENCOUNTER → 2022-08-23 16:29 | Outpatient (CLI) | payer MEDICARE, OTHER, SELFPAY ==
[2022-07-31 16:58] VITALS: BMI 28.7
[2022-08-23 17:18] LABS: Hematocrit 36.8 % (41-53); Hemoglobin 12.2 g/dL (13.5-17.5); Mean Corpuscular HGB Conc 33.2 % (30-36); Mean Corpuscular Hemoglobin 33.9 PG (26-34); Platelet Count 224 X10^3/uL (150-400); Red Blood Cell Count 3.61 X10^6/uL (4.5-5.9); White Blood Cell Count 9.6 X10^3/uL (4.5-11.0)
[2022-08-23 17:38] LABS: HEMOLYSIS < 15 (0-50); Iron 55 ug/dL (49-181)
[2022-08-23 17:48] LABS: Percent Iron Saturation 23 % (20-50); Total Iron Binding Capacity 236 ug/dL (261-462); Transferrin 164 mg/dL (206-381)
[2022-08-23 18:10] LABS: TSH w/ Reflex to FT4 1.57 uIU/mL (0.47-4.68)
[2022-08-23 18:17] LABS: Ferritin 155 ng/mL (18-464)
[2022-08-23 18:32] LABS: Vitamin B12 810 pg/mL (239-931)
== END ==
PROVIDERS: Family Provider Student in an Organized Health Care Education/Training Program; PCP Internal Medicine; Referring Provider Internal Medicine; Visit Provider Internal Medicine
DX: D64.9 Anemia, unspecified (principal); E53.8 Deficiency of other specified B group vitamins; E78.2 Mixed hyperlipidemia
CPT/HCPCS: 36415; 82607; 82728; 83540; 83550; 84443; 85027

== ENCOUNTER → 2022-09-19 11:47 | Outpatient (CLI) | payer MEDICARE, OTHER, SELFPAY ==
[2022-07-31 16:58] VITALS: BMI 28.7
[2022-09-19 12:49] LABS: Hematocrit 40.5 % (41-53); Hemoglobin 13.8 g/dL (13.5-17.5); Mean Corpuscular Hemoglobin 33.8 PG (26-34); Mean Corpuscular Volume 99.3 fL (80-100); Platelet Count 227 X10^3/uL (150-400); Red Blood Cell Count 4.07 X10^6/uL (4.5-5.9); Red Cell Distribution Width 14.9 % (11.6-14.8); White Blood Cell Count 9.7 X10^3/uL (4.5-11.0)
[2022-09-19 13:17] LABS: Creatine Kinase 452 U/L (55-170)
== END ==
PROVIDERS: Family Provider Student in an Organized Health Care Education/Training Program; PCP Internal Medicine; Referring Provider Internal Medicine; Visit Provider Internal Medicine
DX: D64.9 Anemia, unspecified (principal); M60.9 Myositis, unspecified
CPT/HCPCS: 36415; 82550; 85027

== ENCOUNTER → 2022-10-11 12:41 | Outpatient (CLI) | payer MEDICARE, OTHER, SELFPAY ==
[2022-07-31 16:58] VITALS: BMI 28.7
--- NOTE | 2022-10-11 12:42 | DI.CT.S_ITS ---
PROCEDURE: CT HEAD/BRAIN WO CON INDICATIONS: followup subdural hematoma TECHNIQUE: Noncontrast 4.5 mm thick angled axial sections acquired from the foramen magnum to the vertex, with coronal and sagittal reformats. For radiation dose reduction, the following was used: automated exposure control, adjustment of mA and/or kV according to patient size. COMPARISON: [facility], CT, CT HEAD/BRAIN WO CON, 07/30/2022, 0:55. [facility], CT, CT HEAD/BRAIN WO CON, 07/30/2022, 12:08. [facility], CT, CT ANGIO HEAD AND NECK, 07/30/2022, 13:20. [facility], CT, CT HEAD/BRAIN WO CON, 08/05/2022, 15:23. [facility], CT, CT HEAD/BRAIN WO CON, 08/08/2022, 21:46. FINDINGS: Image quality: Excellent. CSF spaces: Basal cisterns are patent. No extra-axial fluid collections. The ventricles are symmetric in size and shape. Brain: No intracranial bleeds or masses. There is cerebral volume loss for age, with resultant ventricular and sulcal prominence. There are periventricular and deep white matter chronic small vessel ischemic changes. There is intracranial internal carotid artery atherosclerosis. Skull and face: Calvarium and visualized facial bones appear intact, without suspicious lesions. Sinuses: Visualized sinuses and mastoids are clear. IMPRESSION: Resolved prior subdural hemorrhage. No significant intracranial abnormality can be seen. Dictated by: Donnell Yeboah M.D. on 10/11/2022 at 12:23 Approved by: Donnell Yeboah M.D. on 10/11/2022 at 12:24
== END ==
PROVIDERS: Family Provider Student in an Organized Health Care Education/Training Program; PCP Internal Medicine; Referring Provider Internal Medicine; Visit Provider Internal Medicine
DX: S06.5XAD Traumatic subdural hemorrhage with loss of consciousness status unknown, subsequent encounter
CPT/HCPCS: 70450

== ENCOUNTER 2023-01-18 10:08 | Inpatient (IN) | payer MEDICARE, OTHER, SELFPAY ==
[2022-07-31 16:58] VITALS: BMI 28.7
[2023-01-18 10:15] VITALS: BMI 37.2
[2023-01-18 10:48] VITALS: BP 143/76; PULSE 66; RESP 17; TEMP 36.6; O2SAT 95
--- NOTE | 2023-01-18 11:14 | PM.HP.1 ---
History of Present Illness History of Present Illness Date Patient Seen: 01/18/23 Time Patient Seen: 11:14 Date of Onset of Symptoms: 01/16/23 Chief complaint: GI Bleed Narrative: Melena stools. Was at [facility] for rehabilitation following a CVA and in the process of approaching discharge from a rehab perspective however began to have melena stools and decreased hemoglobin. Anticoagulation was discontinued and the patient's willingness stools resolved however the hemoglobin continued to drop in on the date of discharge today from [facility], hemoglobin was less than 8. Patient requested that he be admitted to [facility] for further assessment of GI bleed requiring endoscopy to further evaluate the patient. Patient not complaining of any fever chills nausea vomiting or diaphoresis no chest pain or palpitations no shortness of breath wheezing or cough. No abdominal pain constipation or diarrhea. Per report from physician at [facility], Dr. Doyle, melena stool has ceased. 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 His rehabilitation phase at [facility] has been completed. 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 This has been in the last couple of days. Meds Home Medications and Allergies Home Medications Medication Instructions Recorded Confirmed Type aspirin 81 mg tablet,delayed 81 mg PO DAILY 08/12/18 10/28/22 History release Resmed Airsense 10 CPAP #1 ea 04/29/19 10/28/22 History vit C 250 mg-vit E 200 unit-zinc 1 tab PO BID 10/04/20 10/28/22 History 12.5 mg-copper 1 hb-sxk-sldonf tablet (ICaps AREDS2 (copper citrate)) losartan 100 mg tablet 100 mg PO DAILY #15 tabs 02/04/22 10/28/22 Rx allopurinol 300 mg tablet 300 mg PO DAILY #90 tabs 04/03/22 10/28/22 Rx carvedilol 12.5 mg tablet 12.5 mg PO BID 05/20/22 10/28/22 History hydrochlorothiazide 25 mg tablet 25 mg PO DAILY 05/20/22 10/28/22 History acetaminophen 325 mg tablet 650 mg PO .8HR PRN pain 08/23/22 10/28/22 History tramadol 50 mg tablet 50 mg PO Q6H PRN pain #30 tabs 12/16/22 Rx Allergies Allergy/AdvReac Type Severity Reaction Status Date / Time prednisone Allergy Severe Confusion Verified 10/28/22 16:11 celecoxib [From Celebrex] Allergy Intermediate Gastrointestinal Verified 10/28/22 16:11 Upset oxycodone [From Percocet] Allergy Intermediate Nausea Verified 10/28/22 16:11 Gjziray-FLB-QbX Reductase AdvReac Severe Autoimmune Verified 10/28/22 16:11 Inhibitor myositis [Vhppjfv-Kwn-Qgy Reductase Inhibitor] codeine AdvReac Mild Redness of Verified 10/28/22 16:11 Skin icosapent ethyl AdvReac Mild Nausea Verified 10/28/22 16:11 Review of Systems Review of Systems Narrative: Fourteen system review completed and pertinent findings in the history of chief complaint. Exam Vital Signs (past 8 hours): - 01/18/23 10:48 Temperature 97.8 F Pulse Rate 66 Respiratory Rate 17 Blood Pressure 143/76 H Pulse Oximetry 95 Oxygen Flow Rate 0 Oxygen Flow Rate 0 Narrative Exam Narrative: General: Does not appear to be in acute medical distress. HEENT: Head normocephalic. Extraocular movements intact pupils equal reactive to light neck is supple. Trachea is midline. Chest/respiratory normal respiratory effort. Symmetric chest rise. Clear to auscultation. No wheezes or crackles. Cardiovascular heart sounds S1 and S2 with normal rate and rhythm. No extra sounds or murmurs. Gastrointestinal: Soft. Nontender. Nondistended abdomen. Bowel sounds normal. General obesity. Extremities: All extremities warm and well perfused. No pedal edema. Peripheral pulses equal bilaterally. Neuro: Alert. Speech using short phrases. Appears to understand everything. Has some difficulty finding words but expresses well. Cranial nerves grossly intact. Normal tone. Deep tendon reflexes equal bilaterally. Toes downgoing bilaterally. Sensation to touch intact in all dermatomes strength with decrease in right hide puller strength and some decrease in left hide puller strength in some general decreased strength symmetrically in the lower extremities Psych: No acute. No acute depression. Skin: No lesions or rashes. Assessment & Plan Assessment & Plan narrative: 1. Post CVA with completion of rehabilitation at [facility]. 2. Melena stool in the last couple of days that has apparently stopped however has decreasing hemoglobin. Follow hemoglobin and consult General surgery for endoscopy and colonoscopy. Discussed with Dr. Malik Ulloa. Prep will start this evening. Expectation is that the procedure will be done tomorrow. Patient has no recollection of having a colonoscopy previously. 3. History of paroxysmal atrial fibrillation 4. History of coronary artery disease 5. General obesity 6. Hypertension 7. Hyperlipidemia 8. Peripheral arterial disease 9. Degenerative joint disease 10. Obstructive sleep apnea 11. History of subdural hematoma and multiple falls 12. Recent Watchman LAAO with complication of CVA. Code status: Full code DVT prophylaxis: Held due to recent melena Surrogate decisionmaker: Patient's Expected length of stay: Not more than 2 midnights. 75 minutes spent on admission of the patient with greater than 50% of the time spent on counseling and coordination of care. Information from the discharging physician from [facility] rehab and discussion with Dr. Ulloa general surgeon at [facility] and the patient's . COVID-19 COVID-19 status: Not tested Quality MIPS - Admit I confirm the patient?s Advance Care Plan is present, Code status is documented, Surrogate decision maker is in patient?s record [If Yes, STOP here]: Yes MIPS - Meds 'Current medications' to include all prescriptions, bocp-ycp-pcfgmee products, herbals, cannabis/cannabidiol products, and vitamin/mineral/dietary (nutritional) supplements. I have utilized all available resources to obtain, update, or review the patient?s current medications. [If Yes, STOP here]: Yes
[2023-01-18 11:53] LABS: Add Manual Diff / Slide Review NO; Basophils Absolute Auto 100 /uL (0-100); Basophils Percent Auto 0.6 % (0-2); Eosinophils Absolute Auto 300 /uL (0-450); Eosinophils Percent Auto 2.6 % (2-4); Hematocrit 25.2 % (41-53); Hemoglobin 8.4 g/dL (13.5-17.5); Lymphocytes Absolute Auto 1600 /uL (1100-4500); Lymphocytes Percent Auto 16.4 % (25-40); Mean Corpuscular HGB Conc 33.5 % (30-36); Mean Corpuscular Hemoglobin 30.5 PG (26-34); Monocytes Absolute Auto 1000 /uL (0-900); Monocytes Percent Auto 10.2 % (3-14); Neutrophils Absolute Auto 6800 /uL (1500-7000); Neutrophils Percent Auto 70.2 % (50-75); Platelet Count 211 X10^3/uL (150-400); Red Blood Cell Count 2.77 X10^6/uL (4.5-5.9); Red Cell Distribution Width 17.5 % (11.6-14.8); White Blood Cell Count 9.7 X10^3/uL (4.5-11.0)
[2023-01-18 12:05] LABS: BUN Creatinine Ratio 41.1 (6-22); Blood Urea Nitrogen 39 mg/dL (9-20); Calcium 8.6 mg/dL (8.4-10.2); Carbon Dioxide 24 mmol/L (22-32); Chloride 111 mmol/L (98-107); Estimated Glomerular Filt Rate > 60 mL/min (>60); Glucose 114 mg/dL (80-110); HEMOLYSIS < 15 (0-50); Potassium 4.3 mmol/L (3.4-5.1); Sodium 141 mmol/L (137-145)
[2023-01-18] MEDS: SODIUM CHLORIDE 0.9% 1,000 ML 100 ML IV (13:36)
[2023-01-18 15:40] VITALS: BP 127/78; PULSE 78; RESP 17; TEMP 36.2; O2SAT 96
--- NOTE | 2023-01-18 16:42 | PC.NURSE ---
Pt direct admit from [place]. for GI Bleed Alert, oriented, HX stroke, slow to speak IVF NS infusing @ 100cc/hr via pump w/o incidence. Will begin go-lytly this evening for scope prep Resting at intervals . Call light w/in reach; bed alarm on for pt safety. Continue w/ plan of care.
[2023-01-18] MEDS: PEG3350/SOD SULF,BICARB,CL/KCL 4,000 ML SOLUTION 2000 ML PO (19:06)
[2023-01-18 20:00] VITALS: BP 140/91; PULSE 71; RESP 18; TEMP 36.4; O2SAT 98
[2023-01-18 21:05] VITALS: BP 127/78; PULSE 78
[2023-01-18] MEDS: carvediloL 12.5 MG TABLET PO (21:05)
[2023-01-18] MEDS: CHLORHEXIDINE GLUCONATE 15 ML CUP PO (21:06)
[2023-01-18] MEDS: NYSTATIN POWDER 15GM 1 APPLIC TOP (21:53)
[2023-01-19] VITALS (14 sets, daily range): BP systolic 102–143; BP diastolic 49–85; PULSE 58–76; RESP 16–18; TEMP 35.9–36.9; O2SAT 91–98; BMI 37.2
--- NOTE | 2023-01-19 | PATH_ITS ---
[facility] Accession Number: [id number] No. of containers..02 Tissue . 01 Material submitted: . PART A: gastrointestinal site - ANTRUM PART B: duodenum - DUODENUM . 01 Diagnosis: A. Antrum, Biopsy: Gastric antral mucosa with no diagnostic abnormality. No evidence of Helicobacter organisms on H/E stain. Negative for intestinal metaplasia. Negative for dysplasia or malignancy. . B. Duodenum, Biopsy: Duodenal mucosa with no diagnostic abnormality. Negative for active inflammation, features of sprue, dysplasia, or malignancy. MRV 01/27/2023 1327 Local . 01 Electronically signed: . Kimani Zimmerman MD, PhD, Pathologist NPI- [id number] . 01 Gross description: . Part A: ANTRUM: Received in formalin are 3 fragment(s) of hoyos, soft tissue measuring 0.2 x 0.2 x 0.2 cm to 0.4 x 0.4 x 0.2 cm submitted entirely in 1 cassette(s) Part B: DUODENUM: Received in formalin are 2 fragment(s) of hoyos, soft tissue measuring 0.2 x 0.2 x 0.2 cm to 0.3 x 0.3 x 0.2 cm submitted entirely in 1 cassette(s) /GRAEME 01/23/2023 0024 Local . 01 Pathologist provided ICD-10: R10.13 . 01 CPT . 119903, 306125 Specimen Comment: A courtesy copy of this report has been sent to [phone] Performed at: 01 [facility] [address] [place] [address] [address] [facility], [place], [place] [id number] MD Gigi Garcia MD Phone: [phone]
[2023-01-19] MEDS: PEG3350/SOD SULF,BICARB,CL/KCL 4,000 ML SOLUTION 2000 ML PO (06:00)
[2023-01-19] MEDS: SODIUM CHLORIDE 0.9% 1,000 ML 100 ML IV ×2 (06:01→08:40)
[2023-01-19 08:36] LABS: Add Manual Diff / Slide Review NO; Basophils Absolute Auto 200 /uL (0-100); Basophils Percent Auto 2.5 % (0-2); Eosinophils Absolute Auto 300 /uL (0-450); Eosinophils Percent Auto 3.1 % (2-4); Hematocrit 24.8 % (41-53); Hemoglobin 8.2 g/dL (13.5-17.5); Lymphocytes Absolute Auto 1100 /uL (1100-4500); Lymphocytes Percent Auto 13.7 % (25-40); Mean Corpuscular HGB Conc 32.9 % (30-36); Mean Corpuscular Hemoglobin 30.5 PG (26-34); Mean Corpuscular Volume 92.8 fL (80-100); Monocytes Absolute Auto 800 /uL (0-900); Monocytes Percent Auto 10.4 % (3-14); Neutrophils Absolute Auto 5700 /uL (1500-7000); Neutrophils Percent Auto 70.3 % (50-75); Platelet Count 181 X10^3/uL (150-400); Red Blood Cell Count 2.67 X10^6/uL (4.5-5.9); Red Cell Distribution Width 18.1 % (11.6-14.8); White Blood Cell Count 8.2 X10^3/uL (4.5-11.0)
[2023-01-19 08:46] LABS: BUN Creatinine Ratio 30.5 (6-22); Blood Urea Nitrogen 25 mg/dL (9-20); Calcium 8.4 mg/dL (8.4-10.2); Carbon Dioxide 26 mmol/L (22-32); Chloride 109 mmol/L (98-107); Estimated Glomerular Filt Rate > 60 mL/min (>60); Glucose 108 mg/dL (80-110); HEMOLYSIS < 15 (0-50); Potassium 4.3 mmol/L (3.4-5.1); Sodium 141 mmol/L (137-145)
--- NOTE | 2023-01-19 09:16 | P.PN_ITS ---
Subjective Subjective Interval history: Awaiting surgery or upper endoscopy and colonoscopy. Has done bowel prep with last of dose of GoLYTELY early this morning. Patient continues to stool and has dark stool. Needs further clearing if a colonoscopy is to be done. Exam Vital Signs (past 8 hours): - 01/19/23 04:00 01/19/23 05:18 01/19/23 08:11 Temperature 97.5 F L 97.4 F L Pulse Rate 71 75 66 Respiratory Rate 17 18 17 Blood Pressure 143/78 H 136/72 Pulse Oximetry 97 95 94 Oxygen Delivery Method CPAP Oxygen Flow Rate 0 0 Fraction of Inspired Oxygen 21 Fraction of Inspired Oxygen 21 SaO2/FiO2 Ratio 452 Oxygen Delivery Method CPAP Oxygen Flow Rate 0 Narrative Exam Narrative: General: Does not appear to be in acute medical distress. HEENT:? Head normocephalic.? Trachea is midline. Chest/respiratory normal respiratory effort.? Symmetric chest rise.? Clear to auscultation.? No wheezes or crackles. Cardiovascular heart sounds S1 and S2 with normal rate and rhythm.? No extra sounds or murmurs. Gastrointestinal:? Soft.? Nontender.? Nondistended abdomen.? Bowel sounds normal.? General obesity. Extremities:? All extremities warm and well perfused.? No pedal edema.? Peripheral pulses equal bilaterally. Neuro:? Alert.? Speech using short phrases.? Appears to understand everything.? Has some difficulty finding words but expresses well. Objective Labs 01/19/23 08:25 01/19/23 08:25 Labs: Laboratory Results - last 24 hr 01/18/23 01/18/23 01/19/23 11:30 11:30 08:25 WBC 9.7 8.2 RBC 2.77 L 2.67 L Hgb 8.4 L 8.2 L Hct 25.2 L 24.8 L MCV 91.0 92.8 MCH 30.5 30.5 MCHC 33.5 32.9 RDW 17.5 H 18.1 H Plt Count 211 181 Neut % (Auto) 70.2 70.3 Lymph % (Auto) 16.4 L 13.7 L [place] % (Auto) 10.2 10.4 Eos % (Auto) 2.6 3.1 Baso % (Auto) 0.6 2.5 H Neut # (Auto) 6800 5700 Lymph # (Auto) 1600 1100 [place] # (Auto) 1000 H 800 Eos # (Auto) 300 300 Baso # (Auto) 100 200 H Sodium 141 Potassium 4.3 Chloride 111 H Carbon Dioxide 24 BUN 39 H Creatinine 0.95 Estimated GFR > 60 BUN/Creatinine Ratio 41.1 H Glucose 114 H Calcium 8.6 01/19/23 08:25 WBC RBC Hgb Hct MCV MCH MCHC RDW Plt Count Neut % (Auto) Lymph % (Auto) [place] % (Auto) Eos % (Auto) Baso % (Auto) Neut # (Auto) Lymph # (Auto) [place] # (Auto) Eos # (Auto) Baso # (Auto) Sodium 141 Potassium 4.3 Chloride 109 H Carbon Dioxide 26 BUN 25 H Creatinine 0.82 Estimated GFR > 60 BUN/Creatinine Ratio 30.5 H Glucose 108 Calcium 8.4 PFSH Medical History Anemia Chronic anticoagulation Coronary artery disease Essential hypertension Gait instability Gout Hx of non-ST elevation myocardial infarction (NSTEMI) Kidney stones Low back pain Mixed hyperlipidemia Paroxysmal atrial fibrillation Primary osteoarthritis involving multiple joints Surgical History H/O lithotripsy Hx of appendectomy Hx of cardiac catheterization Family History Mother Renal cancer Father War operations involving destruction of aircraft due to c ollision with other aircraft, personnel, sequela 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 Post CVA with completion of rehabilitation at [facility] rehab. 2. Melena stool in the last couple of days that has apparently stopped prior to presentation to this hospital. However has decreasing hemoglobin. Further melena stools today with bowel prep. OR plan today with General surgery for endoscopy and colonoscopy.? Labeling Associate is Dr. Malik Ulloa.? Patient has no recollection of having a colonoscopy previously. 3. History of paroxysmal atrial fibrillation 4. History of coronary artery disease -maintain regular medication 5. General obesity 6. Hypertension -maintain regular medication 7. Hyperlipidemia. Not on a statin. Has adverse reactions to statins. 8. Peripheral arterial disease 9. Degenerative joint disease 10. Obstructive sleep apnea 11. History of subdural hematoma and multiple falls 12. Recent Watchman LAAO with complication of CVA. Follow patient clinically and labs post GI procedures. Code status:? Full code DVT prophylaxis:? Held due to recent melena Surrogate decisionmaker:? Patient's Time Spent With Patient Time with patient: 30 to 49 minutes with 50% spent counseling/coordinating care Quality VTE Deep Vein Thrombosis/Pulmonary Embolism Present on Admission: No
--- NOTE | 2023-01-19 09:37 | PC.NURSE ---
Addendum entered by Corazon Mosley R.N. 01/19/23 11:40: Patient had another small bowel movement. Changed and just down to procedure around 1130. Addendum entered by Corazon Mosley R.N. 01/19/23 10:13: Patient given beta abi, encouraged to drink go lytely. He is almost finished and he took med whole with water. Original Note: Assess- Patient incontinent of loose, watery brown/black stool in bed. Patient also incontinent of urine after condom cath taken off to get patient cleaned up . He is on go lytely to help prep for colonoscopy, egd today. He will be going down later today for this. He had a CVA at the beginning of the month and has weakness, and expressive aphagia. Patient has a hx of back discomfort, he was having a procedure when the cva occured earlier in the month. He is alert and oriented, tolerating his ivf well. is at bedside. Patient now has a taped brief on to help better assist with incontinent stools. He denies pain after being cleaned up, rolling side to side done with bed assist. He was thankful for care and is resting more comfortably.
[2023-01-19] MEDS: carvediloL 12.5 MG TABLET PO ×2 (10:00→21:04)
--- NOTE | 2023-01-19 11:45 | P.CONS_ITS ---
History of Present Illness Consult details Date Patient Seen: 01/19/23 Time Patient Seen: 11:45 Chief complaint: GI Bleed Narrative: Hadley Wilkes is a 77-year-old man who was sent from rehab because of melena. He was in rehab following a stroke that occurred after a Watchman procedure. He has been on Plavix up until the melena started few days ago. According to his he also had an episode of melena a few months ago that seemed to resolve on its own. He has had a colonoscopy but has been several years. His hemoglobin was 8.2 this morning. Meds Home Medications and Allergies Home Medications Medication Instructions Recorded Confirmed Type aspirin 81 mg tablet,delayed 81 mg PO DAILY 08/12/18 01/19/23 History release Resmed Airsense 10 CPAP #1 ea 04/29/19 10/28/22 History vit C 250 mg-vit E 200 unit-zinc 1 tab PO BID 10/04/20 01/19/23 History 12.5 mg-copper 1 te-aam-hgnual tablet (ICaps AREDS2 (copper citrate)) losartan 100 mg tablet 100 mg PO DAILY #15 tabs 02/04/22 01/19/23 Rx allopurinol 300 mg tablet 300 mg PO DAILY #90 tabs 04/03/22 01/19/23 Rx carvedilol 12.5 mg tablet 12.5 mg PO BID 05/20/22 01/19/23 History hydrochlorothiazide 25 mg tablet 25 mg PO DAILY 05/20/22 01/19/23 History acetaminophen 325 mg tablet 650 mg PO .8HR PRN pain 08/23/22 01/19/23 History tramadol 50 mg tablet 50 mg PO Q6H PRN pain #30 tabs 12/16/22 01/19/23 Rx Allergies Allergy/AdvReac Type Severity Reaction Status Date / Time prednisone Allergy Severe Confusion Verified 10/28/22 16:11 celecoxib [From Celebrex] Allergy Intermediate Gastrointestinal Verified 10/28/22 16:11 Upset oxycodone [From Percocet] Allergy Intermediate Nausea Verified 10/28/22 16:11 Sylmxdh-WVX-QeF Reductase AdvReac Severe Autoimmune Verified 10/28/22 16:11 Inhibitor myositis [Tmewnss-Vlf-Koe Reductase Inhibitor] codeine AdvReac Mild Redness of Verified 10/28/22 16:11 Skin icosapent ethyl AdvReac Mild Nausea Verified 10/28/22 16:11 Exam Vital Signs (past 8 hours): - 01/19/23 04:00 01/19/23 05:18 01/19/23 08:11 Temperature 97.5 F L 97.4 F L Pulse Rate 71 75 66 Respiratory Rate 17 18 17 Blood Pressure 143/78 H 136/72 Pulse Oximetry 97 95 94 Oxygen Delivery Method CPAP Oxygen Flow Rate 0 0 Fraction of Inspired Oxygen 21 Fraction of Inspired Oxygen 21 SaO2/FiO2 Ratio 452 Oxygen Delivery Method CPAP Oxygen Flow Rate 0 Narrative Exam Narrative: Aphasic Abdomen is protuberant but soft Objective Labs 01/19/23 08:25 01/19/23 08:25 Labs: Laboratory Results - last 24 hr 01/18/23 01/18/23 01/19/23 11:30 11:30 08:25 WBC 9.7 8.2 RBC 2.77 L 2.67 L Hgb 8.4 L 8.2 L Hct 25.2 L 24.8 L MCV 91.0 92.8 MCH 30.5 30.5 MCHC 33.5 32.9 RDW 17.5 H 18.1 H Plt Count 211 181 Neut % (Auto) 70.2 70.3 Lymph % (Auto) 16.4 L 13.7 L [place] % (Auto) 10.2 10.4 Eos % (Auto) 2.6 3.1 Baso % (Auto) 0.6 2.5 H Neut # (Auto) 6800 5700 Lymph # (Auto) 1600 1100 [place] # (Auto) 1000 H 800 Eos # (Auto) 300 300 Baso # (Auto) 100 200 H Sodium 141 Potassium 4.3 Chloride 111 H Carbon Dioxide 24 BUN 39 H Creatinine 0.95 Estimated GFR > 60 BUN/Creatinine Ratio 41.1 H Glucose 114 H Calcium 8.6 01/19/23 08:25 WBC RBC Hgb Hct MCV MCH MCHC RDW Plt Count Neut % (Auto) Lymph % (Auto) [place] % (Auto) Eos % (Auto) Baso % (Auto) Neut # (Auto) Lymph # (Auto) [place] # (Auto) Eos # (Auto) Baso # (Auto) Sodium 141 Potassium 4.3 Chloride 109 H Carbon Dioxide 26 BUN 25 H Creatinine 0.82 Estimated GFR > 60 BUN/Creatinine Ratio 30.5 H Glucose 108 Calcium 8.4 PFSH Medical History Anemia Chronic anticoagulation Coronary artery disease Essential hypertension Gait instability Gout Hx of non-ST elevation myocardial infarction (NSTEMI) Kidney stones Low back pain Mixed hyperlipidemia Paroxysmal atrial fibrillation Primary osteoarthritis involving multiple joints Surgical History H/O lithotripsy Hx of appendectomy Hx of cardiac catheterization Family History Mother Renal cancer Father War operations involving destruction of aircraft due to collision with other aircraft, personnel, sequela 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 He would like to proceed.
[2023-01-19] MEDS: LACTATED RINGERS 1,000 ML 42 ML IV (11:49)
--- NOTE | 2023-01-19 12:40 | PM.OP.EC ---
Operative Date/Time/Diagnoses Date of procedure: 01/19/23 Time of procedure: 12:40 Pre-op diagnosis: Melena Procedure & Clinicians Study performed: EGD and colonoscopy Same procedure as scheduled: No Surgeon: Malik Ulloa Procedure Notes Procedure in detail: Surgeon: Malik Ulloa MD Anesthesia: General endotracheal anesthesia by Johan Wakefield D.O. Procedure in detail: A timeout was performed. A bite blocked was placed and monitors were attached to the patient. The patient was positioned in a left lateral decubitus position. Sedation was administered. Once the patient was sedated the endoscope was inserted through the bite block and passed through the esophagus and stomach and into the duodenum. There was a rather large ulcer noted in the 2nd to 3rd portion of the duodenum. No active bleeding was noted. Random biopsies were taken from the duodenal mucosa.. We then withdrew the scope into the stomach. No other gross abnormalities were seen. Random biopsies were taken from the antrum. The endoscope was retroflexed and no abnormality was seen. The endoscope was straightned and withdrawn into the esophagus. No abnormality was seen. Findings: Large duodenal ulcer Next we repositioned the patient for a colonoscopy. A digital rectal exam was performed and was normal. The colonoscope was inserted however the prep was inadequate to safely complete the procedure. It is estimated that the scope was advanced proximally to the sigmoid colon when the decision was made to abort. Findings: Inadequate prep EBL: 5 mL Scope withdrawal time: N/a Post-procedure Disposition: PACU
--- NOTE | 2023-01-19 13:37 | PC.NURSE ---
post op 1315 pt to AC from PACU. alert and oriented. VSS. denies any pain or nausea. educated on clear liquid diet. water provided and pt assisted into upright position for safe intake. able to take water without difficulty. pericare provided with brief change. call light in reach.
[2023-01-19] MEDS: allopurinoL 100 MG TABLET 300 MG PO (14:41)
[2023-01-19] MEDS: hydroCHLOROthiazide 25 MG TABLET PO (14:41)
[2023-01-19] MEDS: LOSARTAN 50 MG TABLET 100 MG PO (14:41)
--- NOTE | 2023-01-19 14:45 | CM.DANOTE ---
Initial Discharge Assessment Note: Case reviewed, met with patient and then later his Valery. Introduced self and role. Payer: [facility] PCP: Dr Camacho Smith 77 year old admitted yesterday as a direct admit from [facility] inpatient acute rehab due to had melena stools and dropping H&H. On admission his Hgb was 8.4 and is 8.2 this morning. (No transfusions given). He was prepped for endoscopy/colonoscopy and returned this afternoon with his spouse Valery in attendance. When this DCP attempted to obtain a history with him earlier today, he had difficulty word-finding and was not able to give an accurate picture of his function before stroke. Spouse Valery was able to provide history: Formerly he was independent and was driving although he did have leg weakness. He apparently sustained an TN a few years ago and has been on Eliquis and then had a fall and was hoping to be off of blood thinners. He qualified for the Watchman procedure for his heart in order to get off of Eliquis. He went to [facility] in [place] for the procedure on 01/02/23 and during/after he suffered a stroke. He was transferred to [facility] inpatient acute rehab on 01/05/23 and was there until admitted here on 01/18/23. Acute rehab referred patient to [facility] rehab program for discharge plan; Valery reports that [facility] nurse did an in person informational visit while there. This DCP will notify [facility] of his admission here. PLAN: When medically cleared, discharge home to the care of his spouse and send discharge clinicals and therapy orders to [facility]. ECTOR Discharge Planning/Care Management CM Discharge Assessment Start: 01/19/23 10:56 Freq: Status: Active Protocol: Document 01/19/23 10:56 KARINA (Rec: 01/19/23 12:52 KARINA [id number]) Discharge Planning Assessment Assigned Channel Lip Wetter Jaqueline Patino RN/DCP Advance Directives? No History Provided By Patient Prior Living Arrangements House Household Members spouse Comment Waiting to speak with spouse for further history, patient having trouble with word finding. Comment Unknown Facility Name Admitted From: [facility] Willing to Return to Facility? He was to be discharged from [facility] Independent with ADL's No: patient suffered a stroke several weeks ago Is patient alert and oriented? Difficult to assess d/t word finding difficulties Comment To be determined. Caregiver for Another No Comment 9 to 14 steps at home. Although reports that he can live on main floor without the use of steps if needed. Transportation Arrangement TBD Review Status In Process Next Review Type Continued Stay Review
[2023-01-19] MEDS: PANTOPRAZOLE 40 MG VIAL IV ×2 (16:15→21:03)
[2023-01-19] MEDS: NYSTATIN POWDER 15GM 1 APPLIC TOP (21:03)
[2023-01-20] VITALS (9 sets, daily range): BP systolic 100–127; BP diastolic 52–76; PULSE 61–65; RESP 16–18; TEMP 36.3–36.9; O2SAT 92–97
[2023-01-20 06:07] LABS: BUN Creatinine Ratio 21.2 (6-22); Blood Urea Nitrogen 18 mg/dL (9-20); Calcium 8.1 mg/dL (8.4-10.2); Carbon Dioxide 26 mmol/L (22-32); Chloride 108 mmol/L (98-107); Estimated Glomerular Filt Rate > 60 mL/min (>60); Glucose 99 mg/dL (80-110); HEMOLYSIS < 15 (0-50); Potassium 3.5 mmol/L (3.4-5.1); Sodium 139 mmol/L (137-145)
[2023-01-20 06:22] LABS: Add Manual Diff / Slide Review NO; Basophils Absolute Auto 0 /uL (0-100); Basophils Percent Auto 0.5 % (0-2); Eosinophils Absolute Auto 200 /uL (0-450); Eosinophils Percent Auto 3.1 % (2-4); Hematocrit 24.7 % (41-53); Lymphocytes Absolute Auto 1500 /uL (1100-4500); Mean Corpuscular HGB Conc 32.6 % (30-36); Mean Corpuscular Hemoglobin 29.9 PG (26-34); Mean Corpuscular Volume 91.6 fL (80-100); Monocytes Absolute Auto 800 /uL (0-900); Monocytes Percent Auto 10.8 % (3-14); Neutrophils Absolute Auto 4900 /uL (1500-7000); Neutrophils Percent Auto 65.6 % (50-75); Platelet Count 175 X10^3/uL (150-400); Red Blood Cell Count 2.69 X10^6/uL (4.5-5.9); Red Cell Distribution Width 17.9 % (11.6-14.8); White Blood Cell Count 7.5 X10^3/uL (4.5-11.0)
--- NOTE | 2023-01-20 08:20 | PM.PN.1 ---
Subjective Subjective Interval history: Feeling good. No abdominal pain. No new complaints. Exam Vital Signs (past 8 hours): - 01/20/23 00:29 01/20/23 03:55 Temperature 97.3 F L 97.6 F Pulse Rate 64 65 Respiratory Rate 18 16 Blood Pressure 120/61 106/52 L Pulse Oximetry 92 93 Oxygen Flow Rate 0 0 Fraction of Inspired Oxygen 21 SaO2/FiO2 Ratio 452 Oxygen Delivery Method Room Air,CPAP Oxygen Flow Rate 0 Narrative Exam Narrative: General: Does not appear to be in acute medical distress. Just waking up. Wearing CPAP. HEENT:? Head normocephalic.? Trachea is midline. Chest/respiratory normal respiratory effort.? Symmetric chest rise.? Clear to auscultation.? No wheezes or crackles. Cardiovascular heart sounds S1 and S2 with normal rate and rhythm.? No extra sounds or murmurs. Gastrointestinal:? Soft.? Nontender.? Nondistended abdomen.? Bowel sounds normal.? General obesity. Extremities:? All extremities warm and well perfused.? No pedal edema.? Peripheral pulses equal bilaterally. Neuro:? Alert. Appears to understand everything.? Has some difficulty finding words but expresses well. Objective Labs 01/20/23 05:20 01/20/23 05:20 Labs: Laboratory Results - last 24 hr 01/19/23 01/19/23 01/20/23 08:25 08:25 05:20 WBC 8.2 7.5 RBC 2.67 L 2.69 L Hgb 8.2 L 8.0 L Hct 24.8 L 24.7 L MCV 92.8 91.6 MCH 30.5 29.9 MCHC 32.9 32.6 RDW 18.1 H 17.9 H Plt Count 181 175 Neut % (Auto) 70.3 65.6 Lymph % (Auto) 13.7 L 20.0 L [place] % (Auto) 10.4 10.8 Eos % (Auto) 3.1 3.1 Baso % (Auto) 2.5 H 0.5 Neut # (Auto) 5700 4900 Lymph # (Auto) 1100 1500 [place] # (Auto) 800 800 Eos # (Auto) 300 200 Baso # (Auto) 200 H 0 Sodium 141 Potassium 4.3 Chloride 109 H Carbon Dioxide 26 BUN 25 H Creatinine 0.82 Estimated GFR > 60 BUN/Creatinine Ratio 30.5 H Glucose 108 Calcium 8.4 01/20/23 05:20 WBC RBC Hgb Hct MCV MCH MCHC RDW Plt Count Neut % (Auto) Lymph % (Auto) [place] % (Auto) Eos % (Auto) Baso % (Auto) Neut # (Auto) Lymph # (Auto) [place] # (Auto) Eos # (Auto) Baso # (Auto) Sodium 139 Potassium 3.5 Chloride 108 H Carbon Dioxide 26 BUN 18 Creatinine 0.85 Estimated GFR > 60 BUN/Creatinine Ratio 21.2 Glucose 99 Calcium 8.1 L PFSH Medical History Anemia Chronic anticoagulation Coronary artery disease Essential hypertension Gait instability Gout Hx of non-ST elevation myocardial infarction (NSTEMI) Kidney stones Low back pain Mixed hyperlipidemia Paroxysmal atrial fibrillation Primary osteoarthritis involving multiple joints Surgical History H/O lithotripsy Hx of appendectomy Hx of cardiac catheterization Family History Mother Renal cancer Father War operations involving destruction of aircraft due to collision with other aircraft, personnel, sequela Social History details: (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 Post CVA with completion of rehabilitation at [facility] rehab. 2. Melena stool in the couple of days prior to presentation to this hospital with decreasing hemoglobin.? Further melena stools today with bowel prep yesterday.? Loan Review Officer is Dr. Malik Ulloa and upper endoscopy was noted with a duodenal ulcer however colonoscopy unable to be completed due to lack of adequate bowel prep.??For treatment of the duodenal ulcer a H pylori biopsy was taken during the endoscopy and a breath test for H pylori has been obtained prior to initiation of IV pantoprazole. Can evaluate these results for treatment of H pylori if necessary. For now, continue IV H pylori for 72 hours then transitioned to oral 40 mg b.i.d. 3. History of paroxysmal atrial fibrillation -continue carvedilol. Due to frequent fall history with history of subdural hematoma the patient has only been on low-dose aspirin for coagulation prophylaxis in relation to atrial fibrillation. With taking regular pantoprazole orally once IV is completed it would be reasonable to continue the low-dose aspirin at that time. 4. History of coronary artery disease -maintain regular medication 5. General obesity 6. Hypertension -maintain regular medication 7. Hyperlipidemia.? Not on a statin.? Has adverse reactions to statins. 8. Peripheral arterial disease 9. Degenerative joint disease 10. Obstructive sleep apnea 11. History of subdural hematoma and multiple falls 12. Recent Watchman LAAO with complication of CVA. Follow patient clinically and labs Time Spent With Patient Time with patient: 30 to 49 minutes with 50% spent counseling/coordinating care Quality VTE Deep Vein Thrombosis/Pulmonary Embolism Present on Admission: No
--- NOTE | 2023-01-20 08:59 | PC.NURSE ---
Addendum entered by Corazon Mosley R.N. 01/20/23 15:08: Patient up to [facility] with 2 person max assist. He moved well and was able to have a small lose stool. Brown in color. Addendum entered by Corazon Mosley R.N. 01/20/23 12:46: Patient worked with physical therapy and ot. He is up in the chair. Just reclined back. Denies pain. Possible d/c tomorrow per . Ate some lunch and is comfortable. Original Note: Patient is awake and seems to be feeling better. Hx of CVA at beginning of the month. He is alert and oriented but has expressive aphagia so its hard for him to verbalize what he wants to say. O bleeding noted at this time and no bm.
[2023-01-20] MEDS: hydroCHLOROthiazide 25 MG TABLET PO (09:44)
[2023-01-20] MEDS: NYSTATIN POWDER 15GM 1 APPLIC TOP ×2 (09:45→21:01)
[2023-01-20] MEDS: allopurinoL 100 MG TABLET 300 MG PO (09:46)
[2023-01-20] MEDS: LOSARTAN 50 MG TABLET 100 MG PO (09:47)
[2023-01-20] MEDS: carvediloL 12.5 MG TABLET PO (09:47)
[2023-01-20] MEDS: PANTOPRAZOLE 40 MG VIAL IV ×2 (09:52→20:59)
[2023-01-20 10:07] LABS: Interpretation Negative (Negative)
--- NOTE | 2023-01-20 12:20 | PT.IIE ---
Current Diagnoses Melena (01/18/23) Surgery Performed Operation Date: 01/19/23 12:45 Actual Procedures p Esophagogastroduodenoscopy with biopsy - Malik Ulloa MD s Colonoscopy - Malik Ulloa MD Surgical History (Last Reviewed 01/18/23 @ 11:22 by Elizabeth Goetz MD) H/O lithotripsy Hx of appendectomy Hx of cardiac catheterization Medical History (Last Reviewed 01/18/23 @ 11:22 by Elizabeth Goetz MD) Anemia Chronic anticoagulation Coronary artery disease Essential hypertension Gait instability Gout Hx of non-ST elevation myocardial infarction (NSTEMI) Kidney stones Low back pain Mixed hyperlipidemia Paroxysmal atrial fibrillation Primary osteoarthritis involving multiple joints Physical Therapy Inpatient Evaluation/Re-Eval M1 PT/OT-IP Prior Functional Status Start: 01/20/23 11:19 Freq: NEEDED Status: Active Protocol: Document 01/20/23 12:20 (Rec: 01/20/23 12:43 [id number]) Medical Review Prior Functional Status Medical History Reviewed Yes Mobility and Gait Using 2 canes around house, 4WW, stair lift, and lift recliner. Activities of Daily Living and IADL's assists w/ higher level ADLs. neighbor is able to assist w/ transfer into home. Prior Functional Level (Other details) was walking halls at inpatient rehab w/walker. Social History Household Members spouse Living Arrangements House Number of Floors (Floors) Two Floors Number of Stairs To Enter/Railing? 1/2 steps to enter home w/rail and grab bars. 14 steps w/ R rail once inside to second floor. stair lift to get upstairs. Upstairs bathroom high toilet shower chair w/ cushions. Has a lift recliner. just got a new adjustable bed . first floor has high toilet and walk in shower. Home Environment High Toilet,Walk in Shower,Tub /Shower Home Equipment Front Wheel Walker,Four Wheel Walker,Straight Cane,Lift Recliner Employment Status Retired M2 PT-IP Current Condition Start: 01/20/23 11:19 Freq: NEEDED Status: Active Protocol: Document 01/20/23 12:20 (Rec: 01/20/23 12:43 [id number]) Physical Therapy Current Condition Current Condition Evaluation Date 01/20/23 Treatment Diagnosis GI bleed, recent CVA, expressive aphasia, impaired mobility M3 PT-IP Subjective Start: 01/20/23 11:19 Freq: NEEDED Status: Active Protocol: Document 01/20/23 12:20 (Rec: 01/20/23 12:43 [id number]) Subjective Physical Therapy Visit Type Type Initial Evaluation Visit Start Time 11:50 Visit Stop Time 12:20 Total Visit Minutes 30 Number of PETROLEUM GEOLOGIST Visits 0 Physical Therapy Visit Comments Patient Comments Pt was seated in bed when encountered by PT. was present in room. M4 PT-IP Mobility and Gait Start: 01/20/23 11:19 Freq: NEEDED Status: Active Protocol: Document 01/20/23 12:20 (Rec: 01/20/23 12:43 [id number]) PT-Bed Mobility Assessment Supine to Sit Supine to Sit Maximum Assistance,2 Person Assistance,Head of Bed Elevated Scooting Scooting to Edge of Bed Maximum Assistance PT-Transfer Assessment Sit to and From Stand Sit to and from Stand Maximum Assistance,2 Person Assistance Equipment Transfer Assistive Device Bed Rail,Gait Belt,Front Wheeled Walker Transfers Transfer Destination Chair Transfer Technique Stand Step Pivot Transfer Ability Level of Assist Maximum Assistance,2 Person Assistance Comments Mobility Comments Pt had difficulty getting to EOB. Pt was able to get to EOB w/PT assistance and assitance. He has arthritis in L shoulder. Standing from lower surface was 2 person max assist. Higher surface 1 person max assist. Gait Assessment Gait Gait Assistance Required: Maximum Assistance Distance (Feet) 3 Assistive Devices Assistive Device Gait Belt,Front Wheeled Walker Gait Deviations General Gait Pattern Decreased Stride Length, Decreased Feet Clearance, Flexed Trunk Factors Limiting Gait Function Factors Limiting Gait Function Decreased Activity Tolerance, Decreased Strength, Incoordination,Pain,Poor Balance Comments Gait Comments Has arthritis in shoulder that makes using the walker difficult M5 PT-IP Objective Assessments Start: 01/20/23 11:19 Freq: NEEDED Status: Active Protocol: Document 01/20/23 12:20 (Rec: 01/20/23 12:43 [id number]) Orientation Orientation/Cognition Level of Alertness Confusional State Language Function Ability Expressive Aphasia Comments pts is present to help. Pt was unable to communicate any informatin upon encounter w/ PT. He had some slurred speech and difficulty finding words. Gross Range of Motion Lower Extremity ROM Assessment Within Functional Limits Strength Lower Extremity Strength Assessment Bilaterally Impaired Hip L 3+/5 R3+/5 Knee L 4-/5 R3+/5 Ankle L5/5 R 5/5 Comments Strength Comments pt was weak in LEs Sensation Assessment Sensation Gross Sensation WNL M7 PT-IP Assessment and Plan Start: 01/20/23 11:19 Freq: NEEDED Status: Active Protocol: Document 01/20/23 12:20 (Rec: 01/20/23 12:43 [id number]) PT Summary Assessment and Plan Potential Rehabilitation Potential Good Status of Condition at Evaluation Evolving Summary Impairments Pain,ROM,Strength,Balance, Coordination,Cognition,Bed Mobility,Transfers,Gait, Activity Tolerance Assessment Summary Pt's was present throughout the visit. Back in July pt fell and suffered a subdural hematoma. Pt had home health following hospital stay. Prior to current hospital stay pt had Watchman procedure (01/02) at [facility] in [place], during or immediately following procedure he had a CVA. After CVA, pt spent 2 weeks in inpatient rehab. Pt has been using 2 canes when walking around home. He has a lift chair at home and has difficulty getting up and down from lower surfaces. Getting to the EOB required PT max assist and assistance from . Standing w/FWW required max assist w/PT and bed elevated. pt was able to walk w/ walker 3 ft to chair, no cushions were placed prior to pt sitting. once sitting chair was too low for pt to stand. He has a recliner lift at home that pt uses regularly. 2 person max assist was done so could slide cushions under pt. Once elevated he had a much easier time standing. Pt was slightly frustrated w/ inability to find the right words. He did note pain in L shoulder due to arthritis. Pts notes that once home the neighbor is able to help w/ transfers into the home where it is set up for him. At this time PT recommends SNF, but pt is likely to refuse SNF. In that case PT recommends discharge to home with assistance and home health due to pt decreased strength, balance, coordination, and increased fall risk. Goals Bed Mobility Goal Minimal Assistance with HOB elevated Transfer Goal Minimal Assistance,Front Wheeled Walker,Four Wheeled Walker Gait Goal Minimal Assistance,Front Wheel Walker,Four Wheel Walker Gait Distance 50 ft Other Goals be able to transfer from elevated bed to chair w/2 cushions w/ minimal assistance. Frequency of Treatment Frequency Of Treatment Once a Day Treatment Plan Physical Therapy Treatment Plan Bed Mobility Training,Transfer Training,Gait Training, Therapeutic Exercise,Balance Retraining,Discharge Planning, Neuromuscular Re-ed, Coordination Retraining Recommendations To Nursing Amount of Assist Needed 2 Person Assist Discharge Recommendations PT Discharge Recommendations Home with Assistance,Home Health,SNF Rehab Transportation Needs at Discharge Private Vehicle Treatment was provided by Vanda Zavaleta, CURTIS and supervised by Shirley Roberson, PT, DPT. I personally reviewed this note and agree with its contents.
--- NOTE | 2023-01-20 12:30 | OT.IPNOTE ---
Ot eval and treat order received and chart reviewed. Attempted to see pt. Pt's present. Both pt and feel that pt is at his previous baseline prior to his admit here and he is ready to go home. They kindly declined an OT eval. Will discharge OT eval order.
--- NOTE | 2023-01-20 14:25 | CM.DPC ---
DCP Continued: INSPECTOR SHELLS reviewed EMR. Per provider in rounds, patient likely to be here three days or so and go home with HH. Provider approved PT/OT order. INSPECTOR SHELLS placed verbal read back order for PT/OT. From nursing staff, patient family is eager to d/c home. Nursing staff worried due to patient being max assist at this time. INSPECTOR SHELLS entered room and introduced self and role. Patient was sitting up in chair and appeared sleepy but A/Ox4. Patient reported the plan is still home with [facility] for nursing/PT/OT. Patient reports no other needs to this team. Plan: d/c home when medically stable with [facility] and supportive family. CM team will continue to follow closely. AMY Noriega
[2023-01-20] MEDS: SODIUM CHLORIDE 0.9% FLUSH 10 ML IV (20:59)
--- NOTE | 2023-01-20 21:59 | PC.NURSE ---
Patient appears to be alert and oriented but has expressive aphasia so unable to assess appropriately; seems frustrated with inability to communicate effectively. Breath sounds CTA with RA sat of 97%; uses CPAP for sleep. HRR but soft at 100/56 so Carvedilol held. Denies nausea. BT present and abdomen is soft; day RN reported he had a small loose stool on previous shift. Has condom catheter in place and urine is clear, jamarcus. Is being assisted to reposition q2h although is able to assist. Was up in recliner at shift change and assisted back into bed with walker and 3 assist; needed the extra assist to get up out of chair but once standing he did well with taking steps to the bed. Has decreased ROM in right shoulder as reports he is needing surgery in the future; patient denies pain. Nystatin applied to bilateral groins but no excoriation/redness noted. Fall risk score is high and bed alarm is activated. rooming in.
[2023-01-21 03:00] VITALS: BP 131/74; PULSE 58; RESP 15; TEMP 36.8; O2SAT 94
[2023-01-21 07:00] VITALS: BP 109/48; PULSE 70; RESP 16; TEMP 36.4; O2SAT 96
[2023-01-21 07:50] LABS: Hematocrit 23.7 % (41-53); Hemoglobin 7.9 g/dL (13.5-17.5)
[2023-01-21 08:18] VITALS: BP 160/64; PULSE 66
[2023-01-21] MEDS: hydroCHLOROthiazide 25 MG TABLET PO (08:18)
[2023-01-21] MEDS: PANTOPRAZOLE 40 MG VIAL IV (08:18)
[2023-01-21] MEDS: LOSARTAN 50 MG TABLET 100 MG PO (08:18)
[2023-01-21 08:19] VITALS: BP 140/64; PULSE 66
[2023-01-21] MEDS: carvediloL 12.5 MG TABLET PO (08:19)
[2023-01-21] MEDS: allopurinoL 100 MG TABLET 300 MG PO (08:20)
[2023-01-21] MEDS: NYSTATIN POWDER 15GM 1 APPLIC TOP (08:20)
[2023-01-21] MEDS: SODIUM CHLORIDE 0.9% FLUSH 10 ML IV (08:20)
--- NOTE | 2023-01-21 10:50 | PT.IPTN ---
Current Diagnoses Melena (01/18/23) Surgery Performed Operation Date: 01/19/23 12:45 Actual Procedures p Esophagogastroduodenoscopy with biopsy - Malik Ulloa MD s Colonoscopy - Malik Ulloa MD Physical Therapy Treatment Note M2 PT-IP Current Condition Start: 01/20/23 11:19 Freq: NEEDED Status: Active Protocol: Document 01/20/23 12:20 (Rec: 01/20/23 12:43 [id number]) Physical Therapy Current Condition Current Condition Evaluation Date 01/20/23 Treatment Diagnosis GI bleed, recent CVA, expressive aphasia, impaired mobility M3 PT-IP Subjective Start: 01/20/23 11:19 Freq: NEEDED Status: Active Protocol: Document 01/21/23 11:31 TS (Rec: 01/21/23 11:55 TS [id number]) Subjective Physical Therapy Visit Type Type Treatment Note Visit Start Time 10:50 Visit Stop Time 11:25 Total Visit Minutes 35 Number of FIREWOR[employer]SEM[employer] SUPERVISOR Visits 1 Physical Therapy Visit Comments Patient Comments Pt found resting in bed, has some frustration with word finding difficulties, spouse assists with answering questions, pt reports pain in R shoulder, agreeable to PT. M4 PT-IP Mobility and Gait Start: 01/20/23 11:19 Freq: NEEDED Status: Active Protocol: Document 01/21/23 11:31 TS (Rec: 01/21/23 11:55 TS [id number]) PT-Bed Mobility Assessment Supine to Sit Supine to Sit Maximum Assistance,1 Person Assistance,Head of Bed Elevated Scooting Scooting to Edge of Bed Contact Guard Assistance Scooting Up and Down in Bed Standby Assistance PT-Transfer Assessment Sit to and From Stand Sit to and from Stand Maximum Assistance,1 Person Assistance Equipment Transfer Assistive Device Bed Rail,Gait Belt,Front Wheeled Walker Comments Mobility Comments Supine to sit HOB elevated 45D MaxA with handheld assist into sitting. Pt scooted to EOB CGA, having some difficulty but did not require assist. He performed sit to stand MaxA x1 from elevated bed with RUE on FWW and LUE pushing from bed, pt uses momentum to stand. Pt ambulated in room CGA ~60' with FWW and step thru gait, has no buckling or LOB. Pt performed step x1 ModA on step stool with use of grab bar on LUE and RUE pushing from FWW, pt hesitant to step due to setup. Sit to supine ModA for LEs into bed. Pt was left back in bed, with call light nearby, bed alarm on, spouse in room. Gait Assessment Gait Gait Assistance Required: Contact Guard Assist Distance (Feet) 60 Assistive Devices Assistive Device Gait Belt,Front Wheeled Walker Gait Deviations General Gait Pattern Decreased Stride Length, Decreased Feet Clearance, Flexed Trunk Factors Limiting Gait Function Factors Limiting Gait Function Decreased Activity Tolerance, Decreased Strength, Incoordination,Pain,Poor Balance Comments Gait Comments Pt was CGA with FWW for ~60', demonstrated BUE support on FWW with ambulation. See mobility comments. Stair Climbing Assessment Evaluation Level of Assist On Stairs Moderate Assistance,1 Person Assistance Devices Stair Climbing Assistive Devices Left Railing,Right Railing Technique/Endurance Stair Climbing Direction Ascend and Descend Stair Climbing Technique Step to Step Number of Steps Climbed 1 Comments Stair Climbing Comments See mobility comments. PT-Balance Assessment Sitting Balance and Reactions Static Sitting Balance Ability Good Dynamic Sitting Balance Ability Fair Standing Balance and Reactions Static Standing Balance Ability Good Dynamic Standing Balance Ability Fair M5 PT-IP Objective Assessments Start: 01/20/23 11:19 Freq: NEEDED Status: Active Protocol: Document 01/20/23 12:20 JH (Rec: 01/20/23 12:43 [id number]) Orientation Orientation/Cognition Level of Alertness Confusional State Language Function Ability Expressive Aphasia Comments pts is present to help. Pt was unable to communicate any informatin upon encounter w/ PT. He had some slurred speech and difficulty finding words. Gross Range of Motion Lower Extremity ROM Assessment Within Functional Limits Strength Lower Extremity Strength Assessment Bilaterally Impaired Hip L 3+/5 R3+/5 Knee L 4-/5 R3+/5 Ankle L5/5 R 5/5 Comments Strength Comments pt was weak in LEs Sensation Assessment Sensation Gross Sensation WNL M7 PT-IP Assessment and Plan Start: 01/20/23 11:19 Freq: NEEDED Status: Active Protocol: Document 01/21/23 11:31 TS (Rec: 01/21/23 11:55 TS [id number]) PT Summary Assessment and Plan Potential Rehabilitation Potential Good Summary Impairments Pain,ROM,Strength,Balance, Coordination,Cognition,Bed Mobility,Transfers,Gait, Activity Tolerance Progress Towards Goals Progressing Toward Goals Assessment Summary Pt made some progress with his mobility this session. He is MaxA x1 for supine to sit with handheld assist into sitting with HOB elevated. He scooted to EOB CGA, was difficult and required extra time to perform . He is MaxA x1 with sit to stand, pt uses momentum to stand and required x2 attempts to come into standing. He progressed his gait to ~60'CGA with FWW in room, no buckling or LOB. He performed step x1 with some difficulty due to setup. PT is recommending SNF vs / assist at home with HHPT. Pt and spouse would like him to return home where they feel he will do well in his home setup. Goals Bed Mobility Goal Minimal Assistance Transfer Goal Minimal Assistance,Front Wheeled Walker,Four Wheeled Walker Gait Goal Minimal Assistance,Front Wheel Walker,Four Wheel Walker Gait Distance 50ft Other Goals be able to transfer from elevated bed to chair w/2 cushions w/ PT minimal assitance. Frequency of Treatment Frequency Of Treatment Once a Day Treatment Plan Physical Therapy Treatment Plan Bed Mobility Training,Transfer Training,Gait Training, Therapeutic Exercise,Balance Retraining,Discharge Planning, Neuromuscular Re-ed, Coordination Retraining Other Recommendations and Next Treatment Issue T-Band for bed ex of Focus BKFO, and if needed ex handouts. Bed mob, transfers and gait w/ FWW, 2 small step mgt with again in room for strength able complete just 2 of them. Recommendations To Nursing Amount of Assist Needed 2 Person Assist Discharge Recommendations PT Discharge Recommendations Home with 13/01 Assist Available,Home Health,SNF Rehab Transportation Needs at Discharge Private Vehicle
[2023-01-21 11:00] VITALS: BP 123/70; PULSE 69
[2023-01-21 14:00] LABS: Hematocrit 25.4 % (41-53); Hemoglobin 8.4 g/dL (13.5-17.5)
--- NOTE | 2023-01-21 14:19 | PM.DS.1 ---
History of Present Illness History of Present Illness Date Patient Seen: 01/21/23 Time Patient Seen: 14:19 Date of Onset of Symptoms: 01/16/23 Chief complaint: GI Bleed Narrative: Per admitting provider, Melena stools. Was at [facility] for rehabilitation following a CVA and in the process of approaching discharge from a rehab perspective however began to have melena stools and decreased hemoglobin. Anticoagulation was discontinued and the patient's willingness stools resolved however the hemoglobin continued to drop in on the date of discharge today from [facility], hemoglobin was less than 8. Patient requested that he be admitted to [facility] for further assessment of GI bleed requiring endoscopy to further evaluate the patient. Patient not complaining of any fever chills nausea vomiting or diaphoresis no chest pain or palpitations no shortness of breath wheezing or cough. No abdominal pain constipation or diarrhea. Per report from physician at [facility], Dr. Doyle, melena stool has ceased. 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 His rehabilitation phase at [facility] has been completed. Discharge Providers Provider Date of admission: 01/18/23 10:08 Discharge Date: 01/21/23 Primary care physician: Camacho Smith MD Consults: 01/18/23 11:59 Consult to Physician Routine Comment: Consulting Provider: Malik Ulloa Reason for consultation: GI bleed 01/20/23 10:33 Consult to Physical Therapy Evaluate & Treat Comment: Physician Instructions: Evaluate and Treat 01/20/23 10:34 Consult to Occupational Therapy Evaluate & Treat Comment: Physician Instructions: Evaluate and treat Discharge provider: Luis Benedict DO Summary Hospital Course Discharge Diagnosis: 1. Post CVA with completion of rehabilitation at [facility]. 2. acute blood loss anemia due to duodenal ulcer 3. History of paroxysmal atrial fibrillation 4. History of coronary artery disease 5. Obesity with BMI 37.2 6. Hypertension 7. Hyperlipidemia. 8. Peripheral arterial disease 9. Degenerative joint disease 10. Obstructive sleep apnea 11. History of subdural hematoma and multiple falls 12. Recent Watchman LAAO with complication of CVA. Hospital Course: This is an 78 year old male who presented from acute rehab after a stroke after a Watchman procedure for afib at [facility] with melena and acute blood loss anemia. H/h was initially downtrending, but eventually stabilized. He was started on IV PPI, and general surgery performed endscopy which showed a duodenal ulcer. After stabilization of his h/h, patient was tolerating a diet. After risk benefit discussion, he was discharged only on baby aspirin after a risk benefit discussion regarding bleeding risk. He should continue on PPI orally twice a day for at least 30 days, PCP follow up is recommended to continue therapy after discharge. No changes to his home medications were otherwise indicated at the time of discharge. He was subsequently discharged home with home health. Stool H. pylori was negative. Pathology was ordered by the surgeon for H. pylori, but it does not appear in the system at the time of discharge as in process so may not have been sent. Time Spent with Patient Time spent: Greater than 30 minutes Exam Vital Signs (past 8 hours): - 01/21/23 08:18 01/21/23 08:19 01/21/23 07:00 Temperature 97.6 F Pulse Rate 66 66 70 Respiratory Rate 16 Blood Pressure 160/64 H 140/64 109/48 L Pulse Oximetry 96 Oxygen Flow Rate 0 01/21/23 11:00 Temperature Pulse Rate 69 Respiratory Rate Blood Pressure 123/70 Pulse Oximetry Oxygen Flow Rate Fraction of Inspired Oxygen 21 SaO2/FiO2 Ratio 452 Oxygen Delivery Method Room Air,CPAP Oxygen Flow Rate 0 Narrative Exam Narrative: General: WDWN no acute distress HEENT:? Head normocephalic.? Trachea is midline. Chest/respiratory normal respiratory effort.? Symmetric chest rise.? Clear to auscultation.? No wheezes or crackles. Cardiovascular heart sounds S1 and S2 with normal rate and rhythm.? No extra sounds or murmurs. Gastrointestinal:? Soft.? Nontender.? Nondistended abdomen.? Bowel sounds normal.? General obesity. Extremities:? All extremities warm and well perfused.? No pedal edema.? Peripheral pulses equal bilaterally. Neuro:? Alert. Appears to understand everything.? Has some difficulty finding words but expresses well. Objective Labs 01/21/23 13:29 01/20/23 05:20 Labs: Laboratory Results - last 24 hr 01/21/23 01/21/23 07:31 13:29 Hgb 7.9 L 8.4 L Hct 23.7 L 25.4 L PFSH Medical History Anemia Chronic anticoagulation Coronary artery disease Essential hypertension Gait instability Gout Hx of non-ST elevation myocardial infarction (NSTEMI) Kidney stones Low back pain Mixed hyperlipidemia Paroxysmal atrial fibrillation Primary osteoarthritis involving multiple joints Surgical History H/O lithotripsy Hx of appendectomy Hx of cardiac catheterization Family History Mother Renal cancer Father War operations involving destruction of aircraft due to collision with other aircraft, personnel, sequela Social History details: (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 Bleeding appears to have stopped. Continue oral acid rumper / PPI (pantoprazole) for at least 1 month. Follow up with PCP as scheduled next week to review hospitalization, follow up endoscopy biopsies. Continue aspirin only. Discuss in the coming weeks with your esthetician when to resume plavix. Discharge orders & Medications Prescriptions: New pantoprazole 40 mg tablet,delayed release (DR/EC) 40 mg PO BID 30 Days Qty: 60 0RF Continued losartan 100 mg tablet 100 mg PO DAILY Qty: 15 0RF Rx Instructions: NO FUTURE FILLS UNTIL SEEN. PLEASE CALL TO SCHEDULE APPT. THANKS 12/21/21 + 02/04/22. tramadol 50 mg tablet 50 mg PO Q6H PRN (Reason: pain) Qty: 30 1RF ICaps AREDS2 (copper citrate) 250 mg-200 unit -12.5 mg-1 mg tablet 1 tab PO BID allopurinol 300 mg tablet 300 mg PO DAILY Qty: 90 3RF aspirin 81 mg Tablet,Delayed Release (Dr/Ec) 81 mg PO DAILY acetaminophen 325 mg tablet 650 mg PO .8HR PRN (Reason: pain) hydrochlorothiazide 25 mg tablet 25 mg PO DAILY carvedilol 12.5 mg tablet 12.5 mg PO BID (DME) Resmed Airsense 10 CPAP Qty: 1 Rx Instructions: Pressure: 10-18 cmH2O DME: [employer] Follow up/Referrals: Camacho Smith MD [Primary Care Provider] - Diet/Activity/Treatments Diet: Diet as Tolerated and Regular Activity: As tolerated Visit Report/Discharge Packet Instructions: Duodenal Ulcer, DI for Peptic Ulcer Stand Alone Forms: Patient Portal/API, Stroke Signs & Symptoms Discharge Data Primary Care Provider: Camacho Smith V Discharges patient from system. Discharge Date/Time: 01/21/23 14:50 Quality VTE Deep Vein Thrombosis/Pulmonary Embolism Present on Admission: No
--- NOTE | 2023-01-21 16:14 | CM.DPC ---
DCP Continued: CREDIT ADJUSTER reviewed EMR. Per provider in rounds, if patient's H&H is WNL after afternoon testing, patient will be medically cleared to d/c home. It was under this CREDIT ADJUSTER's impression that [facility] was already established with patient due to previous stay at [facility]. Patient left building prior to being seen by this CREDIT ADJUSTER today due to triaging needs. CREDIT ADJUSTER called Kandice to let her know patient was d/c. Kandice reported that they needed to start the referral process from beginning with him due to it not actually being down through [facility] [place] [facility], but there just being a warm hand off at [facility] [place] [facility]. CREDIT ADJUSTER faxed Face sheet, H&P, PT/OT notes, d/c summary, HH order and face to face to [facility]. Kandice reported her team will get started reviewing it and open as soon as they are able. Plan: patient to d/c home with family today, transport in POV. CREDIT ADJUSTER will follow with [facility] to confirm all is well with them starting services. CM team will follow closely. AMY Noriega
== END 2023-01-21 14:50 | disposition home health service (06) | DRG 378 ==
PROVIDERS: Internal Medicine; Surgery; Admitting Provider Neuromusculoskeletal Medicine, Sports Medicine; Family Provider Student in an Organized Health Care Education/Training Program; PCP Internal Medicine; Referring Provider Internal Medicine; Visit Provider Neuromusculoskeletal Medicine, Sports Medicine
PROC: 0DJ08ZZ Inspection of Upper Intestinal Tract, Via Natural or Artificial Opening Endoscopic (ICD-10-PCS; CPT 43235; principal; 2023-01-19 12:45)
PROC: 0DJD8ZZ Inspection of Lower Intestinal Tract, Via Natural or Artificial Opening Endoscopic (ICD-10-PCS; CPT 45378; 2023-01-19 12:45)
DX: K26.4 Chronic or unspecified duodenal ulcer with hemorrhage (principal); D62 Acute posthemorrhagic anemia; I48.0 Paroxysmal atrial fibrillation; I25.10 Atherosclerotic heart disease of native coronary artery without angina pectoris; I10 Essential (primary) hypertension; M10.9 Gout, unspecified; Z91.81 History of falling; Z86.73 Personal history of transient ischemic attack (TIA), and cerebral infarction without residual deficits; Z87.891 Personal history of nicotine dependence
CPT/HCPCS: 36415; 43239; 45378; 80048; 83013; 85014; 85018; 85025; 93005; 93010; 94660; 97116; 97162; 97530; 99232; C9113; J2405; J2704; J3010; J3490

== ENCOUNTER 2023-01-24 18:51 | Inpatient (IN) | payer MEDICARE, OTHER, SELFPAY ==
[2023-01-24] VITALS (15 sets, daily range): BP systolic 127–154; BP diastolic 66–90; PULSE 87–96; RESP 16–42; TEMP 37.6–38; O2SAT 89–93
--- NOTE | 2023-01-24 18:59 | ED.AMS ---
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 Was admitted to [facility] on January 18 for assessment of GI bleed requiring endoscopy. He was released from that hospital stay January 21 presents today with fever and shaking. He has some speech deficits and confusion from the CVA. Daughter and at bedside report that he had significant decreasing mental status today. He was complaining of some abdominal pain earlier and has a history of kidney stones as well. They report that he previously had a condom catheter not an indwelling catheter they deny any further bleeding. Related Data Home Medications Medication Instructions Recorded Confirmed aspirin 81 mg tablet,delayed 81 mg PO DAILY 08/12/18 01/25/23 release Resmed Airsense 10 CPAP #1 ea 04/29/19 01/25/23 vit C 250 mg-vit E 200 unit-zinc 1 tab PO BID 10/04/20 01/25/23 12.5 mg-copper 1 [id number] tablet (ICaps AREDS2 (copper citrate)) carvedilol 12.5 mg tablet 12.5 mg PO BID 05/20/22 01/25/23 hydrochlorothiazide 25 mg tablet 25 mg PO DAILY 05/20/22 01/25/23 acetaminophen 325 mg tablet 650 mg PO .8HR PRN pain 08/23/22 01/25/23 Previous Rx's Medication Instructions Recorded losartan 100 mg tablet 100 mg PO DAILY #15 tabs 02/04/22 allopurinol 300 mg tablet 300 mg PO DAILY #90 tabs 04/03/22 pantoprazole 40 mg tablet,delayed 40 mg PO BID 30 days #60 tabs 01/21/23 release Allergies Allergy/AdvReac Type Severity Reaction Status Date / Time prednisone Allergy Severe Confusion Verified 10/28/22 16:11 celecoxib [From Celebrex] Allergy Intermediate Gastrointestinal Verified 10/28/22 16:11 Upset oxycodone [From Percocet] Allergy Intermediate Nausea Verified 10/28/22 16:11 Cmoqzua-ZXG-TvH Reductase AdvReac Severe Autoimmune Verified 10/28/22 16:11 Inhibitor myositis [Cgnvfkl-Ygj-Nqz Reductase Inhibitor] codeine AdvReac Mild Redness of Verified 10/28/22 16:11 Skin icosapent ethyl AdvReac Mild Nausea Verified 10/28/22 16:11 Review of Systems Review of Systems ROS Unobtainable: All systems reviewed & are unremarkable except as noted in HPI and below Patient History Medical History Anemia Chronic anticoagulation Coronary artery disease Essential hypertension Gait instability Gout Hx of non-ST elevation myocardial infarction (NSTEMI) Kidney stones Low back pain Mixed hyperlipidemia Paroxysmal atrial fibrillation Primary osteoarthritis involving multiple joints Surgical History H/O lithotripsy Hx of appendectomy Hx of cardiac catheterization Family History Mother Renal cancer Father War operations involving destruction of aircraft due to collision with other aircraft, personnel, sequela Social History details: (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 RESPIRATORY: Breath sounds equal bilaterally, no wheezes rales or rhonchi. ABDOMEN: Soft, nontender. Normoactive bowel sounds all 4 quadrants. No guarding or rebound. : No CVA tenderness EXTREMITIES: Normal range of motion, no clubbing or edema. Neurovascularly intact NEUROLOGICAL: Alert and oriented x1 Moving extremities SKIN: Warm, dry, no laceration, no petechiae, no rashes or lesions. Course Orders Ordered: ED Orders 01/24/23 19:03 XR chest 1V Stat EKG-12 Lead Stat 01/24/23 19:10 COVID19 -Nasal RAPID Stat 01/24/23 19:30 Blood Culture Stat 01/24/23 20:13 CT abdomen pelvis w con Stat 01/24/23 20:14 Urinalysis and Microscopic Stat Urine Culture Stat 01/24/23 20:17 CT angio chest PE protocol Stat Acetaminophen (Acetaminophen 325 Mg Tablet) 650 mg PO Q6H PRN PRN Reason: Fever/Mild Pain (1-3) Last Admin: 01/25/23 02:07 Dose: 650 mg Documented By: CHEYENNE Albuterol (Albuterol 2.5 Mg/3 Ml Neb (Adult)) 2.5 mg INH [id number] PRN PRN Reason: Dyspnea Aspirin (Aspirin Ec 81 Mg Tablet) 81 mg PO DAILY RAFIQ Carvedilol (Carvedilol 12.5 Mg Tablet) 12.5 mg PO BIDWM [facility] Sodium Chloride (Normal Saline 0.9%) 1,000 mls @ 100 mls/hr IV CONT [facility] Last Admin: 01/25/23 01:52 Dose: 100 mls/hr Documented By: CHEYENNE Ceftriaxone Sodium 2,000 mg/ (Sodium Chloride) 100 mls @ 200 mls/hr IV Q24H [facility] Last Admin: 01/25/23 01:59 Dose: 200 mls/hr Documented By: [place]NE Losartan Potassium (Losartan 50 Mg Tablet) 100 mg PO DAILY [facility] Naloxone HCl (Naloxone 0.4 Mg/Ml Vial) 0.2 mg IV Q2MIN PRN PRN Reason: Opiate Reversal Ondansetron HCl (Ondansetron 4 Mg/2 Ml Inj) 4 mg IV Q8HR PRN PRN Reason: Nausea And Vomiting Pantoprazole Sodium (Pantoprazole Dr 40 Mg Tablet) 40 mg PO BID RAFIQ Sennosides (Sennosides 8.6 Mg Tablet) 17.2 mg PO BEDTIME RAFIQ Tramadol HCl (Tramadol 50 Mg Tablet) 50 mg PO Q6H PRN PRN Reason: pain Vital Signs Vital signs: Vital Signs - 8 hr 01/24/23 20:33 01/24/23 20:00 01/24/23 20:01 Temperature 99.6 F Pulse Rate 87 Respiratory Rate 32 H Blood Pressure 127/75 Pulse Oximetry 01/24/23 20:01 01/24/23 20:30 01/24/23 20:30 Temperature Pulse Rate 91 H 89 Respiratory Rate 32 H 31 H Blood Pressure 133/66 Pulse Oximetry 91 90 L 01/24/23 21:10 01/24/23 21:11 01/24/23 21:11 Temperature Pulse Rate 93 H 91 H Respiratory Rate 26 H Blood Pressure 144/85 H Pulse Oximetry 90 L 90 L 01/24/23 21:30 01/24/23 22:00 01/24/23 22:30 Temperature Pulse Rate 89 89 92 H Respiratory Rate 32 H 31 H 33 H Blood Pressure Pulse Oximetry 90 L 91 90 L 01/24/23 23:00 01/25/23 00:00 Temperature Pulse Rate 88 90 Respiratory Rate 32 H 34 H Blood Pressure Pulse Oximetry 89 L 90 L MDM - Altered Mental Status Lab Data 01/24/23 18:40 01/24/23 18:40 Labs: Lab Results 01/24/23 01/24/23 01/24/23 Range/Units 18:40 18:40 18:40 WBC 18.4 H (4.5-11.0) X10^3/uL RBC 3.03 L (4.5-5.9) X10^6/uL Hgb 8.9 L (13.5-17.5) g/dL Hct 27.4 L (41-53) % MCV 90.3 (80-100) fL MCH 29.4 (26-34) PG MCHC 32.6 (30-36) % RDW 18.1 H (11.6-14.8) % Plt Count 248 (150-400) X10^3/uL Neut % (Auto) 80.0 H (50-75) % Lymph % (Auto) 8.5 L (25-40) % Thomas % (Auto) 10.1 (3-14) % Eos % (Auto) 1.0 L (2-4) % Baso % (Auto) 0.4 (0-2) % Neut # (Auto) 64679 H (7301-0028) /uL Lymph # (Auto) 1600 (0227-8438) /uL Thomas # (Auto) 1900 H (0-900) /uL Eos # (Auto) 200 (0-450) /uL Baso # (Auto) 100 (0-100) /uL PT 14.6 H (10.1-12.7) SECONDS INR 1.3 (0.9-1.3) APTT 32 (26-36) SECONDS Sodium 138 (137-145) mmol/L Potassium 3.7 (3.4-5.1) mmol/L Chloride 104 (98-107) mmol/L Carbon Dioxide 26 (22-32) mmol/L BUN 21 H (9-20) mg/dL Creatinine 0.89 (0.66-1.25) mg/dL Estimated GFR > 60 (>60) mL/min BUN/Creatinine Ratio 23.6 H (6-22) Glucose 104 (80-110) mg/dL Lactate (0.7-2.1) mmol/L Calcium 8.9 (8.4-10.2) mg/dL Total Bilirubin 0.5 (0.2-1.3) mg/dL AST 32 (17-59) IU/L ALT 26 (<50) IU/L Alkaline Phosphatase 87 (38-126) U/L Total Creatine Kinase 240 H (55-170) U/L Troponin I < 0.012 (0.01-0.034) ng/mL NT-Pro-B Natriuret Pep (<450) pg/mL Total Protein 7.8 (6.3-8.2) g/dL Albumin 4.0 (3.5-5.0) g/dL Globulin 3.8 (1.7-4.1) g/dL Albumin/Globulin Ratio 1.1 (1.0-2.8) Procalcitonin 0.13 (<0.5) ng/mL Urine Color Urine Appearance Urine pH (4.5-8.0) Ur Specific Walling (1.000-1.035) Urine Protein (Negative) Urine Glucose (UA) (Negative) g/dL Urine Ketones (NEGATIVE) Urine Occult Blood (Negative) Urine Nitrate (Negative) Urine Bilirubin (NEGATIVE) Urine Urobilinogen (0.2) E.U./dL Ur Leukocyte Esterase (NEGATIVE) Urine RBC (0-5/HPF) Urine WBC (0-5/HPF) Ur Squamous Epith Cells (0-5/HPF) Urine Bacteria (None) Ur Culture Indicated? SARS-CoV-2 (PCR) (Negative) 01/24/23 01/24/23 01/24/23 Range/Units 18:40 18:40 19:10 WBC (4.5-11.0) X10^3/uL RBC (4.5-5.9) X10^6/uL Hgb (13.5-17.5) g/dL Hct (41-53) % MCV (80-100) fL MCH (26-34) PG MCHC (30-36) % RDW (11.6-14.8) % Plt Count (150-400) X10^3/uL Neut % (Auto) (50-75) % Lymph % (Auto) (25-40) % Thomas % (Auto) (3-14) % Eos % (Auto) (2-4) % Baso % (Auto) (0-2) % Neut # (Auto) (7044-6476) /uL Lymph # (Auto) (1552-7802) /uL Thomas # (Auto) (0-900) /uL Eos # (Auto) (0-450) /uL Baso # (Auto) (0-100) /uL PT (10.1-12.7) SECONDS INR (0.9-1.3) APTT (26-36) SECONDS Sodium (137-145) mmol/L Potassium (3.4-5.1) mmol/L Chloride (98-107) mmol/L Carbon Dioxide (22-32) mmol/L BUN (9-20) mg/dL Creatinine (0.66-1.25) mg/dL Estimated GFR (>60) mL/min BUN/Creatinine Ratio (6-22) Glucose (80-110) mg/dL Lactate 1.9 (0.7-2.1) mmol/L Calcium (8.4-10.2) mg/dL Total Bilirubin (0.2-1.3) mg/dL AST (17-59) IU/L ALT (<50) IU/L Alkaline Phosphatase (38-126) U/L Total Creatine Kinase (55-170) U/L Troponin I (0.01-0.034) ng/mL NT-Pro-B Natriuret Pep 630 H (<450) pg/mL Total Protein (6.3-8.2) g/dL Albumin (3.5-5.0) g/dL Globulin (1.7-4.1) g/dL Albumin/Globulin Ratio (1.0-2.8) Procalcitonin (<0.5) ng/mL Urine Color Urine Appearance Urine pH (4.5-8.0) Ur Specific Walling (1.000-1.035) Urine Protein (Negative) Urine Glucose (UA) (Negative) g/dL Urine Ketones (NEGATIVE) Urine Occult Blood (Negative) Urine Nitrate (Negative) Urine Bilirubin (NEGATIVE) Urine Urobilinogen (0.2) E.U./dL Ur Leukocyte Esterase (NEGATIVE) Urine RBC (0-5/HPF) Urine WBC (0-5/HPF) Ur Squamous Epith Cells (0-5/HPF) Urine Bacteria (None) Ur Culture Indicated? SARS-CoV-2 (PCR) Negative (Negative) 01/24/23 Range/Units 20:14 WBC (4.5-11.0) X10^3/uL RBC (4.5-5.9) X10^6/uL Hgb (13.5-17.5) g/dL Hct (41-53) % MCV (80-100) fL MCH (26-34) PG MCHC (30-36) % RDW (11.6-14.8) % Plt Count (150-400) X10^3/uL Neut % (Auto) (50-75) % Lymph % (Auto) (25-40) % Thomas % (Auto) (3-14) % Eos % (Auto) (2-4) % Baso % (Auto) (0-2) % Neut # (Auto) (6354-6952) /uL Lymph # (Auto) (8813-5769) /uL Thomas # (Auto) (0-900) /uL Eos # (Auto) (0-450) /uL Baso # (Auto) (0-100) /uL PT (10.1-12.7) SECONDS INR (0.9-1.3) APTT (26-36) SECONDS Sodium (137-145) mmol/L Potassium (3.4-5.1) mmol/L Chloride (98-107) mmol/L Carbon Dioxide (22-32) mmol/L BUN (9-20) mg/dL Creatinine (0.66-1.25) mg/dL Estimated GFR (>60) mL/min BUN/Creatinine Ratio (6-22) Glucose (80-110) mg/dL Lactate (0.7-2.1) mmol/L Calcium (8.4-10.2) mg/dL Total Bilirubin (0.2-1.3) mg/dL AST (17-59) IU/L ALT (<50) IU/L Alkaline Phosphatase (38-126) U/L Total Creatine Kinase (55-170) U/L Troponin I (0.01-0.034) ng/mL NT-Pro-B Natriuret Pep (<450) pg/mL Total Protein (6.3-8.2) g/dL Albumin (3.5-5.0) g/dL Globulin (1.7-4.1) g/dL Albumin/Globulin Ratio (1.0-2.8) Procalcitonin (<0.5) ng/mL Urine Color Yellow Urine Appearance Clear Urine pH 5.5 (4.5-8.0) Ur Specific Walling 1.015 (1.000-1.035) Urine Protein Trace H (Negative) Urine Glucose (UA) Negative (Negative) g/dL Urine Ketones Negative (NEGATIVE) Urine Occult Blood Trace-intact (Negative) Urine Nitrate Positive H (Negative) Urine Bilirubin Negative (NEGATIVE) Urine Urobilinogen 0.2 (0.2) E.U./dL Ur Leukocyte Esterase 1+ H (NEGATIVE) Urine RBC 0-1/hpf (0-5/HPF) Urine WBC 30-100/hpf H (0-5/HPF) Ur Squamous Epith Cells 0-1 /hpf (0-5/HPF) Urine Bacteria Many (>30) H (None) Ur Culture Indicated? Specimen cultured SARS-CoV-2 (PCR) (Negative) Urine Dip Bedside Urine Glucose Negative Bedside Urine Bilirubin - Negative Bedside Urine Ketone - Negative Urine Specific Walling 1.015 Bedside Urine Occult Blood +/- Bedside Urine pH 5.5 Bedside Urine Protein +/- 15 Bedside Urine Urobilinogen - Negative Bedside Urine Nitrite + Positive Bedside Urine Leukocytes +/- 15 Esterase Imaging Data Chest x-ray: Radiologist's Impression: PROCEDURE:? XR CHEST 1V ? INDICATIONS:? Fever, chills. ? TECHNIQUE:? One view of the chest was acquired.? ? COMPARISON:? [facility], CR, XR CHEST 1V, 08/08/2022, 21:43.? [facility], CR, XR CHEST 1V, 07/30/2022, 12:25. ? FINDINGS:? ? Surgical changes and devices:? None.? ? Lungs and pleura:? Low lung volumes.? Bibasilar atelectasis.? Possible left basilar consolidation versus atelectasis ? Mediastinum:? Mediastinal contours appear normal.? Heart size is normal.? ? Bones and chest wall:? No suspicious bony lesions.? Overlying soft tissues appear unremarkable.? ? IMPRESSION:? Left basilar consolidation versus atelectasis.? Low lung volumes. ? ? Dictated by: Mario Kelley M.D. on 01/24/2023 at 20:24 ? CT scan - abdomen/pelvis: Radiologist's Impression: PROCEDURE:? CT ABDOMEN PELVIS W CON ? INDICATIONS:? pain ? TECHNIQUE:? After the administration of IV contrast, axial sections were acquired from the lung bases to the pubic symphysis.? Coronal and sagittal reformats were performed.? For radiation dose reduction, the following was used:? automated exposure control, adjustment of mA and/or kV according to patient size. ? COMPARISON:? [facility], CT, CT ABDOMEN PELVIS W CON, 08/12/2018, 14:18. ? FINDINGS:? Image quality:? There is motion artifact as well as metallic streak artifact from patient's hip prostheses limiting evaluation.? ? Lung bases:? Dependent atelectasis demonstrated bilaterally.? ? Heart:? Heart is normal in size. ? ? ABDOMEN: Liver:? No mass lesion. Gallbladder:? Within normal limits without calcified gallstones.? ? Biliary ducts:? No biliary ductal dilatation.? ? Pancreas:? Unremarkable.? ? Spleen:? Normal in size.? ? Adrenal Glands:? No adrenal nodules.? ? Kidneys and Ureters:? No hydronephrosis.? There are multiple bilateral nonobstructing renal stones.? These include at least 12 stones in the right kidney with the largest measuring up to 0.5 cm and demonstrating attenuation values of approximately 900-1000 Hounsfield units.? On the left, there are at least 10 stones with the largest measuring up to 0.6 cm and demonstrating attenuation values of approximately 500-600 Hounsfield units.? The ureters are nondistended.? There is nonspecific perinephric stranding bilaterally.? A few left renal cortical cysts are noted.? There is right renal cortical thinning laterally. ? Stomach and Bowel:? Stomach, small bowel loops, and colon are normal in caliber and wall thickness.? The appendix is not discretely visualized but there are no pericecal inflammatory changes to suggest appendicitis. Peritoneum:? No abnormal intraperitoneal fluid.? No free air.? ? Ventral Wall: ? No hernia.? Abdominal Nodes:? No retroperitoneal or mesenteric adenopathy by size criteria.? Vessels:? Aorta and inferior vena cava are normal in size.? ? PELVIS: Pelvic Organs:? Unremarkable.? ? Bladder:? Unremarkable.? ? Pelvic Nodes: No enlarged lymph nodes.? Miscellaneous:? There are small bilateral fat-containing inguinal hernias. ? Bones:? Bilateral hip prostheses are partially visualized with associated metallic streak artifact.? Visualized osseous structures demonstrate no suspicious focal lesions. ? IMPRESSION:? ? 1.? Bilateral nephrolithiasis without obstructive uropathy. ? 2. No definite acute intra-abdominal abnormality.? ? ? Dictated by: Gigi Russo M.D. on 01/24/2023 at 22:31 ?? CT scan - chest: Radiologist's Impression: PROCEDURE:? CT ANGIO CHEST PE PROTOCOL ? INDICATIONS:? hypoxia and recent hospitalization ? TECHNIQUE:? After the administration of intravenous contrast, 2 mm thick sections acquired from the pulmonary apices to the posterior costophrenic angles.? 3-dimensional maximum intensity projection (MIP) coronal and sagittal reformats were then acquired through the thorax.? For radiation dose reduction, the following was used:? automated exposure control, adjustment of mA and/or kV according to patient size.? ? COMPARISON:? None. ? FINDINGS:? Image quality:? Evaluation is limited by motion artifact as well as beam hardening artifact from patient's right upper extremity.? ? Pulmonary arteries:? Pulmonary arteries demonstrate no intraluminal filling defects to suggest central pulmonary embolism.? Evaluation of distal subsegmental pulmonary arteries is limited by motion artifact.? ? Lower Neck: No lymphadenopathy by size criteria. Thyroid:? Visualized thyroid demonstrates no discrete nodules. Axillae: No lymphadenopathy by size criteria. Chest Wall:? Unremarkable.? Bones: Visualized osseous structures demonstrate no suspicious lesions. ? Lungs and Airways:? No acute consolidation.? There is dependent atelectasis and scarring bilaterally.? The trachea and central airways are patent. Pleura: No pneumothorax or pleural effusions.? ? Heart: Heart size is normal.? No pericardial effusion. Thoracic Vessels: The thoracic aorta is normal in size.? Mediastinum and Alanna: No lymphadenopathy by size criteria. Esophagus: No wall thickening. No hiatal hernia. ? Abdomen:? Visualized upper abdomen demonstrates 2 small nonobstructing right renal stones measuring up to 0.4 cm. ? IMPRESSION:? ? 1. No evidence of central pulmonary embolism. ? 2. No acute airspace consolidation. ? ? Dictated by: Gigi Russo M.D. on 01/24/2023 at 22:02 ? ? MDM Narrative Medical decision making narrative: Patient is a 78-year-old male who has had complicated recent past medical history including CVA presents today with confusion. He is febrile found to have UTI with nitrates and leukocytes in his urine. He has leukocytosis of 18, lactate 1.9, procalcitonin 0.13. He is hypotensive mildly tachycardic given IV fluids a dose of Rocephin. Nursing noted that he is hypoxic requiring 1-[address] angio does not show any pulmonary embolism BNP mildly elevated at 630 no evidence of congestive heart failure troponin is negative. Mental status improved significantly during stay. However patient will be admitted for UTI and sepsis. Dr. Howell, hospitalist accepts Discharge Plan Departure Patient Disposition: Admitted As Inpatient Clinical Impression: Acute UTI, Sepsis Admit Date/Time: 01/25/23 00:04 Admit Provider: David Man
--- NOTE | 2023-01-24 19:03 | DI.RAD.S_ITS ---
PROCEDURE: XR CHEST 1V INDICATIONS: Fever, chills. TECHNIQUE: One view of the chest was acquired. COMPARISON: [facility], CR, XR CHEST 1V, 08/08/2022, 21:43. [facility], CR, XR CHEST 1V, 07/30/2022, 12:25. FINDINGS: Surgical changes and devices: None. Lungs and pleura: Low lung volumes. Bibasilar atelectasis. Possible left basilar consolidation versus atelectasis Mediastinum: Mediastinal contours appear normal. Heart size is normal. Bones and chest wall: No suspicious bony lesions. Overlying soft tissues appear unremarkable. IMPRESSION: Left basilar consolidation versus atelectasis. Low lung volumes. Dictated by: Mario Kelley M.D. on 01/24/2023 at 20:24 Approved by: Mario Kelley M.D. on 01/24/2023 at 20:27
[2023-01-24 19:15] LABS: Add Manual Diff / Slide Review NO; Basophils Absolute Auto 100 /uL (0-100); Basophils Percent Auto 0.4 % (0-2); Eosinophils Absolute Auto 200 /uL (0-450); Hematocrit 27.4 % (41-53); Hemoglobin 8.9 g/dL (13.5-17.5); Lymphocytes Absolute Auto 1600 /uL (1100-4500); Lymphocytes Percent Auto 8.5 % (25-40); Mean Corpuscular HGB Conc 32.6 % (30-36); Mean Corpuscular Hemoglobin 29.4 PG (26-34); Mean Corpuscular Volume 90.3 fL (80-100); Monocytes Absolute Auto 1900 /uL (0-900); Monocytes Percent Auto 10.1 % (3-14); Neutrophils Absolute Auto 14700 /uL (1500-7000); Platelet Count 248 X10^3/uL (150-400); Red Blood Cell Count 3.03 X10^6/uL (4.5-5.9); Red Cell Distribution Width 18.1 % (11.6-14.8); White Blood Cell Count 18.4 X10^3/uL (4.5-11.0)
[2023-01-24 19:16] LABS: INR 1.3 (0.9-1.3); Prothrombin Time 14.6 SECONDS (10.1-12.7)
[2023-01-24 19:19] LABS: PTT Partial Thromboplastin Tim 32 SECONDS (26-36)
[2023-01-24 19:35] LABS: Alanine Aminotransferase 26 IU/L (<50); Albumin Globulin Ratio 1.1 (1.0-2.8); Alkaline Phosphatase 87 U/L (38-126); Aspartate Aminotransferase 32 IU/L (17-59); BUN Creatinine Ratio 23.6 (6-22); Bilirubin Total 0.5 mg/dL (0.2-1.3); Blood Urea Nitrogen 21 mg/dL (9-20); Calcium 8.9 mg/dL (8.4-10.2); Carbon Dioxide 26 mmol/L (22-32); Chloride 104 mmol/L (98-107); Creatine Kinase 240 U/L (55-170); Estimated Glomerular Filt Rate > 60 mL/min (>60); Globulin 3.8 g/dL (1.7-4.1); Glucose 104 mg/dL (80-110); HEMOLYSIS < 15 (0-50); Potassium 3.7 mmol/L (3.4-5.1); Sodium 138 mmol/L (137-145); Total Protein 7.8 g/dL (6.3-8.2)
[2023-01-24 19:36] LABS: Lactate (Lactic Acid) 1.9 mmol/L (0.7-2.1)
[2023-01-24 19:47] LABS: Troponin I < 0.012 ng/mL (0.01-0.034)
[2023-01-24 19:47] LABS: COVID19 -Nasal RAPID Negative (Negative)
[2023-01-24 19:52] LABS: Procalcitonin 0.13 ng/mL (<0.5)
--- NOTE | 2023-01-24 20:13 | DI.CT.S_ITS ---
PROCEDURE: CT ABDOMEN PELVIS W CON INDICATIONS: pain TECHNIQUE: After the administration of IV contrast, axial sections were acquired from the lung bases to the pubic symphysis. Coronal and sagittal reformats were performed. For radiation dose reduction, the following was used: automated exposure control, adjustment of mA and/or kV according to patient size. COMPARISON: [facility], CT, CT ABDOMEN PELVIS W CON, 08/12/2018, 14:18. FINDINGS: Image quality: There is motion artifact as well as metallic streak artifact from patient's hip prostheses limiting evaluation. Lung bases: Dependent atelectasis demonstrated bilaterally. Heart: Heart is normal in size. ABDOMEN: Liver: No mass lesion. Gallbladder: Within normal limits without calcified gallstones. Biliary ducts: No biliary ductal dilatation. Pancreas: Unremarkable. Spleen: Normal in size. Adrenal Glands: No adrenal nodules. Kidneys and Ureters: No hydronephrosis. There are multiple bilateral nonobstructing renal stones. These include at least 12 stones in the right kidney with the largest measuring up to 0.5 cm and demonstrating attenuation values of approximately 900-1000 Hounsfield units. On the left, there are at least 10 stones with the largest measuring up to 0.6 cm and demonstrating attenuation values of approximately 500-600 Hounsfield units. The ureters are nondistended. There is nonspecific perinephric stranding bilaterally. A few left renal cortical cysts are noted. There is right renal cortical thinning laterally. Stomach and Bowel: Stomach, small bowel loops, and colon are normal in caliber and wall thickness. The appendix is not discretely visualized but there are no pericecal inflammatory changes to suggest appendicitis. Peritoneum: No abnormal intraperitoneal fluid. No free air. Ventral Wall: No hernia. Abdominal Nodes: No retroperitoneal or mesenteric adenopathy by size criteria. Vessels: Aorta and inferior vena cava are normal in size. PELVIS: Pelvic Organs: Unremarkable. Bladder: Unremarkable. Pelvic Nodes: No enlarged lymph nodes. Miscellaneous: There are small bilateral fat-containing inguinal hernias. Bones: Bilateral hip prostheses are partially visualized with associated metallic streak artifact. Visualized osseous structures demonstrate no suspicious focal lesions. IMPRESSION: 1. Bilateral nephrolithiasis without obstructive uropathy. 2. No definite acute intra-abdominal abnormality. Dictated by: Gigi Russo M.D. on 01/24/2023 at 22:31 Approved by: Gigi Russo M.D. on 01/24/2023 at 22:35
--- NOTE | 2023-01-24 20:17 | DI.CT.S_ITS ---
PROCEDURE: CT ANGIO CHEST PE PROTOCOL INDICATIONS: hypoxia and recent hospitalization TECHNIQUE: After the administration of intravenous contrast, 2 mm thick sections acquired from the pulmonary apices to the posterior costophrenic angles. 3-dimensional maximum intensity projection (MIP) coronal and sagittal reformats were then acquired through the thorax. For radiation dose reduction, the following was used: automated exposure control, adjustment of mA and/or kV according to patient size. COMPARISON: None. FINDINGS: Image quality: Evaluation is limited by motion artifact as well as beam hardening artifact from patient's right upper extremity. Pulmonary arteries: Pulmonary arteries demonstrate no intraluminal filling defects to suggest central pulmonary embolism. Evaluation of distal subsegmental pulmonary arteries is limited by motion artifact. Lower Neck: No lymphadenopathy by size criteria. Thyroid: Visualized thyroid demonstrates no discrete nodules. Axillae: No lymphadenopathy by size criteria. Chest Wall: Unremarkable. Bones: Visualized osseous structures demonstrate no suspicious lesions. Lungs and Airways: No acute consolidation. There is dependent atelectasis and scarring bilaterally. The trachea and central airways are patent. Pleura: No pneumothorax or pleural effusions. Heart: Heart size is normal. No pericardial effusion. Thoracic Vessels: The thoracic aorta is normal in size. Mediastinum and Alanna: No lymphadenopathy by size criteria. Esophagus: No wall thickening. No hiatal hernia. Abdomen: Visualized upper abdomen demonstrates 2 small nonobstructing right renal stones measuring up to 0.4 cm. IMPRESSION: 1. No evidence of central pulmonary embolism. 2. No acute airspace consolidation. Dictated by: Gigi Russo M.D. on 01/24/2023 at 22:02 Approved by: Gigi Russo M.D. on 01/24/2023 at 22:05
[2023-01-24 20:25] LABS: Appearance Urine UA CLEAR; Bilirubin Urine UA NEGATIVE (NEGATIVE); Color Urine UA YELLOW; Glucose Urine UA NEGATIVE (Negative); Ketones Urine UA NEGATIVE (NEGATIVE); Leukocyte Esterase Urine UA 1+ (NEGATIVE); Nitrite Urine UA POSITIVE (Negative); Occult Blood Urine UA TRACE-INTACT (Negative); Protein Urine UA TRACE (Negative); Specific Gravity Urine UA 1.015 (1.000-1.035); Urobilinogen Urine UA 0.2 E.U./dL (0.2); pH Urine UA 5.5 (4.5-8.0)
[2023-01-24 20:37] LABS: Bacteria Urine Many (>30); Culture Indicated Urine Specimen Cultured; RBC Urine 0-1/HPF (0-5/HPF); Squamous Epithelial Cell Urine 0-1 /HPF (0-5/HPF); WBC Urine 30-100/HPF (0-5/HPF)
[2023-01-24 20:43] LABS: NT-proBNP (BNP-Adult 18+) 630 pg/mL (<450)
[2023-01-25] VITALS (13 sets, daily range): BP systolic 96–131; BP diastolic 50–77; PULSE 65–91; RESP 16–34; TEMP 36.6–38.8; O2SAT 90–96; BMI 36.6
--- NOTE | 2023-01-25 01:18 | P.HP_ITS ---
History of Present Illness History of Present Illness Chief complaint: Chills/ Fevers Narrative: 78-year-old male with history of recent CVA, recent GI bleed, GERD, hypertension, CAD, hyperlipidemia, paroxysmal atrial fibrillation, presented to the ER with generalized weakness, chills, fever and mild diffuse abdominal pain since yesterday. The patient was hospitalized on 01/18/2023 for GI bleed and had EGD showing duodenal ulcer. His Plavix was stopped and was discharged on baby aspirin. The patient had recent CVA and being in the rehab. Denies any chest pain, shortness of breath, cough, palpitations, nausea, vomiting, diarrhea or dysuria. Denies any melena or hematemesis. He still has some speech deficit and confusion from the recent CVA. in the ER he was found to have UTI with sepsis, was given ceftriaxone IV and was decided to be admitted for further management. COUNTS INCLUDE 234 BEDS AT THE [facility] Medical History Anemia Chronic anticoagulation Coronary artery disease Essential hypertension Gait instability Gout Hx of non-ST elevation myocardial infarction (NSTEMI) Kidney stones Low back pain Mixed hyperlipidemia Paroxysmal atrial fibrillation Primary osteoarthritis involving multiple joints Surgical History H/O lithotripsy Hx of appendectomy Hx of cardiac catheterization Family History Mother Renal cancer Father War operations involving destruction of aircraft due to collision with other aircraft, personnel, sequela Social History details: (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), 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 household members: spouse Smoking Status: Former smoker Meds Home Medications and Allergies Home Medications Medication Instructions Recorded Confirmed Type aspirin 81 mg tablet,delayed 81 mg PO DAILY 08/12/18 01/19/23 History release Resmed Airsense 10 CPAP #1 ea 04/29/19 01/20/23 History vit C 250 mg-vit E 200 unit-zinc 1 tab PO BID 10/04/20 01/19/23 History 12.5 mg-copper 1 [id number] tablet (ICaps AREDS2 (copper citrate)) losartan 100 mg tablet 100 mg PO DAILY #15 tabs 02/04/22 01/19/23 Rx allopurinol 300 mg tablet 300 mg PO DAILY #90 tabs 04/03/22 01/19/23 Rx carvedilol 12.5 mg tablet 12.5 mg PO BID 05/20/22 01/19/23 History hydrochlorothiazide 25 mg tablet 25 mg PO DAILY 05/20/22 01/19/23 History acetaminophen 325 mg tablet 650 mg PO .8HR PRN pain 08/23/22 01/19/23 History tramadol 50 mg tablet 50 mg PO Q6H PRN pain #30 tabs 12/16/22 01/19/23 Rx pantoprazole 40 mg tablet,delayed 40 mg PO BID 30 days #60 tabs 01/21/23 Rx release Allergies Allergy/AdvReac Type Severity Reaction Status Date / Time prednisone Allergy Severe Confusion Verified 10/28/22 16:11 celecoxib [From Celebrex] Allergy Intermediate Gastrointestinal Verified 10/28/22 16:11 Upset oxycodone [From Percocet] Allergy Intermediate Nausea Verified 10/28/22 16:11 Fitpjxw-GCQ-NuN Reductase AdvReac Severe Autoimmune Verified 10/28/22 16:11 Inhibitor myositis [Jetavqw-Fpj-Dme Reductase Inhibitor] codeine AdvReac Mild Redness of Verified 10/28/22 16:11 Skin icosapent ethyl AdvReac Mild Nausea Verified 10/28/22 16:11 Review of Systems Constitutional Constitutional: Reports as per HPI, Reports system reviewed and no additional complaints, except as documented, Reports fever(s) and Reports malaise Eyes Eyes: Reports as per HPI and Reports system reviewed and no additional complaints, except as documented ENT Ears, Nose, Mouth, and Throat: Yes as per HPI, Yes system reviewed and no additional complaints, except as documented, No dysphagia, No neck pain and No odynophagia Cardiovascular Cardiovascular: Reports system reviewed and no additional complaints, except as documented Respiratory Respiratory: Reports system reviewed and no additional complaints, except as documented Gastrointestinal Gastrointestinal: Denies as per HPI, Reports system reviewed and no additional complaints, except as documented, Denies abdominal pain, Denies belching, Denies melena, Denies bloating, Denies hematochezia, Denies change in bowel habits, Denies tenesmus, Denies change in stool character, Denies coffee ground emesis, Denies constipation, Denies cramping, Denies dysphagia, Denies excessive flatus, Denies heartburn, Denies loose stools, Denies nausea, Denies odynophagia, Denies vomiting, Denies hematemesis and Reports other Musculoskeletal Musculoskeletal: Denies as per HPI, Denies system reviewed and no additional complaints, except as documented, Denies abnormal gait, Denies back pain, Denies myalgias, Denies arthralgias, Denies joint swelling, Denies muscle cramps, Denies muscle weakness, Denies neck pain, Denies numbness and Denies radiating pain into limb Neurologic Neurologic: Denies abnormal gait, Denies confusion and Denies numbness Psychiatric Psychiatric: Denies as per HPI, Reports system reviewed and no additional complaints, except as documented, Denies abnormal sleep pattern, Denies anxiety, Denies change in appetite, Denies confusion, Denies depression and Denies auditory hallucinations Exam Vital Signs (past 8 hours): - 01/24/23 18:58 01/24/23 20:33 01/24/23 18:55 Temperature 100.4 F H 99.6 F Pulse Rate 93 H 96 H Respiratory Rate 16 Blood Pressure 138/90 Pulse Oximetry 93 Oxygen Delivery Method Room Air 01/24/23 18:56 01/24/23 18:56 01/24/23 19:00 Temperature Pulse Rate 95 H Respiratory Rate 29 H Blood Pressure 138/90 152/80 H Pulse Oximetry 90 L Oxygen Delivery Method 01/24/23 19:00 01/24/23 19:30 01/24/23 19:30 Temperature Pulse Rate 88 89 Respiratory Rate 32 H 42 H Blood Pressure 154/79 H Pulse Oximetry 90 L Oxygen Delivery Method 01/24/23 20:00 01/24/23 20:01 01/24/23 20:01 Temperature Pulse Rate 87 91 H Respiratory Rate 32 H 32 H Blood Pressure 127/75 Pulse Oximetry 91 Oxygen Delivery Method 01/24/23 20:30 01/24/23 20:30 01/24/23 21:10 Temperature Pulse Rate 89 93 H Respiratory Rate 31 H Blood Pressure 133/66 Pulse Oximetry 90 L 90 L Oxygen Delivery Method 01/24/23 21:11 01/24/23 21:11 01/24/23 21:30 Temperature Pulse Rate 91 H 89 Respiratory Rate 26 H 32 H Blood Pressure 144/85 H Pulse Oximetry 90 L 90 L Oxygen Delivery Method 01/24/23 22:00 01/24/23 22:30 01/24/23 23:00 Temperature Pulse Rate 89 92 H 88 Respiratory Rate 31 H 33 H 32 H Blood Pressure Pulse Oximetry 91 90 L 89 L Oxygen Delivery Method 01/25/23 00:00 01/25/23 00:30 Temperature Pulse Rate 90 87 Respiratory Rate 34 H 33 H Blood Pressure Pulse Oximetry 90 L 90 L Oxygen Delivery Method Oxygen Delivery Method Room Air Const General: cooperative, comfortable and well developed Orientation: alert and oriented x3 HENMT Head: normal to inspection and atraumatic Face and sinus: normal facial exam Mouth: oral mucosae normal and moist mucous membranes Throat: posterior oropharynx normal Eyes General: appearance normal, both eyes and all related structures Pupils: PERRL EOM: EOM intact bilaterally Neck Neck: normal visual inspection and full ROM Chest Chest: normal inspection of the chest Resp Effort & Inspection: normal respiratory effort and able to speak in complete sentences Auscultation: clear to auscultation bilaterally Cardio Palpation: normal PMI Rate: regular rate Rhythm: regular rhythm Heart Sounds: S1 normal and S2 normal GI Inspection: normal to inspection Palpation: soft and no hepatosplenomegaly Auscultation: normal bowel sounds Skin General: no rashes or lesions noted Neuro General: patient alert, patient awake, patient oriented x3 and no focal motor deficits Cognition: normal cognition Motor: muscle tone normal throughout Sensory Exam: no sensory deficits noted Extrem General: full ROM and no calf tenderness Psych Appearance: grossly normal Mental Status: mental status grossly normal Speech and Movement: speech and movement normal Objective Labs 01/24/23 18:40 01/24/23 18:40 Labs: Laboratory Results - last 24 hr 01/24/23 01/24/23 01/24/23 18:40 18:40 18:40 WBC 18.4 H RBC 3.03 L Hgb 8.9 L Hct 27.4 L MCV 90.3 MCH 29.4 MCHC 32.6 RDW 18.1 H Plt Count 248 Neut % (Auto) 80.0 H Lymph % (Auto) 8.5 L [place] % (Auto) 10.1 Eos % (Auto) 1.0 L Baso % (Auto) 0.4 Neut # (Auto) 55848 H Lymph # (Auto) 1600 [place] # (Auto) 1900 H Eos # (Auto) 200 Baso # (Auto) 100 PT 14.6 H INR 1.3 APTT 32 Sodium 138 Potassium 3.7 Chloride 104 Carbon Dioxide 26 BUN 21 H Creatinine 0.89 Estimated GFR > 60 BUN/Creatinine Ratio 23.6 H Glucose 104 Lactate Calcium 8.9 Total Bilirubin 0.5 AST 32 ALT 26 Alkaline Phosphatase 87 Total Creatine Kinase 240 H Troponin I < 0.012 NT-Pro-B Natriuret Pep Total Protein 7.8 Albumin 4.0 Globulin 3.8 Albumin/Globulin Ratio 1.1 Procalcitonin 0.13 Urine Color Urine Appearance Urine pH Ur Specific [place] Urine Protein Urine Glucose (UA) Urine Ketones Urine Occult Blood Urine Nitrate Urine Bilirubin Urine Urobilinogen Ur Leukocyte Esterase Urine RBC Urine WBC Ur Squamous Epith Cells Urine Bacteria Ur Culture Indicated? SARS-CoV-2 (PCR) 01/24/23 01/24/23 01/24/23 18:40 18:40 19:10 WBC RBC Hgb Hct MCV MCH MCHC RDW Plt Count Neut % (Auto) Lymph % (Auto) [place] % (Auto) Eos % (Auto) Baso % (Auto) Neut # (Auto) Lymph # (Auto) [place] # (Auto) Eos # (Auto) Baso # (Auto) PT INR APTT Sodium Potassium Chloride Carbon Dioxide BUN Creatinine Estimated GFR BUN/Creatinine Ratio Glucose Lactate 1.9 Calcium Total Bilirubin AST ALT Alkaline Phosphatase Total Creatine Kinase Troponin I NT-Pro-B Natriuret Pep 630 H Total Protein Albumin Globulin Albumin/Globulin Ratio Procalcitonin Urine Color Urine Appearance Urine pH Ur Specific [place] Urine Protein Urine Glucose (UA) Urine Ketones Urine Occult Blood Urine Nitrate Urine Bilirubin Urine Urobilinogen Ur Leukocyte Esterase Urine RBC Urine WBC Ur Squamous Epith Cells Urine Bacteria Ur Culture Indicated? SARS-CoV-2 (PCR) Negative 01/24/23 20:14 WBC RBC Hgb Hct MCV MCH MCHC RDW Plt Count Neut % (Auto) Lymph % (Auto) [place] % (Auto) Eos % (Auto) Baso % (Auto) Neut # (Auto) Lymph # (Auto) [place] # (Auto) Eos # (Auto) Baso # (Auto) PT INR APTT Sodium Potassium Chloride Carbon Dioxide BUN Creatinine Estimated GFR BUN/Creatinine Ratio Glucose Lactate Calcium Total Bilirubin AST ALT Alkaline Phosphatase Total Creatine Kinase Troponin I NT-Pro-B Natriuret Pep Total Protein Albumin Globulin Albumin/Globulin Ratio Procalcitonin Urine Color Yellow Urine Appearance Clear Urine pH 5.5 Ur Specific [place] 1.015 Urine Protein Trace H Urine Glucose (UA) Negative Urine Ketones Negative Urine Occult Blood Trace-intact Urine Nitrate Positive H Urine Bilirubin Negative Urine Urobilinogen 0.2 Ur Leukocyte Esterase 1+ H Urine RBC 0-1/hpf Urine WBC 30-100/hpf H Ur Squamous Epith Cells 0-1 /hpf Urine Bacteria Many (>30) H Ur Culture Indicated? Specimen cultured SARS-CoV-2 (PCR) Assessment & Plan Assessment and plan (1) Sepsis: Status: Acute Plan: meets the criteria for sepsis -start IV fluids -Close monitoring of vital signs (2) Acute UTI: Status: Acute Plan: -Blood culture, urine culture, -Antibiotics, ceftriaxone, -Monitor for urine retention, check post void residuals. (3) Coronary artery disease: Qualifiers: Coronary Disease-Associated Artery/Lesion type: [place] artery [place] vs. transplanted heart: [place] heart Associated angina: without angina Qualified Code(s): I25.10 - Atherosclerotic heart disease of [place] coronary artery without angina pectoris Status: Acute Plan: -restart baby aspirin, Coreg (4) Essential hypertension: Status: Acute Plan: -restart Coreg and losartan (5) Paroxysmal atrial fibrillation: Status: Acute Plan: stable. Rate controlled. His anticoagulation therapy was stopped due to recent GI bleed -restart Coreg and aspirin Time Spent With Patient Time with patient: 50 to 69 minutes with 50% spent counseling/coordinating care Quality VTE Deep Vein Thrombosis/Pulmonary Embolism Present on Admission: No MIPS - Admit I confirm the patient?s Advance Care Plan is present, Code status is documented, Surrogate decision maker is in patient?s record [If Yes, STOP here]: Yes MIPS - Meds 'Current medications' to include all prescriptions, [id number] products, herbals, cannabis/cannabidiol products, and vitamin/mineral/dietary (nutritional) supplements. I have utilized all available resources to obtain, update, or review the patient?s current medications. [If Yes, STOP here]: Yes
[2023-01-25] MEDS: SODIUM CHLORIDE 0.9% 1,000 ML 100 ML IV ×3 (01:52→21:33)
[2023-01-25] MEDS: cefTRIAXone 2,000 MG in SODIUM CHLORIDE 0.9% 100 ML 200 MG IV (01:59)
[2023-01-25] MEDS: ACETAMINOPHEN 325 MG TABLET 650 MG PO ×2 (02:07→20:23)
--- NOTE | 2023-01-25 02:14 | PC.NURSE ---
0100 Pt. admitted to room 209, accompanied by his spouse Pat. Patient was diagnosed with UTI. Orders received & implemented, NS @ 100 cc/hr, Ceftriaxone 2 grams. infusing. Temp. 101.9 Tylenol 650 mg. admin. SPO2 in room air 88-90%. RT. notified order to place 2 liters O2/NC done & sat. 93-95%. Spouse & pt. oriented to the room, call light, TV & bed controls. Limited verbal communications & right sided weakness R/T recent CVA, spouse Pat rooming in to assist patient's needs. Will continue plan of care & monitor.
[2023-01-25 06:43] LABS: Add Manual Diff / Slide Review NO; Basophils Absolute Auto 100 /uL (0-100); Basophils Percent Auto 0.4 % (0-2); Eosinophils Absolute Auto 100 /uL (0-450); Eosinophils Percent Auto 0.6 % (2-4); Hematocrit 23.1 % (41-53); Hemoglobin 7.5 g/dL (13.5-17.5); Lymphocytes Absolute Auto 2400 /uL (1100-4500); Lymphocytes Percent Auto 12.4 % (25-40); Mean Corpuscular HGB Conc 32.6 % (30-36); Mean Corpuscular Hemoglobin 29.4 PG (26-34); Monocytes Absolute Auto 2300 /uL (0-900); Monocytes Percent Auto 12.1 % (3-14); Neutrophils Absolute Auto 14300 /uL (1500-7000); Neutrophils Percent Auto 74.5 % (50-75); Platelet Count 197 X10^3/uL (150-400); Red Blood Cell Count 2.57 X10^6/uL (4.5-5.9); Red Cell Distribution Width 18.5 % (11.6-14.8); White Blood Cell Count 19.2 X10^3/uL (4.5-11.0)
[2023-01-25] MEDS: allopurinoL 100 MG TABLET 300 MG PO (09:00)
[2023-01-25] MEDS: LOSARTAN 50 MG TABLET 100 MG PO (09:00)
[2023-01-25] MEDS: ASPIRIN EC 81 MG TABLET PO (09:01)
[2023-01-25] MEDS: PANTOPRAZOLE DR 40 MG TABLET PO ×2 (09:01→20:22)
[2023-01-25] MEDS: carvediloL 12.5 MG TABLET PO (09:01)
--- NOTE | 2023-01-25 12:44 | CM.DANOTE ---
Initial DCP Assessment Note Pt is an yo male, resident of [place], arrives w/chills and fever and found to have sepsis sec to UTI PCP: Camacho Smith Payer: TRACIE/Jerrod Reviewed chart, patient sleeping soundly and has expressive dysphasia r/t recent stroke, spouse just went home to rest after being at patient's bedside all night. Completed initial DCP assessment with information available on chart Patient here 7.-8.., a direct admit from [facility] for GI bleed. Patient returned home w/spouse to assist and [facility]. According to review of previous notes: Patient had been independent and was driving until suffering a stroke after a scheduled heart procedure at [facility] in [place]. Patient was discharged to [facility] stroke rehab and was there from .-01.18.23 Anticipate patient will return home again w/family to assist and resumption of [facility] if patient/spouse agreeable to this plan. 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 No History Provided By Family Member,Medical Record Prior Living Arrangements House Household Members spouse Type of transporation used prior to Relies on Others admit Willing to Return to Facility? Recent Hx UGPH, stroke rehab Independent with ADL's No Is patient alert and oriented? Yes Comment Will need to follow closely for needs, home w/spouse and HH vs SNF Transportation Arrangement TBD
--- NOTE | 2023-01-25 13:15 | PM.PN.1 ---
Subjective Subjective Date Patient Seen: 01/25/23 Interval history: 78-year-old male with history of recent CVA, recent GI bleed due to duodenal ulcer, GERD, hypertension, CAD, hyperlipidemia, paroxysmal atrial fibrillation, not currently on anticoagulation admitted with UTI sepsis. Pt with sig aphasia since recent stroke and hard to understand although does not appear disoriented. Exam Vital Signs (past 8 hours): - 01/25/23 06:42 01/25/23 07:25 01/25/23 09:01 Temperature 98.5 F Pulse Rate 68 65 75 Respiratory Rate 26 H Blood Pressure 122/66 Pulse Oximetry 95 96 Oxygen Delivery Method Nasal Cannula Oxygen Flow Rate 1 1 Fraction of Inspired Oxygen 24 01/25/23 12:53 01/25/23 13:06 Temperature 98.5 F Pulse Rate 68 Respiratory Rate 26 H Blood Pressure 107/59 L Pulse Oximetry 95 95 Oxygen Delivery Method Nasal Cannula Oxygen Flow Rate 1 1 Fraction of Inspired Oxygen 24 Fraction of Inspired Oxygen 24 SaO2/FiO2 Ratio 395 Oxygen Delivery Method Nasal Cannula Oxygen Flow Rate 1 Narrative Exam Narrative: Gen: alert, NAD Lungs: clear CV: regular Abd: soft Ext: no edema Objective Labs 01/25/23 06:27 01/24/23 18:40 Labs: Laboratory Results - last 24 hr 01/24/23 01/24/23 01/24/23 18:40 18:40 18:40 WBC 18.4 H RBC 3.03 L Hgb 8.9 L Hct 27.4 L MCV 90.3 MCH 29.4 MCHC 32.6 RDW 18.1 H Plt Count 248 Neut % (Auto) 80.0 H Lymph % (Auto) 8.5 L [place] % (Auto) 10.1 Eos % (Auto) 1.0 L Baso % (Auto) 0.4 Neut # (Auto) 79934 H Lymph # (Auto) 1600 [place] # (Auto) 1900 H Eos # (Auto) 200 Baso # (Auto) 100 PT 14.6 H INR 1.3 APTT 32 Sodium 138 Potassium 3.7 Chloride 104 Carbon Dioxide 26 BUN 21 H Creatinine 0.89 Estimated GFR > 60 BUN/Creatinine Ratio 23.6 H Glucose 104 Lactate Calcium 8.9 Total Bilirubin 0.5 AST 32 ALT 26 Alkaline Phosphatase 87 Total Creatine Kinase 240 H Troponin I < 0.012 NT-Pro-B Natriuret Pep Total Protein 7.8 Albumin 4.0 Globulin 3.8 Albumin/Globulin Ratio 1.1 Procalcitonin 0.13 Urine Color Urine Appearance Urine pH Ur Specific [place] Urine Protein Urine Glucose (UA) Urine Ketones Urine Occult Blood Urine Nitrate Urine Bilirubin Urine Urobilinogen Ur Leukocyte Esterase Urine RBC Urine WBC Ur Squamous Epith Cells Urine Bacteria Ur Culture Indicated? SARS-CoV-2 (PCR) 01/24/23 01/24/23 01/24/23 18:40 18:40 19:10 WBC RBC Hgb Hct MCV MCH MCHC RDW Plt Count Neut % (Auto) Lymph % (Auto) [place] % (Auto) Eos % (Auto) Baso % (Auto) Neut # (Auto) Lymph # (Auto) [place] # (Auto) Eos # (Auto) Baso # (Auto) PT INR APTT Sodium Potassium Chloride Carbon Dioxide BUN Creatinine Estimated GFR BUN/Creatinine Ratio Glucose Lactate 1.9 Calcium Total Bilirubin AST ALT Alkaline Phosphatase Total Creatine Kinase Troponin I NT-Pro-B Natriuret Pep 630 H Total Protein Albumin Globulin Albumin/Globulin Ratio Procalcitonin Urine Color Urine Appearance Urine pH Ur Specific [place] Urine Protein Urine Glucose (UA) Urine Ketones Urine Occult Blood Urine Nitrate Urine Bilirubin Urine Urobilinogen Ur Leukocyte Esterase Urine RBC Urine WBC Ur Squamous Epith Cells Urine Bacteria Ur Culture Indicated? SARS-CoV-2 (PCR) Negative 01/24/23 01/25/23 20:14 06:27 WBC 19.2 H RBC 2.57 L Hgb 7.5 L Hct 23.1 L MCV 90.0 MCH 29.4 MCHC 32.6 RDW 18.5 H Plt Count 197 Neut % (Auto) 74.5 Lymph % (Auto) 12.4 L [place] % (Auto) 12.1 Eos % (Auto) 0.6 L Baso % (Auto) 0.4 Neut # (Auto) 45405 H Lymph # (Auto) 2400 [place] # (Auto) 2300 H Eos # (Auto) 100 Baso # (Auto) 100 PT INR APTT Sodium Potassium Chloride Carbon Dioxide BUN Creatinine Estimated GFR BUN/Creatinine Ratio Glucose Lactate Calcium Total Bilirubin AST ALT Alkaline Phosphatase Total Creatine Kinase Troponin I NT-Pro-B Natriuret Pep Total Protein Albumin Globulin Albumin/Globulin Ratio Procalcitonin Urine Color Yellow Urine Appearance Clear Urine pH 5.5 Ur Specific [place] 1.015 Urine Protein Trace H Urine Glucose (UA) Negative Urine Ketones Negative Urine Occult Blood Trace-intact Urine Nitrate Positive H Urine Bilirubin Negative Urine Urobilinogen 0.2 Ur Leukocyte Esterase 1+ H Urine RBC 0-1/hpf Urine WBC 30-100/hpf H Ur Squamous Epith Cells 0-1 /hpf Urine Bacteria Many (>30) H Ur Culture Indicated? 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 Sepsis w/o acute end organ dysfunction -chest, abd, pelvis Ct unremarkable - has non-obstructing kidney stones -lactate nl -cont Rocephin treating for urinary source -cont NS 100 cc/hr for 1 more liter then stop -trend WBC, chem 2. UTI -follow up blood and urine cultures -cont ceftriaxone -monitor post void residuals 3. Recent CVA probably embolic -cont ASA, carvedilol, losartan -holding HCTZ for now -return to rehab when discharged 4. Paroxysmal afib -taken off oral anticoagulant after subdural hematomas earlier this year (due to falls) then had CVA recently -per [employer] records saw political science professor in October and discussed Watchman device but pt couldn't make up his mind and political science professor advised him to go back on Eliquis in the meantime -consider resuming Eliquis in a couple of weeks in light of recent CVA and GIB (discuss preference with patient) -cont carvedilol and ASA 5. Recent GIB -discharged 01/21 after acute blood loss due to duodenal ulcer, this was off anticoagulant -cont bid PPI indefinitely while on ASA +/- anticoagulant DVT prevention: enoxaprin Quality VTE Deep Vein Thrombosis/Pulmonary Embolism Present on Admission: No
--- NOTE | 2023-01-25 14:20 | PT.IIE ---
Current Diagnoses Sepsis, unspecified organism (01/25/23) Essential (primary) hypertension (01/25/23) Atherosclerotic heart disease of [place] coronary artery without angina pectoris (01/25/23) Paroxysmal atrial fibrillation (01/25/23) Urinary tract infection, site not specified (01/25/23) Surgical History (Last Reviewed 01/25/23 @ 03:46 by Zulema Toney DO) H/O lithotripsy Hx of appendectomy Hx of cardiac catheterization Medical History (Last Reviewed 01/25/23 @ 03:46 by Zulema Toney DO) Anemia Chronic anticoagulation Coronary artery disease Essential hypertension Gait instability Gout Hx of non-ST elevation myocardial infarction (NSTEMI) Kidney stones Low back pain Mixed hyperlipidemia Paroxysmal atrial fibrillation Primary osteoarthritis involving multiple joints Physical Therapy Inpatient Evaluation/Re-Eval M1 PT/OT-IP Prior Functional Status Start: 01/25/23 15:44 Freq: NEEDED Status: Active Protocol: Document 01/25/23 14:20 AB (Rec: 01/25/23 16:00 AB [id number]) Medical Review Prior Functional Status Medical History Reviewed Yes Communication able to make needs known Mobility and Gait pt with h/o CVA and has dysphasia. Spouse in room and provided PLOF and home set up info. pt was modified independent with all mobilities and ambulation using 2 SPC. Social History Household Members spouse Living Arrangements House Number of Floors (Floors) One Floor Number of Stairs To Enter/Railing? 1 step to enter with B grab bars on the edge of the door frame has a chair lift to get into the 2nd floor bedroom Home Environment High Toilet,Walk in Shower Home Equipment Front Wheel Walker,Four Wheel Walker,Straight Cane,Shower Seat with Backrest,Hand Held Shower,Grab Bars Near Toilet, Grab Bars In Shower Additional Social History Comment pt has an adjustable bed and R side bed cane M2 PT-IP Current Condition Start: 01/25/23 15:44 Freq: NEEDED Status: Active Protocol: Document 01/25/23 14:20 AB (Rec: 01/25/23 16:00 AB [id number]) Physical Therapy Current Condition Current Condition Evaluation Date 01/25/23 Treatment Diagnosis UTI; sepsis; difficulty in walking Onset Date 01/25/23 M3 PT-IP Subjective Start: 01/25/23 15:44 Freq: NEEDED Status: Active Protocol: Document 01/25/23 14:20 AB (Rec: 01/25/23 16:00 AB [id number]) Subjective Physical Therapy Visit Type Type Initial Evaluation Visit Start Time 14:20 Visit Stop Time 15:25 Total Visit Minutes 65 Notes pt has Hgb 7.5 and Hct 23.1. Talked to the hospitalist and cleared pt to do PT Number of TOURI[employer] HOME KEEPER Visits 0 Physical Therapy Visit Comments Patient Comments agreed to do PT M4 PT-IP Mobility and Gait Start: 01/25/23 15:44 Freq: NEEDED Status: Active Protocol: Document 01/25/23 14:20 AB (Rec: 01/25/23 16:00 AB [id number]) PT-Bed Mobility Assessment Supine to Sit Supine to Sit Maximum Assistance,1 Person Assistance,2 Person Assistance ,Head of Bed Elevated,Bedrails PT-Transfer Assessment Sit to and From Stand Sit to and from Stand Maximum Assistance,2 Person Assistance,Use of Upper Extremities Equipment Transfer Assistive Device Gait Belt,Front Wheeled Walker Orthotic/Prosthetic Devices or Brace: No Transfers Transfer Destination Chair Transfer Technique Stand Step Pivot Transfer Ability Level of Assist Maximum Assistance,1 Person Assistance,Use of Upper Extremities Comments Mobility Comments BP in supine: 103/58. completed supine to sit HOB elevated and used bed rail requiring max A x 1-2 and max cues. pt required CGA to min A for sitting balance on EOB. BP in sittin/50. pt completed sit <> stand from EOB x 2 attempts. elevated height of bed up; sit to stand max A x 2 and max cues. Pt had to rock forward/backward to get to standing position. requiring max A x 1 for step transfer to the chair using FWW. c/o dizziness in standing. BP checked BP sitting on the chair after transfer: 119/58. assessed if pt will be able to stand from a lower surface due to pt not wanting to use the mechanical lift for transfers. completed sit to stand from the chair max A x 2 and max cues. NAC in room and assisted as well and is aware on how to stand the pt with rocking technique. Talked to the nurse and also informed. positioned pt on the chair. call light and table placed within reach. PT-Balance Assessment Sitting Balance and Reactions Static Sitting Balance Ability Good Dynamic Sitting Balance Ability Fair Standing Balance and Reactions Static Standing Balance Ability Poor Dynamic Standing Balance Ability Poor Device Used FWW M5 PT-IP Objective Assessments Start: 01/25/23 15:44 Freq: NEEDED Status: Active Protocol: Document 01/25/23 14:20 AB (Rec: 01/25/23 16:00 AB [id number]) Orientation Orientation/Cognition Level of Alertness Alert Orientation Name Language Function Ability Expressive Aphasia,Word Finding Difficulties Safety Awareness Decreased Safety Awareness Memory Description Short Term Impaired Gross Range of Motion Lower Extremity ROM Assessment Within Functional Limits Strength Lower Extremity Strength Assessment Bilaterally Impaired Hip 3-/5 Knee 4-/5 Muscle Tone Muscle Tone WNL Yes M6 PT-IP Treatment Start: 01/25/23 15:44 Freq: NEEDED Status: Active Protocol: Document 01/25/23 14:20 AB (Rec: 01/25/23 16:00 AB [id number]) Physical Therapy Treatment Education Education Provided Safety M7 PT-IP Assessment and Plan Start: 01/25/23 15:44 Freq: NEEDED Status: Active Protocol: Document 01/25/23 14:20 AB (Rec: 01/25/23 16:00 AB [id number]) PT Summary Assessment and Plan Potential Rehabilitation Potential Fair Status of Condition at Evaluation Evolving Summary Impairments Pain,ROM,Strength,Balance, Coordination,Sensation,Tone, Cognition,Bed Mobility, Transfers,Gait,Activity Tolerance Assessment Summary pt was just admitted last for GI bleed and d/c home 01/21/23. Pt admitted back to the hospital for UTI, sepsis. pt requiring max A x1 -2 for bed mobility and max A x 2 for transfers using FWW. unable to ambulate at this time. will continue to assess progress but at this time, may require SNF rehab. Goals Bed Mobility Goal Minimal Assistance Transfer Goal Minimal Assistance,Front Wheeled Walker Gait Goal Minimal Assistance,Front Wheel Walker Gait Distance 50 Other Goals improve bed mobility, transfers and ambulation using FWW 200 ft SBA up/down 1 step using grab bar/ FWW SBA Days to Meet Goals 10 Frequency of Treatment Frequency Of Treatment Once a Day Treatment Plan Physical Therapy Treatment Plan Bed Mobility Training,Transfer Training,Gait Training, Therapeutic Exercise,Balance Retraining,Discharge Planning, Hot or Cold Pack,Neuromuscular Re-ed,Coordination Retraining Recommendations To Nursing Amount of Assist Needed 2 Person Assist Discharge Recommendations PT Discharge Recommendations Home with 24/7 Assist Available,Home Health,SNF Rehab,Home vs SNF Transportation Needs at Discharge Private Vehicle,Wheelchair/ Cabulance
[2023-01-25] MEDS: SENNOSIDES 8.6 MG TABLET 17.2 MG PO (20:22)
[2023-01-25] MEDS: TRAMADOL 50 MG TABLET PO (20:22)
[2023-01-26] VITALS (11 sets, daily range): BP systolic 129–146; BP diastolic 62–74; PULSE 67–86; RESP 20–26; TEMP 36.6–39.1; O2SAT 91–97
[2023-01-26] MEDS: cefTRIAXone 2,000 MG in SODIUM CHLORIDE 0.9% 100 ML 200 MG IV (01:01)
[2023-01-26 06:21] LABS: Add Manual Diff / Slide Review NO; Basophils Absolute Auto 100 /uL (0-100); Basophils Percent Auto 0.7 % (0-2); Eosinophils Absolute Auto 300 /uL (0-450); Eosinophils Percent Auto 2.9 % (2-4); Hematocrit 21.9 % (41-53); Hemoglobin 7.1 g/dL (13.5-17.5); Lymphocytes Absolute Auto 1600 /uL (1100-4500); Lymphocytes Percent Auto 13.4 % (25-40); Mean Corpuscular HGB Conc 32.4 % (30-36); Mean Corpuscular Hemoglobin 29.3 PG (26-34); Mean Corpuscular Volume 90.4 fL (80-100); Monocytes Absolute Auto 1400 /uL (0-900); Neutrophils Absolute Auto 8400 /uL (1500-7000); Platelet Count 184 X10^3/uL (150-400); Red Blood Cell Count 2.43 X10^6/uL (4.5-5.9); Red Cell Distribution Width 18.4 % (11.6-14.8); White Blood Cell Count 11.9 X10^3/uL (4.5-11.0)
[2023-01-26 06:31] LABS: BUN Creatinine Ratio 25.5 (6-22); Blood Urea Nitrogen 26 mg/dL (9-20); Calcium 7.8 mg/dL (8.4-10.2); Carbon Dioxide 28 mmol/L (22-32); Chloride 107 mmol/L (98-107); Estimated Glomerular Filt Rate > 60 mL/min (>60); Glucose 137 mg/dL (80-110); HEMOLYSIS < 15 (0-50); Potassium 3.6 mmol/L (3.4-5.1); Sodium 141 mmol/L (137-145)
--- NOTE | 2023-01-26 08:00 | P.PN_ITS ---
Subjective Subjective Date Patient Seen: 01/26/23 Interval history: He is seen today his expressive aphasia, GI bleed, anemia and UTI sepsis. He recognizes me from prior interactions during his extended illness. His hemoglobin has progressively dropped from 8.9 down to 7.5 and now 7.1. The white blood count has dropped from 19.2 down to 11.1. The BMP is normal. His urine culture is growing Gram-negative rods which he is being covered with ceftriaxone for. He will be started on IV iron and will have another CBC tomorrow. I discussed with him and his discharge options and strongly recommended inpatient rehab. He is opposed to that, signaling with his eyes and his head that he does not want to do that again. He needs to be able to transfer and have some independent mobility for her to take care of him at home. That is very hard to obtain here as he has been bed-bound and therapy are not available to treat him on the weekend. Exam Vital Signs (past 8 hours): - 01/26/23 06:10 01/26/23 07:41 Temperature 98.3 F Pulse Rate 67 Respiratory Rate 24 Blood Pressure 131/72 Pulse Oximetry 95 97 Oxygen Delivery Method Nasal Cannula Oxygen Flow Rate 2 1.5 Fraction of Inspired Oxygen 24 SaO2/FiO2 Ratio 395 Oxygen Delivery Method Nasal Cannula Oxygen Flow Rate 1.5 Narrative Exam Narrative: He is alert and recognizes me. He is oriented. No apparent distress. Heart is regular rate and rhythm without murmur. Lungs are clear to auscultation bilaterally Abdomen: soft, bowel sounds positive, nontender, no organomegaly Extremities have no ankle edema He is able to say a few words and then garbled speech quite quickly. He is able to signal with his eyes and his head his answers to many questions. Objective Labs 01/26/23 06:00 01/26/23 06:00 Labs: Laboratory Results - last 24 hr 01/26/23 01/26/23 06:00 06:00 WBC 11.9 H RBC 2.43 L Hgb 7.1 L Hct 21.9 L MCV 90.4 MCH 29.3 MCHC 32.4 RDW 18.4 H Plt Count 184 Neut % (Auto) 71.0 Lymph % (Auto) 13.4 L [place] % (Auto) 12.0 Eos % (Auto) 2.9 Baso % (Auto) 0.7 Neut # (Auto) 8400 H Lymph # (Auto) 1600 [place] # (Auto) 1400 H Eos # (Auto) 300 Baso # (Auto) 100 Sodium 141 Potassium 3.6 Chloride 107 Carbon Dioxide 28 BUN 26 H Creatinine 1.02 Estimated GFR > 60 BUN/Creatinine Ratio 25.5 H Glucose 137 H Calcium 7.8 L PFSH Medical History Anemia Chronic anticoagulation Coronary artery disease Essential hypertension Gait instability Gout Hx of non-ST elevation myocardial infarction (NSTEMI) Kidney stones Low back pain Mixed hyperlipidemia Paroxysmal atrial fibrillation Primary osteoarthritis involving multiple joints Surgical History H/O lithotripsy Hx of appendectomy Hx of cardiac catheterization Family History Mother Renal cancer Father War operations involving destruction of aircraft due to collision with other aircraft, personnel, sequela Social 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 Sepsis w/o acute end organ dysfunction -chest, abd, pelvis Ct unremarkable - has non-obstructing kidney stones -lactate nl -cont Rocephin treating for GN rods -no longer on IVF -trend WBC, chem 2. UTI -follow up blood and urine cultures - GNR -cont ceftriaxone -monitor post void residuals 3. 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 -cont ASA, carvedilol, losartan -holding HCTZ for now -return to rehab when discharged 4. Paroxysmal afib -taken off oral anticoagulant after subdural hematomas earlier this year (due to falls) then had CVA recently -per [facility] records saw paper and prints restorer in October and discussed Watchman device but pt couldn't make up his mind and paper and prints restorer advised him to go back on Eliquis in the meantime -consider resuming Eliquis in a couple of weeks in light of recent CVA and GIB (discuss preference with patient) -cont carvedilol and ASA 5. Recent GIB -discharged 01/21 after acute blood loss due to duodenal ulcer, this was off an ticoagulant -cont bid PPI indefinitely while on ASA +/- anticoagulant -Hgb down to 7.1 on 01/26/23 -IV iron infusion 01/26/23, follow CBC and transfuse when below 7.0. -Stop Lovenox on 01/26/23 DVT prevention: SCD Quality VTE Deep Vein Thrombosis/Pulmonary Embolism Present on Admission: No
[2023-01-26] MEDS: ASPIRIN EC 81 MG TABLET PO (08:33)
[2023-01-26] MEDS: allopurinoL 100 MG TABLET 300 MG PO (08:33)
[2023-01-26] MEDS: carvediloL 12.5 MG TABLET PO ×2 (08:33→16:43)
[2023-01-26] MEDS: PANTOPRAZOLE DR 40 MG TABLET PO ×2 (08:34→20:01)
[2023-01-26] MEDS: ENOXAPARIN 40 MG/0.4 ML SYRINGE SUBCUT (08:34)
[2023-01-26] MEDS: LOSARTAN 50 MG TABLET 100 MG PO (08:34)
[2023-01-26] MEDS: SODIUM CHLORIDE 0.9% 1,000 ML 100 ML IV ×2 (12:31→12:32)
[2023-01-26] MEDS: IRON SUCROSE 200 MG in SODIUM CHLORIDE 0.9% 100 ML 220 MG IV (13:01)
--- NOTE | 2023-01-26 15:20 | CM.DPC ---
DCP/Note: Reviewed chart. Per provider in AM rounds patient most likely will need to return to [facility] for acute rehabilitation. [employer] met with patient and spouse at bedside today. Patient currently receiving iron infusion. Spouse inquiring about therapy today. Patient and spouse aware that all 3 therapies are ordered for tomorrow 01-27-23. PT/OT/ST evaluations are all ordered for tomorrow to determine best d/c plan. Left message with director and note in PT office with preference to have patient seen in AM. Patient prefers to d/c home with HH if possible but understands if he needs to return to [facility]. [employer] faxed clinical to rehab for review. Provider reports that patient most likely will be medically stable within the next 24-48hrs. Patient already has [facility] arranged for home. P: Pending. Patient and spouse agreeable for patient to return to acute rehab if absolutely necessary, they prefer home but at this time it is unclear how well patient can ambulate. Per nursing current instructions are only transfers to bed from chair. ABDOULAYE
[2023-01-26] MEDS: SENNOSIDES 8.6 MG TABLET 17.2 MG PO (20:01)
[2023-01-26] MEDS: ACETAMINOPHEN 325 MG TABLET 650 MG PO (20:03)
[2023-01-26] MEDS: TRAMADOL 50 MG TABLET PO (21:05)
[2023-01-27] VITALS (10 sets, daily range): BP systolic 117–140; BP diastolic 68–76; PULSE 64–78; RESP 16–24; TEMP 36.4–37; O2SAT 93–97
[2023-01-27] MEDS: cefTRIAXone 2,000 MG in SODIUM CHLORIDE 0.9% 100 ML 200 MG IV (00:54)
[2023-01-27] MEDS: TRAMADOL 50 MG TABLET PO ×2 (05:39→21:26)
[2023-01-27 05:57] LABS: Add Manual Diff / Slide Review NO; Basophils Absolute Auto 0 /uL (0-100); Basophils Percent Auto 0.6 % (0-2); Eosinophils Absolute Auto 300 /uL (0-450); Eosinophils Percent Auto 4.4 % (2-4); Hematocrit 24.1 % (41-53); Hemoglobin 7.9 g/dL (13.5-17.5); Lymphocytes Absolute Auto 1100 /uL (1100-4500); Lymphocytes Percent Auto 17.1 % (25-40); Mean Corpuscular HGB Conc 32.9 % (30-36); Mean Corpuscular Hemoglobin 29.5 PG (26-34); Mean Corpuscular Volume 89.9 fL (80-100); Monocytes Absolute Auto 1000 /uL (0-900); Monocytes Percent Auto 14.6 % (3-14); Neutrophils Absolute Auto 4200 /uL (1500-7000); Neutrophils Percent Auto 63.3 % (50-75); Platelet Count 195 X10^3/uL (150-400); Red Blood Cell Count 2.68 X10^6/uL (4.5-5.9); Red Cell Distribution Width 18.7 % (11.6-14.8); White Blood Cell Count 6.7 X10^3/uL (4.5-11.0)
[2023-01-27] MEDS: LOSARTAN 50 MG TABLET 100 MG PO (08:28)
[2023-01-27] MEDS: carvediloL 12.5 MG TABLET PO ×2 (08:29→17:25)
[2023-01-27] MEDS: ACETAMINOPHEN 325 MG TABLET 650 MG PO (08:29)
[2023-01-27] MEDS: SODIUM CHLORIDE 0.9% FLUSH 10 ML IV (08:30)
[2023-01-27] MEDS: ASPIRIN EC 81 MG TABLET PO (08:30)
[2023-01-27] MEDS: PANTOPRAZOLE DR 40 MG TABLET PO ×2 (08:30→21:26)
[2023-01-27] MEDS: allopurinoL 100 MG TABLET 300 MG PO (08:30)
--- NOTE | 2023-01-27 09:21 | OT.IP.EVAL ---
Current Diagnoses Sepsis, unspecified organism (01/25/23) Essential (primary) hypertension (01/25/23) Atherosclerotic heart disease of [place] coronary artery without angina pectoris (01/25/23) Paroxysmal atrial fibrillation (01/25/23) Urinary tract infection, site not specified (01/25/23) Past Medical History (Last Reviewed 01/25/23 @ 03:46 by Zulema Toney DO) Anemia Chronic anticoagulation Coronary artery disease Essential hypertension Gait instability Gout Hx of non-ST elevation myocardial infarction (NSTEMI) Kidney stones Low back pain Mixed hyperlipidemia Paroxysmal atrial fibrillation Primary osteoarthritis involving multiple joints Surgical History (Last Reviewed 01/25/23 @ 03:46 by Zulema Toney DO) H/O lithotripsy Hx of appendectomy Hx of cardiac catheterization Occupational Therapy Inpatient Evaluation/Re-Eval M1 PT/OT-IP Prior Functional Status Start: 01/25/23 15:44 Freq: NEEDED Status: Active Protocol: Document 01/27/23 11:25 CGR (Rec: 01/27/23 11:44 CGR [id number]) Medical Review Prior Functional Status Medical History Reviewed Yes Communication able to make needs known Mobility and Gait pt with h/o CVA and has dysphasia. Spouse in room and provided PLOF and home set up info. pt was modified independent with all mobilities and ambulation using 2 SPC. Activities of Daily Living and IADL's Pt needs some assist with bathing but can do most dressing. does all IADLs. Social History Household Members spouse Living Arrangements House Number of Floors (Floors) One Floor Number of Stairs To Enter/Railing? 1 step to enter with B grab bars on the edge of the door frame has a chair lift to get into the 2nd floor bedroom Home Environment High Toilet,Walk in Shower Home Equipment Front Wheel Walker,Four Wheel Walker,Straight Cane,Shower Seat with Backrest,Hand Held Shower,Lift Recliner,Grab Bars Near Toilet,Grab Bars In Shower Employment Status Retired Additional Social History Comment pt has an adjustable bed and R side bed cane. Pt also has a platform for getting in and out of his tall bed. M2 OT-IP Current Condition Start: 01/27/23 11:25 Freq: Status: Active Protocol: Document 01/27/23 11:25 CGR (Rec: 01/27/23 11:44 CGR [id number]) Occupational Therapy Current Condition Current Condition Evaluation Date 01/27/23 Treatment Diagnosis generalized weakness, UTI, sepsis, recent CVA, recent GI bleed Diagnosis Onset Date 01/25/23 M3 OT- IP Subjective and Pain Start: 01/27/23 11:25 Freq: Status: Active Protocol: Document 01/27/23 11:25 CGR (Rec: 01/27/23 11:44 CGR [id number]) OT- Subjective Occupational Therapy Visit Type Type Initial Evaluation Visit Start Time 08:44 Visit Stop Time 09:22 Total Visit Minutes 38 Notes Pt's present throughout most of session. OT Pain Assessment Pain When Pain Assessed At Rest Pain Present Pain Present Pain Reported Location Right Shoulder Scale Used did not rate Pain Behaviors Facial Grimacing,Guarding, Holding Area Management Techniques Distraction,Modification of Treatment,Re-positioning M4 OT- IP ADL's Start: 01/27/23 11:25 Freq: Status: Active Protocol: Document 01/27/23 11:25 CGR (Rec: 01/27/23 11:44 CGR [id number]) OT [id number] Comments OT Self-Feeding Comments not meal time OT ADL-Grooming Comments OT Grooming Comments Pt declined, states fatigued after transfer OT ADL-Oral Care Comments Oral Care Comments Pt declined, states fatigued after transfer OT ADL-Dressing General Eval Lower Body Dressing Ability Total Assistance Areas Needing Assistance Socks OT ADL-Toileting General Evaluation Toileting Ability Minimal Assistance Areas Needing Assistance Manage Clothing Devices Toileting Assistive Devices Urinal Comments OT Toileting Comments Seated in chair OT ADL-Bathing Comments OT Bathing Comments not performed M5 OT- IP IADL's Start: 01/27/23 11:25 Freq: Status: Active Protocol: Document 01/27/23 11:25 CGR (Rec: 01/27/23 11:44 CGR [id number]) OT-Instrumental Activities of Daily Living Deficits IADL Deficits Identified Deficits Home Safety Awareness Awareness of Need for Assistance at Home Good Awareness Ability to Problem Solve Emergency Able to Problem Solve Situations Medication Management Medication Management Caregiver Administers Money Management Money Management Caregiver Provides Assistance Meal Preparation Meal Preparation Caregiver Provides Assist Office Support Associate Office Support Associate Caregiver Provides Assist Driving Driving Comments Pt does not drive M6 OT- IP Functional Cognition Start: 01/27/23 11:25 Freq: Status: Active Protocol: Document 01/27/23 11:25 CGR (Rec: 01/27/23 11:44 CGR [id number]) Cognitive Factors Limiting Selfcare Function Cognitive Ability Level of Alertness Alert Patient Orientation Name,Age,Birthday,Month,Date, Year,Day of Week,Place, Situation Attention Span Ability Capable of Focused Attention, Capable of Sustained Attention Ability to Follow Commands Able to Follow One Step Commands with Increased Time, Able to Follow One Step Commands with Repetition Cognitive Comments Cognitive Assessment Comments PT with expressive aphasia which impacts his ability to fully communicate. OT- Vision and Hearing OT- Hearing Assessment OT- Hearing Assessment WFL OT- Vision Assessment Visual Acuity Glasses For Reading Visual Attentiveness WFL Occular Pursuits WFL Visual Convergence WFL Vision Assessment Comments Pt states he doesn't use reading glasses. His states he has reading glasses but doesn't use them. M7 OT- IP Mobility and Balance Start: 01/27/23 11:25 Freq: Status: Active Protocol: Document 01/27/23 11:25 CGR (Rec: 01/27/23 11:44 CGR [id number]) OT- Bed Mobility Assessment Supine to Sit Supine to Sit Assist Moderate Assistance,1 Person Assistance,Head of Bed Elevated Scooting Scooting to Edge of Bed Total Assistance,1 Person Assistance OT-Transfer Assessment Sit to and From Stand Sit to and from Stand Moderate Assistance,Maximum Assistance,1 Person Assistance Transfers Transfer Ability Minimal Assistance Technique Transfer Destination Bed,Chair Transfer Technique Stand Step Pivot Devices Transfer Assistive Devices Gait Belt,Front Wheeled Walker Comments Mobility Comments Bed high OT- Gait Assessment Comments Gait Ability Comments not performed OT- Balance Assessment Sitting Balance and Reactions Static Sitting Balance Ability Good Dynamic Sitting Balance Ability Fair M8 OT- IP Objective Assessments Start: 01/27/23 11:25 Freq: Status: Active Protocol: Document 01/27/23 11:25 CGR (Rec: 01/27/23 11:44 R [id number]) OT Gross Range of Motion Upper Extremity Range of Motion Assessment Right Impaired ROM Impairments Pt with pain to the R shld that is limiting movement. OT Strength Upper Extremity Strength Assessment Bilaterally Impaired Comments Strength Comments R shld not teseted d/t pain. L shld and arms 4-/5. This is not consistent with the patients need for UE support with transfers and is likely impacted by his current medical situation. OT- Coordination Assessment Upper Extremity Finger to Nose Test Within Functional Limits Finger Tapping Test Within Functional Limits OT-Muscle Tone Assessment Muscle Tone WNL Yes OT Sensation Assessment Edema Edema Absent M9 OT- IP Assessment and Plan Start: 01/27/23 11:25 Freq: Status: Active Protocol: Document 01/27/23 11:25 CGR (Rec: 01/27/23 11:44 CGR [id number]) OT Summary Assessment and Plan Potential Rehabilitation Potential Good Analytic Complexity at Evaluation Moderate Summary OT Impairments Pain,Range of Motion,Strength, Balance,Functional Mobility, Grooming,Dressing,Toileting, Bathing,Toilet Transfers, Shower Transfers,Activity Tolerance Progress Towards Goals Slow Progress due to Pain,Slow Progress due to Medical Issues,Slow Progress due to Activity Tolerance Assessment Summary Pt presents as a moderate complexity evaluation s/p admit for UTI. Pt has a complex recent medical hx including watchman procedure with CVA during or right after the procedure. He then went to rehab and was found to have GI bleed. Now with sepsis from UTI. Pt is progressing but presents today with global weakness likely from his UTI with sepsis. Recommend d/c to acute rehab vs home depending on progress. Goals Self-Feeding Goal Independent Grooming Goal Independent Dressing Goal Standby Assistance,Entry Level, Sock Aid Toileting Goal Standby Assistance Bathing Goal Standby Assistance Toilet Transfer Goal Standby Assistance Shower Transfer Goal Standby Assistance Days to Meet Goals 20 Frequency of Treatment Frequency Of Treatment Once a Day Treatment Plan OT Treatment Plan ADL Training,Functional Mobility,Patient/Family Education,Discharge Planning Other Treatment Recommendations and Next ADLs standing if able Treatment Focus Discharge Recommendations OT Discharge Recommendations Acute Rehab Transportation Needs at Discharge Wheelchair/Cabulance
--- NOTE | 2023-01-27 11:20 | PT.IPTN ---
Current Diagnoses Sepsis, unspecified organism (01/25/23) Essential (primary) hypertension (01/25/23) Atherosclerotic heart disease of [place] coronary artery without angina pectoris (01/25/23) Paroxysmal atrial fibrillation (01/25/23) Urinary tract infection, site not specified (01/25/23) Physical Therapy Treatment Note M2 PT-IP Current Condition Start: 01/25/23 15:44 Freq: NEEDED Status: Active Protocol: Document 01/25/23 14:20 AB (Rec: 01/25/23 16:00 AB [id number]) Physical Therapy Current Condition Current Condition Evaluation Date 01/25/23 Treatment Diagnosis UTI; sepsis; difficulty in walking Onset Date 01/25/23 M3 PT-IP Subjective Start: 01/25/23 15:44 Freq: NEEDED Status: Active Protocol: Document 01/27/23 12:08 TS (Rec: 01/27/23 12:29 TS [id number]) Subjective Physical Therapy Visit Type Type Treatment Note Visit Start Time 11:20 Visit Stop Time 12:00 Total Visit Minutes 40 Notes Spouse in room. Number of LOADING UNIT TOOL SETTER Visits 1 Physical Therapy Visit Comments Patient Comments Pt found resting in chair, agreeable to work with PT. M4 PT-IP Mobility and Gait Start: 01/25/23 15:44 Freq: NEEDED Status: Active Protocol: Document 01/27/23 12:08 TS (Rec: 01/27/23 12:29 TS [id number]) PT-Bed Mobility Assessment Sit to Supine Sit to Supine Moderate Assistance,2 Person Assistance,Bedrails PT-Transfer Assessment Sit to and From Stand Sit to and from Stand Maximum Assistance,2 Person Assistance,Use of Upper Extremities Equipment Transfer Assistive Device Gait Belt,Mechanical Lift Orthotic/Prosthetic Devices or Brace: No Transfers Transfer Destination Bed Transfer Technique Mechanical Lift Transfer Ability Level of Assist Maximum Assistance,2 Person Assistance Comments Mobility Comments Pt found resting in chair, agreeable to PT. Attempted sit to stand MaxA x2 unable to get lift from chair, attemped MaxA x3 was unable to get lift from chair. Sit to stand machine used with 2PA, pt followed cues for pushing through LEs and was transferred to bed. Sit to stand from elevated bed MaxA x2, cues provided for weight forward and upright posture, pt has some retroleaning. He ambulated ~10' in room CGA w/ FWW, has a slow step thru gait , pt reported LEs feeling weak and may buckle. Pt ambulated back to bed, sit to supine ModA x2 for LEs into bed and repositioning of trunk. Pt was left in bed with call light nearby, spouse and SW in room discussing steps after hospital stay. Gait Assessment Gait Gait Assistance Required: Contact Guard Assist Distance (Feet) 10 Assistive Devices Assistive Device Gait Belt,Front Wheeled Walker Gait Deviations General Gait Pattern Decreased Stride Length, Decreased Feet Clearance, Flexed Trunk,Wide Based Gait Factors Limiting Gait Function Factors Limiting Gait Function Decreased Activity Tolerance, Decreased Strength, Incoordination,Limited Range of Motion,Poor Balance,Poor Safety Awareness Comments Gait Comments See mobility comments. PT-Balance Assessment Sitting Balance and Reactions Static Sitting Balance Ability Good Dynamic Sitting Balance Ability Fair Standing Balance and Reactions Static Standing Balance Ability Poor Dynamic Standing Balance Ability Poor Device Used FWW M5 PT-IP Objective Assessments Start: 01/25/23 15:44 Freq: NEEDED Status: Active Protocol: Document 01/25/23 14:20 AB (Rec: 01/25/23 16:00 AB [id number]) Orientation Orientation/Cognition Level of Alertness Alert Orientation Name Language Function Ability Expressive Aphasia,Word Finding Difficulties Safety Awareness Decreased Safety Awareness Memory Description Short Term Impaired Gross Range of Motion Lower Extremity ROM Assessment Within Functional Limits Strength Lower Extremity Strength Assessment Bilaterally Impaired Hip 3-/5 Knee 4-/5 Muscle Tone Muscle Tone WNL Yes M6 PT-IP Treatment Start: 01/25/23 15:44 Freq: NEEDED Status: Active Protocol: Document 01/27/23 12:08 TS (Rec: 01/27/23 12:29 TS [id number]) Physical Therapy Treatment Education Education Provided Safety M7 PT-IP Assessment and Plan Start: 01/25/23 15:44 Freq: NEEDED Status: Active Protocol: Document 01/27/23 12:08 TS (Rec: 01/27/23 12:29 TS [id number]) PT Summary Assessment and Plan Potential Rehabilitation Potential Fair Summary Impairments Pain,ROM,Strength,Balance, Coordination,Sensation,Tone, Cognition,Bed Mobility, Transfers,Gait,Activity Tolerance Progress Towards Goals Slow Progress due to Medical Issues,Slow Progress due to Activity Tolerance Assessment Summary Pt attempted to stand MaxA x2 and MaxA x3 from chair, could not come into standing. Sit to stand machine was used x2 person, he tolerated it well. He performed sit to stand from elevated MaxA x2 with FWW, slow to stand and difficulty coordinating grasping of FWW due to RUE pain. He ambulated ~10' in CGA, pt reports feeling weak and LEs might buckle. PT is recommending acute rehab at this time to progress bed mobility, transfers, gait and activity tolerance. Goals Bed Mobility Goal Minimal Assistance Transfer Goal Minimal Assistance,Front Wheeled Walker Gait Goal Minimal Assistance,Front Wheel Walker Gait Distance 50 Other Goals improve bed mobility, transfers and ambulation using FWW 200 ft SBA up/down 1 step using grab bar/ FWW SBA Days to Meet Goals 10 Frequency of Treatment Frequency Of Treatment Once a Day Treatment Plan Physical Therapy Treatment Plan Bed Mobility Training,Transfer Training,Gait Training, Therapeutic Exercise,Balance Retraining,Discharge Planning, Hot or Cold Pack,Neuromuscular Re-ed,Coordination Retraining Other Recommendations and Next Treatment Continue to progress transfers Focus and gait. Recommendations To Nursing Amount of Assist Needed 3 or More Person Assist Discharge Recommendations PT Discharge Recommendations Acute Rehab Transportation Needs at Discharge Private Vehicle,Wheelchair/ Cabulance
--- NOTE | 2023-01-27 13:02 | ST.IPIE ---
Visit Care Team Role Provider Type Camacho Smith MD Primary Care Provider Physician Specialty: Internal Medicine Address: [address] [place] [address], [id number] Email: [email or web address] Yunior Atkinson MD Family Provider Physician Specialty: Internal Medicine Address: [address] [place] [address], [address], [place], [address] Email: [email or web address] Zulema Toney DO Emergency Provider Physician Referring Provider Specialty: Emergency Medicine Address: [address] [place] [address], [address] Email: [email or web address] Admit Provider Physician Attending Provider Specialty: Internal Medicine Address: [address] [place] [address], [address] Fax: Email: [email or web address] Diagnoses Sepsis, unspecified organism (01/25/23) Essential (primary) hypertension (01/25/23) Atherosclerotic heart disease of [place] coronary artery without angina pectoris (01/25/23) Paroxysmal atrial fibrillation (01/25/23) Urinary tract infection, site not specified (01/25/23) Past Medical History (Last Reviewed 01/25/23 @ 03:46 by Zulema Toney DO) Anemia (Medical) Chronic anticoagulation (Medical) Coronary artery disease (Medical) Essential hypertension (Medical) Gait instability (Medical) Gout (Medical) Hx of non-ST elevation myocardial infarction (NSTEMI) (Medical) Kidney stones (Medical) Low back pain (Medical) Mixed hyperlipidemia (Medical) Paroxysmal atrial fibrillation (Medical) Primary osteoarthritis involving multiple joints (Medical) ST IP Initial Evaluation Report SQL SERVER DBA DEVELOPER Adult Cognitive Linguistic Eval Start: 01/27/23 11:20 Freq: Status: Active Protocol: Document 01/27/23 11:20 CG (Rec: 01/27/23 11:44 CG [id number]) Adult Cognitive Linguistic Evaluation Session Time Visit Start Time 10:15 Visit Stop Time 11:45 Total Visit Minutes 90 Visit Information Visit Number 1 Referral Referring Provider Dia Reason for Referral aphasia s/p CVA Setting Assessment Location Acute Care Visit Type Note Type Initial evaluation Next Note Type Next Note Type Treatment Note Patient Information Identification Type Name Patient History Per H&P: 78-year-old male with history of recent CVA, recent GI bleed, GERD, hypertension, CAD, hyperlipidemia, paroxysmal atrial fibrillation, presented to the ER with generalized weakness, chills, fever and mild diffuse abdominal pain since yesterday. The patient was hospitalized on 01/18/2023 for GI bleed and had EGD showing duodenal ulcer. His Plavix was stopped and was discharged on baby aspirin. The patient had recent CVA and being in the rehab. Denies any chest pain, shortness of breath, cough, palpitations, nausea, vomiting, diarrhea or dysuria. Denies any melena or hematemesis. He still has some speech deficit and confusion from the recent CVA. In the ER he was found to have UTI with sepsis, was given ceftriaxone IV and was decided to be admitted for further management. Based on notes from previous admission, pt was able to speak in short phrases at discharge. However, recent reports from MD, OT, and PT indicate that the pt's aphasia has worsened since UTI and recent admission. SQL SERVER DBA DEVELOPER consulted for assessment of speech/language to determine current abilities. 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 Subjective Patient Report Pt was seated upright in bedside chair upon SQL SERVER DBA DEVELOPER entrance to the room. Pt's was also present. Pt was alert and appeared oriented, though he was unable to accurately answer orientation questions. Appeared that pt's inability to answer orientation questions was due to perseverative speech on the word yes rather than actual lack of orientation, as the pt answered yes/no questions more consistently later in the assessment given a visual yes /no choice to point to rather than being asked to answer verbally. Pt was able to attend to SQL SERVER DBA DEVELOPER visually, and pragmatic language (included facial expressions) were appropriate to context. Pt did appear significantly frustrated by his speech difficulties. Pt appeared to fully understand discussion of his previous career, and attempted to contribute. He laughed at appropriate times following SQL SERVER DBA DEVELOPER jokes, indicating comprehension of conversation overall intact. Mental Status Alert,Responsive,Cooperative Assessment Oral Motor Examination Completed Yes Results Brief oral motor examination during Quick Aphasia Battery indicated adequate structure and function of articulators for speech. Mild speech motor planning deficits were noted during diadakokinetic task. Informal Assessment Receptive Language Normal No Receptive Language Impairment(s) Comprehension of complex yes/ no questions,Picture/Object identification Expressive Language Normal No Expressive Language Impairment(s) Sentence closure/completion, Confrontation naming,Divergent naming,Expression of basic wants/needs,Expression of complex thoughts/ideas,Written expression Pragmatic Language Normal Yes Speech Normal Yes: Normal during repetition Cognition Normal Yes: Appears normal Formal Assessment Standardized Test/Screener Type Quick Aphasia Battery (QAB) Administration Complete Results The pt's overall QAB score was a 2.83/10.00, which is indicative of severe aphasia. The pt's sub-scores are as listed below: Word comprehension: 3.75/10.00 Sentence comprehension: 0.00/ 10.00 Word findin.00/10.00 Grammatical construction: 1.38 /10.00 Speech motor programmin.50 /10.00 Repetition: 9.17/10.00 Readin.83/10.00 The pt's profile is characterized by severe impairments in word-finding and grammaticism, but relatively intact comprehension, repetition, and automatic speech skills. 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 Due to difficulties in lingusitic planning and some difficulties in linguistic processing, the pt benefits from visual input, including visual choice for yes/no questions. Additionally, he will benefit from the use of short, direct sentences in the active voice rather than the passive voice. 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 Based on the pt's presentation and severity of symptoms, SQL SERVER DBA DEVELOPER recommends the followin. Incorporate visuals into communicative exchanges, including for yes/no questions , and allow pt to visually pick yes or no. 2. Use short, direct sentences and questions when speaking with the pt. Try to avoid using passive voice (e.g. instead of saying the medicine will be given by the nurse say the nurse will give you the medicine) . 3. After discharge, recommend intensive speech-language therapy in an inpatient rehabilitation setting or intensive outpatient therapy. Consider Melodic Intonation Therapy and other approaches for severe expressive aphasia. Cognitive Communication Deficits Self-awareness of Cognitive- Situational awareness ( Communication Deficits recognition of problem in context;in real time) Impact on Functioning Activity Limits/Particip.Rest. Mild: Household Tasks Mod: General Tasks and Demands Sev: Interpersonal Interactions Education Employment Community Safety Risks Mild: Being Left Alone at Home Managing Medication Sev: Reacting to Emergency Traveling Alone in Community Prognosis Prognosis Fair Based on Duration of symptoms/severity Plan of Care Speech-Language Treatment Yes Frequency Daily while inpatient Patient/Caregiver Education Described results of evaluation,Patient expressed understanding of evaluation, Patient expressed agreement with goals and treatment plans ,Family/caregivers expressed understanding of evaluation, Family/caregivers expressed agreement with goals and treatment plan,Patient requires further education/ training,Family/caregivers require further education/ training Short Term Goals The pt will accurately answer yes/no questions given a visual yes/no chart in 80% of opportunities, in order to increase ability to communicate basic wants and needs. Pt and will benefit from education regarding stroke recovery, aphasia recovery, and possible treatment techniques in order to guide care after discharge from hospital. Discharge Recommendations Inpatient rehab facility,Home with Home Health
--- NOTE | 2023-01-27 13:07 | PM.PN.1 ---
Subjective Subjective Date Patient Seen: 01/27/23 Interval history: 78 M with recent admission for GIB and duodenal ulcer, recent discharge from rehab for CVA admitted with UTI. Speech is a bit worse with speech therapy. H/h is improved today. Fever to 102 last night. Exam Vital Signs (past 8 hours): - 01/27/23 05:40 01/27/23 07:00 01/27/23 07:37 Temperature 98.1 F Pulse Rate 76 Respiratory Rate 24 Blood Pressure 131/76 Pulse Oximetry 93 93 Oxygen Delivery Method Room Air CPAP Nasal Cannula Oxygen Flow Rate 0 1 Fraction of Inspired Oxygen 24 01/27/23 08:10 01/27/23 08:28 01/27/23 08:29 Temperature 98.2 F Pulse Rate 76 76 76 Respiratory Rate 20 Blood Pressure 134/68 134/68 134/68 Pulse Oximetry 93 Oxygen Delivery Method Oxygen Flow Rate Fraction of Inspired Oxygen Fraction of Inspired Oxygen 24 SaO2/FiO2 Ratio 387 Oxygen Delivery Method Nasal Cannula Oxygen Flow Rate 1 Narrative Exam Narrative: He is alert and recognizes me. He is oriented. No apparent distress. Heart is regular rate and rhythm without murmur. Lungs are clear to auscultation bilaterally Abdomen: soft, bowel sounds positive, nontender, no organomegaly Extremities have no ankle edema He is able to say a few words and then garbled speech quite quickly. He is able to signal with his eyes and his head his answers to many questions. Objective Labs 01/27/23 05:45 01/26/23 06:00 Labs: Laboratory Results - last 24 hr 01/27/23 05:45 WBC 6.7 RBC 2.68 L Hgb 7.9 L Hct 24.1 L MCV 89.9 MCH 29.5 MCHC 32.9 RDW 18.7 H Plt Count 195 Neut % (Auto) 63.3 Lymph % (Auto) 17.1 L Tucker % (Auto) 14.6 H Eos % (Auto) 4.4 H Baso % (Auto) 0.6 Neut # (Auto) 4200 Lymph # (Auto) 1100 Tucker # (Auto) 1000 H Eos # (Auto) 300 Baso # (Auto) 0 PFSH Medical History Anemia Chronic anticoagulation Coronary artery disease Essential hypertension Gait instability Gout Hx of non-ST elevation myocardial infarction (NSTEMI) Kidney stones Low back pain Mixed hyperlipidemia Paroxysmal atrial fibrillation Primary osteoarthritis involving multiple joints Surgical History H/O lithotripsy Hx of appendectomy Hx of cardiac catheterization Family History Mother Renal cancer Father War operations involving destruction of aircraft due to collision with other aircraft, personnel, sequela 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 Sepsis ruled out, acute cystitis with recurrent fever, possible acute metabolic encephalophaty -chest, abd, pelvis Ct unremarkable - has non-obstructing kidney stones -lactate nl -cont Rocephin treating for E. coli, sensitive to ceftriaxone. -no longer on IVF -trend WBC, chem -if afebrile tomorrow can go home, last fever yesterday evening up to 102 still. -worsening speech may be encephalopathy due to UTI, given recent history repeat MRI will not electronic data interchange specialist. 2. UTI -secondary to E. coli, sensitive to cefrtiaxone so will continue. 3. 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 -cont ASA, carvedilol, losartan -holding HCTZ for now -with worsening speech noted compared to prior admisison, unclear timeline, MRI or imaging will not electronic data interchange specialist. 4. Paroxysmal afib -taken off oral anticoagulant after subdural hematomas earlier this year (due to falls) then had CVA recently, recent admission for GI bleed as well. -per Rounds records saw boulevard glassware replacer in October and discussed Watchman device but pt couldn't make up his mind and boulevard glassware replacer advised him to go back on Eliquis in the meantime -consider resuming Eliquis in a couple of weeks in light of recent CVA and GIB (discuss preference with patient) -cont carvedilol and ASA 5. Recent GIB -discharged 01/21 after acute blood loss due to duodenal ulcer, this was off anticoagulant -cont bid PPI indefinitely while on ASA +/- anticoagulant -Hgb down to 7.1 on 01/26/23, but improved to 7.9 after iV iron on 01/26. -Stopped Lovenox on 01/26/23 DVT prevention: SCD Code: Full, surrogate spouse Dispo: possible discharge home with home health tomorrow if remains afebrile. Quality VTE Deep Vein Thrombosis/Pulmonary Embolism Present on Admission: No
--- NOTE | 2023-01-27 13:11 | CM.DPC ---
Addendum entered by AMY Riggs 01/27/23 15:35: ADD: SW met bedside with spouse and pt again and pt still adamantly refuses SNF or Acute Rehab. Spouse confirms that she called [facility] agency and they can meet her at their home on day of discharge and assist with getting pt into the home and then do the initial pwk at that time and just awaiting spouse's call at d/c. Spouse confirms that she will follow her 's wishes of d/c to home and discussed that if pt medically stable to d/c tomorrow, plan is to discharge directly to PCP appointment with Dr. Smith at 1400 and then go home to meet [facility]. SW inquired about distance from car to the lift chair in the home and discussed either having a w/c in the home if needed or a chair positioned in the home in case pt needs to rest and spouse will brainstorm the options and maybe call [employer] in the morning for loaner w/c. Spouse will also call next door neighbor for additional assist at d/c to get pt safely in the home. ADÁN faxed updated clinicals to [facility] and updated on likely d/c tomorrow if medically stable. SW updated RN and HIGH SCHOOL ENGLISH TEACHER on tentative plan for tomorrow. BF Original Note: DCP Cont: Per MD, pt still had a slight fever and awaiting culture results and not yet medically stable to discharge today but possibly tomorrow. Per PT/OT, pt currently about a 2PA and recommending SNF or Acute Inpt at d/c. Per ST, recommending Acute Inpt vs intensive outpt ST. SW met bedside with pt and spouse at the end of PT/OT co-treat and discussed pt's current assist level and pt able to communicate that he wants to d/c home with HH and does not want SNF or Acute rehab. Spouse confirms that it's only herself for assist and sometimes the neighbor for assist at home. [facility] already completed their in-home eval assessment and initiated care and then pt was admitted to the hospital. Pt has a very high bed, very high toilet seat riser, lift chair, and electric stair lift at home that will be helpful. ADÁN discussed needing likely plan A and plan B in case pt does not progress quickly enough to safely d/c home with spouse. SW provided the Senior Resource Guidebook and earmarked [facility] agencies and strongly encouraged spouse to call today to determine cost and availability and spouse very appreciative and agreeable to begin calling today knowing pt might be stable for d/c tomorrow. Spouse is hopeful to have a plan for home as this is pt's preference. AD[place]N called [place] [facility] [place] and she confirms that they received the referral over the weekend and still needs to review but she is aware that pt is wanting to d/c home. Eboni confirms that as long as pt is not admitted for his prior CVA, but a new dx like his current UTI, then they could accept and bill under Medicare. Eboni willing to review and follow in case pt agreeable to [facility] Acute. ADÁN faxed updated therapy notes to review. Plan: SW to follow closely with spouse to determine if [facility] agency was able to be contacted and set up for possible d/c tomorrow Tu01/28 with Resumption of [facility] vs Acute Inpt Rehab. AMY Riggs
[2023-01-27] MEDS: SENNOSIDES 8.6 MG TABLET 17.2 MG PO (21:26)
[2023-01-27] MEDS: polyethylene glycoL 3350 17 GM POWD.PACK PO (21:27)
[2023-01-28] MEDS: SODIUM CHLORIDE 0.9% FLUSH 10 ML IV ×4 (00:38→20:53)
[2023-01-28] MEDS: cefTRIAXone 2,000 MG in SODIUM CHLORIDE 0.9% 100 ML 200 MG IV (00:38)
[2023-01-28 04:00] VITALS: BP 154/78; PULSE 72; RESP 18; TEMP 36.6; O2SAT 93
[2023-01-28 04:46] VITALS: PULSE 78; RESP 18; O2SAT 93
[2023-01-28] MEDS: carvediloL 12.5 MG TABLET PO ×2 (08:53→16:53)
[2023-01-28] MEDS: LOSARTAN 50 MG TABLET 100 MG PO (08:53)
[2023-01-28] MEDS: allopurinoL 100 MG TABLET 300 MG PO (08:53)
[2023-01-28] MEDS: ASPIRIN EC 81 MG TABLET PO (08:53)
[2023-01-28] MEDS: ACETAMINOPHEN 325 MG TABLET 650 MG PO (08:53)
[2023-01-28] MEDS: PANTOPRAZOLE DR 40 MG TABLET PO ×2 (08:53→20:52)
[2023-01-28] MEDS: polyethylene glycoL 3350 17 GM POWD.PACK PO (08:54)
--- NOTE | 2023-01-28 10:23 | OT.IP.TRT ---
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/23) Paroxysmal atrial fibrillation (01/25/23) Urinary tract infection, site not specified (01/25/23) Occupational Therapy Treatment Note M2 OT-IP Current Condition Start: 01/27/23 11:25 Freq: Status: Active Protocol: Document 01/27/23 11:25 CGR (Rec: 01/27/23 11:44 CGR [id number]) Occupational Therapy Current Condition Current Condition Evaluation Date 01/27/23 Treatment Diagnosis generalized weakness, UTI, sepsis, recent CVA, recent GI bleed Diagnosis Onset Date 01/25/23 M3 OT- IP Subjective and Pain Start: 01/27/23 11:25 Freq: Status: Active Protocol: Document 01/28/23 10:23 [facility] (Rec: 01/28/23 11:29 [facility] [id number]) OT- Subjective Occupational Therapy Visit Type Type Treatment Note Visit Start Time 10:23 Visit Stop Time 11:08 Total Visit Minutes 17 Notes Cotxt with HOTEL ASSISTANT GENERAL MANAGER. Occupational Therapy Visit Comments Patient Comments Pt wanting to have a bowel movement. Patient/Caregiver Goals TO get better. After discussion with pt from case management , pt now open to go to skilled rehab. OT Pain Assessment Pain When Pain Assessed During Mobility Pain Present Pain Present Unable to Respond FLACC Pain Scale Face Frequent/constant frown Legs Uneasy, restless, tense Activity Squirming,shifting M4 OT- IP ADL's Start: 01/27/23 11:25 Freq: Status: Active Protocol: Document 01/28/23 10:23 [facility] (Rec: 01/28/23 11:29 [facility] [id number]) OT ADL-Grooming Comments OT Grooming Comments Pt able to wash his face after set-up. OT ADL-Oral Care Comments Oral Care Comments Not performed. OT ADL-Dressing General Eval Lower Body Dressing Ability Total Assistance Areas Needing Assistance Underpants/Brief OT ADL-Toileting General Evaluation Toileting Ability Maximum Assistance,Total Assistance Areas Needing Assistance Manage Clothing,Perform Perineal Hygiene Comments OT Toileting Comments Pt able to come to stand with MAX AX 2 to FWW and EBENEZER to stand afterwards and dependent for all brief and hygiene needs. OT ADL-Bathing Comments OT Bathing Comments Pt able to assist to sponge off his chest and arms after set-up. M5 OT- IP IADL's Start: 01/27/23 11:25 Freq: Status: Active Protocol: Document 01/27/23 11:25 CGR (Rec: 01/27/23 11:44 CGR [id number]) OT-Instrumental Activities of Daily Living Deficits IADL Deficits Identified Deficits Home Safety Awareness Awareness of Need for Assistance at Home Good Awareness Ability to Problem Solve Emergency Able to Problem Solve Situations Medication Management Medication Management Caregiver Administers Money Management Money Management Caregiver Provides Assistance Meal Preparation Meal Preparation Caregiver Provides Assist Teleprinter Installer Teleprinter Installer Caregiver Provides Assist Driving Driving Comments Pt does not drive M6 OT- IP Functional Cognition Start: 01/27/23 11:25 Freq: Status: Active Protocol: Document 01/28/23 10:23 [facility] (Rec: 01/28/23 11:29 [facility] [id number]) Cognitive Factors Limiting Selfcare Function Cognitive Comments Cognitive Assessment Comments Pt able to get his word out at times and inconsistent with yes/no. Pt able to get across needing to use the toilet given options of why he was hurting. M7 OT- IP Mobility and Balance Start: 01/27/23 11:25 Freq: Status: Active Protocol: Document 01/28/23 10:23 [facility] (Rec: 01/28/23 11:29 [facility] [id number]) OT- Bed Mobility Assessment Supine to Sit Supine to Sit Assist Maximum Assistance,2 Person Assistance,Head of Bed Elevated Sit to Supine Sit to Supine Assist Maximum Assistance,1 Person Assistance OT-Transfer Assessment Sit to and From Stand Sit to and from Stand Maximum Assistance,2 Person Assistance Transfers Transfer Ability Minimal Assistance Technique Transfer Destination Bed,Chair Transfer Technique Stand Step Pivot Devices Transfer Assistive Devices Gait Belt,Front Wheeled Walker Comments Mobility Comments High bed. MAX AX 2 to stand to the FWW. OT- Balance Assessment Sitting Balance and Reactions Static Sitting Balance Ability Good Dynamic Sitting Balance Ability Fair Standing Balance and Reactions Static Standing Balance Ability Fair M8 OT- IP Objective Assessments Start: 01/27/23 11:25 Freq: Status: Active Protocol: Document 01/27/23 11:25 CGR (Rec: 01/27/23 11:44 CGR [id number]) OT Gross Range of Motion Upper Extremity Range of Motion Assessment Right Impaired ROM Impairments Pt with pain to the R shld that is limiting movement. OT Strength Upper Extremity Strength Assessment Bilaterally Impaired Comments Strength Comments R shld not tested d/t pain. L shld and arms 4-/5. This is not consistent with the patients need for UE support with transfers and is likely impacted by his current medical situation. OT- Coordination Assessment Upper Extremity Finger to Nose Test Within Functional Limits Finger Tapping Test Within Functional Limits OT-Muscle Tone Assessment Muscle Tone WNL Yes OT Sensation Assessment Edema Edema Absent M9 OT- IP Assessment and Plan Start: 01/27/23 11:25 Freq: Status: Active Protocol: Document 01/28/23 10:23 [facility] (Rec: 01/28/23 11:29 [facility] [id number]) OT Summary Assessment and Plan Potential Rehabilitation Potential Good Analytic Complexity at Evaluation Moderate Summary OT Impairments Pain,Range of Motion,Strength, Balance,Functional Mobility, Grooming,Dressing,Toileting, Bathing,Toilet Transfers, Shower Transfers,Activity Tolerance Progress Towards Goals Progressing Toward Goals Assessment Summary Pt able to transfer to and from the bed to [facility] [place] with MAX AX 2 to stand and EBENEZER for the transfer after coming to stand. Pt will greatly benefit from acute rehab as currently pt is far from his baseline of begin SBA for all needs. Goals Self-Feeding Goal Independent Grooming Goal Independent Dressing Goal Standby Assistance,[place] Tanner, Sock Aid Toileting Goal Standby Assistance Bathing Goal Standby Assistance Toilet Transfer Goal Standby Assistance Shower Transfer Goal Standby Assistance Days to Meet Goals 19 Frequency of Treatment Frequency Of Treatment Once a Day Treatment Plan OT Treatment Plan ADL Training,Functional Mobility,Patient/Family Education,Discharge Planning Other Treatment Recommendations and Next ADLs standing if able Treatment Focus Discharge Recommendations OT Discharge Recommendations Acute Rehab Transportation Needs at Discharge Wheelchair/Cabulance
--- NOTE | 2023-01-28 10:23 | OT.IP.TRT ---
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) Paroxysmal atrial fibrillation (01/25/23) Urinary tract infection, site not specified (01/25/23) Occupational Therapy Treatment Note M2 OT-IP Current Condition Start: 01/27/23 11:25 Freq: Status: Active Protocol: Document 01/27/23 11:25 CGR (Rec: 01/27/23 11:44 CGR [id number]) Occupational Therapy Current Condition Current Condition Evaluation Date 01/27/23 Treatment Diagnosis generalized weakness, UTI, sepsis, recent CVA, recent GI bleed Diagnosis Onset Date 01/25/23 M3 OT- IP Subjective and Pain Start: 01/27/23 11:25 Freq: Status: Active Protocol: Document 01/28/23 10:23 [facility] (Rec: 01/28/23 11:29 [facility] [id number]) OT- Subjective Occupational Therapy Visit Type Type Treatment Note Visit Start Time 10:23 Visit Stop Time 11:08 Total Visit Minutes 17 Notes Cotxt with RISK COMPLIANCE ANALYST. Occupational Therapy Visit Comments Patient Comments Pt wanting to have a bowel movement. Patient/Caregiver Goals TO get better. After discussion with pt from case management , pt now open to go to skilled rehab. OT Pain Assessment Pain When Pain Assessed During Mobility Pain Present Pain Present Unable to Respond FLACC Pain Scale Face Frequent/constant frown Legs Uneasy, restless, tense Activity Squirming,shifting M4 OT- IP ADL's Start: 01/27/23 11:25 Freq: Status: Active Protocol: Document 01/28/23 10:23 [facility] (Rec: 01/28/23 11:29 [facility] [id number]) OT ADL-Grooming Comments OT Grooming Comments Pt able to wash his face after set-up. OT ADL-Oral Care Comments Oral Care Comments Not performed. OT ADL-Dressing General Eval Lower Body Dressing Ability Total Assistance Areas Needing Assistance Underpants/Brief OT ADL-Toileting General Evaluation Toileting Ability Maximum Assistance,Total Assistance Areas Needing Assistance Manage Clothing,Perform Perineal Hygiene Comments OT Toileting Comments Pt able to come to stand with MAX AX 2 to FWW and EBENEZER to stand afterwards and dependent for all brief and hygiene needs. OT ADL-Bathing Comments OT Bathing Comments Pt able to assist to sponge off his chest and arms after set-up. M5 OT- IP IADL's Start: 01/27/23 11:25 Freq: Status: Active Protocol: Document 01/27/23 11:25 CGR (Rec: 01/27/23 11:44 CGR [id number]) OT-Instrumental Activities of Daily Living Deficits IADL Deficits Identified Deficits Home Safety Awareness Awareness of Need for Assistance at Home Good Awareness Ability to Problem Solve Emergency Able to Problem Solve Situations Medication Management Medication Management Caregiver Administers Money Management Money Management Caregiver Provides Assistance Meal Preparation Meal Preparation Caregiver Provides Assist Ledger Clerk Ledger Clerk Caregiver Provides Assist Driving Driving Comments Pt does not drive M6 OT- IP Functional Cognition Start: 01/27/23 11:25 Freq: Status: Active Protocol: Document 01/28/23 10:23 [facility] (Rec: 01/28/23 11:29 [facility] [id number]) Cognitive Factors Limiting Selfcare Function Cognitive Comments Cognitive Assessment Comments Pt able to get his word out at times and inconsistent with yes/no. Pt able to get across needing to use the toilet given options of why he was hurting. M7 OT- IP Mobility and Balance Start: 01/27/23 11:25 Freq: Status: Active Protocol: Document 01/28/23 10:23 [facility] (Rec: 01/28/23 11:29 [facility] [id number]) OT- Bed Mobility Assessment Supine to Sit Supine to Sit Assist Maximum Assistance,2 Person Assistance,Head of Bed Elevated Sit to Supine Sit to Supine Assist Maximum Assistance,1 Person Assistance OT-Transfer Assessment Sit to and From Stand Sit to and from Stand Maximum Assistance,2 Person Assistance Transfers Transfer Ability Minimal Assistance Technique Transfer Destination Bed,Chair Transfer Technique Stand Step Pivot Devices Transfer Assistive Devices Gait Belt,Front Wheeled Walker Comments Mobility Comments HIgh bed. MAX AX 2 to stand to the FWW. OT- Balance Assessment Sitting Balance and Reactions Static Sitting Balance Ability Good Dynamic Sitting Balance Ability Fair Standing Balance and Reactions Static Standing Balance Ability Fair M8 OT- IP Objective Assessments Start: 01/27/23 11:25 Freq: Status: Active Protocol: Document 01/27/23 11:25 CGR (Rec: 01/27/23 11:44 CGR [id number]) OT Gross Range of Motion Upper Extremity Range of Motion Assessment Right Impaired ROM Impairments Pt with pain to the R shld that is limiting movement. OT Strength Upper Extremity Strength Assessment Bilaterally Impaired Comments Strength Comments R shld not teseted d/t pain. L shld and arms 4-/5. This is not consistent with the patients need for UE support with transfers and is likely impacted by his current medical situation. OT- Coordination Assessment Upper Extremity Finger to Nose Test Within Functional Limits Finger Tapping Test Within Functional Limits OT-Muscle Tone Assessment Muscle Tone WNL Yes OT Sensation Assessment Edema Edema Absent M9 OT- IP Assessment and Plan Start: 01/27/23 11:25 Freq: Status: Active Protocol: Document 01/28/23 10:23 [facility] (Rec: 01/28/23 11:29 [facility] [id number]) OT Summary Assessment and Plan Potential Rehabilitation Potential Good Analytic Complexity at Evaluation Moderate Summary OT Impairments Pain,Range of Motion,Strength, Balance,Functional Mobility, Grooming,Dressing,Toileting, Bathing,Toilet Transfers, Shower Transfers,Activity Tolerance Progress Towards Goals Progressing Toward Goals Assessment Summary Pt able to transfer to and from the bed to [facility] MAX AX 2 to stand and EBENEZER for the transfer after coming to stand. Pt will greatly benefit from acute rehab as currently pt is far from his baseline of begin SBA for all needs. At this time due to weakness and difficulty to come to stand and needing extensive two person assist it will be beneficial for pt to have S transport for safety. Goals Self-Feeding Goal Independent Grooming Goal Independent Dressing Goal Standby Assistance,Shift Commander, Sock Aid Toileting Goal Standby Assistance Bathing Goal Standby Assistance Toilet Transfer Goal Standby Assistance Shower Transfer Goal Standby Assistance Days to Meet Goals 19 Frequency of Treatment Frequency Of Treatment Once a Day Treatment Plan OT Treatment Plan ADL Training,Functional Mobility,Patient/Family Education,Discharge Planning Other Treatment Recommendations and Next ADLs standing if able Treatment Focus Discharge Recommendations OT Discharge Recommendations Acute Rehab Transportation Needs at Discharge Wheelchair/Cabulance
--- NOTE | 2023-01-28 10:41 | PT.IPTN ---
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) Paroxysmal atrial fibrillation (01/25/23) Urinary tract infection, site not specified (01/25/23) Physical Therapy Treatment Note M2 PT-IP Current Condition Start: 01/25/23 15:44 Freq: NEEDED Status: Active Protocol: Document 01/25/23 14:20 AB (Rec: 01/25/23 16:00 AB [id number]) Physical Therapy Current Condition Current Condition Evaluation Date 01/25/23 Treatment Diagnosis UTI; sepsis; difficulty in walking Onset Date 01/25/23 M3 PT-IP Subjective Start: 01/25/23 15:44 Freq: NEEDED Status: Active Protocol: Document 01/28/23 11:24 TS (Rec: 01/28/23 11:45 TS [id number]) Subjective Physical Therapy Visit Type Type Treatment Note Visit Start Time 10:41 Visit Stop Time 11:08 Total Visit Minutes 27 Notes Spouse present. Split treatment with OT. Number of FLY MAKER Visits 2 Physical Therapy Visit Comments Patient Comments Pt found resting in bed, spouse in room discussing next steps of care with SW, pt agreeable to go to rehab after hospital stay, agreeablet to PT. M4 PT-IP Mobility and Gait Start: 01/25/23 15:44 Freq: NEEDED Status: Active Protocol: Document 01/28/23 11:24 TS (Rec: 01/28/23 11:45 TS [id number]) PT-Bed Mobility Assessment Supine to Sit Supine to Sit Maximum Assistance,2 Person Assistance,Head of Bed Elevated,Bedrails Sit to Supine Sit to Supine Maximum Assistance,2 Person Assistance Scooting Scooting to Edge of Bed Maximum Assistance PT-Transfer Assessment Sit to and From Stand Sit to and from Stand Maximum Assistance,2 Person Assistance,Use of Upper Extremities Equipment Transfer Assistive Device Gait Belt,Mechanical Lift Orthotic/Prosthetic Devices or Brace: No Transfers Transfer Destination Bed,Chair Transfer Technique Stand Pivot Transfer Ability Level of Assist Minimal Assistance,2 Person Assistance Comments Mobility Comments Pt found resting in bed, agreeable to PT. Supine to sit MaxA with handheld assist for uprighting trunk and LE assistance, provided cues for BUE support pushing from bed, pt uses L>R due to pain in R shoulder. Pt scooted to EOB MaxA with use of transfer pad, provided cues fo rBUE support pushing from bed to scoot hips forwrd. Sit to stand MaxA x2 from elevated bed with FWW , pt with some retroleaning. He ambulated ~10'Boyd for retrolean, pt reports feeling his LEs are going to buckle, ambulated back to bed. Pt requested to use commode, sit to stand MaxA x2, stand pivot tranfer to commode Boyd. Pt stood from commmode for pericare after use of commode MaxA x2. Stand pivot back to bed with sidestepping x3 Boyd. Sit to supine MaxA for LEs into bed, pt laterally scooted SBA for repositioning in bed. Pt was left in bed, spouse in room, all needs met. Gait Assessment Gait Gait Assistance Required: Minimum Assistance Distance (Feet) 10 Assistive Devices Assistive Device Gait Belt,Front Wheeled Walker Orthotic/Prosthetic Devices or Brace: No Gait Deviations General Gait Pattern Decreased Stride Length, Decreased Feet Clearance, Flexed Trunk,Wide Based Gait Factors Limiting Gait Function Factors Limiting Gait Function Decreased Activity Tolerance, Decreased Strength, Incoordination,Limited Range of Motion,Poor Balance,Poor Safety Awareness Comments Gait Comments See mobility comments. PT-Balance Assessment Sitting Balance and Reactions Static Sitting Balance Ability Good Dynamic Sitting Balance Ability Fair Standing Balance and Reactions Static Standing Balance Ability Fair Dynamic Standing Balance Ability Poor Device Used FWW M5 PT-IP Objective Assessments Start: 01/25/23 15:44 Freq: NEEDED Status: Active Protocol: Document 01/25/23 14:20 AB (Rec: 01/25/23 16:00 AB [id number]) Orientation Orientation/Cognition Level of Alertness Alert Orientation Name Language Function Ability Expressive Aphasia,Word Finding Difficulties Safety Awareness Decreased Safety Awareness Memory Description Short Term Impaired Gross Range of Motion Lower Extremity ROM Assessment Within Functional Limits Strength Lower Extremity Strength Assessment Bilaterally Impaired Hip 3-/5 Knee 4-/5 Muscle Tone Muscle Tone WNL Yes M6 PT-IP Treatment Start: 01/25/23 15:44 Freq: NEEDED Status: Active Protocol: Document 01/28/23 11:24 TS (Rec: 01/28/23 11:45 TS [id number]) Physical Therapy Treatment Education Education Provided Safety M7 PT-IP Assessment and Plan Start: 01/25/23 15:44 Freq: NEEDED Status: Active Protocol: Document 01/28/23 11:24 TS (Rec: 01/28/23 11:45 TS [id number]) PT Summary Assessment and Plan Potential Rehabilitation Potential Fair Summary Impairments Pain,ROM,Strength,Balance, Coordination,Sensation,Tone, Cognition,Bed Mobility, Transfers,Gait,Activity Tolerance Progress Towards Goals Slow Progress due to Medical Issues,Slow Progress due to Activity Tolerance Assessment Summary Pt continues to make slow progress with his mobility. He is MaxA for all bed mobility and requiring max cueing for supine to sit. He performed sit to stand x3 MaxA x2 from elevated bed and from commode, pt has difficulty grasping FWW with R hand making him unstable. He continues to ambulate ~10'Boyd for retroleaning with FWW, pt continues to report feeling like his legs are going to buckle. Pt remains a high falls risk and has poor activity tolerance. Recommending acute rehab before safe d/c home. Pt will need BLS transport at this time due to being unsafe to transport into private vehicle due to health issues, poor mobility, poor strength and poor activity tolerance. Goals Bed Mobility Goal Minimal Assistance Transfer Goal Minimal Assistance,Front Wheeled Walker Gait Goal Minimal Assistance,Front Wheel Walker Gait Distance 50 Other Goals improve bed mobility, transfers and ambulation using FWW 200 ft SBA up/down 1 step using grab bar/ FWW Days to Meet Goals 10 Frequency of Treatment Frequency Of Treatment Once a Day Treatment Plan Physical Therapy Treatment Plan Bed Mobility Training,Transfer Training,Gait Training, Therapeutic Exercise,Balance Retraining,Discharge Planning, Hot or Cold Pack,Neuromuscular Re-ed,Coordination Retraining Other Recommendations and Next Treatment Continue to progress transfers Focus and gait. Recommendations To Nursing Amount of Assist Needed 2 Person Assist Discharge Recommendations PT Discharge Recommendations Acute Rehab Transportation Needs at Discharge Wheelchair/Cabulance
--- NOTE | 2023-01-28 10:41 | PT.IPTN ---
Current Diagnoses Sepsis, unspecified organism (01/25/23) Essential (primary) hypertension (01/25/23) Atherosclerotic heart disease of [place] coronary artery without angina pectoris (01/25/23) Paroxysmal atrial fibrillation (01/25/23) Urinary tract infection, site not specified (01/25/23) Physical Therapy Treatment Note M2 PT-IP Current Condition Start: 01/25/23 15:44 Freq: NEEDED Status: Active Protocol: Document 01/25/23 14:20 AB (Rec: 01/25/23 16:00 AB [id number]) Physical Therapy Current Condition Current Condition Evaluation Date 01/25/23 Treatment Diagnosis UTI; sepsis; difficulty in walking Onset Date 01/25/23 M3 PT-IP Subjective Start: 01/25/23 15:44 Freq: NEEDED Status: Active Protocol: Document 01/28/23 11:24 TS (Rec: 01/28/23 11:45 TS [id number]) Subjective Physical Therapy Visit Type Type Treatment Note Visit Start Time 10:41 Visit Stop Time 11:08 Total Visit Minutes 27 Notes Spouse present. Split treatment with OT. Number of DENTAL ASSISTANT Visits 2 Physical Therapy Visit Comments Patient Comments Pt found resting in bed, spouse in room discussing next steps of care with SW, pt agreeable to go to rehab after hospital stay, agreeablet to PT. M4 PT-IP Mobility and Gait Start: 01/25/23 15:44 Freq: NEEDED Status: Active Protocol: Document 01/28/23 11:24 TS (Rec: 01/28/23 11:45 TS [id number]) PT-Bed Mobility Assessment Supine to Sit Supine to Sit Maximum Assistance,2 Person Assistance,Head of Bed Elevated,Bedrails Sit to Supine Sit to Supine Maximum Assistance,2 Person Assistance Scooting Scooting to Edge of Bed Maximum Assistance PT-Transfer Assessment Sit to and From Stand Sit to and from Stand Maximum Assistance,2 Person Assistance,Use of Upper Extremities Equipment Transfer Assistive Device Gait Belt,Mechanical Lift Orthotic/Prosthetic Devices or Brace: No Transfers Transfer Destination Bed,Chair Transfer Technique Stand Pivot Transfer Ability Level of Assist Minimal Assistance,2 Person Assistance Comments Mobility Comments Pt found resting in bed, agreeable to PT. Supine to sit MaxA with handheld assist for uprighting trunk and LE assistance, provided cues for BUE support pushing from bed, pt uses L>R due to pain in R shoulder. Pt scooted to EOB MaxA with use of transfer pad, provided cues fo rBUE support pushing from bed to scoot hips forwrd. Sit to stand MaxA x2 from elevated bed with FWW , pt with some retroleaning. He ambulated ~10'Boyd for retrolean, pt reports feeling his LEs are going to buckle, ambulated back to bed. Pt requested to use commode, sit to stand MaxA x2, stand pivot tranfer to commode Boyd. Pt stood from commmode for pericare after use of commode MaxA x2. Stand pivot back to bed with sidestepping x3 Boyd. Sit to supine MaxA for LEs into bed, pt laterally scooted SBA for repositioning in bed. Pt was left in bed, spouse in room, all needs met. Gait Assessment Gait Gait Assistance Required: Minimum Assistance Distance (Feet) 10 Assistive Devices Assistive Device Gait Belt,Front Wheeled Walker Orthotic/Prosthetic Devices or Brace: No Gait Deviations General Gait Pattern Decreased Stride Length, Decreased Feet Clearance, Flexed Trunk,Wide Based Gait Factors Limiting Gait Function Factors Limiting Gait Function Decreased Activity Tolerance, Decreased Strength, Incoordination,Limited Range of Motion,Poor Balance,Poor Safety Awareness Comments Gait Comments See mobility comments. PT-Balance Assessment Sitting Balance and Reactions Static Sitting Balance Ability Good Dynamic Sitting Balance Ability Fair Standing Balance and Reactions Static Standing Balance Ability Fair Dynamic Standing Balance Ability Poor Device Used FWW M5 PT-IP Objective Assessments Start: 01/25/23 15:44 Freq: NEEDED Status: Active Protocol: Document 01/25/23 14:20 AB (Rec: 01/25/23 16:00 AB [id number]) Orientation Orientation/Cognition Level of Alertness Alert Orientation Name Language Function Ability Expressive Aphasia,Word Finding Difficulties Safety Awareness Decreased Safety Awareness Memory Description Short Term Impaired Gross Range of Motion Lower Extremity ROM Assessment Within Functional Limits Strength Lower Extremity Strength Assessment Bilaterally Impaired Hip 3-/5 Knee 4-/5 Muscle Tone Muscle Tone WNL Yes M6 PT-IP Treatment Start: 01/25/23 15:44 Freq: NEEDED Status: Active Protocol: Document 01/28/23 11:24 TS (Rec: 01/28/23 11:45 TS [id number]) Physical Therapy Treatment Education Education Provided Safety M7 PT-IP Assessment and Plan Start: 01/25/23 15:44 Freq: NEEDED Status: Active Protocol: Document 01/28/23 11:24 TS (Rec: 01/28/23 11:45 TS [id number]) PT Summary Assessment and Plan Potential Rehabilitation Potential Fair Summary Impairments Pain,ROM,Strength,Balance, Coordination,Sensation,Tone, Cognition,Bed Mobility, Transfers,Gait,Activity Tolerance Progress Towards Goals Slow Progress due to Medical Issues,Slow Progress due to Activity Tolerance Assessment Summary Pt continues to make slow progress with his mobility. He is MaxA for all bed mobility and requiring max cueing for supine to sit. He performed sit to stand x3 MaxA x2 from elevated bed and from commode, pt has difficulty grasping FWW with R hand making him unstable. He continues to ambulate ~10'Boyd for retroleaning with FWW, pt continues to report feeling like his legs are going to buckle. Pt remains a high falls risk and has poor activity tolerance. PT is recommending acute rehab before safe d/c home. Goals Bed Mobility Goal Minimal Assistance Transfer Goal Minimal Assistance,Front Wheeled Walker Gait Goal Minimal Assistance,Front Wheel Walker Gait Distance 50 Other Goals improve bed mobility, transfers and ambulation using FWW 200 ft SBA up/down 1 step using grab bar/ FWW SBA Days to Meet Goals 10 Frequency of Treatment Frequency Of Treatment Once a Day Treatment Plan Physical Therapy Treatment Plan Bed Mobility Training,Transfer Training,Gait Training, Therapeutic Exercise,Balance Retraining,Discharge Planning, Hot or Cold Pack,Neuromuscular Re-ed,Coordination Retraining Other Recommendations and Next Treatment Continue to progress transfers Focus and gait. Recommendations To Nursing Amount of Assist Needed 2 Person Assist Discharge Recommendations PT Discharge Recommendations Acute Rehab Transportation Needs at Discharge Private Vehicle,Wheelchair/ Cabulance
--- NOTE | 2023-01-28 11:41 | PC.NURSE ---
Addendum entered by Collette Sheikh R.N. 01/28/23 13:12: patient ambulated short distance in room w/ 2pa and FWW. very weak LE's and moving from laying to sitting + sitting to standing is slightly improved since yesterday. 1300: transfer to Rehab is on hold due to transportation not being available til the morning at approx 0930. patient and notified + dc is on hold. Original Note: 0800: alert, oriented. aphasia, provided w/ message board that has alphabet and other pictures (yes/no, cold/hot, hungry/pain/etc.) Pat rooming in, states there is an MD appt today w/ Dr Garcia, and patient is supposed to get into a wheelchair and go to that appointment and then we are going home. CM aware of above. 1100: PT/OT assisting patient to EOB. 2pa mod/max assist w/ FWW. tentative plan is for patient to d/c to inpatient rehab in [place].
[2023-01-28 12:00] VITALS: BP 115/59; PULSE 68; RESP 16; TEMP 36.2; O2SAT 96
--- NOTE | 2023-01-28 12:36 | PM.DS.1 ---
History of Present Illness History of Present Illness Date Patient Seen: 01/28/23 Time Patient Seen: 12:37 Chief complaint: Chills/ Fevers Narrative: Per admitting provider, 78-year-old male with history of recent CVA, recent GI bleed, GERD, hypertension, CAD, hyperlipidemia, paroxysmal atrial fibrillation, presented to the ER with generalized weakness, chills, fever and mild diffuse abdominal pain since yesterday. The patient was hospitalized on 01/18/2023 for GI bleed and had EGD showing duodenal ulcer. His Plavix was stopped and was discharged on baby aspirin. The patient had recent CVA and being in the rehab. Denies any chest pain, shortness of breath, cough, palpitations, nausea, vomiting, diarrhea or dysuria. Denies any melena or hematemesis. He still has some speech deficit and confusion from the recent CVA. in the ER he was found to have UTI with sepsis, was given ceftriaxone IV and was decided to be admitted for further management. Discharge Providers Provider Date of admission: 01/25/23 00:04 Discharge Date: 01/28/23 Primary care physician: Camacho Smith MD Consults: 01/25/23 11:32 Consult to Physical Therapy Evaluate & Treat Comment: Physician Instructions: Evaluate and Treat 01/26/23 14:08 Consult to Physical Therapy Evaluate & Treat Comment: Physician Instructions: Evaluate and Treat 01/26/23 14:11 Consult to Occupational Therapy Evaluate & Treat Comment: Physician Instructions: Evaluate and treat Consult to Speech Therapy Evaluate & Treat Comment: Physician Instructions: Evaluate and treat Discharge provider: Luis Benedict DO Summary Hospital Course Discharge Diagnosis: 1. Sepsis ruled out, acute cystitis with recurrent fever, possible acute metabolic encephalophaty -chest, abd, pelvis Ct unremarkable - has non-obstructing kidney stones -lactate nl -cont Rocephin treating for E. coli, sensitive to ceftriaxone. -no longer on IVF -trend WBC, chem -if afebrile tomorrow can go home, last fever yesterday evening up to 102 still. -worsening speech may be encephalopathy due to UTI, given recent history repeat MRI will not electronic data interchange specialist. 2. UTI -secondary to E. coli, sensitive to cefrtiaxone so will continue. 3. 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 -cont ASA, carvedilol, losartan -holding HCTZ for now -with worsening speech noted compared to prior admisison, unclear timeline, MRI or imaging will not electronic data interchange specialist. 4. Paroxysmal afib -taken off oral anticoagulant after subdural hematomas earlier this year (due to falls) then had CVA recently, recent admission for GI bleed as well. -per [facility] records saw protein scientist in October and discussed Watchman device but pt couldn't make up his mind and protein scientist advised him to go back on Eliquis in the meantime -consider resuming Eliquis in a couple of weeks in light of recent CVA and GIB (discuss preference with patient) -cont carvedilol and ASA 5. Recent GIB Exam Vital Signs (past 8 hours): - 01/28/23 04:46 01/28/23 07:00 01/28/23 12:00 Temperature 97.2 F L Pulse Rate 78 68 Respiratory Rate 18 16 Blood Pressure 115/59 L Pulse Oximetry 93 96 Oxygen Delivery Method CPAP Room Air Oxygen Flow Rate 0 Fraction of Inspired Oxygen 24 SaO2/FiO2 Ratio 387 Oxygen Delivery Method Room Air Oxygen Flow Rate 0 Objective Labs 01/27/23 05:45 01/26/23 06:00 PFSH Medical History Anemia Chronic anticoagulation Coronary artery disease Essential hypertension Gait instability Gout Hx of non-ST elevation myocardial infarction (NSTEMI) Kidney stones Low back pain Mixed hyperlipidemia Paroxysmal atrial fibrillation Primary osteoarthritis involving multiple joints Surgical History H/O lithotripsy Hx of appendectomy Hx of cardiac catheterization Family History Mother Renal cancer Father War operations involving destruction of aircraft due to collision with other aircraft, personnel, sequela Social History details: (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 PLEASE CALL TO SCHEDULE APPT. THANKS 12/21/21 + 02/04/22. ICaps AREDS2 (copper citrate) 250 mg-200 unit -12.5 mg-1 mg tablet 1 tab PO BID allopurinol 300 mg tablet 300 mg PO DAILY Qty: 90 3RF aspirin 81 mg Tablet,Delayed Release (Dr/Ec) 81 mg PO DAILY acetaminophen 325 mg tablet 650 mg PO .8HR PRN (Reason: pain) pantoprazole 40 mg tablet,delayed release (DR/EC) 40 mg PO BID 30 Days Qty: 60 0RF hydrochlorothiazide 25 mg tablet 25 mg PO DAILY carvedilol 12.5 mg tablet 12.5 mg PO BID (DME) Resmed Airsense 10 CPAP Qty: 1 Rx Instructions: Pressure: 10-18 cmH2O DME: [employer] Follow up/Referrals: Camacho Smith MD [Primary Care Provider] - Discharge Data Primary Care Provider: Camacho Smith V Quality VTE Deep Vein Thrombosis/Pulmonary Embolism Present on Admission: No
--- NOTE | 2023-01-28 12:41 | SLP.IPNOTE ---
Per case management, pt is preparing for 1:30 d/c to [facility]. Pt and are currently occupied with d/c preparation; therefore, no EMBRYOLOGY TEACHER tx at this time. Continue to recommend intensive EMBRYOLOGY TEACHER tx at inpatient rehabilitation facility.
--- NOTE | 2023-01-28 13:12 | CM.DPNOTE ---
Scheduled BLS transport by [facility] for 10:00 am on Friday, 01/29. Requested by Kaci. Anabelle Alba CM Bundle Packer.
--- NOTE | 2023-01-28 14:51 | CM.DPNOTE ---
DCP Note Working on coordination of DCP throughout the day; patient and spouse agreeable now to discharge to [facility] acute inpatient rehab. Dr Benedict and therapy team pleased Discussed transportation options with patient's spouse, AUDIO VISUAL SPECIALIST Krzysztof and OT Anita present. Spouse concerned about the cost of BLS as she received a bill for $1,400 for a five mile ride home. Strongly encouraged spouse to consider patient's safety as he is currently not able to do a stand pivot transfer Spouse inevitably agreeable to BLS transport because it is strongly recommended by therapy team. Spouse understands that there could again be an out of pocket cost for BLS transport [facility] called and can transport at 1545, [facility] called and cannot supervisor opening and picking any earlier Discussed with Eboni at [facility], they cannot admit patient that late. BLS now scheduled for 1000 transport to [facility] tomorrow 8.9., updated Eboni at [facility], DR Benedict, patient/spouse and RN/PURCHASING COORDINATOR Plan: Discharge to [facility] via BLS tomorrow at 1000, med list and new Rx faxed to Eboni at [facility] today NURSE 2 NURSE report # [phone] JANN
--- NOTE | 2023-01-28 18:31 | PM.PN.1 ---
Subjective Subjective Date Patient Seen: 01/27/23 Interval history: 78 M with recent admission for GIB and duodenal ulcer, recent discharge from rehab for CVA admitted with UTI. Speech is a bit worse with speech therapy. H/h is improved today. Afebilre. After extensive discussions patient was agreeable for acute rehab again. Exam Vital Signs (past 8 hours): - 01/28/23 12:00 Temperature 97.2 F L Pulse Rate 68 Respiratory Rate 16 Blood Pressure 115/59 L Pulse Oximetry 96 Oxygen Flow Rate 0 Fraction of Inspired Oxygen 24 SaO2/FiO2 Ratio 387 Oxygen Delivery Method Room Air Oxygen Flow Rate 0 Narrative Exam Narrative: He is alert and recognizes me. He is oriented. No apparent distress. Heart is regular rate and rhythm without murmur. Lungs are clear to auscultation bilaterally Abdomen: soft, bowel sounds positive, nontender, no organomegaly Extremities have no ankle edema He is able to say a few words and then garbled speech quite quickly. He is able to signal with his eyes and his head his answers to many questions. Objective Labs 01/27/23 05:45 01/26/23 06:00 [facility] Medical History Anemia Chronic anticoagulation Coronary artery disease Essential hypertension Gait instability Gout Hx of non-ST elevation myocardial infarction (NSTEMI) Kidney stones Low back pain Mixed hyperlipidemia Paroxysmal atrial fibrillation Primary osteoarthritis involving multiple joints Surgical History H/O lithotripsy Hx of appendectomy Hx of cardiac catheterization Family History Mother Renal cancer Father War operations involving destruction of aircraft due to collision with other aircraft, personnel, sequela Social History details: (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 Sepsis ruled out, acute cystitis with recurrent fever, possible acute metabolic encephalophaty -chest, abd, pelvis Ct unremarkable - has non-obstructing kidney stones -lactate nl -cont Rocephin treating for E. coli, sensitive to ceftriaxone. Discharge on cefdinir with resistance to penicillins. -no longer on IVF -trend WBC, chem -worsening speech may be encephalopathy due to UTI, given recent history repeat MRI will not exchange teller. -PT recommending return to acute rehab, will transfer tomorrow. 2. UTI due to E. coli -secondary to E. coli, sensitive to cefrtiaxone so will continue. Discharge on oral cefdinir as noted above. 3. 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 -cont ASA, carvedilol, losartan -holding HCTZ for now -with worsening speech noted compared to prior admisison, unclear timeline, MRI or imaging will not exchange teller. 4. Paroxysmal afib -taken off oral anticoagulant after subdural hematomas earlier this year (due to falls) then had CVA recently, recent admission for GI bleed as well. -per [employer] records saw membership solicitor in October and discussed Watchman device but pt couldn't make up his mind and membership solicitor advised him to go back on Eliquis in the meantime -consider resuming Eliquis in a couple of weeks in light of recent CVA and GIB (discuss preference with patient and possibly with cardiology) -cont carvedilol and ASA 5. Recent GIB -discharged 01/21 after acute blood loss due to duodenal ulcer, this was off anticoagulant -cont bid PPI indefinitely while on ASA +/- anticoagulant -Hgb down to 7.1 on 01/26/23, but improved to 7.9 after iV iron on 01/26. -Stopped Lovenox on 01/26/23 DVT prevention: SCD Code: Full, surrogate spouse Dispo: transfer to acute rehab planned for tomorrow. Discussed with patient and spouse. Discussed with care management extensively today. Quality VTE Deep Vein Thrombosis/Pulmonary Embolism Present on Admission: No
[2023-01-28 20:25] VITALS: BP 148/45; PULSE 64; RESP 18; TEMP 36.4; O2SAT 95
[2023-01-28] MEDS: SENNOSIDES 8.6 MG TABLET 17.2 MG PO (20:52)
[2023-01-29] MEDS: cefTRIAXone 2,000 MG in SODIUM CHLORIDE 0.9% 100 ML 200 MG IV (00:31)
[2023-01-29] MEDS: SODIUM CHLORIDE 0.9% FLUSH 10 ML IV (00:31)
[2023-01-29 04:00] VITALS: BP 153/81; PULSE 69; RESP 18; TEMP 36.5; O2SAT 93
[2023-01-29] MEDS: PANTOPRAZOLE DR 40 MG TABLET PO (09:11)
[2023-01-29 09:12] VITALS: BP 159/93; PULSE 66
[2023-01-29] MEDS: ASPIRIN EC 81 MG TABLET PO (09:12)
[2023-01-29] MEDS: ACETAMINOPHEN 325 MG TABLET 650 MG PO (09:12)
[2023-01-29] MEDS: allopurinoL 100 MG TABLET 300 MG PO (09:12)
[2023-01-29] MEDS: carvediloL 12.5 MG TABLET PO (09:12)
[2023-01-29] MEDS: LOSARTAN 50 MG TABLET 100 MG PO (09:12)
[2023-01-29 09:14] VITALS: BP 159/93; PULSE 66; RESP 16; TEMP 36.7; O2SAT 97
[2023-01-29] MEDS: TRAMADOL 50 MG TABLET PO (09:20)
--- NOTE | 2023-01-29 10:00 | PM.DS.1 ---
History of Present Illness History of Present Illness Chief complaint: Chills/ Fevers Narrative: Per H&P: 78-year-old male with history of recent CVA, recent GI bleed, GERD, hypertension, CAD, hyperlipidemia, paroxysmal atrial fibrillation, presented to the ER with generalized weakness, chills, fever and mild diffuse abdominal pain since yesterday.? The patient was hospitalized on 01/18/2023 for GI bleed and had EGD showing duodenal ulcer.? His Plavix was stopped and was discharged on baby aspirin.? The patient had recent CVA and being in the rehab.? Denies any chest pain, shortness of breath, cough, palpitations, nausea, vomiting, diarrhea or dysuria.? Denies any melena or hematemesis.? He still has some speech deficit and confusion from the recent CVA. in the ER he was found to have UTI with sepsis, was given ceftriaxone IV and was decided to be admitted for further management. Discharge Providers Provider Date of admission: 01/25/23 00:04 Discharge Date: 01/29/23 Primary care physician: Camacho Smith MD Consults: 01/25/23 11:32 Consult to Physical Therapy Evaluate & Treat Comment: Physician Instructions: Evaluate and Treat 01/26/23 14:08 Consult to Physical Therapy Evaluate & Treat Comment: Physician Instructions: Evaluate and Treat 01/26/23 14:11 Consult to Occupational Therapy Evaluate & Treat Comment: Physician Instructions: Evaluate and treat Consult to Speech Therapy Evaluate & Treat Comment: Physician Instructions: Evaluate and treat 01/29/23 09:04 Consult to Home Health Routine Comment: Reason For Exam: [facility] Discharge provider: Cami Du MD Summary Hospital Course Discharge Diagnosis: 1. Sepsis ruled out, acute cystitis with recurrent fever, possible acute metabolic encephalophaty 2. UTI due to E. coli 3. 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 Paroxysmal afib 5. Recent GIB Hospital Course: Pt has hx of recent CVA w/expressive aphasia and weakness, recent hospitalization for GIB who was admitted w/sepsis d/t E coli UTI. He was admitted and treated w/IV Rocephin. PT/OT recommended acute inpatient rehab and he was accepted to [facility]. He initially declined, but then became receptive. Plans were in place for dc on 01/28/23, but d/t late transport time, his discharge was delayed unitl 01/29/23 at 10am. On the morning of dc, pt reported to me that he had changed his mind and was only willing to return home w/HH. He had spoken w/his who was receptive to his plan. I noted that he was unable to sit up in his hospital bed for an exam. However, he was confident he would be able to mobilize independently at home. Ultimately, he d/c'd home via BLS in stable condition. He remains at HIGH risk for readmission Status at Discharge Cognitive/behavioral status at discharge: at baseline, oriented Functional status at discharge: bed bound Overall status at discharge: patient is not back to baseline Time Spent with Patient Time spent: Greater than 30 minutes Exam Vital Signs (past 8 hours): Fraction of Inspired Oxygen 24 SaO2/FiO2 Ratio 387 Oxygen Delivery Method Room Air Oxygen Flow Rate 0 Const General: well developed, No acute distress and ill appearing HENMT Head: normal to inspection and normocephalic Resp Effort & Inspection: normal respiratory effort and other (CTAB) Cardio Rate: regular rate Rhythm: regular rhythm GI Palpation: soft, no hepatosplenomegaly and No tender Neuro Speech: expressive aphasia Extrem General: normal to inspection and no clubbing, cyanosis or edema Objective Labs 01/27/23 05:45 01/26/23 06:00 [facility] Medical History Anemia Chronic anticoagulation Coronary artery disease Essential hypertension Gait instability Gout Hx of non-ST elevation myocardial infarction (NSTEMI) Kidney stones Low back pain Mixed hyperlipidemia Paroxysmal atrial fibrillation Primary osteoarthritis involving multiple joints Surgical History H/O lithotripsy Hx of appendectomy Hx of cardiac catheterization Family History Mother Renal cancer Father War operations involving destruction of aircraft due to collision with other aircraft, personnel, sequela Social History details: (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 work hard every day! try to get up for each meal... increase your stamina!~ it will help your back pain to get movin! it was a pleasure to be your nurse today, i hope you have success at inpatient rehabilitation! Discharge orders & Medications Prescriptions: New sennosides [senna] 8.6 mg Tablet 17.2 mg PO BEDTIME Qty: 30 0RF polyethylene glycol 3350 17 gram Powder In Packet 17 gm PO DAILY Qty: 1 0RF tramadol 50 mg Tablet 50 mg PO Q6H PRN (Reason: pain) Qty: 30 0RF cefdinir 300 mg capsule 300 mg PO BID 7 Days Qty: 14 0RF Continued losartan 100 mg tablet 100 mg PO DAILY Qty: 15 0RF Rx Instructions: NO FUTURE FILLS UNTIL SEEN. PLEASE CALL TO SCHEDULE APPT. THANKS 12/21/21 + 02/04/22. ICaps AREDS2 (copper citrate) 250 mg-200 unit -12.5 mg-1 mg tablet 1 tab PO BID allopurinol 300 mg tablet 300 mg PO DAILY Qty: 90 3RF aspirin 81 mg Tablet,Delayed Release (Dr/Ec) 81 mg PO DAILY acetaminophen 325 mg tablet 650 mg PO .8HR PRN (Reason: pain) pantoprazole 40 mg tablet,delayed release (DR/EC) 40 mg PO BID 30 Days Qty: 60 0RF hydrochlorothiazide 25 mg tablet 25 mg PO DAILY carvedilol 12.5 mg tablet 12.5 mg PO BID No Action (DME) Resmed Airsense 10 CPAP Qty: 1 Rx Instructions: Pressure: 10-18 cmH2O DME: [employer] Follow up/Referrals: Camacho Smith MD [Primary Care Provider] - Discharge Health Status Multidrug resistant organism: No MDRO Precautions: [place] Diet/Activity/Treatments Diet: Diet as Tolerated and Regular Liquid consistency: Normal/Thin Food texture: Regular Activity: As tolerated with no restrictions Special Rehabilitation Services Reason for rehabilitation: Therapy following stroke and Recovery r/t decondition Rehab type: Physical therapy, Occupational therapy and Speech therapy Visit Report/Discharge Packet Instructions: Urinary Tract Infection, DI for Urinary Tract Infection (UTI), How to Prevent Falls, DI for Aphasia Discharge Data Primary Care Provider: Camacho Smith V Discharges patient from system. Discharge Date/Time: 01/29/23 11:03 Quality VTE Deep Vein Thrombosis/Pulmonary Embolism Present on Admission: No
--- NOTE | 2023-01-29 11:01 | PC.NURSE ---
Pt discharged home by BLS at 1140, escorted off floor in stretcher, accompanied by ambulance personnel and spouse. IV removed, discharge teaching provided to spouse including follow up appointments, new medications and how to prevent falls. Questions answered and concerns addressed. Pt and spouse left the floor with all belongings.
--- NOTE | 2023-01-29 13:53 | CM.DPNOTE ---
DC Note Patient communicated to Dr Du this morning that he will not discharge to acute inpatient rehab, he will be going home Dr Du updated this OCC THERAPIST and requests patient's discharge be to home w/HH Reviewed plan w/patient's spouse Pat who was agreeable to taking patient home, did state acute rehab would be the best place for him. Discussed home health services and suggested [facility] ([facility]) which front loads HH visits in the first few weeks of care, spouse agreeable to this [employer] health assistant placed call to [facility], patient meets criteria for [facility], F2F and HH order sent This OCC THERAPIST [facility] on spouse's behalf. [employer] (name?) explains they do not have good availability right now but that she planned to contact spouse to relay this and suggest other caregiver agencies that may be able to help more readily BLS transport was kept for transport home at 1000. DARIUS Mina updated as was Eboni at [facility] Plan: Discharge home w/spouse and [facility] via BLS Attempted to notify PCP Dr Smith of patient's discharge home, via RN and Doc work station, no answer JW
== END 2023-01-29 11:03 | disposition home health service (06) | DRG 689 ==
LOC: ED 23:17 → AC 01-25 00:04
PROVIDERS: Family Medicine; Internal Medicine; Admitting Provider Internal Medicine; Emergency Provider Emergency Medicine; Family Provider Student in an Organized Health Care Education/Training Program; PCP Internal Medicine; Referring Provider Emergency Medicine; Visit Provider Internal Medicine
DX: N30.00 Acute cystitis without hematuria (principal); G93.41 Metabolic encephalopathy; I25.10 Atherosclerotic heart disease of native coronary artery without angina pectoris; I10 Essential (primary) hypertension; I48.0 Paroxysmal atrial fibrillation; B96.20 Unspecified Escherichia coli [E. coli] as the cause of diseases classified elsewhere; I69.320 Aphasia following cerebral infarction; M10.9 Gout, unspecified; Z87.19 Personal history of other diseases of the digestive system; Z87.891 Personal history of nicotine dependence
CPT/HCPCS: 36415; 71045; 71275; 74177; 80048; 80053; 81001; 81003; 82550; 83605; 83880; 84145; 84484; 85025; 85610; 85730; 87040; 87077; 87086; 87186; 87635; 92523; 93005; 94762; 97116; 97163; 97166; 97530; 97535; 99283; 99285; C9803; J0696; J1650; J1756; Q9967

== ENCOUNTER → 2023-02-19 12:24 | Outpatient (CLI) | payer MEDICARE, OTHER, SELFPAY ==
[2023-01-25 01:00] VITALS: BMI 36.6
[2023-02-19 13:16] LABS: Appearance Urine UA CLOUDY; Bilirubin Urine UA NEGATIVE (NEGATIVE); Color Urine UA YELLOW; Glucose Urine UA NEGATIVE (Negative); Ketones Urine UA NEGATIVE (NEGATIVE); Leukocyte Esterase Urine UA 3+ (NEGATIVE); Nitrite Urine UA NEGATIVE (Negative); Occult Blood Urine UA 2+ (Negative); Protein Urine UA 1+ (Negative); Specific Gravity Urine UA 1.015 (1.000-1.035); Urobilinogen Urine UA 0.2 E.U./dL (0.2); pH Urine UA 5.5 (4.5-8.0)
[2023-02-19 13:31] LABS: Bacteria Urine Few (2-10); Culture Indicated Urine Specimen Cultured; RBC Urine 1-5/HPF (0-5/HPF); Squamous Epithelial Cell Urine 1-5 /HPF (0-5/HPF); WBC Urine 30-100/HPF (0-5/HPF)
== END ==
PROVIDERS: Family Provider Student in an Organized Health Care Education/Training Program; PCP Internal Medicine; Referring Provider Internal Medicine; Visit Provider Internal Medicine
DX: N39.0 Urinary tract infection, site not specified (principal)
CPT/HCPCS: 81001; 87077; 87086; 87186

== ENCOUNTER 2023-02-20 09:25 | Inpatient (IN) | payer MEDICARE, OTHER, SELFPAY ==
[2023-01-25 01:00] VITALS: BMI 36.6
[2023-02-20] VITALS (17 sets, daily range): BP systolic 94–130; BP diastolic 52–76; PULSE 68–80; RESP 15–37; TEMP 36.7–36.8; O2SAT 92–97; BMI 40.6; BMI 39.9
--- NOTE | 2023-02-20 | DI.CT.S_ITS ---
PROCEDURE: CT ANGIO HEAD AND NECK INDICATIONS: HISTORY OF STROKE TECHNIQUE: After the administration of intravenous contrast, 1 mm thick sections acquired from the aortic arch through the [place]. 3-dimensional jvfrcxs-fsfttcdss-fjfwtsujaj (MIP) and/or volume rendering reformats were acquired of the central intracranial vasculature and neck separately. For radiation dose reduction, the following was used: automated exposure control, adjustment of mA and/or kV according to patient size. COMPARISON: [facility], CT, CT HEAD/BRAIN WO CON, 02/20/2023, 10:05. [facility], CT, CT ANGIO HEAD AND NECK, 07/30/2022, 13:20. FINDINGS: Image quality: Diagnostic. BRAIN: Limited visualization of brain as this is protocol for CTA. Low-attenuation is present in the left frontal temporal lobe as identified on CT brain. Atrophy and chronic microvascular ischemic changes are present. HEAD CT ANGIOGRAPHY: Anterior circulation: Intracranial internal carotid arteries are normal in size and flow. The flow within the paired anterior cerebral arteries is normal and symmetric. The flow within the middle cerebral arteries is normal and symmetric. The anterior communicating artery is seen. No aneurysms are seen. Posterior circulation: Vertebral arteries are codominant. Visualized portions of the vertebral arteries demonstrate normal caliber, and join to form a normal appearing basilar artery. Flow within the posterior cerebral arteries is normal and symmetric. No aneurysms are seen. NECK CT ANGIOGRAPHY: Carotid system: The great vessels demonstrate a conventional anatomy as they arise from the aortic arch. The origins of the common carotid arteries appear patent. The common carotid arteries demonstrate normal caliber and courses. The bifurcation regions are both widely patent. The internal carotid arteries demonstrate stable interval exam compared to prior exam demonstrating calcification at the origin. There is approximate 50% narrowing on the right and 60-70% narrowing on the left. Posterior circulation: The origins of the vertebral arteries both appear widely patent. The more superior extracranial portions of both vertebral arteries also demonstrate normal courses and calibers. They join to form a normal appearing basilar artery. Soft tissues: Visualized neck soft tissues demonstrate no suspicious abnormalities. Bones: No suspicious bony lesions. Visualized cervical spine appears normally aligned. IMPRESSION: Low-attenuation left frontal temporal lobe suggestive of subacute ischemia. No hemorrhage. No areas of hemodynamically significant stenosis, vascular occlusion or aneurysmal dilation within the anterior circulation. No areas of hemodynamically significant stenosis, vascular occlusion or aneurysmal dilation within the posterior circulation. 50% left and 60-70% right stenosis of the internal carotid arteries bilaterally, unchanged. Any quantitative measurements of stenosis were performed using NASCET criteria. Dictated by: Shabnam Rudolph M.D. on 02/20/2023 at 12:09 Approved by: Shabnam Rudolph M.D. on 02/20/2023 at 12:11
--- NOTE | 2023-02-20 09:54 | DI.CT.S_ITS ---
PROCEDURE: CT HEAD/BRAIN WO CON INDICATIONS: Weakness TECHNIQUE: Noncontrast 4.5 mm thick angled axial sections acquired from the foramen magnum to the vertex, with coronal and sagittal reformats. For radiation dose reduction, the following was used: automated exposure control, adjustment of mA and/or kV according to patient size. COMPARISON: [facility], CT, CT ANGIO HEAD AND NECK, 02/20/2023, 10:05. [facility], CT, CT HEAD/BRAIN WO CON, 10/11/2022, 12:58. FINDINGS: Image quality: Excellent. CSF spaces: Basal cisterns are patent. No extra-axial fluid collections. The ventricles are symmetric in size and shape. Brain: No intracranial bleeds or masses. There is cerebral volume loss for age, with resultant ventricular and sulcal prominence. There is low attenuation within the left frontal temporal lobe which has developed since prior exam in 10/11/2022. No hemorrhage within this region. There are periventricular and deep white matter chronic small vessel ischemic changes. There is intracranial internal carotid artery atherosclerosis. Skull and face: Calvarium and visualized facial bones appear intact, without suspicious lesions. Sinuses: Visualized sinuses and mastoids are clear. IMPRESSION: Low-attenuation within the left frontal temporal lobe possibly related to subacute/late subacute infarction. As clinically indicated, MRI may be obtained for further evaluation. No superimposed hemorrhage. Atrophy and chronic microvascular ischemic changes are present. Dictated by: Shabnam Rudolph M.D. on 02/20/2023 at 10:38 Approved by: Shabnam Rudolph M.D. on 02/20/2023 at 10:47
--- NOTE | 2023-02-20 09:59 | PC.NURSE ---
patient came into the ED with weakness and complaints of increased urinary frequency. He denies pain, discharge, burning. He was seen by telehealth call from Dr. Garcia and was told to submit a urine sample. he was found to have a UTI. Dr. Smith put him on sulfa/ trimethroprim. The gave him his first dose last at around 800 pm and at 10 the states that he slumped a little in his chair and wasn't feeling well. She said he denied a need for medical attention and went to bed. He slepted through the night His 02 saturation is 93% on RA. His lungs sound clear bilaterally. He has not had a cough or report of SOB. He has a history of NC and was supposed to have a Watchman placed but has not had it yet. His legs are free from pain and no notable signs of edema in his legs.
[2023-02-20 10:01] LABS: Add Manual Diff / Slide Review NO; Basophils Absolute Auto 100 /uL (0-100); Basophils Percent Auto 0.4 % (0-2); Eosinophils Absolute Auto 300 /uL (0-450); Hematocrit 32.6 % (41-53); Hemoglobin 10.3 g/dL (13.5-17.5); Lymphocytes Absolute Auto 1700 /uL (1100-4500); Lymphocytes Percent Auto 12.6 % (25-40); Mean Corpuscular HGB Conc 31.6 % (30-36); Mean Corpuscular Hemoglobin 27.1 PG (26-34); Monocytes Absolute Auto 2000 /uL (0-900); Monocytes Percent Auto 15.3 % (3-14); Neutrophils Absolute Auto 9300 /uL (1500-7000); Neutrophils Percent Auto 69.7 % (50-75); Platelet Count 243 X10^3/uL (150-400); Red Blood Cell Count 3.79 X10^6/uL (4.5-5.9); Red Cell Distribution Width 20.2 % (11.6-14.8); White Blood Cell Count 13.3 X10^3/uL (4.5-11.0)
[2023-02-20 10:02] LABS: INR 1.2 (0.9-1.3)
[2023-02-20 10:05] LABS: PTT Partial Thromboplastin Tim 34 SECONDS (26-36)
[2023-02-20 10:11] LABS: Alanine Aminotransferase 25 IU/L (<50); Albumin 4.4 g/dL (3.5-5.0); Albumin Globulin Ratio 1.1 (1.0-2.8); Alkaline Phosphatase 83 U/L (38-126); Aspartate Aminotransferase 31 IU/L (17-59); BUN Creatinine Ratio 28.3 (6-22); Bilirubin Total 0.6 mg/dL (0.2-1.3); Blood Urea Nitrogen 45 mg/dL (9-20); Calcium 9.5 mg/dL (8.4-10.2); Carbon Dioxide 23 mmol/L (22-32); Chloride 106 mmol/L (98-107); Creatine Kinase 212 U/L (55-170); Estimated Glomerular Filt Rate 44 mL/min (>60); Globulin 4.1 g/dL (1.7-4.1); Glucose 115 mg/dL (80-110); HEMOLYSIS < 15 (0-50); Potassium 4.5 mmol/L (3.4-5.1); Sodium 140 mmol/L (137-145); Total Protein 8.5 g/dL (6.3-8.2)
[2023-02-20 10:22] LABS: Troponin I < 0.012 ng/mL (0.01-0.034)
--- NOTE | 2023-02-20 10:30 | ED_ITS ---
HPI - Altered Mental Status General Chief Complaint: Weakness Stated Complaint: General Weakness Time Seen by Provider: 02/20/23 09:52 Source: EMS Mode of arrival: EMS History of Present Illness HPI narrative: Patient brought in by ambulance from home for confusion and generalized weakness. Blood sugar 136. Patient has history stroke recently. Occurred while he was having watchman placed. Patient is on Plavix. Patient was sent to rehab after the stroke. While there he developed rectal bleeding and was sent here for admission and had endoscopy. He was discharged home from this facility after GI bleed admit. He did return again for admission for UTI. Last well known 9:00 p.m. last night. Patient stroke left him with speech problems. He is getting therapy. No limb complaints. He has baseline lower leg weakness which is not new he gets therapy for that. states he is ?out of it? and not himself. No slurred speech or facial droop. Fast exam is negative Related Data Home Medications Medication Instructions Recorded Confirmed aspirin 81 mg tablet,delayed 81 mg PO DAILY 08/12/18 02/20/23 release Resmed Airsense 10 CPAP #1 ea 04/29/19 02/20/23 vit C 250 mg-vit E 200 unit-zinc 1 tab PO BID 10/04/20 02/20/23 12.5 mg-copper 1 [id number]-nvwfap tablet (ICaps AREDS2 (copper citrate)) carvedilol 12.5 mg tablet 12.5 mg PO BID 05/20/22 02/20/23 hydrochlorothiazide 25 mg tablet 25 mg PO DAILY 05/20/22 02/20/23 acetaminophen 325 mg tablet 650 mg PO .8HR PRN pain 08/23/22 02/20/23 clopidogrel 75 mg tablet 75 mg PO DAILY 02/19/23 02/20/23 Previous Rx's Medication Instructions Recorded losartan 100 mg tablet 100 mg PO DAILY #15 tabs 02/04/22 allopurinol 300 mg tablet 300 mg PO DAILY #90 tabs 04/03/22 tramadol 50 mg tablet 50 mg PO Q6H PRN pain #30 tabs 01/28/23 Allergies Allergy/AdvReac Type Severity Reaction Status Date / Time prednisone Allergy Severe Confusion Verified 02/20/23 09:30 celecoxib [From Celebrex] Allergy Intermediate Gastrointestinal Verified 02/20/23 09:30 Upset oxycodone [From Percocet] Allergy Intermediate Nausea Verified 02/20/23 09:30 Efscjwo-ARA-XpL Reductase AdvReac Severe Autoimmune Verified 02/20/23 09:30 Inhibitor myositis [Jbpvcyq-Zgp-Hqj Reductase Inhibitor] codeine AdvReac Mild Redness of Verified 02/20/23 09:30 Skin icosapent ethyl AdvReac Mild Nausea Verified 02/20/23 09:30 Review of Systems Review of Systems Narrative: GENERAL: negative chills, positive fatigue, malaise, positive fever, sweats. HEENT: negative sinus pain, ear pain, sore throat RESPIRATORY: negative dyspnea, cough CARDIOVASCULAR: negative chest pain, palpitations GASTROINTESTINAL: negative nausea, vomiting, abdominal pain : negative dysuria, frequency, hematuria MUSCULOSKELETAL: negative muscle or bony pain SKIN: negative rash, skin lesions NEUROLOGIC: Positive weakness, negative slurred speech headache unilateral limb weakness numbness ROS Unobtainable: All systems reviewed & are unremarkable except as noted in HPI and below Patient History Medical History Anemia Cerebrovascular disease Chronic anticoagulation Coronary artery disease Essential hypertension Gait instability Gout Hx of non-ST elevation myocardial infarction (NSTEMI) Kidney stones Low back pain Mixed hyperlipidemia Paroxysmal atrial fibrillation Primary osteoarthritis involving multiple joints Surgical History H/O lithotripsy Hx of appendectomy Hx of cardiac catheterization Family History Mother Renal cancer Father War operations involving destruction of aircraft due to collision with other aircraft, personnel, sequela 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 EYES: Pupils equal round ENT: Mucous membranes moist. NECK: Trachea midline. CARDIOVASCULAR: Regular rate and rhythm RESPIRATORY: Clear to auscultation. Breath sounds equal bilaterally. No wheezes, rales, or rhonchi. GASTROINTESTINAL: Abdomen soft, non-tender EXTREMITIES: No gross deformities. BACK: No flank tenderness. NEURO: AOx4. Clear speech no facial droop light touch intact bilateral face hands and legs. Strong equal flue gas analyst. Negative pronator drift. Txtlmq-tc-gfpv intact. Has baseline bilateral leg weakness but able to lift each leg off the bed independently but very little. Does not drop to the bed SKIN: Warm and dry PSYCH: Not anxious, is cooperative Initial Vital Signs Initial Vital Signs: Vital Signs Temperature 98.3 F 02/20/23 09:18 Pulse Rate 80 02/20/23 09:18 Respiratory Rate 15 02/20/23 09:18 Blood Pressure 113/69 02/20/23 09:18 Pulse Oximetry 93 02/20/23 09:18 Oxygen Delivery Method Room Air 02/20/23 09:18 Scores NIH Stroke Scale Level of Conciousness: Alert, keenly responsive Ask month/age: Answers both questions correctly. Open/close eyes, close hand: Performs both tasks correctly Best gaze horizontal: Normal Visual luque: No visual loss Facial palsy: Normal symetrical movement Left arm drift: No drift for full 10 sec Right arm drift: No drift for full 10 sec Left leg drift: No drift for full 5 sec Right leg drift: No drift for full 5 sec Limb ataxia: Absent Sensory on face/arms/legs: Normal, no sensory loss Best language: No aphasia, normal Dysarthria: Normal Extinction or inattention: No abnormality Total NIH Stroke scale score: 0 Course Orders Ordered: Discontinued Medications Acetaminophen (Acetaminophen 325 Mg Tablet) 650 mg PO Q6H PRN PRN Reason: Fever/Mild Pain (1-3) Last Admin: 02/21/23 13:31 Dose: 650 mg Documented By: Admin: 02/21/23 01:31 Dose: 650 mg Documented By: Admin: 02/20/23 16:13 Dose: 650 mg Documented By: KAITLIN Aspirin (Aspirin Ec 81 Mg Tablet) 81 mg PO DAILY [facility] Last Admin: 02/22/23 08:59 Dose: 81 mg Documented By: Admin: 02/21/23 08:40 Dose: 81 mg Documented By: LUISA Carvedilol (Carvedilol 12.5 Mg Tablet) 12.5 mg PO BID [facility] Last Admin: 02/22/23 09:00 Dose: 12.5 mg Documented By: Admin: 02/21/23 21:09 Dose: 12.5 mg Documented By: Admin: 02/21/23 08:40 Dose: 12.5 mg Documented By: Admin: 02/20/23 20:55 Dose: 12.5 mg Documented By: Clopidogrel Bisulfate (Clopidogrel 75 Mg Tablet) 75 mg PO DAILY [facility] Last Admin: 02/22/23 08:59 Dose: 75 mg Documented By: Admin: 02/21/23 08:40 Dose: 75 mg Documented By: LUISA Heparin Sodium (Porcine) (Heparin 5,000 Unit/Ml Vial) 5,000 unit SUBCUT BID [facility] Last Admin: 02/22/23 09:00 Dose: 5,000 unit Documented By: Admin: 02/21/23 21:10 Dose: 5,000 unit Documented By: Admin: 02/21/23 08:41 Dose: 5,000 unit Documented By: Admin: 02/20/23 20:54 Dose: 5,000 unit Documented By: Sodium Chloride (Normal Saline 0.9%) 1,000 mls @ 1,000 mls/hr IV BOLUS ONE Stop: 02/20/23 11:36 Last Infusion: 02/20/23 12:05 Dose: 0 mls/hr Documented By: Admin: 02/20/23 11:02 Dose: 1,000 mls/hr Documented By: RAVEN Ceftriaxone Sodium 2,000 mg/ (Sodium Chloride) 100 mls @ 200 mls/hr IV NOW ONE Stop: 02/20/23 12:52 Last Infusion: 02/20/23 13:51 Dose: 0 mls/hr Documented By: Admin: 02/20/23 13:00 Dose: 200 mls/hr Documented By: RAVEN Sodium Chloride (Normal Saline 0.9%) 1,000 mls @ 100 mls/hr IV CONT [facility] Last Admin: 02/21/23 13:31 Dose: 100 mls/hr Documented By: Infusion: 02/21/23 11:54 Dose: 100 mls/hr Documented By: Admin: 02/21/23 01:54 Dose: 100 mls/hr Documented By: Infusion: 02/21/23 01:54 Dose: 100 mls/hr Documented By: Admin: 02/20/23 16:14 Dose: 100 mls/hr Documented By: KAITLIN Ceftriaxone Sodium 1,000 mg/ (Sodium Chloride) 100 mls @ 200 mls/hr IV Q24H [facility] Last Admin: 02/21/23 13:08 Dose: 200 mls/hr Documented By: LUISA Ceftriaxone Sodium 1,000 mg/ (Sodium Chloride) 100 mls @ 200 mls/hr IV Q24H [facility] Last Admin: 02/22/23 11:24 Dose: 200 mls/hr Documented By: LUISA Naloxone HCl (Naloxone 0.4 Mg/Ml Vial) 0.2 mg IV Q2MIN PRN PRN Reason: Opiate Reversal Ondansetron HCl (Ondansetron 4 Mg/2 Ml Inj) 4 mg IV Q8HR PRN PRN Reason: Nausea And Vomiting Pantoprazole Sodium (Pantoprazole Dr 40 Mg Tablet) 40 mg PO 0700,2100 [facility] Last Admin: 02/22/23 06:33 Dose: 40 mg Documented By: Admin: 02/21/23 21:10 Dose: 40 mg Documented By: Admin: 02/21/23 06:15 Dose: 40 mg Documented By: Admin: 02/20/23 20:55 Dose: 40 mg Documented By: Tramadol HCl (Tramadol 50 Mg Tablet) 50 mg PO QID PRN PRN Reason: Pain, Moderate (4-6) Vital Signs Vital signs: Vital Signs - 8 hr 02/20/23 09:18 Temperature 98.3 F Pulse Rate 80 Respiratory Rate 15 Blood Pressure 113/69 Pulse Oximetry 93 Oxygen Delivery Method Room Air MDM - Altered Mental Status Lab Data 02/21/23 06:17 02/21/23 06:17 Labs: Lab Results 02/20/23 02/20/23 02/20/23 Range/Units 09:54 09:54 09:54 WBC 13.3 H (4.5-11.0) X10^3/uL RBC 3.79 L (4.5-5.9) X10^6/uL Hgb 10.3 L (13.5-17.5) g/dL Hct 32.6 L (41-53) % MCV 86.0 (80-100) fL MCH 27.1 (26-34) PG MCHC 31.6 (30-36) % RDW 20.2 H (11.6-14.8) % Plt Count 243 (150-400) X10^3/uL Neut % (Auto) 69.7 (50-75) % Lymph % (Auto) 12.6 L (25-40) % Harvey % (Auto) 15.3 H (3-14) % Eos % (Auto) 2.0 (2-4) % Baso % (Auto) 0.4 (0-2) % Neut # (Auto) 9300 H (6338-5917) /uL Lymph # (Auto) 1700 (7682-2439) /uL Harvey # (Auto) 2000 H (0-900) /uL Eos # (Auto) 300 (0-450) /uL Baso # (Auto) 100 (0-100) /uL Platelet Estimate Adequate on smear RBC Morphology See below Anisocytosis 1+ H PT 14.0 H (10.1-12.7) SECONDS INR 1.2 (0.9-1.3) APTT 34 (26-36) SECONDS Sodium 140 (137-145) mmol/L Potassium 4.5 (3.4-5.1) mmol/L Chloride 106 (98-107) mmol/L Carbon Dioxide 23 (22-32) mmol/L BUN 45 H (9-20) mg/dL Creatinine 1.59 H (0.66-1.25) mg/dL Estimated GFR 44 L (>60) mL/min BUN/Creatinine Ratio 28.3 H (6-22) Glucose 115 H (80-110) mg/dL Calcium 9.5 (8.4-10.2) mg/dL Total Bilirubin 0.6 (0.2-1.3) mg/dL AST 31 (17-59) IU/L ALT 25 (<50) IU/L Alkaline Phosphatase 83 (38-126) U/L Total Creatine Kinase 212 H (55-170) U/L Troponin I < 0.012 (0.01-0.034) ng/mL Total Protein 8.5 H (6.3-8.2) g/dL Albumin 4.4 (3.5-5.0) g/dL Globulin 4.1 (1.7-4.1) g/dL Albumin/Globulin Ratio 1.1 (1.0-2.8) Urine Color Urine Appearance Urine pH (4.5-8.0) Ur Specific [place] (1.000-1.035) Urine Protein (Negative) Urine Glucose (UA) (Negative) g/dL Urine Ketones (NEGATIVE) Urine Occult Blood (Negative) Urine Nitrate (Negative) Urine Bilirubin (NEGATIVE) Urine Urobilinogen (0.2) E.U./dL Ur Leukocyte Esterase (NEGATIVE) Urine RBC (0-5/HPF) Urine WBC (0-5/HPF) Ur Squamous Epith Cells (0-5/HPF) Urine Bacteria (None) Ur Culture Indicated? 02/20/23 02/21/23 02/21/23 Range/Units 12:16 06:17 06:17 WBC 7.8 (4.5-11.0) X10^3/uL RBC 3.16 L (4.5-5.9) X10^6/uL Hgb 8.7 L (13.5-17.5) g/dL Hct 27.1 L (41-53) % MCV 85.7 (80-100) fL MCH 27.6 (26-34) PG MCHC 32.1 (30-36) % RDW 19.9 H (11.6-14.8) % Plt Count 189 (150-400) X10^3/uL Neut % (Auto) 58.1 (50-75) % Lymph % (Auto) 19.7 L (25-40) % Harvey % (Auto) 17.8 H (3-14) % Eos % (Auto) 3.4 (2-4) % Baso % (Auto) 1.0 (0-2) % Neut # (Auto) 4500 (2320-6006) /uL Lymph # (Auto) 1500 (7242-4287) /uL Harvey # (Auto) 1400 H (0-900) /uL Eos # (Auto) 300 (0-450) /uL Baso # (Auto) 100 (0-100) /uL Platelet Estimate RBC Morphology Anisocytosis PT (10.1-12.7) SECONDS INR (0.9-1.3) APTT (26-36) SECONDS Sodium 140 (137-145) mmol/L Potassium 4.1 (3.4-5.1) mmol/L Chloride 108 H (98-107) mmol/L Carbon Dioxide 25 (22-32) mmol/L BUN 35 H (9-20) mg/dL Creatinine 1.25 (0.66-1.25) mg/dL Estimated GFR 58 L (>60) mL/min BUN/Creatinine Ratio 28.0 H (6-22) Glucose 97 (80-110) mg/dL Calcium 8.6 (8.4-10.2) mg/dL Total Bilirubin (0.2-1.3) mg/dL AST (17-59) IU/L ALT (<50) IU/L Alkaline Phosphatase (38-126) U/L Total Creatine Kinase (55-170) U/L Troponin I (0.01-0.034) ng/mL Total Protein (6.3-8.2) g/dL Albumin (3.5-5.0) g/dL Globulin (1.7-4.1) g/dL Albumin/Globulin Ratio (1.0-2.8) Urine Color Yellow Urine Appearance Clear Urine pH 5.5 (4.5-8.0) Ur Specific [place] 1.010 (1.000-1.035) Urine Protein 1+ H (Negative) Urine Glucose (UA) Negative (Negative) g/dL Urine Ketones Negative (NEGATIVE) Urine Occult Blood 3+ H (Negative) Urine Nitrate Positive H (Negative) Urine Bilirubin Negative (NEGATIVE) Urine Urobilinogen 0.2 (0.2) E.U./dL Ur Leukocyte Esterase 2+ H (NEGATIVE) Urine RBC 5-10/hpf H (0-5/HPF) Urine WBC 30-100/hpf H (0-5/HPF) Ur Squamous Epith Cells 0-1 /hpf (0-5/HPF) Urine Bacteria Moderate (10-30) H (None) Ur Culture Indicated? Specimen cultured Urine Dip Bedside Urine Glucose Negative Bedside Urine Bilirubin - Negative Bedside Urine Ketone - Negative Urine Specific [place] 1.010 Bedside Urine Occult Blood +++ Bedside Urine pH 6.0 Bedside Urine Protein + 30 Bedside Urine Urobilinogen - Negative Bedside Urine Nitrite - Negative Bedside Urine Leukocytes +++ 500 Esterase Imaging Data CTA - brain/neck: Radiologist's Impression: [address] [address] [address] Scan Report Signed Patient: Hadley Wilkes MR#: [id number] : 1945 Acct:[id number] Age/Sex: 78 / M Date of Service: 02/20/23 Loc: ED Accession Number: [id number] ?? Procedure: CT angio head and neck Ordering Provider: Jose Carlos Conte MD PROCEDURE:? CT ANGIO HEAD AND NECK ? INDICATIONS:? HISTORY OF STROKE ? TECHNIQUE:? After the administration of intravenous contrast, 1 mm thick sections acquired from the aortic arch through the [place].? 3-dimensional wjerwlc-ajmbtokfl-sojxmtkdst (MIP) and/or volume rendering reformats were acquired of the central intracranial vasculature and neck separately. For radiation dose reduction, the following was used:? automated exposure control, adjustment of mA and/or kV according to patient size.? ? COMPARISON:? [facility], CT, CT HEAD/BRAIN WO CON, 02/20/2023, 10:05.? [facility], CT, CT ANGIO HEAD AND NECK, 07/30/2022, 13:20. ? FINDINGS:? Image quality:? Diagnostic.? ? BRAIN:? Limited visualization of brain as this is protocol for CTA.? Low-attenuation is present in the left frontal temporal lobe as identified on CT brain.? Atrophy and chronic microvascular ischemic changes are present. ? HEAD CT ANGIOGRAPHY:? Anterior circulation:? Intracranial internal carotid arteries are normal in size and flow.? The flow within the paired anterior cerebral arteries is normal and symmetric.? The flow within the middle cerebral arteries is normal and symmetric.? The anterior communicating artery is seen.? No aneurysms are seen.? ? Posterior circulation:? Vertebral arteries are codominant.? Visualized portions of the vertebral arteries demonstrate normal caliber, and join to form a normal ap pearing basilar artery.? Flow within the posterior cerebral arteries is normal and symmetric.? No aneurysms are seen.? ? NECK CT ANGIOGRAPHY:? Carotid system:? The great vessels demonstrate a conventional anatomy as they arise from the aortic arch.? The origins of the common carotid arteries appear patent.? The common carotid arteries demonstrate normal caliber and courses.? The bifurcation region s are both widely patent.? The internal carotid arteries demonstrate stable interval exam compared to prior exam demonstrating calcification at the origin.? There is approximate 50% narrowing on the right and 60-70% narrowing on the left. ? Posterior circulation:? The origins of the vertebral arteries both appear widely patent.? The more superior extracranial portions of both vertebral arteries also demonstrate normal courses and calibers.? They join to form a normal appearing basilar artery.? ? Soft tissues:? Visualized neck soft tissues demonstrate no suspicious abnormalities.? ? Bones:? No suspicious bony lesions.? Visualized cervical spine appears normally aligned.? IMPRESSION:? ? Low-attenuation left frontal temporal lobe suggestive of subacute ischemia.? No hemorrhage. ? No areas of hemodynamically significant stenosis, vascular occlusion or aneurysmal dilation within the anterior circulation. ? No areas of hemodynamically significant stenosis, vascular occlusion or aneurys mal dilation within the posterior circulation. ? 50% left and 60-70% right stenosis of the internal carotid arteries bilaterally, unchanged. ? Any quantitative measurements of stenosis were performed using NASCET criteria.? ? ? Dictated by: Shabnam Rudolph M.D. on 02/20/2023 at 12:09 ? ? Approved by: Shabnam Rudolph M.D. on 02/20/2023 at 12:11 ? CT scan - head: Radiologist's Impression: [address] [address] [address] Scan Report Signed Patient: Hadley Wilkes MR#: [id number] : 1945 Acct:[id number] Age/Sex: 78 / M Date of Service: 02/20/23 Loc: ED Accession Number: [id number] ?? Procedure: CT head/brain wo con Ordering Provider: Jose Carlos Conte MD PROCEDURE:? CT HEAD/BRAIN WO CON ? INDICATIONS:? Weakness ? TECHNIQUE:? Noncontrast 4.5 mm thick angled axial sections acquired from the foramen magnum to the vertex, with coronal and sagittal reformats.? For radiation dose reduction, the following was used:? automated exposure control, adjustment of mA and/or kV according to patient size.? ? COMPARISON:? [facility], CT, CT ANGIO HEAD AND NECK, 02/20/2023, 10:05.? [facility], CT, CT HEAD/BRAIN WO CON, 10/11/2022, 12:58. ? FINDINGS:? Image quality:? Excellent.? ? CSF spaces:? Basal cisterns are patent.? No extra-axial fluid collections.? The ventricles are symmetric in size and shape.? ? Brain:? No intracranial bleeds or masses.? There is cerebral volume loss for age, with resultant ventricular and sulcal prominence.? There is low attenuation within the left frontal temporal lobe which has developed since prior exam in 10/11/2022.? No hemorrhage within this region.? There are periventricular and deep white matter chronic small vessel ischemic changes.? There is intracranial internal carotid artery atherosclerosis.? ? Skull and face:? Calvarium and visualized facial bones appear intact, without suspicious lesions.? ? Sinuses:? Visualized sinuses and mastoids are clear.? ? IMPRESSION:? ? Low-attenuation within the left frontal temporal lobe possibly related to subacute/late subacute infarction.? As clinically indicated, MRI may be obtained for further evaluation.? No superimposed hemorrhage. ? Atrophy and chronic microvascular ischemic changes are present.? ? ? Dictated by: Shabnam Rudolph M.D. on 02/20/2023 at 10:38 ? ? Approved by: Shabnam Rudolph M.D. on 02/20/2023 at 10:47 ? MDM Narrative Medical decision making narrative: Patient brought in by ambulance from home for confusion and generalized weakness. Blood sugar 136. Patient has history stroke recently. Occurred while he was having watchman placed. Patient is on Plavix. Patient was sent to rehab after the stroke. While there he developed rectal bleeding and was sent here for admission and had endoscopy. He was discharged home from this facility after GI bleed admit. He did return again for admission for UTI. Last well kn own 9:00 p.m. last night. Patient stroke left him with speech problems. He is getting therapy. No limb complaints. He has baseline lower leg weakness which is not new he gets therapy for that. states he is ?out of it? and not himself. No slurred speech or facial droop. Fast exam is negative After history and exam CBC CMP troponin urinalysis CT head CT angiogram head and neck normal saline normal saline MDM CC: Altered mental Complicating co-morbidities: Recent stroke Data collected from: EMS as well as 1 Medical records reviewed: January 24, 2023 visit here Differential considered: Includes but not limited to stroke TIA UTI dehydration Exam documented above, pertinent findings include: No focal deficits Lab Test results independently reviewed as above. Pertinent findings: WBC 13.3 Sodium 140 potassium 4.5 BUN 45 creatinine 1.59 GFR 44 troponin less than 0.012 Independently reviewed EKG sinus rhythm rate [address] elevation or depression Imaging studies independently reviewed: CT head CT angiogram head and neck left frontal temporal lobe possibly related to subacute/late subacute infarction. Consultations: 1:45 p.m.. Spoke with hospitalist, dr shin, will admit Treatments: Rocephin normal saline Re-evaluations: Reviewed results with patient and . Agree for admission. Discussion: Appropriate for admission. Reviewed with patient and agree for admit. Reviewed hospitalist agrees for admit. Patient was nearly septic fr om UTI recently this early January/. With recent stroke would be prudent to have patient admitted as well. Antibiotics have been started. CT head findings likely from recent stroke/subacute from likely original stroke weeks ago. Management does not change at this time. Source of generalized weakness and confusion likely due to UTI. Antibiotics have been started Diagnosis: Acute UTI Discharge Plan Departure Patient Disposition: Admitted as Observation Clinical Impression: Acute UTI Admit Date/Time: 02/21/23 09:50 Admit Provider: Isaiah Shin
[2023-02-20 10:44] LABS: Anisocytosis 1+; Platelet Estimate Adequate on smear
[2023-02-20] MEDS: SODIUM CHLORIDE 0.9% 1,000 ML 1000 ML IV (11:02)
[2023-02-20 12:40] LABS: Appearance Urine UA CLEAR; Bilirubin Urine UA NEGATIVE (NEGATIVE); Color Urine UA YELLOW; Glucose Urine UA NEGATIVE (Negative); Ketones Urine UA NEGATIVE (NEGATIVE); Leukocyte Esterase Urine UA 2+ (NEGATIVE); Nitrite Urine UA POSITIVE (Negative); Occult Blood Urine UA 3+ (Negative); Protein Urine UA 1+ (Negative); Urobilinogen Urine UA 0.2 E.U./dL (0.2); pH Urine UA 5.5 (4.5-8.0)
[2023-02-20 12:57] LABS: Bacteria Urine Moderate (10-30); Culture Indicated Urine Specimen Cultured; RBC Urine 5-10/HPF (0-5/HPF); Squamous Epithelial Cell Urine 0-1 /HPF (0-5/HPF); WBC Urine 30-100/HPF (0-5/HPF)
[2023-02-20] MEDS: cefTRIAXone 2,000 MG in SODIUM CHLORIDE 0.9% 100 ML 200 MG IV (13:00)
--- NOTE | 2023-02-20 15:19 | PM.HP.1 ---
History of Present Illness History of Present Illness Date Patient Seen: 02/20/23 Time Patient Seen: 13:00 Chief complaint: General Weakness Narrative: Mr. 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 His is at bedside who provides much of the information. She noted that he has speech issues with aphasia since the stroke. He has been to multiple hospitals and rehabs recently for the above issues. Over the last day she noted he became more confused than normal and had a change in his urine symptoms. They did contact their PCP who checked a UA and diagnosed a UTI and he started taking antibiotics last night with one dose of bactrim. Overnight he was more confused so she brought him to the ED. In the ED workup was done, vitals notable for afebrile, heart rate 80s, blood pressure 110s/60s, sats 93% on room air. NIH 0 per ED. Labs reviewed by me and notable for WBC 13.3, hgb 10.3, plts 243. BUN 45, creatinine 1.59. Trop negative. UA reviewed by me and notable for blood, leuk esterase, wbcs, and moderate bacteria. Urine culture noted from 02/19 growing gram negative rods. CT head noted by radiologist to have low attenuation within left frontal lobe possibly related to subacute infarct with no hemorrhage noted. He was ordered for antibiotics and admitted for further treatment. [facility] Medical History Anemia Cerebrovascular disease Chronic anticoagulation Coronary artery disease Essential hypertension Gait instability Gout Hx of non-ST elevation myocardial infarction (NSTEMI) Kidney stones Low back pain Mixed hyperlipidemia Paroxysmal atrial fibrillation Primary osteoarthritis involving multiple joints Surgical History H/O lithotripsy Hx of appendectomy Hx of cardiac catheterization Family History Mother Renal cancer Father War operations involving destruction of aircraft due to collision with other aircraft, personnel, sequela Social History details: (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), 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 household members: spouse Smoking Status: Former smoker alcohol intake: former Meds Home Medications and Allergies Home Medications Medication Instructions Recorded Confirmed Type aspirin 81 mg tablet,delayed 81 mg PO DAILY 08/12/18 02/19/23 History release Resmed Airsense 10 CPAP #1 ea 04/29/19 02/19/23 History vit C 250 mg-vit E 200 unit-zinc 1 tab PO BID 10/04/20 02/19/23 History 12.5 mg-copper 1 [id number] tablet (ICaps AREDS2 (copper citrate)) losartan 100 mg tablet 100 mg PO DAILY #15 tabs 02/04/22 02/19/23 Rx allopurinol 300 mg tablet 300 mg PO DAILY #90 tabs 04/03/22 02/19/23 Rx carvedilol 12.5 mg tablet 12.5 mg PO BID 05/20/22 02/19/23 History hydrochlorothiazide 25 mg tablet 25 mg PO DAILY 05/20/22 02/19/23 History acetaminophen 325 mg tablet 650 mg PO .8HR PRN pain 08/23/22 02/19/23 History polyethylene glycol 3350 17 gram 17 gm PO DAILY #1 ea 01/28/23 02/19/23 Rx oral powder packet tramadol 50 mg tablet 50 mg PO Q6H PRN pain #30 tabs 01/28/23 02/19/23 Rx clopidogrel 75 mg tablet 75 mg PO DAILY 02/19/23 02/19/23 History sulfamethoxazole 800 1 tab PO BID #20 tabs 02/19/23 02/19/23 Rx mg-trimethoprim 160 mg tablet Allergies Allergy/AdvReac Type Severity Reaction Status Date / Time prednisone Allergy Severe Confusion Verified 02/20/23 09:30 celecoxib [From Celebrex] Allergy Intermediate Gastrointestinal Verified 02/20/23 09:30 Upset oxycodone [From Percocet] Allergy Intermediate Nausea Verified 02/20/23 09:30 [id number]-YVG-[id number] Reductase AdvReac Severe Autoimmune Verified 02/20/23 09:30 Inhibitor myositis [Wloupcm-Njx-Pss Reductase Inhibitor] codeine AdvReac Mild Redness of Verified 02/20/23 09:30 Skin icosapent ethyl AdvReac Mild Nausea Verified 02/20/23 09:30 Review of Systems Review of Systems Narrative: 14 systems reviewed and negative aside from what is noted in HPI Exam Vital Signs (past 8 hours): - 02/20/23 09:18 Temperature 98.3 F Pulse Rate 80 Respiratory Rate 15 Blood Pressure 113/69 Pulse Oximetry 93 Oxygen Delivery Method Room Air Oxygen Delivery Method Room Air Narrative Exam Narrative: GEN: no acute distress, difficulty speaking CV: regular rate and rhythm, no murmurs PULM: clear bilaterally, no wheezes, rhonchi, rales ABD: soft, nontender, nondistended, no organomegaly EXT: warm and well perfused, no edema NEURO: confused, difficulty with speech Objective Labs 02/20/23 09:54 02/20/23 09:54 Labs: Laboratory Results - last 24 hr 02/20/23 02/20/23 02/20/23 09:54 09:54 09:54 WBC 13.3 H RBC 3.79 L Hgb 10.3 L Hct 32.6 L MCV 86.0 MCH 27.1 MCHC 31.6 RDW 20.2 H Plt Count 243 Neut % (Auto) 69.7 Lymph % (Auto) 12.6 L [place] % (Auto) 15.3 H Eos % (Auto) 2.0 Baso % (Auto) 0.4 Neut # (Auto) 9300 H Lymph # (Auto) 1700 [place] # (Auto) 2000 H Eos # (Auto) 300 Baso # (Auto) 100 Platelet Estimate Adequate on smear RBC Morphology See below Anisocytosis 1+ H PT 14.0 H INR 1.2 APTT 34 Sodium 140 Potassium 4.5 Chloride 106 Carbon Dioxide 23 BUN 45 H Creatinine 1.59 H Estimated GFR 44 L BUN/Creatinine Ratio 28.3 H Glucose 115 H Calcium 9.5 Total Bilirubin 0.6 AST 31 ALT 25 Alkaline Phosphatase 83 Total Creatine Kinase 212 H Troponin I < 0.012 Total Protein 8.5 H Albumin 4.4 Globulin 4.1 Albumin/Globulin Ratio 1.1 Urine Color Urine Appearance Urine pH Ur Specific [place] Urine Protein Urine Glucose (UA) Urine Ketones Urine Occult Blood Urine Nitrate Urine Bilirubin Urine Urobilinogen Ur Leukocyte Esterase Urine RBC Urine WBC Ur Squamous Epith Cells Urine Bacteria Ur Culture Indicated? 02/20/23 12:16 WBC RBC Hgb Hct MCV MCH MCHC RDW Plt Count Neut % (Auto) Lymph % (Auto) [place] % (Auto) Eos % (Auto) Baso % (Auto) Neut # (Auto) Lymph # (Auto) [place] # (Auto) Eos # (Auto) Baso # (Auto) Platelet Estimate RBC Morphology Anisocytosis PT INR APTT Sodium Potassium Chloride Carbon Dioxide BUN Creatinine Estimated GFR BUN/Creatinine Ratio Glucose Calcium Total Bilirubin AST ALT Alkaline Phosphatase Total Creatine Kinase Troponin I Total Protein Albumin Globulin Albumin/Globulin Ratio Urine Color Yellow Urine Appearance Clear Urine pH 5.5 Ur Specific [place] 1.010 Urine Protein 1+ H Urine Glucose (UA) Negative Urine Ketones Negative Urine Occult Blood 3+ H Urine Nitrate Positive H Urine Bilirubin Negative Urine Urobilinogen 0.2 Ur Leukocyte Esterase 2+ H Urine RBC 5-10/hpf H Urine WBC 30-100/hpf H Ur Squamous Epith Cells 0-1 /hpf Urine Bacteria Moderate (10-30) H Ur Culture Indicated? Specimen cultured Assessment & Plan Assessment & Plan narrative: 1. Recurrent UTI with acute encephalopathy -follow up urine cultures -earlier this month had e. coli UTI sensitive to ceftriaxone, ordered ceftriaxone for now -bladder scan to evaluate if patient retaining, which may explain recurrence 2. Recent CVA with residual aphsia -CT read as possible subacute infarct -region appears consistent with recent stroke from last month -if does not resolve to baseline neurologically with treatment of infection, will order MRI -for now dual anti-platelet therapy -eliquis has been held for now, unfortunately has likely had embolic cva recently, but also has history of gi bleed and earlier this year subdural hemorrhage, risks and benefits are high regardless of treatment choice 3. Paroxysmal atrial fibrillation -continue home medications 4. Recent GI bleed -continue PPI 5. History of subdural hemorrhage -no evidence of hemorrhage on imaging I have discussed plan and obtained history from the patient and . I have discussed plan of care with ED physician and bedside nurse. I have reviewed labs, imaging, recent medical records. CODE: Full Proxy: Valery Wilkes, [facility] - Meds 'Current medications' to include all prescriptions, [id number] products, herbals, cannabis/cannabidiol products, and vitamin/mineral/dietary (nutritional) supplements. I have utilized all available resources to obtain, update, or review the patient?s current medications. [If Yes, STOP here]: Yes
[2023-02-20] MEDS: ACETAMINOPHEN 325 MG TABLET 650 MG PO (16:13)
[2023-02-20] MEDS: SODIUM CHLORIDE 0.9% 1,000 ML 100 ML IV (16:14)
[2023-02-20] MEDS: HEPARIN 5,000 UNIT/ML VIAL 5000 UNIT SUBCUT (20:54)
[2023-02-20] MEDS: carvediloL 12.5 MG TABLET PO (20:55)
[2023-02-20] MEDS: PANTOPRAZOLE DR 40 MG TABLET PO (20:55)
[2023-02-21 01:00] VITALS: BP 132/72; PULSE 74; RESP 17; TEMP 37.2; O2SAT 94
[2023-02-21] MEDS: ACETAMINOPHEN 325 MG TABLET 650 MG PO ×2 (01:31→13:31)
[2023-02-21] MEDS: SODIUM CHLORIDE 0.9% 1,000 ML 100 ML IV ×2 (01:54→13:31)
[2023-02-21 06:00] VITALS: BP 118/68; PULSE 66; RESP 19; TEMP 36.3; O2SAT 95
[2023-02-21] MEDS: PANTOPRAZOLE DR 40 MG TABLET PO ×2 (06:15→21:10)
[2023-02-21 06:34] LABS: Add Manual Diff / Slide Review NO; Basophils Absolute Auto 100 /uL (0-100); Eosinophils Absolute Auto 300 /uL (0-450); Eosinophils Percent Auto 3.4 % (2-4); Hematocrit 27.1 % (41-53); Hemoglobin 8.7 g/dL (13.5-17.5); Lymphocytes Absolute Auto 1500 /uL (1100-4500); Lymphocytes Percent Auto 19.7 % (25-40); Mean Corpuscular HGB Conc 32.1 % (30-36); Mean Corpuscular Hemoglobin 27.6 PG (26-34); Mean Corpuscular Volume 85.7 fL (80-100); Monocytes Absolute Auto 1400 /uL (0-900); Monocytes Percent Auto 17.8 % (3-14); Neutrophils Absolute Auto 4500 /uL (1500-7000); Neutrophils Percent Auto 58.1 % (50-75); Platelet Count 189 X10^3/uL (150-400); Red Blood Cell Count 3.16 X10^6/uL (4.5-5.9); Red Cell Distribution Width 19.9 % (11.6-14.8); White Blood Cell Count 7.8 X10^3/uL (4.5-11.0)
[2023-02-21 06:48] LABS: Blood Urea Nitrogen 35 mg/dL (9-20); Calcium 8.6 mg/dL (8.4-10.2); Carbon Dioxide 25 mmol/L (22-32); Chloride 108 mmol/L (98-107); Estimated Glomerular Filt Rate 58 mL/min (>60); Glucose 97 mg/dL (80-110); HEMOLYSIS < 15 (0-50); Potassium 4.1 mmol/L (3.4-5.1); Sodium 140 mmol/L (137-145)
[2023-02-21 08:00] VITALS: BP 135/72; PULSE 69; RESP 16; TEMP 36.3; O2SAT 94
[2023-02-21] MEDS: carvediloL 12.5 MG TABLET PO ×2 (08:40→21:09)
[2023-02-21] MEDS: ASPIRIN EC 81 MG TABLET PO (08:40)
[2023-02-21] MEDS: CLOPIDOGREL 75 MG TABLET PO (08:40)
[2023-02-21] MEDS: HEPARIN 5,000 UNIT/ML VIAL 5000 UNIT SUBCUT ×2 (08:41→21:10)
[2023-02-21] MEDS: cefTRIAXone 1,000 MG in SODIUM CHLORIDE 0.9% 100 ML 200 MG IV (13:08)
[2023-02-21 14:00] VITALS: BP 112/67; PULSE 67; RESP 16
--- NOTE | 2023-02-21 15:40 | OT.IP.EVAL ---
Current Diagnoses Urinary tract infection, site not specified (02/21/23) Past Medical History (Last Reviewed 02/20/23 @ 15:19 by Isaiah Cerrato MD) Anemia Cerebrovascular disease Chronic anticoagulation Coronary artery disease Essential hypertension Gait instability Gout Hx of non-ST elevation myocardial infarction (NSTEMI) Kidney stones Low back pain Mixed hyperlipidemia Paroxysmal atrial fibrillation Primary osteoarthritis involving multiple joints Surgical History (Last Reviewed 02/20/23 @ 15:19 by Isaiah Cerrato MD) H/O lithotripsy Hx of appendectomy Hx of cardiac catheterization Occupational Therapy Inpatient Evaluation/Re-Eval M1 PT/OT-IP Prior Functional Status Start: 02/21/23 16:00 Freq: NEEDED Status: Active Protocol: Document 02/21/23 14:45 [facility] (Rec: 02/21/23 16:25 [facility] [id number]) Medical Review Prior Functional Status Communication Pt has expressive aphasia and at times able to get some words out. Mobility and Gait Pt was using a FWW to get around in his house. Activities of Daily Living and IADL's Pt needing assist for bathing from his in addition for LB dressing . Prior Functional Level (Other details) Pt is very supportive and able to assist pt for his needs especially for dressing, completeness for toileting, bathing, and IADl needs. Social History Household Members spouse Living Arrangements House Number of Floors (Floors) Two Floors Number of Stairs To Enter/Railing? 1 step with bilataral rails Pt has a chair lift to get to the 2nd floor where his bedroom is at. Home Environment High Toilet,Walk in Shower Home Equipment Front Wheel Walker,Four Wheel Walker,Straight Cane,Shower Seat with Backrest,Hand Held Shower,Lift Recliner,Grab Bars Near Toilet,Grab Bars In Shower Additional Social History Comment Pt has an adjustable bed M2 OT-IP Current Condition Start: 02/21/23 16:00 Freq: Status: Active Protocol: Document 02/21/23 14:45 [facility] (Rec: 02/21/23 16:25 [facility] [id number]) Occupational Therapy Current Condition Current Condition Evaluation Date 02/21/23 Treatment Diagnosis UTI Diagnosis Onset Date 02/20/23 M3 OT- IP Subjective and Pain Start: 02/21/23 16:00 Freq: Status: Active Protocol: Document 02/21/23 14:45 [facility] (Rec: 02/21/23 16:25 [facility] [id number]) OT- Subjective Occupational Therapy Visit Type Type Initial Evaluation Visit Start Time 14:45 Visit Stop Time 15:40 Total Visit Minutes 55 Occupational Therapy Visit Comments Patient Comments Pt agreed to get up and pt's in the room. Patient/Caregiver Goals Pt wanting to go home. OT Pain Assessment Pain When Pain Assessed During Mobility Pain Present Pain Present Pain Reported Location Right Shoulder Pain Behaviors Facial Grimacing,Guarding, Holding Area M4 OT- IP ADL's Start: 02/21/23 16:00 Freq: Status: Active Protocol: Document 02/21/23 14:45 [facility] (Rec: 02/21/23 16:25 [facility] [id number]) OT [id number]-Heajnvo Comments OT Self-Feeding Comments Not at meal time. OT ADL-Grooming Comments OT Grooming Comments Pt able to wash his face after set-up. OT ADL-Oral Care Comments Oral Care Comments Not performed. OT ADL-Dressing General Eval Lower Body Dressing Ability Maximum Assistance Comments OT Dressing Comments Assist for sock. OT ADL-Toileting General Evaluation Toileting Ability Total Assistance Comments OT Toileting Comments Pt has a external catheter on at this time. OT ADL-Bathing General Evaluation Bathing Ability Moderate Assistance,Maximal Assistance Comments OT Bathing Comments Pt able to wash his face and under his armpits with assist to help lift his RUE up. Pt needing assist for his back. M5 OT- IP IADL's Start: 02/21/23 16:00 Freq: Status: Active Protocol: Document 02/21/23 14:45 [facility] (Rec: 02/21/23 16:25 [facility] [id number]) OT-Instrumental Activities of Daily Living Deficits IADL Deficits Identified Deficits Home Safety Awareness Home Safety Comments Pt has a supportive to be able to asisst with pt's needs at home. Medication Management Medication Management Caregiver Administers Money Management Money Management Caregiver Provides Assistance Meal Preparation Meal Preparation Caregiver Provides Assist Frame Opener Frame Opener Caregiver Provides Assist M6 OT- IP Functional Cognition Start: 02/21/23 16:00 Freq: Status: Active Protocol: Document 02/21/23 14:45 [facility] (Rec: 02/21/23 16:25 [facility] [id number]) Cognitive Factors Limiting Selfcare Function Cognitive Ability Level of Alertness Alert Patient Orientation Name Attention Span Ability Capable of Focused Attention, Capable of Sustained Attention Ability to Follow Commands Able to Follow One Step Commands Cognitive Comments Cognitive Assessment Comments Pt has expressive aphasia, able to follow commands for ADL and mobility needs. At times pt benefits from visual cues. Pt needing vc for hand placement to push up from the bed to stand. OT- Vision and Hearing OT- Vision Assessment Vision Assessment Comments Pt wears reading glasses, but does not wear them. Pt not complaining of any blurred or double vision at this time. M7 OT- IP Mobility and Balance Start: 02/21/23 16:00 Freq: Status: Active Protocol: Document 02/21/23 14:45 [facility] (Rec: 02/21/23 16:25 [facility] [id number]) OT- Bed Mobility Assessment Supine to Sit Supine to Sit Assist Moderate Assistance Sit to Supine Sit to Supine Assist Moderate Assistance Scooting Scooting to Edge of Bed Moderate Assistance OT-Transfer Assessment Sit to and From Stand Sit to and from Stand Minimal Assistance,1 Person Assistance Technique Transfer Technique Stand Step Pivot Devices Transfer Assistive Devices Gait Belt,Front Wheeled Walker Comments Mobility Comments Pt needing assist to help get his trunk upright when in sidelying. EBENEZER x1 to stand from hi bed raised up. EBENEZER x1 with bariatric FWW to side step to the head of the bed. Second person for safety as pt is a tall and big letitia. Surfaces have to be very high in order to pt to come to stand, or definitely needing a second person to assist. OT- Balance Assessment Sitting Balance and Reactions Static Sitting Balance Ability Good Dynamic Sitting Balance Ability Fair Standing Balance and Reactions Static Standing Balance Ability Fair Dynamic Standing Balance Ability Fair M8 OT- IP Objective Assessments Start: 02/21/23 16:00 Freq: Status: Active Protocol: Document 02/21/23 14:45 [facility] (Rec: 02/21/23 16:25 [facility] [id number]) OT Gross Range of Motion Upper Extremity Range of Motion Assessment Right Impaired OT Strength Upper Extremity Strength Assessment Right Impaired Comments Strength Comments LUE 4/5, RUE NT at shoulder due to pain, elbow to distal 3 +/5 M9 OT- IP Assessment and Plan Start: 02/21/23 16:00 Freq: Status: Active Protocol: Document 02/21/23 14:45 [facility] (Rec: 02/21/23 16:25 [facility] [id number]) OT Summary Assessment and Plan Potential Rehabilitation Potential Good Analytic Complexity at Evaluation Moderate Summary OT Impairments Pain,Range of Motion,Strength, Balance,Functional Mobility, Dressing,Toileting,Bathing, Toilet Transfers,Shower Transfers Progress Towards Goals Progressing Toward Goals,Slow Progress due to Pain Assessment Summary Pt MOD complexity due to pain and able to stand from hi bed with one person. Pt set-up at home is all high surfaces and pt sleeps in a lift recliner. Pt to go home with assist from and home health. Goals Self-Feeding Goal Independent Grooming Goal Independent Dressing Goal Standby Assistance Toileting Goal Standby Assistance Bathing Goal Minimal Assistance Toilet Transfer Goal Standby Assistance Shower Transfer Goal Standby Assistance Days to Meet Goals 10 Frequency of Treatment Frequency Of Treatment Once a Day Treatment Plan OT Treatment Plan ADL Training,Functional Mobility,Patient/Family Education,Discharge Planning Discharge Recommendations OT Discharge Recommendations Home with Assistance,Home Health Transportation Needs at Discharge Private Vehicle,Wheelchair/ Cabulance
--- NOTE | 2023-02-21 15:40 | PT.IIE ---
Current Diagnoses Urinary tract infection, site not specified (02/21/23) Surgical History (Last Reviewed 02/20/23 @ 15:19 by Isaiah Cerrato MD) H/O lithotripsy Hx of appendectomy Hx of cardiac catheterization Medical History (Last Reviewed 02/20/23 @ 15:19 by Isaiah Cerrato MD) Anemia Cerebrovascular disease Chronic anticoagulation Coronary artery disease Essential hypertension Gait instability Gout Hx of non-ST elevation myocardial infarction (NSTEMI) Kidney stones Low back pain Mixed hyperlipidemia Paroxysmal atrial fibrillation Primary osteoarthritis involving multiple joints Physical Therapy Inpatient Evaluation/Re-Eval M1 PT/OT-IP Prior Functional Status Start: 02/21/23 16:00 Freq: NEEDED Status: Active Protocol: Document 02/21/23 15:40 DLM (Rec: 02/21/23 17:15 DLM [id number]) Medical Review Prior Functional Status Medical History Reviewed Yes Diet/Fluid Consistency Regular Communication Pt has expressive aphasia and at times able to get some words out. Mobility and Gait Pt was using a FWW to get around in his house. He uses two canes to ambulate in the garage to the car. They have FWW's on each level of house. Uses chair lift on the stairs to the second level. Able to get up/down the steps to the garage with rails. His provides supervision during most mobility for safety. Activities of Daily Living and IADL's Pt needing assist for bathing for his in addition for LB dressing. He often sleeps in the recliner. Prior Functional Level (Other details) Pt is very supportive and able to assist pt for his needs esepcially for dressing, completeness for toileting, bathing, and IADl needs. Social History Household Members spouse Living Arrangements House Number of Floors (Floors) Two Floors Number of Stairs To Enter/Railing? 1 step with bilateral rails from garage Pt has a chair lift to get to the 2nd floor where his bedroom is at. Home Environment High Toilet,Walk in Shower Home Equipment Front Wheel Walker,Four Wheel Walker,Straight Cane,Shower Seat with Backrest,Hand Held Shower,Lift Recliner,Grab Bars Near Toilet,Grab Bars In Shower Employment Status Retired Additional Social History Comment Pt has an adjustable bed His reports he has been using chairs 30 inches tall. M2 PT-IP Current Condition Start: 02/21/23 13:22 Freq: NEEDED Status: Active Protocol: Document 02/21/23 15:40 DLM (Rec: 02/21/23 17:15 DL [id number]) Physical Therapy Current Condition Current Condition Evaluation Date 02/21/23 Treatment Diagnosis UTI, weakness, impaired gait Onset Date 02/21/23 M3 PT-IP Subjective Start: 02/21/23 13:22 Freq: NEEDED Status: Active Protocol: Document 02/21/23 15:40 DLM (Rec: 02/21/23 17:15 [facility] [id number]) Subjective Physical Therapy Visit Type Type Initial Evaluation Visit Start Time 14:45 Visit Stop Time 15:40 Total Visit Minutes 55 Number of NEGATIVE ASSEMBLER Visits 0 Physical Therapy Visit Comments Patient Comments He feels tired. Patient Goals Discharge home with his and ongoing therapy Therapy Pain Assessment Pain When Pain Assessed During Mobility Pain Present Pain Present Pain Reported Location Right Shoulder Scale Used pt unable to rate Description Aching Pain Behaviors Facial Grimacing Pain Management Techniques Re-positioning Lower Back Scale Used pt unable to rate Description Aching,With Movement Pain Behaviors Moaning Pain Management Techniques Modification of Treatment,Re- positioning M4 PT-IP Mobility and Gait Start: 02/21/23 13:22 Freq: NEEDED Status: Active Protocol: Document 02/21/23 15:40 DLM (Rec: 02/21/23 17:15 [facility] [id number]) PT-Bed Mobility Assessment Rolling Type of Rolling Roll to Left Level of Assist Contact Guard Assistance, Minimal Assistance Supine to Sit Supine to Sit Moderate Assistance,Bedrails Sit to Supine Sit to Supine Moderate Assistance,Head of Bed Elevated,Bedrails Scooting Scooting to Edge of Bed Maximum Assistance PT-Transfer Assessment Sit to and From Stand Sit to and from Stand Minimal Assistance,Use of Upper Extremities Equipment Transfer Assistive Device Gait Belt,Front Wheeled Walker Comments Mobility Comments Pt needs the bed tall for sit- stand. He uses bed rails to assist with bed mobility. He needs assist for LE's and trunk for supine to sit and only assist for LE's for supine-sit. He has back pain with lying flat and needs head of bed elevated quickly to manage his back pain getting back into bed. Pt has been sleeping in recliner at home. A second person was present during mobility to manage his fall risks. Gait Assessment Gait Gait Assistance Required: Contact Guard Assist Distance (Feet) 8 Assistive Devices Assistive Device Gait Belt,Front Wheeled Walker Gait Deviations General Gait Pattern Flexed Trunk Factors Limiting Gait Function Factors Limiting Gait Function Decreased Activity Tolerance, Decreased Strength,Pain Comments Gait Comments He demonstrates good weight bearing on his LE's in standing. His trunk got more erect as he was in standing. His distance of gait was limited by fatigue today. Pt using bariatric FWW for safety . A second person assisted with gait training with Contact guard assist to manage his fall risks. PT-Balance Assessment Sitting Balance and Reactions Static Sitting Balance Ability Good Dynamic Sitting Balance Ability Good Standing Balance and Reactions Static Standing Balance Ability Good Dynamic Standing Balance Ability Fair Device Used FWW M5 PT-IP Objective Assessments Start: 02/21/23 13:22 Freq: NEEDED Status: Active Protocol: Document 02/21/23 15:40 DLM (Rec: 02/21/23 17:15 DL [id number]) Orientation Orientation/Cognition Level of Alertness Alert Language Function Ability Expressive Aphasia Safety Awareness Understands Safety Issues Comments he is able to express some words Gross Range of Motion Upper Extremity ROM Assessment Right Impaired Impairments pain with right shoudler ROM, see OT notes Lower Extremity ROM Assessment Within Functional Limits Strength Upper Extremity Strength Assessment Right Impaired Shoulder pain limits functional use Lower Extremity Strength Assessment Bilaterally Impaired Comments Strength Comments generalized weakness in LE's, able to bear weight for standing Coordination Assessment Gross Coordination Gross Coordination WNL Sensation Assessment Comments Sensation Comments no numbness reported, his impaired speech complicates testing Muscle Tone Muscle Tone WNL Yes M6 PT-IP Treatment Start: 02/21/23 13:22 Freq: NEEDED Status: Active Protocol: Document 02/21/23 15:40 DLM (Rec: 02/21/23 17:15 DL [id number]) Physical Therapy Treatment Exercises Exercises Ankle Pumps,Seated Knee Flexion/Extension Education Education Provided Safety Other Treatments Other Treatment Performed His is present this visit and assisted with baseline information A second person was used during all mobility to manage his fall risks. M7 PT-IP Assessment and Plan Start: 02/21/23 13:22 Freq: NEEDED Status: Active Protocol: Document 02/21/23 15:40 DLM (Rec: 02/21/23 17:15 DL [id number]) PT Summary Assessment and Plan Goals Bed Mobility Goal Minimal Assistance Transfer Goal Contact Guard Assistance, Minimal Assistance,Front Wheeled Walker Gait Goal Contact Guard Assistance, Minimal Assistance,Front Wheel Walker Gait Distance 50 feet Days to Meet Goals 4 Frequency of Treatment Frequency Of Treatment Once a Day Treatment Plan Physical Therapy Treatment Plan Bed Mobility Training,Transfer Training,Gait Training, Therapeutic Exercise,Balance Retraining,Discharge Planning, Neuromuscular Re-ed Other Recommendations and Next Treatment work with his to Focus determine safe home transportation Precautions Other Precautions fall risk, manage right shoulder and low back pain Condom catheter in place at this time Recommendations To Nursing Amount of Assist Needed 2 Person Assist Discharge Recommendations PT Discharge Recommendations Home with Assistance,Home Health Other Discharge Recommendations His assists him at home, resume PT/OT/ST at home Transportation Needs at Discharge Private Vehicle,Wheelchair/ Cabulance
--- NOTE | 2023-02-21 16:22 | P.PN_ITS ---
Subjective Subjective Date Patient Seen: 01/27/23 Interval history: 78 M with recent admission for GIB and duodenal ulcer, CVA, and recent UTI admission, re-admitted with UTI. He is improved today according to patient, continues to have difficulty with speech from his CVA. Exam Vital Signs (past 8 hours): - 02/21/23 14:00 Pulse Rate 67 Respiratory Rate 16 Blood Pressure 112/67 Oxygen Delivery Method Room Air Oxygen Flow Rate 0 Narrative Exam Narrative: GEN: no acute distress, difficulty speaking CV: regular rate and rhythm, no murmurs PULM: clear bilaterally, no wheezes, rhonchi, rales ABD: soft, nontender, nondistended, no organomegaly EXT: warm and well perfused, no edema NEURO: confused, difficulty with speech Objective Labs 02/21/23 06:17 02/21/23 06:17 Labs: Laboratory Results - last 24 hr 02/21/23 02/21/23 06:17 06:17 WBC 7.8 RBC 3.16 L Hgb 8.7 L Hct 27.1 L MCV 85.7 MCH 27.6 MCHC 32.1 RDW 19.9 H Plt Count 189 Neut % (Auto) 58.1 Lymph % (Auto) 19.7 L Navarro % (Auto) 17.8 H Eos % (Auto) 3.4 Baso % (Auto) 1.0 Neut # (Auto) 4500 Lymph # (Auto) 1500 Navarro # (Auto) 1400 H Eos # (Auto) 300 Baso # (Auto) 100 Sodium 140 Potassium 4.1 Chloride 108 H Carbon Dioxide 25 BUN 35 H Creatinine 1.25 Estimated GFR 58 L BUN/Creatinine Ratio 28.0 H Glucose 97 Calcium 8.6 PFSH Medical History Anemia Cerebrovascular disease Chronic anticoagulation Coronary artery disease Essential hypertension Gait instability Gout Hx of non-ST elevation myocardial infarction (NSTEMI) Kidney stones Low back pain Mixed hyperlipidemia Paroxysmal atrial fibrillation Primary osteoarthritis involving multiple joints Surgical History H/O lithotripsy Hx of appendectomy Hx of cardiac catheterization Family History Mother Renal cancer Father War operations involving destruction of aircraft due to collision with other aircraft, personnel, sequela Social History details: (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 Sepsis secondary to Recurrent UTI with acute encephalopathy and DEMETRICE -follow up urine cultures -earlier this month had e. coli UTI sensitive to ceftriaxone, ordered ceftriaxone for now -bladder scan to evaluate if patient retaining, which may explain recurrence -Presented with acute encephalopathy and DEMETRICE with SOFA of 2. Creatinine improving today. Will obtain renal ultrasound to rule out any obstructive component. 2. Recent CVA with residual aphsia -CT read as possible subacute infarct -region appears consistent with recent stroke from last month -given improving mentation today will presume encephalopathy compared to new infarct. -continue dual anti-platelet therapy -amiequis has been given recent bleeding, unfortunately has likely had embolic cva recently, but also has history of gi bleed and earlier this year subdural hemorrhage, risks and benefits are high regardless of treatment choice 3. Paroxysmal atrial fibrillation -continue home medications 4. Recent GI bleed -continue PPI 5. History of subdural hemorrhage -no evidence of active hemorrhage on imaging Discussed with staff today and patient. Dispo: refused acute rehab last admission, likely to return home with home health. Discussed with prior hospitalist as well. CODE: Full Proxy: Valery Wilkes, Quality VTE Deep Vein Thrombosis/Pulmonary Embolism Present on Admission: No
--- NOTE | 2023-02-21 16:28 | DI.US.S_ITS ---
PROCEDURE: US RENAL COMPLETE INDICATIONS: ACUTE KIDNEY INJURY TECHNIQUE: Real-time scanning was performed of the kidneys and bladder, with image documentation. COMPARISON: [facility], CT, CT ABDOMEN PELVIS W CON, 01/24/2023, 20:43. [facility], US, US RENAL COMPLETE, 07/30/2022, 21:52. FINDINGS: Kidneys: Kidneys are normal in size. Right kidney measures 14.4 cm long; left kidney measures 13.8 cm long. Right renal cortical thickness is 1 cm; left renal cortical thickness is 1.4 cm. Renal cortical echotexture is normal. No hydronephrosis. No suspicious solid mass lesions. Numerous kidney stones are seen, with the largest on the right measuring 6 mm and the largest on the left measuring 8 mm. Left-sided renal cysts are seen, with the largest measuring 3.5 cm. Bladder: A Young catheter is seen, which decompresses the bladder. Miscellaneous: No free pelvic fluid. This study is limited by body habitus and patient immobility. IMPRESSION: No hydronephrosis is seen on either side. Nonobstructing bilateral renal stones are seen. Simple left renal cysts seen. Dictated by: Donnell Yeboah M.D. on 02/21/2023 at 17:27 Approved by: Donnell Yeboah M.D. on 02/21/2023 at 17:29
[2023-02-21 20:10] VITALS: BP 116/51; PULSE 68; RESP 16; TEMP 36.8; O2SAT 95
[2023-02-21 21:09] VITALS: BP 116/51; PULSE 68
[2023-02-22 04:15] VITALS: BP 141/71; PULSE 71; RESP 16; TEMP 36.9; O2SAT 94
[2023-02-22] MEDS: PANTOPRAZOLE DR 40 MG TABLET PO (06:33)
[2023-02-22] MEDS: CLOPIDOGREL 75 MG TABLET PO (08:59)
[2023-02-22] MEDS: ASPIRIN EC 81 MG TABLET PO (08:59)
[2023-02-22] MEDS: HEPARIN 5,000 UNIT/ML VIAL 5000 UNIT SUBCUT (09:00)
[2023-02-22] MEDS: carvediloL 12.5 MG TABLET PO (09:00)
--- NOTE | 2023-02-22 10:41 | PT.IPTN ---
Current Diagnoses Urinary tract infection, site not specified (02/21/23) Physical Therapy Treatment Note M2 PT-IP Current Condition Start: 02/21/23 13:22 Freq: NEEDED Status: Active Protocol: Document 02/21/23 15:40 DLM (Rec: 02/21/23 17:15 DLM [id number]) Physical Therapy Current Condition Current Condition Evaluation Date 02/21/23 Treatment Diagnosis UTI, weakness, impaired gait Onset Date 02/21/23 M3 PT-IP Subjective Start: 02/21/23 13:22 Freq: NEEDED Status: Active Protocol: Document 02/22/23 11:37 TS (Rec: 02/22/23 12:06 TS [id number]) Subjective Physical Therapy Visit Type Type Treatment Note Visit Start Time 10:41 Visit Stop Time 11:19 Total Visit Minutes 38 Number of ORACLE APEX DEVELOPER Visits 1 Physical Therapy Visit Comments Patient Comments Pt reports needing to use commode, agreeable to PT. Patient Goals Discharge home with his and ongoing therapy Therapy Pain Assessment Pain When Pain Assessed During Mobility Pain Present Pain Present Pain Reported M4 PT-IP Mobility and Gait Start: 02/21/23 13:22 Freq: NEEDED Status: Active Protocol: Document 02/22/23 11:37 TS (Rec: 02/22/23 12:06 TS [id number]) PT-Bed Mobility Assessment Rolling Type of Rolling Roll to Left Level of Assist Contact Guard Assistance, Minimal Assistance Supine to Sit Supine to Sit Minimal Assistance,Bedrails Sit to Supine Sit to Supine Minimal Assistance Scooting Scooting to Edge of Bed Standby Assistance PT-Transfer Assessment Sit to and From Stand Sit to and from Stand Minimal Assistance,Use of Upper Extremities Equipment Transfer Assistive Device Gait Belt,Front Wheeled Walker Comments Mobility Comments Second person was present for mobility to minimize risk. Supine to sit Boyd with BUE support coming into sitting. He scooted to EOB SBA with BUE support on bed, cued pt for feet on floor. Sit to stand from elevated bed due to pt's size, required Boyd, pt self- cued for pushing from bed with BUE support. He performed stand step pivot transfer to commode, requires max cueing for slow eccentric control onto commode. Sit to stand from commode for pericare Boyd with cues for pushing off arms of chair to come into standing. Pt sat back on bed for brief rest break. Pt performed sit to stand from bed for pivot into elevated chair Boyd, pt requires use of foot stool to sit fully back into chair. Sit to stand from elevated chair Boyd w/FWW, pt performed stand pivot again back to bed for naother rest break. He agreed to ambulate in room ~20', pt is unsteady and heavily uses UEs on FWW for support. Pt became fatgiued with gait and sat EOB . Sit to supine Boyd for LEs inot bed, pt cued for logroll for decreased pain in back, HOB elevated for support, pt does not like to be completely flat. Discussed plan for getting into car when discharging, pt and spouse are comfortable with plan. Pt was left in bed with call light nearby, all needs met, spouse in room, RN notified. Gait Assessment Gait Gait Assistance Required: Contact Guard Assist Distance (Feet) 20 Assistive Devices Assistive Device Gait Belt,Front Wheeled Walker Gait Deviations General Gait Pattern Flexed Trunk Factors Limiting Gait Function Factors Limiting Gait Function Decreased Activity Tolerance, Decreased Strength,Pain Comments Gait Comments Pt fatigues quickly with gait and has some SOB. PT-Balance Assessment Sitting Balance and Reactions Static Sitting Balance Ability Good Dynamic Sitting Balance Ability Good Standing Balance and Reactions Static Standing Balance Ability Good Dynamic Standing Balance Ability Fair Device Used FWW M5 PT-IP Objective Assessments Start: 02/21/23 13:22 Freq: NEEDED Status: Active Protocol: Document 02/21/23 15:40 DLM (Rec: 02/21/23 17:15 DLM [id number]) Orientation Orientation/Cognition Level of Alertness Alert Language Function Ability Expressive Aphasia Safety Awareness Understands Safety Issues Comments he is able to express some words Gross Range of Motion Upper Extremity ROM Assessment Right Impaired Impairments pain with right shoudler ROM, see OT notes Lower Extremity ROM Assessment Within Functional Limits Strength Upper Extremity Strength Assessment Right Impaired Shoulder pain limits functional use Lower Extremity Strength Assessment Bilaterally Impaired Comments Strength Comments generalized weakness in LE's, able to bear weight for standing Coordination Assessment Gross Coordination Gross Coordination WNL Sensation Assessment Comments Sensation Comments no numbness reported, his impaired speech complicates testing Muscle Tone Muscle Tone WNL Yes M6 PT-IP Treatment Start: 02/21/23 13:22 Freq: NEEDED Status: Active Protocol: Document 02/22/23 11:37 TS (Rec: 09/02/23 12:06 TS [id number]) Physical Therapy Treatment Education Education Provided Safety M7 PT-IP Assessment and Plan Start: 02/21/23 13:22 Freq: NEEDED Status: Active Protocol: Document 02/22/23 11:37 TS (Rec: 02/22/23 12:06 TS [id number]) PT Summary Assessment and Plan Potential Rehabilitation Potential Good Summary Progress Towards Goals Progressing Toward Goals Assessment Summary Pt made some progress with his mobility this session. He progressed his bed mobility to Boyd, pt requires some assistance getting LEs in/out of bed. He performed sit to stand ~x5 with Boyd and use of FWW, does require some cueing for handplacement and sit to stand technique. He progressed his ambulation to ~20'CGA with use of FWW, pt does continue to fatigue with short distances, educated pt/spouse on being cautious, keeping chairs nearby when pt is performing mobility. Practiced getting into/out of elevated chair that will be used to get pt to car, pt did well and agreed to using chair to get into car when d/c. PT continues to recommend home w/ assist and HHPT. Goals Bed Mobility Goal Minimal Assistance Transfer Goal Contact Guard Assistance, Minimal Assistance,Front Wheeled Walker Gait Goal Contact Guard Assistance, Minimal Assistance,Front Wheel Walker Gait Distance 50 feet Days to Meet Goals 4 Frequency of Treatment Frequency Of Treatment Once a Day Treatment Plan Physical Therapy Treatment Plan Bed Mobility Training,Transfer Training,Gait Training, Therapeutic Exercise,Balance Retraining,Discharge Planning, Neuromuscular Re-ed Other Recommendations and Next Treatment work with his to Focus determine safe home transportation Precautions Other Precautions fall risk, manage right shoulder and low back pain Condom catheter in place at this time Recommendations To Nursing Amount of Assist Needed 2 Person Assist Discharge Recommendations PT Discharge Recommendations Home with Assistance,Home Health Other Discharge Recommendations His assists him at home, resume PT/OT/ST at home Transportation Needs at Discharge Private Vehicle,Wheelchair/ Cabulance
--- NOTE | 2023-02-22 10:50 | P.DS_ITS ---
History of Present Illness History of Present Illness Date Patient Seen: 02/22/23 Time Patient Seen: 10:50 Chief complaint: General Weakness Narrative: Per admitting provider, Mr. 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 His is at bedside who provides much of the information. She noted that he has speech issues with aphasia since the stroke. He has been to multiple hospitals and rehabs recently for the above issues. Over the last day she noted he became more confused than normal and had a change in his urine symptoms. They did contact their PCP who checked a UA and diagnosed a UTI and he started taking antibiotics last night with one dose of bactrim. Overnight he was more confused so she brought him to the ED. In the ED workup was done, vitals notable for afebrile, heart rate 80s, blood pressure 110s/60s, sats 93% on room air. NIH 0 per ED. Labs reviewed by me and notable for WBC 13.3, hgb 10.3, plts 243. BUN 45, creatinine 1.59. Trop negative. UA reviewed by me and notable for blood, leuk esterase, wbcs, and moderate bacteria. Urine culture noted from 02/19 growing gram negative rods. CT head noted by radiologist to have low attenuation within left frontal lobe possibly related to subacute infarct with no hemorrhage noted. He was ordered for antibiotics and admitted for further treatment. Discharge Providers Provider Date of admission: 02/21/23 09:50 Discharge Date: 02/22/23 Primary care physician: Camacho Smith MD Consults: 02/20/23 15:39 Consult to Occupational Therapy Evaluate & Treat Comment: Physician Instructions: Evaluate and treat Consult to Physical Therapy Evaluate & Treat Comment: Physician Instructions: Evaluate and Treat Discharge provider: Luis Benedict DO Summary Hospital Course Discharge Diagnosis: 1. Sepsis secondary to Recurrent UTI with acute metabolic encephalopathy and DEMETRICE, present on admission. 2. Recent CVA with residual aphsia 3. Paroxysmal atrial fibrillation 4. Recent GI bleed 5. History of subdural hemorrhage Hospital Course: This is an 78 year old male with PMH of embolic CVA, residual aphasia, paroxysmal afib, recent GI bleed and subdural hemorrhage, and recent UTI with encephalopathy who presented with confusion found to have another UTI. With elevated SOFA score of 2 given encephalopathy and DEMETRICE this is consistent with sepsis on admission. His encephalopathy and DEMETRICE continued to improve with ceftriaxone and fluids. He had recently been on bactrim by PCP, and last admission discharged on cefdinir. Renal ultrasound did not show evidence of obstruction but did show nonobstructing stones. Given previous therapy he was discharged on oral ciprofloxacin for another 5 days after discharge for treatment of his UTI. Consider referral to urology given frequency of his infections based on PCP evaluation in the near future. Time Spent with Patient Time spent: Greater than 30 minutes Exam Vital Signs (past 8 hours): - 02/22/23 04:15 Temperature 98.4 F Pulse Rate 71 Respiratory Rate 16 Blood Pressure 141/71 H Pulse Oximetry 94 Oxygen Flow Rate 0 Oxygen Delivery Method Room Air Oxygen Flow Rate 0 Narrative Exam Narrative: GEN: no acute distress, difficulty speaking CV: regular rate and rhythm, no murmurs PULM: clear bilaterally, no wheezes, rhonchi, rales ABD: soft, nontender, nondistended, no organomegaly EXT: warm and well perfused, no edema NEURO: alert no longer appears confused but continues to have baseline difficul ty with speech Objective Labs 02/21/23 06:17 02/21/23 06:17 [facility] Medical History Anemia Cerebrovascular disease Chronic anticoagulation Coronary artery disease Essential hypertension Gait instability Gout Hx of non-ST elevation myocardial infarction (NSTEMI) Kidney stones Low back pain Mixed hyperlipidemia Paroxysmal atrial fibrillation Primary osteoarthritis involving multiple joints Surgical History H/O lithotripsy Hx of appendectomy Hx of cardiac catheterization Family History Mother Renal cancer Father War operations involving destruction of aircraft due to collision with other aircraft, personnel, sequela Social History details: (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 This improved with antibiotics and complete full antibiotic course at home. Consider referral to urology if UTI continues to recur. Discharge orders & Medications Prescriptions: New ciprofloxacin HCl 500 mg tablet 500 mg PO BID 5 Days Qty: 10 0RF Continued losartan 100 mg tablet 100 mg PO DAILY Qty: 15 0RF Rx Instructions: NO FUTURE FILLS UNTIL SEEN. PLEASE CALL TO SCHEDULE APPT. THANKS 12/21/21 + 02/04/22. ICaps AREDS2 (copper citrate) 250 mg-200 unit -12.5 mg-1 mg tablet 1 tab PO BID allopurinol 300 mg tablet 300 mg PO DAILY Qty: 90 3RF clopidogrel 75 mg tablet 75 mg PO DAILY aspirin 81 mg Tablet,Delayed Release (Dr/Ec) 81 mg PO DAILY acetaminophen 325 mg tablet 650 mg PO .8HR PRN (Reason: pain) tramadol 50 mg Tablet 50 mg PO Q6H PRN (Reason: pain) Qty: 30 0RF hydrochlorothiazide 25 mg tablet 25 mg PO DAILY carvedilol 12.5 mg tablet 12.5 mg PO BID (DME) Resmed Airsense 10 CPAP Qty: 1 Rx Instructions: Pressure: 10-18 cmH2O DME: [employer] Discontinued sulfamethoxazole-trimethoprim 800-160 mg tablet 1 tab PO BID Qty: 20 1RF Follow up/Referrals: Camacho Smith MD [Primary Care Provider] - Diet/Activity/Treatments Diet: Diet as Tolerated and Regular Activity: As tolerated, no restrictions. Visit Report/Discharge Packet Instructions: DI for Urinary Tract Infection (UTI), DI for Encephalopathy Stand Alone Forms: Patient Portal/API, Stroke Signs & Symptoms Discharge Data Primary Care Provider: Camacho Smith V Discharges patient from system. Discharge Date/Time: 02/22/23 14:50 Quality VTE Deep Vein Thrombosis/Pulmonary Embolism Present on Admission: No
[2023-02-22] MEDS: cefTRIAXone 1,000 MG in SODIUM CHLORIDE 0.9% 100 ML 200 MG IV (11:24)
--- NOTE | 2023-02-22 14:24 | CM.DANOTE ---
Initial DCP Assessment Note Pt is an 78 yo male, resident [facility], admitted for management of a known UTI, discharging home w/spouse today PCP: Camacho Smith Payer: TRACIE/[employer]rod Reviewed chart, pt discussed in multidisciplinary rounds this morning. Therapy has cleared pt for return home w/spouse to assist, spouse has all needed DME. Patient known to this ELECTRIC BATH ATTENDANT from last visit in early January, spouse Yolanda is patient's sole caregiver at this time. Patient with multiple hospitalizations over the last 6 months with recent stay at acute inpatient rehab at [facility] after a stroke Patient discharged home last admission w/spouse to assist and [facility] Spoke with spouse this morning to confirm DCP; spouse prepared for patient's return home today, requests that [facility] be resumed. Spouse wants to transport patient in her vehicle and has a neighbor to assist once they get home. PT Ashley aware of plan Placed call to [facility] to update on patient's discharge Plan: Discharge home w/spouse. Resumption of [facility] services AMY Mcgrath Discharge Planning/Care Management CM Discharge Assessment Start: 02/22/23 14:17 Freq: Status: Active Protocol: Document 02/22/23 14:17 JANN (Rec: 02/22/23 14:24 JANN [id number]) Discharge Planning Assessment Assigned Calculation Reviewer AMY Sanchez DPOA/Assigned Designee Name Yolanda Wilkes, spouse Contact Information [phone] Advance Directives? Yes Advance Directives on File No History Provided By Family Member,Medical Record Has Patient been admitted in last 30 Yes days? Comment Here 8.4-8.8.23 Prior Living Arrangements House Household Members spouse Type of transporation used prior to Relies on Others admit Independent with ADL's No Is patient alert and oriented? No: hx stroke Needs Assistance With Bathing,Grooming,Meal Prep, Toileting,Managing Medications ,Home Chores / Shopping Patient/Family Preference Home with Home Health Barriers to Discharge No Comment Home w/spouse and resumption of [facility] Discharge Plan Home with Home Health Transportation Arrangement Spouse's vehicle Referrals Initiated Home Health SNF/HH Preference [facility], resumption
--- NOTE | 2023-02-22 14:30 | PT.IPTN ---
Current Diagnoses Urinary tract infection, site not specified (02/21/23) Physical Therapy Treatment Note M2 PT-IP Current Condition Start: 02/21/23 13:22 Freq: NEEDED Status: Discharge Protocol: Document 02/21/23 15:40 DLM (Rec: 02/21/23 17:15 DLM [id number]) Physical Therapy Current Condition Current Condition Evaluation Date 02/21/23 Treatment Diagnosis UTI, weakness, impaired gait Onset Date 02/21/23 M3 PT-IP Subjective Start: 02/21/23 13:22 Freq: NEEDED Status: Discharge Protocol: Document 02/22/23 14:30 DLM (Rec: 02/22/23 15:42 DLM [id number]) Subjective Physical Therapy Visit Type Type Treatment Note Visit Start Time 14:25 Visit Stop Time 14:45 Total Visit Minutes 20 Notes extra treatment this afternoon for car transfer training for safe discharge home with his 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 0 M4 PT-IP Mobility and Gait Start: 02/21/23 13:22 Freq: NEEDED Status: Discharge Protocol: Document 02/22/23 14:30 DLM (Rec: 02/22/23 15:42 DLM [id number]) PT-Bed Mobility Assessment Supine to Sit Supine to Sit Minimal Assistance,Moderate Assistance,Head of Bed Elevated Scooting Scooting to Edge of Bed Standby Assistance PT-Transfer Assessment Sit to and From Stand Sit to and from Stand Contact Guard Assistance,Use of Upper Extremities Equipment Transfer Assistive Device Gait Belt,Front Wheeled Walker Transfers Transfer Destination Car Transfer Technique Stand Step Pivot Transfer Ability Level of Assist Contact Guard Assistance, Minimal Assistance,Use of Upper Extremities Comments Mobility Comments Pt transfered into tall pink adjustable chair (the one used for swallow studies), was pushed to the car and then did a transfer into the car for transport home. His is present for this treatment. He has the car seat at highest setting until he sits on the seat, once seated the seat was brought back down for head room, seat slide back for LE space and seat reclined. He needed min assist to get his LE's into the car but pt can scoot around independently using UE inside the car. The window on the car was down during the transfer for UE support as needed. Once he was positioned well in the car the seat was brought more upright for comfort. Pt shows good safety awareness doing a car transfer. His demonstrates a good understanding of how to assist him. She plans to have a neighbor present to assist with getting pt back into the house at discharge. Gait Assessment Gait Gait Assistance Required: Contact Guard Assist Distance (Feet) 5 Assistive Devices Assistive Device Gait Belt,Front Wheeled Walker Factors Limiting Gait Function Factors Limiting Gait Function Decreased Activity Tolerance Comments Gait Comments he demonstrates good weight bearing on his LE's for gait M5 PT-IP Objective Assessments Start: 02/21/23 13:22 Freq: NEEDED Status: Discharge Protocol: Document 02/21/23 15:40 DLM (Rec: 02/21/23 17:15 DLM [id number]) Orientation Orientation/Cognition Level of Alertness Alert Language Function Ability Expressive Aphasia Safety Awareness Understands Safety Issues Comments he is able to express some words Gross Range of Motion Upper Extremity ROM Assessment Right Impaired Impairments pain with right shoudler ROM, see OT notes Lower Extremity ROM Assessment Within Functional Limits Strength Upper Extremity Strength Assessment Right Impaired Shoulder pain limits functional use Lower Extremity Strength Assessment Bilaterally Impaired Comments Strength Comments generalized weakness in LE's, able to bear weight for standing Coordination Assessment Gross Coordination Gross Coordination WNL Sensation Assessment Comments Sensation Comments no numbness reported, his impaired speech complicates testing Muscle Tone Muscle Tone WNL Yes M6 PT-IP Treatment Start: 02/21/23 13:22 Freq: NEEDED Status: Discharge Protocol: Document 02/22/23 14:30 DLM (Rec: 02/22/23 15:42 DL [id number]) Physical Therapy Treatment Education Education Provided Safety M7 PT-IP Assessment and Plan Start: 02/21/23 13:22 Freq: NEEDED Status: Discharge Protocol: Document 02/22/23 14:30 DLM (Rec: 02/22/23 15:42 DL [id number]) PT Summary Assessment and Plan Summary Progress Towards Goals Progressing Toward Goals Assessment Summary Bill is progressing well today . The tall pink adjustable chair is tall enough to assist with safe sit-stand to transport pt to the car. Pt was able to safely do a car transfer with the FWW and one person assist. A second staff member was present during this visit for safety. Pt is discharging home with his today. Recommend he continue with his home therapy. Frequency of Treatment Frequency Of Treatment Discharge Treatment Plan Other Recommendations and Next Treatment pt discharging home with his Focus after this visit Discharge Recommendations PT Discharge Recommendations Home with Assistance,Home Health Transportation Needs at Discharge Private Vehicle
--- NOTE | 2023-02-22 15:06 | PC.NURSE ---
Discharge: Pt feels ready to d/c to home. He worked with PT and is at his baseline. Recieved last dose of antibiotic IV per MD request. Had a large bm. Spouse feels like pt is at his baseline. Reviewed d/c packet and understood. Rx has been esent. Questions answered. Pt d/c to home vi auto w/spouse. Pt was assisted into auto with PT. Spouse reports she has someone when she is home she will call to help get her inside.
== END 2023-02-22 14:50 | disposition home health service (06) | DRG 871 ==
LOC: ED 09:52 → AC 13:53
PROVIDERS: Admitting Provider Internal Medicine; Emergency Provider Emergency Medicine; Family Provider Student in an Organized Health Care Education/Training Program; PCP Internal Medicine; Referring Provider Emergency Medicine; Visit Provider Internal Medicine
DX: A41.9 Sepsis, unspecified organism (principal); G93.41 Metabolic encephalopathy; N39.0 Urinary tract infection, site not specified; N17.9 Acute kidney failure, unspecified; I48.0 Paroxysmal atrial fibrillation; R65.20 Severe sepsis without septic shock; I10 Essential (primary) hypertension; M10.9 Gout, unspecified; Z87.891 Personal history of nicotine dependence; I69.320 Aphasia following cerebral infarction; Z87.19 Personal history of other diseases of the digestive system
CPT/HCPCS: 36415; 70450; 70496; 70498; 76770; 80048; 80053; 81001; 81003; 82550; 84484; 85025; 85610; 85730; 87077; 87086; 87186; 93005; 96365; 97116; 97162; 97166; 97530; 99284; 99285; G0378; J0696; J1644; Q9967

== ENCOUNTER → 2023-04-11 10:29 | Outpatient (CLI) | payer MEDICARE, OTHER, SELFPAY ==
[2023-02-20 16:04] VITALS: BMI 39.9
[2023-04-11 11:34] LABS: Hematocrit 31.4 % (41-53); Hemoglobin 9.9 g/dL (13.5-17.5); Mean Corpuscular HGB Conc 31.5 % (30-36); Mean Corpuscular Hemoglobin 26.4 PG (26-34); Mean Corpuscular Volume 83.8 fL (80-100); Platelet Count 255 X10^3/uL (150-400); Red Blood Cell Count 3.74 X10^6/uL (4.5-5.9); Red Cell Distribution Width 19.9 % (11.6-14.8); White Blood Cell Count 8.6 X10^3/uL (4.5-11.0)
[2023-04-11 11:51] LABS: BUN Creatinine Ratio 31.8 (6-22); Blood Urea Nitrogen 27 mg/dL (9-20); Calcium 9.6 mg/dL (8.4-10.2); Carbon Dioxide 24 mmol/L (22-32); Chloride 106 mmol/L (98-107); Cholesterol 183 mg/dL (140-199); Creatine Kinase 292 U/L (55-170); Estimated Glomerular Filt Rate > 60 mL/min (>60); Glucose 109 mg/dL (80-110); HDL Cholesterol 24 mg/dL (40-60); HEMOLYSIS < 15 (0-50); LDL Cholesterol Calculated 117 mg/dL (<100); Potassium 4.3 mmol/L (3.4-5.1); Sodium 141 mmol/L (137-145); Triglycerides 208 mg/dL (35-150)
[2023-04-11 11:57] LABS: HEMOLYSIS < 15 (0-50); Iron 39 ug/dL (49-181)
[2023-04-11 12:08] LABS: Percent Iron Saturation 11 % (20-50); Total Iron Binding Capacity 363 ug/dL (261-462); Transferrin 286 mg/dL (206-381)
[2023-04-11 12:21] LABS: Ferritin 11 ng/mL (18-464)
== END ==
PROVIDERS: Family Provider Student in an Organized Health Care Education/Training Program; PCP Internal Medicine; Referring Provider Internal Medicine; Visit Provider Internal Medicine
DX: D64.9 Anemia, unspecified (principal); E78.2 Mixed hyperlipidemia; I25.10 Atherosclerotic heart disease of native coronary artery without angina pectoris; I67.9 Cerebrovascular disease, unspecified; N39.0 Urinary tract infection, site not specified; D62 Acute posthemorrhagic anemia
CPT/HCPCS: 36415; 80048; 80061; 82550; 82728; 83540; 83550; 85027

== ENCOUNTER → 2023-04-14 11:31 | Outpatient (CLI) | payer MEDICARE, OTHER, SELFPAY ==
[2023-02-20 16:04] VITALS: BMI 39.9
[2023-04-14 12:56] LABS: Appearance Urine UA CLEAR; Bilirubin Urine UA NEGATIVE (NEGATIVE); Color Urine UA YELLOW; Glucose Urine UA NEGATIVE (Negative); Ketones Urine UA NEGATIVE (NEGATIVE); Leukocyte Esterase Urine UA NEGATIVE (NEGATIVE); Nitrite Urine UA NEGATIVE (Negative); Occult Blood Urine UA TRACE-INTACT (Negative); Protein Urine UA NEGATIVE (Negative); Urobilinogen Urine UA 0.2 E.U./dL (0.2)
[2023-04-14 13:01] LABS: Bacteria Urine None Seen; Culture Indicated Urine Cult Not Indicated; RBC Urine None Seen (0-5/HPF); Squamous Epithelial Cell Urine None Seen (0-5/HPF); WBC Urine None Seen (0-5/HPF)
== END ==
PROVIDERS: Family Provider Student in an Organized Health Care Education/Training Program; PCP Internal Medicine; Referring Provider Internal Medicine; Visit Provider Internal Medicine
DX: I67.9 Cerebrovascular disease, unspecified (principal); N39.0 Urinary tract infection, site not specified; D62 Acute posthemorrhagic anemia
CPT/HCPCS: 81001

== ENCOUNTER → 2023-11-12 11:32 | Outpatient (CLI) | payer MEDICARE, OTHER, SELFPAY ==
[2023-02-20 16:04] VITALS: BMI 39.9
[2023-11-12 12:31] LABS: Hematocrit 29.6 % (41-53); Hemoglobin 9.1 g/dL (13.5-17.5); Mean Corpuscular HGB Conc 30.6 % (30-36); Mean Corpuscular Hemoglobin 22.6 PG (26-34); Platelet Count 273 X10^3/uL (150-400); Red Cell Distribution Width 22.3 % (11.6-14.8); White Blood Cell Count 9.5 X10^3/uL (4.5-11.0)
[2023-11-12 13:32] LABS: HEMOLYSIS < 15 (0-50); Iron 37 ug/dL (49-181)
[2023-11-12 13:40] LABS: Alanine Aminotransferase 20 IU/L (<50); Albumin 4.1 g/dL (3.5-5.0); Albumin Globulin Ratio 1.2 (1.0-2.8); Alkaline Phosphatase 94 U/L (38-126); Aspartate Aminotransferase 25 IU/L (17-59); BUN Creatinine Ratio 29.5 (6-22); Bilirubin Total 0.5 mg/dL (0.2-1.3); Blood Urea Nitrogen 28 mg/dL (9-20); Calcium 8.9 mg/dL (8.4-10.2); Carbon Dioxide 24 mmol/L (22-32); Chloride 109 mmol/L (98-107); Cholesterol 120 mg/dL (140-199); Creatine Kinase 363 U/L (55-170); Estimated Glomerular Filt Rate > 60 mL/min (>60); Globulin 3.4 g/dL (1.7-4.1); Glucose 107 mg/dL (80-110); HDL Cholesterol 24 mg/dL (40-60); HEMOLYSIS < 15 (0-50); LDL Cholesterol Calculated 70 mg/dL (<100); Potassium 4.3 mmol/L (3.4-5.1); Sodium 141 mmol/L (137-145); Total Protein 7.5 g/dL (6.3-8.2); Transferrin 265 mg/dL (206-381); Triglycerides 129 mg/dL (35-150)
[2023-11-12 13:50] LABS: Percent Iron Saturation 10 % (20-50); Total Iron Binding Capacity 360 ug/dL (261-462)
[2023-11-12 14:15] LABS: Ferritin 6 ng/mL (18-464)
== END ==
PROVIDERS: Family Provider Student in an Organized Health Care Education/Training Program; PCP Internal Medicine; Referring Provider Internal Medicine; Visit Provider Internal Medicine
DX: I48.0 Paroxysmal atrial fibrillation (principal); D50.9 Iron deficiency anemia, unspecified; E78.2 Mixed hyperlipidemia; M60.9 Myositis, unspecified
CPT/HCPCS: 80053; 80061; 82550; 82728; 83540; 83550; 85027

== ENCOUNTER → 2023-12-13 10:07 | Outpatient (CLI) | payer MEDICARE, OTHER, SELFPAY ==
[2023-02-20 16:04] VITALS: BMI 39.9
[2023-12-13 11:09] LABS: HEMOLYSIS < 15 (0-50); Iron 124 ug/dL (49-181)
[2023-12-13 11:20] LABS: Percent Iron Saturation 43 % (20-50); Total Iron Binding Capacity 288 ug/dL (261-462); Transferrin 211 mg/dL (206-381)
[2023-12-13 11:46] LABS: Ferritin 221 ng/mL (18-464)
[2023-12-13 12:17] LABS: Basophils Absolute Auto 100 /uL (0-100); Basophils Percent Auto 0.9 % (0-2); Eosinophils Absolute Auto 300 /uL (0-450); Eosinophils Percent Auto 2.7 % (2-4); Hematocrit 34.5 % (41-53); Hemoglobin 10.7 g/dL (13.5-17.5); Lymphocytes Absolute Auto 1800 /uL (1100-4500); Lymphocytes Percent Auto 16.3 % (25-40); Mean Corpuscular Hemoglobin 26.1 PG (26-34); Monocytes Absolute Auto 1200 /uL (0-900); Monocytes Percent Auto 11.4 % (3-14); Neutrophils Absolute Auto 7500 /uL (1500-7000); Neutrophils Percent Auto 68.7 % (50-75); Platelet Count 204 X10^3/uL (150-400); Red Blood Cell Count 4.11 X10^6/uL (4.5-5.9); Red Cell Distribution Width 30.1 % (11.6-14.8)
[2023-12-13 12:18] LABS: Add Manual Diff / Slide Review SLIDE REVIEW
[2023-12-13 12:52] LABS: Anisocytosis 2+; Macrocytosis 1+; Microcytosis 1+
[2023-12-13 12:54] LABS: Hypochromasia 1+; Ovalocytes 1+; Rouleaux 1+
== END ==
PROVIDERS: Family Provider Student in an Organized Health Care Education/Training Program; PCP Internal Medicine; Referring Provider Internal Medicine; Visit Provider Internal Medicine
DX: D50.9 Iron deficiency anemia, unspecified (principal)
CPT/HCPCS: 36415; 82728; 83540; 83550; 85025

== ENCOUNTER → 2023-12-24 15:27 | Outpatient (CLI) | payer MEDICARE, OTHER, SELFPAY ==
[2023-02-20 16:04] VITALS: BMI 39.9
--- NOTE | 2023-12-24 15:29 | DI.RAD.S_ITS ---
PROCEDURE: XR KNEE LT 3V INDICATIONS: left knee pain/fall TECHNIQUE: 3 views of the knee were acquired. COMPARISON: None. FINDINGS: Bones: No fractures or dislocations. No suspicious bony lesions. Moderate to severe tricompartmental arthritic change most severe medially. Periarticular osteophytes present. Soft tissues: No joint effusion. No suspicious soft tissue calcifications. IMPRESSION: Significant tricompartmental arthritic change. No visualized acute fracture or dislocation. However, if clinical concern and/or pain persist, short interval imaging followup in 7-10 days is recommended, as occult injury or injury obscured by significant arthritic change cannot be definitively excluded. Dictated by: Shabnam Rudolph M.D. on 12/24/2023 at 21:50 Approved by: Shabnam Rudolph M.D. on 12/24/2023 at 21:50
== END ==
PROVIDERS: Family Provider Student in an Organized Health Care Education/Training Program; PCP Internal Medicine; Referring Provider Internal Medicine; Visit Provider Internal Medicine
DX: M25.562 Pain in left knee (principal)
CPT/HCPCS: 73562

== ENCOUNTER 2024-02-20 14:49 | Emergency (ER) | payer MEDICARE, OTHER, SELFPAY ==
[2023-02-20 16:04] VITALS: BMI 39.9
[2024-02-20] VITALS (22 sets, daily range): BP systolic 95–136; BP diastolic 62–80; PULSE 64–77; RESP 14–27; TEMP 36.9; O2SAT 90–99; BMI 34.0
--- NOTE | 2024-02-20 15:04 | DI.RAD.S_ITS ---
PROCEDURE: XR CHEST 1V INDICATIONS: chest pain TECHNIQUE: One view of the chest was acquired. COMPARISON: [facility], CR, XR CHEST 1V, 01/24/2023, 19:15. [facility], CR, XR CHEST 1V, 08/08/2022, 21:43. FINDINGS: Surgical changes and devices: None. Lungs and pleura: Lungs are clear on the right but there is increased radiodensity at the left lung base laterally.. No pleural effusions or pneumothorax. Mediastinum: Mediastinal contours appear normal. Heart size is normal. Bones and chest wall: No suspicious bony lesions. Overlying soft tissues appear unremarkable. IMPRESSION: Possible mild or early pneumonia lateral left lower lobe abutting the diaphragm. Dictated by: Suman Burrows M.D. on 02/20/2024 at 15:59 Approved by: Suman Burrows M.D. on 02/20/2024 at 15:59
--- NOTE | 2024-02-20 15:08 | EKG_ITS ---
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
[2024-02-20 15:39] LABS: Basophils Absolute Auto 100 /uL (0-100); Basophils Percent Auto 0.8 % (0-2); Eosinophils Absolute Auto 200 /uL (0-450); Eosinophils Percent Auto 1.6 % (2-4); Hematocrit 32.4 % (41-53); Hemoglobin 10.6 g/dL (13.5-17.5); Lymphocytes Absolute Auto 2200 /uL (1100-4500); Lymphocytes Percent Auto 18.5 % (25-40); Mean Corpuscular HGB Conc 32.7 % (30-36); Mean Corpuscular Hemoglobin 32.5 PG (26-34); Mean Corpuscular Volume 99.4 fL (80-100); Monocytes Absolute Auto 1300 /uL (0-900); Monocytes Percent Auto 11.4 % (3-14); Neutrophils Absolute Auto 8000 /uL (1500-7000); Neutrophils Percent Auto 67.7 % (50-75); Platelet Count 221 X10^3/uL (150-400); Red Blood Cell Count 3.26 X10^6/uL (4.5-5.9); Red Cell Distribution Width 19.2 % (11.6-14.8); White Blood Cell Count 11.7 X10^3/uL (4.5-11.0)
[2024-02-20 15:40] LABS: Add Manual Diff / Slide Review SLIDE REVIEW
[2024-02-20 15:42] LABS: INR 1.1 (0.9-1.3)
[2024-02-20 15:45] LABS: PTT Partial Thromboplastin Tim 39 SECONDS (25.1-36.5)
[2024-02-20 15:47] LABS: Alanine Aminotransferase 22 IU/L (<50); Albumin 3.8 g/dL (3.5-5.0); Albumin Globulin Ratio 1.1 (1.0-2.8); Alkaline Phosphatase 72 U/L (38-126); Aspartate Aminotransferase 24 IU/L (17-59); BUN Creatinine Ratio 65.6 (6-22); Bilirubin Total 0.2 mg/dL (0.2-1.3); Blood Urea Nitrogen 63 mg/dL (9-20); Carbon Dioxide 23 mmol/L (22-32); Chloride 109 mmol/L (98-107); Creatine Kinase 273 U/L (55-170); Estimated Glomerular Filt Rate > 60 mL/min (>60); Globulin 3.5 g/dL (1.7-4.1); Glucose 93 mg/dL (80-110); HEMOLYSIS < 15 (0-50); Lipase 91 U/L (23-300); Magnesium 2.1 mg/dL (1.6-2.3); Potassium 4.4 mmol/L (3.4-5.1); Sodium 140 mmol/L (137-145); Total Protein 7.3 g/dL (6.3-8.2)
[2024-02-20 15:59] LABS: NT-proBNP (BNP-Adult 18+) 139 pg/mL (<450)
[2024-02-20 16:28] LABS: Anisocytosis 1+
--- NOTE | 2024-02-20 16:52 | ED_ITS ---
HPI - Chest Pain <Jose Carlos Conte MD - Last Filed: 02/28/24 12:51> General Chief Complaint: Chest Pain Stated Complaint: chest px, disoriented, stroke hx Time Seen by Provider: 02/20/24 16:25 History of Present Illness HPI narrative: Patient here with . Complains of shortness of breath chest discomfort with lying flat. No fever cough congestion. Patient has significant history of atrial fibrillation stroke coronary artery disease cardiac stents. Patient denies any exertional chest pain. Has generalized chest discomfort. Patient is in physical rehab. Uses 2 canes and is short of breath with walking but uncertain if this is new. He denies any chest pain with exertion or walking. Related Data Home Medications Medication Instructions Recorded Confirmed aspirin 81 mg tablet,delayed 81 mg PO DAILY 08/12/18 02/21/24 release vit C 250 mg-vit E 200 unit-zinc 1 tab PO BID 10/04/20 02/21/24 12.5 mg-copper 1 dc-ply-fxsyqy tablet (ICaps AREDS2 (copper citrate)) carvedilol 12.5 mg tablet 12.5 mg PO BID 05/20/22 02/21/24 hydrochlorothiazide 25 mg tablet 25 mg PO DAILY 05/20/22 02/21/24 acetaminophen 325 mg tablet 650 mg PO .8HR PRN pain 08/23/22 12/24/23 evolocumab 140 mg/mL subcutaneous 140 mg SUBCUT Q2W 11/18/23 02/21/24 pen injector (Danni Gomez) acetaminophen 500 mg tablet 500 mg PO QID PRN Pain (Scale 02/21/24 02/21/24 Score 4-6) amino ac-vit P-Ll-tqvyaunb-hb9 1 tab PO DAILY 02/21/24 02/21/24 tablet mv-mn-folic 200 mcg-vit K 15 1 cap PO DAILY 02/21/24 02/21/24 mcg-lutein 5 mg-zeaxanthin 1 mg capsule (PreserVision AREDS 2 Plus Multivit) sertraline 50 mg tablet 25 mg PO DAILY 02/21/24 02/21/24 tramadol 50 mg tablet 50 mg PO QPM 02/21/24 02/21/24 Previous Rx's Medication Instructions Recorded allopurinol 300 mg tablet 300 mg PO DAILY #90 tabs 06/09/23 losartan 100 mg tablet 100 mg PO DAILY #90 tabs 12/18/23 Allergies Allergy/AdvReac Type Severity Reaction Status Date / Time prednisone Allergy Severe Confusion Verified 12/24/23 12:09 celecoxib [From Celebrex] Allergy Intermediate Gastrointestinal Verified 12/24/23 12:09 Upset oxycodone [From Percocet] Allergy Intermediate Nausea Verified 12/24/23 12:09 Xxpntqy-TGD-LaM Reductase AdvReac Severe Autoimmune Verified 12/24/23 12:09 Inhibitor myositis [Jabogqz-Wns-Pqx Reductase Inhibitor] codeine AdvReac Mild Redness of Verified 12/24/23 12:09 Skin icosapent ethyl AdvReac Mild Nausea Verified 12/24/23 12:09 Review of Systems <Jose Carlos Conte MD - Last Filed: 02/28/24 12:51> Review of Systems Narrative: GENERAL: negative chills, fatigue, malaise, fever, sweats. HEENT: negative sinus pain, ear pain, sore throat RESPIRATORY: negative dyspnea, cough CARDIOVASCULAR: Positive chest pain, negative palpitations GASTROINTESTINAL: negative nausea, vomiting, abdominal pain : negative dysuria, frequency, hematuria MUSCULOSKELETAL: negative muscle or bony pain SKIN: negative rash, skin lesions NEUROLOGIC: negative weakness, numbness Patient History <Jose Carlos Conte MD - Last Filed: 02/28/24 12:51> Medical History Left knee pain Iron deficiency anemia Reactive depression Cerebrovascular disease Gait instability Anemia Primary osteoarthritis involving multiple joints Gout Mixed hyperlipidemia Essential hypertension Chronic anticoagulation Paroxysmal atrial fibrillation Hx of non-ST elevation myocardial infarction (NSTEMI) Low back pain Kidney stones Coronary artery disease Surgical History Hx of cardiac catheterization H/O lithotripsy Hx of appendectomy Family History Mother Renal cancer Father War operations involving destruction of aircraft due to collision with other aircraft, personnel, sequela Social History details: (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 EYES: Pupils equal round ENT: Mucous membranes moist. NECK: Trachea midline. CARDIOVASCULAR: Regular rate and rhythm RESPIRATORY: Clear to auscultation. Breath sounds equal bilaterally. No wheezes, rales, or rhonchi. Slightly diminished basilar lung sounds GASTROINTESTINAL: Abdomen soft, non-tender EXTREMITIES: No gross deformities. BACK: No flank tenderness. NEURO: AOx4. SKIN: Warm and dry PSYCH: Not anxious, is cooperative Initial Vital Signs Initial Vital Signs: Vital Signs Temperature 98.4 F 02/20/24 14:59 Pulse Rate 77 02/20/24 14:59 Respiratory Rate 16 02/20/24 14:59 Blood Pressure 99/62 02/20/24 14:59 Pulse Oximetry 94 02/20/24 14:59 Oxygen Delivery Method Room Air 02/20/24 14:59 <Spike Renee DO - Last Filed: 02/21/24 01:34> Initial Vital Signs Initial Vital Signs: Vital Signs Temperature 98.4 F 02/20/24 14:59 Pulse Rate 77 02/20/24 14:59 Respiratory Rate 16 02/20/24 14:59 Blood Pressure 99/62 02/20/24 14:59 Pulse Oximetry 94 02/20/24 14:59 Oxygen Delivery Method Room Air 02/20/24 14:59 Course <Jose Carlos Conte MD - Last Filed: 02/28/24 12:51> Orders Ordered: Discontinued Medications Aspirin (Aspirin 81 Mg Chew Tab) 324 mg PO NOW ONE Stop: 02/21/24 01:35 Last Admin: 02/21/24 01:40 Dose: 324 mg Documented By: MLM Heparin Sodium (Porcine) (Heparin 5,000 Unit/Ml Vial) 5,000 unit IV NOW ONE Stop: 02/20/24 21:33 Last Admin: 02/20/24 22:14 Dose: 5,000 unit Documented By: MLM Heparin Sodium/Dextrose (Heparin Drip) 25,000 unit in 500 mls @ 30.481 mls/hr IV CONT RAFIQ; Protocol Last Titration: 02/21/24 01:50 Dose: Infused Documented By: AMANDA Co-signed By: CHEIKH Admin: 02/20/24 22:27 Dose: 7.87 units/kg/hr, 20 mls/hr Documented By: AMANDA Co-signed By: TOLU Vital Signs Vital signs: Vital Signs - 8 hr 02/20/24 18:00 02/20/24 18:00 02/20/24 18:30 Pulse Rate 68 Respiratory Rate 14 Blood Pressure 110/75 110/74 Pulse Oximetry 92 02/20/24 18:30 02/20/24 19:00 02/20/24 19:01 Pulse Rate 66 67 Respiratory Rate 19 19 Blood Pressure 129/80 Pulse Oximetry 92 94 02/20/24 19:01 02/20/24 19:30 02/20/24 20:00 Pulse Rate 66 67 68 Respiratory Rate 18 20 18 Blood Pressure Pulse Oximetry 93 98 95 02/20/24 20:30 02/20/24 21:00 02/20/24 21:17 Pulse Rate 67 69 77 Respiratory Rate 19 20 27 H Blood Pressure Pulse Oximetry 95 94 97 02/20/24 21:17 02/20/24 21:30 02/20/24 21:30 Pulse Rate 68 Respiratory Rate 17 Blood Pressure 131/71 126/75 Pulse Oximetry 97 02/20/24 22:00 02/20/24 22:00 02/20/24 22:30 Pulse Rate 67 68 Respiratory Rate 22 22 Blood Pressure 127/73 Pulse Oximetry 99 94 02/20/24 22:30 02/20/24 23:00 02/20/24 23:00 Pulse Rate 64 Respiratory Rate 21 Blood Pressure 136/78 131/79 Pulse Oximetry 95 02/20/24 23:30 02/20/24 23:30 Pulse Rate 68 Respiratory Rate 20 Blood Pressure 127/73 Pulse Oximetry 93 <Spike Renee DO - Last Filed: 02/21/24 01:34> Orders Ordered: Discontinued Medications Aspirin (Aspirin 81 Mg Chew Tab) 324 mg PO NOW ONE Stop: 02/21/24 01:35 Last Admin: 02/21/24 01:40 Dose: 324 mg Documented By: AMANDA Heparin Sodium (Porcine) (Heparin 5,000 Unit/Ml Vial) 5,000 unit IV NOW ONE Stop: 02/20/24 21:33 Last Admin: 02/20/24 22:14 Dose: 5,000 unit Documented By: AMANDA Heparin Sodium/Dextrose (Heparin Drip) 25,000 unit in 500 mls @ 30.481 mls/hr IV CONT RAFIQ; Protocol Last Titration: 02/21/24 01:50 Dose: Infused Documented By: AMANDA Co-signed By: CHEIKH Admin: 02/20/24 22:27 Dose: 7.87 units/kg/hr, 20 mls/hr Documented By: AMANDA Co-signed By: TOLU Vital Signs Vital signs: Vital Signs - 8 hr 02/20/24 18:00 02/20/24 18:00 02/20/24 18:30 Pulse Rate 68 Respiratory Rate 14 Blood Pressure 110/75 110/74 Pulse Oximetry 92 02/20/24 18:30 02/20/24 19:00 02/20/24 19:01 Pulse Rate 66 67 Respiratory Rate 19 19 Blood Pressure 129/80 Pulse Oximetry 92 94 02/20/24 19:01 02/20/24 19:30 02/20/24 20:00 Pulse Rate 66 67 68 Respiratory Rate 18 20 18 Blood Pressure Pulse Oximetry 93 98 95 02/20/24 20:30 02/20/24 21:00 02/20/24 21:17 Pulse Rate 67 69 77 Respiratory Rate 19 20 27 H Blood Pressure Pulse Oximetry 95 94 97 02/20/24 21:17 02/20/24 21:30 02/20/24 21:30 Pulse Rate 68 Respiratory Rate 17 Blood Pressure 131/71 126/75 Pulse Oximetry 97 02/20/24 22:00 02/20/24 22:00 02/20/24 22:30 Pulse Rate 67 68 Respiratory Rate 22 22 Blood Pressure 127/73 Pulse Oximetry 99 94 02/20/24 22:30 02/20/24 23:00 02/20/24 23:00 Pulse Rate 64 Respiratory Rate 21 Blood Pressure 136/78 131/79 Pulse Oximetry 95 02/20/24 23:30 02/20/24 23:30 Pulse Rate 68 Respiratory Rate 20 Blood Pressure 127/73 Pulse Oximetry 93 MDM - Chest Pain <Jose Carlos Conte MD - Last Filed: 02/28/24 12:51> Lab Data 02/20/24 15:05 02/20/24 15:05 Labs: Lab Results 02/20/24 02/20/24 02/20/24 Range/Units 15:05 15:31 16:50 WBC 11.7 H (4.5-11.0) X10^3/uL RBC 3.26 L (4.5-5.9) X10^6/uL Hgb 10.6 L (13.5-17.5) g/dL Hct 32.4 L (41-53) % MCV 99.4 (80-100) fL MCH 32.5 (26-34) PG MCHC 32.7 (30-36) % RDW 19.2 H (11.6-14.8) % Plt Count 221 (150-400) X10^3/uL Neut % (Auto) 67.7 (50-75) % Lymph % (Auto) 18.5 L (25-40) % [place] % (Auto) 11.4 (3-14) % Eos % (Auto) 1.6 L (2-4) % Baso % (Auto) 0.8 (0-2) % Neut # (Auto) 8000 H (5026-7994) /uL Lymph # (Auto) 2200 (3515-0526) /uL [place] # (Auto) 1300 H (0-900) /uL Eos # (Auto) 200 (0-450) /uL Baso # (Auto) 100 (0-100) /uL RBC Morphology See below Anisocytosis 1+ H PT 13.0 H (9.4-12.5) SECONDS INR 1.1 (0.9-1.3) APTT 39 H (25.1-36.5) SECONDS Sodium 140 (137-145) mmol/L Potassium 4.4 (3.4-5.1) mmol/L Chloride 109 H (98-107) mmol/L Carbon Dioxide 23 (22-32) mmol/L BUN 63 H (9-20) mg/dL Creatinine 0.96 (0.66-1.25) mg/dL Estimated GFR > 60 (>60) mL/min BUN/Creatinine Ratio 65.6 H (6-22) Glucose 93 (80-110) mg/dL Lactate 2.0 (0.7-2.1) mmol/L Calcium 9.0 (8.4-10.2) mg/dL Magnesium 2.1 (1.6-2.3) mg/dL Total Bilirubin 0.2 (0.2-1.3) mg/dL AST 24 (17-59) IU/L ALT 22 (<50) IU/L Alkaline Phosphatase 72 (38-126) U/L Total Creatine Kinase 273 H (55-170) U/L Troponin I 0.070 H (0.01-0.034) ng/mL NT-Pro-B Natriuret Pep 139 (<450) pg/mL Total Protein 7.3 (6.3-8.2) g/dL Albumin 3.8 (3.5-5.0) g/dL Globulin 3.5 (1.7-4.1) g/dL Albumin/Globulin Ratio 1.1 (1.0-2.8) Lipase 91 (23-300) U/L Procalcitonin 0.117 (<0.5) ng/mL Urine Color Urine Appearance Urine pH (4.5-8.0) Ur Specific [place] (1.000-1.035) Urine Protein (Negative) Urine Glucose (UA) (Negative) g/dL Urine Ketones (NEGATIVE) Urine Occult Blood (Negative) Urine Nitrate (Negative) Urine Bilirubin (NEGATIVE) Urine Urobilinogen (0.2) E.U./dL Ur Leukocyte Esterase (NEGATIVE) Urine RBC (0-5/HPF) Urine WBC (0-5/HPF) Ur Squamous Epith Cells (0-5/HPF) Urine Bacteria (None) Ur Culture Indicated? Vol Urine Centrifuged Chlamy pneumoniae PCR Not detected (Not Detect) Adenovirus (PCR) Not detected (Not Detect) B.parapertussis DNA PCR Not detected (Not Detecte) Coronavirus OC43 (PCR) Not detected (Not Detect) Coronavirus HKU1 (PCR) Not detected (Not Detect) Coronavirus 229E (PCR) Not detected (Not Detect) SARS-CoV-2 (PCR) Not detected (Not Detecte) Coronavirus NL63 (PCR) Not detected (Not Detect) Human Metapneumovir PCR Not detected (Not Detect) Influenza Type A (PCR) Not detected (Not Detect) Influenza Type B (PCR) Not detected (Not Detect) M. pneumoniae (PCR) Not detected (Not Detect) Parainfluenza 1 (PCR) Not detected (Not Detect) Parainfluenza 2 (PCR) Not detected (Not Detect) Parainfluenza 3 (PCR) Not detected (Not Detect) Parainfluenza 4 (PCR) Not detected (Not Detect) RSV (PCR) Not detected (Not Detect) Entero/Rhino (PCR) Not detected (Not Detect) 02/20/24 02/20/24 02/20/24 Range/Units 17:00 19:30 20:25 WBC (4.5-11.0) X10^3/uL RBC (4.5-5.9) X10^6/uL Hgb (13.5-17.5) g/dL Hct (41-53) % MCV (80-100) fL MCH (26-34) PG MCHC (30-36) % RDW (11.6-14.8) % Plt Count (150-400) X10^3/uL Neut % (Auto) (50-75) % Lymph % (Auto) (25-40) % [place] % (Auto) (3-14) % Eos % (Auto) (2-4) % Baso % (Auto) (0-2) % Neut # (Auto) (7413-3819) /uL Lymph # (Auto) (0742-4583) /uL [place] # (Auto) (0-900) /uL Eos # (Auto) (0-450) /uL Baso # (Auto) (0-100) /uL RBC Morphology Anisocytosis PT (9.4-12.5) SECONDS INR (0.9-1.3) APTT (25.1-36.5) SECONDS Sodium (137-145) mmol/L Potassium (3.4-5.1) mmol/L Chloride (98-107) mmol/L Carbon Dioxide (22-32) mmol/L BUN (9-20) mg/dL Creatinine (0.66-1.25) mg/dL Estimated GFR (>60) mL/min BUN/Creatinine Ratio (6-22) Glucose (80-110) mg/dL Lactate (0.7-2.1) mmol/L Calcium (8.4-10.2) mg/dL Magnesium (1.6-2.3) mg/dL Total Bilirubin (0.2-1.3) mg/dL AST (17-59) IU/L ALT (<50) IU/L Alkaline Phosphatase (38-126) U/L Total Creatine Kinase 220 H (55-170) U/L Troponin I 0.092 H 0.120 H (0.01-0.034) ng/mL NT-Pro-B Natriuret Pep (<450) pg/mL Total Protein (6.3-8.2) g/dL Albumin (3.5-5.0) g/dL Globulin (1.7-4.1) g/dL Albumin/Globulin Ratio (1.0-2.8) Lipase (23-300) U/L Procalcitonin (<0.5) ng/mL Urine Color Yellow Urine Appearance Clear Urine pH 5.5 (4.5-8.0) Ur Specific [place] 1.015 (1.000-1.035) Urine Protein Negative (Negative) Urine Glucose (UA) Negative (Negative) g/dL Urine Ketones Negative (NEGATIVE) Urine Occult Blood Negative (Negative) Urine Nitrate Negative (Negative) Urine Bilirubin Negative (NEGATIVE) Urine Urobilinogen 0.2 (0.2) E.U./dL Ur Leukocyte Esterase Trace H (NEGATIVE) Urine RBC None seen (0-5/HPF) Urine WBC 1-5/hpf (0-5/HPF) Ur Squamous Epith Cells 1-5 /hpf (0-5/HPF) Urine Bacteria Occasional (0-1) (None) Ur Culture Indicated? Specimen cultured Vol Urine Centrifuged 10ml (spun) Chlamy pneumoniae PCR (Not Detect) Adenovirus (PCR) (Not Detect) B.parapertussis DNA PCR (Not Detecte) Coronavirus OC43 (PCR) (Not Detect) Coronavirus HKU1 (PCR) (Not Detect) Coronavirus 229E (PCR) (Not Detect) SARS-CoV-2 (PCR) (Not Detecte) Coronavirus NL63 (PCR) (Not Detect) Human Metapneumovir PCR (Not Detect) Influenza Type A (PCR) (Not Detect) Influenza Type B (PCR) (Not Detect) M. pneumoniae (PCR) (Not Detect) Parainfluenza 1 (PCR) (Not Detect) Parainfluenza 2 (PCR) (Not Detect) Parainfluenza 3 (PCR) (Not Detect) Parainfluenza 4 (PCR) (Not Detect) RSV (PCR) (Not Detect) Entero/Rhino (PCR) (Not Detect) 08/30/24 Range/Units 22:10 WBC (4.5-11.0) X10^3/uL RBC (4.5-5.9) X10^6/uL Hgb (13.5-17.5) g/dL Hct (41-53) % MCV (80-100) fL MCH (26-34) PG MCHC (30-36) % RDW (11.6-14.8) % Plt Count (150-400) X10^3/uL Neut % (Auto) (50-75) % Lymph % (Auto) (25-40) % [place] % (Auto) (3-14) % Eos % (Auto) (2-4) % Baso % (Auto) (0-2) % Neut # (Auto) (6759-8830) /uL Lymph # (Auto) (8475-2202) /uL [place] # (Auto) (0-900) /uL Eos # (Auto) (0-450) /uL Baso # (Auto) (0-100) /uL RBC Morphology Anisocytosis PT (9.4-12.5) SECONDS INR (0.9-1.3) APTT 37 H (25.1-36.5) SECONDS Sodium (137-145) mmol/L Potassium (3.4-5.1) mmol/L Chloride (98-107) mmol/L Carbon Dioxide (22-32) mmol/L BUN (9-20) mg/dL Creatinine (0.66-1.25) mg/dL Estimated GFR (>60) mL/min BUN/Creatinine Ratio (6-22) Glucose (80-110) mg/dL Lactate (0.7-2.1) mmol/L Calcium (8.4-10.2) mg/dL Magnesium (1.6-2.3) mg/dL Total Bilirubin (0.2-1.3) mg/dL AST (17-59) IU/L ALT (<50) IU/L Alkaline Phosphatase (38-126) U/L Total Creatine Kinase (55-170) U/L Troponin I (0.01-0.034) ng/mL NT-Pro-B Natriuret Pep (<450) pg/mL Total Protein (6.3-8.2) g/dL Albumin (3.5-5.0) g/dL Globulin (1.7-4.1) g/dL Albumin/Globulin Ratio (1.0-2.8) Lipase (23-300) U/L Procalcitonin (<0.5) ng/mL Urine Color Urine Appearance Urine pH (4.5-8.0) Ur Specific [place] (1.000-1.035) Urine Protein (Negative) Urine Glucose (UA) (Negative) g/dL Urine Ketones (NEGATIVE) Urine Occult Blood (Negative) Urine Nitrate (Negative) Urine Bilirubin (NEGATIVE) Urine Urobilinogen (0.2) E.U./dL Ur Leukocyte Esterase (NEGATIVE) Urine RBC (0-5/HPF) Urine WBC (0-5/HPF) Ur Squamous Epith Cells (0-5/HPF) Urine Bacteria (None) Ur Culture Indicated? Vol Urine Centrifuged Chlamy pneumoniae PCR (Not Detect) Adenovirus (PCR) (Not Detect) B.parapertussis DNA PCR (Not Detecte) Coronavirus OC43 (PCR) (Not Detect) Coronavirus HKU1 (PCR) (Not Detect) Coronavirus 229E (PCR) (Not Detect) SARS-CoV-2 (PCR) (Not Detecte) Coronavirus NL63 (PCR) (Not Detect) Human Metapneumovir PCR (Not Detect) Influenza Type A (PCR) (Not Detect) Influenza Type B (PCR) (Not Detect) M. pneumoniae (PCR) (Not Detect) Parainfluenza 1 (PCR) (Not Detect) Parainfluenza 2 (PCR) (Not Detect) Parainfluenza 3 (PCR) (Not Detect) Parainfluenza 4 (PCR) (Not Detect) RSV (PCR) (Not Detect) Entero/Rhino (PCR) (Not Detect) Imaging Data Chest x-ray: Radiologist's Impression: [address] [address] XRay Report Signed Patient: Hadley Wilkes MR#: [id number] : 1945 Acct:[id number] Age/Sex: 79 / M Date of Service: 02/20/24 Loc: ED Accession Number: [id number] Procedure: XR chest 1V Ordering Provider: Jose Carlos Conte MD PROCEDURE: XR CHEST 1V INDICATIONS: chest pain TECHNIQUE: One view of the chest was acquired. COMPARISON: [facility], XR CHEST 1V, 01/24/2023, 19:15. [facility], CR, XR CHEST 1V, 08/08/2022, 21:43. FINDINGS: Surgical changes and devices: None. Lungs and pleura: Lungs are clear on the right but there is increased radiodensity at the left lung base laterally.. No pleural effusions or pneumothorax. Mediastinum: Mediastinal contours appear normal. Heart size is normal. Bones and chest wall: No suspicious bony lesions. Overlying soft tissues appear unremarkable. IMPRESSION: Possible mild or early pneumonia lateral left lower lobe abutting the diaphragm. Dictated by: Suman Burrows M.D. on 02/20/2024 at 15:59 Approved by: Suman Burrows M.D. on 02/20/2024 at 15:59 [facility] Narrative Medical decision making narrative: Patient here with . Complains of shortness of breath chest discomfort with lying flat. No fever cough congestion. Patient has significant history of atrial fibrillation stroke coronary artery disease cardiac stents. Patient denies any exertional chest pain. Has generalized chest discomfort. Patient is in physical rehab. Uses 2 canes and is short of breath with walking but uncertain if this is new. He denies any chest pain with exertion or walking. After history and exam CBC CMP troponin x2 EKG chest x-ray respiratory panel lactic acid procalcitonin [facility] Medical records reviewed: No recent visit for this complaint Differential considered: Includes but not limited to STEMI non-STEMI sepsis pneumonia or respiratory infection viral syndrome Lab Test results independently reviewed as above. Pertinent findings: WBC 11.7 hemoglobin 10.6 INR 1.1 sodium 140 potassium 4.4 BUN 63 creatinine 0.96 GFR greater than 60 glucose 93 troponin 0.07 repeat troponin 0.09 Respiratory panel Independently reviewed EKG sinus rhythm rate [address] elevation or depression Imaging studies independently reviewed: Chest x-ray early pneumonia lateral left lower lobe Consultations: See notes below Treatments: See nurse's note Re-evaluations: Updated patient results and treatment plan Discussion: Appropriate for transfer for higher level of care. Diagnosis: Non-STEMI 6:00 p.m.. Dg: Sign out to Dr Renee, respiratory panel pending, repeat troponin needs to be reviewed with patient's cardiology services in [place]. Dr renee: Received turned over. Review patient's history and physical and workup up to this point. 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 It appears that he was having chest discomfort and generally not feeling very well. His troponins have been steadily rising. Last 1 has met the threshold for NSTEMI. No ischemic changes on his EKG. He was started on heparin. I did discuss the case with Dr. Bass who is Cardiology on-call at 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 I then discussed the case with Dr. Cuevas hospitalist on-call who will admit for further evaluation treatment. Patient is stable for transport. <Spike Renee, DO - Last Filed: 02/21/24 01:34> Lab Data Labs: Lab Results 02/20/24 02/20/24 02/20/24 Range/Units 15:05 15:31 16:50 WBC 11.7 H (4.5-11.0) X10^3/uL RBC 3.26 L (4.5-5.9) X10^6/uL Hgb 10.6 L (13.5-17.5) g/dL Hct 32.4 L (41-53) % MCV 99.4 (80-100) fL MCH 32.5 (26-34) PG MCHC 32.7 (30-36) % RDW 19.2 H (11.6-14.8) % Plt Count 221 (150-400) X10^3/uL Neut % (Auto) 67.7 (50-75) % Lymph % (Auto) 18.5 L (25-40) % [place] % (Auto) 11.4 (3-14) % Eos % (Auto) 1.6 L (2-4) % Baso % (Auto) 0.8 (0-2) % Neut # (Auto) 8000 H (5645-9261) /uL Lymph # (Auto) 2200 (0816-7878) /uL [place] # (Auto) 1300 H (0-900) /uL Eos # (Auto) 200 (0-450) /uL Baso # (Auto) 100 (0-100) /uL RBC Morphology See below Anisocytosis 1+ H PT 13.0 H (9.4-12.5) SECONDS INR 1.1 (0.9-1.3) APTT 39 H (25.1-36.5) SECONDS Sodium 140 (137-145) mmol/L Potassium 4.4 (3.4-5.1) mmol/L Chloride 109 H (98-107) mmol/L Carbon Dioxide 23 (22-32) mmol/L BUN 63 H (9-20) mg/dL Creatinine 0.96 (0.66-1.25) mg/dL Estimated GFR > 60 (>60) mL/min BUN/Creatinine Ratio 65.6 H (6-22) Glucose 93 (80-110) mg/dL Lactate 2.0 (0.7-2.1) mmol/L Calcium 9.0 (8.4-10.2) mg/dL Magnesium 2.1 (1.6-2.3) mg/dL Total Bilirubin 0.2 (0.2-1.3) mg/dL AST 24 (17-59) IU/L ALT 22 (<50) IU/L Alkaline Phosphatase 72 (38-126) U/L Total Creatine Kinase 273 H (55-170) U/L Troponin I 0.070 H (0.01-0.034) ng/mL NT-Pro-B Natriuret Pep 139 (<450) pg/mL Total Protein 7.3 (6.3-8.2) g/dL Albumin 3.8 (3.5-5.0) g/dL Globulin 3.5 (1.7-4.1) g/dL Albumin/Globulin Ratio 1.1 (1.0-2.8) Lipase 91 (23-300) U/L Procalcitonin 0.117 (<0.5) ng/mL Urine Color Urine Appearance Urine pH (4.5-8.0) Ur Specific [place] (1.000-1.035) Urine Protein (Negative) Urine Glucose (UA) (Negative) g/dL Urine Ketones (NEGATIVE) Urine Occult Blood (Negative) Urine Nitrate (Negative) Urine Bilirubin (NEGATIVE) Urine Urobilinogen (0.2) E.U./dL Ur Leukocyte Esterase (NEGATIVE) Urine RBC (0-5/HPF) Urine WBC (0-5/HPF) Ur Squamous Epith Cells (0-5/HPF) Urine Bacteria (None) Ur Culture Indicated? Vol Urine Centrifuged Chlamy pneumoniae PCR Not detected (Not Detect) Adenovirus (PCR) Not detected (Not Detect) B.parapertussis DNA PCR Not detected (Not Detecte) Coronavirus OC43 (PCR) Not detected (Not Detect) Coronavirus HKU1 (PCR) Not detected (Not Detect) Coronavirus 229E (PCR) Not detected (Not Detect) SARS-CoV-2 (PCR) Not detected (Not Detecte) Coronavirus NL63 (PCR) Not detected (Not Detect) Human Metapneumovir PCR Not detected (Not Detect) Influenza Type A (PCR) Not detected (Not Detect) Influenza Type B (PCR) Not detected (Not Detect) M. pneumoniae (PCR) Not detected (Not Detect) Parainfluenza 1 (PCR) Not detected (Not Detect) Parainfluenza 2 (PCR) Not detected (Not Detect) Parainfluenza 3 (PCR) Not detected (Not Detect) Parainfluenza 4 (PCR) Not detected (Not Detect) RSV (PCR) Not detected (Not Detect) Entero/Rhino (PCR) Not detected (Not Detect) 02/20/24 02/20/24 02/20/24 Range/Units 17:00 19:30 20:25 WBC (4.5-11.0) X10^3/uL RBC (4.5-5.9) X10^6/uL Hgb (13.5-17.5) g/dL Hct (41-53) % MCV (80-100) fL MCH (26-34) PG MCHC (30-36) % RDW (11.6-14.8) % Plt Count (150-400) X10^3/uL Neut % (Auto) (50-75) % Lymph % (Auto) (25-40) % [place] % (Auto) (3-14) % Eos % (Auto) (2-4) % Baso % (Auto) (0-2) % Neut # (Auto) (1176-9937) /uL Lymph # (Auto) (0565-5074) /uL [place] # (Auto) (0-900) /uL Eos # (Auto) (0-450) /uL Baso # (Auto) (0-100) /uL RBC Morphology Anisocytosis PT (9.4-12.5) SECONDS INR (0.9-1.3) APTT (25.1-36.5) SECONDS Sodium (137-145) mmol/L Potassium (3.4-5.1) mmol/L Chloride (98-107) mmol/L Carbon Dioxide (22-32) mmol/L BUN (9-20) mg/dL Creatinine (0.66-1.25) mg/dL Estimated GFR (>60) mL/min BUN/Creatinine Ratio (6-22) Glucose (80-110) mg/dL Lactate (0.7-2.1) mmol/L Calcium (8.4-10.2) mg/dL Magnesium (1.6-2.3) mg/dL Total Bilirubin (0.2-1.3) mg/dL AST (17-59) IU/L ALT (<50) IU/L Alkaline Phosphatase (38-126) U/L Total Creatine Kinase 220 H (55-170) U/L Troponin I 0.092 H 0.120 H (0.01-0.034) ng/mL NT-Pro-B Natriuret Pep (<450) pg/mL Total Protein (6.3-8.2) g/dL Albumin (3.5-5.0) g/dL Globulin (1.7-4.1) g/dL Albumin/Globulin Ratio (1.0-2.8) Lipase (23-300) U/L Procalcitonin (<0.5) ng/mL Urine Color Yellow Urine Appearance Clear Urine pH 5.5 (4.5-8.0) Ur Specific [place] 1.015 (1.000-1.035) Urine Protein Negative (Negative) Urine Glucose (UA) Negative (Negative) g/dL Urine Ketones Negative (NEGATIVE) Urine Occult Blood Negative (Negative) Urine Nitrate Negative (Negative) Urine Bilirubin Negative (NEGATIVE) Urine Urobilinogen 0.2 (0.2) E.U./dL Ur Leukocyte Esterase Trace H (NEGATIVE) Urine RBC None seen (0-5/HPF) Urine WBC 1-5/hpf (0-5/HPF) Ur Squamous Epith Cells 1-5 /hpf (0-5/HPF) Urine Bacteria Occasional (0-1) (None) Ur Culture Indicated? Specimen cultured Vol Urine Centrifuged 10ml (spun) Chlamy pneumoniae PCR (Not Detect) Adenovirus (PCR) (Not Detect) B.parapertussis DNA PCR (Not Detecte) Coronavirus OC43 (PCR) (Not Detect) Coronavirus HKU1 (PCR) (Not Detect) Coronavirus 229E (PCR) (Not Detect) SARS-CoV-2 (PCR) (Not Detecte) Coronavirus NL63 (PCR) (Not Detect) Human Metapneumovir PCR (Not Detect) Influenza Type A (PCR) (Not Detect) Influenza Type B (PCR) (Not Detect) M. pneumoniae (PCR) (Not Detect) Parainfluenza 1 (PCR) (Not Detect) Parainfluenza 2 (PCR) (Not Detect) Parainfluenza 3 (PCR) (Not Detect) Parainfluenza 4 (PCR) (Not Detect) RSV (PCR) (Not Detect) Entero/Rhino (PCR) (Not Detect) 02/20/24 Range/Units 22:10 WBC (4.5-11.0) X10^3/uL RBC (4.5-5.9) X10^6/uL Hgb (13.5-17.5) g/dL Hct (41-53) % MCV (80-100) fL MCH (26-34) PG MCHC (30-36) % RDW (11.6-14.8) % Plt Count (150-400) X10^3/uL Neut % (Auto) (50-75) % Lymph % (Auto) (25-40) % [place] % (Auto) (3-14) % Eos % (Auto) (2-4) % Baso % (Auto) (0-2) % Neut # (Auto) (1410-7065) /uL Lymph # (Auto) (5954-5598) /uL [place] # (Auto) (0-900) /uL Eos # (Auto) (0-450) /uL Baso # (Auto) (0-100) /uL RBC Morphology Anisocytosis PT (9.4-12.5) SECONDS INR (0.9-1.3) APTT 37 H (25.1-36.5) SECONDS Sodium (137-145) mmol/L Potassium (3.4-5.1) mmol/L Chloride (98-107) mmol/L Carbon Dioxide (22-32) mmol/L BUN (9-20) mg/dL Creatinine (0.66-1.25) mg/dL Estimated GFR (>60) mL/min BUN/Creatinine Ratio (6-22) Glucose (80-110) mg/dL Lactate (0.7-2.1) mmol/L Calcium (8.4-10.2) mg/dL Magnesium (1.6-2.3) mg/dL Total Bilirubin (0.2-1.3) mg/dL AST (17-59) IU/L ALT (<50) IU/L Alkaline Phosphatase (38-126) U/L Total Creatine Kinase (55-170) U/L Troponin I (0.01-0.034) ng/mL NT-Pro-B Natriuret Pep (<450) pg/mL Total Protein (6.3-8.2) g/dL Albumin (3.5-5.0) g/dL Globulin (1.7-4.1) g/dL Albumin/Globulin Ratio (1.0-2.8) Lipase (23-300) U/L Procalcitonin (<0.5) ng/mL Urine Color Urine Appearance Urine pH (4.5-8.0) Ur Specific [place] (1.000-1.035) Urine Protein (Negative) Urine Glucose (UA) (Negative) g/dL Urine Ketones (NEGATIVE) Urine Occult Blood (Negative) Urine Nitrate (Negative) Urine Bilirubin (NEGATIVE) Urine Urobilinogen (0.2) E.U./dL Ur Leukocyte Esterase (NEGATIVE) Urine RBC (0-5/HPF) Urine WBC (0-5/HPF) Ur Squamous Epith Cells (0-5/HPF) Urine Bacteria (None) Ur Culture Indicated? Vol Urine Centrifuged Chlamy pneumoniae PCR (Not Detect) Adenovirus (PCR) (Not Detect) B.parapertussis DNA PCR (Not Detecte) Coronavirus OC43 (PCR) (Not Detect) Coronavirus HKU1 (PCR) (Not Detect) Coronavirus 229E (PCR) (Not Detect) SARS-CoV-2 (PCR) (Not Detecte) Coronavirus NL63 (PCR) (Not Detect) Human Metapneumovir PCR (Not Detect) Influenza Type A (PCR) (Not Detect) Influenza Type B (PCR) (Not Detect) M. pneumoniae (PCR) (Not Detect) Parainfluenza 1 (PCR) (Not Detect) Parainfluenza 2 (PCR) (Not Detect) Parainfluenza 3 (PCR) (Not Detect) Parainfluenza 4 (PCR) (Not Detect) RSV (PCR) (Not Detect) Entero/Rhino (PCR) (Not Detect) [facility] Narrative Medical decision making narrative: Patient here with . Complains of shortness of breath chest discomfort with lying flat. No fever cough congestion. Patient has significant history of atrial fibrillation stroke coronary artery disease cardiac stents. Patient denies any exertional chest pain. Has generalized chest discomfort. Patient is in physical rehab. Uses 2 canes and is short of breath with walking but uncertain if this is new. He denies any chest pain with exertion or walking. After history and exam CBC CMP troponin x2 EKG chest x-ray respiratory panel lactic acid procalcitonin [facility] Medical records reviewed: No recent visit for this complaint Differential considered: Includes but not limited to STEMI non-STEMI sepsis pneumonia or respiratory infection viral syndrome Lab Test results independently reviewed as above. Pertinent findings: WBC 11.7 hemoglobin 10.6 INR 1.1 sodium 140 potassium 4.4 BUN 63 creatinine 0.96 GFR greater than 60 glucose 93 troponin 0.07 repeat troponin 0.09 Respiratory panel Independently reviewed EKG sinus rhythm rate [address] elevation or depression Imaging studies independently reviewed: Chest x-ray early pneumonia lateral left lower lobe Consultations: Treatments: Re-evaluations: Discussion: Diagnosis: 6:00 p.m.. Frankick: Sign out to Dr Renee, respiratory panel pending, repeat troponin needs to be reviewed with patient's cardiology services in [place]. Dr renee: Received turned over. Review patient's history and physical and workup up to this point. 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 It appears that he was having chest discomfort and generally not feeling very well. His troponins have been steadily rising. Last 1 has met the threshold for NSTEMI. No ischemic changes on his EKG. He was started on heparin. I did discuss the case with Dr. Bass who is Cardiology on-call at 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 I then discussed the case with Dr. Cuevas hospitalist on-call who will admit for further evaluation treatment. Patient is stable for transport. Critical Care Time <Spike Renee DO - Last Filed: 02/21/24 01:34> Critical Care Time Critical Care Time: Yes Total Critical Care Time: 35 Attestation: The high probability of a clinically significant, sudden or life threatening deterioration of the [cardiovascular] system(s) required my full and direct attention, intervention and personal management. The aggregate critical care time was [35] minutes. This time is in addition to time spent performing reported procedures but includes the following: [x] Data Review and interpretation [x] Patient assessment and monitoring of vital signs [x] Documentation [x] Medication orders and management Discharge Plan Departure Patient Disposition: [facility] Clinical Impression: Non-ST elevation PA (NSTEMI) Prescriptions: No Action allopurinol 300 mg tablet 300 mg PO DAILY Qty: 90 3RF losartan 100 mg tablet 100 mg PO DAILY Qty: 90 3RF ICaps AREDS2 (copper citrate) 250 mg-200 unit -12.5 mg-1 mg tablet 1 tab PO BID Repatha SureClick 140 mg/mL pen injector 140 mg SUBCUT Q2W Patient Comments: [NO ORIGINAL SIG] aspirin 81 mg Tablet,Delayed Release (Dr/Ec) 81 mg PO DAILY acetaminophen 325 mg tablet 650 mg PO .8HR PRN (Reason: pain) acetaminophen 500 mg Tablet 500 mg PO QID PRN (Reason: Pain (Scale Score 4-6)) sertraline 50 mg Tablet 25 mg PO DAILY Prostate Formula Tablet 1 tab PO DAILY PreserVision AREDS 2 Plus MV 200 mcg-15 mcg- 5 mg-1 mg Capsule 1 cap PO DAILY tramadol 50 mg tablet 50 mg PO QPM hydrochlorothiazide 25 mg tablet 25 mg PO DAILY carvedilol 12.5 mg tablet 12.5 mg PO BID Referrals: Camacho Smith MD [Primary Care Provider] -
[2024-02-20 17:20] LABS: Procalcitonin 0.117 ng/mL (<0.5)
[2024-02-20 18:02] LABS: Troponin I 0.092 ng/mL (0.01-0.034)
[2024-02-20 18:21] LABS: Adenovirus Not Detected (Not Detect); B. parapertussis Not Detected (Not Detecte); Bordetella pertussis Not Detected (Not Detect); Chlamydophila pneumoniae Not Detected (Not Detect); Coronavirus 229E Not Detected (Not Detect); Coronavirus HKU1 Not Detected (Not Detect); Coronavirus NL 63 Not Detected (Not Detect); Coronavirus OC43 Not Detected (Not Detect); Human Metapneumovirus Not Detected (Not Detect); Human Rhinovirus/Enterovirus Not Detected (Not Detect); Influenza A Not Detected (Not Detect); Influenza B Not Detected (Not Detect); Mycoplasma pneumoniae Not Detected (Not Detect); Parainfluenza Virus 1 Not Detected (Not Detect); Parainfluenza Virus 2 Not Detected (Not Detect); Parainfluenza Virus 3 Not Detected (Not Detect); Parainfluenza Virus 4 Not Detected (Not Detect); Respiratory Syncytial Virus Not Detected (Not Detect); SARS- CoV-2 Not Detected (Not Detecte)
[2024-02-20 19:57] LABS: Appearance Urine UA CLEAR; Bilirubin Urine UA NEGATIVE (NEGATIVE); Color Urine UA YELLOW; Glucose Urine UA NEGATIVE (Negative); Ketones Urine UA NEGATIVE (NEGATIVE); Leukocyte Esterase Urine UA TRACE (NEGATIVE); Nitrite Urine UA NEGATIVE (Negative); Occult Blood Urine UA NEGATIVE (Negative); Protein Urine UA NEGATIVE (Negative); Specific Gravity Urine UA 1.015 (1.000-1.035); Urobilinogen Urine UA 0.2 E.U./dL (0.2); pH Urine UA 5.5 (4.5-8.0)
[2024-02-20 20:10] LABS: Urine Volume 10mL (spun)
[2024-02-20 20:12] LABS: Bacteria Urine Occasional (0-1); Culture Indicated Urine Specimen Cultured; RBC Urine None Seen (0-5/HPF); Squamous Epithelial Cell Urine 1-5 /HPF (0-5/HPF); WBC Urine 1-5/HPF (0-5/HPF)
[2024-02-20 20:45] LABS: Creatine Kinase 220 U/L (55-170)
[2024-02-20] MEDS: HEPARIN 5,000 UNIT/ML VIAL 5000 UNIT IV (22:14)
[2024-02-20] MEDS: HEPARIN DRIP 25,000 UNIT/500 ML IV.SOLN 20 UNIT IV (22:27)
[2024-02-20 22:39] LABS: PTT Partial Thromboplastin Tim 37 SECONDS (25.1-36.5)
[2024-02-21] VITALS: BP 123/74; PULSE 67; RESP 23; O2SAT 93
[2024-02-21 00:30] VITALS: BP 134/71; PULSE 64; RESP 20; O2SAT 93
[2024-02-21 01:00] VITALS: BP 135/74; PULSE 62; RESP 21; O2SAT 93
[2024-02-21 01:30] VITALS: BP 132/78; PULSE 66; RESP 17; O2SAT 95
--- NOTE | 2024-02-21 01:39 | PC.NURSE ---
Report given to Sofia MCCOY
[2024-02-21] MEDS: ASPIRIN 81 MG CHEW TAB 324 MG PO (01:40)
--- NOTE | 2024-02-21 01:51 | PC.NURSE ---
Heparin continuing en route
== END 2024-02-21 01:51 | disposition short-term general hospital (02) ==
PROVIDERS: Emergency Medicine; Emergency Provider Emergency Medicine; Family Provider Student in an Organized Health Care Education/Training Program; PCP Internal Medicine
DX: I21.4 Non-ST elevation (NSTEMI) myocardial infarction (principal); R07.9 Chest pain, unspecified; Z95.5 Presence of coronary angioplasty implant and graft; Z11.52 Encounter for screening for COVID-19
CPT/HCPCS: 36415; 71045; 80053; 81001; 82550; 83605; 83690; 83735; 83880; 84145; 84484; 85025; 85610; 85730; 87040; 87077; 87086; 87186; 87633; 93005; 96365; 96366; 96375; 99284; 99291; J1644

== ENCOUNTER 2024-03-01 10:05 | Emergency (ER) | payer MEDICARE, OTHER, SELFPAY ==
[2023-02-20 16:04] VITALS: BMI 39.9
[2024-03-01] VITALS (27 sets, daily range): BP systolic 86–144; BP diastolic 51–72; PULSE 63–75; RESP 12–25; TEMP 36.6–36.8; O2SAT 93–98; BMI 29.2
--- NOTE | 2024-03-01 10:26 | DI.RAD.S_ITS ---
PROCEDURE: XR KNEE RT 3V INDICATIONS: R knee pain after fall TECHNIQUE: 3 views of the knee were acquired. COMPARISON: [facility], CR, XR KNEE LT 3V, 12/24/2023, 16:23. FINDINGS: Bones: No fractures or dislocations. No suspicious bony lesions. Moderate tricompartmental arthritic change. Small periarticular osteophytes. No erosions. Soft tissues: Mild joint effusion. No suspicious soft tissue calcifications. Chondrocalcinosis. IMPRESSION: No visualized acute fracture or dislocation. However, if clinical concern and/or pain persist, short interval imaging followup in 7-10 days is recommended, as occult injury cannot be definitively excluded. Dictated by: Shabnam Rudolph M.D. on 03/01/2024 at 12:18 Approved by: Shabnam Rudolph M.D. on 03/01/2024 at 12:19
--- NOTE | 2024-03-01 10:26 | DI.RAD.S_ITS ---
PROCEDURE: XR LUMBAR SPINE 2-3V INDICATIONS: LBP after fall TECHNIQUE: 3 views of the lumbar spine were acquired. COMPARISON: [facility], CR, XR LUMBAR SPINE MIN 4V, 06/08/2022, 13:41. FINDINGS: Bones: 5 [id number] vertebrae are present. There is multilevel degenerative disc and foraminal narrowing most severe at L4-5 and L5-S1. There is trace retrolisthesis of L4 on L5. Partially visualized bilateral hip arthroplasties. No vertebral body compression fractures. No suspicious bony lesions. Soft tissues: Overlying bowel gas pattern is normal. No suspicious soft tissue calcifications. IMPRESSION: Significant degenerative changes. No visualized acute fracture or dislocation. However, if clinical concern and/or pain persist, short interval imaging followup in 7-10 days is recommended, as occult injury cannot be definitively excluded. Dictated by: Shabnam Rudolph M.D. on 03/01/2024 at 12:00 Approved by: Shabnam Rudolph M.D. on 03/01/2024 at 12:17
--- NOTE | 2024-03-01 10:26 | ED_ITS ---
HPI - Fall <Spike Renee, DO - Last Filed: 03/02/24 18:34> General Chief Complaint: Fall Stated Complaint: Gen weak, GLF, recent cardiac stent Time Seen by Provider: 03/01/24 10:12 Source: patient and EMS Mode of arrival: Ambulatory History of Present Illness HPI Narrative: Patient is an 79-year-old male. It is reported that he was not on blood thinners although approximately 3 weeks ago he had a non ST elevation MA with subsequent stent placement. This was done at an outside facility. He spent a couple weeks and rehab afterwards and has been home since then. Had a reported fall this morning. Per reports from EMS he was trying to navigate to the bathroom. Could not get his walker into the bathroom and fell because of this. There were no reports of any head injuries but he does have a small abrasion on his forehead that was reported to have happened a couple days ago however the patient can not express any information about this fall. He was reporting pain in his right knee and bilateral hips. He also has significant expressive aphasia. Unsure as to how long this has been present although per report from EMS who talked with his it is actually been present for a couple weeks. There was some question that maybe this is a medication that is causing this. Because of the expressive aphasia is very difficult to obtain history from the patient. He was also having low back pain. He did express that he was not having chest pain or shortness of breath. Related Data Home Medications Medication Instructions Recorded Confirmed aspirin 81 mg tablet,delayed 81 mg PO DAILY 08/12/18 03/02/24 release carvedilol 12.5 mg tablet 12.5 mg PO BID 05/20/22 03/01/24 evolocumab 140 mg/mL subcutaneous 140 mg SUBCUT Q2W 11/18/23 03/02/24 pen injector (Danni Gomez) sertraline 50 mg tablet 25 mg PO DAILY 02/21/24 03/02/24 tramadol 50 mg tablet 50 mg PO Q6HR PRN Pain, Moderate 02/21/24 03/01/24 allopurinol 300 mg tablet 300 mg PO DAILY 03/01/24 03/01/24 ezetimibe 10 mg tablet 10 mg PO DAILY 03/01/24 03/01/24 losartan 100 mg tablet 50 mg PO DAILY 03/01/24 03/01/24 ticagrelor 90 mg tablet (Brilinta) 90 mg PO BID 03/01/24 03/01/24 Allergies Allergy/AdvReac Type Severity Reaction Status Date / Time prednisone Allergy Severe Confusion Verified 03/01/24 20:20 celecoxib [From Celebrex] Allergy Intermediate Gastrointestinal Verified 03/01/24 20:20 Upset oxycodone [From Percocet] Allergy Intermediate Nausea Verified 03/01/24 20:20 Axjizps-QDX-[id number] Reductase AdvReac Severe Autoimmune Verified 03/01/24 20:20 Inhibitor myositis [Qefcelt-Txh-Tgf Reductase Inhibitor] codeine AdvReac Mild Redness of Verified 03/01/24 20:20 Skin icosapent ethyl AdvReac Mild Nausea Verified 03/01/24 20:20 Review of Systems <Spike Renee DO - Last Filed: 03/02/24 18:34> Review of Systems Narrative: See HPI. Very limited given his expressive aphasia Patient History <Spike Renee DO - Last Filed: 03/02/24 18:34> Medical History Left knee pain Iron deficiency anemia Reactive depression Cerebrovascular disease Gait instability Anemia Primary osteoarthritis involving multiple joints Gout Mixed hyperlipidemia Essential hypertension Chronic anticoagulation Paroxysmal atrial fibrillation Hx of non-ST elevation myocardial infarction (NSTEMI) Low back pain Kidney stones Coronary artery disease Surgical History Hx of cardiac catheterization H/O lithotripsy Hx of appendectomy Family History Mother Renal cancer Father War operations involving destruction of aircraft due to collision with other aircraft, personnel, sequela Social History details: (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), 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 household members: spouse Smoking Status: Former smoker alcohol intake: current Smoking Status: Former smoker alcohol intake frequency: holidays/special occasions only Substance Use Type: does not use Exam <Spike Renee DO - Last Filed: 03/02/24 18:34> Initial Vital Signs Initial Vital Signs: Vital Signs Temperature 97.9 F 03/01/24 10:06 Pulse Rate 75 03/01/24 10:06 Respiratory Rate 25 H 03/01/24 10:06 Blood Pressure 100/61 03/01/24 10:06 Pulse Oximetry 93 03/01/24 10:06 Oxygen Delivery Method Room Air 03/01/24 10:06 Const General: cooperative, comfortable and No ill appearing HENMT Head: normal to inspection and normocephalic Resp Effort & Inspection: normal respiratory effort Auscultation: clear to auscultation bilaterally Cardio Rate: regular rate Rhythm: regular rhythm GI Inspection: normal to inspection and non-distended Back/Spine/Pelvis Cervical Spine: No cervical spinal tenderness Thoracic/Lumbar Spine: lumbar spinal tenderness Skin Other: Small abrasion midline forehead Neuro General: patient alert and patient awake Other: See NIH scale Extrem Other: No gross deformities <Nata Corral MD - Last Filed: 03/03/24 06:42> Initial Vital Signs Initial Vital Signs: Vital Signs Temperature 97.9 F 03/01/24 10:06 Pulse Rate 75 03/01/24 10:06 Respiratory Rate 25 H 03/01/24 10:06 Blood Pressure 100/61 03/01/24 10:06 Pulse Oximetry 93 03/01/24 10:06 Oxygen Delivery Method Room Air 03/01/24 10:06 <Jose Carlos Conte MD - Last Filed: 03/26/24 11:46> Initial Vital Signs Initial Vital Signs: Vital Signs Temperature 97.9 F 03/01/24 10:06 Pulse Rate 75 03/01/24 10:06 Respiratory Rate 25 H 03/01/24 10:06 Blood Pressure 100/61 03/01/24 10:06 Pulse Oximetry 93 03/01/24 10:06 Oxygen Delivery Method Room Air 03/01/24 10:06 Scores <Spike Renee DO - Last Filed: 03/02/24 18:34> NIH Stroke Scale Level of Conciousness: Alert, keenly responsive Ask month/age: Answers neither question correctly, aphasic, stuporous, coma Open/close eyes, close hand: Performs both tasks correctly Best gaze horizontal: Normal Visual luque: No visual loss Facial palsy: Normal symetrical movement Left arm drift: No drift for full 10 sec Right arm drift: No drift for full 10 sec Left leg drift: No effort against gravity Right leg drift: No effort against gravity Limb ataxia: Present in two limbs Sensory on face/arms/legs: Normal, no sensory loss Best language: Severe aphasia, not much is understood, fragmented Dysarthria: Normal Extinction or inattention: No abnormality Total NIH Stroke scale score: 12 <Nata Corral MD - Last Filed: 03/03/24 06:42> NIH Stroke Scale Total NIH Stroke scale score: 12 <Jose Carlos Conte MD - Last Filed: 03/26/24 11:46> NIH Stroke Scale Total NIH Stroke scale score: 12 Course <Spike Renee DO - Last Filed: 03/02/24 18:34> Orders Ordered: Discontinued Medications Allopurinol (Allopurinol 100 Mg Tablet) 300 mg PO DAILY [facility] Last Admin: 03/03/24 08:19 Dose: 300 mg Documented By: ANA Aspirin (Aspirin Ec 81 Mg Tablet) 81 mg PO NOW ONE Stop: 03/01/24 20:33 Last Admin: 03/01/24 21:41 Dose: 81 mg Documented By: SOUMYA Aspirin (Aspirin Ec 81 Mg Tablet) 81 mg PO DAILY [facility] Last Admin: 03/03/24 08:19 Dose: 81 mg Documented By: Admin: 03/02/24 15:47 Dose: 81 mg Documented By: SOUMYA Carvedilol (Carvedilol 12.5 Mg Tablet) 12.5 mg PO NOW ONE Stop: 03/01/24 20:31 Last Admin: 03/01/24 21:41 Dose: 12.5 mg Documented By: SOUMYA Carvedilol (Carvedilol 12.5 Mg Tablet) 12.5 mg PO BID [facility] Last Admin: 03/03/24 08:18 Dose: 12.5 mg Documented By: Admin: 03/02/24 21:12 Dose: 12.5 mg Documented By: SARAH Ezetimibe (Ezetimibe 10 Mg Tablet) 10 mg PO NOW ONE Stop: 03/01/24 20:34 Last Admin: 03/01/24 21:40 Dose: 10 mg Documented By: SOUMYA Ezetimibe (Ezetimibe 10 Mg Tablet) 10 mg PO DAILY [facility] Last Admin: 03/03/24 08:18 Dose: 10 mg Documented By: Admin: 03/02/24 15:46 Dose: 10 mg Documented By: SOUMYA Losartan Potassium (Losartan 50 Mg Tablet) 50 mg PO NOW ONE Stop: 03/01/24 20:32 Last Admin: 03/01/24 21:41 Dose: 50 mg Documented By: SOUMYA Losartan Potassium (Losartan 50 Mg Tablet) 50 mg PO DAILY [facility] Last Admin: 03/03/24 08:11 Dose: 50 mg Documented By: Admin: 03/02/24 15:47 Dose: 50 mg Documented By: SOUMYA Naloxone HCl (Naloxone 0.4 Mg/Ml Vial) 0.2 mg IV Q2MIN PRN PRN Reason: Opiate Reversal Non-Formulary Medication (Brilinta) 90 mg PO BID [facility] Last Admin: 03/03/24 08:19 Dose: 90 mg Documented By: Admin: 03/02/24 21:14 Dose: 90 mg Documented By: SARAH Sertraline HCl (Sertraline 50 Mg Tablet) 50 mg PO BEDTIME [facility] Last Admin: 03/02/24 21:14 Dose: 50 mg Documented By: Admin: 03/01/24 21:41 Dose: 50 mg Documented By: SOUMYA Tramadol HCl (Tramadol 50 Mg Tablet) 50 mg PO NOW ONE Stop: 03/01/24 20:31 Last Admin: 03/01/24 21:41 Dose: 50 mg Documented By: SOUMYA Tramadol HCl (Tramadol 50 Mg Tablet) 50 mg PO Q6HR PRN PRN Reason: Pain, Moderate (4-6) Vital Signs Vital signs: Vital Signs - 8 hr 03/03/24 03:54 03/03/24 04:01 03/03/24 04:08 Temperature Pulse Rate 69 64 Respiratory Rate Blood Pressure 119/78 Pulse Oximetry 95 93 Oxygen Delivery Method Room Air 03/03/24 04:30 03/03/24 05:00 03/03/24 05:30 Temperature Pulse Rate 61 61 61 Respiratory Rate Blood Pressure Pulse Oximetry 93 95 96 Oxygen Delivery Method Room Air 03/03/24 06:10 03/03/24 06:12 03/03/24 06:12 Temperature Pulse Rate 64 62 Respiratory Rate Blood Pressure 139/76 Pulse Oximetry 95 95 Oxygen Delivery Method 03/03/24 06:30 03/03/24 07:00 03/03/24 07:00 Temperature Pulse Rate 60 59 L Respiratory Rate 17 Blood Pressure Pulse Oximetry 96 95 Oxygen Delivery Method Room Air 03/03/24 07:30 03/03/24 08:00 03/03/24 08:00 Temperature Pulse Rate 59 L 65 Respiratory Rate Blood Pressure Pulse Oximetry 95 95 Oxygen Delivery Method Room Air 03/03/24 08:12 03/03/24 08:12 03/03/24 08:20 Temperature 98.1 F Pulse Rate 66 62 Respiratory Rate 18 Blood Pressure 144/77 H 144/77 H Pulse Oximetry 96 95 Oxygen Delivery Method <Nata Corral MD - Last Filed: 03/03/24 06:42> Orders Ordered: Discontinued Medications Allopurinol (Allopurinol 100 Mg Tablet) 300 mg PO DAILY [facility] Last Admin: 03/03/24 08:19 Dose: 300 mg Documented By: ANA Aspirin (Aspirin Ec 81 Mg Tablet) 81 mg PO NOW ONE Stop: 03/01/24 20:33 Last Admin: 03/01/24 21:41 Dose: 81 mg Documented By: SOUMYA Aspirin (Aspirin Ec 81 Mg Tablet) 81 mg PO DAILY [facility] Last Admin: 03/03/24 08:19 Dose: 81 mg Documented By: Admin: 03/02/24 15:47 Dose: 81 mg Documented By: SOUMYA Carvedilol (Carvedilol 12.5 Mg Tablet) 12.5 mg PO NOW ONE Stop: 03/01/24 20:31 Last Admin: 03/01/24 21:41 Dose: 12.5 mg Documented By: SOUMYA Carvedilol (Carvedilol 12.5 Mg Tablet) 12.5 mg PO BID [facility] Last Admin: 03/03/24 08:18 Dose: 12.5 mg Documented By: Admin: 03/02/24 21:12 Dose: 12.5 mg Documented By: SARAH Ezetimibe (Ezetimibe 10 Mg Tablet) 10 mg PO NOW ONE Stop: 03/01/24 20:34 Last Admin: 03/01/24 21:40 Dose: 10 mg Documented By: SOUMYA Ezetimibe (Ezetimibe 10 Mg Tablet) 10 mg PO DAILY [facility] Last Admin: 03/03/24 08:18 Dose: 10 mg Documented By: Admin: 03/02/24 15:46 Dose: 10 mg Documented By: SOUMYA Losartan Potassium (Losartan 50 Mg Tablet) 50 mg PO NOW ONE Stop: 03/01/24 20:32 Last Admin: 03/01/24 21:41 Dose: 50 mg Documented By: SOUMYA Losartan Potassium (Losartan 50 Mg Tablet) 50 mg PO DAILY [facility] Last Admin: 03/03/24 08:11 Dose: 50 mg Documented By: Admin: 03/02/24 15:47 Dose: 50 mg Documented By: SOUMYA Naloxone HCl (Naloxone 0.4 Mg/Ml Vial) 0.2 mg IV Q2MIN PRN PRN Reason: Opiate Reversal Non-Formulary Medication (Brilinta) 90 mg PO BID [facility] Last Admin: 03/03/24 08:19 Dose: 90 mg Documented By: Admin: 03/02/24 21:14 Dose: 90 mg Documented By: SARAH Sertraline HCl (Sertraline 50 Mg Tablet) 50 mg PO BEDTIME [facility] Last Admin: 03/02/24 21:14 Dose: 50 mg Documented By: Admin: 03/01/24 21:41 Dose: 50 mg Documented By: SOUMYA Tramadol HCl (Tramadol 50 Mg Tablet) 50 mg PO NOW ONE Stop: 03/01/24 20:31 Last Admin: 03/01/24 21:41 Dose: 50 mg Documented By: SOUMYA Tramadol HCl (Tramadol 50 Mg Tablet) 50 mg PO Q6HR PRN PRN Reason: Pain, Moderate (4-6) Vital Signs Vital signs: Vital Signs - 8 hr 03/03/24 03:54 03/03/24 04:01 03/03/24 04:08 Temperature Pulse Rate 69 64 Respiratory Rate Blood Pressure 119/78 Pulse Oximetry 95 93 Oxygen Delivery Method Room Air 03/03/24 04:30 03/03/24 05:00 03/03/24 05:30 Temperature Pulse Rate 61 61 61 Respiratory Rate Blood Pressure Pulse Oximetry 93 95 96 Oxygen Delivery Method Room Air 03/03/24 06:10 03/03/24 06:12 03/03/24 06:12 Temperature Pulse Rate 64 62 Respiratory Rate Blood Pressure 139/76 Pulse Oximetry 95 95 Oxygen Delivery Method 03/03/24 06:30 03/03/24 07:00 03/03/24 07:00 Temperature Pulse Rate 60 59 L Respiratory Rate 17 Blood Pressure Pulse Oximetry 96 95 Oxygen Delivery Method Room Air 03/03/24 07:30 03/03/24 08:00 03/03/24 08:00 Temperature Pulse Rate 59 L 65 Respiratory Rate Blood Pressure Pulse Oximetry 95 95 Oxygen Delivery Method Room Air 03/03/24 08:12 03/03/24 08:12 03/03/24 08:20 Temperature 98.1 F Pulse Rate 66 62 Respiratory Rate 18 Blood Pressure 144/77 H 144/77 H Pulse Oximetry 96 95 Oxygen Delivery Method <Jose Carlos Conte MD - Last Filed: 03/26/24 11:46> Orders Ordered: Discontinued Medications Allopurinol (Allopurinol 100 Mg Tablet) 300 mg PO DAILY [facility] Last Admin: 03/03/24 08:19 Dose: 300 mg Documented By: KW Aspirin (Aspirin Ec 81 Mg Tablet) 81 mg PO NOW ONE Stop: 03/01/24 20:33 Last Admin: 03/01/24 21:41 Dose: 81 mg Documented By: RL Aspirin (Aspirin Ec 81 Mg Tablet) 81 mg PO DAILY [facility] Last Admin: 03/03/24 08:19 Dose: 81 mg Documented By: Admin: 03/02/24 15:47 Dose: 81 mg Documented By: SOUMYA Carvedilol (Carvedilol 12.5 Mg Tablet) 12.5 mg PO NOW ONE Stop: 03/01/24 20:31 Last Admin: 03/01/24 21:41 Dose: 12.5 mg Documented By: SOUMYA Carvedilol (Carvedilol 12.5 Mg Tablet) 12.5 mg PO BID [facility] Last Admin: 03/03/24 08:18 Dose: 12.5 mg Documented By: Admin: 03/02/24 21:12 Dose: 12.5 mg Documented By: SARAH Ezetimibe (Ezetimibe 10 Mg Tablet) 10 mg PO NOW ONE Stop: 03/01/24 20:34 Last Admin: 03/01/24 21:40 Dose: 10 mg Documented By: SOUMYA Ezetimibe (Ezetimibe 10 Mg Tablet) 10 mg PO DAILY [facility] Last Admin: 03/03/24 08:18 Dose: 10 mg Documented By: Admin: 03/02/24 15:46 Dose: 10 mg Documented By: RL Losartan Potassium (Losartan 50 Mg Tablet) 50 mg PO NOW ONE Stop: 03/01/24 20:32 Last Admin: 03/01/24 21:41 Dose: 50 mg Documented By: RL Losartan Potassium (Losartan 50 Mg Tablet) 50 mg PO DAILY [facility] Last Admin: 03/03/24 08:11 Dose: 50 mg Documented By: Admin: 03/02/24 15:47 Dose: 50 mg Documented By: SOUMYA Naloxone HCl (Naloxone 0.4 Mg/Ml Vial) 0.2 mg IV Q2MIN PRN PRN Reason: Opiate Reversal Non-Formulary Medication (Brilinta) 90 mg PO BID [facility] Last Admin: 03/03/24 08:19 Dose: 90 mg Documented By: Admin: 03/02/24 21:14 Dose: 90 mg Documented By: SARAH Sertraline HCl (Sertraline 50 Mg Tablet) 50 mg PO BEDTIME [facility] Last Admin: 03/02/24 21:14 Dose: 50 mg Documented By: Admin: 03/01/24 21:41 Dose: 50 mg Documented By: SOUMYA Tramadol HCl (Tramadol 50 Mg Tablet) 50 mg PO NOW ONE Stop: 03/01/24 20:31 Last Admin: 03/01/24 21:41 Dose: 50 mg Documented By: SOUMYA Tramadol HCl (Tramadol 50 Mg Tablet) 50 mg PO Q6HR PRN PRN Reason: Pain, Moderate (4-6) Vital Signs Vital signs: Vital Signs - 8 hr 03/03/24 03:54 03/03/24 04:01 03/03/24 04:08 Temperature Pulse Rate 69 64 Respiratory Rate Blood Pressure 119/78 Pulse Oximetry 95 93 Oxygen Delivery Method Room Air 03/03/24 04:30 03/03/24 05:00 03/03/24 05:30 Temperature Pulse Rate 61 61 61 Respiratory Rate Blood Pressure Pulse Oximetry 93 95 96 Oxygen Delivery Method Room Air 03/03/24 06:10 03/03/24 06:12 03/03/24 06:12 Temperature Pulse Rate 64 62 Respiratory Rate Blood Pressure 139/76 Pulse Oximetry 95 95 Oxygen Delivery Method 03/03/24 06:30 03/03/24 07:00 03/03/24 07:00 Temperature Pulse Rate 60 59 L Respiratory Rate 17 Blood Pressure Pulse Oximetry 96 95 Oxygen Delivery Method Room Air 03/03/24 07:30 03/03/24 08:00 03/03/24 08:00 Temperature Pulse Rate 59 L 65 Respiratory Rate Blood Pressure Pulse Oximetry 95 95 Oxygen Delivery Method Room Air 03/03/24 08:12 03/03/24 08:12 03/03/24 08:20 Temperature 98.1 F Pulse Rate 66 62 Respiratory Rate 18 Blood Pressure 144/77 H 144/77 H Pulse Oximetry 96 95 Oxygen Delivery Method MDM - Fall <Spike Renee, - Last Filed: 03/02/24 18:34> Medical Records Attestation: I reviewed the patient's medical records. Lab Data Attestation: I reviewed the patient's lab results. 03/01/24 13:28 03/01/24 10:29 Labs: Lab Results 03/01/24 03/01/24 03/01/24 Range/Units 10:29 11:29 13:13 WBC 12.4 H (4.5-11.0) X10^3/uL RBC 2.28 L (4.5-5.9) X10^6/uL Hgb 7.3 L (13.5-17.5) g/dL Hct 22.6 L (41-53) % MCV 99.2 (80-100) fL MCH 32.1 (26-34) PG MCHC 32.4 (30-36) % RDW 17.7 H (11.6-14.8) % Plt Count 203 (150-400) X10^3/uL Neut % (Auto) 80.3 H (50-75) % Lymph % (Auto) 6.9 L (25-40) % [place] % (Auto) 10.6 (3-14) % Eos % (Auto) 1.7 L (2-4) % Baso % (Auto) 0.5 (0-2) % Neut # (Auto) 9900 H (4159-0867) /uL Lymph # (Auto) 900 L (5691-7431) /uL [place] # (Auto) 1300 H (0-900) /uL Eos # (Auto) 200 (0-450) /uL Baso # (Auto) 100 (0-100) /uL PT 14.2 H (9.4-12.5) SECONDS INR 1.2 (0.9-1.3) APTT 36 (25.1-36.5) SECONDS Sodium 141 (137-145) mmol/L Potassium 4.4 (3.4-5.1) mmol/L Chloride 110 H (98-107) mmol/L Carbon Dioxide 21 L (22-32) mmol/L BUN 24 H (9-20) mg/dL Creatinine 1.12 (0.66-1.25) mg/dL Estimated GFR > 60 (>60) mL/min BUN/Creatinine Ratio 21.4 (6-22) Glucose 111 H (80-110) mg/dL Calcium 8.9 (8.4-10.2) mg/dL Magnesium 2.0 (1.6-2.3) mg/dL Total Bilirubin 0.4 (0.2-1.3) mg/dL AST 30 (17-59) IU/L ALT 26 (<50) IU/L Alkaline Phosphatase 70 (38-126) U/L Total Creatine Kinase 325 H 302 H (55-170) U/L Troponin I 1.250 H* 1.100 H* (0.01-0.034) ng/mL Total Protein 6.6 (6.3-8.2) g/dL Albumin 3.6 (3.5-5.0) g/dL Globulin 3.0 (1.7-4.1) g/dL Albumin/Globulin Ratio 1.2 (1.0-2.8) Lipase 129 (23-300) U/L Urine RBC (0-5/HPF) Urine WBC (0-5/HPF) Ur Squamous Epith Cells (0-5/HPF) Urine Bacteria (None) Hyaline Casts (None) Granular Casts (None) WBC Casts (None) Ur Culture Indicated? Vol Urine Centrifuged Ethyl Alcohol < 10 ( - 10) mg/dL Blood Type Antibody Screen 03/01/24 03/01/24 Range/Units 13:28 16:00 WBC 13.1 H (4.5-11.0) X10^3/uL RBC 2.48 L (4.5-5.9) X10^6/uL Hgb 8.0 L (13.5-17.5) g/dL Hct 24.5 L (41-53) % MCV 98.7 (80-100) fL MCH 32.1 (26-34) PG MCHC 32.5 (30-36) % RDW 17.4 H (11.6-14.8) % Plt Count 223 (150-400) X10^3/uL Neut % (Auto) 77.8 H (50-75) % Lymph % (Auto) 9.3 L (25-40) % [place] % (Auto) 10.8 (3-14) % Eos % (Auto) 1.5 L (2-4) % Baso % (Auto) 0.6 (0-2) % Neut # (Auto) 55220 H (6340-3033) /uL Lymph # (Auto) 1200 (2370-1468) /uL [place] # (Auto) 1400 H (0-900) /uL Eos # (Auto) 200 (0-450) /uL Baso # (Auto) 100 (0-100) /uL PT (9.4-12.5) SECONDS INR (0.9-1.3) APTT (25.1-36.5) SECONDS Sodium (137-145) mmol/L Potassium (3.4-5.1) mmol/L Chloride (98-107) mmol/L Carbon Dioxide (22-32) mmol/L BUN (9-20) mg/dL Creatinine (0.66-1.25) mg/dL Estimated GFR (>60) mL/min BUN/Creatinine Ratio (6-22) Glucose (80-110) mg/dL Calcium (8.4-10.2) mg/dL Magnesium (1.6-2.3) mg/dL Total Bilirubin (0.2-1.3) mg/dL AST (17-59) IU/L ALT (<50) IU/L Alkaline Phosphatase (38-126) U/L Total Creatine Kinase (55-170) U/L Troponin I (0.01-0.034) ng/mL Total Protein (6.3-8.2) g/dL Albumin (3.5-5.0) g/dL Globulin (1.7-4.1) g/dL Albumin/Globulin Ratio (1.0-2.8) Lipase (23-300) U/L Urine RBC 0-1/hpf (0-5/HPF) Urine WBC 10-30/hpf H (0-5/HPF) Ur Squamous Epith Cells 0-1 /hpf (0-5/HPF) Urine Bacteria Few (2-10) H (None) Hyaline Casts 1-5/lpf (None) Granular Casts 1-5/lpf (None) WBC Casts 0-1/lpf (None) Ur Culture Indicated? Specimen cultured Vol Urine Centrifuged 10ml (spun) Ethyl Alcohol ( - 10) mg/dL Blood Type O Positive Antibody Screen Negative Point of Care Testing Glucose POC 119 Urine Dip Bedside Urine Glucose Negative Bedside Urine Bilirubin - Negative Bedside Urine Ketone - Negative Bedside Urine Occult Blood - Negative Bedside Urine Protein - Negative Bedside Urine Urobilinogen - Negative Bedside Urine Nitrite - Negative Bedside Urine Leukocytes + [address] - cervical spine: Radiologist's Impression: PROCEDURE: CT CERVICAL SPINE WO CON INDICATIONS: Recent fall TECHNIQUE: Noncontrast 3 mm thick sections acquired from the skull base to the T4 level. Sagittal and coronal reformats were then constructed. For radiation dose reduction, the following was used: automated exposure control, adjustment of mA and/or kV according to patient size. COMPARISON: [facility], CT, CT CERVICAL SPINE WO CON, 08/05/2022, 15:23. FINDINGS: Image quality: Excellent. Bones: No fractures or dislocations. Visualized superior ribs are intact. Diffuse cervical spondylitic change. Multilevel degenerative disc space loss and uncovertebral joint hypertrophy and posterior disc osteophyte complex. Canal stenosis at C4- C5 through C6-C7. Multilevel bony foraminal narrowing. Soft tissues: Prevertebral soft tissues are normal in thickness. No paravertebral hematomas. No apical pneumothoraces. IMPRESSION: 1. No acute cervical fracture or dislocation. 2. Diffuse cervical spondylitic change with multilevel canal stenosis and foraminal stenosis. CT scan - head: Radiologist's Impression: PROCEDURE: CT HEAD/BRAIN WO CON INDICATIONS: Expressive aphasia TECHNIQUE: Noncontrast 4.5 mm thick angled axial sections acquired from the foramen magnum to the vertex, with coronal and sagittal reformats. For radiation dose reduction, the following was used: automated exposure control, adjustment of mA and/or kV according to patient size. COMPARISON: [facility], CT, CT HEAD/BRAIN WO CON, 02/20/2023, 10:05. FINDINGS: Image quality: Diagnostic. CSF spaces: Basal cisterns are patent. No extra-axial fluid collections. The ventricles are symmetric in size and shape. Brain: No intracranial bleeds or masses. Further evolution of moderate focal left frontal temporal infarct with development of low-density encephalomalacia/gliosis. There is cerebral volume loss for age, with resultant ventricular and sulcal prominence. There are periventricular and deep white matter chronic small vessel ischemic changes. There is intracranial internal carotid artery atherosclerosis. Skull and face: Calvarium and visualized facial bones appear intact, without suspicious lesions. Sinuses: Visualized sinuses and mastoids are clear. 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 No acute infarct identified. CTA - brain/neck: Radiologist's Impression: PROCEDURE: CT ANGIO HEAD AND NECK INDICATIONS: Expressive aphasia TECHNIQUE: After the administration of intravenous contrast, 1 mm thick sections acquired from the aortic arch through the [place] of [place]. 3-dimensional kwbipvd-jqjohcyak-gnconhzkqu (MIP) and/or volume rendering reformats were acquired of the central intracranial vasculature and neck separately. For radiation dose reduction, the following was used: automated exposure control, adjustment of mA and/or kV according to patient size. COMPARISON: [facility], CT, CT ANGIO HEAD AND NECK, 02/20/2023, 10:05. FINDINGS: Image quality: Diagnostic. BRAIN: CSF spaces: Ventricles are normal in size and shape. Basal cisterns are patent. No extra-axial fluid collections. Brain: No significant abnormality of the brain can be seen. Skull and face: Calvarium and facial bones appear intact, without suspicious lesions. Orbits appear normal. Sinuses: Sinuses and mastoids are clear. HEAD CT ANGIOGRAPHY: Anterior circulation: Intracranial internal carotid arteries are normal in size and flow. The flow within the paired anterior cerebral arteries is normal and symmetric. The flow within the middle cerebral arteries is normal and symmetric. The anterior communicating artery is seen. No aneurysms are seen. Posterior circulation: Visualized portions of the vertebral arteries demonstrate normal caliber, and join to form a normal appearing basilar artery. Flow within the posterior cerebral arteries is normal and symmetric. No aneurysms are seen. NECK CT ANGIOGRAPHY: Carotid system: The great vessels demonstrate a conventional anatomy as they arise from the aortic arch. The origins of the common carotid arteries appear patent. There is a less than 50% stenosis of the midportion of the left common carotid artery, which is difficult to visualize, and measures 50-60%. It is unchanged. It is secondary to soft plaque. Reference guest services representative coronal image 141 of series 5 and axial image 263 of series 4. Again noted are unchanged bilateral proximal internal carotid artery stenosis, approximately 50% on the left and approximately 60-70% on the right. Posterior circulation: The origins of the vertebral arteries both appear widely patent. The more superior extracranial portions of both vertebral arteries also demonstrate normal courses and calibers. They join to form a normal appearing basilar artery. Soft tissues: Visualized neck soft tissues demonstrate no suspicious abnormalities. Bones: No suspicious bony lesions. Visualized cervical spine appears normally aligned. IMPRESSION: No significant intracranial arterial abnormality is seen. Unchanged bilateral proximal internal carotid artery stenosis, approximately 50% on the left and approximately 60-70% on the right. Also present, unchanged, is a 50-60% midportion left common carotid artery stenosis secondary to soft plaque. Any quantitative measurements of stenosis were performed using NASCET criteria. Pelvic x-ray: Radiologist's Impression: PROCEDURE: XR PELVIS 1-2V INDICATIONS: bilateral hip pain after fall TECHNIQUE: 2 view(s) of the pelvis acquired. COMPARISON: None. FINDINGS: Bones: No fractures or dislocations. No suspicious bony lesions. Bilateral hip arthroplasties. Hardware is intact without hardware fracture or periprosthetic lucency to suggest loosening. Alignment is stable. Soft tissues: Visualized bowel gas pattern is normal. No suspicious soft tissue calcifications. IMPRESSION: No visualized acute fracture or dislocation. However, if clinical concern and/or pain persist, short interval imaging followup in 7-10 days is recommended, as occult injury cannot be definitively excluded. Lumbar spine x-ray: Radiologist's Impression: PROCEDURE: XR LUMBAR SPINE 2-3V INDICATIONS: LBP after fall TECHNIQUE: 3 views of the lumbar spine were acquired. COMPARISON: [facility], , XR LUMBAR SPINE MIN 4V, 06/08/2022, 13:41. FINDINGS: Bones: 5 [id number] vertebrae are present. There is multilevel degenerative disc and foraminal narrowing most severe at L4-5 and L5-S1. There is trace retrolisthesis of L4 on L5. Partially visualized bilateral hip arthroplasties. No vertebral body compression fractures. No suspicious bony lesions. Soft tissues: Overlying bowel gas pattern is normal. No suspicious soft tissue calcifications. IMPRESSION: Significant degenerative changes. No visualized acute fracture or dislocation. However, if clinical concern and/or pain persist, short interval imaging followup in 7-10 days is recommended, as occult injury cannot be definitively excluded. Extremity x-ray #1: Radiologist's Impression: PROCEDURE: XR KNEE RT 3V INDICATIONS: R knee pain after fall TECHNIQUE: 3 views of the knee were acquired. COMPARISON: [facility], , XR KNEE LT 3V, 12/24/2023, 16:23. FINDINGS: Bones: No fractures or dislocations. No suspicious bony lesions. Moderate tricompartmental arthritic change. Small periarticular osteophytes. No erosions. Soft tissues: Mild joint effusion. No suspicious soft tissue calcifications. Chondrocalcinosis. IMPRESSION: No visualized acute fracture or dislocation. However, if clinical concern and/or pain persist, short interval imaging followup in 7-10 days is recommended, as occult injury cannot be definitively excluded. ECG Data Attestation: I personally reviewed and interpreted this ECG as follows: Interpretation: Sinus rhythm Ventricular rate is 72 First-degree AV block OK interval 220 milliseconds Normal axis Normal QRS Normal QTC No ST T wave changes MDM Narrative Medical decision making narrative: Has expressive aphasia is not new. His workup here in the emergency department shows no new pathology. No signs of new stroke. Patient had a very difficult time standing at bedside and essentially was unable to stand even with a walker. Patient is anemic however has no signs of active bleeding in his H&H did not worsen with time. His troponin is elevated but he recently had a non ST elevation MA. He has no chest pain. His troponin did not change with serial lab draws. Patient has been seen by social work. He would qualify for nursing facility given his recent admission to the hospital however needs a physical therapy consult. If physical therapy consult was placed however they were unable to see the patient before the end of the workday what she has causing a delay in patient care. Patient will stay in the emergency department this evening until he can be seen by Physical therapy. Care turned over to Dr. Corral to follow-up and disposition. Dr. Corral - no events overnight. PT unable to make it to evaluate patient during the day. Dr renee: 03/02/24 patient has been stable throughout the day. Patient has been seen by Physical therapy who recommended sniff. Patient has been accepted to nursing facility however transport can not be arranged until tomorrow. Care turned over to Dr. Corral to continue to observe overnight until disposition. <Nata Corral MD - Last Filed: 03/03/24 06:42> Lab Data Labs: Lab Results 03/01/24 03/01/24 03/01/24 Range/Units 10:29 11:29 13:13 WBC 12.4 H (4.5-11.0) X10^3/uL RBC 2.28 L (4.5-5.9) X10^6/uL Hgb 7.3 L (13.5-17.5) g/dL Hct 22.6 L (41-53) % MCV 99.2 (80-100) fL MCH 32.1 (26-34) PG MCHC 32.4 (30-36) % RDW 17.7 H (11.6-14.8) % Plt Count 203 (150-400) X10^3/uL Neut % (Auto) 80.3 H (50-75) % Lymph % (Auto) 6.9 L (25-40) % Edmonson % (Auto) 10.6 (3-14) % Eos % (Auto) 1.7 L (2-4) % Baso % (Auto) 0.5 (0-2) % Neut # (Auto) 9900 H (0273-1693) /uL Lymph # (Auto) 900 L (0608-4575) /uL Edmonson # (Auto) 1300 H (0-900) /uL Eos # (Auto) 200 (0-450) /uL Baso # (Auto) 100 (0-100) /uL PT 14.2 H (9.4-12.5) SECONDS INR 1.2 (0.9-1.3) APTT 36 (25.1-36.5) SECONDS Sodium 141 (137-145) mmol/L Potassium 4.4 (3.4-5.1) mmol/L Chloride 110 H (98-107) mmol/L Carbon Dioxide 21 L (22-32) mmol/L BUN 24 H (9-20) mg/dL Creatinine 1.12 (0.66-1.25) mg/dL Estimated GFR > 60 (>60) mL/min BUN/Creatinine Ratio 21.4 (6-22) Glucose 111 H (80-110) mg/dL Calcium 8.9 (8.4-10.2) mg/dL Magnesium 2.0 (1.6-2.3) mg/dL Total Bilirubin 0.4 (0.2-1.3) mg/dL AST 30 (17-59) IU/L ALT 26 (<50) IU/L Alkaline Phosphatase 70 (38-126) U/L Total Creatine Kinase 325 H 302 H (55-170) U/L Troponin I 1.250 H* 1.100 H* (0.01-0.034) ng/mL Total Protein 6.6 (6.3-8.2) g/dL Albumin 3.6 (3.5-5.0) g/dL Globulin 3.0 (1.7-4.1) g/dL Albumin/Globulin Ratio 1.2 (1.0-2.8) Lipase 129 (23-300) U/L Urine RBC (0-5/HPF) Urine WBC (0-5/HPF) Ur Squamous Epith Cells (0-5/HPF) Urine Bacteria (None) Hyaline Casts (None) Granular Casts (None) WBC Casts (None) Ur Culture Indicated? Vol Urine Centrifuged Ethyl Alcohol < 10 ( - 10) mg/dL Blood Type Antibody Screen 03/01/24 03/01/24 Range/Units 13:28 16:00 WBC 13.1 H (4.5-11.0) X10^3/uL RBC 2.48 L (4.5-5.9) X10^6/uL Hgb 8.0 L (13.5-17.5) g/dL Hct 24.5 L (41-53) % MCV 98.7 (80-100) fL MCH 32.1 (26-34) PG MCHC 32.5 (30-36) % RDW 17.4 H (11.6-14.8) % Plt Count 223 (150-400) X10^3/uL Neut % (Auto) 77.8 H (50-75) % Lymph % (Auto) 9.3 L (25-40) % Edmonson % (Auto) 10.8 (3-14) % Eos % (Auto) 1.5 L (2-4) % Baso % (Auto) 0.6 (0-2) % Neut # (Auto) 58116 H (1952-1557) /uL Lymph # (Auto) 1200 (1114-8021) /uL Edmonson # (Auto) 1400 H (0-900) /uL Eos # (Auto) 200 (0-450) /uL Baso # (Auto) 100 (0-100) /uL PT (9.4-12.5) SECONDS INR (0.9-1.3) APTT (25.1-36.5) SECONDS Sodium (137-145) mmol/L Potassium (3.4-5.1) mmol/L Chloride (98-107) mmol/L Carbon Dioxide (22-32) mmol/L BUN (9-20) mg/dL Creatinine (0.66-1.25) mg/dL Estimated GFR (>60) mL/min BUN/Creatinine Ratio (6-22) Glucose (80-110) mg/dL Calcium (8.4-10.2) mg/dL Magnesium (1.6-2.3) mg/dL Total Bilirubin (0.2-1.3) mg/dL AST (17-59) IU/L ALT (<50) IU/L Alkaline Phosphatase (38-126) U/L Total Creatine Kinase (55-170) U/L Troponin I (0.01-0.034) ng/mL Total Protein (6.3-8.2) g/dL Albumin (3.5-5.0) g/dL Globulin (1.7-4.1) g/dL Albumin/Globulin Ratio (1.0-2.8) Lipase (23-300) U/L Urine RBC 0-1/hpf (0-5/HPF) Urine WBC 10-30/hpf H (0-5/HPF) Ur Squamous Epith Cells 0-1 /hpf (0-5/HPF) Urine Bacteria Few (2-10) H (None) Hyaline Casts 1-5/lpf (None) Granular Casts 1-5/lpf (None) WBC Casts 0-1/lpf (None) Ur Culture Indicated? Specimen cultured Vol Urine Centrifuged 10ml (spun) Ethyl Alcohol ( - 10) mg/dL Blood Type O Positive Antibody Screen Negative Point of Care Testing Glucose POC 119 Urine Dip Bedside Urine Glucose Negative Bedside Urine Bilirubin - Negative Bedside Urine Ketone - Negative Bedside Urine Occult Blood - Negative Bedside Urine Protein - Negative Bedside Urine Urobilinogen - Negative Bedside Urine Nitrite - Negative Bedside Urine Leukocytes + 70 Esterase MDM Narrative Medical decision making narrative: Has expressive aphasia is not new. His workup here in the emergency department shows no new pathology. No signs of new stroke. Patient had a very difficult time standing at bedside and essentially was unable to stand even with a walker. Patient is anemic however has no signs of active bleeding in his H&H did not worsen with time. His troponin is elevated but he recently had a non ST elevation MA. He has no chest pain. His troponin did not change with serial lab draws. Patient has been seen by social work. He would qualify for nursing facility given his recent admission to the hospital however needs a physical therapy consult. If physical therapy consult was placed however they were unable to see the patient before the end of the workday what she has causing a delay in patient care. Patient will stay in the emergency department this evening until he can be seen by Physical therapy. Care turned over to Dr. Corral to follow-up and disposition. Dr. Corral - no events overnight. PT unable to make it to evaluate patient during the day. Dr renee: 03/02/24 patient has been stable throughout the day. Patient has been seen by Physical therapy who recommended sniff. Patient has been accepted to nursing facility however transport can not be arranged until tomorrow. Care turned over to Dr. Corral to continue to observe overnight until disposition. 03/03/24 Dr. Corral - no events overnight. Patient comfortable in hospital bed. Anticipate transfer to SNF later this AM. Care of patient signed to Dr. Conte at 0700 <Jose Carlos Conte MD - Last Filed: 03/26/24 11:46> Lab Data Labs: Lab Results 03/01/24 03/01/24 03/01/24 Range/Units 10:29 11:29 13:13 WBC 12.4 H (4.5-11.0) X10^3/uL RBC 2.28 L (4.5-5.9) X10^6/uL Hgb 7.3 L (13.5-17.5) g/dL Hct 22.6 L (41-53) % MCV 99.2 (80-100) fL MCH 32.1 (26-34) PG MCHC 32.4 (30-36) % RDW 17.7 H (11.6-14.8) % Plt Count 203 (150-400) X10^3/uL Neut % (Auto) 80.3 H (50-75) % Lymph % (Auto) 6.9 L (25-40) % Edmonson % (Auto) 10.6 (3-14) % Eos % (Auto) 1.7 L (2-4) % Baso % (Auto) 0.5 (0-2) % Neut # (Auto) 9900 H (1196-3137) /uL Lymph # (Auto) 900 L (4730-9535) /uL Edmonson # (Auto) 1300 H (0-900) /uL Eos # (Auto) 200 (0-450) /uL Baso # (Auto) 100 (0-100) /uL PT 14.2 H (9.4-12.5) SECONDS INR 1.2 (0.9-1.3) APTT 36 (25.1-36.5) SECONDS Sodium 141 (137-145) mmol/L Potassium 4.4 (3.4-5.1) mmol/L Chloride 110 H (98-107) mmol/L Carbon Dioxide 21 L (22-32) mmol/L BUN 24 H (9-20) mg/dL Creatinine 1.12 (0.66-1.25) mg/dL Estimated GFR > 60 (>60) mL/min BUN/Creatinine Ratio 21.4 (6-22) Glucose 111 H (80-110) mg/dL Calcium 8.9 (8.4-10.2) mg/dL Magnesium 2.0 (1.6-2.3) mg/dL Total Bilirubin 0.4 (0.2-1.3) mg/dL AST 30 (17-59) IU/L ALT 26 (<50) IU/L Alkaline Phosphatase 70 (38-126) U/L Total Creatine Kinase 325 H 302 H (55-170) U/L Troponin I 1.250 H* 1.100 H* (0.01-0.034) ng/mL Total Protein 6.6 (6.3-8.2) g/dL Albumin 3.6 (3.5-5.0) g/dL Globulin 3.0 (1.7-4.1) g/dL Albumin/Globulin Ratio 1.2 (1.0-2.8) Lipase 129 (23-300) U/L Urine RBC (0-5/HPF) Urine WBC (0-5/HPF) Ur Squamous Epith Cells (0-5/HPF) Urine Bacteria (None) Hyaline Casts (None) Granular Casts (None) WBC Casts (None) Ur Culture Indicated? Vol Urine Centrifuged Ethyl Alcohol < 10 ( - 10) mg/dL Blood Type Antibody Screen 03/01/24 03/01/24 Range/Units 13:28 16:00 WBC 13.1 H (4.5-11.0) X10^3/uL RBC 2.48 L (4.5-5.9) X10^6/uL Hgb 8.0 L (13.5-17.5) g/dL Hct 24.5 L (41-53) % MCV 98.7 (80-100) fL MCH 32.1 (26-34) PG MCHC 32.5 (30-36) % RDW 17.4 H (11.6-14.8) % Plt Count 223 (150-400) X10^3/uL Neut % (Auto) 77.8 H (50-75) % Lymph % (Auto) 9.3 L (25-40) % Edmonson % (Auto) 10.8 (3-14) % Eos % (Auto) 1.5 L (2-4) % Baso % (Auto) 0.6 (0-2) % Neut # (Auto) 72816 H (8274-7156) /uL Lymph # (Auto) 1200 (7374-7226) /uL Edmonson # (Auto) 1400 H (0-900) /uL Eos # (Auto) 200 (0-450) /uL Baso # (Auto) 100 (0-100) /uL PT (9.4-12.5) SECONDS INR (0.9-1.3) APTT (25.1-36.5) SECONDS Sodium (137-145) mmol/L Potassium (3.4-5.1) mmol/L Chloride (98-107) mmol/L Carbon Dioxide (22-32) mmol/L BUN (9-20) mg/dL Creatinine (0.66-1.25) mg/dL Estimated GFR (>60) mL/min BUN/Creatinine Ratio (6-22) Glucose (80-110) mg/dL Calcium (8.4-10.2) mg/dL Magnesium (1.6-2.3) mg/dL Total Bilirubin (0.2-1.3) mg/dL AST (17-59) IU/L ALT (<50) IU/L Alkaline Phosphatase (38-126) U/L Total Creatine Kinase (55-170) U/L Troponin I (0.01-0.034) ng/mL Total Protein (6.3-8.2) g/dL Albumin (3.5-5.0) g/dL Globulin (1.7-4.1) g/dL Albumin/Globulin Ratio (1.0-2.8) Lipase (23-300) U/L Urine RBC 0-1/hpf (0-5/HPF) Urine WBC 10-30/hpf H (0-5/HPF) Ur Squamous Epith Cells 0-1 /hpf (0-5/HPF) Urine Bacteria Few (2-10) H (None) Hyaline Casts 1-5/lpf (None) Granular Casts 1-5/lpf (None) WBC Casts 0-1/lpf (None) Ur Culture Indicated? Specimen cultured Vol Urine Centrifuged 10ml (spun) Ethyl Alcohol ( - 10) mg/dL Blood Type O Positive Antibody Screen Negative Point of Care Testing Glucose POC 119 Urine Dip Bedside Urine Glucose Negative Bedside Urine Bilirubin - Negative Bedside Urine Ketone - Negative Bedside Urine Occult Blood - Negative Bedside Urine Protein - Negative Bedside Urine Urobilinogen - Negative Bedside Urine Nitrite - Negative Bedside Urine Leukocytes + 70 Esterase MDM Narrative Medical decision making narrative: Has expressive aphasia is not new. His workup here in the emergency department shows no new pathology. No signs of new stroke. Patient had a very difficult time standing at bedside and essentially was unable to stand even with a walker. Patient is anemic however has no signs of active bleeding in his H&H did not worsen with time. His troponin is elevated but he recently had a non ST elevation MA. He has no chest pain. His troponin did not change with serial lab draws. Patient has been seen by social work. He would qualify for nursing facility given his recent admission to the hospital however needs a physical therapy consult. If physical therapy consult was placed however they were unable to see the patient before the end of the workday what she has causing a delay in patient care. Patient will stay in the emergency department this evening until he can be seen by Physical therapy. Care turned over to Dr. Corral to follow-up and disposition. Dr. Corral - no events overnight. PT unable to make it to evaluate patient during the day. Dr renee: 03/02/24 patient has been stable throughout the day. Patient has been seen by Physical therapy who recommended sniff. Patient has been accepted to nursing facility however transport can not be arranged until tomorrow. Care turned over to Dr. Corral to continue to observe overnight until disposition. 03/03/24 Dr. Corral - no events overnight. Patient comfortable in hospital bed. Anticipate transfer to SNF later this AM. Care of patient signed to Dr. Conte at 699March 03, 2024 7:[address] Conte: Sign-out from Dr. Corral, no new events overnight. Patient awaiting for transfer. Discharge Plan Departure Patient Disposition: SNF Clinical Impression: Weakness, Aphasia Activity Restrictions/Additional Instructions: You are being transferred to [facility]. Please continue home medications. Prescriptions: No Action Repatha SureClick 140 mg/mL pen injector 140 mg SUBCUT Q2W Patient Comments: [NO ORIGINAL SIG] aspirin 81 mg Tablet,Delayed Release (Dr/Ec) 81 mg PO DAILY sertraline 50 mg Tablet 25 mg PO DAILY tramadol 50 mg tablet 50 mg PO Q6HR PRN (Reason: Pain, Moderate) allopurinol 300 mg tablet 300 mg PO DAILY Brilinta 90 mg tablet 90 mg PO BID losartan 100 mg tablet 50 mg PO DAILY ezetimibe 10 mg tablet 10 mg PO DAILY carvedilol 12.5 mg tablet 12.5 mg PO BID
--- NOTE | 2024-03-01 10:42 | EKG_ITS ---
[address] [id number] [address] [place] [address] Test Date: 2024-03-01 Pat Name: Hadley Wilkes Department: Located Within [facility] Room: Gender: Male Cardiology Specialist: ESTEBAN : 1945 Requested By: Order Number: [id number] Reading MD: Kade Cook Measurements Intervals Painter Rate: 72 P: -15 ID: [id number] QRS: -15 QRSD: 80 T: 24 QT: 390 QTc: 427 Interpretive Statements Sinus rhythm with 1st degree AV block Low voltage QRS Electronically Signed On 03-01-2024 11:31:51 PDT by Kade Cook
[2024-03-01 10:45] LABS: INR 1.2 (0.9-1.3); Prothrombin Time 14.2 SECONDS (9.4-12.5)
[2024-03-01 10:48] LABS: PTT Partial Thromboplastin Tim 36 SECONDS (25.1-36.5)
[2024-03-01 10:50] LABS: Alanine Aminotransferase 26 IU/L (<50); Albumin 3.6 g/dL (3.5-5.0); Albumin Globulin Ratio 1.2 (1.0-2.8); Alkaline Phosphatase 70 U/L (38-126); Aspartate Aminotransferase 30 IU/L (17-59); BUN Creatinine Ratio 21.4 (6-22); Bilirubin Total 0.4 mg/dL (0.2-1.3); Blood Urea Nitrogen 24 mg/dL (9-20); Calcium 8.9 mg/dL (8.4-10.2); Carbon Dioxide 21 mmol/L (22-32); Chloride 110 mmol/L (98-107); Estimated Glomerular Filt Rate > 60 mL/min (>60); Ethanol (ETOH) < 10 mg/dL; Glucose 111 mg/dL (80-110); HEMOLYSIS < 15 (0-50); Lipase 129 U/L (23-300); Potassium 4.4 mmol/L (3.4-5.1); Sodium 141 mmol/L (137-145); Total Protein 6.6 g/dL (6.3-8.2)
--- NOTE | 2024-03-01 11:19 | PC.NURSE ---
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 confirms that pt was walking to bathroom this morning and could not fit the walker through the door. Pt became tired and weak and fell to floor. states that pt did not hit head and denies LOC. Dr Renee updated.
[2024-03-01 11:24] LABS: Creatine Kinase 325 U/L (55-170)
[2024-03-01 11:38] LABS: Add Manual Diff / Slide Review NO; Basophils Absolute Auto 100 /uL (0-100); Basophils Percent Auto 0.5 % (0-2); Eosinophils Absolute Auto 200 /uL (0-450); Eosinophils Percent Auto 1.7 % (2-4); Hematocrit 22.6 % (41-53); Hemoglobin 7.3 g/dL (13.5-17.5); Lymphocytes Absolute Auto 900 /uL (1100-4500); Lymphocytes Percent Auto 6.9 % (25-40); Mean Corpuscular HGB Conc 32.4 % (30-36); Mean Corpuscular Hemoglobin 32.1 PG (26-34); Mean Corpuscular Volume 99.2 fL (80-100); Monocytes Absolute Auto 1300 /uL (0-900); Monocytes Percent Auto 10.6 % (3-14); Neutrophils Absolute Auto 9900 /uL (1500-7000); Neutrophils Percent Auto 80.3 % (50-75); Platelet Count 203 X10^3/uL (150-400); Red Blood Cell Count 2.28 X10^6/uL (4.5-5.9); Red Cell Distribution Width 17.7 % (11.6-14.8); White Blood Cell Count 12.4 X10^3/uL (4.5-11.0)
[2024-03-01 13:31] LABS: Creatine Kinase 302 U/L (55-170)
--- NOTE | 2024-03-01 13:36 | PC.NURSE ---
pt able to stand at bedside with walker. Requires 2 person assist. Pt unable to ambulate or take steps forward due to pain and weakness in legs.
[2024-03-01 13:39] LABS: Add Manual Diff / Slide Review NO; Basophils Absolute Auto 100 /uL (0-100); Basophils Percent Auto 0.6 % (0-2); Eosinophils Absolute Auto 200 /uL (0-450); Eosinophils Percent Auto 1.5 % (2-4); Hematocrit 24.5 % (41-53); Lymphocytes Absolute Auto 1200 /uL (1100-4500); Lymphocytes Percent Auto 9.3 % (25-40); Mean Corpuscular HGB Conc 32.5 % (30-36); Mean Corpuscular Hemoglobin 32.1 PG (26-34); Mean Corpuscular Volume 98.7 fL (80-100); Monocytes Absolute Auto 1400 /uL (0-900); Monocytes Percent Auto 10.8 % (3-14); Neutrophils Absolute Auto 10200 /uL (1500-7000); Neutrophils Percent Auto 77.8 % (50-75); Platelet Count 223 X10^3/uL (150-400); Red Blood Cell Count 2.48 X10^6/uL (4.5-5.9); Red Cell Distribution Width 17.4 % (11.6-14.8); White Blood Cell Count 13.1 X10^3/uL (4.5-11.0)
--- NOTE | 2024-03-01 14:14 | CM.DANOTE ---
Addendum entered by AMY Monterroso 03/01/24 19:32: ED INDUSTRIAL STAFF NURSE Addendum (Preferences): ED INDUSTRIAL STAFF NURSE re-entered room with ED RN and discussed update for care plan with patient and pt's . Patient was able to identify preferences for SNF Rehab if recommended: 1) Acute Rehab Center at [facility] [Patient has a hx of admission at this facility] 2) [facility] Plan: Pending PT evaluations for appropriate referral. ED staff following closely for coordination of dc plans. CHAKA Snyder Original Note: DCP Assessment Note: Pt is a 79yo male, resident of [place], presented to the ED after a GLF. Per EMS report, patient was admitted at [facility] from 02/20-02/27 for NSTEMI and returned home with [facility] follow up. It was reported that patient declined recommendation for SNF Rehab during that admission. Pt lives in a house with his , Valery. Pt's Primary Care Provider is Dr. Camacho Smith and insurance is Medicare and [employer]. Reviewed chart and discussed with ED staff for pt's medical status and initial discharge needs. ED INDUSTRIAL STAFF NURSE met w/patient at bedside; introduced self and role. Present in the room is patient's , Valery. Patient was found in bed, alert and oriented, cooperative with assessment. It was identified that patient has speech aphasia. Pt confirmed living situation and good support in , consented for to give history. Pt expressed preference in returning home but understandable that this might not be the safest choice due to patient's recent fall and weakness. Pt has a hx of admission at Acute Rehab at [facility], pt discussed preference to return there if appropriate. Pt agreeable to working with therapies and following their recommendations. ED INDUSTRIAL STAFF NURSE discussed this with ED Provider, Dr. Renee, who indicated understanding and ordered PT evaluation for recommendation. Patient's last admission at [facility] should qualify for activation of Medicare SNF benefit. ED INDUSTRIAL STAFF NURSE provided patient and with [facility] Provider List and Medicare Choice list for SNF Rehab. Plan: Awaiting PT/OT evaluations and recommendation for evolving discharge plans. ED Staff will follow closely for coordination of discharge plans. CHAKA Snyder Discharge Planning/Care Management CM Discharge Assessment Start: 03/01/24 13:58 Freq: Status: Active Protocol: Document 03/01/24 13:58 MW (Rec: 03/01/24 14:13 MW [id number]) Discharge Planning Assessment Assigned Ordnance Mechanic AMY Parish DPOA/Assigned Designee Name Valery Mccormick, Contact Information [phone] Advance Directives? Yes Advance Directives on File No History Provided By Patient,Family Member,Medical Record Has Patient been admitted in last 30 No days? Comment Patient was admitted at [facility] from 02/21/2024-2023 for NSTEMI. Prior Living Arrangements House Household Members spouse Type of transporation used prior to Drives own vehicle admit Independent with ADL's Yes Is patient alert and oriented? Yes Needs Assistance With Bathing,Grooming,Toileting, Home Chores / Shopping Comment Patient has new onset of weakness and speech aphasia. Caregiver for Another No Community Services used prior to Home Health Aid,Home Health admission: Nurse Comment Patient was accepted for Home Health services with [facility]. DME Already Rented / Owned FWW / Walker,Cane Patient/Family Preference Shelter Facility Comment Patient and prefer to return home if possible but if still weak, understand that returning home would not be safe ( only support at home). Patient explains she is open to discussing rehab if recommended by PT - preference to return to Acute rehab in [place] (was there last year) or hire caregivers at home with home health. Transportation Arrangement Pending disposition plans: SNF vs. home with caregivers/HH. If patient plan is SNF: Has PASSR been No completed? Medicare Choice List Provided Yes SNF/HH Preference 1) Acute Rehab Center at [facility] 2) [facility] Whiteboard Updated in Patient Room with No name and ext. # of Ordnance Mechanic Please Provide Date Initial DC 03/01/24 Assessment Was Performed Next Review Type Continued Stay Review
--- NOTE | 2024-03-01 15:31 | PC.NURSE ---
Patient taking home meds OK per Dr Renee
--- NOTE | 2024-03-01 16:33 | CM.SWNOTE ---
ED CAD DRAFTSMAN Note: PT Evaluation order placed at 1353 after consultation with ED Provider. ED CAD DRAFTSMAN attempted to call inpatient PT to coordinate evaluation 3x, no answer. ED CAD DRAFTSMAN attempted to connect via visiting PT office at approximately 1430, no therapist available. ED Staff continuing to contact PT for evaluation, required for SNF referral. CHAKA Snyder
[2024-03-01 19:04] LABS: Bacteria Urine Few (2-10); Granular Casts Urine 1-5/LPF; Hyaline Casts Urine 1-5/LPF; RBC Urine 0-1/HPF (0-5/HPF); Squamous Epithelial Cell Urine 0-1 /HPF (0-5/HPF); Urine Volume 10mL (spun); WBC Urine 10-30/HPF (0-5/HPF); White Blood Cell Casts Urine 0-1/LPF
[2024-03-01 19:05] LABS: Culture Indicated Urine Specimen Cultured
--- NOTE | 2024-03-01 20:12 | PC.NURSE ---
Patient moved onto a inpatient hospital bed for comfort and skin protection. Patient did not want to attempt to move over himself, staff used slider board and 4 staff assist to move patient to hospital bed. Patient reports improved comfort on new bed. Patient moved to room 5 and oriented to room, call light within reach and bed in lowest position. Patient denies any other immediate needs. Spouse went home at this time to get rest and has been updated on plan of care. She states she will return early in the morning because she would like to be present for PT evaluation.
[2024-03-01] MEDS: EZETIMIBE 10 MG TABLET PO (21:40)
[2024-03-01] MEDS: ASPIRIN EC 81 MG TABLET PO (21:41)
[2024-03-01] MEDS: TRAMADOL 50 MG TABLET PO (21:41)
[2024-03-01] MEDS: carvediloL 12.5 MG TABLET PO (21:41)
[2024-03-01] MEDS: SERTRALINE 50 MG TABLET PO (21:41)
[2024-03-01] MEDS: LOSARTAN 50 MG TABLET PO (21:41)
[2024-03-02] VITALS (36 sets, daily range): BP systolic 114–147; BP diastolic 61–76; PULSE 59–79; RESP 14–18; O2SAT 92–100
--- NOTE | 2024-03-02 01:26 | PC.NURSE ---
Pt resting quietly with eyes closed, resps even and not labored. No distress noted at this time. Call light within reach.
--- NOTE | 2024-03-02 03:01 | PC.NURSE ---
No change in patient condition or status. Pt resting quietly with eyes closed, resps even and not labored. No distress noted at this time. Pt rouses easily to verbal stimuli. Call light within reach.
--- NOTE | 2024-03-02 10:30 | PT.IIE ---
Surgical History (Last Reviewed 02/20/24 @ 18:11 by Jose Carlos Conte MD) H/O lithotripsy Hx of appendectomy Hx of cardiac catheterization Medical History (Last Reviewed 03/01/24 @ 10:35 by Spike Renee DO) Anemia Cerebrovascular disease Chronic anticoagulation Coronary artery disease Essential hypertension Gait instability Gout Hx of non-ST elevation myocardial infarction (NSTEMI) Iron deficiency anemia Kidney stones Left knee pain Low back pain Mixed hyperlipidemia Paroxysmal atrial fibrillation Primary osteoarthritis involving multiple joints Reactive depression Physical Therapy Inpatient Evaluation/Re-Eval M1 PT/OT-IP Prior Functional Status Start: 03/02/24 12:08 Freq: Status: Active Protocol: Document 03/02/24 10:00 NM (Rec: 03/02/24 12:43 NM [id number]) Medical Review Prior Functional Status Mobility and Gait Using 2 spc to ambulate or FWW Activities of Daily Living and IADL's IND with FWW or spc prior to admit Social History Household Members spouse Living Arrangements House Number of Floors (Floors) Two Floors Home Equipment Front Wheel Walker,Straight Cane Additional Social History Comment Pt has a stair lift at home and an adjustable bed. He has 2 stories with 2 flights between floors and 2 stairs to enter home. Pt drives his in their car M2 PT-IP Current Condition Start: 03/02/24 12:08 Freq: Status: Active Protocol: Document 03/02/24 10:00 NM (Rec: 03/02/24 12:43 NM [id number]) Physical Therapy Current Condition Current Condition Evaluation Date 03/02/24 Treatment Diagnosis generalized weakness, limited mobility s/p GLF M3 PT-IP Subjective Start: 03/02/24 12:08 Freq: Status: Active Protocol: Document 03/02/24 10:00 NM (Rec: 03/02/24 12:43 NM [id number]) Subjective Physical Therapy Visit Type Type Initial Evaluation Visit Start Time 10:00 Visit Stop Time 10:25 Physical Therapy Visit Comments Patient Comments Pt agrees to participate in PT evaluation. is present and assisted providing hx for pt as pt has aphasia and difficulty with speech. Pt and state that he is very weak in BLE, reports hx of myositis and B MIGUEL. Report that he was using 2 spc and FWW to ambulate at home. He had had 2 ground level falls within January-February following initial discharge from hospital following NSTEMI . Has HHPT set up following lat hospital visit; however, pt has not started yet. Therapy Pain Assessment Pain When Pain Assessed During Mobility Pain Present Pain Present Pain Reported Location Left leg Intensity 3 Scale Used Numeric (0 - 10) Description Aching,Pressure Pain Management Techniques Modification of Treatment Lower Back Intensity 4 Description Aching Pain Management Techniques Re-positioning M4 PT-IP Mobility and Gait Start: 03/02/24 12:08 Freq: Status: Active Protocol: Document 03/02/24 10:00 NM (Rec: 03/02/24 12:43 NM [id number]) PT-Bed Mobility Assessment Rolling Type of Rolling Roll to Left Level of Assist Moderate Assistance Supine to Sit Supine to Sit Minimal Assistance,Moderate Assistance,1 Person Assistance ,Head of Bed Elevated,Bedrails Sit to Supine Sit to Supine Moderate Assistance,1 Person Assistance,Head of Bed Elevated,Bedrails PT-Transfer Assessment Sit to and From Stand Sit to and from Stand Maximum Assistance,1 Person Assistance Equipment Transfer Assistive Device Gait Belt,Front Wheeled Walker Comments Mobility Comments Pt supine in bed with HOB elevated with present upon PT arrival. Pt unable to roll to side with bed flat. However, has adjustable bed at home; able to roll to EOB with HOB elevated and L rail assist with Mod A to roll and sit on EOB. Requires mod A to scoot to EOB with moderate cueing for sequencing. Mod A for BLE to return from sitting EOB to supine. Gait Assessment Gait Gait Assistance Required: Moderate Assistance,1 Person Assist Distance (Feet) 3 Assistive Devices Assistive Device Gait Belt,Front Wheeled Walker Gait Deviations General Gait Pattern Antalgic,Decreased Feet Clearance,Flexed Trunk Factors Limiting Gait Function Factors Limiting Gait Function Decreased Activity Tolerance, Decreased Strength,Limited Range of Motion,Pain,Poor Balance Comments Gait Comments Pt took 3 steps laterally with FWW and Mod Ax1 to L, then 3 steps back laterally with mod A to stabilize. Demos decreased B foot clearance (L> R) and R knee has mild buckle after 3rd step. PT able to stabilize with max Ax1 and assist pt in lowering back to sitting position on EOB. Mod A for BLE to return from sitting EOB to supine. Pt left supine in bed with HOB elevated, call light within reach, and present. Stair Climbing Assessment Comments Stair Climbing Comments Did not assess as pt not appropriate at this time PT-Balance Assessment Sitting Balance and Reactions Static Sitting Balance Ability Good Dynamic Sitting Balance Ability Good Standing Balance and Reactions Static Standing Balance Ability Fair Dynamic Standing Balance Ability Poor M5 PT-IP Objective Assessments Start: 03/02/24 12:08 Freq: Status: Active Protocol: Document 03/02/24 10:00 NM (Rec: 03/02/24 12:43 NM [id number]) Orientation Orientation/Cognition Level of Alertness Alert Orientation Name Language Function Ability Expressive Aphasia Safety Awareness Understands Safety Issues Gross Range of Motion Upper Extremity ROM Assessment Within Functional Limits Lower Extremity ROM Assessment Right Impaired Impairments Decreased hip flexion Strength Upper Extremity Strength Assessment Within Functional Limits Lower Extremity Strength Assessment Right Impaired Hip 3/5 hip flex, 4-/5 hip abd/add Knee 4-/5 knee ext/flex Ankle 4-/5 dorsiflexion and seated plantarflexion M7 PT-IP Assessment and Plan Start: 03/02/24 12:08 Freq: Status: Active Protocol: Document 03/02/24 10:00 NM (Rec: 03/02/24 12:43 NM [id number]) PT Summary Assessment and Plan Potential Rehabilitation Potential Fair Status of Condition at Evaluation Stable Summary Impairments Pain,ROM,Strength,Balance,Bed Mobility,Transfers,Gait, Activity Tolerance Assessment Summary Pt is an 79 y.o. male presenting in ED s/p 2 GLF. He presents with BLE weakness. Pt is Mod Ax1 for bed mobility with HOB elevated and transfers to FWW with bed elevated. He demonstrates impairments in BLE strength and balance, which impact standing tolerance and ambulation. RLE more affected than LLE. Pt is mod Ax1 for lateral stepping at bed with FWW, but requires maxA x1 during 1 instance to prevent fall when standing due to R knee buckling. Pt fatigues quickly and is limited by decreased activity tolerance and pain. Pt lives with his , but has had 2 GLF since last discharge from hospital. He has DME that would assist with home care; however, pt requiring at least 1 assist with all mobility. PT recommending SNF for strengthening and transfer training to reduce fall risk, facilitate improved independence, and decrease caregiver burden at home. Goals Bed Mobility Goal Standby Assistance,Minimal Assistance Transfer Goal Minimal Assistance,Front Wheeled Walker Gait Goal Minimal Assistance,Front Wheel Walker Gait Distance 25 Frequency of Treatment Frequency Of Treatment Twice a Day Treatment Plan Physical Therapy Treatment Plan Bed Mobility Training,Transfer Training,Gait Training, Therapeutic Exercise,Balance Retraining,Discharge Planning, Neuromuscular Re-ed Recommendations To Nursing Amount of Assist Needed 2 Person Assist Discharge Recommendations PT Discharge Recommendations SNF Rehab Transportation Needs at Discharge Private Vehicle,Wheelchair/ Cabulance
[2024-03-02] MEDS: EZETIMIBE 10 MG TABLET PO (15:46)
[2024-03-02] MEDS: LOSARTAN 50 MG TABLET PO (15:47)
[2024-03-02] MEDS: ASPIRIN EC 81 MG TABLET PO (15:47)
--- NOTE | 2024-03-02 15:55 | PT.IPTN ---
Physical Therapy Treatment Note M2 PT-IP Current Condition Start: 03/02/24 12:08 Freq: Status: Active Protocol: Document 03/02/24 10:00 NM (Rec: 03/02/24 12:43 NM [id number]) Physical Therapy Current Condition Current Condition Evaluation Date 03/02/24 Treatment Diagnosis generalized weakness, limited mobility s/p GLF M3 PT-IP Subjective Start: 03/02/24 12:08 Freq: Status: Active Protocol: Document 03/02/24 15:55 AB (Rec: 03/02/24 17:02 AB [id number]) Subjective Physical Therapy Visit Type Type Treatment Note Visit Start Time 15:55 Visit Stop Time 16:15 Number of RUBBERIZING MECHANIC Visits 0 Physical Therapy Visit Comments Patient Comments initially refusing PT but agreed after motivation Therapy Pain Assessment Pain When Pain Assessed At Rest Pain Present Pain Present Pain Reported Location Left leg Scale Used pain scale not stated Lower Back Scale Used pain scale not stated M4 PT-IP Mobility and Gait Start: 03/02/24 12:08 Freq: Status: Active Protocol: Document 03/02/24 15:55 AB (Rec: 03/02/24 17:02 AB [id number]) PT-Bed Mobility Assessment Supine to Sit Supine to Sit Moderate Assistance,1 Person Assistance,Head of Bed Elevated,Bedrails Sit to Supine Sit to Supine Maximum Assistance,2 Person Assistance,Head of Bed Elevated,Bedrails PT-Transfer Assessment Sit to and From Stand Sit to and from Stand Minimal Assistance,Moderate Assistance,1 Person Assistance ,Use of Upper Extremities Equipment Transfer Assistive Device Gait Belt,Front Wheeled Walker Orthotic/Prosthetic Devices or Brace: No Comments Mobility Comments pt supine in bed and initially refusing PT but then agreed afterwards. spouse in room with pt. pt completed supine to sit mod A and cues. HOB elevated and pt used bed rail to assist. able to sit on EOB CGA. completed sit to stand min to mod A and cues. bed height elevated. pt able to march in place using FWW for support x 15 min to mod A and cues. pt sat back on EOB and rested. pt's beddings needed to be changed and agreed to get up again. pt completed sit to stand min A and able to take a few steps ~ 2 ft forward/ backwards and then sideways to HOB using FWW min A and cues. pt sat back on EOB. completed sit to supine max A x 2 and max cues. c/o LE pain needing assist to elevated to bed. positioned pt in bed. call light within reach. left pt with spouse and NAC. Gait Assessment Gait Gait Assistance Required: Minimum Assistance,Moderate Assistance Distance (Feet) 4 Able to Maintain Weight Bearing Status Yes During Gait Assistive Devices Assistive Device Gait Belt,Front Wheeled Walker Orthotic/Prosthetic Devices or Brace: No Gait Deviations General Gait Pattern Step-to Gait Factors Limiting Gait Function Factors Limiting Gait Function Decreased Activity Tolerance, Decreased Strength,Difficulty Following Directions,Limited Range of Motion,Pain,Poor Balance,Poor Safety Awareness M5 PT-IP Objective Assessments Start: 03/02/24 12:08 Freq: Status: Active Protocol: Document 03/02/24 10:00 NM (Rec: 03/02/24 12:43 NM [id number]) Orientation Orientation/Cognition Level of Alertness Alert Orientation Name Language Function Ability Expressive Aphasia Safety Awareness Understands Safety Issues Gross Range of Motion Upper Extremity ROM Assessment Within Functional Limits Lower Extremity ROM Assessment Right Impaired Impairments Decreased hip flexion Strength Upper Extremity Strength Assessment Within Functional Limits Lower Extremity Strength Assessment Right Impaired Hip 3/5 hip flex, 4-/5 hip abd/add Knee 4-/5 knee ext/flex Ankle 4-/5 dorsiflexion and seated plantarflexion M6 PT-IP Treatment Start: 03/02/24 12:08 Freq: Status: Active Protocol: Document 03/02/24 15:55 AB (Rec: 03/02/24 17:02 AB [id number]) Physical Therapy Treatment Education Education Provided Safety M7 PT-IP Assessment and Plan Start: 03/02/24 12:08 Freq: Status: Active Protocol: Document 03/02/24 15:55 AB (Rec: 03/02/24 17:02 AB [id number]) PT Summary Assessment and Plan Potential Rehabilitation Potential Fair Summary Impairments Pain,ROM,Strength,Balance, Coordination,Sensation,Tone, Cognition,Bed Mobility, Transfers,Gait,Activity Tolerance Progress Towards Goals Slow Progress due to Pain Assessment Summary pt requiring mod A to max A x 2 for bed mobility, min to mod A for sit to stand and was able to take a few steps using FWW min to mod A and cues. pt will require 24/ assist and will benefit from SNF rehab to improve overall strength and mobility. Goals Bed Mobility Goal Standby Assistance,Minimal Assistance Transfer Goal Minimal Assistance,Front Wheeled Walker Gait Goal Minimal Assistance,Front Wheel Walker Gait Distance 25 Days to Meet Goals 10 Frequency of Treatment Frequency Of Treatment Once a Day Treatment Plan Physical Therapy Treatment Plan Bed Mobility Training,Transfer Training,Gait Training, Therapeutic Exercise,Balance Retraining,Discharge Planning, Neuromuscular Re-ed Recommendations To Nursing Amount of Assist Needed 2 Person Assist Discharge Recommendations PT Discharge Recommendations SNF Rehab Transportation Needs at Discharge Private Vehicle,Wheelchair/ Cabulance
--- NOTE | 2024-03-02 18:58 | CM.SWNOTE ---
ED BANK TELLER Note BANK TELLER receives call from [facility] requesting disposition about patient as he is currently in service with [facility]. PT enters note about patient recommendation later this afternoon and recommends SNF rehab for patient. BANK TELLER enters room to meet with patient and spouse. Patient and spouse reference is [facility]. BANK TELLER sends clinicals for review to both SNF rehab facilities. [facility] at [facility] calls and states that patient is accepted and they can arrange transport, likely for tomorrow. BANK TELLER completes PASSR and faxes it to [facility]. BANK TELLER calls back [facility] to confirm transport and leaves VM. BANK TELLER to hand off email to BANK TELLER for tomorrow to set up transport and coordinate packet for accepted SNF Rehab at [facility]. Geovanna Mendez, [employer]
[2024-03-02] MEDS: carvediloL 12.5 MG TABLET PO (21:12)
[2024-03-02] MEDS: SERTRALINE 50 MG TABLET PO (21:14)
[2024-03-02] MEDS: BRILINTA 90 MG 90 EACH PO (21:14)
[2024-03-03] VITALS (22 sets, daily range): BP systolic 119–144; BP diastolic 64–78; PULSE 59–69; RESP 17–18; TEMP 36.7; O2SAT 93–96
--- NOTE | 2024-03-03 04:19 | PC.NURSE ---
Pt gets short of breath with movement in and to edge of bed when attempting to use the urinal. Pt able to urinate 200 ml of dark yellow urine. Assisted pt in repositioning self back into his hospital bed. SCDs running, red socks on bilateral feet. Positioned HOB to pt comfort level.
[2024-03-03] MEDS: LOSARTAN 50 MG TABLET PO (08:11)
[2024-03-03] MEDS: EZETIMIBE 10 MG TABLET PO (08:18)
[2024-03-03] MEDS: carvediloL 12.5 MG TABLET PO (08:18)
[2024-03-03] MEDS: allopurinoL 100 MG TABLET 300 MG PO (08:19)
[2024-03-03] MEDS: BRILINTA 90 MG 90 EACH PO (08:19)
[2024-03-03] MEDS: ASPIRIN EC 81 MG TABLET PO (08:19)
== END 2024-03-03 12:15 ==
PROVIDERS: Emergency Provider Emergency Medicine; Family Provider Student in an Organized Health Care Education/Training Program; PCP Internal Medicine
DX: R53.1 Weakness (principal); R47.01 Aphasia; D64.9 Anemia, unspecified; M25.561 Pain in right knee; I25.2 Old myocardial infarction; R29.712 NIHSS score 12; M25.552 Pain in left hip; M25.551 Pain in right hip; M54.50 Low back pain, unspecified; I44.0 Atrioventricular block, first degree; Z95.5 Presence of coronary angioplasty implant and graft; W19.XXXA Unspecified fall, initial encounter; I10 Essential (primary) hypertension; S00.81XA Abrasion of other part of head, initial encounter
CPT/HCPCS: 36415; 70450; 70496; 70498; 72100; 72125; 72170; 73562; 80053; 80320; 81003; 81015; 82550; 82962; 83690; 83735; 84484; 85025; 85610; 85730; 86850; 86900; 86901; 87086; 93005; 97161; 97530; 99285; Q9967

== ENCOUNTER 2024-03-22 00:29 | Emergency (ER) | payer MEDICARE, OTHER, SELFPAY ==
[2023-02-20 16:04] VITALS: BMI 39.9
[2024-03-22] VITALS (24 sets, daily range): BP systolic 91–149; BP diastolic 52–78; PULSE 72–87; RESP 15–26; TEMP 36.2–36.9; O2SAT 97–99; BMI 29.8
[2024-03-22 00:49] LABS: Add Manual Diff / Slide Review NO; Basophils Absolute Auto 100 /uL (0-100); Basophils Percent Auto 0.7 % (0-2); Eosinophils Absolute Auto 200 /uL (0-450); Eosinophils Percent Auto 1.1 % (2-4); Lymphocytes Absolute Auto 1300 /uL (1100-4500); Lymphocytes Percent Auto 9.1 % (25-40); Mean Corpuscular HGB Conc 31.6 % (30-36); Mean Corpuscular Hemoglobin 29.6 PG (26-34); Mean Corpuscular Volume 93.6 fL (80-100); Monocytes Absolute Auto 1100 /uL (0-900); Neutrophils Absolute Auto 11400 /uL (1500-7000); Neutrophils Percent Auto 81.1 % (50-75); Platelet Count 268 X10^3/uL (150-400); Red Blood Cell Count 2.24 X10^6/uL (4.5-5.9); Red Cell Distribution Width 18.6 % (11.6-14.8)
[2024-03-22 00:50] LABS: Hemoglobin 6.6 g/dL (13.5-17.5)
[2024-03-22 00:54] LABS: INR 1.3 (0.9-1.3); Prothrombin Time 14.6 SECONDS (9.4-12.5)
--- NOTE | 2024-03-22 00:54 | ED_ITS ---
HPI - GI Bleed General Chief complaint: GI Bleed Stated complaint: lower gi bleed Time Seen by Provider: 03/22/24 00:32 Source: patient, family and EMS Mode of arrival: EMS Limitations: no limitations History of Present Illness HPI Narrative: 79-year-old male with a history of cerebrovascular disease with a prior history of strokes. Baseline has expressive aphasia and balance issues. Also has a history of coronary artery disease. Is on Brilinta and aspirin. Here for evaluation of approximately 12-24 hours of rectal bleeding. Patient's provides quite a bit of the history given the patient's issues with the aphasia. She states he was at his baseline mental status. Started to have bright red blood in his stool this morning. Has had multiple episodes. No vomiting. Patient does describe no chest pain or shortness of breath. Potentially is having some abdominal discomfort however it is difficult to completely ascertain this because of his aphasia was most recently seen at this facility approximately 3 weeks ago for weakness. Was transferred to nursing facility but only stayed for 24 hours and then left. Does have home health. Approximately 6 weeks ago was seen here at this facility and transferred to [facility] for a NSTEMI. According to his while he was there he was also evaluated for GI bleed. He did receive packed red blood cells. Had an upper endoscopy and colonoscopy. His stated that she was told that the source of bleeding was not found. She was told by the GI doctors that if he ever had bleeding again he may need more advanced studies at a larger facility. Because of his GI bleeding he did not have a cardiac catheterization. Related Data Home Medications Medication Instructions Recorded Confirmed aspirin 81 mg tablet,delayed 81 mg PO DAILY 08/12/18 03/02/24 release carvedilol 12.5 mg tablet 12.5 mg PO BID 05/20/22 03/01/24 evolocumab 140 mg/mL subcutaneous 140 mg SUBCUT Q2W 11/18/23 03/02/24 pen injector (Danni Gomez) sertraline 50 mg tablet 25 mg PO DAILY 02/21/24 03/02/24 tramadol 50 mg tablet 50 mg PO Q6HR PRN Pain, Moderate 02/21/24 03/01/24 allopurinol 300 mg tablet 300 mg PO DAILY 03/01/24 03/01/24 ezetimibe 10 mg tablet 10 mg PO DAILY 03/01/24 03/01/24 losartan 100 mg tablet 50 mg PO DAILY 03/01/24 03/01/24 ticagrelor 90 mg tablet (Brilinta) 90 mg PO BID 03/01/24 03/01/24 Allergies Allergy/AdvReac Type Severity Reaction Status Date / Time prednisone Allergy Severe Confusion Verified 03/01/24 20:20 celecoxib [From Celebrex] Allergy Intermediate Gastrointestinal Verified 03/01/24 20:20 Upset oxycodone [From Percocet] Allergy Intermediate Nausea Verified 03/01/24 20:20 [id number] Reductase AdvReac Severe Autoimmune Verified 03/01/24 20:20 Inhibitor myositis [Vumcfgf-Bdw-Ieo Reductase Inhibitor] codeine AdvReac Mild Redness of Verified 03/01/24 20:20 Skin icosapent ethyl AdvReac Mild Nausea Verified 03/01/24 20:20 Review of Systems Review of Systems ROS Unobtainable: All systems reviewed & are unremarkable except as noted in HPI and below Patient History Medical History Left knee pain Iron deficiency anemia Reactive depression Cerebrovascular disease Gait instability Anemia Primary osteoarthritis involving multiple joints Gout Mixed hyperlipidemia Essential hypertension Chronic anticoagulation Paroxysmal atrial fibrillation Hx of non-ST elevation myocardial infarction (NSTEMI) Low back pain Kidney stones Coronary artery disease Surgical History Hx of cardiac catheterization H/O lithotripsy Hx of appendectomy Family History Mother Renal cancer Father War operations involving destruction of aircraft due to collision with other aircraft, personnel, sequela Social History details: (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), 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 household members: spouse Smoking Status: Former smoker alcohol intake: current Smoking Status: Former smoker alcohol intake frequency: holidays/special occasions only Substance Use Type: does not use Exam Initial Vital Signs Initial Vital Signs: Vital Signs Pulse Rate 87 03/22/24 00:33 Respiratory Rate 15 03/22/24 00:33 Pulse Oximetry 98 03/22/24 00:33 Const General: cooperative and ill appearing (Chronically ill-appearing) HENMT Head: normal to inspection and normocephalic Resp Effort & Inspection: normal respiratory effort Auscultation: clear to auscultation bilaterally Cardio Rate: regular rate Rhythm: regular rhythm GI Inspection: normal to inspection Palpation: soft and No firm Skin General: pallor Neuro General: patient alert, patient awake and moves all extremities Extrem General: normal to inspection and capillary refill normal Course Orders Ordered: ED Orders 03/22/24 00:32 Complete Blood Count AUTO DIFF Stat Comprehensive Metabolic Panel Stat Lipase Stat PTT Partial Thromboplastin Ryan Stat Prothrombin Time INR Stat 03/22/24 00:35 Type and Screen Stat transfuse [Packed Cells] Stat 03/22/24 00:53 Consult to General Surgery Stat 03/22/24 05:15 Hemoglobin and Hematocrit Stat Discontinued Medications Pantoprazole Sodium (Pantoprazole 40 Mg Vial) 80 mg IV NOW ONE Stop: 03/22/24 02:05 Last Admin: 03/22/24 02:19 Dose: 80 mg Documented By: Vital Signs Vital signs: Vital Signs - 8 hr 03/22/24 00:33 03/22/24 00:34 03/22/24 00:34 Temperature Pulse Rate 87 87 Respiratory Rate 15 23 Blood Pressure 106/71 Pulse Oximetry 98 98 Oxygen Delivery Method 03/22/24 00:40 03/22/24 00:50 03/22/24 00:50 Temperature 97.2 F L Pulse Rate 87 83 Respiratory Rate 22 24 Blood Pressure 106/54 L 107/62 Pulse Oximetry 98 98 Oxygen Delivery Method Room Air Room Air 03/22/24 01:00 03/22/24 01:00 03/22/24 01:29 Temperature 98 F Pulse Rate 83 81 Respiratory Rate 26 H 20 Blood Pressure 119/63 111/57 L Pulse Oximetry 97 Oxygen Delivery Method 03/22/24 01:29 03/22/24 01:29 03/22/24 01:30 Temperature Pulse Rate 80 83 Respiratory Rate 22 25 H Blood Pressure 111/57 L Pulse Oximetry 97 98 Oxygen Delivery Method 03/22/24 01:30 03/22/24 01:41 03/22/24 01:41 Temperature Pulse Rate 80 Respiratory Rate 21 Blood Pressure 109/58 L 91/58 L Pulse Oximetry 97 Oxygen Delivery Method 03/22/24 01:45 03/22/24 01:46 03/22/24 01:46 Temperature 98.4 F Pulse Rate 80 80 Respiratory Rate 21 20 Blood Pressure 102/58 L 102/58 L Pulse Oximetry 97 Oxygen Delivery Method 03/22/24 02:00 03/22/24 02:00 03/22/24 02:16 Temperature Pulse Rate 77 Respiratory Rate 24 Blood Pressure 105/63 138/67 Pulse Oximetry 98 Oxygen Delivery Method 03/22/24 02:16 03/22/24 02:30 03/22/24 02:30 Temperature Pulse Rate 86 81 Respiratory Rate 24 23 Blood Pressure 102/54 L Pulse Oximetry 98 98 Oxygen Delivery Method 03/22/24 02:45 03/22/24 02:45 03/22/24 03:00 Temperature Pulse Rate 79 83 Respiratory Rate 22 25 H Blood Pressure 116/59 L Pulse Oximetry 98 99 Oxygen Delivery Method Room Air 03/22/24 03:00 03/22/24 03:15 03/22/24 03:23 Temperature 97.9 F Pulse Rate 81 83 Respiratory Rate 24 Blood Pressure 104/55 L 113/52 L 118/70 Pulse Oximetry 98 Oxygen Delivery Method Room Air 03/22/24 03:45 03/22/24 03:46 03/22/24 04:15 Temperature 97.6 F Pulse Rate 76 78 Respiratory Rate 18 Blood Pressure 113/66 113/76 149/77 H Pulse Oximetry 98 Oxygen Delivery Method Room Air 03/22/24 04:45 03/22/24 05:07 03/22/24 05:15 Temperature 97.8 F Pulse Rate 74 85 72 Respiratory Rate 20 Blood Pressure 123/67 137/78 123/73 Pulse Oximetry 98 98 Oxygen Delivery Method Room Air Room Air 03/22/24 05:45 Temperature Pulse Rate 74 Respiratory Rate Blood Pressure 137/70 Pulse Oximetry 97 Oxygen Delivery Method Room Air MDM - GI Bleed Medical Records Attestation: I reviewed the patient's medical records. Lab Data Attestation: I reviewed the patient's lab results. 03/22/24 05:15 03/22/24 00:32 Labs: Lab Results 03/22/24 03/22/24 03/22/24 Range/Units 00:32 00:35 05:15 WBC 14.0 H (4.5-11.0) X10^3/uL RBC 2.24 L (4.5-5.9) X10^6/uL Hgb 6.6 L* 7.7 L (13.5-17.5) g/dL Hct 21.0 L 23.9 L (41-53) % MCV 93.6 (80-100) fL MCH 29.6 (26-34) PG MCHC 31.6 (30-36) % RDW 18.6 H (11.6-14.8) % Plt Count 268 (150-400) X10^3/uL Neut % (Auto) 81.1 H (50-75) % Lymph % (Auto) 9.1 L (25-40) % [place] % (Auto) 8.0 (3-14) % Eos % (Auto) 1.1 L (2-4) % Baso % (Auto) 0.7 (0-2) % Neut # (Auto) 80289 H (6317-8668) /uL Lymph # (Auto) 1300 (3398-2052) /uL [place] # (Auto) 1100 H (0-900) /uL Eos # (Auto) 200 (0-450) /uL Baso # (Auto) 100 (0-100) /uL PT 14.6 H (9.4-12.5) SECONDS INR 1.3 (0.9-1.3) APTT 31 (25.1-36.5) SECONDS Sodium 140 (137-145) mmol/L Potassium 4.3 (3.4-5.1) mmol/L Chloride 114 H (98-107) mmol/L Carbon Dioxide 16 L (22-32) mmol/L BUN 47 H (9-20) mg/dL Creatinine 0.91 (0.66-1.25) mg/dL Estimated GFR > 60 (>60) mL/min BUN/Creatinine Ratio 51.6 H (6-22) Glucose 114 H (80-110) mg/dL Calcium 8.2 L (8.4-10.2) mg/dL Total Bilirubin 0.3 (0.2-1.3) mg/dL AST 20 (17-59) IU/L ALT 20 (<50) IU/L Alkaline Phosphatase 72 (38-126) U/L Total Protein 6.2 L (6.3-8.2) g/dL Albumin 3.3 L (3.5-5.0) g/dL Globulin 2.9 (1.7-4.1) g/dL Albumin/Globulin Ratio 1.1 (1.0-2.8) Lipase 98 (23-300) U/L Blood Type O Positive Antibody Screen Negative Crossmatch See Detail MDM Narrative Medical decision making narrative: Patient with multiple complex medical problems. Is on Brilinta and aspirin. Has had multiple episodes of rectal bleeding today. Blood pressure has a systolic in the 100s to 110 range. Review his medical record shows that for the past couple years when he has been in the emergency department his systolic blood pressures have been 95-115 when he has been seen for issues not associated with GI bleeding for cardiac issues. Has not had any bowel movements here in the emergency department. Initial hemoglobin hematocrit are low. This is below his baseline. He was transfused 2 units of packed red blood cells. His blood pressure improved to the 115 range after 2nd unit of packed red blood cells. He was at his baseline mental status. No chest pain. Had a discussion with Dr. Ulloa on-call for General surgery who stated that he would be happy to evaluate the patient after admission. I then discussed the case with Dr. Cuevas hospitalist on-call who stated that patient may benefit from transfer to facility that has higher level of care and GI given his recent (within the past 6-8 weeks) upper endoscopy and lower endoscopy for GI bleeding without specific source found. I did discuss the case with Dr. Blanc hospitaltrino on-call and Lynda trejo who accepts the patient in transfer. Patient was stable for transport. Attempted to get records from [facility] where he had his last endoscopy however we have been unsuccessful at obtaining these records. Critical Care Time Critical Care Time Critical Care Time: Yes Total Critical Care Time: 35 Attestation: The high probability of a clinically significant, sudden or life threatening deterioration of the [cardiovascular and GI] system(s) required my full and direct attention, intervention and personal management. The aggregate critical care time was [35] minutes. This time is in addition to time spent performing reported procedures but includes the following: [X] Data Review and interpretation [X] Patient assessment and monitoring of vital signs [X] Documentation [X] Medication orders and management Discharge Plan Departure Patient Disposition: [facility] Clinical Impression: GI bleed, Anemia Prescriptions: No Action Repatha SureClick 140 mg/mL pen injector 140 mg SUBCUT Q2W Patient Comments: [NO ORIGINAL SIG] aspirin 81 mg Tablet,Delayed Release (Dr/Ec) 81 mg PO DAILY sertraline 50 mg Tablet 25 mg PO DAILY tramadol 50 mg tablet 50 mg PO Q6HR PRN (Reason: Pain, Moderate) allopurinol 300 mg tablet 300 mg PO DAILY Brilinta 90 mg tablet 90 mg PO BID losartan 100 mg tablet 50 mg PO DAILY ezetimibe 10 mg tablet 10 mg PO DAILY carvedilol 12.5 mg tablet 12.5 mg PO BID Referrals: Camacho Smith MD [Primary Care Provider] - Stand Alone Forms: Patient Portal/API
--- NOTE | 2024-03-22 00:56 | PC.NURSE ---
Pt arrives by EMS. Reports that he is very weak and nearly passed out while on the toilet. Having dark tarry like stools. Pt has expressive aphasia, has difficulty getting words out. Pt signed consent for blood products. Skin is pale to dusky color.
[2024-03-22 00:57] LABS: PTT Partial Thromboplastin Tim 31 SECONDS (25.1-36.5)
[2024-03-22 00:59] LABS: Carbon Dioxide 16 mmol/L (22-32); HEMOLYSIS < 15 (0-50)
[2024-03-22 01:05] LABS: Alanine Aminotransferase 20 IU/L (<50); Albumin 3.3 g/dL (3.5-5.0); Albumin Globulin Ratio 1.1 (1.0-2.8); Alkaline Phosphatase 72 U/L (38-126); Aspartate Aminotransferase 20 IU/L (17-59); BUN Creatinine Ratio 51.6 (6-22); Bilirubin Total 0.3 mg/dL (0.2-1.3); Blood Urea Nitrogen 47 mg/dL (9-20); Calcium 8.2 mg/dL (8.4-10.2); Chloride 114 mmol/L (98-107); Estimated Glomerular Filt Rate > 60 mL/min (>60); Globulin 2.9 g/dL (1.7-4.1); Glucose 114 mg/dL (80-110); Lipase 98 U/L (23-300); Potassium 4.3 mmol/L (3.4-5.1); Sodium 140 mmol/L (137-145); Total Protein 6.2 g/dL (6.3-8.2)
--- NOTE | 2024-03-22 01:59 | PC.NURSE ---
pt had good results from enema
[2024-03-22] MEDS: PANTOPRAZOLE 40 MG VIAL 80 MG IV (02:19)
--- NOTE | 2024-03-22 05:15 | PC.NURSE ---
PODIATRY DOCTOR note: Called [facility] for a possible transfer. Spoke to Martin at their transfer center. Patient on waitlist. Spoke to Matilde at [facility]. Patient accepted at at [id number]. NWA eta [id number]
[2024-03-22 05:23] LABS: Hematocrit 23.9 % (41-53); Hemoglobin 7.7 g/dL (13.5-17.5)
== END 2024-03-22 06:16 | disposition short-term general hospital (02) ==
LOC: ED 01:53 → AC 02:37
PROVIDERS: Emergency Provider Emergency Medicine; Family Provider Student in an Organized Health Care Education/Training Program; PCP Internal Medicine; Referring Provider Emergency Medicine
DX: K92.2 Gastrointestinal hemorrhage, unspecified (principal); D64.9 Anemia, unspecified; R47.01 Aphasia; R79.89 Other specified abnormal findings of blood chemistry; I25.10 Atherosclerotic heart disease of native coronary artery without angina pectoris; Z86.73 Personal history of transient ischemic attack (TIA), and cerebral infarction without residual deficits; I25.2 Old myocardial infarction
CPT/HCPCS: 36415; 36430; 80053; 83690; 85014; 85018; 85025; 85610; 85730; 86850; 86900; 86901; 96374; 99284; 99291; P9016; J2470

== ENCOUNTER 2024-04-22 11:50 | Emergency (ER) | payer MEDICARE, OTHER, SELFPAY ==
[2023-02-20 16:04] VITALS: BMI 39.9
[2024-04-22] VITALS (21 sets, daily range): BP systolic 137–183; BP diastolic 78–90; PULSE 56–99; RESP 14–39; TEMP 36.6; O2SAT 92–98; BMI 39.5
--- NOTE | 2024-04-22 11:59 | ED_ITS ---
HPI - General Adult General Chief complaint: Abdominal Pain Stated complaint: Nausea, Abd Pain Time Seen by Provider: 04/22/24 11:50 History of Present Illness HPI narrative: 79-year-old gentleman with a history of AFib post Watchman procedure with periprocedural stroke, mild persistent aphasia and gait instability, coronary artery disease on Brilinta, recent upper GI bleed and NSTEMI. Workup for that GI bleed led to endoscopy on March 22 at [facility] and he was found to have a duodenal ulcerated mass with no evidence of continued bleeding. Notes from indicate that palliative care consult was obtained and discussion with the proceed surgery or not, eventually discharged to halfway facility for 2 weeks. Got home on April 16. Has been having trouble with weakness. Medics noted that they were called to his house yesterday to simply help him move from the toilet back into the living room. You were called out today with severe abdominal pain. Patient is in obvious distress moaning pointing to his upper abdomen. He has had multiple doses of narcotic prior to arrival and still in significant pain. He has some guarding and mild rebound in the upper abdomen. Related Data Home Medications Medication Instructions Recorded Confirmed aspirin 81 mg tablet,delayed 81 mg PO DAILY 08/12/18 03/02/24 release carvedilol 12.5 mg tablet 12.5 mg PO BID 05/20/22 03/01/24 evolocumab 140 mg/mL subcutaneous 140 mg SUBCUT Q2W 11/18/23 03/02/24 pen injector (Danni Gomez) sertraline 50 mg tablet 25 mg PO DAILY 02/21/24 03/02/24 tramadol 50 mg tablet 50 mg PO Q6HR PRN Pain, Moderate 02/21/24 03/01/24 allopurinol 300 mg tablet 300 mg PO DAILY 03/01/24 03/01/24 ezetimibe 10 mg tablet 10 mg PO DAILY 03/01/24 03/01/24 losartan 100 mg tablet 50 mg PO DAILY 03/01/24 03/01/24 ticagrelor 90 mg tablet (Brilinta) 90 mg PO BID 03/01/24 03/01/24 Previous Rx's Medication Instructions Recorded ciprofloxacin HCl 500 mg tablet 500 mg PO BID #10 tabs 04/22/24 Allergies Allergy/AdvReac Type Severity Reaction Status Date / Time prednisone Allergy Severe Confusion Verified 04/22/24 11:58 celecoxib [From Celebrex] Allergy Intermediate Gastrointestinal Verified 04/22/24 11:58 Upset oxycodone [From Percocet] Allergy Intermediate Nausea Verified 04/22/24 11:58 [id number] Reductase AdvReac Severe Autoimmune Verified 04/22/24 11:58 Inhibitor myositis [Tzydugc-Ran-Zzv Reductase Inhibitor] codeine AdvReac Mild Redness of Verified 04/22/24 11:58 Skin icosapent ethyl AdvReac Mild Nausea Verified 04/22/24 11:58 Review of Systems Review of Systems Narrative: Pertinent positive and negative findings as per HPI Patient History Medical History (Updated 04/22/24 @ 19:23 by Inge Tobin MD) Gastric cancer Left knee pain Iron deficiency anemia Reactive depression Cerebrovascular disease Gait instability Anemia Primary osteoarthritis involving multiple joints Gout Mixed hyperlipidemia Essential hypertension Chronic anticoagulation Paroxysmal atrial fibrillation Hx of non-ST elevation myocardial infarction (NSTEMI) Low back pain Kidney stones Coronary artery disease Surgical History Hx of cardiac catheterization H/O lithotripsy Hx of appendectomy Family History Mother Renal cancer Father War operations involving destruction of aircraft due to collision with other aircraft, personnel, sequela Social History details: (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 Full and symmetrical air movement Cardiac: Regular rate and rhythm no murmurs no bruits Abdomen: Quite tender with some guarding in the upper abdomen. No significant tenderness in the lower abdomen. He has not significantly distended Skin: Pale, no diaphoresis Neurologic: Moving all extremities, apparently his word-finding difficulties is his baseline. Does have a baseline resting tremor Extremities: No trauma, well perfused Psych: Cooperative, Initial Vital Signs Initial Vital Signs: Vital Signs Temperature 97.8 F 04/22/24 11:53 Pulse Rate 74 04/22/24 11:53 Respiratory Rate 30 H 04/22/24 11:53 Blood Pressure 183/87 H 04/22/24 11:53 Pulse Oximetry 96 04/22/24 11:53 Oxygen Delivery Method Room Air 04/22/24 11:53 Course Orders Ordered: ED Orders 04/22/24 11:58 CT abdomen pelvis w con Stat 04/22/24 11:59 XR chest 1V Stat EKG-12 Lead Stat 04/22/24 12:00 Complete Blood Count AUTO DIFF Stat Comprehensive Metabolic Panel Stat Lactate (Lactic Acid) Stat Lipase Stat Troponin I Stat 04/22/24 12:18 Blood Culture Stat 04/22/24 13:48 Urinalysis and Microscopic Stat Urine Culture Stat Hydromorphone HCl (Hydromorphone 0.5 Mg Inj) 0.5 mg IV Q15MIN PRN PRN Reason: Pain, Last Admin: 04/22/24 12:18 Dose: 0.5 mg Documented By: LISY Discontinued Medications Ondansetron HCl (Ondansetron 4 Mg/2 Ml Inj) 4 mg IV NOW ONE Stop: 04/22/24 11:59 Last Admin: 04/22/24 12:18 Dose: 4 mg Documented By: LISY Vital Signs Vital signs: Vital Signs - 8 hr 04/22/24 11:53 04/22/24 11:54 04/22/24 11:55 Temperature 97.8 F Pulse Rate 74 99 H 63 Respiratory Rate 30 H 34 H 26 H Blood Pressure 183/87 H Pulse Oximetry 96 98 Oxygen Delivery Method Room Air 04/22/24 11:55 04/22/24 12:00 04/22/24 12:01 Temperature Pulse Rate 62 Respiratory Rate 39 H Blood Pressure 183/87 H 155/85 H Pulse Oximetry 98 Oxygen Delivery Method 04/22/24 12:01 04/22/24 12:16 04/22/24 12:16 Temperature Pulse Rate 62 60 Respiratory Rate 23 24 Blood Pressure 164/90 H Pulse Oximetry 98 98 Oxygen Delivery Method Room Air 04/22/24 12:30 04/22/24 13:00 04/22/24 13:30 Temperature Pulse Rate 67 60 59 L Respiratory Rate 25 H 16 Blood Pressure Pulse Oximetry 98 97 95 Oxygen Delivery Method 04/22/24 14:00 04/22/24 14:30 04/22/24 14:43 Temperature Pulse Rate 59 L 59 L 57 L Respiratory Rate 22 14 16 Blood Pressure Pulse Oximetry 94 92 96 Oxygen Delivery Method 04/22/24 14:43 04/22/24 15:00 04/22/24 15:00 Temperature Pulse Rate 56 L Respiratory Rate 14 Blood Pressure 143/79 H 149/78 H Pulse Oximetry 96 Oxygen Delivery Method 04/22/24 15:30 04/22/24 15:30 04/22/24 16:00 Temperature Pulse Rate 56 L 57 L Respiratory Rate 15 17 Blood Pressure 157/78 H Pulse Oximetry 96 92 Oxygen Delivery Method 04/22/24 16:00 04/22/24 16:30 04/22/24 16:30 Temperature Pulse Rate 58 L Respiratory Rate 18 Blood Pressure 155/79 H 153/82 H Pulse Oximetry 92 Oxygen Delivery Method 04/22/24 17:00 04/22/24 17:00 04/22/24 17:30 Temperature Pulse Rate 59 L 60 Respiratory Rate 20 21 Blood Pressure 144/83 H Pulse Oximetry 96 92 Oxygen Delivery Method 04/22/24 17:30 04/22/24 18:00 04/22/24 18:00 Temperature Pulse Rate 59 L Respiratory Rate 20 Blood Pressure 152/82 H 137/81 Pulse Oximetry 95 Oxygen Delivery Method 04/22/24 18:30 04/22/24 18:30 Temperature Pulse Rate 60 Respiratory Rate 20 Blood Pressure 144/78 H Pulse Oximetry 92 Oxygen Delivery Method Medical Decision Making Lab Data 04/22/24 12:00 04/22/24 12:00 Labs: Lab Results 04/22/24 04/22/24 Range/Units 12:00 13:48 WBC 10.2 (4.5-11.0) X10^3/uL RBC 3.31 L (4.5-5.9) X10^6/uL Hgb 10.2 L (13.5-17.5) g/dL Hct 31.4 L (41-53) % MCV 94.7 (80-100) fL MCH 30.8 (26-34) PG MCHC 32.6 (30-36) % RDW 25.2 H (11.6-14.8) % Plt Count 202 (150-400) X10^3/uL Neut % (Auto) 77.6 H (50-75) % Lymph % (Auto) 11.9 L (25-40) % [place] % (Auto) 8.1 (3-14) % Eos % (Auto) 1.9 L (2-4) % Baso % (Auto) 0.5 (0-2) % Neut # (Auto) 7900 H (9897-8319) /uL Lymph # (Auto) 1200 (9568-1471) /uL [place] # (Auto) 800 (0-900) /uL Eos # (Auto) 200 (0-450) /uL Baso # (Auto) 100 (0-100) /uL RBC Morphology Not Reportable Anisocytosis 1+ H Sodium 140 (137-145) mmol/L Potassium 4.2 (3.4-5.1) mmol/L Chloride 109 H (98-107) mmol/L Carbon Dioxide 22 (22-32) mmol/L BUN 16 (9-20) mg/dL Creatinine 0.74 (0.66-1.25) mg/dL Estimated GFR > 60 (>60) mL/min BUN/Creatinine Ratio 21.6 (6-22) Glucose 112 H (80-110) mg/dL Lactate 2.0 (0.7-2.1) mmol/L Calcium 8.9 (8.4-10.2) mg/dL Total Bilirubin 0.3 (0.2-1.3) mg/dL AST 31 (17-59) IU/L ALT 26 (<50) IU/L Alkaline Phosphatase 82 (38-126) U/L Troponin I < 0.012 (0.01-0.034) ng/mL Total Protein 6.5 (6.3-8.2) g/dL Albumin 3.6 (3.5-5.0) g/dL Globulin 2.9 (1.7-4.1) g/dL Albumin/Globulin Ratio 1.2 (1.0-2.8) Lipase 157 (23-300) U/L Urine Color Yellow Urine Appearance Clear Urine pH 6.0 (4.5-8.0) Ur Specific [place] 1.010 (1.000-1.035) Urine Protein Negative (Negative) Urine Glucose (UA) Negative (Negative) g/dL Urine Ketones Negative (NEGATIVE) Urine Occult Blood Negative (Negative) Urine Nitrate Negative (Negative) Urine Bilirubin Negative (NEGATIVE) Urine Urobilinogen 0.2 (0.2) E.U./dL Ur Leukocyte Esterase Trace H (NEGATIVE) Urine RBC None seen (0-5/HPF) Urine WBC 10-30/hpf H (0-5/HPF) Ur Squamous Epith Cells None seen (0-5/HPF) Urine Bacteria Occasional (0-1) (None) Ur Culture Indicated? Specimen cultured Vol Urine Centrifuged 10ml (spun) Imaging Data CT scan - abdomen/pelvis: Radiologist's Impression: PROCEDURE: CT ABDOMEN PELVIS W CON INDICATIONS: acute pain TECHNIQUE: After the administration of intravenous contrast, axial sections acquired from the lung bases to the pubic symphysis. Coronal and sagittal reformats were performed. For radiation dose reduction, the following was used: automated exposure control, adjustment of mA and/or kV according to patient size. COMPARISON: [facility], CT, CT ABDOMEN PELVIS W CON, 01/24/2023, 20:43. FINDINGS: Image quality: Suboptimal due to motion artifact. Lower Chest: Moderate coronary artery calcifications. ABDOMEN: Liver: No solid mass. Gallbladder: No radiopaque stones. Gallbladder is contracted, with a diffusely thickened wall. Biliary ducts: No biliary dilation. Pancreas: No ductal dilation. Spleen: Size is within normal limits. Calcified granuloma Adrenal Glands: No adrenal nodules. Kidneys and Ureters: No hydronephrosis. No solid mass. No complex renal cystic lesion which requires follow up. Large burden of small, nonobstructing nephrolithiasis. Largest stone measures 4 millimeters on the right and 6 millimeters on the left. Stomach and Bowel: 2.7 centimeter segment wall thickening of the 3rd portion of the duodenum (series 3, image 56) with mild upstream dilation. Colonic diverticulosis without evidence of diverticulitis. Peritoneum: No abnormal intraperitoneal fluid. No free air. Ventral Wall: No significant ventral hernia. Abdominal Nodes: No retroperitoneal or mesenteric adenopathy by size criteria. Vessels: Aorta and inferior vena cava are normal in size. PELVIS: Pelvic Organs: Unremarkable. Bladder: No bladder wall thickening, accounting for underdistention. Pelvic Nodes: No enlarged lymph nodes. Miscellaneous: Fat within the inguinal canals. Bones: No aggressive osseous abnormality. Degenerative disc disease of the lumbar spine. Hip arthroplasties. IMPRESSION: 2.7 centimeter segment of wall thickening of the 3rd portion the duodenum, with mild upstream dilation. Findings could just represent a short segment of nondistention. An infectious or inflammatory process is a consideration, less likely malignancy. Follow-up with GI should be considered. Large burden bilateral nonobstructing nephrolithiasis. Colonic diverticulosis without evidence of diverticulitis. Dictated by: Jesse Martinez M.D. 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 Reportedly is scheduled for surgery at in the near future Data collected from: patient Social determinants of health that may influence the patients condition: Recent extended stay for GI bleed with newly diagnosed duodenal cancer at [facility] Medical records reviewed: Recent hospitalization and [facility] discharge summaries are reviewed Differential considered: Infection, anemia, progressive cancer, bowel obstruction Exam documented above, pertinent findings include: Patient is globally weak, moderate abdominal tenderness. No significant pulmonary or cardiac findings Lab Test results independently reviewed as above. Pertinent findings: CBC shows no leukocytosis, improved anemia and reassuring platelets Chemistries are notable for normal renal function, kidney function is reasonable Troponin is not detectable Lipase is reassuring Urine shows trace leukocyte esterase no red cells positive white cells no squamous cells occasional bacteria it has been cultured Patient did have [id number] colony-forming units of Enterococcus noted on February 19. It was essentially pansensitive Imaging studies independently reviewed: Chest x-ray is unremarkable CT scan shows wall thickening in the 3rd portion of the duodenum consistent with his recently diagnosed duodenal cancer. Mentioned of large volumes stool and nonobstructing nephrolithiasis. Specifically no bladder wall thickening no diverticulitis no intra-abdominal abscess Treatments: Ciprofloxacin Discussion: 79-year-old gentleman with recent upper GI bleed diagnosed with duodenal cancer, recovering nicely in terms of regaining some strength and increasing hematocrit. Over the last couple of days he has been increasingly weak. Urinalysis suspect he may have a bladder infection. Based on the the Enterococcus culture from the end of January of this year we will treat him with ciprofloxacin for 5 days. First dose is given in the emergency department. At this time there was no evidence of sepsis or bowel obstruction. He does have quite a bit of stool throughout his colon and has been eating a low residual diet based on the recent cancer diagnosis since [facility] he has not been using a stool softener or laxative. I did recommend MiraLax. We did review findings of his CT scan which did not show anything beyond that which was known. Patient is still obviously has many questions regarding whether or not to proceed with surgical intervention. His expressive aphasia is clearly frustrating for him in trying to get to questions. At this time he and his think that they will be get able to get him up the to stairs into his house. 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 Once he has on a flat surface he is able to walk 20-40 feet with a walker. We discussed options for going home and they decided against requesting a BLS ambulance. We will help him get into the car and at this time he is safe for discharge Discharge Plan Departure Patient Disposition: Home Clinical Impression: Morbid obesity, Cancer of duodenum, Acute cystitis, Severe muscle deconditioning Abdominal pain Qualifiers: Abdominal location: generalized Qualified Code(s): R10.84 - Generalized abdominal pain Myositis Qualifiers: Myositis type: unspecified type Constipation Qualifiers: Constipation type: unspecified constipation type Qualified Code(s): K59.00 - Constipation, unspecified Instructions: DI for Urinary Tract Infection (UTI), DI for Constipation Activity Restrictions/Additional Instructions: I think that you are symptoms today are multifactorial I am concerned that you are developing mild bladder infection. I am going to ask you to complete 5 days of ciprofloxacin. Antibiotics have been electronically transmitted to your pharmacy I am not seeing signs of overwhelming infection, intestinal obstruction or abscess. Your cancer does not look like it has changed from recent studies You do have significant amount of stool in your colon. Eating the low-fiber diet as recommended regarding the cancer, not being as active as usual and not taking a stool softener all are contributing to this. I would recommend at least 1-2 scoops of MiraLax, this is [id number], and a large glass of water daily to keep your stool soft and encourage complete bowel movements At this time I believe it is safe for you to be discharge home. If you find that you are developing new symptoms or have additional concerns please feel free to return to the ER Prescriptions: New ciprofloxacin HCl 500 mg tablet 500 mg PO BID Qty: 10 0RF No Action Repatha SureClick 140 mg/mL pen injector 140 mg SUBCUT Q2W Patient Comments: [NO ORIGINAL SIG] aspirin 81 mg Tablet,Delayed Release (Dr/Ec) 81 mg PO DAILY sertraline 50 mg Tablet 25 mg PO DAILY tramadol 50 mg tablet 50 mg PO Q6HR PRN (Reason: Pain, Moderate) allopurinol 300 mg tablet 300 mg PO DAILY Brilinta 90 mg tablet 90 mg PO BID losartan 100 mg tablet 50 mg PO DAILY ezetimibe 10 mg tablet 10 mg PO DAILY carvedilol 12.5 mg tablet 12.5 mg PO BID Referrals: Camacho Smith MD [Primary Care Provider] - Stand Alone Forms: Patient Portal/API/Survey
--- NOTE | 2024-04-22 11:59 | DI.RAD.S_ITS ---
PROCEDURE: XR CHEST 1V INDICATIONS: acute upper abd pain TECHNIQUE: One view of the chest was acquired. COMPARISON: [facility], , XR CHEST 1V, 02/20/2024, 15:03. [facility], CR, XR CHEST 1V, 01/24/2023, 19:15. FINDINGS: Surgical changes and devices: None. Lungs and pleura: Lungs are clear. No pleural effusions or pneumothorax. Mediastinum: Mediastinal contours appear normal. Heart size is normal. Bones and chest wall: No suspicious bony lesions. Overlying soft tissues appear unremarkable. IMPRESSION: No acute cardiopulmonary abnormality is seen. Dictated by: Jesse Martinez M.D. on 04/22/2024 at 12:48 Approved by: Jesse Martinez M.D. on 04/22/2024 at 12:55
[2024-04-22 12:17] LABS: Add Manual Diff / Slide Review NO; Basophils Absolute Auto 100 /uL (0-100); Basophils Percent Auto 0.5 % (0-2); Eosinophils Absolute Auto 200 /uL (0-450); Eosinophils Percent Auto 1.9 % (2-4); Hematocrit 31.4 % (41-53); Hemoglobin 10.2 g/dL (13.5-17.5); Lymphocytes Absolute Auto 1200 /uL (1100-4500); Lymphocytes Percent Auto 11.9 % (25-40); Mean Corpuscular HGB Conc 32.6 % (30-36); Mean Corpuscular Hemoglobin 30.8 PG (26-34); Mean Corpuscular Volume 94.7 fL (80-100); Monocytes Absolute Auto 800 /uL (0-900); Monocytes Percent Auto 8.1 % (3-14); Neutrophils Absolute Auto 7900 /uL (1500-7000); Neutrophils Percent Auto 77.6 % (50-75); Platelet Count 202 X10^3/uL (150-400); Red Blood Cell Count 3.31 X10^6/uL (4.5-5.9); Red Cell Distribution Width 25.2 % (11.6-14.8); White Blood Cell Count 10.2 X10^3/uL (4.5-11.0)
[2024-04-22] MEDS: ONDANSETRON 4 MG/2 ML INJ IV (12:18)
[2024-04-22] MEDS: HYDROMORPHONE 0.5 MG INJ IV (12:18)
[2024-04-22 12:24] LABS: Alanine Aminotransferase 26 IU/L (<50); Albumin 3.6 g/dL (3.5-5.0); Albumin Globulin Ratio 1.2 (1.0-2.8); Alkaline Phosphatase 82 U/L (38-126); Aspartate Aminotransferase 31 IU/L (17-59); BUN Creatinine Ratio 21.6 (6-22); Bilirubin Total 0.3 mg/dL (0.2-1.3); Blood Urea Nitrogen 16 mg/dL (9-20); Calcium 8.9 mg/dL (8.4-10.2); Carbon Dioxide 22 mmol/L (22-32); Chloride 109 mmol/L (98-107); Estimated Glomerular Filt Rate > 60 mL/min (>60); Globulin 2.9 g/dL (1.7-4.1); Glucose 112 mg/dL (80-110); HEMOLYSIS < 15 (0-50); Lipase 157 U/L (23-300); Potassium 4.2 mmol/L (3.4-5.1); Sodium 140 mmol/L (137-145); Total Protein 6.5 g/dL (6.3-8.2)
[2024-04-22 12:35] LABS: Troponin I < 0.012 ng/mL (0.01-0.034)
[2024-04-22 12:43] LABS: Anisocytosis 1+
[2024-04-22 14:30] LABS: Appearance Urine UA CLEAR; Bilirubin Urine UA NEGATIVE (NEGATIVE); Color Urine UA YELLOW; Glucose Urine UA NEGATIVE (Negative); Ketones Urine UA NEGATIVE (NEGATIVE); Leukocyte Esterase Urine UA TRACE (NEGATIVE); Nitrite Urine UA NEGATIVE (Negative); Occult Blood Urine UA NEGATIVE (Negative); Protein Urine UA NEGATIVE (Negative); Urobilinogen Urine UA 0.2 E.U./dL (0.2)
[2024-04-22 14:51] LABS: Bacteria Urine Occasional (0-1); Culture Indicated Urine Specimen Cultured; RBC Urine None Seen (0-5/HPF); Squamous Epithelial Cell Urine None Seen (0-5/HPF); Urine Volume 10mL (spun); WBC Urine 10-30/HPF (0-5/HPF)
[2024-04-22] MEDS: CIPROFLOXACIN 250 MG TABLET 500 MG PO (19:23)
--- NOTE | 2024-04-22 19:50 | PC.NURSE ---
Pt having difficulty transferring from stretcher to wheel chair for discharge and unable to transfer from wheel chair into vehicle even with 2 person assist. places wooden blocks outside of vehicle for patient to use to step up intop vehicle which are not stable and slip around on wet ground. Pt hyperventilating and cursing while preparing to get into vehicle. and staff agree to request BLS transport home for patient safety. Pt brought back into ED at this time.
== END 2024-04-22 20:35 | disposition home or self-care (01) ==
PROVIDERS: Emergency Provider Emergency Medicine; Family Provider Student in an Organized Health Care Education/Training Program; PCP Internal Medicine
DX: R10.84 Generalized abdominal pain (principal); M60.9 Myositis, unspecified; K59.00 Constipation, unspecified; N30.00 Acute cystitis without hematuria; C17.0 Malignant neoplasm of duodenum; R09.01 Asphyxia; E66.01 Morbid (severe) obesity due to excess calories; Z68.39 Body mass index [BMI] 39.0-39.9, adult
CPT/HCPCS: 36415; 71045; 74177; 80053; 81001; 83605; 83690; 84484; 85025; 87040; 87077; 87086; 87186; 96374; 96375; 99284; J1171; J2405; Q9967

== ENCOUNTER 2024-04-28 04:34 | Emergency (ER) | payer MEDICARE, OTHER, SELFPAY ==
[2023-02-20 16:04] VITALS: BMI 39.9
[2024-04-28] VITALS (18 sets, daily range): BP systolic 90–150; BP diastolic 51–76; PULSE 68–111; RESP 14–27; TEMP 36.4; O2SAT 88–97; BMI 37.8
--- NOTE | 2024-04-28 | DI.RAD.S_ITS ---
PROCEDURE: XR CHEST 1V INDICATIONS: NG TUBE PLACEMENT TECHNIQUE: One view of the chest was acquired. COMPARISON: [facility], CR, XR CHEST 1V, 04/22/2024, 12:18. [facility], CR, XR CHEST 1V, 02/20/2024, 15:03. FINDINGS: Surgical changes and devices: Enteric tube projects over the gastric body Lungs and pleura: Low lung volumes. Mild opacity at the left lung base. Mediastinum: Heart size is within normal limits Bones and chest wall: Degenerative changes IMPRESSION: Enteric tube terminates in the gastric body. Mild opacity at the left lung base, possibly atelectasis versus air early airspace disease Dictated by: Pal Zuniga M.D. on 04/28/2024 at 9:12 Approved by: Pal Zuniga M.D. on 04/28/2024 at 9:12
--- NOTE | 2024-04-28 04:39 | ED_ITS ---
HPI - General Adult <Spike Renee DO - Last Filed: 04/28/24 17:54> General Chief complaint: Abdominal Pain Stated complaint: AND pain Time Seen by Provider: 04/28/24 04:35 Source: patient, family and EMS Mode of arrival: EMS History of Present Illness HPI narrative: Patient is an 79-year-old male. History of expressive aphasia secondary to a prior history of stroke. Was seen here in the emergency department less than 1 week ago for abdominal discomfort. I had a CT scan performed. No acute pathology. He has a known mass in the pancreas, stomach, duodenal region. He was diagnosed with constipation. Told to take MiraLax. Has had some bowel movements but they are still fairly small and firm. Overnight patient had what his describes as a lot of abdominal cramping and diaphoresis. He was a difficult time expressing his symptoms. He was able to say that these symptoms were different/worse. No urinary symptoms. He was recently diagnosed with the UTI. No chest pain or shortness of breath. Related Data Home Medications Medication Instructions Recorded Confirmed aspirin 81 mg tablet,delayed 81 mg PO DAILY 08/12/18 03/02/24 release carvedilol 12.5 mg tablet 12.5 mg PO BID 05/20/22 03/01/24 evolocumab 140 mg/mL subcutaneous 140 mg SUBCUT Q2W 11/18/23 03/02/24 pen injector (Danni Gomez) sertraline 50 mg tablet 25 mg PO DAILY 02/21/24 03/02/24 tramadol 50 mg tablet 50 mg PO Q6HR PRN Pain, Moderate 02/21/24 03/01/24 allopurinol 300 mg tablet 300 mg PO DAILY 03/01/24 03/01/24 ezetimibe 10 mg tablet 10 mg PO DAILY 03/01/24 03/01/24 losartan 100 mg tablet 50 mg PO DAILY 03/01/24 03/01/24 ticagrelor 90 mg tablet (Brilinta) 90 mg PO BID 03/01/24 03/01/24 Previous Rx's Medication Instructions Recorded ciprofloxacin HCl 500 mg tablet 500 mg PO BID #10 tabs 04/22/24 Allergies Allergy/AdvReac Type Severity Reaction Status Date / Time prednisone Allergy Severe Confusion Verified 04/22/24 11:58 celecoxib [From Celebrex] Allergy Intermediate Gastrointestinal Verified 04/22/24 11:58 Upset oxycodone [From Percocet] Allergy Intermediate Nausea Verified 04/22/24 11:58 [id number] Reductase AdvReac Severe Autoimmune Verified 04/22/24 11:58 Inhibitor myositis [[id number] Reductase Inhibitor] codeine AdvReac Mild Redness of Verified 04/22/24 11:58 Skin icosapent ethyl AdvReac Mild Nausea Verified 04/22/24 11:58 Review of Systems <Spike Renee DO - Last Filed: 04/28/24 17:54> Review of Systems Narrative: See HPI Patient History <Spike Renee DO - Last Filed: 04/28/24 17:54> Medical History Gastric cancer Left knee pain Iron deficiency anemia Reactive depression Cerebrovascular disease Gait instability Anemia Primary osteoarthritis involving multiple joints Gout Mixed hyperlipidemia Essential hypertension Chronic anticoagulation Paroxysmal atrial fibrillation Hx of non-ST elevation myocardial infarction (NSTEMI) Low back pain Kidney stones Coronary artery disease Surgical History Hx of cardiac catheterization H/O lithotripsy Hx of appendectomy Family History Mother Renal cancer Father War operations involving destruction of aircraft due to collision with other aircraft, personnel, sequela Social History details: (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), 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 household members: spouse Smoking Status: Former smoker alcohol intake: current Smoking Status: Former smoker alcohol intake frequency: holidays/special occasions only Substance Use Type: does not use Exam <Spike Renee DO - Last Filed: 04/28/24 17:54> Initial Vital Signs Initial Vital Signs: Vital Signs Temperature 97.6 F 04/28/24 04:30 Pulse Rate 75 04/28/24 04:30 Respiratory Rate 17 04/28/24 04:30 Blood Pressure 90/51 L 04/28/24 04:30 Pulse Oximetry 97 04/28/24 04:30 Oxygen Delivery Method Room Air 04/28/24 04:30 Const General: cooperative and No ill appearing HENME Head: normal to inspection and normocephalic Resp Effort & Inspection: normal respiratory effort Auscultation: clear to auscultation bilaterally Cardio Rate: regular rate Rhythm: regular rhythm GI Inspection: normal to inspection and non-distended Palpation: No rigid and tender Skin General: no rashes or lesions noted Neuro General: patient alert, patient awake and moves all extremities Extrem General: capillary refill normal <Inge Tobin MD - Last Filed: 04/28/24 16:20> Initial Vital Signs Initial Vital Signs: Vital Signs Temperature 97.6 F 04/28/24 04:30 Pulse Rate 75 04/28/24 04:30 Respiratory Rate 17 04/28/24 04:30 Blood Pressure 90/51 L 04/28/24 04:30 Pulse Oximetry 97 04/28/24 04:30 Oxygen Delivery Method Room Air 04/28/24 04:30 Course <Spike Renee DO - Last Filed: 04/28/24 17:54> Orders Ordered: Discontinued Medications Hydromorphone HCl (Hydromorphone 1 Mg Inj) 1 mg IV NOW ONE Stop: 04/28/24 04:40 Last Admin: 04/28/24 04:43 Dose: 1 mg Documented By: JARROD Hydromorphone HCl (Hydromorphone 1 Mg Inj) 0.5 mg IV NOW ONE Stop: 04/28/24 07:21 Last Admin: 04/28/24 07:37 Dose: 0.5 mg Documented By: LISY Hydromorphone HCl (Hydromorphone 0.5 Mg Inj) 0.5 mg IV Q15MIN PRN PRN Reason: Pain, Last Admin: 04/28/24 11:44 Dose: 0.5 mg Documented By: Admin: 04/28/24 10:39 Dose: 0.5 mg Documented By: LISY Sodium Chloride (Normal Saline 0.9%) 500 mls @ 500 mls/hr IV BOLUS ONE Stop: 04/28/24 05:42 Last Infusion: 04/28/24 06:00 Dose: Infused Documented By: Admin: 04/28/24 05:05 Dose: 500 mls/hr Documented By: JARROD Lidocaine HCl (Lidocaine Viscous 2% 15 Ml Solution) 15 ml PO NOW ONE Stop: 04/28/24 07:43 Last Admin: 04/28/24 08:05 Dose: 15 ml Documented By: LISY Ondansetron HCl (Ondansetron 4 Mg/2 Ml Inj) 4 mg IV NOW ONE Stop: 04/28/24 04:40 Last Admin: 04/28/24 04:45 Dose: 4 mg Documented By: JARROD Vital Signs Vital signs: Vital Signs - 8 hr 04/28/24 10:00 04/28/24 10:00 04/28/24 10:30 Pulse Rate 74 74 Respiratory Rate 18 21 Blood Pressure 122/63 Pulse Oximetry 88 L 93 04/28/24 10:30 04/28/24 11:00 04/28/24 11:00 Pulse Rate 68 Respiratory Rate 18 Blood Pressure 111/57 L 111/66 Pulse Oximetry 93 04/28/24 11:30 04/28/24 11:30 Pulse Rate 69 Respiratory Rate 19 Blood Pressure 130/68 Pulse Oximetry 93 <Inge Tobin MD - Last Filed: 04/28/24 16:20> Orders Ordered: Discontinued Medications Hydromorphone HCl (Hydromorphone 1 Mg Inj) 1 mg IV NOW ONE Stop: 04/28/24 04:40 Last Admin: 04/28/24 04:43 Dose: 1 mg Documented By: JARROD Hydromorphone HCl (Hydromorphone 1 Mg Inj) 0.5 mg IV NOW ONE Stop: 04/28/24 07:21 Last Admin: 04/28/24 07:37 Dose: 0.5 mg Documented By: LISY Hydromorphone HCl (Hydromorphone 0.5 Mg Inj) 0.5 mg IV Q15MIN PRN PRN Reason: Pain, Last Admin: 04/28/24 11:44 Dose: 0.5 mg Documented By: Admin: 04/28/24 10:39 Dose: 0.5 mg Documented By: LISY Sodium Chloride (Normal Saline 0.9%) 500 mls @ 500 mls/hr IV BOLUS ONE Stop: 04/28/24 05:42 Last Infusion: 04/28/24 06:00 Dose: Infused Documented By: Admin: 04/28/24 05:05 Dose: 500 mls/hr Documented By: JARROD Lidocaine HCl (Lidocaine Viscous 2% 15 Ml Solution) 15 ml PO NOW ONE Stop: 04/28/24 07:43 Last Admin: 04/28/24 08:05 Dose: 15 ml Documented By: LISY Ondansetron HCl (Ondansetron 4 Mg/2 Ml Inj) 4 mg IV NOW ONE Stop: 04/28/24 04:40 Last Admin: 04/28/24 04:45 Dose: 4 mg Documented By: JARROD Vital Signs Vital signs: Vital Signs - 8 hr 04/28/24 10:00 04/28/24 10:00 04/28/24 10:30 Pulse Rate 74 74 Respiratory Rate 18 21 Blood Pressure 122/63 Pulse Oximetry 88 L 93 04/28/24 10:30 04/28/24 11:00 04/28/24 11:00 Pulse Rate 68 Respiratory Rate 18 Blood Pressure 111/57 L 111/66 Pulse Oximetry 93 04/28/24 11:30 04/28/24 11:30 Pulse Rate 69 Respiratory Rate 19 Blood Pressure 130/68 Pulse Oximetry 93 Medical Decision Making <Spike Renee DO - Last Filed: 04/28/24 17:54> Medical Records Medical records reviewed: Yes I reviewed the patient's medical records. Lab Data Lab results reviewed: Yes I reviewed the patient's lab results. 04/28/24 04:40 04/28/24 04:40 Labs: Lab Results 04/28/24 04/28/24 Range/Units 04:40 06:56 WBC 16.9 H (4.5-11.0) X10^3/uL RBC 3.50 L (4.5-5.9) X10^6/uL Hgb 10.9 L (13.5-17.5) g/dL Hct 34.2 L (41-53) % MCV 97.8 D (80-100) fL MCH 31.1 (26-34) PG MCHC 31.8 (30-36) % RDW 26.0 H (11.6-14.8) % Plt Count 282 (150-400) X10^3/uL Neut % (Auto) 84.0 H (50-75) % Lymph % (Auto) 6.1 L (25-40) % Coryell % (Auto) 7.2 (3-14) % Eos % (Auto) 2.2 (2-4) % Baso % (Auto) 0.5 (0-2) % Neut # (Auto) 58863 H (8406-9458) /uL Lymph # (Auto) 1000 L (7433-6157) /uL Coryell # (Auto) 1200 H (0-900) /uL Eos # (Auto) 400 (0-450) /uL Baso # (Auto) 100 (0-100) /uL Platelet Estimate Adequate on smear RBC Morphology See below Polychromasia 1+ H Anisocytosis 2+ H Microcytosis 1+ H Macrocytosis 1+ H Sodium 140 (137-145) mmol/L Potassium 3.9 (3.4-5.1) mmol/L Chloride 107 (98-107) mmol/L Carbon Dioxide 20 L (22-32) mmol/L BUN 39 H (9-20) mg/dL Creatinine 1.20 (0.66-1.25) mg/dL Estimated GFR > 60 (>60) mL/min BUN/Creatinine Ratio 32.5 H (6-22) Glucose 98 (80-110) mg/dL Lactate 2.9 H 1.2 (0.7-2.1) mmol/L Calcium 9.5 (8.4-10.2) mg/dL Total Bilirubin 0.6 (0.2-1.3) mg/dL AST 26 (17-59) IU/L ALT 24 (<50) IU/L Alkaline Phosphatase 93 (38-126) U/L Total Protein 7.6 (6.3-8.2) g/dL Albumin 4.3 (3.5-5.0) g/dL Globulin 3.3 (1.7-4.1) g/dL Albumin/Globulin Ratio 1.3 (1.0-2.8) Lipase 195 (23-300) U/L Imaging Data Abdominal x-ray: Radiologist's Impression: Essentially normal bowel gas pattern Probable urolithiasis CT scan - abdomen/pelvis: Radiologist's Impression: Stomach is distended and fluid-filled with diffuse circumferential wall thickening of the 2nd portion of the duodenal possibly related to do in denied this. Can not exclude the possibility of an underlying mass causing a mechanical obstruction. MDM Narrative Medical decision making narrative: Patient has a known mass in the region of his proximal small bowel. He was scheduled to have a surgery performed in 24 hours for now for removal of this mass. Patient's states that this is not going to be a Whipple procedure. He does have a leukocytosis today and initially an elevated lactate. He reports improvement after pain medication. CT scan today shows distended and fluid- filled stomach. This does seem to be worse from his CT scan couple days ago. Plan will be is to talk with his surgeon at [facility] have them evaluate the CT scan. Care turned over to day provider to follow-up and disposition. <Inge Tobin MD - Last Filed: 04/28/24 16:20> Lab Data Labs: Lab Results 04/28/24 04/28/24 Range/Units 04:40 06:56 WBC 16.9 H (4.5-11.0) X10^3/uL RBC 3.50 L (4.5-5.9) X10^6/uL Hgb 10.9 L (13.5-17.5) g/dL Hct 34.2 L (41-53) % MCV 97.8 D (80-100) fL MCH 31.1 (26-34) PG MCHC 31.8 (30-36) % RDW 26.0 H (11.6-14.8) % Plt Count 282 (150-400) X10^3/uL Neut % (Auto) 84.0 H (50-75) % Lymph % (Auto) 6.1 L (25-40) % Coryell % (Auto) 7.2 (3-14) % Eos % (Auto) 2.2 (2-4) % Baso % (Auto) 0.5 (0-2) % Neut # (Auto) 65137 H (2486-8777) /uL Lymph # (Auto) 1000 L (3221-3224) /uL Coryell # (Auto) 1200 H (0-900) /uL Eos # (Auto) 400 (0-450) /uL Baso # (Auto) 100 (0-100) /uL Platelet Estimate Adequate on smear RBC Morphology See below Polychromasia 1+ H Anisocytosis 2+ H Microcytosis 1+ H Macrocytosis 1+ H Sodium 140 (137-145) mmol/L Potassium 3.9 (3.4-5.1) mmol/L Chloride 107 (98-107) mmol/L Carbon Dioxide 20 L (22-32) mmol/L BUN 39 H (9-20) mg/dL Creatinine 1.20 (0.66-1.25) mg/dL Estimated GFR > 60 (>60) mL/min BUN/Creatinine Ratio 32.5 H (6-22) Glucose 98 (80-110) mg/dL Lactate 2.9 H 1.2 (0.7-2.1) mmol/L Calcium 9.5 (8.4-10.2) mg/dL Total Bilirubin 0.6 (0.2-1.3) mg/dL AST 26 (17-59) IU/L ALT 24 (<50) IU/L Alkaline Phosphatase 93 (38-126) U/L Total Protein 7.6 (6.3-8.2) g/dL Albumin 4.3 (3.5-5.0) g/dL Globulin 3.3 (1.7-4.1) g/dL Albumin/Globulin Ratio 1.3 (1.0-2.8) Lipase 195 (23-300) U/L Imaging Data CT scan - abdomen/pelvis: Radiologist's Impression: Stomach is distended and fluid-filled with diffuse circumferential wall thickening of the 2nd portion of the duodenal possibly related to do in denied this. Can not exclude the possibility of an underlying mass causing a mechanical obstruction. PROCEDURE: CT ABDOMEN PELVIS W CON INDICATIONS: Generalized abdominal pain, has mass around the pancreas TECHNIQUE: After the administration of intravenous contrast, axial sections acquired from the lung bases to the pubic symphysis. Coronal and sagittal reformats were performed. For radiation dose reduction, the following was used: automated exposure control, adjustment of mA and/or kV according to patient size. COMPARISON: [facility], CT, CT ABDOMEN PELVIS W CON, 04/22/2024, 12:05. FINDINGS: Image quality: Diagnostic. Lower Chest: No significant findings. ABDOMEN: Liver: No solid mass. Gallbladder: No radiopaque gallstones or wall thickening. Biliary ducts: No biliary dilation. Pancreas: No ductal dilation. Spleen: Size is within normal limits. Adrenal Glands: No adrenal nodules. Kidneys and Ureters: Nonobstructing stones are seen in bilateral kidneys measures up to 7 mm in size in midpole left kidney and up to 7 mm in size in in size in midpole right kidney mid to lower pole left kidney. No hydronephrosis. No solid mass. No complex renal cystic lesion which requires follow up. Stomach and Bowel: Markedly distended stomach lumen is seen. Circumferential wall thickening involving 3rd portion of the duodenum measured approximately 3.2 cm in length. This is best seen on series 2, image 81. More distal small bowel loops are normal in caliber. No additional area of abnormal bowel wall thickening or mesenteric fat stranding. No abscess collection. Sigmoid diverticulosis without CT evidence of acute diverticulitis. Peritoneum: No abnormal intraperitoneal fluid. No free air. Ventral Wall: No significant ventral hernia. Abdominal Nodes: No retroperitoneal or mesenteric adenopathy by size criteria. Vessels: Aorta and inferior vena cava are normal in size. PELVIS: Pelvic Organs: Unremarkable. Bladder: No bladder wall thickening, accounting for underdistention. Pelvic Nodes: No enlarged lymph nodes. Miscellaneous: No inguinal hernias are seen. Bones: No aggressive osseous abnormality. Bilateral total hip arthroplasty is seen with significant beam hardening artifacts. IMPRESSION: 1. Circumferential wall thickening involving 3rd portion of duodenum measures approximately 3.2 cm in length on the current study compared to 2.7 cm on previous study. Markedly distended stomach lumen and 1st and 2nd portion of duodenum proximal to the area of wall thickening and narrowing of the lumen concerning for mechanical obstruction. Circumferential duodenal mass cannot be excluded. GI correlation and possible endoscopic evaluation is recommended. 2. No other area of abnormal bowel wall thickening or abnormal distension. No free fluid or free air. 3. Other findings are all unchanged from previous study. No discrepancies from preliminary reading. Dictated by: Librado Goodson M.D. on 04/28/2024 at 8:31 MDM Narrative Medical decision making narrative: Patient has a known mass in the region of his proximal small bowel. He was scheduled to have a surgery performed in 24 hours for now for removal of this mass. Patient's states that this is not going to be a Whipple procedure. He does have a leukocytosis today and initially an elevated lactate. He reports improvement after pain medication. CT scan today shows distended and fluid- filled stomach. This does seem to be worse from his CT scan couple days ago. Plan will be is to talk with his surgeon at [facility] have them evaluate the CT scan. Care turned over to day provider to follow-up and disposition. 11/ 7am Dr Tobin Care is assumed. Chart reviewed patient independently evaluated Explained to Mr. Wilkes that he is going to need an NG-tube. We will continue maintenance fluids, this point there is no indication for any antibiotics no signs of secondary infection I believe the leukocytosis is from the pain and demargination [address] Barcenas, surgeon who is planning to operate on the patient in the morning. She stresses the importance of the NG tube, we will have the patient transferred to [facility] today in anticipation of surgical intervention tomorrow. Findings reviewed with the patient and his both of whom were amenable to this plan Discharge Plan Departure Patient Disposition: [facility] Clinical Impression: SBO (small bowel obstruction), Cancer of duodenojejunal junction Prescriptions: No Action Repatha SureClick 140 mg/mL pen injector 140 mg SUBCUT Q2W Patient Comments: [NO ORIGINAL SIG] aspirin 81 mg Tablet,Delayed Release (Dr/Ec) 81 mg PO DAILY sertraline 50 mg Tablet 25 mg PO DAILY tramadol 50 mg tablet 50 mg PO Q6HR PRN (Reason: Pain, Moderate) ciprofloxacin HCl 500 mg tablet 500 mg PO BID Qty: 10 0RF allopurinol 300 mg tablet 300 mg PO DAILY Brilinta 90 mg tablet 90 mg PO BID losartan 100 mg tablet 50 mg PO DAILY ezetimibe 10 mg tablet 10 mg PO DAILY carvedilol 12.5 mg tablet 12.5 mg PO BID Referrals: Camacho Smith MD [Primary Care Provider] -
--- NOTE | 2024-04-28 04:40 | DI.RAD.S_ITS ---
PROCEDURE: XR ABDOMEN 1V INDICATIONS: Generalized abdominal pain TECHNIQUE: One view of the abdomen acquired. COMPARISON: [facility], CT, CT ABDOMEN PELVIS W CON, 04/28/2024, 5:46. FINDINGS: Surgical changes and devices: None. Bowel: Bowel gas pattern is nonobstructive. No gross pneumoperitoneum. Mild fecal stasis throughout the colon is seen. Soft tissues: Scattered bilateral renal calcifications are seen measures up to 6 mm in size in lower pole left kidney.. Visualized solid organ contours appear normal in size. Bones: No suspicious bony lesions. IMPRESSION: Suggestion of nonobstructing bilateral renal calculi. No evidence of bowel obstruction or gross free air. Mild constipation. Dictated by: Librado Goodson M.D. on 04/28/2024 at 8:30 Approved by: Librado Goodson M.D. on 04/28/2024 at 8:31
[2024-04-28] MEDS: HYDROMORPHONE 1 MG INJ IV (04:43)
[2024-04-28] MEDS: ONDANSETRON 4 MG/2 ML INJ IV (04:45)
[2024-04-28 04:51] LABS: Add Manual Diff / Slide Review NO; Basophils Absolute Auto 100 /uL (0-100); Basophils Percent Auto 0.5 % (0-2); Eosinophils Absolute Auto 400 /uL (0-450); Eosinophils Percent Auto 2.2 % (2-4); Hematocrit 34.2 % (41-53); Hemoglobin 10.9 g/dL (13.5-17.5); Lymphocytes Absolute Auto 1000 /uL (1100-4500); Lymphocytes Percent Auto 6.1 % (25-40); Mean Corpuscular HGB Conc 31.8 % (30-36); Mean Corpuscular Hemoglobin 31.1 PG (26-34); Mean Corpuscular Volume 97.8 fL (80-100); Monocytes Absolute Auto 1200 /uL (0-900); Monocytes Percent Auto 7.2 % (3-14); Neutrophils Absolute Auto 14200 /uL (1500-7000); Platelet Count 282 X10^3/uL (150-400); White Blood Cell Count 16.9 X10^3/uL (4.5-11.0)
[2024-04-28 05:02] LABS: Lactate (Lactic Acid) 2.9 mmol/L (0.7-2.1)
[2024-04-28 05:03] LABS: Alanine Aminotransferase 24 IU/L (<50); Albumin 4.3 g/dL (3.5-5.0); Albumin Globulin Ratio 1.3 (1.0-2.8); Alkaline Phosphatase 93 U/L (38-126); Aspartate Aminotransferase 26 IU/L (17-59); BUN Creatinine Ratio 32.5 (6-22); Bilirubin Total 0.6 mg/dL (0.2-1.3); Blood Urea Nitrogen 39 mg/dL (9-20); Calcium 9.5 mg/dL (8.4-10.2); Carbon Dioxide 20 mmol/L (22-32); Chloride 107 mmol/L (98-107); Estimated Glomerular Filt Rate > 60 mL/min (>60); Globulin 3.3 g/dL (1.7-4.1); Glucose 98 mg/dL (80-110); HEMOLYSIS < 15 (0-50); Lipase 195 U/L (23-300); Potassium 3.9 mmol/L (3.4-5.1); Sodium 140 mmol/L (137-145); Total Protein 7.6 g/dL (6.3-8.2)
[2024-04-28] MEDS: SODIUM CHLORIDE 0.9% 500 ML IV (05:05)
--- NOTE | 2024-04-28 05:35 | DI.CT.S_ITS ---
PROCEDURE: CT ABDOMEN PELVIS W CON INDICATIONS: Generalized abdominal pain, has mass around the pancreas TECHNIQUE: After the administration of intravenous contrast, axial sections acquired from the lung bases to the pubic symphysis. Coronal and sagittal reformats were performed. For radiation dose reduction, the following was used: automated exposure control, adjustment of mA and/or kV according to patient size. COMPARISON: [facility], CT, CT ABDOMEN PELVIS W CON, 04/22/2024, 12:05. FINDINGS: Image quality: Diagnostic. Lower Chest: No significant findings. ABDOMEN: Liver: No solid mass. Gallbladder: No radiopaque gallstones or wall thickening. Biliary ducts: No biliary dilation. Pancreas: No ductal dilation. Spleen: Size is within normal limits. Adrenal Glands: No adrenal nodules. Kidneys and Ureters: Nonobstructing stones are seen in bilateral kidneys measures up to 7 mm in size in midpole left kidney and up to 7 mm in size in in size in midpole right kidney mid to lower pole left kidney. No hydronephrosis. No solid mass. No complex renal cystic lesion which requires follow up. Stomach and Bowel: Markedly distended stomach lumen is seen. Circumferential wall thickening involving 3rd portion of the duodenum measured approximately 3.2 cm in length. This is best seen on series 2, image 81. More distal small bowel loops are normal in caliber. No additional area of abnormal bowel wall thickening or mesenteric fat stranding. No abscess collection. Sigmoid diverticulosis without CT evidence of acute diverticulitis. Peritoneum: No abnormal intraperitoneal fluid. No free air. Ventral Wall: No significant ventral hernia. Abdominal Nodes: No retroperitoneal or mesenteric adenopathy by size criteria. Vessels: Aorta and inferior vena cava are normal in size. PELVIS: Pelvic Organs: Unremarkable. Bladder: No bladder wall thickening, accounting for underdistention. Pelvic Nodes: No enlarged lymph nodes. Miscellaneous: No inguinal hernias are seen. Bones: No aggressive osseous abnormality. Bilateral total hip arthroplasty is seen with significant beam hardening artifacts. IMPRESSION: 1. Circumferential wall thickening involving 3rd portion of duodenum measures approximately 3.2 cm in length on the current study compared to 2.7 cm on previous study. Markedly distended stomach lumen and 1st and 2nd portion of duodenum proximal to the area of wall thickening and narrowing of the lumen concerning for mechanical obstruction. Circumferential duodenal mass cannot be excluded. GI correlation and possible endoscopic evaluation is recommended. 2. No other area of abnormal bowel wall thickening or abnormal distension. No free fluid or free air. 3. Other findings are all unchanged from previous study. No discrepancies from preliminary reading. Dictated by: Librado Goodson M.D. on 04/28/2024 at 8:31 Approved by: Librado Goodson M.D. on 04/28/2024 at 8:43
[2024-04-28 05:54] LABS: Anisocytosis 2+; Macrocytosis 1+; Microcytosis 1+; Platelet Estimate Adequate on smear; Polychromasia 1+
[2024-04-28 06:22] LABS: Reflexed Lactate in 2 Hours Y
--- NOTE | 2024-04-28 07:08 | PC.NURSE ---
Addendum entered by Piedad Seals CNA 04/28/24 11:50: 1103 patient bed assigned, [facility] transport set up to [facility] @1130. Patient packet complete with ED transfer report, Image reports, lab results, Kyra Celis Mary questioner, EMTALA, Face sheet. Packet was handed to ALS crew @1130 at patient [facility] fruit [facility]. Addendum entered by Piedad Seals CNA 04/28/24 08:39: Patient was accepted at @0800. Accepting provider is . Awaiting bed assignment. Addendum entered by Piedad Seals CNA 04/28/24 08:03: called back @0800 with to consult with Addendum entered by Piedad Seals CNA 04/28/24 07:47: Transfer center called @ 0745 and got updated information about patient for their shift change. Waiting for return call. Original Note: Transfer Request started with @0650. Images pushed and face sheet, mary worksheet, image reports and lab report faxed to transfer center @ [phone] @ [phone]
[2024-04-28 07:15] LABS: Lactate 2HR (Lactic Acid Rflx) 1.2 mmol/L (0.7-2.1)
[2024-04-28] MEDS: HYDROMORPHONE 1 MG INJ 0.5 MG IV (07:37)
[2024-04-28] MEDS: LIDOCAINE VISCOUS 2% 15 ML SOLUTION PO (08:05)
[2024-04-28] MEDS: HYDROMORPHONE 0.5 MG INJ IV ×2 (10:39→11:44)
== END 2024-04-28 12:08 | disposition short-term general hospital (02) ==
PROVIDERS: Emergency Medicine; Emergency Provider Emergency Medicine; Family Provider Student in an Organized Health Care Education/Training Program; PCP Internal Medicine
DX: K56.609 Unspecified intestinal obstruction, unspecified as to partial versus complete obstruction (principal); C17.8 Malignant neoplasm of overlapping sites of small intestine; D72.829 Elevated white blood cell count, unspecified; R79.89 Other specified abnormal findings of blood chemistry
CPT/HCPCS: 36415; 71045; 74018; 74177; 80053; 83605; 83690; 85025; 96361; 96374; 96375; 96376; 99285; J1171; J2405; Q9967

== ENCOUNTER 2024-08-13 12:15 | Emergency (ER) | payer MEDICARE, OTHER, SELFPAY ==
[2023-02-20 16:04] VITALS: BMI 39.9
[2024-08-13] VITALS (54 sets, daily range): BP systolic 82–182; BP diastolic 46–86; PULSE 71–123; RESP 15–51; TEMP 36.9–38.6; O2SAT 89–98; BMI 33.6
--- NOTE | 2024-08-13 12:21 | DI.RAD.S_ITS ---
PROCEDURE: XR CHEST 1V INDICATIONS: chest pain TECHNIQUE: One view of the chest was acquired. COMPARISON: [facility], CR, XR CHEST 1V, 04/28/2024, 9:00. [facility], CR, XR CHEST 1V, 04/22/2024, 12:18. FINDINGS: Surgical changes and devices: None. Lungs and pleura: Lungs are clear. No pleural effusions or pneumothorax. Mediastinum: Mediastinal contours appear normal. Heart size is normal. Bones and chest wall: No suspicious bony lesions. Overlying soft tissues appear unremarkable. IMPRESSION: No acute cardiopulmonary abnormality is seen. Dictated by: Jesse Martinez M.D. on 08/13/2024 at 13:31 Approved by: Jesse Martinez M.D. on 08/13/2024 at 13:31
--- NOTE | 2024-08-13 13:46 | PC.NURSE ---
patient has complicated history of stroke with expressive aphagia and NC with sent placement X2 in the past. The lasted NC on day this year. Today the is concerned that the patient is weak and has been having a hard time standing up and is less talkative than normal. His speech is incoherant but according to the this is normal from his stroke and he is receiving therapy for it. The weakness increase started in the last few days and the states he has been having frequent urination as well in the last few days.
[2024-08-13 14:12] LABS: Hematocrit 34.7 % (41-53); Hemoglobin 11.2 g/dL (13.5-17.5); Mean Corpuscular HGB Conc 32.4 % (30-36); Mean Corpuscular Hemoglobin 29.4 PG (26-34); Mean Corpuscular Volume 90.9 fL (80-100); Platelet Count 188 X10^3/uL (150-400); Red Blood Cell Count 3.82 X10^6/uL (4.5-5.9); White Blood Cell Count 19.8 X10^3/uL (4.5-11.0)
[2024-08-13 14:13] LABS: Add Manual Diff / Slide Review YES
[2024-08-13 14:21] LABS: INR 1.1 (0.9-1.3); Prothrombin Time 12.8 SECONDS (9.4-12.5)
[2024-08-13 14:22] LABS: Neutrophils Absolute Manual 17820 /uL (3000-5900); Total Cells Counted 100
[2024-08-13 14:23] LABS: Anisocytosis 1+
[2024-08-13 14:24] LABS: PTT Partial Thromboplastin Tim 25 SECONDS (25.1-36.5)
[2024-08-13 14:27] LABS: Alanine Aminotransferase 24 IU/L (<50); Albumin 3.9 g/dL (3.5-5.0); Alkaline Phosphatase 86 U/L (38-126); Aspartate Aminotransferase 33 IU/L (17-59); Bilirubin Total 0.6 mg/dL (0.2-1.3); Blood Urea Nitrogen 44 mg/dL (9-20); Calcium 8.9 mg/dL (8.4-10.2); Carbon Dioxide 23 mmol/L (22-32); Chloride 108 mmol/L (98-107); Creatine Kinase 107 U/L (55-170); Estimated Glomerular Filt Rate > 60 mL/min (>60); Globulin 4.1 g/dL (1.7-4.1); Glucose 108 mg/dL (80-110); HEMOLYSIS < 15 (0-50); Lipase 45 U/L (23-300); Magnesium 1.7 mg/dL (1.6-2.3); Potassium 4.3 mmol/L (3.4-5.1); Sodium 140 mmol/L (137-145)
--- NOTE | 2024-08-13 14:32 | ED.WEAKNESS ---
HPI - Weakness <Doe Sands MD - Last Filed: 08/21/24 02:50> General Chief complaint: Weakness Stated complaint: Generalized WKN Time Seen by Provider: 08/13/24 13:02 Source: patient and EMS Mode of arrival: EMS History of Present Illness HPI Narrative: Patient is a male with a history of duodenal mass removal, myositis, stroke, and heart attack who presents with generalized weakness and difficulty standing. He was recently discharged from a rehab facility on July 29 after over two months of rehabilitation post-surgery. The patient had been doing well with physical therapy until yesterday when he became increasingly weak and unable to stand or walk with his walker. He has a history of multiple falls, the most recent being in March. There are no recent fevers or chills, and his blood pressure has been stable. The patient has baseline aphasia and has been experiencing some right-sided abdominal pain for a few days, which was evaluated by a visiting nurse and thought to be gas. He has a palpable mass in the right lower quadrant. Past Medical History: Duodenal mass removal, myositis, stroke, heart attack, subdural hematomas, multiple falls, history of UTI and sepsis. Medications: Eliquis (discontinued), currently not specified. Allergies: None mentioned. Surgical History: Duodenal mass removal, Watchman procedure. Related Data Home Medications Medication Instructions Recorded Confirmed aspirin 81 mg tablet,delayed 81 mg PO DAILY 08/12/18 03/02/24 release carvedilol 12.5 mg tablet 12.5 mg PO BID 05/20/22 03/01/24 evolocumab 140 mg/mL subcutaneous 140 mg SUBCUT Q2W 11/18/23 03/02/24 pen injector (Danni Gomez) sertraline 50 mg tablet 25 mg PO DAILY 02/21/24 03/02/24 allopurinol 300 mg tablet 300 mg PO DAILY 03/01/24 03/01/24 ezetimibe 10 mg tablet 10 mg PO DAILY 03/01/24 03/01/24 acetaminophen 500 mg tablet 500 mg PO BID 08/03/24 08/03/24 clopidogrel 75 mg tablet 75 mg PO DAILY 08/03/24 08/03/24 iron bisglycinate chelate 28 mg PO DAILY 08/03/24 08/03/24 losartan 50 mg tablet 50 mg PO BID 08/03/24 08/03/24 mirtazapine 7.5 mg tablet 15 mg PO BEDTIME 08/03/24 08/03/24 pantoprazole 40 mg tablet,delayed 40 mg PO DAILY 08/03/24 08/03/24 release allopurinol 300 mg tablet 300 mg PO DAILY 08/13/24 08/13/24 methocarbamol 750 mg PO PRN PRN for muscle spasms 08/13/24 08/13/24 Allergies Allergy/AdvReac Type Severity Reaction Status Date / Time prednisone Allergy Severe Confusion Verified 04/22/24 11:58 celecoxib [From Celebrex] Allergy Intermediate Gastrointestinal Verified 04/22/24 11:58 Upset oxycodone [From Percocet] Allergy Intermediate Nausea Verified 04/22/24 11:58 [id number] Reductase AdvReac Severe Autoimmune Verified 04/22/24 11:58 Inhibitor myositis [[id number] Reductase Inhibitor] codeine AdvReac Mild Redness of Verified 04/22/24 11:58 Skin icosapent ethyl AdvReac Mild Nausea Verified 04/22/24 11:58 Review of Systems <Doe Sands MD - Last Filed: 08/21/24 02:50> Review of Systems ROS Unobtainable: All systems reviewed & are unremarkable except as noted in HPI and below Patient History <Doe Sands MD - Last Filed: 08/21/24 02:50> Medical History Anemia Cerebrovascular disease Chronic anticoagulation Coronary artery disease Essential hypertension Gait instability Gout History of GI tract cancer Hx of non-ST elevation myocardial infarction (NSTEMI) Iron deficiency anemia Kidney stones Low back pain Mixed hyperlipidemia Paroxysmal atrial fibrillation Primary osteoarthritis involving multiple joints Reactive depression Surgical History H/O lithotripsy Hx of appendectomy Hx of cardiac catheterization S/P cholecystectomy S/P small bowel resection Family History Mother Renal cancer Father War operations involving destruction of aircraft due to collision with other aircraft, personnel, sequela Social History details: (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 Skin: Good turgor, no rash, unusual bruising or prominent lesions. Head: Normocephalic, atraumatic. HEENT: Conjunctiva clear, EOM intact, PERRL, Mucous membranes moist. Neck: Supple, normal ROM. Heart: Regular rate and rhythm, no murmur or gallop or rubs. Lungs: Clear to auscultation. No rales, rhonchi, or wheezes. Abdomen: Tenderness in the right lower quadrant, palpable mass in the area with no overlying skin changes. Soft, bowel sounds normal. No mass or hernia. Back: Spine normal without deformity or tenderness, no CVA tenderness. Extremities: No deformities, edema. Peripheral pulses intact. Neurologic: CN 2-12 normal. Normal sensation and motor exam. Baseline aphasia. Psychiatric: Oriented X3. Normal mood and affect. Initial Vital Signs Initial Vital Signs: Vital Signs Temperature 98.5 F 08/13/24 12:22 Pulse Rate 78 08/13/24 12:22 Respiratory Rate 16 08/13/24 12:22 Blood Pressure 117/67 08/13/24 12:22 Pulse Oximetry 94 08/13/24 12:22 Oxygen Delivery Method Room Air 08/13/24 12:22 <Cipriano Light MD - Last Filed: 08/14/24 04:39> Initial Vital Signs Initial Vital Signs: Vital Signs Temperature 98.5 F 08/13/24 12:22 Pulse Rate 78 08/13/24 12:22 Respiratory Rate 16 08/13/24 12:22 Blood Pressure 117/67 08/13/24 12:22 Pulse Oximetry 94 08/13/24 12:22 Oxygen Delivery Method Room Air 08/13/24 12:22 Course <Doe Sands MD - Last Filed: 08/21/24 02:50> Orders Ordered: Discontinued Medications Acetaminophen (Acetaminophen 325 Mg Tablet) 975 mg PO NOW ONE Stop: 08/13/24 19:09 Last Admin: 08/13/24 19:15 Dose: 975 mg Documented By: Sodium Chloride (Normal Saline 0.9%) 1,000 mls @ 1,000 mls/hr IV BOLUS ONE Stop: 08/13/24 16:50 Last Infusion: 08/13/24 17:04 Dose: Infused Documented By: Admin: 08/13/24 16:06 Dose: 1,000 mls/hr Documented By: RAVEN Ceftriaxone Sodium 2,000 mg/ (Sodium Chloride) 100 mls @ 200 mls/hr IV NOW ONE Stop: 08/13/24 15:53 Last Infusion: 08/13/24 17:03 Dose: Infused Documented By: Admin: 08/13/24 16:00 Dose: 200 mls/hr Documented By: RAVEN Piperacillin Sod/Tazobactam (Sod 4.5 gm/ Sodium Chloride) 100 mls @ 200 mls/hr IV NOW ONE Stop: 08/13/24 22:52 Last Infusion: 08/14/24 00:38 Dose: Infused Documented By: Admin: 08/13/24 23:01 Dose: 200 mls/hr Documented By: CHEIKH Sodium Chloride (Normal Saline 0.9%) 1,000 mls @ 1,000 mls/hr IV BOLUS ONE Stop: 08/13/24 23:52 Last Infusion: 08/13/24 23:48 Dose: Infused Documented By: Admin: 08/13/24 23:00 Dose: 1,000 mls/hr Documented By: CHEIKH Piperacillin Sod/Tazobactam (Sod 3.375 gm/ Sodium Chloride) 100 mls @ 25 mls/hr IV Q8H RAFIQ NOREPINEPHRINE BITARTRATE/D5W (Levophed) 4 mg in 250 mls @ 45.75 mls/hr IV TITRATE RAFIQ; Protocol Last Titration: 08/14/24 02:45 Dose: 0 mcg/kg/min, 0 mls/hr Documented By: Titration: 08/13/24 23:55 Dose: 0.075 mcg/kg/min, 34.313 mls/hr Documented By: Admin: 08/13/24 23:36 Dose: 0.1 mcg/kg/min, 45.75 mls/hr Documented By: CHEIKH Sodium Chloride (Normal Saline 0.9%) 1,000 mls @ 250 mls/hr IV CONT RAFIQ Last Infusion: 08/14/24 02:46 Dose: 0 mls/hr Documented By: Admin: 08/13/24 23:48 Dose: 250 mls/hr Documented By: CHEIKH Lidocaine HCl (Lidocaine 2% (Glydo) 6 Ml Gel) 6 ml TOP NOW ONE Stop: 08/13/24 15:56 Last Admin: 08/13/24 16:06 Dose: 6 ml Documented By: RAVEN Ondansetron HCl (Ondansetron 4 Mg/2 Ml Inj) 4 mg IV NOW PRN PRN Reason: Nausea And Vomiting Ondansetron HCl (Ondansetron 4 Mg Odt) 4 mg SL NOW PRN PRN Reason: Nausea And Vomiting Vital Signs Vital signs: Vital Signs - 8 hr 08/13/24 20:45 08/13/24 20:45 08/13/24 20:59 Temperature 99.7 F H Pulse Rate 99 H Respiratory Rate 39 H Blood Pressure 139/63 Pulse Oximetry 96 Oxygen Delivery Method Fraction of Inspired Oxygen 08/13/24 21:00 08/13/24 21:00 08/13/24 21:15 Temperature Pulse Rate 97 H Respiratory Rate 40 H Blood Pressure 136/62 133/62 Pulse Oximetry 96 Oxygen Delivery Method Fraction of Inspired Oxygen 08/13/24 21:15 08/13/24 21:30 08/13/24 21:30 Temperature Pulse Rate 99 H 95 H Respiratory Rate 44 H 38 H Blood Pressure 120/59 L Pulse Oximetry 96 97 Oxygen Delivery Method Fraction of Inspired Oxygen 08/13/24 21:45 08/13/24 21:45 08/13/24 22:00 Temperature Pulse Rate 95 H 92 H Respiratory Rate 39 H 40 H Blood Pressure 118/55 L Pulse Oximetry 96 96 Oxygen Delivery Method Fraction of Inspired Oxygen 08/13/24 22:00 08/13/24 22:15 08/13/24 22:15 Temperature Pulse Rate 90 Respiratory Rate 36 H Blood Pressure 116/59 L 114/58 L Pulse Oximetry 95 Oxygen Delivery Method Fraction of Inspired Oxygen 08/13/24 22:30 08/13/24 22:30 08/13/24 22:45 Temperature Pulse Rate 87 83 Respiratory Rate 36 H 32 H Blood Pressure 111/53 L Pulse Oximetry 95 96 Oxygen Delivery Method Fraction of Inspired Oxygen 08/13/24 22:45 08/13/24 22:45 08/13/24 22:52 Temperature Pulse Rate 82 Respiratory Rate 34 H Blood Pressure 104/55 L 104/55 L Pulse Oximetry 96 Oxygen Delivery Method Fraction of Inspired Oxygen 08/13/24 22:52 08/13/24 22:52 08/13/24 22:58 Temperature Pulse Rate Respiratory Rate Blood Pressure 95/54 L 95/54 L 88/51 L Pulse Oximetry Oxygen Delivery Method Fraction of Inspired Oxygen 08/13/24 22:58 08/13/24 22:59 08/13/24 23:00 Temperature Pulse Rate 81 80 Respiratory Rate 33 H 33 H Blood Pressure 89/53 L Pulse Oximetry 95 93 Oxygen Delivery Method Fraction of Inspired Oxygen 08/13/24 23:00 08/13/24 23:01 08/13/24 23:01 Temperature 99.1 F Pulse Rate 80 80 Respiratory Rate 34 H 33 H Blood Pressure 86/47 L Pulse Oximetry 97 97 Oxygen Delivery Method Fraction of Inspired Oxygen 08/13/24 23:15 08/13/24 23:15 08/13/24 23:30 Temperature Pulse Rate 79 Respiratory Rate 32 H Blood Pressure 90/54 L 82/46 L Pulse Oximetry 97 Oxygen Delivery Method Fraction of Inspired Oxygen 08/13/24 23:30 08/13/24 23:31 08/13/24 23:31 Temperature Pulse Rate 75 76 Respiratory Rate 30 H 31 H Blood Pressure 83/47 L Pulse Oximetry 93 93 Oxygen Delivery Method Fraction of Inspired Oxygen 08/13/24 23:40 08/13/24 23:40 08/13/24 23:45 Temperature Pulse Rate 71 75 Respiratory Rate 30 H 31 H Blood Pressure 103/57 L Pulse Oximetry 97 98 Oxygen Delivery Method Fraction of Inspired Oxygen 08/13/24 23:50 08/13/24 23:50 08/14/24 00:00 Temperature Pulse Rate 74 Respiratory Rate 31 H Blood Pressure 118/63 114/63 Pulse Oximetry 93 Oxygen Delivery Method Fraction of Inspired Oxygen 08/14/24 00:00 08/14/24 00:10 08/14/24 00:10 Temperature Pulse Rate 79 77 Respiratory Rate 31 H 28 H Blood Pressure 119/67 Pulse Oximetry 98 98 Oxygen Delivery Method Fraction of Inspired Oxygen 08/14/24 00:15 08/14/24 00:20 08/14/24 00:20 Temperature Pulse Rate 79 78 Respiratory Rate 28 H 28 H Blood Pressure 126/63 Pulse Oximetry 99 97 Oxygen Delivery Method Fraction of Inspired Oxygen 08/14/24 00:30 08/14/24 00:30 08/14/24 00:31 Temperature Pulse Rate 77 Respiratory Rate 26 H Blood Pressure 121/62 121/62 Pulse Oximetry 97 97 Oxygen Delivery Method BiPAP Fraction of Inspired Oxygen 35 08/14/24 00:40 08/14/24 00:40 08/14/24 00:45 Temperature Pulse Rate 75 75 Respiratory Rate 27 H 26 H Blood Pressure 113/59 L Pulse Oximetry 97 97 Oxygen Delivery Method Fraction of Inspired Oxygen 08/14/24 00:50 08/14/24 00:50 08/14/24 01:00 Temperature Pulse Rate 74 Respiratory Rate 26 H Blood Pressure 119/58 L 121/56 L Pulse Oximetry 97 Oxygen Delivery Method Fraction of Inspired Oxygen 08/14/24 01:00 08/14/24 01:10 08/14/24 01:10 Temperature Pulse Rate 72 71 Respiratory Rate 28 H 25 H Blood Pressure 128/61 Pulse Oximetry 97 97 Oxygen Delivery Method Fraction of Inspired Oxygen 08/14/24 01:15 08/14/24 01:20 08/14/24 01:20 Temperature Pulse Rate 73 72 Respiratory Rate 26 H 25 H Blood Pressure 103/53 L Pulse Oximetry 98 96 Oxygen Delivery Method Fraction of Inspired Oxygen 08/14/24 01:30 08/14/24 01:30 08/14/24 01:40 Temperature Pulse Rate 67 Respiratory Rate 22 Blood Pressure 102/57 L 117/56 L Pulse Oximetry 96 Oxygen Delivery Method Fraction of Inspired Oxygen 08/14/24 01:40 08/14/24 01:45 08/14/24 01:50 Temperature Pulse Rate 67 66 64 Respiratory Rate 23 24 23 Blood Pressure Pulse Oximetry 97 97 97 Oxygen Delivery Method Fraction of Inspired Oxygen 08/14/24 01:50 08/14/24 02:00 08/14/24 02:00 Temperature Pulse Rate 64 Respiratory Rate 23 Blood Pressure 116/57 L 114/57 L Pulse Oximetry 97 Oxygen Delivery Method Fraction of Inspired Oxygen 08/14/24 02:10 08/14/24 02:10 08/14/24 02:15 Temperature Pulse Rate 63 63 Respiratory Rate 22 22 Blood Pressure 117/58 L Pulse Oximetry 97 97 Oxygen Delivery Method Fraction of Inspired Oxygen 08/14/24 02:20 08/14/24 02:20 08/14/24 02:30 Temperature Pulse Rate 62 Respiratory Rate 23 Blood Pressure 117/58 L 120/59 L Pulse Oximetry 98 Oxygen Delivery Method Fraction of Inspired Oxygen 08/14/24 02:30 Temperature Pulse Rate 61 Respiratory Rate 23 Blood Pressure Pulse Oximetry 98 Oxygen Delivery Method Fraction of Inspired Oxygen <Cipriano Light MD - Last Filed: 08/14/24 04:39> Orders Ordered: Discontinued Medications Acetaminophen (Acetaminophen 325 Mg Tablet) 975 mg PO NOW ONE Stop: 08/13/24 19:09 Last Admin: 08/13/24 19:15 Dose: 975 mg Documented By: Sodium Chloride (Normal Saline 0.9%) 1,000 mls @ 1,000 mls/hr IV BOLUS ONE Stop: 08/13/24 16:50 Last Infusion: 08/13/24 17:04 Dose: Infused Documented By: Admin: 08/13/24 16:06 Dose: 1,000 mls/hr Documented By: RAVEN Ceftriaxone Sodium 2,000 mg/ (Sodium Chloride) 100 mls @ 200 mls/hr IV NOW ONE Stop: 08/13/24 15:53 Last Infusion: 08/13/24 17:03 Dose: Infused Documented By: Admin: 08/13/24 16:00 Dose: 200 mls/hr Documented By: RAVEN Piperacillin Sod/Tazobactam (Sod 4.5 gm/ Sodium Chloride) 100 mls @ 200 mls/hr IV NOW ONE Stop: 08/13/24 22:52 Last Infusion: 08/14/24 00:38 Dose: Infused Documented By: Admin: 08/13/24 23:01 Dose: 200 mls/hr Documented By: CHEIKH Sodium Chloride (Normal Saline 0.9%) 1,000 mls @ 1,000 mls/hr IV BOLUS ONE Stop: 08/13/24 23:52 Last Infusion: 08/13/24 23:48 Dose: Infused Documented By: Admin: 08/13/24 23:00 Dose: 1,000 mls/hr Documented By: CHEIKH Piperacillin Sod/Tazobactam (Sod 3.375 gm/ Sodium Chloride) 100 mls @ 25 mls/hr IV Q8H RAFIQ NOREPINEPHRINE BITARTRATE/D5W (Levophed) 4 mg in 250 mls @ 45.75 mls/hr IV TITRATE RAFIQ; Protocol Last Titration: 08/14/24 02:45 Dose: 0 mcg/kg/min, 0 mls/hr Documented By: Titration: 08/13/24 23:55 Dose: 0.075 mcg/kg/min, 34.313 mls/hr Documented By: Admin: 08/13/24 23:36 Dose: 0.1 mcg/kg/min, 45.75 mls/hr Documented By: CHEIKH Sodium Chloride (Normal Saline 0.9%) 1,000 mls @ 250 mls/hr IV CONT RAFIQ Last Infusion: 08/14/24 02:46 Dose: 0 mls/hr Documented By: Admin: 08/13/24 23:48 Dose: 250 mls/hr Documented By: CHEIKH Lidocaine HCl (Lidocaine 2% (Glydo) 6 Ml Gel) 6 ml TOP NOW ONE Stop: 08/13/24 15:56 Last Admin: 08/13/24 16:06 Dose: 6 ml Documented By: RAVEN Ondansetron HCl (Ondansetron 4 Mg/2 Ml Inj) 4 mg IV NOW PRN PRN Reason: Nausea And Vomiting Ondansetron HCl (Ondansetron 4 Mg Odt) 4 mg SL NOW PRN PRN Reason: Nausea And Vomiting Vital Signs Vital signs: Vital Signs - 8 hr 08/13/24 20:45 08/13/24 20:45 08/13/24 20:59 Temperature 99.7 F H Pulse Rate 99 H Respiratory Rate 39 H Blood Pressure 139/63 Pulse Oximetry 96 Oxygen Delivery Method Fraction of Inspired Oxygen 08/13/24 21:00 08/13/24 21:00 08/13/24 21:15 Temperature Pulse Rate 97 H Respiratory Rate 40 H Blood Pressure 136/62 133/62 Pulse Oximetry 96 Oxygen Delivery Method Fraction of Inspired Oxygen 08/13/24 21:15 08/13/24 21:30 08/13/24 21:30 Temperature Pulse Rate 99 H 95 H Respiratory Rate 44 H 38 H Blood Pressure 120/59 L Pulse Oximetry 96 97 Oxygen Delivery Method Fraction of Inspired Oxygen 08/13/24 21:45 08/13/24 21:45 08/13/24 22:00 Temperature Pulse Rate 95 H 92 H Respiratory Rate 39 H 40 H Blood Pressure 118/55 L Pulse Oximetry 96 96 Oxygen Delivery Method Fraction of Inspired Oxygen 08/13/24 22:00 08/13/24 22:15 08/13/24 22:15 Temperature Pulse Rate 90 Respiratory Rate 36 H Blood Pressure 116/59 L 114/58 L Pulse Oximetry 95 Oxygen Delivery Method Fraction of Inspired Oxygen 08/13/24 22:30 08/13/24 22:30 08/13/24 22:45 Temperature Pulse Rate 87 83 Respiratory Rate 36 H 32 H Blood Pressure 111/53 L Pulse Oximetry 95 96 Oxygen Delivery Method Fraction of Inspired Oxygen 08/13/24 22:45 08/13/24 22:45 08/13/24 22:52 Temperature Pulse Rate 82 Respiratory Rate 34 H Blood Pressure 104/55 L 104/55 L Pulse Oximetry 96 Oxygen Delivery Method Fraction of Inspired Oxygen 08/13/24 22:52 08/13/24 22:52 08/13/24 22:58 Temperature Pulse Rate Respiratory Rate Blood Pressure 95/54 L 95/54 L 88/51 L Pulse Oximetry Oxygen Delivery Method Fraction of Inspired Oxygen 08/13/24 22:58 08/13/24 22:59 08/13/24 23:00 Temperature Pulse Rate 81 80 Respiratory Rate 33 H 33 H Blood Pressure 89/53 L Pulse Oximetry 95 93 Oxygen Delivery Method Fraction of Inspired Oxygen 08/13/24 23:00 08/13/24 23:01 08/13/24 23:01 Temperature 99.1 F Pulse Rate 80 80 Respiratory Rate 34 H 33 H Blood Pressure 86/47 L Pulse Oximetry 97 97 Oxygen Delivery Method Fraction of Inspired Oxygen 08/13/24 23:15 08/13/24 23:15 08/13/24 23:30 Temperature Pulse Rate 79 Respiratory Rate 32 H Blood Pressure 90/54 L 82/46 L Pulse Oximetry 97 Oxygen Delivery Method Fraction of Inspired Oxygen 08/13/24 23:30 08/13/24 23:31 08/13/24 23:31 Temperature Pulse Rate 75 76 Respiratory Rate 30 H 31 H Blood Pressure 83/47 L Pulse Oximetry 93 93 Oxygen Delivery Method Fraction of Inspired Oxygen 08/13/24 23:40 08/13/24 23:40 08/13/24 23:45 Temperature Pulse Rate 71 75 Respiratory Rate 30 H 31 H Blood Pressure 103/57 L Pulse Oximetry 97 98 Oxygen Delivery Method Fraction of Inspired Oxygen 08/13/24 23:50 08/13/24 23:50 08/14/24 00:00 Temperature Pulse Rate 74 Respiratory Rate 31 H Blood Pressure 118/63 114/63 Pulse Oximetry 93 Oxygen Delivery Method Fraction of Inspired Oxygen 08/14/24 00:00 08/14/24 00:10 08/14/24 00:10 Temperature Pulse Rate 79 77 Respiratory Rate 31 H 28 H Blood Pressure 119/67 Pulse Oximetry 98 98 Oxygen Delivery Method Fraction of Inspired Oxygen 08/14/24 00:15 08/14/24 00:20 08/14/24 00:20 Temperature Pulse Rate 79 78 Respiratory Rate 28 H 28 H Blood Pressure 126/63 Pulse Oximetry 99 97 Oxygen Delivery Method Fraction of Inspired Oxygen 08/14/24 00:30 08/14/24 00:30 08/14/24 00:31 Temperature Pulse Rate 77 Respiratory Rate 26 H Blood Pressure 121/62 121/62 Pulse Oximetry 97 97 Oxygen Delivery Method BiPAP Fraction of Inspired Oxygen 35 08/14/24 00:40 08/14/24 00:40 08/14/24 00:45 Temperature Pulse Rate 75 75 Respiratory Rate 27 H 26 H Blood Pressure 113/59 L Pulse Oximetry 97 97 Oxygen Delivery Method Fraction of Inspired Oxygen 08/14/24 00:50 08/14/24 00:50 08/14/24 01:00 Temperature Pulse Rate 74 Respiratory Rate 26 H Blood Pressure 119/58 L 121/56 L Pulse Oximetry 97 Oxygen Delivery Method Fraction of Inspired Oxygen 08/14/24 01:00 08/14/24 01:10 08/14/24 01:10 Temperature Pulse Rate 72 71 Respiratory Rate 28 H 25 H Blood Pressure 128/61 Pulse Oximetry 97 97 Oxygen Delivery Method Fraction of Inspired Oxygen 08/14/24 01:15 08/14/24 01:20 08/14/24 01:20 Temperature Pulse Rate 73 72 Respiratory Rate 26 H 25 H Blood Pressure 103/53 L Pulse Oximetry 98 96 Oxygen Delivery Method Fraction of Inspired Oxygen 08/14/24 01:30 08/14/24 01:30 08/14/24 01:40 Temperature Pulse Rate 67 Respiratory Rate 22 Blood Pressure 102/57 L 117/56 L Pulse Oximetry 96 Oxygen Delivery Method Fraction of Inspired Oxygen 08/14/24 01:40 08/14/24 01:45 08/14/24 01:50 Temperature Pulse Rate 67 66 64 Respiratory Rate 23 24 23 Blood Pressure Pulse Oximetry 97 97 97 Oxygen Delivery Method Fraction of Inspired Oxygen 08/14/24 01:50 08/14/24 02:00 08/14/24 02:00 Temperature Pulse Rate 64 Respiratory Rate 23 Blood Pressure 116/57 L 114/57 L Pulse Oximetry 97 Oxygen Delivery Method Fraction of Inspired Oxygen 08/14/24 02:10 08/14/24 02:10 08/14/24 02:15 Temperature Pulse Rate 63 63 Respiratory Rate 22 22 Blood Pressure 117/58 L Pulse Oximetry 97 97 Oxygen Delivery Method Fraction of Inspired Oxygen 08/14/24 02:20 08/14/24 02:20 08/14/24 02:30 Temperature Pulse Rate 62 Respiratory Rate 23 Blood Pressure 117/58 L 120/59 L Pulse Oximetry 98 Oxygen Delivery Method Fraction of Inspired Oxygen 08/14/24 02:30 Temperature Pulse Rate 61 Respiratory Rate 23 Blood Pressure Pulse Oximetry 98 Oxygen Delivery Method Fraction of Inspired Oxygen MDM - Weakness <Doe Sands MD - Last Filed: 08/21/24 02:50> Lab Data 08/13/24 13:50 08/13/24 13:50 Labs: Lab Results 08/13/24 08/13/24 08/13/24 Range/Units 13:50 16:19 16:50 WBC 19.8 H (4.5-11.0) X10^3/uL RBC 3.82 L (4.5-5.9) X10^6/uL Hgb 11.2 L (13.5-17.5) g/dL Hct 34.7 L (41-53) % MCV 90.9 (80-100) fL MCH 29.4 (26-34) PG MCHC 32.4 (30-36) % RDW 22.0 H (11.6-14.8) % Plt Count 188 (150-400) X10^3/uL Neut % (Auto) Not Reportable Lymph % (Auto) Not Reportable Ceiba % (Auto) Not Reportable Eos % (Auto) Not Reportable Baso % (Auto) Not Reportable Lymph # (Auto) Not Reportable [place] # (Auto) Not Reportable Baso # (Auto) Not Reportable Total Counted 100 Seg Neutrophils % 87.0 H (38-70) % Band Neutrophils % 3.0 (3-7) % Lymphocytes % (Manual) 5.0 L (25-45) % Monocytes % (Manual) 5.0 (2-11) % Neutrophils # (Manual) 92955 H (2581-1369) /uL RBC Morphology Not Reportable Anisocytosis 1+ H PT 12.8 H (9.4-12.5) SECONDS INR 1.1 (0.9-1.3) APTT 25 L (25.1-36.5) SECONDS ABG Sample Site ABG pH (7.35-7.45) ABG pCO2 (35-45) mmHg ABG pO2 (80-100) mmHg ABG HCO3 (23-27) mmol/L ABG Total CO2 (23-27) mmol/L ABG O2 Saturation (95-100) % ABG Base Excess (-2-3) mmol/L Kade Test Respiration Rate O2 Delivery Device FiO2 % % Sodium 140 (137-145) mmol/L Potassium 4.3 (3.4-5.1) mmol/L Chloride 108 H (98-107) mmol/L Carbon Dioxide 23 (22-32) mmol/L BUN 44 H (9-20) mg/dL Creatinine 1.19 (0.66-1.25) mg/dL Estimated GFR > 60 (>60) mL/min BUN/Creatinine Ratio 37.0 H (6-22) Glucose 108 (80-110) mg/dL Lactate 2.1 (0.7-2.1) mmol/L Calcium 8.9 (8.4-10.2) mg/dL Magnesium 1.7 (1.6-2.3) mg/dL Total Bilirubin 0.6 (0.2-1.3) mg/dL AST 33 (17-59) IU/L ALT 24 (<50) IU/L Alkaline Phosphatase 86 (38-126) U/L Total Creatine Kinase 107 (55-170) U/L Troponin I < 0.012 (0.01-0.034) ng/mL NT-Pro-B Natriuret Pep 1500 H (<450) pg/mL Total Protein 8.0 (6.3-8.2) g/dL Albumin 3.9 (3.5-5.0) g/dL Globulin 4.1 (1.7-4.1) g/dL Albumin/Globulin Ratio 1.0 (1.0-2.8) Lipase 45 (23-300) U/L Procalcitonin 0.312 (<0.5) ng/mL Urine RBC 5-10/hpf H (0-5/HPF) Urine WBC 1-5/hpf (0-5/HPF) Ur Squamous Epith Cells 0-1 /hpf (0-5/HPF) Urine Bacteria Occasional (0-1) (None) Ur Culture Indicated? Cult not indicated Vol Urine Centrifuged 10ml (spun) 08/13/24 08/13/24 08/14/24 Range/Units 18:47 20:28 01:22 WBC (4.5-11.0) X10^3/uL RBC (4.5-5.9) X10^6/uL Hgb (13.5-17.5) g/dL Hct (41-53) % MCV (80-100) fL MCH (26-34) PG MCHC (30-36) % RDW (11.6-14.8) % Plt Count (150-400) X10^3/uL Neut % (Auto) Lymph % (Auto) [place] % (Auto) Eos % (Auto) Baso % (Auto) Lymph # (Auto) [place] # (Auto) Baso # (Auto) Total Counted Seg Neutrophils % (38-70) % Band Neutrophils % (3-7) % Lymphocytes % (Manual) (25-45) % Monocytes % (Manual) (2-11) % Neutrophils # (Manual) (9811-6754) /uL RBC Morphology Anisocytosis PT (9.4-12.5) SECONDS INR (0.9-1.3) APTT (25.1-36.5) SECONDS ABG Sample Site Right radial Right radial ABG pH 7.53 H 7.36 (7.35-7.45) ABG pCO2 29.7 L 34.9 L (35-45) mmHg ABG pO2 74 L 90 (80-100) mmHg ABG HCO3 25 20 L (23-27) mmol/L ABG Total CO2 24 19 L (23-27) mmol/L ABG O2 Saturation 97 97 (95-100) % ABG Base Excess 2.6 -5.2 L (-2-3) mmol/L Kade Test Positive Positive Respiration Rate 24 O2 Delivery Device oximask Bipap FiO2 % 35.0 % % Sodium (137-145) mmol/L Potassium (3.4-5.1) mmol/L Chloride (98-107) mmol/L Carbon Dioxide (22-32) mmol/L BUN (9-20) mg/dL Creatinine (0.66-1.25) mg/dL Estimated GFR (>60) mL/min BUN/Creatinine Ratio (6-22) Glucose (80-110) mg/dL Lactate 1.2 (0.7-2.1) mmol/L Calcium (8.4-10.2) mg/dL Magnesium (1.6-2.3) mg/dL Total Bilirubin (0.2-1.3) mg/dL AST (17-59) IU/L ALT (<50) IU/L Alkaline Phosphatase (38-126) U/L Total Creatine Kinase (55-170) U/L Troponin I (0.01-0.034) ng/mL NT-Pro-B Natriuret Pep (<450) pg/mL Total Protein (6.3-8.2) g/dL Albumin (3.5-5.0) g/dL Globulin (1.7-4.1) g/dL Albumin/Globulin Ratio (1.0-2.8) Lipase (23-300) U/L Procalcitonin (<0.5) ng/mL Urine RBC (0-5/HPF) Urine WBC (0-5/HPF) Ur Squamous Epith Cells (0-5/HPF) Urine Bacteria (None) Ur Culture Indicated? Vol Urine Centrifuged Urine Dip Bedside Urine Glucose Negative Bedside Urine Bilirubin - Negative Bedside Urine Ketone - Negative Urine Specific [place] 1.015 Bedside Urine Occult Blood +++ Bedside Urine pH 6.0 Bedside Urine Protein +/- 15 Bedside Urine Urobilinogen - Negative Bedside Urine Nitrite - Negative Bedside Urine Leukocytes - Negative Esterase Patient's lab work concerning for white blood cell count of 19, platelet count 188, MDM Narrative Medical decision making narrative: 79-year-old male with fairly complicated past medical history including recent abdominal surgery for duodenal mass, stroke, brain bleed, MA in the past. INITIAL EVALUATION AND PLAN: - Obtain urine sample for analysis. - Perform X-ray. - Conduct lab work to identify potential causes of increased weakness. - Evaluate the right lower quadrant mass with imaging if necessary. - Monitor for signs of infection or other complications. - Differential diagnosis includes but is not limited to: infection, electrolyte imbalance, medication side effects, progression of underlying conditions, abdominal mass, malignancy, pancreatitis, urine infection, pneumonia -patient found to have elevated white count and elevated heart rate while in the emergency department but no active fever, given 1 L of fluids judicious fluids not full 20 cc/kg given patient's cardiac history. Patient given dose of ceftriaxone for coverage of potential obstructive urinary stone on the left side which was identified on imaging. Patient is urinalysis is not clearly infected however given no other obvious source of inflammation/symptoms believe that it is reasonable for him to be transferred to a facility with Urology for potential stent placement. Patient also found to have fat necrosis in the right side of the abdomen that have lower suspicion is the cause of his symptoms. -case discussed with urology who is unable to take the patient as there is no beds but agrees patient needs consideration of stent 08/13/24, Kuldeep Metz. Signout from Dr Sands. <Cipriano Light MD - Last Filed: 08/14/24 04:39> Lab Data Labs: Lab Results 08/13/24 08/13/24 08/13/24 Range/Units 13:50 16:19 16:50 WBC 19.8 H (4.5-11.0) X10^3/uL RBC 3.82 L (4.5-5.9) X10^6/uL Hgb 11.2 L (13.5-17.5) g/dL Hct 34.7 L (41-53) % MCV 90.9 (80-100) fL MCH 29.4 (26-34) PG MCHC 32.4 (30-36) % RDW 22.0 H (11.6-14.8) % Plt Count 188 (150-400) X10^3/uL Neut % (Auto) Not Reportable Lymph % (Auto) Not Reportable [place] % (Auto) Not Reportable Eos % (Auto) Not Reportable Baso % (Auto) Not Reportable Lymph # (Auto) Not Reportable [place] # (Auto) Not Reportable Baso # (Auto) Not Reportable Total Counted 100 Seg Neutrophils % 87.0 H (38-70) % Band Neutrophils % 3.0 (3-7) % Lymphocytes % (Manual) 5.0 L (25-45) % Monocytes % (Manual) 5.0 (2-11) % Neutrophils # (Manual) 11548 H (2196-4603) /uL RBC Morphology Not Reportable Anisocytosis 1+ H PT 12.8 H (9.4-12.5) SECONDS INR 1.1 (0.9-1.3) APTT 25 L (25.1-36.5) SECONDS ABG Sample Site ABG pH (7.35-7.45) ABG pCO2 (35-45) mmHg ABG pO2 (80-100) mmHg ABG HCO3 (23-27) mmol/L ABG Total CO2 (23-27) mmol/L ABG O2 Saturation (95-100) % ABG Base Excess (-2-3) mmol/L Kade Test Respiration Rate O2 Delivery Device FiO2 % % Sodium 140 (137-145) mmol/L Potassium 4.3 (3.4-5.1) mmol/L Chloride 108 H (98-107) mmol/L Carbon Dioxide 23 (22-32) mmol/L BUN 44 H (9-20) mg/dL Creatinine 1.19 (0.66-1.25) mg/dL Estimated GFR > 60 (>60) mL/min BUN/Creatinine Ratio 37.0 H (6-22) Glucose 108 (80-110) mg/dL Lactate 2.1 (0.7-2.1) mmol/L Calcium 8.9 (8.4-10.2) mg/dL Magnesium 1.7 (1.6-2.3) mg/dL Total Bilirubin 0.6 (0.2-1.3) mg/dL AST 33 (17-59) IU/L ALT 24 (<50) IU/L Alkaline Phosphatase 86 (38-126) U/L Total Creatine Kinase 107 (55-170) U/L Troponin I < 0.012 (0.01-0.034) ng/mL NT-Pro-B Natriuret Pep 1500 H (<450) pg/mL Total Protein 8.0 (6.3-8.2) g/dL Albumin 3.9 (3.5-5.0) g/dL Globulin 4.1 (1.7-4.1) g/dL Albumin/Globulin Ratio 1.0 (1.0-2.8) Lipase 45 (23-300) U/L Procalcitonin 0.312 (<0.5) ng/mL Urine RBC 5-10/hpf H (0-5/HPF) Urine WBC 1-5/hpf (0-5/HPF) Ur Squamous Epith Cells 0-1 /hpf (0-5/HPF) Urine Bacteria Occasional (0-1) (None) Ur Culture Indicated? Cult not indicated Vol Urine Centrifuged 10ml (spun) 08/13/24 08/13/24 08/14/24 Range/Units 18:47 20:28 01:22 WBC (4.5-11.0) X10^3/uL RBC (4.5-5.9) X10^6/uL Hgb (13.5-17.5) g/dL Hct (41-53) % MCV (80-100) fL MCH (26-34) PG MCHC (30-36) % RDW (11.6-14.8) % Plt Count (150-400) X10^3/uL Neut % (Auto) Lymph % (Auto) [place] % (Auto) Eos % (Auto) Baso % (Auto) Lymph # (Auto) [place] # (Auto) Baso # (Auto) Total Counted Seg Neutrophils % (38-70) % Band Neutrophils % (3-7) % Lymphocytes % (Manual) (25-45) % Monocytes % (Manual) (2-11) % Neutrophils # (Manual) (9150-6503) /uL RBC Morphology Anisocytosis PT (9.4-12.5) SECONDS INR (0.9-1.3) APTT (25.1-36.5) SECONDS ABG Sample Site Right radial Right radial ABG pH 7.53 H 7.36 (7.35-7.45) ABG pCO2 29.7 L 34.9 L (35-45) mmHg ABG pO2 74 L 90 (80-100) mmHg ABG HCO3 25 20 L (23-27) mmol/L ABG Total CO2 24 19 L (23-27) mmol/L ABG O2 Saturation 97 97 (95-100) % ABG Base Excess 2.6 -5.2 L (-2-3) mmol/L Kade Test Positive Positive Respiration Rate 24 O2 Delivery Device oximask Bipap FiO2 % 35.0 % % Sodium (137-145) mmol/L Potassium (3.4-5.1) mmol/L Chloride (98-107) mmol/L Carbon Dioxide (22-32) mmol/L BUN (9-20) mg/dL Creatinine (0.66-1.25) mg/dL Estimated GFR (>60) mL/min BUN/Creatinine Ratio (6-22) Glucose (80-110) mg/dL Lactate 1.2 (0.7-2.1) mmol/L Calcium (8.4-10.2) mg/dL Magnesium (1.6-2.3) mg/dL Total Bilirubin (0.2-1.3) mg/dL AST (17-59) IU/L ALT (<50) IU/L Alkaline Phosphatase (38-126) U/L Total Creatine Kinase (55-170) U/L Troponin I (0.01-0.034) ng/mL NT-Pro-B Natriuret Pep (<450) pg/mL Total Protein (6.3-8.2) g/dL Albumin (3.5-5.0) g/dL Globulin (1.7-4.1) g/dL Albumin/Globulin Ratio (1.0-2.8) Lipase (23-300) U/L Procalcitonin (<0.5) ng/mL Urine RBC (0-5/HPF) Urine WBC (0-5/HPF) Ur Squamous Epith Cells (0-5/HPF) Urine Bacteria (None) Ur Culture Indicated? Vol Urine Centrifuged Urine Dip Bedside Urine Glucose Negative Bedside Urine Bilirubin - Negative Bedside Urine Ketone - Negative Urine Specific [place] 1.015 Bedside Urine Occult Blood +++ Bedside Urine pH 6.0 Bedside Urine Protein +/- 15 Bedside Urine Urobilinogen - Negative Bedside Urine Nitrite - Negative Bedside Urine Leukocytes - Negative Esterase Imaging Data CT scan - abdomen/pelvis: Radiologist Impression: Close Abdomen/Pelvis CT (Signed) Jesse Martinez - 08/13/24 Chest X-Ray (Signed) Jesse Martinez - 08/13/24 Launch?[address] [address] [address] Scan Report Signed Patient: Hadley Wilkes MR#: [id number] : 1945 Acct:[id number] Age/Sex: 79 / M Date of Service: 08/13/24 Loc: ED Accession Number: [id number] Procedure: CT abdomen pelvis w con Ordering Provider: Doe Sands MD PROCEDURE: CT ABDOMEN PELVIS W CON INDICATIONS: Worsening weakness, new mass and tenderness in the rLQ TECHNIQUE: After the administration of intravenous contrast, axial sections acquired from the lung bases to the pubic symphysis. Coronal and sagittal reformats were performed. For radiation dose reduction, the following was used: automated exposure control, adjustment of mA and/or kV according to patient size. COMPARISON: [facility], CT, CT ABDOMEN PELVIS W CON, 04/28/2024, 5:46. FINDINGS: Image quality: Suboptimal due to motion artifact. Lower Chest: Bibasilar atelectasis. ABDOMEN: Liver: Motion degraded. No large mass. Gallbladder: Absent. Biliary ducts: No biliary dilation. Pancreas: Absent. Spleen: Size is within normal limits. Calcified granuloma. Adrenal Glands: No adrenal nodules. Kidneys and Ureters: Obstructing 7 millimeter stone in proximal left ureter, resulting in moderate hydronephrosis. Large burden of bilateral nonobstructing nephrolithiasis, largest measuring 5 millimeters on the right and 7 millimeters on the left. Stomach and Bowel: Normal colonic caliber, without significant wall thickening. Peritoneum: Fat containing mass in the right lower quadrant with peripheral fat stranding measuring 6.5 x 3.2 centimeter (series 2, image 93). Ventral Wall: No significant ventral hernia. Abdominal Nodes: No retroperitoneal or mesenteric adenopathy by size criteria. Vessels: Aorta and inferior vena cava are normal in size. PELVIS: Pelvic Organs: Unremarkable. Bladder: No bladder wall thickening, accounting for underdistention. Pelvic Nodes: No enlarged lymph nodes. Miscellaneous: Fat within the inguinal canals. Bones: No aggressive osseous abnormality. Bilateral hip arthroplasties. IMPRESSION: Obstructing 7 millimeter stone in the proximal left ureter, resulting in moderate hydronephrosis. Large burden of nonobstructing bilateral nephrolithiasis. Fat containing mass with peripheral inflammatory changes in the right lower quadrant . 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 Other chronic findings as above. Dictated by: Jesse Martinez M.D. on 08/13/2024 at 15:35 Approved by: Jesse Martinez M.D. on 08/13/2024 at 15:45 Chest x-ray: Radiologist Impression: [address] [address] XRay Report Signed Patient: Hadley Wilkes MR#: [id number] : 1945 Acct:[id number] Age/Sex: 79 / M Date of Service: 08/13/24 Loc: ED Accession Number: [id number] Procedure: XR chest 1V Ordering Provider: Doe Sands MD PROCEDURE: XR CHEST 1V INDICATIONS: chest pain TECHNIQUE: One view of the chest was acquired. COMPARISON: [facility], CR, XR CHEST 1V, 04/28/2024, 9:00. [facility], CR, XR CHEST 1V, 04/22/2024, 12:18. FINDINGS: Surgical changes and devices: None. Lungs and pleura: Lungs are clear. No pleural effusions or pneumothorax. Mediastinum: Mediastinal contours appear normal. Heart size is normal. Bones and chest wall: No suspicious bony lesions. Overlying soft tissues appear unremarkable. IMPRESSION: No acute cardiopulmonary abnormality is seen. Dictated by: Jesse Martinez M.D. on 08/13/2024 at 13:31 Approved by: Jesse Martinez M.D. on 08/13/2024 at 13:31 [facility] Narrative Medical decision making narrative: 79-year-old male with fairly complicated past medical history including recent abdominal surgery for duodenal mass, stroke, brain bleed, MA in the past. INITIAL EVALUATION AND PLAN: - Obtain urine sample for analysis. - Perform X-ray. - Conduct lab work to identify potential causes of increased weakness. - Evaluate the right lower quadrant mass with imaging if necessary. - Monitor for signs of infection or other complications. - Differential diagnosis includes but is not limited to: infection, electrolyte imbalance, medication side effects, progression of underlying conditions, abdominal mass, malignancy, pancreatitis, urine infection, pneumonia -patient found to have elevated white count and elevated heart rate while in the emergency department but no active fever, given 1 L of fluids judicious fluids not full 20 cc/kg given patient's cardiac history. Patient given dose of ceftriaxone for coverage of potential obstructive urinary stone on the left side which was identified on imaging. Patient is urinalysis is not clearly infected however given no other obvious source of inflammation/symptoms believe that it is reasonable for him to be transferred to a facility with Urology for potential stent placement. Patient also found to have fat necrosis in the right side of the abdomen that have lower suspicion is the cause of his symptoms. -case discussed with urology who is unable to take the patient as there is no beds but agrees patient needs consideration of stent 08/13/24, Kuldeep Metz. Signout from Dr Sands. 79-year-old male with history of stroke, prior brain hemorrhage, prior MA, recent abdominal surgery for to a needle mass on 07/29/2024, has generalized weakness. Afebrile, heart rate 120s noted however, increased white blood cell count 15155, lactic acid 2.1, urinalysis negative, chest x-ray negative. CT shows left-sided 7 mm ureteral stone with hydronephrosis, no perinephric stranding. IV fluids given. Case was discussed with [facility] urology who was concerned along with prior provider about need for ureteral stenting, might be cause of leukocytosis. IV ceftriaxone antibiotic given. No beds [facility]. Alternate bed placement search in progress. Assumed interim care. Repeat lactate 1.2 improved. Bed search still in progress. CT abdomen and pelvis. Impressions: ?Obstructing 7 mm stone in the proximal left ureter resulting in moderate hydronephrosis. Large burden of nonobstructing bilateral nephrolithiasis. Fat containing mass with peripheral inflammatory changes in the right lower quadrant. 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 Other chronic findings..? See radiology report Patient with increased oxygen requirement, chest x-ray negative, facemask, systolic blood pressure 110, increased BNP noted. We will give maintenance fluids. Broaden antibiotic coverage, ceftriaxone given prior, we will start IV Zosyn 4.5 g now and then q.6 hour 3.375 g. Still awaiting Urology capable transfer, many places have been called, no beds available. Discussed with [facility] manager community Dr King, patient on low-dose norepinephrine with systolic blood pressure 118, uses BiPAP at night in his sleeping, we will initiate BiPAP, he suggests peripheral pressor for transfer now, can accept patient in transfer, agrees with broader spectrum coverage antibiotics. BiPAP settings /6, 35% FiO2. ABG reassuring. No area ambulates services available at this time. EMS ALS ground transport to [facility]. Critical Care Time <Cipriano Light MD - Last Filed: 08/14/24 04:39> Critical Care Time Critical Care Time: Yes Total Critical Care Time: 35 Attestation: The high probability of a clinically significant, sudden or life threatening deterioration of the [cardiopulmonary, genitourinary, urologic, abdominopelvic system(s) required my full and direct attention, intervention and personal management. The aggregate critical care time was [35] minutes. This time is in addition to time spent performing reported procedures but includes the following: [x] Data Review and interpretation [x] Patient assessment and monitoring of vital signs [x] Documentation [x] Medication orders and management Discharge Plan Departure Patient Disposition: [facility] Clinical Impression: Left ureteral stone, Bilateral nephrolithiasis, History of abdominal surgery, History of obstructive sleep apnea Prescriptions: No Action mirtazapine 7.5 mg tablet 15 mg PO BEDTIME clopidogrel 75 mg tablet 75 mg PO DAILY losartan 50 mg tablet 50 mg PO BID pantoprazole 40 mg tablet,delayed release (DR/EC) 40 mg PO DAILY iron bisglycinate chelate 28 mg iron capsule 28 mg PO DAILY acetaminophen 500 mg tablet 500 mg PO BID Repatha SureClick 140 mg/mL pen injector 140 mg SUBCUT Q2W Patient Comments: [NO ORIGINAL SIG] aspirin 81 mg Tablet,Delayed Release (Dr/Ec) 81 mg PO DAILY sertraline 50 mg Tablet 25 mg PO DAILY allopurinol 300 mg tablet 300 mg PO DAILY methocarbamol 750 mg PO PRN PRN (Reason: for muscle spasms) allopurinol 300 mg tablet 300 mg PO DAILY ezetimibe 10 mg tablet 10 mg PO DAILY carvedilol 12.5 mg tablet 12.5 mg PO BID Referrals: Camacho Smith MD [Primary Care Provider] -
[2024-08-13 14:38] LABS: NT-proBNP (BNP-Adult 18+) 1500 pg/mL (<450); Troponin I < 0.012 ng/mL (0.01-0.034)
[2024-08-13] MEDS: cefTRIAXone 2,000 MG in SODIUM CHLORIDE 0.9% 100 ML 200 MG IV (16:00)
[2024-08-13] MEDS: LIDOCAINE 2% (GLYDO) 6 ML GEL TOP (16:06)
[2024-08-13] MEDS: SODIUM CHLORIDE 0.9% 1,000 ML 1000 ML IV ×2 (16:06→23:00)
[2024-08-13 17:06] LABS: Lactate (Lactic Acid) 2.1 mmol/L (0.7-2.1)
[2024-08-13 17:12] LABS: Bacteria Urine Occasional (0-1); RBC Urine 5-10/HPF (0-5/HPF); Squamous Epithelial Cell Urine 0-1 /HPF (0-5/HPF); Urine Volume 10mL (spun); WBC Urine 1-5/HPF (0-5/HPF)
[2024-08-13 17:13] LABS: Culture Indicated Urine Cult Not Indicated
[2024-08-13 17:24] LABS: Procalcitonin 0.312 ng/mL (<0.5)
[2024-08-13 18:29] LABS: Reflexed Lactate in 2 Hours Y
[2024-08-13 19:04] LABS: Lactate 2HR (Lactic Acid Rflx) 1.2 mmol/L (0.7-2.1)
--- NOTE | 2024-08-13 19:05 | PC.NURSE ---
Temp 101.[address] Light notified.
[2024-08-13] MEDS: ACETAMINOPHEN 325 MG TABLET 975 MG PO (19:15)
--- NOTE | 2024-08-13 20:00 | PC.NURSE ---
Pt's respiratory rate increased to 40 per minute and O2 Sats dropping from 92% to 88-89%, placed on 5L per NC. Sats improved to 90%. RT called and in room. Placed on O2 mask.
--- NOTE | 2024-08-13 20:17 | PC.NURSE ---
Dr Light notified. aware of decline in mentation and respiratory status. RT in room with pt to draw blood gas.
[2024-08-13 20:31] LABS: Allen Test for ABG Passed? Positive; Base Excess ABG 2.6 mmol/L (-2-3); Blood Gas Collection Site Right Radial; Delivery System oximask; HCO3 ABG 25 mmol/L (23-27); Oxygen Saturation ABG 97 % (95-100); PCO2 ABG 29.7 mmHg (35-45); PO2 ABG 74 mmHg (80-100); TCO2 ABG 24 mmol/L (23-27); pH ABG 7.53 (7.35-7.45)
--- NOTE | 2024-08-13 21:30 | PC.NURSE ---
report received from DARIUS Varma
[2024-08-13] MEDS: PIPERACILLIN/TAZO 4.5 GM in SODIUM CHLORIDE 0.9% 100 ML IV (23:01)
--- NOTE | 2024-08-13 23:12 | PC.NURSE ---
pt's BP becoming hypotensive, Dr Light informed and pt moved to Rm 1 for closer monitoring, new orders noted,
[2024-08-13] MEDS: NOREPINEPHRINE BITARTRATE/D5W 4 MG/250 ML PLAST..BAG 45.75 MG IV (23:36)
[2024-08-13] MEDS: SODIUM CHLORIDE 0.9% 1,000 ML 250 ML IV (23:48)
--- NOTE | 2024-08-13 23:50 | PC.NURSE ---
called pt's to inform her of pt being transferred to [facility] to ICU
[2024-08-14] VITALS (22 sets, daily range): BP systolic 102–128; BP diastolic 53–67; PULSE 61–79; RESP 10–31; TEMP 31; O2SAT 96–99
--- NOTE | 2024-08-14 00:34 | RT ---
Placed on BIPAP using Large mask and initial settings of 12 / 6 35%. Tolerating well. ABG to follow
--- NOTE | 2024-08-14 01:10 | EKG_ITS ---
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
[2024-08-14 01:25] LABS: Allen Test for ABG Passed? Positive; Base Excess ABG -5.2 mmol/L (-2-3); Blood Gas Collection Site Right Radial; Delivery System BiPAP; HCO3 ABG 20 mmol/L (23-27); Oxygen Saturation ABG 97 % (95-100); PCO2 ABG 34.9 mmHg (35-45); PO2 ABG 90 mmHg (80-100); Respiratory Rate 24; TCO2 ABG 19 mmol/L (23-27); pH ABG 7.36 (7.35-7.45)
--- NOTE | 2024-08-14 02:46 | PC.NURSE ---
IVf continued upon transfer
== END 2024-08-14 03:02 | disposition short-term general hospital (02) ==
PROVIDERS: Emergency Medicine; Emergency Provider Emergency Medicine; Family Provider Student in an Organized Health Care Education/Training Program; PCP Internal Medicine
DX: N20.1 Calculus of ureter (principal); N20.0 Calculus of kidney; Z86.69 Personal history of other diseases of the nervous system and sense organs; Z98.890 Other specified postprocedural states; R07.9 Chest pain, unspecified; I25.2 Old myocardial infarction; Z86.73 Personal history of transient ischemic attack (TIA), and cerebral infarction without residual deficits
CPT/HCPCS: 36415; 36600; 71045; 74177; 80053; 81003; 81015; 82550; 82805; 83605; 83690; 83735; 83880; 84145; 84484; 85007; 85025; 85610; 85730; 87040; 87077; 87186; 93005; 93010; 94660; 96365; 96366; 96367; 96368; 99284; 99291; J0696; J2543; Q9967

== ENCOUNTER 2024-11-13 18:26 | Emergency (ER) | payer MEDICARE, OTHER, SELFPAY ==
[2023-02-20 16:04] VITALS: BMI 39.9
[2024-08-14 00:31] VITALS: PULSE 76; RESP 27; O2SAT 97
[2024-11-13] VITALS (14 sets, daily range): BP systolic 142–204; BP diastolic 85–122; PULSE 68–82; RESP 17–25; TEMP 36.8; O2SAT 91–98; BMI 34.2
--- NOTE | 2024-11-13 19:05 | EKG_ITS ---
[facility] [address] [place] [address] Test Date: 2024-11-13 Pat Name: Hadley Wilkes Department: [facility] Room: Gender: Male [employer] Monitor: FLAVIA : 1945 Requested By: Order Number: [id number] Reading MD: Kade Cook Measurements Intervals [place] Rate: 69 P: 23 NH: 242 QRS: -37 QRSD: 74 T: 20 QT: 354 QTc: 379 Interpretive Statements Sinus rhythm with 1st degree AV block Left axis deviation Low voltage QRS Inferior infarct , age undetermined Electronically Signed On 11-15-2024 7:52:08 PDT by Kade Cook
--- NOTE | 2024-11-13 19:18 | ED_ITS ---
HPI - Weakness General Chief complaint: Weakness Stated complaint: N/V Time Seen by Provider: 11/13/24 18:33 History of Present Illness HPI Narrative: 79-year-old history of CVA status post expressive aphasia, CAD x3 stents, history of duodenal mass removal, has been admitted at [facility] multiple times and been to rehab multiple times in between after being discharged most recently October 26 presents via EMS today with fever, nonproductive cough, epigastric pain, nonbilious nonbloody projectile vomit. He last ate a sandwich today and did have bowel movement earlier that was normal and no diarrhea or constipation or uti symtpoms. He denies chest pain,shortness of breath, dyspnea on exertion, and leg swelling. Other than what is stated 14 point review of system is negative. Related Data Home Medications Medication Instructions Recorded Confirmed carvedilol 12.5 mg tablet 12.5 mg PO BID 05/20/22 11/01/24 evolocumab 140 mg/mL subcutaneous 140 mg SUBCUT Q2W cholesterol 11/18/23 11/01/24 pen injector (Danni Gomez) lowering clopidogrel 75 mg tablet 75 mg PO DAILY blood thinner 08/03/24 11/01/24 iron bisglycinate chelate 28 mg PO DAILY anemia 08/03/24 11/01/24 losartan 50 mg tablet 50 mg PO BID blood pressure 08/03/24 11/01/24 mirtazapine 7.5 mg tablet 15 mg PO BEDTIME 08/03/24 11/01/24 allopurinol 300 mg tablet 300 mg PO DAILY Gout 08/13/24 11/01/24 acetaminophen 500 mg tablet 1,000 mg PO BID pain/fever 11/01/24 11/01/24 aspirin 81 mg tablet,delayed 81 mg PO DAILY cardiac health 11/01/24 11/01/24 release ezetimibe 10 mg tablet 10 mg PO .PM Cholesterol 11/01/24 11/01/24 guaifenesin 600 mg tablet, 1,200 mg PO Q12H PRN cough 11/01/24 11/01/24 extended release 12 hr hydroxyzine HCl 25 mg tablet 25 mg PO TID PRN anxiety 11/01/24 11/01/24 sertraline 50 mg tablet 25 mg PO DAILY depression 11/01/24 11/01/24 tamsulosin 0.4 mg capsule 0.4 mg PO DAILY 11/01/24 11/01/24 vit A 300 mcg-C 200 mg-E 27 1 tab PO DAILY 11/01/24 11/01/24 mg-lutein 2 mg and minerals tablet (Vision Formula (with lutein)) vit C 226 mg-vit E 90 mg-copper cap PO 11/01/24 11/01/24 0.8 mg-zinc oxide-lutein 5 mg capsule (PreserVision Lutein) Previous Rx's Medication Instructions Recorded pantoprazole 40 mg tablet,delayed 40 mg PO DAILY #100 tabs 11/01/24 release amoxicillin 875 mg-potassium 1 tab PO BID #14 tabs 11/04/24 clavulanate 125 mg tablet tramadol 50 mg tablet 50 mg PO Q6H PRN pain (scale score 11/11/24 7-10) #30 tabs Allergies Allergy/AdvReac Type Severity Reaction Status Date / Time prednisone Allergy Severe Confusion Verified 04/22/24 11:58 celecoxib [From Celebrex] Allergy Intermediate Gastrointestinal Verified 04/22/24 11:58 Upset oxycodone [From Percocet] Allergy Intermediate Nausea Verified 04/22/24 11:58 Qjmhzko-HDS-PjV Reductase AdvReac Severe Autoimmune Verified 04/22/24 11:58 Inhibitor myositis [Pihjkds-Spm-Ddf Reductase Inhibitor] codeine AdvReac Mild Redness of Verified 04/22/24 11:58 Skin icosapent ethyl AdvReac Mild Nausea Verified 04/22/24 11:58 Review of Systems Review of Systems ROS Unobtainable: All systems reviewed & are unremarkable except as noted in HPI and below Patient History Medical History Anemia Cerebrovascular disease Chronic anticoagulation Coronary artery disease Essential hypertension Gait instability Gout History of GI tract cancer Hx of non-ST elevation myocardial infarction (NSTEMI) Iron deficiency anemia Kidney stones Low back pain Mixed hyperlipidemia Paroxysmal atrial fibrillation Primary osteoarthritis involving multiple joints Reactive depression Surgical History H/O lithotripsy Hx of appendectomy Hx of cardiac catheterization S/P cholecystectomy S/P small bowel resection Family History Mother Renal cancer Father War operations involving destruction of aircraft due to collision with other aircraft, personnel, sequela Social History details: (Pat), 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 Well-developed patient, in mild distress. HEAD: Atraumatic. Normocephalic. EYES: Pupils equal round and reactive. Extraocular motions intact. No scleral icterus. No injection or drainage. ENT: Nose without bleeding, purulent drainage. Throat without erythema, tonsillar hypertrophy or exudate. Airway patent. NECK: Trachea midline. Non tender CARDIOVASCULAR: Regular rate and rhythm without murmurs, gallops, or rubs. RESPIRATORY: Clear to auscultation. Breath sounds equal bilaterally. No wheezes, rales, or rhonchi. GASTROINTESTINAL: Abdomen soft, epigastric TTP but no r/r/g, nondistended. EXTREMITIES: No edema or joint tenderness. BACK: Nontender without deformity or crepitance. No flank tenderness. NEURO: AOx3. Expressive aphasia SKIN: No rash or erythema of visible areas Initial Vital Signs Initial Vital Signs: Vital Signs Temperature 98.3 F 11/13/24 18:32 Pulse Rate 72 11/13/24 18:32 Respiratory Rate 20 11/13/24 18:32 Blood Pressure 182/104 H 11/13/24 18:32 Pulse Oximetry 97 11/13/24 18:32 Oxygen Delivery Method Room Air 11/13/24 18:32 Course Orders Ordered: ED Orders 11/13/24 18:37 EKG-12 Lead Stat 11/13/24 19:18 Complete Blood Count AUTO DIFF Stat Comprehensive Metabolic Panel Stat Lactate (Lactic Acid) Stat Lipase Stat Procalcitonin Stat Troponin I Stat 11/13/24 19:31 CT abdomen pelvis w con Stat 11/13/24 19:33 CXR [XR chest 1V] Stat 11/13/24 20:00 Blood Culture Stat 11/13/24 20:09 Covid-19 + FLU A/B + RSV - PCR Stat Ondansetron HCl (Ondansetron 4 Mg/2 Ml Inj) 4 mg IV NOW PRN PRN Reason: Nausea And Vomiting Ondansetron HCl (Ondansetron 4 Mg Odt) 4 mg PO NOW PRN PRN Reason: Nausea And Vomiting Discontinued Medications Metoclopramide HCl (Metoclopramide 10 Mg/2 Ml Inj) 10 mg IV NOW ONE Stop: 11/13/24 19:58 Last Admin: 11/13/24 20:02 Dose: 10 mg Documented By: KIMBERLY Ondansetron HCl (Ondansetron 4 Mg/2 Ml Inj) 4 mg IV NOW ONE Stop: 11/13/24 19:33 Last Admin: 11/13/24 21:15 Dose: Not Given Documented By: KIMBERLY Vital Signs Vital signs: Vital Signs - 8 hr 11/13/24 18:32 11/13/24 19:01 11/13/24 19:02 Temperature 98.3 F Pulse Rate 72 68 71 Respiratory Rate 20 17 Blood Pressure 182/104 H Pulse Oximetry 97 93 94 Oxygen Delivery Method Room Air 11/13/24 19:02 11/13/24 19:30 11/13/24 19:31 Temperature Pulse Rate 75 75 Respiratory Rate 21 25 H Blood Pressure 178/103 H Pulse Oximetry 93 93 Oxygen Delivery Method Room Air 11/13/24 19:31 11/13/24 20:00 11/13/24 20:39 Temperature Pulse Rate 81 77 Respiratory Rate 19 Blood Pressure 204/122 H Pulse Oximetry 91 98 Oxygen Delivery Method 11/13/24 21:00 11/13/24 21:30 11/13/24 21:58 Temperature Pulse Rate 81 82 77 Respiratory Rate 19 23 20 Blood Pressure Pulse Oximetry 97 97 98 Oxygen Delivery Method 11/13/24 21:58 11/13/24 22:00 11/13/24 22:30 Temperature Pulse Rate 78 80 Respiratory Rate 17 21 Blood Pressure 142/86 H Pulse Oximetry 97 96 Oxygen Delivery Method 11/13/24 22:30 11/13/24 23:00 11/13/24 23:00 Temperature Pulse Rate 79 Respiratory Rate 20 Blood Pressure 162/85 H 145/88 H Pulse Oximetry 97 Oxygen Delivery Method MDM - Weakness Lab Data 11/13/24 19:18 11/13/24 19:18 Labs: Lab Results 11/13/24 11/13/24 Range/Units 19:18 20:09 WBC 13.1 H (4.5-11.0) X10^3/uL RBC 4.46 L (4.5-5.9) X10^6/uL Hgb 13.5 (13.5-17.5) g/dL Hct 41.8 (41-53) % MCV 93.7 (80-100) fL MCH 30.3 (26-34) PG MCHC 32.3 (30-36) % RDW 19.8 H (11.6-14.8) % Plt Count 225 (150-400) X10^3/uL Neut % (Auto) 76.1 H (50-75) % Lymph % (Auto) 10.6 L (25-40) % [place] % (Auto) 9.9 (3-14) % Eos % (Auto) 2.6 (2-4) % Baso % (Auto) 0.8 (0-2) % Neut # (Auto) 9900 H (9838-1060) /uL Lymph # (Auto) 1400 (9925-3795) /uL [place] # (Auto) 1300 H (0-900) /uL Eos # (Auto) 300 (0-450) /uL Baso # (Auto) 100 (0-100) /uL Sodium 143 (137-145) mmol/L Potassium 3.8 (3.4-5.1) mmol/L Chloride 110 H (98-107) mmol/L Carbon Dioxide 23 (22-32) mmol/L BUN 19 (9-20) mg/dL Creatinine 0.56 L (0.66-1.25) mg/dL Estimated GFR > 60 (>60) mL/min BUN/Creatinine Ratio 33.9 H (6-22) Glucose 107 H (70-99) mg/dL Lactate 1.1 (0.7-2.1) mmol/L Calcium 9.4 (8.4-10.2) mg/dL Total Bilirubin 0.6 (0.2-1.3) mg/dL AST 33 (17-59) IU/L ALT 26 (<50) IU/L Alkaline Phosphatase 103 (38-126) U/L Troponin I < 0.012 (0.01-0.034) ng/mL Total Protein 8.4 H (6.3-8.2) g/dL Albumin 4.1 (3.5-5.0) g/dL Globulin 4.3 H (1.7-4.1) g/dL Albumin/Globulin Ratio 1.0 (1.0-2.8) Lipase 89 (23-300) U/L Procalcitonin 0.057 (<0.5) ng/mL SARS-CoV-2 (PCR) Negative (Negative) Influenza A (RT-PCR) Flu a negative (NEGATIVE) Influenza B (RT-PCR) Flu b negative (NEGATIVE) RSV (PCR) Negative (Negative) Imaging Data Chest x-ray: Radiologist Impression: Patient: Hadley Wilkes MR#: [id number] : 1945 Acct:[id number] Age/Sex: 79 / M Date of Service: 11/13/24 Loc: ED Accession Number: [id number] Procedure: XR chest 1V Ordering Provider: Randall Irene D.O. PROCEDURE: XR CHEST 1V INDICATIONS: cough/chest pain TECHNIQUE: One view of the chest was acquired. COMPARISON: [facility], CR, XR CHEST 1V, 08/13/2024, 12:21. [facility], CR, XR CHEST 1V, 04/28/2024, 9:00. FINDINGS AND IMPRESSION: On this single view radiograph with low lung volumes, possible mild opacity is seen at the left costophrenic angle representing atelectasis versus early airspace disease. Consider future imaging surveillance to assess for resolution. Cardiomediastinal contours are unchanged. Normal heart size. Degenerative osseous changes. CT scan - abdomen/pelvis: Radiologist Impression: [place] [address] CT Scan Report Signed Patient: Hadley Wilkes MR#: [id number] : 1945 Acct:[id number] Age/Sex: 79 / M Date of Service: 11/13/24 Loc: ED Accession Number: [id number] Procedure: CT abdomen pelvis w con Ordering Provider: Randall Irene D.O. PROCEDURE: CT ABDOMEN PELVIS W CON INDICATIONS: epigastric pain/n/v/cough TECHNIQUE: After the administration of intravenous contrast, axial sections acquired from the lung bases to the pubic symphysis. Coronal and sagittal reformats were performed. For radiation dose reduction, the following was used: automated exposure control, adjustment of mA and/or kV according to patient size. COMPARISON: [facility], CT, CT ABDOMEN PELVIS W CON, 08/13/2024, 14:44. FINDINGS: Image quality: Diagnostic Lower chest: Basal atelectasis and areas of mild scarring. No dense airspace disease or pleural effusion. Coronary calcifications and annular cardiac calcifications. Liver: Unremarkable Gallbladder and biliary system: Cholecystectomy clips, nondilated Pancreas: Tple-wx-qwkfvfjf parenchymal atrophy. No ductal dilation. Surgical clips are seen around the head Spleen: Splenic granulomas Adrenals: No discrete nodules Kidneys: Numerous nonobstructing renal calculi. Multiple cysts are present. No hydronephrosis. Vessels and lymph nodes: Main portal vein appears patent. No abdominal aortic aneurysm. Krpp-xz-qkefzoen atherosclerotic calcifications of the aortoiliac system. No enlarged lymph nodes by size criteria Bowel and peritoneum: The stomach is distended. A stent is seen within the duodenum, possibly with impaction of internal luminal material. No obstruction in the small bowel. Mild rectal wall thickening. Moderate colonic fecal loading. Similar fat containing lesion in the right lower quadrant measuring about 6.1 cm. Internal heterogeneous density is seen. Body wall: Unremarkable Pelvis: Bladder contains air, which is likely from instrumentation. Mild bladder wall thickening. Correlate urinalysis. Pelvis is almost completely obscured by metallic artifact. Kibm-xo-gxqoecxe bilateral inguinal hernias. Bones: Bilateral hip arthroplasty. There are advanced degenerative osseous changes. IMPRESSION: Distended stomach. There is a stent in the distal duodenum, possibly with impacted proximal lobe material. Consider GI consultation. Mild rectal wall thickening also seen, possibly proctitis. Colonoscopy correlation could be obtained if indicated. Bladder wall thickening and small amount of air which may be from instrumentation. Correlate urinalysis. Many nonobstructing renal calculi. No hydronephrosis seen today. Similar fat containing lesion in the right anterior lower quadrant. This could be sequelae of fat necrosis or a fat containing neoplasm, attention on follow-up in six months or sooner. Other findings above ECG Data Interpretation: SR LAD HR 69 ID 242 QRS [address]-t wave change Unchanged from 03/01/24 MDM Narrative Medical decision making narrative: All lab work vital signs nurse triage note medication list previous ER visits chest x-ray and CT scan all reviewed. Patient given Zofran for which he subsequently continued to have nausea vomiting then given Reglan and lactated Ringer's at 150/hr. CT scan showed distended stomach there is a stent in the distal duodenum possibly with impacted proximal lobe material and to consider GI consultation. I spoke with Dr. Sotomayor GI at [facility] who has concern based on the presentation and CT scan findings that there may be a malignant obstruction with a stent and patient may potentially need endoscopic bypass. Case was then discussed with Dr. Cipriano Blanc hospitalist Lynda Vimal who has graciously accepted patient for inpatient admission. Differential diagnosis includes small bowel obstruction, pneumonia, sepsis, COVID, flu, RSV. Discharge Plan Departure Patient Disposition: [facility] Clinical Impression: Abdominal pain Qualifiers: Abdominal location: generalized Qualified Code(s): R10.84 - Generalized abdominal pain Nausea & vomiting Qualifiers: Vomiting type: projectile vomiting Qualified Code(s): R11.12 - Projectile vomiting Prescriptions: No Action acetaminophen 500 mg tablet 1,000 mg PO BID aspirin 81 mg tablet,delayed release (DR/EC) 81 mg PO DAILY ezetimibe 10 mg tablet 10 mg PO .PM sertraline 50 mg tablet 25 mg PO DAILY tramadol 50 mg tablet 50 mg PO Q6H PRN (Reason: pain (scale score 7-10)) Qty: 30 2RF mirtazapine 7.5 mg tablet 15 mg PO BEDTIME clopidogrel 75 mg tablet 75 mg PO DAILY losartan 50 mg tablet 50 mg PO BID iron bisglycinate chelate 28 mg iron capsule 28 mg PO DAILY amoxicillin-pot clavulanate 875-125 mg tablet 1 tab PO BID Qty: 14 0RF Repatha SureClick 140 mg/mL pen injector 140 mg SUBCUT Q2W pantoprazole 40 mg tablet,delayed release (DR/EC) 40 mg PO DAILY Qty: 100 3RF tamsulosin 0.4 mg capsule 0.4 mg PO DAILY hydroxyzine HCl 25 mg tablet 25 mg PO TID PRN (Reason: anxiety) guaifenesin 600 mg tablet extended release 12hr 1,200 mg PO Q12H PRN (Reason: cough) PreserVision Lutein 226-90-0.8-5 mg capsule PO Vision Formula (with lutein) 300 mcg-200 mg-27 mg-2 mg tablet 1 tab PO DAILY Rx Instructions: administer after a meal allopurinol 300 mg tablet 300 mg PO DAILY carvedilol 12.5 mg tablet 12.5 mg PO BID Referrals: Camacho Smith MD [Primary Care Provider] -
[2024-11-13 19:27] LABS: Add Manual Diff / Slide Review NO; Basophils Absolute Auto 100 /uL (0-100); Basophils Percent Auto 0.8 % (0-2); Eosinophils Absolute Auto 300 /uL (0-450); Eosinophils Percent Auto 2.6 % (2-4); Hematocrit 41.8 % (41-53); Hemoglobin 13.5 g/dL (13.5-17.5); Lymphocytes Absolute Auto 1400 /uL (1100-4500); Lymphocytes Percent Auto 10.6 % (25-40); Mean Corpuscular HGB Conc 32.3 % (30-36); Mean Corpuscular Hemoglobin 30.3 PG (26-34); Mean Corpuscular Volume 93.7 fL (80-100); Monocytes Absolute Auto 1300 /uL (0-900); Monocytes Percent Auto 9.9 % (3-14); Neutrophils Absolute Auto 9900 /uL (1500-7000); Neutrophils Percent Auto 76.1 % (50-75); Platelet Count 225 X10^3/uL (150-400); Red Blood Cell Count 4.46 X10^6/uL (4.5-5.9); Red Cell Distribution Width 19.8 % (11.6-14.8); White Blood Cell Count 13.1 X10^3/uL (4.5-11.0)
--- NOTE | 2024-11-13 19:31 | DI.CT.S_ITS ---
PROCEDURE: CT ABDOMEN PELVIS W CON INDICATIONS: epigastric pain/n/v/cough TECHNIQUE: After the administration of intravenous contrast, axial sections acquired from the lung bases to the pubic symphysis. Coronal and sagittal reformats were performed. For radiation dose reduction, the following was used: automated exposure control, adjustment of mA and/or kV according to patient size. COMPARISON: [facility], CT, CT ABDOMEN PELVIS W CON, 08/13/2024, 14:44. FINDINGS: Image quality: Diagnostic Lower chest: Basal atelectasis and areas of mild scarring. No dense airspace disease or pleural effusion. Coronary calcifications and annular cardiac calcifications. Liver: Unremarkable Gallbladder and biliary system: Cholecystectomy clips, nondilated Pancreas: Ndfs-qg-qlnanuvl parenchymal atrophy. No ductal dilation. Surgical clips are seen around the head Spleen: Splenic granulomas Adrenals: No discrete nodules Kidneys: Numerous nonobstructing renal calculi. Multiple cysts are present. No hydronephrosis. Vessels and lymph nodes: Main portal vein appears patent. No abdominal aortic aneurysm. Xyps-uq-gzzurzek atherosclerotic calcifications of the aortoiliac system. No enlarged lymph nodes by size criteria Bowel and peritoneum: The stomach is distended. A stent is seen within the duodenum, possibly with impaction of internal luminal material. No obstruction in the small bowel. Mild rectal wall thickening. Moderate colonic fecal loading. Similar fat containing lesion in the right lower quadrant measuring about 6.1 cm. Internal heterogeneous density is seen. Body wall: Unremarkable Pelvis: Bladder contains air, which is likely from instrumentation. Mild bladder wall thickening. Correlate urinalysis. Pelvis is almost completely obscured by metallic artifact. Dmwl-cw-jxfsecrf bilateral inguinal hernias. Bones: Bilateral hip arthroplasty. There are advanced degenerative osseous changes. IMPRESSION: Distended stomach. There is a stent in the distal duodenum, possibly with impacted proximal lobe material. Consider GI consultation. Mild rectal wall thickening also seen, possibly proctitis. Colonoscopy correlation could be obtained if indicated. Bladder wall thickening and small amount of air which may be from instrumentation. Correlate urinalysis. Many nonobstructing renal calculi. No hydronephrosis seen today. Similar fat containing lesion in the right anterior lower quadrant. This could be sequelae of fat necrosis or a fat containing neoplasm, attention on follow-up in six months or sooner. Other findings above Dictated by: Pal Zuniga M.D. on 11/13/2024 at 21:08 Approved by: Pal Zuniga M.D. on 11/13/2024 at 21:15
--- NOTE | 2024-11-13 19:33 | DI.RAD.S_ITS ---
PROCEDURE: XR CHEST 1V INDICATIONS: cough/chest pain TECHNIQUE: One view of the chest was acquired. COMPARISON: [facility], CR, XR CHEST 1V, 08/13/2024, 12:21. [facility], CR, XR CHEST 1V, 04/28/2024, 9:00. FINDINGS AND IMPRESSION: On this single view radiograph with low lung volumes, possible mild opacity is seen at the left costophrenic angle representing atelectasis versus early airspace disease. Consider future imaging surveillance to assess for resolution. Cardiomediastinal contours are unchanged. Normal heart size. Degenerative osseous changes. Dictated by: Pal Zuniga M.D. on 11/13/2024 at 20:27 Approved by: Pal Zuniga M.D. on 11/13/2024 at 20:27
[2024-11-13 19:37] LABS: Alanine Aminotransferase 26 IU/L (<50); Albumin 4.1 g/dL (3.5-5.0); Alkaline Phosphatase 103 U/L (38-126); Aspartate Aminotransferase 33 IU/L (17-59); BUN Creatinine Ratio 33.9 (6-22); Bilirubin Total 0.6 mg/dL (0.2-1.3); Blood Urea Nitrogen 19 mg/dL (9-20); Calcium 9.4 mg/dL (8.4-10.2); Carbon Dioxide 23 mmol/L (22-32); Chloride 110 mmol/L (98-107); Estimated Glomerular Filt Rate > 60 mL/min (>60); Globulin 4.3 g/dL (1.7-4.1); Glucose 107 mg/dL (70-99); HEMOLYSIS 17 (0-50); Lipase 89 U/L (23-300); Potassium 3.8 mmol/L (3.4-5.1); Sodium 143 mmol/L (137-145); Total Protein 8.4 g/dL (6.3-8.2)
[2024-11-13 19:52] LABS: Lactate (Lactic Acid) 1.1 mmol/L (0.7-2.1)
[2024-11-13] MEDS: METOCLOPRAMIDE 10 MG/2 ML INJ IV (20:02)
[2024-11-13 20:10] LABS: Troponin I < 0.012 ng/mL (0.01-0.034)
[2024-11-13 20:14] LABS: Procalcitonin 0.057 ng/mL (<0.5)
[2024-11-13 20:50] LABS: Influenza A - CEPHEID Flu A NEGATIVE (NEGATIVE); Influenza B - CEPHEID Flu B NEGATIVE (NEGATIVE); Respiratory Syncytial Virus Negative (Negative)
[2024-11-13 21:01] LABS: COVID-19 CEPHEID 4-PLEX PCR Negative (Negative)
[2024-11-14] VITALS: PULSE 73; RESP 29; O2SAT 99
[2024-11-14 00:01] VITALS: BP 151/96; PULSE 78; RESP 28; O2SAT 98
[2024-11-14] MEDS: LACTATED RINGERS 1,000 ML 150 ML IV (00:21)
[2024-11-14 00:30] VITALS: BP 157/90; PULSE 69; RESP 28; O2SAT 100
[2024-11-14 01:00] VITALS: BP 153/113; PULSE 77; RESP 26; O2SAT 96
[2024-11-14] MEDS: PROCHLORPERAZINE 10 MG/2 ML VIAL IV (01:08)
[2024-11-14] MEDS: cefTRIAXone 1,000 MG in SODIUM CHLORIDE 0.9% 100 ML 200 MG IV (01:08)
[2024-11-14 01:09] VITALS: BP 150/94; PULSE 74; RESP 22; O2SAT 96
[2024-11-14 01:30] VITALS: BP 142/83; PULSE 78; RESP 22; O2SAT 95
[2024-11-14] MEDS: AZITHROMYCIN 500 MG in DEXTROSE 5% IN WATER 250 ML 250 MG IV (01:32)
== END 2024-11-14 02:01 | disposition short-term general hospital (02) ==
PROVIDERS: Emergency Provider Family Medicine; PCP Internal Medicine
DX: R10.84 Generalized abdominal pain (principal); R11.12 Projectile vomiting; R50.9 Fever, unspecified; R05.9 Cough, unspecified
CPT/HCPCS: 0241U; 36415; 71045; 74177; 80053; 83605; 83690; 84145; 84484; 85025; 87040; 93005; 96361; 96365; 96367; 96375; 99284; J0696; J0780; J2765; Q9967

== ENCOUNTER → 2024-12-16 10:22 | Outpatient (CLI) | payer MEDICARE, OTHER, SELFPAY ==
[2023-02-20 16:04] VITALS: BMI 39.9
[2024-08-14 00:31] VITALS: PULSE 76; RESP 27; O2SAT 97
[2024-12-16 10:36] LABS: Appearance Urine UA SL CLOUDY; Bilirubin Urine UA NEGATIVE (NEGATIVE); Color Urine UA YELLOW; Glucose Urine UA NEGATIVE (Negative); Ketones Urine UA NEGATIVE (NEGATIVE); Leukocyte Esterase Urine UA NEGATIVE (NEGATIVE); Nitrite Urine UA NEGATIVE (Negative); Occult Blood Urine UA NEGATIVE (Negative); Protein Urine UA NEGATIVE (Negative); Urobilinogen Urine UA 0.2 E.U./dL (0.2); pH Urine UA 5.5 (4.5-8.0)
[2024-12-16 10:49] LABS: Bacteria Urine None Seen; Culture Indicated Urine Cult Not Indicated; RBC Urine None Seen (0-5/HPF); Squamous Epithelial Cell Urine 0-1 /HPF (0-5/HPF); Urine Volume 10mL (spun); WBC Urine 0-1/HPF (0-5/HPF)
== END ==
PROVIDERS: PCP Internal Medicine; Referring Provider Internal Medicine; Visit Provider Internal Medicine
DX: R30.0 Dysuria (principal)
CPT/HCPCS: 81001

== ENCOUNTER → 2025-03-30 12:16 | Outpatient (CLI) | payer MEDICARE, OTHER, SELFPAY ==
[2023-02-20 16:04] VITALS: BMI 39.9
[2024-08-14 00:31] VITALS: PULSE 76; RESP 27; O2SAT 97
[2025-03-30 14:06] LABS: Add Manual Diff / Slide Review NO; Hematocrit 47.3 % (41-53); Hemoglobin 15.8 g/dL (13.5-17.5); Lymphocytes Absolute Auto 1300 /uL (1100-4500); Mean Corpuscular HGB Conc 33.3 % (30-36); Mean Corpuscular Hemoglobin 32.5 PG (26-34); Mean Corpuscular Volume 97.5 fL (80-100); Platelet Count 158 X10^3/uL (150-400)
[2025-03-30 14:24] LABS: Alanine Aminotransferase 21 IU/L (<50); Albumin 4.1 g/dL (3.5-5.0); Albumin Globulin Ratio 1.2 (1.0-2.8); Alkaline Phosphatase 96 U/L (38-126); Blood Urea Nitrogen 28 mg/dL (9-20); Calcium 9.3 mg/dL (8.4-10.2); Carbon Dioxide 27 mmol/L (22-32); Chloride 105 mmol/L (98-107); Estimated Glomerular Filt Rate > 60 mL/min (>60); Globulin 3.5 g/dL (1.7-4.1); Glucose 98 mg/dL (70-99); HEMOLYSIS < 15 (0-50); Potassium 4.7 mmol/L (3.4-5.1); Sodium 143 mmol/L (137-145); Total Protein 7.6 g/dL (6.3-8.2)
[2025-03-30 14:52] LABS: Carcinoembryonic Antigen 3.6 ng/mL (0.1-3.0)
== END ==
PROVIDERS: PCP Internal Medicine; Referring Provider Internal Medicine; Visit Provider Internal Medicine
DX: C17.0 Malignant neoplasm of duodenum (principal)
CPT/HCPCS: 36415; 80053; 82378; 85025; 86301

== ENCOUNTER → 2025-05-06 11:26 | Outpatient (CLI) | payer MEDICARE, OTHER, SELFPAY ==
[2023-02-20 16:04] VITALS: BMI 39.9
[2024-08-14 00:31] VITALS: PULSE 76; RESP 27; O2SAT 97
--- NOTE | 2025-05-06 11:28 | DI.CT.S_ITS ---
PROCEDURE: CT CHEST ABD PEL W CON INDICATIONS: MALAIGNANT NEOPLASM OF DUODEDUM TECHNIQUE: After the administration of intravenous contrast, 5 mm thick sections acquired from the lung apices to the symphysis. 5 mm coronal and sagittal reformats were performed, with additional 7 mm MIP reformats through the lungs. For radiation dose reduction, the following was used: automated exposure control, adjustment of mA and/or kV according to patient size. COMPARISON: [facility], CT, CT ABDOMEN PELVIS W CON, 11/13/2024, 20:02. [facility], CT, CT CHEST ABD PEL W CON, 07/30/2022, 0:55. FINDINGS: Image quality: Excellent. CHEST: Lower Neck: No enlarged lymph nodes. Thyroid: No thyroid nodules which require sonographic follow up, per consensus guidelines. Axillae: No enlarged lymph nodes. Chest Wall: Unremarkable. Lungs and Pleura: No pneumothorax or pleural effusions. No consolidation or suspicious nodules. Left lower lung scarring is noted near the lingular segment but no metastatic disease is suspected. Heart: Heart size is normal. No pericardial effusion. Thoracic Vessels: The aorta and pulmonary arteries demonstrate normal size. Mediastinum and Alanna: No enlarged lymph nodes. Esophagus: No wall thickening. No hiatal hernia. ABDOMEN: Liver: No solid mass. Gallbladder: Previously resected Biliary ducts: No biliary dilation. Pancreas: No ductal dilation. Spleen: Size is within normal limits. Adrenal Glands: No adrenal nodules. Kidneys and Ureters: No hydronephrosis. No solid mass. No complex renal cystic lesion which requires follow up. Several scattered punctate bilateral nonobstructive renal collecting system calculi again seen, each sub 5 mm. Stomach and Bowel: Normal colonic caliber, without significant wall thickening. Postsurgical clips in the epigastrium again noted and a moderate degree of soft tissue lobulation is seen at the gastric antrum area which then transitions into what likely is a gastrojejunostomy conduit, containing a previously present expandable stent. No gastric distension is currently present. No adjacent adenopathy is seen. Peritoneum: No abnormal intraperitoneal fluid. No free air. Ventral Wall: No significant ventral hernia. Abdominal Nodes: No retroperitoneal or mesenteric adenopathy by size criteria. Vessels: Aorta and inferior vena cava are normal in size. PELVIS: Pelvic Organs: Unremarkable. Bladder: No bladder wall thickening, accounting for underdistention. Pelvic Nodes: No enlarged lymph nodes. Miscellaneous: No inguinal hernias are seen. Again noted in the pelvic peritoneal space is an ovoid fat density as was previously identified which has not changed in size or morphology or develops significant internal soft tissue component. This slightly impinges on the right colon at its medial border in that area, well visualized on series 2, image 148. Bones: No aggressive osseous abnormality. IMPRESSION: 1. 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 As discussed the distal gastric antrum just proximal to the area of a expandable stent crossing to the jejunum is lobulated, but in this postoperative circumstance it is difficult to accurately assess for postoperative change versus residual quiescent neoplasm as the underlying cause. 2. No adenopathy or distant metastatic disease has developed. 3. 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 Prior cholecystectomy. Dictated by: Suman Burrows M.D. on 05/06/2025 at 15:29 Approved by: Suman Burrows M.D. on 05/06/2025 at 15:40
[2025-05-06 11:56] LABS: Estimated Glomerular Filt Rate > 60 mL/min (>60)
== END ==
LOC: CT 11:27
PROVIDERS: PCP Internal Medicine; Referring Provider Internal Medicine; Visit Provider Emergency Medicine
DX: C17.0 Malignant neoplasm of duodenum (principal); Z90.49 Acquired absence of other specified parts of digestive tract; Z96.89 Presence of other specified functional implants
CPT/HCPCS: 36415; 71260; 74177; 82565; Q9967